=== PATIENT | male | born 1960 | race Caucasian/White ===

== ENCOUNTER → 2016-11-17 | Day surgery (SDC) | payer OTHER ==
[2016-11-07 11:21] VITALS: BMI 26.0
--- NOTE | 2016-11-07 11:55 | PAT Medication Instructions ---
Service Date Nov 07, 2016. Current Home Medication List Atenolol (Tenormin), 25 MG PO QAM Meloxicam (Mobic), 15 MG PO QAM Pantoprazole Sodium (Protonix), 40 MG PO QAM Pyridoxine (Vitamin B6), 100 MG PO DAILY PRN for prn Tocopheryl Acet,Dl-Alpha (Vitamin E), 1 TAB PO QAM Medication Instructions For Your Scheduled Surgery - Check with surgeon for instructions: Meloxicam (Mobic), 15 MG PO QAM - Hold the following medications 2 weeks prior to surgery: Tocopheryl Acet,Dl-Alpha (Vitamin E), 1 TAB PO QAM - Hold the following medications the morning of surgery: Pyridoxine (Vitamin B6), 100 MG PO DAILY PRN for prn - Take the following medications the morning of surgery with a sip of water: Pantoprazole Sodium (Protonix), 40 MG PO QAM Atenolol (Tenormin), 25 MG PO QAM - Take the following medications as scheduled the night before surgery: Pyridoxine (Vitamin B6), 100 MG PO DAILY PRN for prn If you have any questions please call us at [phone] or [phone] or [phone]
--- NOTE | 2016-11-07 12:44 | DIAGNOSTIC IMAGING REPORT ---
CHEST PREADMISSION(PA/LAT) CLINICAL HISTORY: Preoperative chest COMPARISON STUDY: 05/27/2013 FINDINGS: The cardiac and mediastinal contours are normal. There is no evidence of focal pulmonary consolidation. There is no evidence of failure. No pleural effusions are visualized.[ There is a linear band of subsegmental left lower lobe atelectasis. There is ankylosis of the dorsal spine. IMPRESSION: Left lower lobe subsegmental atelectatic change. Otherwise no acute findings. Electronically signed by: Jermaine Wiseman M.D. 11/07/2016 12:43 PM Dictated Date/Time: 11/07/2016 12:43 PM
[2016-11-07 13:00] LABS: URINE APPEARANCE CLEAR (CLEAR); URINE BILIRUBIN NEG (NEG); URINE COLOR YELLOW; URINE NITRITE NEG (NEG); URINE PH 8.5 (4.5-7.5); URINE SPECIFIC GRAVITY 1.018 (1.000-1.030); UROBILINOGEN NEG (NEG); ZZUR CULT IF INDIC CLEAN CATCH NO
[2016-11-07 13:05] LABS: MANUAL MICROSCOPIC REQUIRED? NO; REVIEW REQ? NO
--- NOTE | 2016-11-16 11:51 | HISTORY & PHYSICAL EXAMINATION ---
DATE OF ADMISSION: 11/17/2016 CHIEF COMPLAINT: Left foot pain. HISTORY OF PRESENT ILLNESS: The patient is a 56-year-old gentleman with known hallux valgus deformity about his left great toe. He is having increasing pain with weightbearing and daily activities as well as difficulty with shoe wear. Due to ongoing pain and disability, he now desires to proceed with left hallux valgus bunionectomy. PAST MEDICAL HISTORY: Hypertension, anxiety, ankylosing spondylitis, Crohn's disease. PAST SURGICAL HISTORY: Unknown. MEDICATIONS: Cosentyx 150 mg injection every 4 weeks, Relafen 500 mg 2 times daily, vitamin B12 1000 mcg daily, vitamin D3 500 mg daily, Tenormin 25 mg daily, Protonix 40 mg 30 minutes before first meal of the day, Neurontin 100 mg 2 capsules 3 times daily, melatonin 5 mg at bedtime. ALLERGIES: CIPRO, BEE STINGS, CHANTIX, ENBREL, SHELLFISH. SOCIAL HISTORY AND REVIEW OF SYSTEMS: Noncontributory. PHYSICAL EXAMINATION: GENERAL: Well-nourished, well-developed male who appears his stated age. HEENT: Normocephalic, atraumatic, extraocular movements intact, oropharynx pink and moist. NECK: Supple without adenopathy. LUNGS: Clear to auscultation bilaterally. HEART: Regular rate and rhythm. ABDOMEN: Soft, nontender, nondistended. EXTREMITIES: The upper extremities within normal limits. The left foot has a visual bunion deformity of the first ray. There is valgus alignment of the first MTP joint. X-RAYS: X-rays were reviewed. He has moderate to severe hallux valgus deformity about the first MTP joint. ASSESSMENT: Left foot hallux valgus deformity. PLAN: Risks versus benefits were discussed, consent was obtained. We will proceed with left foot man bunionectomy without proximal osteotomy upon preoperative workup and medical clearance.
[~2016-11-17] VITALS: Ht 167.6 cm; Wt 74.8 kg
[~2016-11-17] MED LIST: ACETAMINOPHEN 500 MG TAB PO SCH; ATEN-173 PO; CLINDAMYCIN 600 MG/54 ML D5W IV SCH; CeleBREX 200 MG CAP PO SCH; DEXAMETHASONE 4 MG TAB PO SCH; FAMOTIDINE 20 MG TAB PO SCH; FENTANYL CITRATE INJ 50 MCG/1 ML 2 ML VIAL ONE; FERR1TAB13 PO; GABAPENTIN 300 MG CAP PO SCH; HYDR-5688 PO; LACTATED RINGER'S 1000ML 1,000 ML IV SCH; LIDOCAINE 2% 20 MG/ML 5ML SYR ONE; MAGN250T8 PO; MELO15TA4 PO; METOCLOPRAMIDE HCL 10 MG TAB PO SCH; MIDAZOLAM HCL 1 MG/ML 2ML VIAL ONE; PANT40TA PO; PROPOFOL IV EMULSION 10 MG/ML 20 ML VIAL IV ONE; PYRI100T4 PO; TPRSR/25 PO; VTME100 PO; magnesium PO
[2016-11-17 06:03] VITALS: BP 131/73; PULSE 98; TEMP 39.3; O2SAT 96; Ht 167.6 cm; Wt 74.8 kg
[2016-11-17 06:16] LABS: BASO % 0.2 %; BASO ABS # 0.02 K/uL (0-0.2); EOS % 0.6 %; HEMATOCRIT 37.1 % (42-52); IG% 0.3 %; LYMPH ABS # 0.56 K/uL (1.2-3.4); MEAN CELL VOLUME 83.9 fL (80-100); MEAN PLATELET VOLUME 10.3 fL (7.4-10.4); MONO % 8.3 %; NEUT % 84.6 %; PLATELET COUNT 148 K/uL (130-400); RED BLOOD COUNT 4.42 M/uL (4.7-6.1); WHITE BLOOD COUNT 9.26 K/uL (4.8-10.8)
[2016-11-17 06:18] LABS: COMPLETE YES; MEAN CORPUSCULAR HGB CONC 34.5 g/dl (32-36)
--- NOTE | 2016-11-17 07:06 | Progress Note ---
Progress Note Date of Service Nov 17, 2016. Progress Note Pt w/ fever of 39.3, cough, lethargy, decreased breath sounds at R base. Suspect respiratory process. Case cancelled to avoid increased risk of respiratory complications w/ anesthesia. Pt asked to see PCP.
[2016-11-17 07:48] LABS: ESTIMATED AVERAGE GLUCOSE 100 mg/dl; HA1C FLAG Normal (Normal)
--- NOTE | 2016-11-24 13:38 | EDITING REQUIRED CODING QUERY ---
SUPPORTING DIAGNOSIS NEEDED A supporting diagnosis is required for the test/procedure performed on this patient in order for us to be reimbursed by the patient's insurance. Please provide a supporting diagnosis for the following test/procedure listed below next to the test name along with your signature. *If there is no additional diagnosis for this patient that would support the following test/procedure please document that below next to the test/procedure. Test(s)/Procedure(s) that require a supporting diagnosis: * HEMOGLOBIN A1C Diabetes DIAGNOSIS: Provider Signature: Date: Thank you Valentina Jack Vittana Information Management Once completed, please kindly fax back to [phone] For questions please call [phone]
== END | disposition home or self-care (01) ==
LOC: C.ACU 11-07 11:03
DX: M20.12 Hallux valgus (acquired), left foot (principal); Z53.9 Procedure and treatment not carried out, unspecified reason; E11.9 Type 2 diabetes mellitus without complications

== ENCOUNTER → 2017-01-09 | Outpatient (CLI) | payer OTHER ==
[~2017-01-09] MED LIST changes: -ACETAMINOPHEN 500 MG TAB PO SCH; -CLINDAMYCIN 600 MG/54 ML D5W IV SCH; -CeleBREX 200 MG CAP PO SCH; -DEXAMETHASONE 4 MG TAB PO SCH; -FAMOTIDINE 20 MG TAB PO SCH; -FENTANYL CITRATE INJ 50 MCG/1 ML 2 ML VIAL ONE; -GABAPENTIN 300 MG CAP PO SCH; -LACTATED RINGER'S 1000ML 1,000 ML IV SCH; -LIDOCAINE 2% 20 MG/ML 5ML SYR ONE; -METOCLOPRAMIDE HCL 10 MG TAB PO SCH; -MIDAZOLAM HCL 1 MG/ML 2ML VIAL ONE; -PROPOFOL IV EMULSION 10 MG/ML 20 ML VIAL IV ONE
== END | disposition home or self-care (01) ==
LOC: C.CPL 11:26
DX: M20.12 Hallux valgus (acquired), left foot (principal)

== ENCOUNTER 2017-01-12 09:44 | Day surgery (SDC) | payer OTHER ==
--- NOTE | 2017-01-11 11:58 | HISTORY & PHYSICAL EXAMINATION ---
DATE OF ADMISSION: 01/12/2017 CHIEF COMPLAINT: Left foot pain. HISTORY OF PRESENT ILLNESS: The patient is a 56-year-old male, seen and evaluated in our office for left foot pain and disability. X-rays and evaluation demonstrated a hallux valgus deformity. Due to ongoing pain and disability and difficulty with shoe wear, the patient now desires to proceed with a left foot hallux valgus correction. PAST MEDICAL HISTORY: Hypertension, depression, anemia, cirrhosis of the liver, and enlarged prostate. PAST SURGICAL HISTORY: Hernia repair. MEDICATIONS: Meloxicam 15 mg daily, atenolol 25 mg daily, pantoprazole 40 mg daily, and ferrous sulfate daily. ALLERGIES: PENICILLIN, BEE STINGS AND SHELLFISH. SOCIAL HISTORY AND REVIEW OF SYSTEMS: Noncontributory. PHYSICAL EXAMINATION: GENERAL: Well-nourished and well-developed male, who appears his stated age. HEENT: Normocephalic and atraumatic. Extraocular movements intact. Oropharynx is pink and moist. NECK: Supple without adenopathy. LUNGS: Clear to auscultation bilaterally. HEART: Regular rate and rhythm. ABDOMEN: Soft, nontender, and nondistended. EXTREMITIES: The upper extremities are within normal limits. The left foot demonstrates an obvious hallux valgus deformity. He has a large medial eminence. X-RAYS: X-rays were reviewed. There is obvious hallux valgus deformity. ASSESSMENT: Left foot hallux valgus deformity. PLAN: Apparent risks versus benefits discussed. Consent was obtained. The patient's primary care physician is Dr. Díaz. We will proceed with left foot Singh bunionectomy upon preoperative workup and medical clearance. CHINO
[2017-01-11 13:19] VITALS: BMI 26.0
[~2017-01-12] VITALS: Ht 167.6 cm; Wt 74.5 kg
[~2017-01-12 09:44] MED LIST changes: +CLINDAMYCIN 600 MG/54 ML D5W IV SCH; -HYDR-5688 PO; +LACTATED RINGER'S 1000ML 1,000 ML IV SCH; -PYRI100T4 PO; -TPRSR/25 PO; -VTME100 PO; -magnesium PO
[2017-01-12 10:22] VITALS: BP 135/79; PULSE 65; TEMP 36.7; O2SAT 99; Ht 167.6 cm; Wt 74.5 kg
[2017-01-12 10:51] LABS: INR 1.3 (0.9-1.1); PARTIAL THROMBOPLASTIN RATIO 1.2; PROTHROMBIN TIME (PATIENT) 13.9 SECONDS (9.0-12.0)
[2017-01-12] MEDS ORDERED: ROPIVACAINE 0.5% 5 MG/ML 30 ML VIAL ONE (10:57)
[2017-01-12] MEDS ORDERED: ATROPINE SULFATE 0.1 MG/ML 5ML SYR IV PRN (11:45)
[2017-01-12] MEDS ORDERED: ONDANSETRON INJ 2 MG/ML 2 ML VIAL IV PRN (11:45)
[2017-01-12] MEDS ORDERED: EpHEDrine SULFATE INJ 50 MG/ML AMP IV PRN (11:45)
[2017-01-12] MEDS ORDERED: PHENYLEPHRINE 100MCG/ML 5ML SYR IV PRN (11:45)
--- NOTE | 2017-01-12 12:05 | History & Physical Bridge Note ---
H&P Re-Evaluation Bridge Note: I have examined the patient, reviewed the History & Physical and in the interval since the performance of the History & Physical I have noted the following changes of clinical significance: No changes noted
[2017-01-12] MEDS ORDERED: MIDAZOLAM HCL 1 MG/ML 2ML VIAL ONE (12:28)
[2017-01-12] MEDS ORDERED: FENTANYL CITRATE INJ 50 MCG/1 ML 2 ML VIAL ONE (12:28)
[2017-01-12] MEDS ORDERED: PROPOFOL IV EMULSION 10 MG/ML 20 ML VIAL IV ONE (13:47)
[2017-01-12] MEDS ORDERED: LIDOCAINE HCL 2% 2 ML VIAL (20MG/ML) ONE (13:47)
[2017-01-12] MEDS ORDERED: ONDANSETRON INJ 2 MG/ML 2 ML VIAL ONE (13:47)
[2017-01-12] MEDS ORDERED: DEXAMETHASONE SOD INJ 4 MG/ML VIAL ONE (13:47)
[2017-01-12] MEDS ORDERED: EpHEDrine SULFATE 50MG/5ML SYR ONE (13:47)
--- NOTE | 2017-01-12 14:01 | [facility] Post Operative Brief Note ---
Immediate Operative Summary Operative Date Jan 12, 2017. Pre-Operative Diagnosis Left Foot Hallux Valgus Deformity Post-Operative Diagnosis Left Foot Hallux Valgus Deformity Procedure(s) Performed Left Foot Singh Bunionectomy Surgeon Dr. Davey Content Architect Surgeon(s) KATI [place] Estimated Blood Loss 1cc Findings severe hallux valgus Specimens A. Medial Emenants Left Great Toe Complication(s) None Disposition Recovery Room / PACU
[2017-01-12] MEDS ORDERED: SODIUM CHLORIDE 0.9% 1000ML 1,000 ML IV SCH (14:17)
[2017-01-12] MEDS ORDERED: HYDR-5688 PO (14:19)
--- NOTE | 2017-01-12 14:20 | OPERATIVE REPORT ---
DATE OF OPERATION: 01/12/2017 PREOPERATIVE DIAGNOSIS: Hallux valgus left great toe. POSTOPERATIVE DIAGNOSIS: Hallux valgus left great toe. PROCEDURE: Bunionectomy, left great toe. SURGEON: Dr. Davey. ROVING SIZER: Ryley Galeana PA-C. ANESTHESIA: General. COMPLICATIONS: None. Mr. Galeana was essential through all portions of the case including prepping, draping, positioning, surgical first assistant, wound closure and dressing application. OPERATION AND FINDINGS: The patient's left foot was prepped and draped in usual sterile manner. Limb was exsanguinated with an Esmarch bandage and ankle tourniquet was applied. A longitudinal incision was made over the medial eminence. Subcutaneous tissue was bluntly dissected. Electrocautery was used for hemostasis. An L-shaped incision was made the base at the joint line extending proximally along the first metatarsal. A 5 mm section of the distal limb was removed. Attention was turned to the first interspace where a longitudinal incision was made and releases were carried out laterally to release any valgus creating soft tissue. The toe was held in a straightened position and was affixed using a single 0.062 K-wire. Wounds were irrigated and the medial capsule was closed using 4-0 Tycron. Subcutaneous tissue was closed using 2-0 Monocryl and the skin was closed with 4-0 nylon. Layered repair was carried out in the incision in the first interspace as well. Sterile dressing of Adaptic, fluffs, 4 x 4's, Kerlix and Coban was applied. The patient was awakened and taken to recovery in stable and good condition. He tolerated the procedure well. I attest to the content of the Intraoperative Record and any orders documented therein. Any exceptions are noted below. MTDD
--- NOTE | 2017-01-12 14:20 | DIAGNOSTIC IMAGING REPORT ---
LEFT TOE(S) MIN 2 VIEWS CLINICAL HISTORY: LT BUNIONECTOMY COMPARISON: None. DISCUSSION: Evidence for bunionectomy and linear pin fixation expected postoperative change within the soft tissues IMPRESSION: Intraoperative image intensifier usage for a left bunionectomy and pin fixation The above report was generated using voice recognition software. It may contain grammatical, syntax or spelling errors. Electronically signed by: Armani Fitzgerald M.D. 01/12/2017 2:19 PM Dictated Date/Time: 01/12/2017 2:18 PM
--- NOTE | 2017-01-12 14:25 | Discharge Instructions ---
Discharge Instructions Date of Service Jan 12, 2017. Visit Reason for Visit: Left Foot Hallux Valgus Discharge Discharge Diagnosis / Problem: Left foot hallux valgus Discharge Goals Goal(s): Decrease discomfort, Improve function Activity Recommendations Activity Limitations: as noted below Weightbearing Status: Left weightbearing (as tolerated) Anesthesia . Post Anesthesia Instructions: If you have had General Anesthesia or IV Sedation: * Do not drive today. * Resume driving when surgeon permits. * Do not make important decisions or sign legal documents today. * Call surgeon for: 1. Temperature elevations greater than 101 degrees F. 2. Uncontrollable pain. 3. Excessive bleeding. 4. Persistent nausea and vomiting. 5. Medication intolerance (nausea, vomiting or rash). * For nausea and vomiting use only clear liquids such as: tea, soda, bouillon until nausea subsides, then gradually increase diet as tolerated. * If you have any concerns or questions, call your surgeon's office. If physician is unavailable and it is an emergency, call 911 or go to the nearest emergency room. . Instructions / Follow-Up Instructions / Follow-Up Weightbearing as tolerated with post-op shoe. Frequent ice and elevation as needed. Maintain dressing until follow-up with MD. Follow-up with MD in 3-5 days for dressing change. Call for appt if necessary. Diet Recommendations Recommended Home Diet: resume previous diet Procedures Procedures Performed: Left Foot Singh Bunionectomy Pending Studies Studies pending at discharge: no Medical Emergencies . Who to Call and When: Medical Emergencies: If at any time you feel your situation is an emergency, please call 911 immediately. . Non-Emergent Contact Non-Emergency issues call your: Surgeon Call Non-Emergent contact if: temperature is above 101.5, your pain is not controlled, wound has increased drainage, wound has increased redness . . "Provider Documentation" section prepared by Ryley Galeana PA-C. . [place] Drug Monitoring Program Search Results: patient reviewed within database, no issues identified
[2017-01-12] MEDS: HYDROmorphone INJ 2 MG/ML SYR/VIAL IV PRN ×2 (14:29→14:41)
[2017-01-12] MEDS ORDERED: OXYCODONE/ACETAMINOPHEN 5-325 TAB PO PRN (14:30)
[2017-01-12] MEDS ORDERED: HYDROCODONE/ACETAMOPHEN 5/325MG TAB PO PRN (14:30)
--- NOTE | 2017-01-12 14:43 | Anesthesiology Progress Note ---
Anesthesia Post Op Note Date & Time Jan 12, 2017 at 14:43 Vital Signs Pain Intensity: 8.0 Vital Signs Past 12 Hours Date Time Temp Pulse Resp B/P (MAP) Pulse Ox O2 Delivery O2 Flow Rate FiO2 01/12/17 14:20 36.4 94 18 126/80 100 Mask 10 01/12/17 10:22 36.7 65 20 135/79 (97) 99 Room Air Notes Mental Status: alert / awake / arousable, participated in evaluation Pt Amnestic to Procedure: Yes Nausea / Vomiting: adequately controlled Pain: adequately controlled Airway Patency, RR, SpO2: stable & adequate BP & HR: stable & adequate Hydration State: stable & adequate Anesthetic Complications: no major complications apparent
[2017-01-12 15:15] VITALS: BP 139/78; PULSE 79; TEMP 36.5; O2SAT 95
[2017-01-12 15:45] VITALS: BP 140/85; PULSE 80; O2SAT 95
[2017-01-12] MEDS ORDERED: OXYCODONE/ACETAMINOPHEN 5-325 TAB ONE (15:57)
[2017-01-12 16:15] VITALS: BP 142/86; PULSE 78; TEMP 36.5; O2SAT 95
== END 2017-01-12 16:25 | disposition home or self-care (01) ==
LOC: C.ACU 09:44
DX: M20.12 Hallux valgus (acquired), left foot (principal); I10 Essential (primary) hypertension; D64.9 Anemia, unspecified; K74.60 Unspecified cirrhosis of liver; Z86.59 Personal history of other mental and behavioral disorders

== ENCOUNTER 2017-02-02 17:23 | Emergency (ER) | payer OTHER ==
[~2017-02-02] VITALS: Ht 167.6 cm; Wt 76.0 kg
[~2017-02-02 17:23] MED LIST changes: -CLINDAMYCIN 600 MG/54 ML D5W IV SCH; +HYDR-5688 PO; -LACTATED RINGER'S 1000ML 1,000 ML IV SCH; -MAGN250T8 PO
[2017-02-02 17:29] VITALS: TEMP 36.8; Ht 167.6 cm; Wt 76.0 kg
[2017-02-02] MEDS ORDERED: HYDROmorphone INJ 0.5 MG/0.5 ML SYR IV STA (17:46)
--- NOTE | 2017-02-02 18:02 | EMERGENCY ROOM VISIT NOTE ---
History Report prepared by Iram: Andres Spangler Under the Supervision of: Dr. Yris Chaidez D.O. First contact with patient: 17:33 Chief Complaint: EDEMA TO EXTREMITY Stated Complaint: POSSIBLE DVT - POST-OP History of Present Illness The patient is a 56 year old male who presents to the Emergency Room with complaints of worsening edema that began a week ago. He rates his pain as a 10/ 10 in severity. The patient states that he had a bunionectomy two weeks ago and a repair of his hammer toe. He states that he went back to get his stitches out a week ago and admits to some mild lower extremity edema in his left foot. The patient states that in the last two days the edema had worsened. He admits that he has been changing his dressings twice a day and elevating his foot at all times. The patient states that the pain in his foot was so severe that he "wanted to cut his foot off". He admits that he was given hydrocodone, but reports that he is allergic to Codeine. He states that he recently changed his blood pressure medication to Metoprolol and believes that this caused his edema since he noticed the swelling when he took the medication. He also states that he also has been noticing spikes in his blood pressure and a hot sensation in his face. He also admits to experiencing constipation. The patient states that he has a paradoxical reaction to Benadryl and cannot take NSAIDS due to his previous episode of "bleeding out and losing 9 pints". He reports that he has been able to take Dilaudid in the past. The patient admits that he has a history of Chron's disease and ulcers. He admits that he is a former smoker and drinker. The patient denies any fevers, chills, SOB, chest pain, chest pressure , heart palpitations, nausea, and a history of a blood clot. Source of History: patient Onset: one week ago Position: foot (left) Symptom Intensity: 10/10 Timing: worsening Modifying Factors (Relieving): elevation Associated Symptoms: No fevers, No chills, No chest pain, No SOB, No nausea Note: Associated symptoms include: spiked blood pressure, hot sensation in his face, left foot pain Review of Systems See HPI for pertinent positives & negatives. A total of 10 systems reviewed and were otherwise negative. 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 (11) Esophagitis Nos (12) Hypertension Nos (13) Liver disease, chronic, due to alcohol (14) Portal Hypertension (15) Psychosis Nos Surgical Problems: (1) No significant past surgical history Family History Cancer Gallbladder disease Heart disease Hypertension Lung disease Social History Smoking Status: Former Smoker Alcohol Use: occasionally Drug Use: none Marital Status: single Housing Status: lives alone Occupation Status: disabled Current/Historical Medications Scheduled Meloxicam (Mobic), 15 MG PO QAM Metoprolol Succinate (Metoprolol Succinate ER), 25 MG PO DAILY Pantoprazole Sodium (Protonix), 40 MG PO QAM Scheduled PRN Hydrocodone/Acetaminophen 5MG/325MG (Benedict 5MG/325MG), 1-2 TABLET PO q4-6 PRN for Pain Allergies Coded Allergies: Adalimumab (Verified Allergy, Severe, RASH, 01/12/17) severe cutaneous local reaxtion Etanercept (Verified Allergy, Severe, rash, 01/12/17) severe cutaneous local reaxtion SHELL FISH (Verified Allergy, Severe, ANAPHYLAXIS, 01/12/17) Tromethamine (Verified Allergy, Severe, rash, 01/12/17) severe cutaneous local reaxtion Penicillins (Verified Allergy, Intermediate, passed out, 01/12/17) BEE STING (Verified Allergy, Unknown, Passed out., 01/12/17) Benzyl Alcohol (Verified Allergy, Unknown, UNKNOWN, 01/12/17) Shellfish (Verified Adverse Reaction, Unknown, Hypertension., 01/12/17) Varenicline (Verified Adverse Reaction, Unknown, Veins in feet blew., 01/12) Uncoded Allergies: BEE STINGS (Allergy, Severe, SHORTNESS OF BREATH/ANAPHYLAXIS, 11/07/16) Physical Exam Vital Signs Date Time Temp Pulse Resp B/P (MAP) Pulse Ox O2 Delivery O2 Flow Rate FiO2 02/02/17 20:44 87 19 131/80 97 02/02/17 20:03 89 19 129/82 96 Room Air 02/02/17 18:17 90 18 124/83 96 Room Air 02/02/17 17:29 36.8 95 20 122/79 93 Room Air Physical Exam GENERAL: alert, well appearing, well nourished, no distress, non-toxic EYE EXAM: normal conjunctiva, PERRL and EOM's grossly intact OROPHARYNX: no exudate, no erythema, lips, buccal mucosa, and tongue normal and mucous membranes are moist NECK: supple, no nuchal rigidity, no adenopathy, non-tender LUNGS: Diminished breath sounds bilaterally. No rales or rhonchi. Normal chest wall mechanics HEART: no murmurs, S1 normal and S2 normal ABDOMEN: Small umbilical hernia that is easily reduced abdomen soft, Slightly tympanitic to percussion, normo-active bowel sounds, no masses, no rebound or guarding. BACK: Back is symmetrical on inspection and there is no deformity, no midline tenderness, no CVA tenderness. SKIN: no rashes and no bruising UPPER EXTREMITIES: upper extremities are grossly normal. LOWER EXTREMITIES: left lower extremity edema 3+.Well appearing and well healing surgical incision along medial aspect of first MTP. Slightly decreased ROM secondary to pain. No surrounding erythema, drainage, or bleeding. Normal sensory. Pulses are intact. Right lower extremity is unremarkable. NEURO EXAM: Normal sensorium, cranial nerves II-XII grossly intact, normal speech, no gross weakness of arms, no gross weakness of legs. Gross sensation intact. Medical Decision & Procedures ER Provider Diagnostic Interpretation: Radiology results have been interpreted by the radiologist and reviewed by me. LEFT LOWER EXTREMITY VENOUS DOPPLER CLINICAL HISTORY: Bilateral lower extremity edema. COMPARISON STUDY: Bilateral lower extremity venous Doppler May 26, 2013. TECHNIQUE: Sonography of the deep venous system of the left lower extremity was performed. Compression and augmentation were evaluated. FINDINGS: The left common femoral, superficial femoral and popliteal veins were compressible. Augmentation was normal. Flow was shown within the deep calf vessels. IMPRESSION: No evidence of deep venous thrombus within the left lower extremity. Electronically signed by: Raul Burkett M.D. 02/02/2017 7:47 PM Dictated Date/Time: 02/02/2017 7:41 PM ABDOMEN 4 VIEWS HISTORY: nausea, abdominal distention COMPARISON: Chest 11/07/2016. Abdomen and pelvis CT 07/14/2014. FINDINGS: The lungs are clear. The cardiomediastinal silhouette is within normal limits. There is no pneumoperitoneum or pneumatosis. Multiple mildly distended gas-filled loops of large and small bowel. The small bowel loops measure up to 3.2 cm in diameter. The transverse colon measures up to 6.4 cm. No evidence for bowel obstruction. No pathologic calcifications. IMPRESSION: Multiple mildly dilated gas-filled loops of large and small bowel. This favors an ileus. Electronically signed by: Jorge Luis Nguyen M.D. 02/02/2017 8:02 PM Dictated Date/Time: 02/02/2017 7:57 PM Laboratory Results 02/02/17 18:11 Red Blood Count 4.51, Mean Corpuscular Volume 82.9, Mean Corpuscular Hemoglobin 29.3, Mean Corpuscular Hemoglobin Concent 35.3, Mean Platelet Volume 9.1, Neutrophils (%) (Auto) 60.9, Lymphocytes (%) (Auto) 23.1, Monocytes (%) (Auto) 11.3, Eosinophils (%) (Auto) 2.8, Basophils (%) (Auto) 1.8, Neutrophils # (Auto ) 4.86, Lymphocytes # (Auto) 1.84, Monocytes # (Auto) 0.90, Eosinophils # (Auto ) 0.22, Basophils # (Auto) 0.14 02/02/17 18:11 Test 02/02/17 18:11 White Blood Count 7.97 K/uL (4.8-10.8) Red Blood Count 4.51 M/uL (4.7-6.1) Hemoglobin 13.2 g/dL (14.0-18.0) Hematocrit 37.4 % (42-52) Mean Corpuscular Volume 82.9 fL (80-100) Mean Corpuscular Hemoglobin 29.3 pg (25-34) Mean Corpuscular Hemoglobin Concent 35.3 g/dl (32-36) Platelet Count 318 K/uL (130-400) Mean Platelet Volume 9.1 fL (7.4-10.4) Neutrophils (%) (Auto) 60.9 % Lymphocytes (%) (Auto) 23.1 % Monocytes (%) (Auto) 11.3 % Eosinophils (%) (Auto) 2.8 % Basophils (%) (Auto) 1.8 % Neutrophils # (Auto) 4.86 K/uL (1.4-6.5) Lymphocytes # (Auto) 1.84 K/uL (1.2-3.4) Monocytes # (Auto) 0.90 K/uL (0.11-0.59) Eosinophils # (Auto) 0.22 K/uL (0-0.5) Basophils # (Auto) 0.14 K/uL (0-0.2) RDW Standard Deviation 49.1 fL (36.4-46.3) RDW Coefficient of Variation 16.2 % (11.5-14.5) Immature Granulocyte % (Auto) 0.1 % Immature Granulocyte # (Auto) 0.01 K/uL (0.00-0.02) Anion Gap 7.0 mmol/L (3-11) Est Creatinine Clear Calc Drug Dose 105.8 ml/min Estimated GFR () 122.6 Estimated GFR (Non- 105.8 BUN/Creatinine Ratio 9.6 (10-20) Calcium Level 8.8 mg/dl (8.5-10.1) Phosphorus Level 3.7 mg/dl (2.5-4.9) Magnesium Level 1.9 mg/dl (1.8-2.4) Total Bilirubin 1.0 mg/dl (0.2-1) Aspartate Amino Transf (AST/SGOT) 40 U/L (15-37) Alanine Aminotransferase (ALT/SGPT) 29 U/L (12-78) Alkaline Phosphatase 148 U/L (45-117) Total Protein 7.7 gm/dl (6.4-8.2) Albumin 3.0 gm/dl (3.4-5.0) Globulin 4.7 gm/dl (2.5-4.0) Albumin/Globulin Ratio 0.6 (0.9-2) Ethyl Alcohol mg/dL 285.0 mg/dl (0-3) Laboratory results per my review. Medications Administered Medications (Trade) Dose Ordered Sig/Ronaldo Route Start Time Stop Time Status Last Admin Dose Admin Hydromorphone HCl (Dilaudid Inj) 0.5 mg NOW STAT IV 02/02/17 17:46 02/02/17 17:48 DC 02/02/17 18:26 0.5 MG ED Course 1735: The patient was evaluated in room A09B. A complete history and physical exam was performed. 1746: Ordered Dilaudid Injection 0.5 mg IV. 1957: Upon reevaluation, the patient is feeling better. Admits to daily wine and 2 cigarettes a day. Discussed risks of this and his overall health, discussed risks of meloxicam given hx of PUD and gi bleed. He states this is being managed by his PCP to help with the pain of his ankylosing spondylitis. I discussed the findings and the treatment plan with the patient. He verbalizes agreement and understanding. The patient was discharged home. Medical Decision The differential diagnosis includes etiologies such as DVT, musculoskeletal, infection, joint effusion, trauma, lymphedema, idiopathic, CHF, as well as others were entertained. No evidence of dvt, no evidence of infection from wound/incision. Labs otherwise reassuring with exception of alcohol intoxication. Discussed alcohol use and tobacco cessation at bedside with pt. Discussed risks associated with this. Discussed meloxicam given hx of GI bleed and PUD. Discussed f/u with surgeon and with PCP, sx to watch/return for, he verbalized understanding and was agreeable with plan. Discussed elevation of leg when seated or at rest. Abd soft, nontender, no vomiting and no fevers, ileus likely from meds and recent constipation. Discussed tx of constipation at home. [place] Drug Monitoring Program Search Results: patient reviewed within database, see additional documentation Drug Monitoring Findings: PDMP shows 60 tablets of Vicodin on January 12 and January 31. Medication Reconcilliation Current Medication List: was personally reviewed by me Blood Pressure Screening Patient's blood pressure: Elevated blood pressure Blood pressure disposition: Elevated BP felt to be situational Impression Primary Impression: Alcohol intoxication Additional Impressions: Lower extremity edema Constipation Ileus Scribe Attestation The scribe's documentation has been prepared under my direction and personally reviewed by me in its entirety. I confirm that the note above accurately reflects all work, treatment, procedures, and medical decision making performed by me. Departure Information Dispostion Home / Self-Care Referrals Tam Davey M.D. (PCP) Forms HOME CARE DOCUMENTATION FORM, IMPORTANT VISIT INFORMATION, WORK / SCHOOL INSTRUCTIONS Patient Instructions My [facility] Additional Instructions Please take your medications as prescribed. Please continue the medications to help with your bowel movements and stay well hydrated. Please ambulate per your surgeons instructions. Please continue to keep your incision clean and with a bandage in place to protect it. Please elevate your leg when seated or resting to help minimize swelling. You may also want to consider compression stockings to minimize swelling. If the swelling persists, you may need a repeat ultrasound of the leg as a precaution. Please do not drink alcohol. Please consider quitting smoking. Please discuss the meloxicam with your family doctor as this increases your risk of bleeding from the GI tract which you are at risk for already. Please take your stomach medicine daily. If you have any new or worsening symptoms, please return to the emergency room. Problem Qualifiers Primary Impression: Alcohol intoxication Complication of substance-induced condition: uncomplicated Qualified Codes: F10.920 - Alcohol use, unspecified with intoxication, uncomplicated Additional Impressions: Constipation Constipation type: unspecified constipation type Qualified Codes: K59.00 - Constipation, unspecified
[2017-02-02 18:25] LABS: BASO % 1.8 %; BASO ABS # 0.14 K/uL (0-0.2); COMPLETE YES; EOS % 2.8 %; HEMATOCRIT 37.4 % (42-52); IG% 0.1 %; LYMPH % 23.1 %; LYMPH ABS # 1.84 K/uL (1.2-3.4); MEAN CELL VOLUME 82.9 fL (80-100); MEAN CORPUSCULAR HEMOGLOBIN 29.3 pg (25-34); MEAN CORPUSCULAR HGB CONC 35.3 g/dl (32-36); MEAN PLATELET VOLUME 9.1 fL (7.4-10.4); MONO % 11.3 %; NEUT % 60.9 %; PLATELET COUNT 318 K/uL (130-400); RED BLOOD COUNT 4.51 M/uL (4.7-6.1); WHITE BLOOD COUNT 7.97 K/uL (4.8-10.8)
[2017-02-02 18:43] LABS: BUN/CREATININE RATIO 9.6 (10-20); CALCIUM 8.8 mg/dl (8.5-10.1); CREATININE 0.72 mg/dl (0.60-1.40); MAGNESIUM 1.9 mg/dl (1.8-2.4); POTASSIUM 3.7 mmol/L (3.5-5.1)
[2017-02-02 18:45] LABS: ALB/GLOB RATIO 0.6 (0.9-2); PHOSPHORUS 3.7 mg/dl (2.5-4.9)
[2017-02-02] MEDS ORDERED: TPRSR/25 PO (19:00)
--- NOTE | 2017-02-02 19:48 | DIAGNOSTIC IMAGING REPORT ---
LEFT LOWER EXTREMITY VENOUS DOPPLER CLINICAL HISTORY: Bilateral lower extremity edema. COMPARISON STUDY: Bilateral lower extremity venous Doppler May 26, 2013. TECHNIQUE: Sonography of the deep venous system of the left lower extremity was performed. Compression and augmentation were evaluated. FINDINGS: The left common femoral, superficial femoral and popliteal veins were compressible. Augmentation was normal. Flow was shown within the deep calf vessels. IMPRESSION: No evidence of deep venous thrombus within the left lower extremity. Electronically signed by: Raul Burkett M.D. 02/02/2017 7:47 PM Dictated Date/Time: 02/02/2017 7:41 PM
--- NOTE | 2017-02-02 20:03 | DIAGNOSTIC IMAGING REPORT ---
ABDOMEN 4 VIEWS HISTORY: nausea, abdominal distention COMPARISON: Chest 11/07/2016. Abdomen and pelvis CT 07/14/2014. FINDINGS: The lungs are clear. The cardiomediastinal silhouette is within normal limits. There is no pneumoperitoneum or pneumatosis. Multiple mildly distended gas-filled loops of large and small bowel. The small bowel loops measure up to 3.2 cm in diameter. The transverse colon measures up to 6.4 cm. No evidence for bowel obstruction. No pathologic calcifications. IMPRESSION: Multiple mildly dilated gas-filled loops of large and small bowel. This favors an ileus. Electronically signed by: Jorge Luis Nguyen M.D. 02/02/2017 8:02 PM Dictated Date/Time: 02/02/2017 7:57 PM
[2017-02-02 20:44] VITALS: BP 131/80; PULSE 87; O2SAT 97
== END 2017-02-02 20:40 | disposition home or self-care (01) ==
LOC: C.EDB 17:24 → C.EDA 20:40
DX: R60.0 Localized edema (principal); F10.920 Alcohol use, unspecified with intoxication, uncomplicated; Y90.8 Blood alcohol level of 240 mg/100 ml or more; K59.00 Constipation, unspecified; K56.7 Ileus, unspecified; Z98.890 Other specified postprocedural states; F17.210 Nicotine dependence, cigarettes, uncomplicated; K50.90 Crohn's disease, unspecified, without complications; I25.2 Old myocardial infarction; F41.9 Anxiety disorder, unspecified; I48.91 Unspecified atrial fibrillation; I10 Essential (primary) hypertension; K74.60 Unspecified cirrhosis of liver; K76.6 Portal hypertension; Z80.9 Family history of malignant neoplasm, unspecified; Z82.49 Family history of ischemic heart disease and other diseases of the circulatory system; Z79.899 Other long term (current) drug therapy

== ENCOUNTER → 2017-06-27 | Day surgery (SDC) | payer OTHER ==
[2017-06-23 09:15] VITALS: BMI 26.0
[~2017-06-27] VITALS: Ht 167.6 cm; Wt 76.4 kg
[~2017-06-27] MED LIST changes: -FERR1TAB13 PO; -HYDR-5688 PO; +LIDOCAINE HCL 2% 2 ML VIAL (20MG/ML) ONE; +PROPOFOL IV EMULSION 10 MG/ML 20 ML VIAL IV ONE
[2017-06-27 09:42] VITALS: Ht 167.6 cm; Wt 76.4 kg
--- NOTE | 2017-06-27 10:01 | Endo History and Physical ---
History & Physical Date of Service: Jun 27, 2017. Chief Complaint: CROHN'S 1 YEAR FOLLOW UP Referring Physician: DR. SAVAGE History of Present Illness Crohns surveillance Past Medical History Reflux, Seizure Disorder, Hypertension, Liver Disease, Other Past Surgical History Hx Cardiac Surgery: No Hx Internal Defibrillator: No Hx Pacemaker: No Hx Abdominal Surgery: Yes (UMBILICAL AND RT INGUINAL HERNIA REPAIR) Hx of Implantable Prosthesis: No Hx Post-Op Nausea and Vomiting: No Hx Cancer Surgery: No Hx Thoracic Surgery: No Hx Orthopedic: Yes (LT FOOT BUNIONECTOMY AND HAMMER TOE) Hx Urinary Tract Surgery: No Family History None Social History Smoking Status: Former Smoker Hx Substance Use: No Hx Alcohol Use: Yes (OCCASIONAL) Allergies Coded Allergies: Adalimumab (Verified Allergy, Severe, RASH, 06/23/17) severe cutaneous local reaxtion Etanercept (Verified Allergy, Severe, RASH, 06/23/17) severe cutaneous local reaction SHELL FISH (Verified Allergy, Severe, ANAPHYLAXIS AND "I GET PURPLE", 06/23) Tromethamine (Verified Allergy, Severe, RASH, 06/23/17) Penicillins (Verified Allergy, Intermediate, PASSED OUT, 06/23/17) BEE STING (Verified Allergy, Unknown, PASSED OUT, 06/23/17) Benzyl Alcohol (Verified Allergy, Unknown, RASH, 06/23/17) Mouse Protein (Verified Allergy, Unknown, FACE AND MOUTH SWELL, 06/23/17) Secukinumab (Verified Allergy, Unknown, FACE AND MOUTH SWELL, 06/23/17) Sorbitan (Verified Allergy, Unknown, FACE AND MOUTH SWELL, 06/23/17) Varenicline (Verified Adverse Reaction, Unknown, VEINS IN FEET BLEW, ) Current Medications Reported Home Medications Medications Dose Route/Sig Max Daily Dose Days Date Category Dose Instructions Tenormin (Atenolol) 25 Mg Tab 25 Mg PO QAM 06/23/17 Reported Mobic (Meloxicam) 15 Mg Tab 15 Mg PO QAM 05/26/13 Reported Protonix (Pantoprazole Sodium) 40 Mg Tab 40 Mg PO QAM 08/27/12 Reported TAKE THIS MEDICATION 30 MINUTES BEFORE FIRST MEAL OF THE DAY. Vital Signs Weight (Kilograms): 76.36 Height (Feet): 5 Height (Inches): 6 Date Time Temp Pulse Resp B/P (MAP) Pulse Ox O2 Delivery O2 Flow Rate FiO2 1/30/18 09:53 36.4 80 18 118/78 (91) 96 Room Air Physical Exam General Appearance: WD/WN, no apparent distress Assessment and Plan colonoscopy today
--- NOTE | 2017-06-27 10:33 | Discharge Instructions ---
Endoscopy Patient Instructions Date / Procedure(s) Performed Jun 27, 2017. Colonoscopy Allergy Information Coded Allergies: Adalimumab (Verified Allergy, Severe, RASH, 06/23/17) severe cutaneous local reaxtion Etanercept (Verified Allergy, Severe, RASH, 06/23/17) severe cutaneous local reaction SHELL FISH (Verified Allergy, Severe, ANAPHYLAXIS AND "I GET PURPLE", 06/23) Tromethamine (Verified Allergy, Severe, RASH, 06/23/17) Penicillins (Verified Allergy, Intermediate, PASSED OUT, 06/23/17) BEE STING (Verified Allergy, Unknown, PASSED OUT, 06/23/17) Benzyl Alcohol (Verified Allergy, Unknown, RASH, 06/23/17) Mouse Protein (Verified Allergy, Unknown, FACE AND MOUTH SWELL, 06/23/17) Secukinumab (Verified Allergy, Unknown, FACE AND MOUTH SWELL, 06/23/17) Sorbitan (Verified Allergy, Unknown, FACE AND MOUTH SWELL, 06/23/17) Varenicline (Verified Adverse Reaction, Unknown, VEINS IN FEET BLEW, ) Discharge Date / Findings Jun 27, 2017. colonic stricture Medication Instructions Stopped Medication(s): AUDREY Restart Stopped Medication(s): OK to resume home medications as above Provider Instructions Activity Restrictions - No exercising or heavy lifting for 24 hours. - Do not drink alcohol the day of the procedure. - Do not drive a car or operate machinery until the day after the procedure. - Do not make any important decisions or sign important papers in 24 hours after the procedure. Following Day: - Return to full activity which may include returning to work/school. Diet Start your diet with liquids and light foods (jello, soup, juice, toast). Then eat your usual diet if not nauseated. Treatment For Common After Affects For mild abdominal pain, bloating, or excessive gas: - Rest - Eat lightly - Lie on right side Follow-Up Information Follow-up with DR. SAVAGE as scheduled Anesthesia Information What You Should Know You have had a procedure that required some medicine to reduce anxiety and discomfort. This treatment is called moderate sedation. After receiving the treatment, you may be sleepy, but you will be able to breathe on your own. The effects of the treatment may last for several hours. Follow these instructions along with Activity/Diet recommendations noted above: * Do NOT do anything where dizziness or clumsiness would be dangerous. * Rest quietly at home today, then you can be up and about tomorrow. * Have a responsible person stay with you the rest of today. * You may have had an I.V. today. If so, you may take the dressing off later today. Recommendations Call your doctor if: * Trouble breathing * Continuous vomiting for more than 24 hours * Temperature above 101 degrees * Severe abdominal pain or bloating * Pain not relieved by pain medicine ordered * There is increased drainage or redness from any incision * A large amount of rectal bleeding greater than 2-3 tablespoons. (If you had a polyp/s removed or have hemorrhoids, a small amount of blood - from the rectum is to be expected.) * You have any unanswered questions or concerns. IN THE EVENT OF A SERIOUS EMERGENCY, GO TO THE NEAREST EMERGENCY ROOM Your discharge instructions were prepared by provider Anuja Hernadez. Patient Instructions Signature Page Lm Armenta Patient (or Guardian) Signature/Date: I have read and understand the instructions given to me by my caregivers. Caregiver/RN/Doctor Signature/Date: The above-named patient and/or guardian has received patient instructions on this date. + Original Patient Signature Page (only) stays with chart. Please make copy for patient.
--- NOTE | 2017-06-27 10:36 | GI REPORT ---
Procedure Date: 06/27/2017 10:16 AM Procedure: Colonoscopy Indications: High risk colon cancer surveillance: Crohn's small and large intestine Medicines: Propofol per Anesthesia Complications: No immediate complications. Estimated blood loss: Minimal. Estimated Blood Loss: Estimated blood loss was minimal. Procedure: Pre-Anesthesia Assessment: - Prior to the procedure, a History and Physical was performed, and patient medications, allergies and sensitivities were reviewed. The patient's tolerance of previous anesthesia was reviewed. - The risks and benefits of the procedure and the sedation options and risks were discussed with the patient. All questions were answered and informed consent was obtained. - Patient identification and proposed procedure were verified prior to the procedure by the physician and the nurse. The procedure was verified in the pre-procedure area in the procedure room. - Mental Status Examination: alert and oriented. Airway Examination: normal oropharyngeal airway and neck mobility. Respiratory Examination: clear to auscultation. CV Examination: normal. Abdominal Examination: bowel sounds present, abdomen soft and non-tender, no masses or organomegaly noted. - ASA Grade Assessment: III - A patient with severe systemic disease. After I obtained informed consent, the scope was passed under direct vision. Throughout the procedure, the patient's blood pressure, pulse, and oxygen saturations were monitored continuously. The scope was introduced through the anus with the intention of advancing to the cecum. The scope was advanced to the hepatic flexure before the procedure was aborted. Medications were given. The colonoscopy was performed without difficulty. The patient tolerated the procedure well. The quality of the bowel preparation was good. Findings: The perianal and digital rectal examinations were normal. Pertinent negatives include normal sphincter tone and no palpable rectal lesions. A benign-appearing, intrinsic severe stenosis was found at 60 cm proximal to the anus and was non-traversed. Biopsies were taken with a cold forceps for histology. Verification of patient identification for the specimen was done by the physician and nurse using the patient's name and date. Estimated blood loss was minimal. Normal mucosa was found in the entire colon. Biopsies were taken with a cold forceps for histology. Verification of patient identification for the specimen was done by the physician and nurse using the patient's name and date. Estimated blood loss was minimal. Internal hemorrhoids were found during retroflexion. The hemorrhoids were medium-sized and Grade I (internal hemorrhoids that do not prolapse). Impression: - Stricture at 60 cm proximal to the anus. Biopsied. - Normal mucosa in the entire examined colon. Biopsied. - Internal hemorrhoids. Recommendation: - Await pathology results. - Repeat colonoscopy in 1 year for surveillance. - Return to referring physician as previously scheduled. - Discharge patient to home. Anuja Hernadez D.O. Anuja Hernadez, 06/27/2017 10:36:28 AM This report has been signed electronically. Note Initiated On: 06/27/2017 10:16 AM I attest to the content of the Intraoperative Record and orders documented therein, exceptions below
--- NOTE | 2017-06-27 10:52 | Anesthesiology Progress Note ---
Anesthesia Post Op Note Date & Time Jun 27, 2017 at 10:51 Vital Signs Pain Intensity: 0 Vital Signs Past 12 Hours Date Time Temp Pulse Resp B/P (MAP) Pulse Ox O2 Delivery O2 Flow Rate FiO2 06/27/17 10:37 81 12 111/64 (80) 98 Room Air 06/27/17 09:53 36.4 80 18 118/78 (91) 96 Room Air Notes Mental Status: alert / awake / arousable, participated in evaluation Pt Amnestic to Procedure: Yes Nausea / Vomiting: adequately controlled Pain: adequately controlled Airway Patency, RR, SpO2: stable & adequate BP & HR: stable & adequate Hydration State: stable & adequate Anesthetic Complications: no major complications apparent
[2017-06-27 11:08] VITALS: BP 126/70; PULSE 72; O2SAT 98
== END | disposition home or self-care (01) ==
LOC: C.GI 09:31
PROVIDERS: ATTEND Internal Medicine
DX: Z12.11 Encounter for screening for malignant neoplasm of colon (principal); K64.8 Other hemorrhoids; K50.90 Crohn's disease, unspecified, without complications; M45.9 Ankylosing spondylitis of unspecified sites in spine; I10 Essential (primary) hypertension; K21.9 Gastro-esophageal reflux disease without esophagitis; G40.909 Epilepsy, unspecified, not intractable, without status epilepticus; Z87.891 Personal history of nicotine dependence

== ENCOUNTER 2017-09-06 11:23 | Inpatient (IN) | payer OTHER ==
[~2017-09-06] VITALS: Ht 167.6 cm; Wt 69.4 kg
[~2017-09-06 11:23] MED LIST changes: -LIDOCAINE HCL 2% 2 ML VIAL (20MG/ML) ONE; +MELO-84 PO; -MELO15TA4 PO; -PROPOFOL IV EMULSION 10 MG/ML 20 ML VIAL IV ONE
[2017-09-06] MEDS ORDERED: MoRPHine SULFATE 4 MG/ML 1 ML CARP\\VIAL IV STA (11:52)
[2017-09-06] MEDS ORDERED: SODIUM CHLORIDE 0.9% 1000ML 1,000 ML IV STA (11:52)
[2017-09-06] MEDS ORDERED: ONDANSETRON INJ 2 MG/ML 2 ML VIAL IV STA (11:52)
[2017-09-06 12:23] LABS: HEMATOCRIT 31.4 % (42-52); HEMOGLOBIN 11.1 g/dL (14.0-18.0); MEAN CELL VOLUME 75.3 fL (80-100); MEAN CORPUSCULAR HEMOGLOBIN 26.6 pg (25-34); MEAN CORPUSCULAR HGB CONC 35.4 g/dl (32-36); MEAN PLATELET VOLUME 10.3 fL (7.4-10.4); PLATELET COUNT 191 K/uL (130-400); RED CELL DISTRIBUTION WIDTH SD 46.7 fL (36.4-46.3); WHITE BLOOD COUNT 19.03 K/uL (4.8-10.8)
[2017-09-06 12:38] LABS: ALBUMIN 2.5 gm/dl (3.4-5.0); ALT/SGPT 17 U/L (12-78); AST/SGOT 23 U/L (15-37); BLOOD UREA NITROGEN 23 mg/dl (7-18); CALCIUM 8.4 mg/dl (8.5-10.1); CARBON DIOXIDE 21 mmol/L (21-32); CREATININE 0.97 mg/dl (0.60-1.40); GLUCOSE 105 mg/dl (70-99); LIPASE 196 U/L (73-393); POTASSIUM 2.9 mmol/L (3.5-5.1); SODIUM 129 mmol/L (136-145)
[2017-09-06 12:43] LABS: ALKALINE PHOSPHATASE 88 U/L (45-117); TOTAL PROTEIN 7.1 gm/dl (6.4-8.2)
[2017-09-06 12:49] LABS: BASO % 0.1 %; BASO ABS # 0.02 K/uL (0-0.2); IG# 0.13 K/uL (0.00-0.02); LYMPH % 3.5 %; LYMPH ABS # 0.67 K/uL (1.2-3.4); MONO % 7.6 %; MONO ABS # 1.44 K/uL (0.11-0.59); NEUT % 88.1 %; NEUT ABS # 16.77 K/uL (1.4-6.5)
[2017-09-06] MEDS ORDERED: POTASSIUM CHLR 20 MEQ / WTR 20 MEQ in PREMIXED WATER 100 ML IV STA (12:52)
--- NOTE | 2017-09-06 12:58 | EMERGENCY ROOM VISIT NOTE ---
ED Visit Note First contact with patient: 12:57 The patient was seen and examined with Jeni. I agree with the history, physical and findings. Please see the note for disposition and details.
[2017-09-06] MEDS ORDERED: METRONIDAZOLE 500MG / 100ML NSS IV STA ×2 (13:13→16:18)
[2017-09-06] MEDS ORDERED: OPTIRAY 320 IV PRN (13:15)
[2017-09-06] MEDS ORDERED: LEVAQUIN 750MG / 150ML D5W IV ONE (13:15)
--- NOTE | 2017-09-06 13:34 | DIAGNOSTIC IMAGING REPORT ---
TWO VIEW CHEST CLINICAL HISTORY: Generalized abdominal pain. FINDINGS: PA and lateral chest radiographs are compared to study dated 02/02/2017 and correlated with chest CT dated 12/20/2010. The PA view is degraded by patient rotation. The heart is top normal in size and there is atherosclerotic calcification of the thoracic aorta. The pulmonary vasculature is noncongested. Patchy airspace opacities are suggested at the right apex. There is left basilar atelectasis. No pleural effusion is identified. There is no pneumothorax. The skeletal structures are osteopenic. 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 Trace intraperitoneal free air is suggested below the right hemidiaphragm. IMPRESSION: 1. Trace intraperitoneal free air is suggested below the right hemidiaphragm. This is concerning for a perforated viscus given the reported history of abdominal pain. 2. Patchy airspace opacities are suggestive the right apex. Correlate clinically for evidence of a mild infectious/inflammatory pneumonitis. Radiographic follow-up to resolution is recommended. Electronically signed by: Herson Alvarez M.D. 09/06/2017 1:33 PM Dictated Date/Time: 09/06/2017 1:31 PM
--- NOTE | 2017-09-06 13:52 | DIAGNOSTIC IMAGING REPORT ---
ADDENDUM On further evaluation, multiple foci of free intraperitoneal gas. No specific source of perforation is identified. Again, no pneumatosis. The presumed perforation of a hollow viscus does provide and explanation for the presence of peritonitis. As additional commentary on previously noted small bowel wall thickening, the multifocal sites of small bowel wall thickening with intervening small bowel distention is nonspecific. This could be seen in the setting of infectious enteritis, small bowel injury of edema, post radiation change, portal enteropathy, [id number] disease, or Crohn's disease. These findings were discussed with physician child development assistant Gumaro Millard by Dr. Baxter on 09/06/2017 2:31 PM. Electronically signed by: Sukh Baxter M.D. 09/06/2017 2:33 PM Dictated Date/Time: 09/06/2017 2:26 PM ORIGINAL REPORT ABD/PELVIS IV CONTRAST ONLY CLINICAL HISTORY: 57 years-old Male presenting with umbilical hernia repair now abd distention, hernia repair, fever, dehydration. TECHNIQUE: Multidetector CT of the abdomen and pelvis was performed after the administration of intravenous contrast. IV contrast: 94 mL of Optiray 320. A dose lowering technique was used consistent with the principles of ALARA (as low as reasonably achievable). COMPARISON: 07/14/2014. CT DOSE (mGy.cm): The estimated cumulative dose is 785.75 mGycm. FINDINGS: Telephone Solicitor topogram: Gaseous distention of small bowel. Lung bases: Patchy groundglass opacities in the anterior segment of the right upper lobe. Normal heart size. No pericardial or pleural effusion. Liver: Nodular contour of the liver compatible with cirrhosis. No focal lesion allowing for the single phase of contrast. Patent hepatic vasculature. Biliary: No intrahepatic or extrahepatic biliary ductal dilatation. Normal gallbladder. Pancreas: Mild parenchymal atrophy. Mild prominence of the pancreatic duct without evidence of an obstructing mass. Spleen: Enlarged, measuring nearly 16 cm in maximal sagittal dimension. Adrenal glands: Normal. Kidneys and ureters: Normal. No hydronephrosis. Bladder: Normal. Pelvic organs: Prostate and seminal vesicles normal. Bowel: Wall thickening of the ascending colon, nonspecific and possibly portal colopathy. Intramural fat deposition in the terminal ileum, nonspecific. Small bowel is diffusely dilated with multifocal intervening regions of wall thickening. Bowel tapers smoothly to normal caliber in the upper abdomen. Peritoneal cavity: Diffuse mesenteric and omental infiltration, likely edema. Small abdominopelvic ascites. There may be peritoneal thickening and enhancement best evidenced in the pelvis. No pneumoperitoneum. Lymph nodes: No enlarged lymph nodes in the abdomen or pelvis. Vasculature: Extensive varices including esophageal/parasellar esophageal, mesenteric, perigastric, and right varicocele. Atherosclerosis of the normal caliber abdominal aorta. IVC patent. Abdominal wall: Fat and fluid containing umbilical hernia. Bilateral gynecomastia. Musculoskeletal: Degenerative changes of the spine. IMPRESSION: 1. Cirrhosis with portal hypertension evidenced by varices and splenomegaly. 2. Multifocal small bowel wall thickening with intervening small bowel distention. This appearance is nonspecific and can be seen in the setting of Crohn's disease, multifocal strictures in the setting of post radiation change, or potentially portal enteropathy. An infectious enteritis is considered less likely. 3. No small bowel obstruction. 4. Small volume abdominopelvic ascites with suggestion of peritonitis. 5. Groundglass opacities in the right upper lobe raises concern for infection/pneumonia. Electronically signed by: Sukh Baxter M.D. 09/06/2017 1:51 PM Dictated Date/Time: 09/06/2017 1:41 PM
[2017-09-06] MEDS ORDERED: HEPARIN SOD 5000 UNIT/0.5 ML CARP SQ SCH (14:00)
[2017-09-06] MEDS: POTASSIUM CHLR 10MEQ / WTR IV SCH ×2 (14:15→15:40)
[2017-09-06] MEDS ORDERED: HYDROCODONE/HOMATROPINE SYRUP 5MG/1.5MG 5ML UDP PO PRN (14:30)
[2017-09-06] MEDS ORDERED: POTASSIUM CHLORIDE 10 MEQ TABCR PO STA (14:30)
[2017-09-06] MEDS ORDERED: ONDANSETRON INJ 2 MG/ML 2 ML VIAL IV PRN ×2 (14:30→18:30)
[2017-09-06 15:01] LABS: INR 1.3 (0.9-1.1); PTT PATIENT 35.5 SECONDS (21.0-31.0)
[2017-09-06] MEDS ORDERED: SUCCINYLCHOLINE CHLORIDE 20 MG/ML 10 ML VIAL IV ONE (15:54)
[2017-09-06] MEDS ORDERED: PROPOFOL IV EMULSION 10 MG/ML 20 ML VIAL IV ONE (15:54)
[2017-09-06] MEDS ORDERED: ROCURONIUM BROMID 50MG/5ML SYR ONE (15:54)
[2017-09-06] MEDS ORDERED: FENTANYL CITRATE INJ 50 MCG/1 ML 2 ML VIAL ONE ×2 (15:54→17:56)
[2017-09-06] MEDS ORDERED: LIDOCAINE HCL 2% 2 ML VIAL (20MG/ML) ONE (15:54)
[2017-09-06] MEDS ORDERED: BUPIVACAINE 0.5 % 5 MG/1 ML MPF 30ML VIAL ONE (15:55)
[2017-09-06] MEDS ORDERED: MIDAZOLAM HCL 1 MG/ML 2ML VIAL ONE (15:55)
[2017-09-06] MEDS ORDERED: LIDOCAINE HCL 1% 20 ML VIAL ONE (15:55)
[2017-09-06] MEDS ORDERED: BACITRACIN OINT 15 GM TUBE ONE (15:56)
--- NOTE | 2017-09-06 16:02 | Surgery Consultation ---
Consultation Date of Consultation: Sep 06, 2017. Attending Physician: Reji Epperson MD Reason for Consultation: Free intraperitoneal air History of Present Illness Lm is a 57 year-old male who presented to emergency department with complaint of abdominal pain, nausea, vomiting, chills, fevers, and cough for the past one week. States he started having a dry cough about 9 days ago and felt he had mucous to expel so he kept coughing to produce some which caused vomiting and felt a popping sensation in his abdomen at site of previous umbilical hernia repair. He had umbilical hernia repair and right inguinal hernia repair by Dr. Brown at least 11 months ago. Denies mesh being used as he states he has a vascular disease that caused his surgery to last 7 hours instead of 1.5 hours. He states he noticed his abdomen to become distended and severe pain up to 9/10 on admission today. Has history of alcoholism but per patient he denies alcohol use but then reverts back when asked again by Dr. Watson and states he has drank for years. Now he will have occasional wine socially on special occasions. History of Crohn's disease, diagnosed 10 years ago[address] with [address] Contreras. States his last colonoscopy was a few months ago nothing concerning was found. History of esophageal varices and splenomegaly. History of intestinal bleed which required blood transfusion. Since the episode of coughing and vomiting he has had liquid bowel movements and usually has regular formed bowel movements. Currently rating his pain a 7/10 after morphine administration in the emergency room. CT scan of abdomen and pelvis showing small foci of intraperitoneal free air. Multifocal small bowel wall thickening and distention. This could be seen in the setting of infectious enteritis, small bowel injury of edema, post radiation change, portal enteropathy, [id number] disease, or Crohn's disease. There is evidence of cirrhosis with portal hypertension with varices and splenomegaly. Labs showed leukocytosis of 19.03, elevated lactic acid at 2.46, sodium low at 129 and potassium low at 2.9. Past Medical/Surgical History Medical Problems: 1. history of alcoholism 2. cirrhosis 3. portal hypertension, ascites, varices, splenomegaly 4. hypertension 5. ankylosing spondylitis 6. umbilical hernia 7. right inguinal hernia Past Surgical history: 1. umbilical hernia repair without mesh 2. Right inguinal hernia repair without mesh 2. Colonoscopy/EGD Family History Cancer Gallbladder disease Heart disease Hypertension Lung disease Social History Smoking Status: Former Smoker Drug Use: none Marital Status: single Housing Status: lives alone Occupation Status: disabled Allergies Coded Allergies: Adalimumab (Verified Allergy, Severe, RASH, 09/06/17) severe cutaneous local reaxtion Etanercept (Verified Allergy, Severe, RASH, 09/06/17) severe cutaneous local reaction SHELL FISH (Verified Allergy, Severe, ANAPHYLAXIS AND "I GET PURPLE", 09/06) Shellfish (Verified Allergy, Severe, Anaphylaxis, 09/06/17) Shellfish Allergy (Verified Allergy, Severe, Anaphyaxis, 09/06/17) Tromethamine (Verified Allergy, Severe, RASH, 09/06/17) Penicillins (Verified Allergy, Intermediate, PASSED OUT, 09/06/17) BEE STING (Verified Allergy, Unknown, PASSED OUT, 09/06/17) Benzyl Alcohol (Verified Allergy, Unknown, RASH, 09/06/17) Mouse Protein (Verified Allergy, Unknown, FACE AND MOUTH SWELL, 09/06/17) Secukinumab (Verified Allergy, Unknown, FACE AND MOUTH SWELL, 09/06/17) Sorbitan (Verified Allergy, Unknown, FACE AND MOUTH SWELL, 09/06/17) Varenicline (Verified Adverse Reaction, Unknown, VEINS IN FEET BLEW, ) Home Medications Scheduled Atenolol (Tenormin), 25 MG PO QAM Meloxicam (Mobic), 15 MG PO QAM Pantoprazole Sodium (Protonix), 40 MG PO QAM Current Inpatient Medications Current Inpatient Medications Medications (Trade) Dose Ordered Sig/Ronaldo Route Start Time Stop Time Status Last Admin Dose Admin Ioversol (Optiray 320) 100 ml UD PRN IV 09/06/17 13:15 09/10/17 13:14 Heparin Sodium (Porcine) (Heparin Sq 5000 Unit/0.5ml) 5,000 unit Q8H SQ 09/06/17 14:00 10/06/17 13:59 Ondansetron HCl (Zofran Inj) 4 mg Q6H PRN IV 09/06/17 14:30 10/06/17 14:29 Atenolol (Tenormin Tab) 25 mg QAM PO 09/07/17 09:00 10/07/17 08:59 Pantoprazole Sodium (Protonix Tab) 40 mg QAM PO 09/07/17 09:00 10/07/17 08:59 Levofloxacin 750 mg/Prmx 150 ml @ 100 mls/hr Q24H IV 09/07/17 11:00 09/13/17 10:59 Metronidazole 500 mg/Prmx 100 ml @ 100 mls/hr Q8H IV 09/06/17 22:00 09/13/17 21:59 Potassium Chloride/Sodium Chloride 1,000 ml @ 75 mls/hr [id number] IV 09/06/17 15:30 09/07/17 18:09 Hydrocodone Bit/ Homatropine Methylb (Hycodan Syrup) 5 ml Q6H PRN PO 09/06/17 14:30 09/20/17 14:29 Review of Systems Constitutional: + fever, + chills, No sweats Respiratory: + cough, No shortness of breath Cardiovascular: No chest pain Abdomen: + pain, + nausea, + vomiting, No GI bleeding Hematologic / Lymphatic: No abnormal bleeding/bruising Integumentary: No rash Physical Exam Date Time Temp Pulse Resp B/P (MAP) Pulse Ox O2 Delivery O2 Flow Rate FiO2 09/06/17 14:57 92 16 103/66 98 Room Air 09/06/17 14:15 95 16 107/67 97 Room Air 09/06/17 12:35 98 09/06/17 12:25 96 16 110/68 96 Room Air 09/06/17 11:26 37.4 114 18 122/68 96 Room Air General Appearance: WD/WN, no apparent distress Head: normocephalic, atraumatic Eyes: sclerae normal ENT: hearing grossly normal Neck: trachea midline Respiratory/Chest: lungs clear, normal breath sounds, no respiratory distress, no accessory muscle use Cardiovascular: regular rate, rhythm, no murmur Abdomen/GI: soft, no organomegaly, no pulsatile mass, + tenderness, + distended , + guarding (at midline on deep palpation), + hernia (umbilical hernia), + pertinent finding (ascites present) Extremities/Musculoskelatal: no pedal edema Neurologic/Psych: alert, normal mood/affect, oriented x 3 Skin: normal color, warm/dry, no rash Laboratory Results Last 24 Hours Test 09/06/17 12:10 09/06/17 12:20 White Blood Count 19.03 K/uL Red Blood Count 4.17 M/uL Hemoglobin 11.1 g/dL Hematocrit 31.4 % Mean Corpuscular Volume 75.3 fL Mean Corpuscular Hemoglobin 26.6 pg Mean Corpuscular Hemoglobin Concent 35.4 g/dl Platelet Count 191 K/uL Mean Platelet Volume 10.3 fL Neutrophils (%) (Auto) 88.1 % Lymphocytes (%) (Auto) 3.5 % Monocytes (%) (Auto) 7.6 % Eosinophils (%) (Auto) 0.0 % Basophils (%) (Auto) 0.1 % Neutrophils # (Auto) 16.77 K/uL Lymphocytes # (Auto) 0.67 K/uL Monocytes # (Auto) 1.44 K/uL Eosinophils # (Auto) 0.00 K/uL Basophils # (Auto) 0.02 K/uL RDW Standard Deviation 46.7 fL RDW Coefficient of Variation 17.0 % Immature Granulocyte % (Auto) 0.7 % Immature Granulocyte # (Auto) 0.13 K/uL Dohle Bodies 1+ Echinocytes 1+ Prothrombin Time 13.8 SECONDS Prothromb Time International Ratio 1.3 Activated Partial Thromboplast Time 35.5 SECONDS Partial Thromboplastin Ratio 1.4 Sodium Level 129 mmol/L Potassium Level 2.9 mmol/L Chloride Level 99 mmol/L Carbon Dioxide Level 21 mmol/L Anion Gap 9.0 mmol/L Blood Urea Nitrogen 23 mg/dl Creatinine 0.97 mg/dl Est Creatinine Clear Calc Drug Dose 79.0 ml/min Estimated GFR () 101.4 Estimated GFR (Non- 87.5 BUN/Creatinine Ratio 24.0 Random Glucose 105 mg/dl Calcium Level 8.4 mg/dl Total Bilirubin 2.6 mg/dl Direct Bilirubin 1.2 mg/dl Aspartate Amino Transf (AST/SGOT) 23 U/L Alanine Aminotransferase (ALT/SGPT) 17 U/L Alkaline Phosphatase 88 U/L Troponin I < 0.015 ng/ml Total Protein 7.1 gm/dl Albumin 2.5 gm/dl Lipase 196 U/L Bedside Lactic Acid Venous 2.46 mmol/L ADDENDUM On further evaluation, multiple foci of free intraperitoneal gas. No specific source of perforation is identified. Again, no pneumatosis. The presumed perforation of a hollow viscus does provide and explanation for the presence of peritonitis. As additional commentary on previously noted small bowel wall thickening, the multifocal sites of small bowel wall thickening with intervening small bowel distention is nonspecific. This could be seen in the setting of infectious enteritis, small bowel injury of edema, post radiation change, portal enteropathy, [id number] disease, or Crohn's disease. These findings were discussed with physician personal care assistant Gumaro Millard by Dr. Baxter on 09/06/2017 2:31 PM. Electronically signed by: Sukh Baxter M.D. 09/06/2017 2:33 PM Dictated Date/Time: 09/06/2017 2:26 PM ORIGINAL REPORT ABD/PELVIS IV CONTRAST ONLY CLINICAL HISTORY: 57 years-old Male presenting with umbilical hernia repair now abd distention, hernia repair, fever, dehydration. TECHNIQUE: Multidetector CT of the abdomen and pelvis was performed after the administration of intravenous contrast. IV contrast: 94 mL of Optiray 320. A dose lowering technique was used consistent with the principles of ALARA (as low as reasonably achievable). COMPARISON: 07/14/2014. CT DOSE (mGy.cm): The estimated cumulative dose is 785.75 mGycm. FINDINGS: Rhinestone Setter topogram: Gaseous distention of small bowel. Lung bases: Patchy groundglass opacities in the anterior segment of the right upper lobe. Normal heart size. No pericardial or pleural effusion. Liver: Nodular contour of the liver compatible with cirrhosis. No focal lesion allowing for the single phase of contrast. Patent hepatic vasculature. Biliary: No intrahepatic or extrahepatic biliary ductal dilatation. Normal gallbladder. Pancreas: Mild parenchymal atrophy. Mild prominence of the pancreatic duct without evidence of an obstructing mass. Spleen: Enlarged, measuring nearly 16 cm in maximal sagittal dimension. Adrenal glands: Normal. Kidneys and ureters: Normal. No hydronephrosis. Bladder: Normal. Pelvic organs: Prostate and seminal vesicles normal. Bowel: Wall thickening of the ascending colon, nonspecific and possibly portal colopathy. Intramural fat deposition in the terminal ileum, nonspecific. Small bowel is diffusely dilated with multifocal intervening regions of wall thickening. Bowel tapers smoothly to normal caliber in the upper abdomen. Peritoneal cavity: Diffuse mesenteric and omental infiltration, likely edema. Small abdominopelvic ascites. There may be peritoneal thickening and enhancement best evidenced in the pelvis. No pneumoperitoneum. Lymph nodes: No enlarged lymph nodes in the abdomen or pelvis. Vasculature: Extensive varices including esophageal/parasellar esophageal, mesenteric, perigastric, and right varicocele. Atherosclerosis of the normal caliber abdominal aorta. IVC patent. Abdominal wall: Fat and fluid containing umbilical hernia. Bilateral gynecomastia. Musculoskeletal: Degenerative changes of the spine. IMPRESSION: 1. Cirrhosis with portal hypertension evidenced by varices and splenomegaly. 2. Multifocal small bowel wall thickening with intervening small bowel distention. This appearance is nonspecific and can be seen in the setting of Crohn's disease, multifocal strictures in the setting of post radiation change, or potentially portal enteropathy. An infectious enteritis is considered less likely. 3. No small bowel obstruction. 4. Small volume abdominopelvic ascites with suggestion of peritonitis. 5. Groundglass opacities in the right upper lobe raises concern for infection/pneumonia. Assessment & Plan 57 year-old male with history of alcoholism, cirrhosis, portal hypertension, varices, ascites who presented to emergency room with complaint of abdominal pain, nausea, vomiting in presence of upper respiratory infection and dry cough. CT scan showing evidence of free intraperitoneal air concerning for perforated viscous. History of umbilical hernia repair without mesh, umbilical hernia present on examination, possible small bowel obstruction due to incarcerated hernia and ischemia with bowel perforation. Plan: Plan to take patient back to operating room for exploratory laparotomy, possible bowel resection, possible ostomy, possible hernia repair. Informed patient of procedure and risks including bleeding, infection, injury to surrounding organs/tissues, blood clots, recurrence of hernia, cardiopulmonary complications, including . Patient understood and informed consent obtained. Dr. Watson present and discussed procedure and risks with patient. Complete IV potassium as ordered NPO Dr. Watson has seen and examined patient, agrees with above.
--- NOTE | 2017-09-06 16:16 | History and Physical ---
History & Physical Date & Time of Service: Sep 06, 2017 at 15:50 Chief Complaint: Pneumonia abdominal pain and fever Primary Care Physician: Mary Díaz M.D. History of Present Illness Source: patient He is a 57-year-old male with significant past medical history of cirrhosis of liver and Crohn's disease apparently has been complaining of URI symptoms 9 days back. The first 2 days of the symptoms he was having fever and occasional chills. Subsequently he started to have cough with pain involving the lower chest wall pain on either side. For the last few days he has been having pain in the abdomen associated with vomiting and he fails that he has torn his mesh in the hernia repair site. He has been running a temperature up to 10 3F at home. He denies to have any chest pain any palpitation or any shortness of breath. He was afebrile in the ER with a chest x-ray finding of right upper lobe infiltration and a CAT scan of the abdomen and pelvis did show possible small intraperitoneal abscess. Surgical service saw him in the emergency room and will take him to OR this afternoon. The patient was admitted on the medical service. Past Medical/Surgical History Medical Problems: (1) Ac Myocard Infarct,Oth Specif Sites,Episode Unspec (2) Alcoh Dep Nec/Nos-Contin (3) Alcohol intoxication (4) Ankylosing spondylitis (5) Anxiety State Nos (6) Ascites (7) Atrial Fibrillation (8) Benign hypertension (9) Benign Hypertension (10) Cirrhosis (11) Cirrhosis of liver (12) Cirrhosis Of Liver Nos (13) Constipation (14) Crohn's disease (15) Esoph Varice Oth Dis Nos (16) Esophagitis Nos (17) Facial abrasion (18) Fall (19) Hypertension Nos (20) Ileus (21) Liver disease, chronic, due to alcohol (22) Low back pain (23) Lower extremity edema (24) Pancreatitis (25) Pneumonia (26) Portal Hypertension (27) Psychosis Nos (28) Right shoulder pain (29) Scalp contusion Surgical Problems: (1) No significant past surgical history Family History Cancer Gallbladder disease Heart disease Hypertension Lung disease Social History Smoking Status: Former Smoker Smokeless Tobacco Use: No Drug Use: none Marital Status: single Housing status: lives with family Occupational Status: disabled Immunizations History of Influenza Vaccine: Yes History of Tetanus Vaccine?: Unknown Tetanus Immunization Date: Jan 23, 2012 History of Pneumococcal: No Pneumococcal Date: Jan 23, 2012 History of Hepatitis B Vaccine: Unknown Allergies Coded Allergies: Adalimumab (Verified Allergy, Severe, RASH, 09/06/17) severe cutaneous local reaxtion Etanercept (Verified Allergy, Severe, RASH, 09/06/17) severe cutaneous local reaction SHELL FISH (Verified Allergy, Severe, ANAPHYLAXIS AND "I GET PURPLE", 09/06) Shellfish (Verified Allergy, Severe, Anaphylaxis, 09/06/17) Shellfish Allergy (Verified Allergy, Severe, Anaphyaxis, 09/06/17) Tromethamine (Verified Allergy, Severe, RASH, 09/06/17) Penicillins (Verified Allergy, Intermediate, PASSED OUT, 09/06/17) BEE STING (Verified Allergy, Unknown, PASSED OUT, 09/06/17) Benzyl Alcohol (Verified Allergy, Unknown, RASH, 09/06/17) Mouse Protein (Verified Allergy, Unknown, FACE AND MOUTH SWELL, 09/06/17) Secukinumab (Verified Allergy, Unknown, FACE AND MOUTH SWELL, 09/06/17) Sorbitan (Verified Allergy, Unknown, FACE AND MOUTH SWELL, 09/06/17) Varenicline (Verified Adverse Reaction, Unknown, VEINS IN FEET BLEW, ) Home Medications Scheduled Atenolol (Tenormin), 25 MG PO QAM Meloxicam (Mobic), 15 MG PO QAM Pantoprazole Sodium (Protonix), 40 MG PO QAM Review of Systems Constitutional: + fever, + chills Respiratory: + cough, + sputum, + wheezing Abdomen: + pain, + nausea, + vomiting Physical Exam Vital Signs Date Time Temp Pulse Resp B/P (MAP) Pulse Ox O2 Delivery O2 Flow Rate FiO2 09/06/17 14:57 92 16 103/66 98 Room Air 09/06/17 14:15 95 16 107/67 97 Room Air 09/06/17 12:35 98 09/06/17 12:25 96 16 110/68 96 Room Air 09/06/17 11:26 37.4 114 18 122/68 96 Room Air General Appearance: + mild distress Head: normocephalic Eyes: normal inspection ENT: normal ENT inspection Neck: supple Respiratory/Chest: + respiratory distress, + wheezing (Right Upper Lung) Cardiovascular: regular rate, rhythm Abdomen/GI: soft, + tenderness, + hernia (Umbilical with a gape underneath) Genitourinary - Male: normal male genitalia Back: normal inspection Extremities/Musculoskelatal: normal inspection Neurologic/Psych: no motor/sensory deficits, alert, normal mood/affect, oriented x 3 Skin: normal color Diagnostics Laboratory Results Results Past 24 Hours Test 09/06/17 12:10 09/06/17 12:20 Range/Units White Blood Count 19.03 4.8-10.8 K/uL Red Blood Count 4.17 4.7-6.1 M/uL Hemoglobin 11.1 14.0-18.0 g/dL Hematocrit 31.4 42-52 % Mean Corpuscular Volume 75.3 80-100 fL Mean Corpuscular Hemoglobin 26.6 25-34 pg Mean Corpuscular Hemoglobin Concent 35.4 32-36 g/dl Platelet Count 191 130-400 K/uL Mean Platelet Volume 10.3 7.4-10.4 fL Neutrophils (%) (Auto) 88.1 % Lymphocytes (%) (Auto) 3.5 % Monocytes (%) (Auto) 7.6 % Eosinophils (%) (Auto) 0.0 % Basophils (%) (Auto) 0.1 % Neutrophils # (Auto) 16.77 1.4-6.5 K/uL Lymphocytes # (Auto) 0.67 1.2-3.4 K/uL Monocytes # (Auto) 1.44 0.11-0.59 K/uL Eosinophils # (Auto) 0.00 0-0.5 K/uL Basophils # (Auto) 0.02 0-0.2 K/uL RDW Standard Deviation 46.7 36.4-46.3 fL RDW Coefficient of Variation 17.0 11.5-14.5 % Immature Granulocyte % (Auto) 0.7 % Immature Granulocyte # (Auto) 0.13 0.00-0.02 K/uL Dohle Bodies 1+ Echinocytes 1+ Prothrombin Time 13.8 9.0-12.0 SECONDS Prothromb Time International Ratio 1.3 0.9-1.1 Activated Partial Thromboplast Time 35.5 21.0-31.0 SECONDS Partial Thromboplastin Ratio 1.4 Sodium Level 129 136-145 mmol/L Potassium Level 2.9 3.5-5.1 mmol/L Chloride Level 99 98-107 mmol/L Carbon Dioxide Level 21 21-32 mmol/L Anion Gap 9.0 3-11 mmol/L Blood Urea Nitrogen 23 7-18 mg/dl Creatinine 0.97 0.60-1.40 mg/dl Est Creatinine Clear Calc Drug Dose 79.0 ml/min Estimated GFR () 101.4 Estimated GFR (Non- 87.5 BUN/Creatinine Ratio 24.0 10-20 Random Glucose 105 70-99 mg/dl Calcium Level 8.4 8.5-10.1 mg/dl Total Bilirubin 2.6 0.2-1 mg/dl Direct Bilirubin 1.2 0-0.2 mg/dl Aspartate Amino Transf (AST/SGOT) 23 15-37 U/L Alanine Aminotransferase (ALT/SGPT) 17 12-78 U/L Alkaline Phosphatase 88 45-117 U/L Troponin I < 0.015 0-0.045 ng/ml Total Protein 7.1 6.4-8.2 gm/dl Albumin 2.5 3.4-5.0 gm/dl Lipase 196 73-393 U/L Bedside Lactic Acid Venous 2.46 0.90-1.70 mmol/L Microbiology Results 09/06/17 Blood Culture, Received Pending 09/06/17 Blood Culture, Received Pending Diagnostic Radiology CT Abdomen- multiple foci of free intraperitoneal gas. No specific source of perforation is identified.Intestinal wall thickening consistent with Crohn disease CXR normal (Right Upper Lobe infiltrative change) EKG EKG:SR ,98/min,LAD with minor nonspecific ST-T changes, Impression Assessment and Plan Right apical infiltration: The patient will be admitted to medical floor. He was started with intravenous Levaquin and Flagyl to cover intra-abdominal pathology as well. Blood culture has been taken There is no cavitary lesion and doubt any tuberculosis. Free air in abdomen with peritonitis: Was evaluated by surgery in the emergency room and the patient will be going to operating room this afternoon Most likely he has torn mesh at his hernia site Clinically has redness and some pain locally at the umbilical hernia area. Appreciate surgery input. Cirrhosis of liver. Not having any acute symptoms. Has esophageal varices without bleeding and Portal Hypertension We will continue atenolol and PPI. Crohn's disease: No acute symptoms The CAT scan findings are suggestive of minor enteritis, The patient will have Levaquin and Flagyl for suspected peritonitis and pneumonia Ankylosing Spondylitis No acute symptoms GERD without esophagitis Continue PPI. DVT prophylaxis with subcu heparin CODE STATUS-he will be a full code In my clinical assessment the beneficiary meets criteria for 2 midnight stay in the hospital. Resuscitation Status VTE Prophylaxis Will order VTE Prophylaxis: Yes
[2017-09-06] MEDS ORDERED: CIPROFLOXACIN 400MG / 200ML D5W IV STA (16:17)
[2017-09-06 16:29] VITALS: BP 100/64; TEMP 36.9; O2SAT 97; Ht 167.6 cm; Wt 69.4 kg
[2017-09-06 16:36] LABS: ISTAT CREATININE 0.7 mg/dl (0.6-1.3); ISTAT IONIZED CALCIUM 1.05 mmol/l (1.12-1.32); ISTAT POTASSIUM 5.6 mEq/L (3.3-5.0)
[2017-09-06] MEDS ORDERED: ALBUMIN HUMAN 5% 12.5 GM/250 ML VIAL IV ONE (16:53)
[2017-09-06] MEDS ORDERED: VANCOMYCIN HCL 1000MG/20ML VIAL ONE (17:43)
[2017-09-06] MEDS ORDERED: GLYCOPYRROLATE INJ 0.2 MG/ML VIAL ONE (17:53)
[2017-09-06] MEDS ORDERED: ONDANSETRON INJ 2 MG/ML 2 ML VIAL ONE (17:53)
[2017-09-06] MEDS ORDERED: NEOSTIGMINE METHYLSULFATE 5 MG/5 ML SYR ONE (17:53)
--- NOTE | 2017-09-06 18:23 | [facility] Post Operative Brief Note ---
Immediate Operative Summary Operative Date Sep 06, 2017. Pre-Operative Diagnosis Free air in abdomen with peritonitis Post-Operative Diagnosis peritonitis, infected umbilical hernia sac, recurrent umbilical hernia Procedure(s) Performed exploratory laparotomy, repair umbilical hernia, resection umbilical hernia sac Surgeon Dr. Marjan Watson Control Electrician Surgeon(s) surgical aide Estimated Blood Loss 15ml Findings See Below (peritonitis, pus, infected recurrent umbilical hernia, inflamatin on near distal ileum, 2 small structure about 30cm from terminal ileum, naer 50 % structure, no bowel obstruction,) peritonitis, pus, infected recurrent umbilical hernia, inflamatin on near d Fluids (cc crystalloids) 1500ml Specimens umbilical hernia sac, peritoneal fluid culture Drains CHANDRA X2 Anesthesia Type General Complication(s) none Disposition Accompanied Pt To Recover: yes Disposition: Surgical ICU
[2017-09-06] MEDS ORDERED: EpHEDrine SULFATE INJ 50 MG/ML AMP IV PRN (18:30)
[2017-09-06] MEDS ORDERED: FLUMAZENIL 0.1 MG/1 ML 10 ML VIAL IV PRN (18:30)
[2017-09-06] MEDS ORDERED: ATROPINE SULFATE 0.1 MG/ML 5ML SYR IV PRN (18:30)
[2017-09-06] MEDS ORDERED: NALOXONE HCL 0.4 MG/1 ML VIAL/CARP IV PRN (18:30)
[2017-09-06] MEDS ORDERED: PROMETHAZINE HCL INJ 12.5 MG in SODIUM CHLORIDE 0.9% 50ML 50 ML IV PRN (18:30)
[2017-09-06 18:52] LABS: HEMATOCRIT 28.4 % (42-52); HEMOGLOBIN 9.8 g/dL (14.0-18.0)
[2017-09-06] MEDS: HYDROmorphone INJ 0.5 MG/0.5 ML SYR IV PRN ×3 (18:52→20:15)
[2017-09-06] MEDS ORDERED: MoRPHine SULFATE 2 MG/ML CARP IM PRN (19:00)
[2017-09-06 19:11] LABS: CALCIUM 7.5 mg/dl (8.5-10.1); CREATININE 0.82 mg/dl (0.60-1.40)
[2017-09-06 19:12] LABS: POTASSIUM 3.5 mmol/L (3.5-5.1)
--- NOTE | 2017-09-06 19:13 | Anesthesiology Progress Note ---
Anesthesia Post Op Note Date & Time Sep 06, 2017 at 19:13 Vital Signs Pain Intensity: 5 Vital Signs Past 12 Hours Date Time Temp Pulse Resp B/P (MAP) Pulse Ox O2 Delivery O2 Flow Rate FiO2 09/06/17 19:05 36.6 94 16 123/73 96 Nasal Cannula 3 09/06/17 18:55 90 16 120/80 98 Nasal Cannula 3 09/06/17 18:45 84 17 124/79 99 Oxymask 3 09/06/17 18:35 96 14 127/92 100 Oxymask 5 09/06/17 18:26 36.2 100 18 134/88 100 Oxymask 5 09/06/17 16:29 36.9 16 100/64 97 Room Air 09/06/17 16:14 36.9 93 16 100/64 (76) 96 Room Air 09/06/17 14:57 92 16 103/66 98 Room Air 09/06/17 14:15 95 16 107/67 97 Room Air 09/06/17 12:35 98 09/06/17 12:25 96 16 110/68 96 Room Air 09/06/17 11:26 37.4 114 18 122/68 96 Room Air Notes Mental Status: alert / awake / arousable, participated in evaluation Pt Amnestic to Procedure: Yes Nausea / Vomiting: adequately controlled Pain: adequately controlled Airway Patency, RR, SpO2: stable & adequate BP & HR: stable & adequate Hydration State: stable & adequate Anesthetic Complications: no major complications apparent
[2017-09-06 19:40] VITALS: BP 104/69; PULSE 99; TEMP 36.9; O2SAT 93; O2SAT 94
[2017-09-06 20:06] VITALS: BP 101/67; PULSE 96; TEMP 37; O2SAT 95
[2017-09-06 20:46] VITALS: BP 113/71; PULSE 100; TEMP 36.6; O2SAT 95
--- NOTE | 2017-09-06 21:08 | EMERGENCY ROOM VISIT NOTE ---
ED Visit Note First contact with patient: 11:40 Chief Complaint: Fever, cough and abdominal pain. History of Present Illness: Mr. Armenta is a 57-year-old white male who ambulates into the ED complaining of fever, cough and vomiting. Patient reports his symptoms started 9 days ago and have been constant. His symptoms started with a continuous cough and fever. He has not identified any aggravating or alleviating factors related to the symptoms. He has not taken any medications for these symptoms because of nausea and vomiting related to his abdominal pain. Associated with his shortness of breath he does report intermittently he hears himself wheezing and he has exertional dyspnea. Additionally he reports he has associated production sputum of what he describes as white and foamy. He reports his fevers have been ranging from 101- 102 Fahrenheit. Additionally patient reports 5 days ago he was having a violent episode of coughing and felt a popping sensation in the area of his umbilical hernia repair from 11 months ago. He reports this immediately caused abdominal pain and nausea and vomiting. And over the last 5 days he has been noted increasing distention of his abdomen and the area around his hernia site. He describes his pain as a pressure and sharp sensation. He rates his discomfort 9/10. The pain is nonradiating. The pain worsens when he has any nausea vomiting. He has not identified any alleviating factors related to the pain. Because of his nausea vomiting he reports she has been unable to take any medications for pain. Associated with his abdominal pain he does report he has had a few episodes of watery stools and a decreased appetite. He denies skin eruptions, skin color changes, lightheadedness, dizziness, other upper respiratory tract symptoms, hemoptysis, palpitations, chest pain, previous clots, claudication, cramping, recent surgery/inactivity/extended travel hematemesis, hematochezia, melena, back/flank pain. Review of Systems: As noted above in history of present illness. All body systems were reviewed and found to be negative as noted above. Past Medical History: Ankylosing spondylitis, myocardial infarction, atrial fibrillation, alcoholism, cirrhosis of the liver, Crohn's disease, esophageal varices, esophagitis, pneumonia, portal hypotension, psychosis, anxiety and status post umbilical hernia repair Current Medications: Medications Dose Route/Sig Max Daily Dose Days Date Category Dose Instructions Tenormin (Atenolol) 25 Mg Tab 25 Mg PO QAM 06/23/17 Reported Mobic (Meloxicam) 15 Mg Tab 15 Mg PO QAM 05/26/13 Reported Protonix (Pantoprazole Sodium) 40 Mg Tab 40 Mg PO QAM 08/27/12 Reported TAKE THIS MEDICATION 30 MINUTES BEFORE FIRST MEAL OF THE DAY. Allergies to Medications: Adalimumab, benzyl alcohol, etanercept, penicillin, sorbitan, tromethamine, varenicline, secukinumab. Social History: Patient is not employed, he is on disability; he feels safe in his home environment; he denies current tobacco use. Physical Examination: Vital Signs: Date Time Temp Pulse Resp B/P (MAP) Pulse Ox O2 Delivery O2 Flow Rate FiO2 09/06/17 14:15 95 16 107/67 97 Room Air 09/06/17 12:35 98 09/06/17 12:25 96 16 110/68 96 Room Air 09/06/17 11:26 37.4 114 18 122/68 96 Room Air GENERAL: 57-year-old male in mild to moderate distress due to symptoms, chronically ill-appearing, febrile, tachycardic but not hypotensive. NEUROLOGICAL: Awake, alert and oriented to person, place and time. Answering questions appropriately and following commands. Good hand eye coordination. Cranial nerves II through XII grossly intact. Good short-term and long-term recall SKIN: Warm, dry and pink. No soft tissue eruptions or trauma noted. HEENT: Atraumatic and normocephalic. No erythema or edema over the frontal or maxillary sinuses. External ear nontender. Auditory canals are pink and patent. Tympanic membranes are not erythematous or edematous. PERRLA. EOMI without nystagmus. Sclera white and conjunctiva pink. No drainage from naris but audible congestion. Oral cavity moist and pink. Airway is patent. Speech is normal and clear. Pharynx is nonerythematous or edematous. Speech normal. No lymphadenopathy. Trachea midline. No jugular venous distention. BACK: No tenderness over the bony spine. No CVA tenderness. THORAX: Lungs sounds are clear to auscultation and equal bilaterally with symmetrical chest wall. No wheezing, rales or rhonchi. No increased respiratory effort or rate. No crepitus, tenderness, subcutaneous air or deformities noted. HEART: Tachycardic rate and rhythm. No gallops, rubs or murmurs are appreciated. PMI was not displaced. No lifts, heaves or thrills. ABDOMEN: Flat distended with further extension at his umbilical hernia site. The hernia site is slightly discovered and moderately tender to palpation. No rigidity. Mild tenderness throughout the abdomen. The area immediately and just laterally to the hernia site shows a muscle defect. Decreased bowel sounds throughout the abdomen. No guarding, rigidity or organomegaly. EXTREMITIES: Moves all extremities well on command and with purpose. All distal neurovascular statuses are intact and equal bilaterally. No calf tenderness or cords. ED Course: Patient is assessed as noted above. Patient's medication list was reviewed. An IV lock was initiated and he was hydrated with normal saline and received 4 mg of Zofran IV for nausea/vomiting, 4 mg of morphine IV for pain, 10 mEq of potassium IV and 500 mg of Flagyl IV and 750 mg of Levaquin IV for antibiotic coverage. Laboratory Testing: Test 09/06/17 12:10 09/06/17 12:20 Range/Units White Blood Count 19.03 4.8-10.8 K/uL Red Blood Count 4.17 4.7-6.1 M/uL Hemoglobin 11.1 14.0-18.0 g/dL Hematocrit 31.4 42-52 % Mean Corpuscular Volume 75.3 80-100 fL Mean Corpuscular Hemoglobin 26.6 25-34 pg Mean Corpuscular Hemoglobin Concent 35.4 32-36 g/dl Platelet Count 191 130-400 K/uL Mean Platelet Volume 10.3 7.4-10.4 fL Neutrophils (%) (Auto) 88.1 % Lymphocytes (%) (Auto) 3.5 % Monocytes (%) (Auto) 7.6 % Eosinophils (%) (Auto) 0.0 % Basophils (%) (Auto) 0.1 % Neutrophils # (Auto) 16.77 1.4-6.5 K/uL Lymphocytes # (Auto) 0.67 1.2-3.4 K/uL Monocytes # (Auto) 1.44 0.11-0.59 K/uL Eosinophils # (Auto) 0.00 0-0.5 K/uL Basophils # (Auto) 0.02 0-0.2 K/uL RDW Standard Deviation 46.7 36.4-46.3 fL RDW Coefficient of Variation 17.0 11.5-14.5 % Immature Granulocyte % (Auto) 0.7 % Immature Granulocyte # (Auto) 0.13 0.00-0.02 K/uL Dohle Bodies 1+ Echinocytes 1+ Prothrombin Time 13.8 9.0-12.0 SECONDS Prothromb Time International Ratio 1.3 0.9-1.1 Activated Partial Thromboplast Time 35.5 21.0-31.0 SECONDS Partial Thromboplastin Ratio 1.4 Sodium Level 129 136-145 mmol/L Potassium Level 2.9 3.5-5.1 mmol/L Chloride Level 99 98-107 mmol/L Carbon Dioxide Level 21 21-32 mmol/L Anion Gap 9.0 3-11 mmol/L Blood Urea Nitrogen 23 7-18 mg/dl Creatinine 0.97 0.60-1.40 mg/dl Est Creatinine Clear Calc Drug Dose 79.0 ml/min Estimated GFR () 101.4 Estimated GFR (Non- 87.5 BUN/Creatinine Ratio 24.0 10-20 Random Glucose 105 70-99 mg/dl Calcium Level 8.4 8.5-10.1 mg/dl Total Bilirubin 2.6 0.2-1 mg/dl Direct Bilirubin 1.2 0-0.2 mg/dl Aspartate Amino Transf (AST/SGOT) 23 15-37 U/L Alanine Aminotransferase (ALT/SGPT) 17 12-78 U/L Alkaline Phosphatase 88 45-117 U/L Troponin I < 0.015 0-0.045 ng/ml Total Protein 7.1 6.4-8.2 gm/dl Albumin 2.5 3.4-5.0 gm/dl Lipase 196 73-393 U/L Bedside Lactic Acid Venous 2.46 0.90-1.70 mmol/L Blood Culture, Pending EKG: Was read by myself and reviewed with Dr. Sandoval; shows normal sinus rhythm with a ventricular rate of 98 bpm left axial deviation with no ischemic changes. Chest X-Rays: Were read by myself and the radiologist showing trace intraperitoneal free air below the right hemidiaphragm concerning with perforated viscus and a patchy airspace opacity in the right apex suggestive of mild infection/inflammatory pneumonitis. IV Contrast Abdominal/Pelvic CT: Was reviewed by myself and read by the radiologist and shows liver cirrhosis with portal hypertension evidence by varices and splenomegaly, multifocal small bowel wall thickening with intervening small bowel distention of nonspecific cause, no small bowel obstruction, small volume abdominal pelvic ascites suggestive of peritonitis and groundglass opacities of the right upper lobe concerning for infection/ pneumonia. Patient was reassessed multiple times during his stay in the emergency department. Patient's case was reviewed with Dr. Sandoval; he independently assessed the patient we agreed on diagnostic approach, treatment, disposition and plan. Patient's case was consulted with case management and [facility]. Additionally patient's case was consulted with [facility]. [facility] cardiology. His EKG was read and compared by a local driver that was not noted on his EKG and reported that it appeared the patient was having a septal infarct. As noted previously I did not see any significant EKG changes and needed to my attending we asked him to review this EKG and he felt this was most likely poor lead placement. Patient's abdominal CT was reviewed with Dr. Baxter, radiologist; he over read his previous report of his abdominal/pelvic CT and now felt there was multiple focal free intraperitoneal gas throughout the abdomen of questionable etiology. Patient's case was [facility] Decker, [facility], to review the patient's updated abdominal/pelvic CT; he recommended that I contact surgery for surgical evaluation. Patient's case was [facility]an Serr[facility]; for surgical evaluation of the patient. Patient was educated about today's findings. Clinical Impression: Right upper lower lobe consolidation. Sepsis. Abdominal free air with small bowel distention. Hypokalemia. Decision-Making: Initially my differential diagnosis I considered pneumonia, pneumothorax, pulmonary embolism, acute myocardial infarction, pneumomediastinum , pneumo peritonitis, bowel obstruction, strangulated hernia and other causes. Disposition and Plan: [facility]; please see their notes and orders for final disposition and plan. I have personally spent greater than 30 minutes of critical care time in the direct management of this patient. This includes bedside care, interpretation of diagnostic studies, and testing, discussion with consultants, patient, and family members, and other required patient management activities. This 30 minutes is in excess of all separately billable procedures.
[2017-09-06] MEDS: NSS + 20MEQ KCL 1000ML 1,000 ML IV SCH (21:18)
[2017-09-06 21:41] VITALS: BP 91/56; PULSE 90; TEMP 36.7; O2SAT 96
[2017-09-06] MEDS: METRONIDAZOLE / NSS 500 MG in PREMIXED NSS 100 ML IV SCH (21:55)
[2017-09-06 22:40] VITALS: BP 105/66; PULSE 90; TEMP 36.6; O2SAT 96
[2017-09-07] MEDS: HYDROmorphone INJ 0.5 MG/0.5 ML SYR IV PRN ×4 (01:58→18:37)
[2017-09-07 03:25] VITALS: BP 111/73; PULSE 83; TEMP 36.5; O2SAT 98
[2017-09-07] MEDS: METRONIDAZOLE / NSS 500 MG in PREMIXED NSS 100 ML IV SCH (05:48)
[2017-09-07 06:19] VITALS: O2SAT 91
[2017-09-07 07:30] VITALS: BP 109/70; PULSE 92; TEMP 36.6; O2SAT 95
[2017-09-07 07:50] LABS: BASO % 0.3 %; BASO ABS # 0.03 K/uL (0-0.2); EOS % 0.5 %; EOS ABS # 0.06 K/uL (0-0.5); HEMOGLOBIN 10.5 g/dL (14.0-18.0); IG# 0.06 K/uL (0.00-0.02); LYMPH % 7.3 %; LYMPH ABS # 0.87 K/uL (1.2-3.4); MEAN CELL VOLUME 78.5 fL (80-100); MEAN CORPUSCULAR HEMOGLOBIN 26.6 pg (25-34); MEAN CORPUSCULAR HGB CONC 33.9 g/dl (32-36); MEAN PLATELET VOLUME 10.1 fL (7.4-10.4); MONO ABS # 0.95 K/uL (0.11-0.59); NEUT % 83.4 %; NEUT ABS # 9.95 K/uL (1.4-6.5); PLATELET COUNT 191 K/uL (130-400); RED CELL DISTRIBUTION WIDTH CV 17.6 % (11.5-14.5); RED CELL DISTRIBUTION WIDTH SD 50.4 fL (36.4-46.3); WHITE BLOOD COUNT 11.92 K/uL (4.8-10.8)
--- NOTE | 2017-09-07 07:59 | OPERATIVE REPORT ---
DATE OF OPERATION: 09/06/2017 PREOPERATIVE DIAGNOSIS: Free air, peritonitis, incarcerated recurrence of umbilical hernia. POSTOPERATIVE DIAGNOSIS: Peritonitis, recurrence of umbilical hernia, infected umbilical hernia sac. PROCEDURE: Exploratory laparotomy, repair of umbilical hernia, resection of umbilical hernia sac. SURGEON: Cuong Watson MD ANESTHESIA: General. ESTIMATED BLOOD LOSS: About 15 mL IV FLUIDS: 1500 mL FINDINGS: Peritonitis, pus, infected recurrence of umbilical hernia sac, severe ascites, cirrhosis, inflammation of small bowel near the ileum , the length of inflammation is about 6 cm, and 2 small bowel strictures about 30 cm from ileum, the structure is nears 50%; but no bowel obstruction; all lumen patent, 2 CHANDRA drainage through peroneal flow, pus sent to wound culture. COMPLICATIONS: None. INDICATIONS FOR THE PROCEDURE: This is a 57-year-old gentleman who presented to the ED with acute abdominal pain and patient had a CT scan diagnosis of free air, peritonitis, inflammation on the small bowel, possible bowel perforation. Once we evaluated the patient in the ER, we decided to take the patient to the OR to do exploratory laparotomy, possible bowel resection, possible stoma. I did talk to the patient about the benefit, risk, and alternate procedure. I indicated the risks may include but not limited such as bleeding, infection, possible repair umbilical, possible hernia recurrence, cardiopulmonary complication, stroke, multiple organs failure, , sepsis. The patient understands. He signed informed consent and I answered all questions. DETAILS OF PROCEDURE: We brought the patient to the OR, put the patient on the supine position. The patient received SCD on bilateral legs to prevent DVT. Also, the patient received Levaquin and Flagyl IV for prophylactic antibiotic. The patient received general anesthesia without difficulty. The patient received Dutton catheter insertion. The abdomen was properly draped in routine sterile fashion. After time-out, I made a midline incision. Once we reduced the umbilical hernia, once we opened the fascial layer, and immediately there was some pus coming out. Once we had full incision and we found that the patient had infected umbilical hernia sac, the pus is being sent to wound culture and there is a lot of ascites fluid with pus and we do explore abdomen, found the patient had severe cirrhosis on the liver, multiple nodule, the liver is very hard and then we followed the small bowel through and we found there is some inflammation near the distal ileum the length is about 6 cm, and 2 small stricture about 30 cm from ileum, about 50% of structure had stool. Lumen is patent and all the fluid cannot reach the cecum. No bowel obstruction at this moment. Based on patient had a significant inflammation on the abdomen, the pus, severe contamination, I decided not to do resection of the stricture and the inflammation on the small bowel. If we do resection of the small bowel, higher chance the patient develop fistula, also based on severe infection peritonitis at this moment, small bowel contain is easy to pass structure and inflammation area to reach ascending colon, no bowel obstruction. Then we checked the colon and did not find any perforation from colon and small bowel. I believe the infection source is coming from the umbilical hernia sac. No active bleeding. Then we used normal saline with 1 g of vancomycin and flushed the abdomen, suctioned fluid out, then I decided to put 2 CHANDRA drainage on the abdomen, left side and right side. Then using 3-0 nylon fixed the CHANDRA drainage on the skin. Then I decided to close the fascial layer by using #1 PDS continuous running, closed subcutaneous layer by using 2-0 Vicryl continuous running, closed skin by using staple, and the patient tolerated the procedure well. All the instrument, needle, and sponge count were correct x2 at the end of the case. The patient transferred to recovery room in stable condition. I attest to the content of the Intraoperative Record and any orders documented therein. Any exceptions are noted below. HEATHERD
[2017-09-07 08:21] LABS: ALBUMIN 2.4 gm/dl (3.4-5.0); CREATININE 0.77 mg/dl (0.60-1.40); POTASSIUM 4.2 mmol/L (3.5-5.1)
[2017-09-07 08:28] LABS: TOTAL PROTEIN 6.3 gm/dl (6.4-8.2)
[2017-09-07] MEDS: PANTOprazole SOD 40 MG TAB PO SCH (08:50)
[2017-09-07] MEDS: ENOXAPARIN 40 MG/0.4 ML SYR SQ SCH (08:52)
--- NOTE | 2017-09-07 09:40 | Medical Consult ---
Consultation Date of Consultation: Sep 07, 2017. Attending Physician: Reji Epperson MD Reason for Consultation: Peritonitis History of Present Illness 57-year-old male with history of cirrhosis in Crohn's disease, longstanding alcohol abuse, who reportedly 9 days prior to admission developed symptoms of upper respiratory tract infection with fever, chills, and cough. Two days prior to admission, patient developed progressively worsening abdominal pain and eventually came to the emergency room for further management. He was found to have evidence of intra-abdominal infection on CT scanning, and underwent emergency laparotomy with finding of incarcerated hernia and peritonitis. Patient has been treated with ciprofloxacin and metronidazole. Still with some expected postoperative pain, but abdominal pain significantly improved from admission. Currently afebrile, peritoneal cultures are pending. Blood cultures have been negative. 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 (11) Esophagitis Nos (12) Hypertension Nos (13) Liver disease, chronic, due to alcohol (14) Pneumonia (15) Portal Hypertension (16) Psychosis Nos Surgical Problems: (1) No significant past surgical history Family History Cancer Gallbladder disease Heart disease Hypertension Lung disease Social History Smoking Status: Former Smoker Smokeless Tobacco Use: No Drug Use: none Marital Status: single Housing Status: lives alone Occupation Status: disabled Allergies Coded Allergies: Adalimumab (Verified Allergy, Severe, RASH, 09/06/17) severe cutaneous local reaxtion Etanercept (Verified Allergy, Severe, RASH, 09/06/17) severe cutaneous local reaction SHELL FISH (Verified Allergy, Severe, ANAPHYLAXIS AND "I GET PURPLE", 09/06) Shellfish (Verified Allergy, Severe, Anaphylaxis, 09/06/17) Shellfish Allergy (Verified Allergy, Severe, Anaphyaxis, 09/06/17) Tromethamine (Verified Allergy, Severe, RASH, 09/06/17) Penicillins (Verified Allergy, Intermediate, PASSED OUT, 09/06/17) BEE STING (Verified Allergy, Unknown, PASSED OUT, 09/06/17) Benzyl Alcohol (Verified Allergy, Unknown, RASH, 09/06/17) Mouse Protein (Verified Allergy, Unknown, FACE AND MOUTH SWELL, 09/06/17) Secukinumab (Verified Allergy, Unknown, FACE AND MOUTH SWELL, 09/06/17) Sorbitan (Verified Allergy, Unknown, FACE AND MOUTH SWELL, 09/06/17) Varenicline (Verified Adverse Reaction, Unknown, VEINS IN FEET BLEW, ) Current Inpatient Medications Current Inpatient Medications Medications (Trade) Dose Ordered Sig/Ronaldo Route Start Time Stop Time Status Last Admin Dose Admin Ioversol (Optiray 320) 100 ml UD PRN IV 09/06/17 13:15 09/10/17 13:14 Ondansetron HCl (Zofran Inj) 4 mg Q6H PRN IV 09/06/17 14:30 10/06/17 14:29 Atenolol (Tenormin Tab) 25 mg QAM PO 09/07/17 09:00 10/07/17 08:59 Pantoprazole Sodium (Protonix Tab) 40 mg QAM PO 09/07/17 09:00 10/07/17 08:59 Levofloxacin 750 mg/Prmx 150 ml @ 100 mls/hr Q24H IV 09/07/17 11:00 09/13/17 10:59 Metronidazole 500 mg/Prmx 100 ml @ 100 mls/hr Q8H IV 09/06/17 22:00 09/13/17 21:59 09/07/17 05:48 100 MLS/HR Potassium Chloride/Sodium Chloride 1,000 ml @ 75 mls/hr [id number] IV 09/06/17 15:30 09/07/17 18:09 09/06/17 21:18 75 MLS/HR Hydrocodone Bit/ Homatropine Methylb (Hycodan Syrup) 5 ml Q6H PRN PO 09/06/17 14:30 09/20/17 14:29 Enoxaparin Sodium (Lovenox Inj) 40 mg QAM SQ 09/07/17 09:00 10/07/17 08:59 Morphine Sulfate (MoRPHine SULFATE INJ) 2 mg Q3RWA PRN IM 09/06/17 19:00 09/20/17 18:59 Hydromorphone HCl (Dilaudid Inj) 0.5 mg Q3HWA PRN IV 09/06/17 19:00 09/20/17 18:59 09/07/17 05:50 0.5 MG Review of Systems Constitutional: + fever, + chills, + weakness Eyes: No problem reported ENT: No problem reported Respiratory: + cough Cardiovascular: No problem reported Abdomen: + pain, + nausea, + vomiting Musculoskeletal: No problem reported Genitourinary - Male: No problem reported Neurologic: No problem reported Psychiatric: No problem reported Endocrine: No problem reported Hematologic / Lymphatic: No problem reported Integumentary: No problem reported Allergic / Immunologic: No problem reported Physical Exam Date Time Temp Pulse Resp B/P (MAP) Pulse Ox O2 Delivery O2 Flow Rate FiO2 09/07/17 07:30 36.6 92 18 109/70 (83) 95 Room Air 09/07/17 06:19 91 Room Air 09/07/17 03:25 36.5 83 16 111/73 (86) 98 Nasal Cannula 2.0 09/07/17 00:00 Nasal Cannula 2.0 09/06/17 22:40 36.6 90 16 105/66 (79) 96 Nasal Cannula 2.0 09/06/17 21:41 36.7 90 16 91/56 (68) 96 Nasal Cannula 2.0 09/06/17 20:46 36.6 100 17 113/71 (85) 95 Nasal Cannula 2.0 09/06/17 20:06 37.0 96 16 101/67 (78) 95 Nasal Cannula 2.0 09/06/17 19:40 94 Nasal Cannula 2.0 09/06/17 19:40 93 Nasal Cannula 2.0 09/06/17 19:40 36.9 99 16 104/69 (81) 93 Nasal Cannula 2.0 09/06/17 19:35 96 16 109/65 96 Nasal Cannula 3 09/06/17 19:20 99 16 115/68 96 Nasal Cannula 3 09/06/17 19:05 36.6 94 16 123/73 96 Nasal Cannula 3 09/06/17 18:55 90 16 120/80 98 Nasal Cannula 3 09/06/17 18:45 84 17 124/79 99 Oxymask 3 09/06/17 18:35 96 14 127/92 100 Oxymask 5 09/06/17 18:26 36.2 100 18 134/88 100 Oxymask 5 09/06/17 16:29 36.9 16 100/64 97 Room Air 09/06/17 16:14 36.9 93 16 100/64 (76) 96 Room Air 09/06/17 14:57 92 16 103/66 98 Room Air 09/06/17 14:15 95 16 107/67 97 Room Air 09/06/17 12:35 98 09/06/17 12:25 96 16 110/68 96 Room Air 09/06/17 11:26 37.4 114 18 122/68 96 Room Air General Appearance: WD/WN, no apparent distress Head: normocephalic, atraumatic Eyes: normal inspection, EOMI, sclerae normal ENT: normal ENT inspection, hearing grossly normal, pharynx normal Neck: supple, no adenopathy, thyroid normal, trachea midline Respiratory/Chest: chest non-tender, lungs clear, normal breath sounds, no respiratory distress Cardiovascular: regular rate, rhythm, no gallop, no murmur Abdomen/GI: soft, no organomegaly, + tenderness, + abnormal bowel sounds Back: normal inspection, no CVA tenderness Extremities/Musculoskelatal: normal inspection, no calf tenderness, non-tender Neurologic/Psych: alert, normal mood/affect, oriented x 3 Skin: normal color, warm/dry, no rash Lymphatic: no adenopathy Laboratory Results Date/Time Source Procedure Growth Status 09/06/17 12:30 Blood Blood Culture Pending Received 09/06/17 12:10 Blood Blood Culture Pending Received 09/06/17 17:04 Drainage-Deep Abdomen Gram Stain - Final Resulted 09/06/17 17:04 Drainage-Deep Abdomen Bacterial Culture Pending Resulted Last 24 Hours Test 09/06/17 12:10 09/06/17 12:20 09/06/17 16:10 09/06/17 18:30 White Blood Count 19.03 K/uL Red Blood Count 4.17 M/uL Hemoglobin 11.1 g/dL 9.8 g/dL Hematocrit 31.4 % 28.4 % Mean Corpuscular Volume 75.3 fL Mean Corpuscular Hemoglobin 26.6 pg Mean Corpuscular Hemoglobin Concent 35.4 g/dl Platelet Count 191 K/uL Mean Platelet Volume 10.3 fL Neutrophils (%) (Auto) 88.1 % Lymphocytes (%) (Auto) 3.5 % Monocytes (%) (Auto) 7.6 % Eosinophils (%) (Auto) 0.0 % Basophils (%) (Auto) 0.1 % Neutrophils # (Auto) 16.77 K/uL Lymphocytes # (Auto) 0.67 K/uL Monocytes # (Auto) 1.44 K/uL Eosinophils # (Auto) 0.00 K/uL Basophils # (Auto) 0.02 K/uL RDW Standard Deviation 46.7 fL RDW Coefficient of Variation 17.0 % Immature Granulocyte % (Auto) 0.7 % Immature Granulocyte # (Auto) 0.13 K/uL Dohle Bodies 1+ Echinocytes 1+ Prothrombin Time 13.8 SECONDS Prothromb Time International Ratio 1.3 Activated Partial Thromboplast Time 35.5 SECONDS Partial Thromboplastin Ratio 1.4 Sodium Level 129 mmol/L 133 mmol/L Potassium Level 2.9 mmol/L 3.5 mmol/L Chloride Level 99 mmol/L 104 mmol/L Carbon Dioxide Level 21 mmol/L 19 mmol/L Anion Gap 9.0 mmol/L 16.0 mmol/L 10.0 mmol/L Blood Urea Nitrogen 23 mg/dl 17 mg/dl Creatinine 0.97 mg/dl 0.82 mg/dl Est Creatinine Clear Calc Drug Dose 79.0 ml/min 91.8 ml/min Estimated GFR () 101.4 115.4 Estimated GFR (Non- 87.5 99.6 BUN/Creatinine Ratio 24.0 20.3 Random Glucose 105 mg/dl 83 mg/dl Calcium Level 8.4 mg/dl 7.5 mg/dl Total Bilirubin 2.6 mg/dl Direct Bilirubin 1.2 mg/dl Aspartate Amino Transf (AST/SGOT) 23 U/L Alanine Aminotransferase (ALT/SGPT) 17 U/L Alkaline Phosphatase 88 U/L Troponin I < 0.015 ng/ml Total Protein 7.1 gm/dl Albumin 2.5 gm/dl Lipase 196 U/L Bedside Lactic Acid Venous 2.46 mmol/L Bedside Hemoglobin 9.9 g/dl Bedside Hematocrit 29 % Bedside Sodium 131 mEq/L Bedside Potassium 5.6 mEq/L Bedside Chloride 98 mEq/L Bedside Total CO2 23 mEq/l Bedside Blood Urea Nitrogen 26 mg/dl Bedside Creatinine 0.7 mg/dl Bedside Glucose (other) 94 mg/dl Bedside Ionized Calcium (Tavares) 1.05 mmol/l Test 09/07/17 03:08 09/07/17 05:58 09/07/17 07:30 Urine Color ORANGE Urine Appearance CLEAR Urine pH 5.5 Urine Specific [place] 1.032 Urine Protein TRACE Urine Glucose (UA) NEG Urine Ketones TRACE Urine Occult Blood NEG Urine Nitrite POS Urine Bilirubin 1+ Urine Urobilinogen NEG Urine Leukocyte Esterase SMALL Urine WBC (Auto) 10-30 /hpf Urine RBC (Auto) 10-30 /hpf Urine Hyaline Casts (Auto) 10-30 /lpf Urine Epithelial Cells (Auto) >30 /lpf Urine Bacteria (Auto) NEG Urine Renal Epithelial Cells 0-5 /lpf Bedside Glucose 80 mg/dl White Blood Count 11.92 K/uL Red Blood Count 3.95 M/uL Hemoglobin 10.5 g/dL Hematocrit 31.0 % Mean Corpuscular Volume 78.5 fL Mean Corpuscular Hemoglobin 26.6 pg Mean Corpuscular Hemoglobin Concent 33.9 g/dl Platelet Count 191 K/uL Mean Platelet Volume 10.1 fL Neutrophils (%) (Auto) 83.4 % Lymphocytes (%) (Auto) 7.3 % Monocytes (%) (Auto) 8.0 % Eosinophils (%) (Auto) 0.5 % Basophils (%) (Auto) 0.3 % Neutrophils # (Auto) 9.95 K/uL Lymphocytes # (Auto) 0.87 K/uL Monocytes # (Auto) 0.95 K/uL Eosinophils # (Auto) 0.06 K/uL Basophils # (Auto) 0.03 K/uL RDW Standard Deviation 50.4 fL RDW Coefficient of Variation 17.6 % Immature Granulocyte % (Auto) 0.5 % Immature Granulocyte # (Auto) 0.06 K/uL Sodium Level 137 mmol/L Potassium Level 4.2 mmol/L Chloride Level 108 mmol/L Carbon Dioxide Level 23 mmol/L Anion Gap 7.0 mmol/L Blood Urea Nitrogen 16 mg/dl Creatinine 0.77 mg/dl Est Creatinine Clear Calc Drug Dose 97.8 ml/min Estimated GFR () 118.4 Estimated GFR (Non- 102.2 BUN/Creatinine Ratio 20.8 Random Glucose 86 mg/dl Calcium Level 8.0 mg/dl Total Bilirubin 1.7 mg/dl Aspartate Amino Transf (AST/SGOT) 20 U/L Alanine Aminotransferase (ALT/SGPT) 13 U/L Alkaline Phosphatase 74 U/L Total Protein 6.3 gm/dl Albumin 2.4 gm/dl Globulin 3.9 gm/dl Albumin/Globulin Ratio 0.6 Patient Name: EPI YAÑEZ Unit Number: [id number] Dictated: 09/06/171425 Transcribed: 09/06/171425 PBS Printed Date/Time: [~ rep prt dt]/[~ rep prt tm] [~ rep ct labl] - [~ rep ct ivnm] [facility] [place]iology [place] [address] Dictated: 09/06/171425 Transcribed: 09/06/171425 PBS Printed Date/Time: [~ rep prt dt]/[~ rep prt tm] [~ rep ct labl] - [~ rep ct ivnm] [~ rep ct add3]] ADDENDUM On further evaluation, multiple foci of free intraperitoneal gas. No specific source of perforation is identified. Again, no pneumatosis. The presumed perforation of a hollow viscus does provide and explanation for the presence of peritonitis. As additional commentary on previously noted small bowel wall thickening, the multifocal sites of small bowel wall thickening with intervening small bowel distention is nonspecific. This could be seen in the setting of infectious enteritis, small bowel injury of edema, post radiation change, portal enteropathy, [id number] disease, or Crohn's disease. These findings were discussed with physician tourist information assistant Gumaro Millard by Dr. Baxter on 09/06/2017 2:31 PM. Electronically signed by: Sukh Baxter M.D. 09/06/2017 2:33 PM Dictated Date/Time: 09/06/2017 2:26 PM ORIGINAL REPORT ABD/PELVIS IV CONTRAST ONLY CLINICAL HISTORY: 57 years-old Male presenting with umbilical hernia repair now abd distention, hernia repair, fever, dehydration. TECHNIQUE: Multidetector CT of the abdomen and pelvis was performed after the administration of intravenous contrast. IV contrast: 94 mL of Optiray 320. A dose lowering technique was used consistent with the principles of ALARA (as low as reasonably achievable). COMPARISON: 07/14/2014. CT DOSE (mGy.cm): The estimated cumulative dose is 785.75 mGycm. FINDINGS: Nail Cutter topogram: Gaseous distention of small bowel. Lung bases: Patchy groundglass opacities in the anterior segment of the right upper lobe. Normal heart size. No pericardial or pleural effusion. Liver: Nodular contour of the liver compatible with cirrhosis. No focal lesion allowing for the single phase of contrast. Patent hepatic vasculature. Biliary: No intrahepatic or extrahepatic biliary ductal dilatation. Normal gallbladder. Pancreas: Mild parenchymal atrophy. Mild prominence of the pancreatic duct without evidence of an obstructing mass. Spleen: Enlarged, measuring nearly 16 cm in maximal sagittal dimension. Adrenal glands: Normal. Kidneys and ureters: Normal. No hydronephrosis. Bladder: Normal. Pelvic organs: Prostate and seminal vesicles normal. Bowel: Wall thickening of the ascending colon, nonspecific and possibly portal colopathy. Intramural fat deposition in the terminal ileum, nonspecific. Small bowel is diffusely dilated with multifocal intervening regions of wall thickening. Bowel tapers smoothly to normal caliber in the upper abdomen. Peritoneal cavity: Diffuse mesenteric and omental infiltration, likely edema. Small abdominopelvic ascites. There may be peritoneal thickening and enhancement best evidenced in the pelvis. No pneumoperitoneum. Lymph nodes: No enlarged lymph nodes in the abdomen or pelvis. Vasculature: Extensive varices including esophageal/parasellar esophageal, mesenteric, perigastric, and right varicocele. Atherosclerosis of the normal caliber abdominal aorta. IVC patent. Abdominal wall: Fat and fluid containing umbilical hernia. Bilateral gynecomastia. Musculoskeletal: Degenerative changes of the spine. IMPRESSION: 1. Cirrhosis with portal hypertension evidenced by varices and splenomegaly. 2. Multifocal small bowel wall thickening with intervening small bowel distention. This appearance is nonspecific and can be seen in the setting of Crohn's disease, multifocal strictures in the setting of post radiation change, or potentially portal enteropathy. An infectious enteritis is considered less likely. 3. No small bowel obstruction. 4. Small volume abdominopelvic ascites with suggestion of peritonitis. 5. Groundglass opacities in the right upper lobe raises concern for infection/pneumonia. Electronically signed by: Sukh Baxter M.D. 09/06/2017 1:51 PM Dictated Date/Time: 09/06/2017 1:41 PM The status of this report is Signed. Draft = Not yet reviewed or approved by Radiologist. Signed = Reviewed and approved by Radiologist. <AttendingPhy></AttendingPhy> <FamilyPhy>Julián Kenny M.D.</FamilyPhy> < PrimaryPhy>Mary Díaz M.D.</PrimaryPhy> <UnitNumber>[id number]</ UnitNumber> <VisitNumber>[id number]</VisitNumber> <PatientName>EPI YAÑEZ</PatientName> <DateOfBirth>1960</DateOfBirth> <Location>[facility]</ Location> <ServiceDate>09/06/17</ServiceDate> <MNE>ESINDI</MNE> <OrderingPhy> Gumaro Millard PA-C</OrderingPhy> <OrderingPhyMNE>f rep ord dr ferguson</ OrderingPhyMNE> <DictatingPhyMNE>f rep dict dr ferguson</DictatingPhyMNE> <CCListMNE> f rep ct mne</CCListMNE> <AdmittingPhyMNE>f pt admit dr ferguson</AdmittingPhyMNE> < AttendingPhyMNE>f pt attend dr ferguson</AttendingPhyMNE> <ConsultingPhyMNE>f pt consult dr ferguson</ConsultingPhyMNE> <FamilyPhyMNE>f pt fam dr ferguson</FamilyPhyMNE> <OtherPhyMNE>f pt other dr ferguson</OtherPhyMNE> < PrimaryPhyMNE>f pt prim care dr ferguson</PrimaryPhyMNE> <ReferringPhyMNE>f pt referring dr ferguson</ReferringPhyMNE> Assessment & Plan 57 yo male with cirrhosis, Crohn's disease now s/p emergency laparotomy for incarcerated hernia, perforation and peritonitis. Pending culture results, will start on ertapenem 1 gram q 24 hr as thinks he has tolerated cephalexin in past. Will follow.
[2017-09-07] MEDS: ERTAPENEM IV 1 GM in SODIUM CHLOR 0.9% AD-VAN 50ML 50 ML IV SCH (10:44)
--- NOTE | 2017-09-07 10:55 | Gastrointestinal Consultation ---
Gastrointestinal Consultation Date of Consultation: Sep 07, 2017 Attending Physician: Zeenat Consulting Physician: Eduardo Reason for Consultation: crohn's History of Present Illness Patient is a 57 year old male w/ history of crohn's disease not on therapy, ETOH cirrhosis w/ concern of his ETOH cessation who was admitted through the ED for abdominal pain, CT w/ free air and incarcerated umbilical hernia who is s/p ex-lap w/ evidence of infected umbilical hernia sac, peritonitis. GI was asked to evaluate the pt for history of crohn's. Diagnosed with crohn's in 2009 w/ weight loss, bleeding diarrhea colonoscopy w/ colonic disease. He was started on different therapies including steroids, humira which were d/c due to side effects. He has a known stricture in transverse colon and there has been plan for MRE for small bowel examination as we were unable to reach via endoscopy. Today, he denies any issues. Denies chronic abdominal pain. Typically has a formed stool 1-2 times daily. No black or bloody stools. The abdominal pain he presented w/ is improved. No fever, chills, CP, SOB. Diagnosis: ETOH cirrhosis Decompensations: Varices: yes, previously banded Ascites: yes HE: none Screenings: HCC: up to date with CT on admission Immunizations: unknown EGD: due CT ABD/Pelvis: Cirrhosis with portal hypertension evidenced by varices and splenomegaly. Multifocal small bowel wall thickening with intervening small bowel distention. This appearance is nonspecific and can be seen in the setting of Crohn's disease, multifocal strictures in the setting of post radiation change, or potentially portal enteropathy. An infectious enteritis is considered less likely. No small bowel obstruction. Small volume abdominopelvic ascites with suggestion of peritonitis. Groundglass opacities in the right upper lobe raises concern for infection/pneumonia. CTE 08/23/17: Wall thickening and mucosal enhancement involving a short segment of distal ileum is likely related to given history of Crohn's disease. Persistent focal narrowing of this segment without proximal obstruction. No definite colonic stricture. A short segment of narrowing involving distal descending colon may be related to incomplete distention. Please correlate with colonoscopy. Cirrhosis with portal hypertension. No suspicious focal liver mass. Colonoscopy 06/27/17: Stricture at 60 cm proximal to the anus. Biopsied. Normal mucosa in the entire examined colon. Biopsied. Internal hemorrhoids. EGD 01/29/15: Grade II esophageal varices. Completely eradicated. Banded. Scar in the lower third of the esophagus from prior banding.Portal hypertensive gastropathy. Normal examined duodenum. No specimens collected. Past Medical/Surgical History Medical Problems: (1) Constipation Status: Acute (2) Ileus Status: Acute (3) Liver disease, chronic, due to alcohol Status: Chronic Surgical Problems: (1) No significant past surgical history Status: Chronic Past Medical History: ETOH abuse, ETOH cirrhosis, portal HTN, eso varices, ankylosing spondylitis, ascites, HTN, crohns, history [place] Past Surgical History: EGD Colonoscopy Ex-Lap Hernia repair Tonsillectomy Family History Cancer Gallbladder disease Heart disease Hypertension Lung disease Social History Smoking Status: Former Smoker Alcohol Use: occasionally Drug Use: none Marital Status: single Housing Status: lives alone Occupation Status: disabled Allergies Coded Allergies: Adalimumab (Verified Allergy, Severe, RASH, 09/06/17) severe cutaneous local reaxtion Etanercept (Verified Allergy, Severe, RASH, 09/06/17) severe cutaneous local reaction SHELL FISH (Verified Allergy, Severe, ANAPHYLAXIS AND "I GET PURPLE", 09/06) Shellfish (Verified Allergy, Severe, Anaphylaxis, 09/06/17) Shellfish Allergy (Verified Allergy, Severe, Anaphyaxis, 09/06/17) Tromethamine (Verified Allergy, Severe, RASH, 09/06/17) Penicillins (Verified Allergy, Intermediate, PASSED OUT, 09/06/17) BEE STING (Verified Allergy, Unknown, PASSED OUT, 09/06/17) Benzyl Alcohol (Verified Allergy, Unknown, RASH, 09/06/17) Mouse Protein (Verified Allergy, Unknown, FACE AND MOUTH SWELL, 09/06/17) Secukinumab (Verified Allergy, Unknown, FACE AND MOUTH SWELL, 09/06/17) Sorbitan (Verified Allergy, Unknown, FACE AND MOUTH SWELL, 09/06/17) Varenicline (Verified Adverse Reaction, Unknown, VEINS IN FEET BLEW, ) Current Medications Home Meds and Scripts Medications Dose Route/Sig Max Daily Dose Days Date Category Dose Instructions Tenormin (Atenolol) 25 Mg Tab 25 Mg PO QAM 06/23/17 Reported Mobic (Meloxicam) 15 Mg Tab 15 Mg PO QAM 05/26/13 Reported Protonix (Pantoprazole Sodium) 40 Mg Tab 40 Mg PO QAM 08/27/12 Reported TAKE THIS MEDICATION 30 MINUTES BEFORE FIRST MEAL OF THE DAY. Review of Systems Constitutional: No fever, No chills, No weight loss, No weakness Respiratory: No cough, No shortness of breath Cardiac: No chest pain, No edema Abdomen: No pain, No nausea, No vomiting, No diarrhea, No constipation, No GI bleeding Physical Exam Date Time Temp Pulse Resp B/P (MAP) Pulse Ox O2 Delivery O2 Flow Rate FiO2 09/07/17 07:30 36.6 92 18 109/70 (83) 95 Room Air 09/07/17 06:19 91 Room Air 09/07/17 03:25 36.5 83 16 111/73 (86) 98 Nasal Cannula 2.0 09/07/17 00:00 Nasal Cannula 2.0 09/06/17 22:40 36.6 90 16 105/66 (79) 96 Nasal Cannula 2.0 09/06/17 21:41 36.7 90 16 91/56 (68) 96 Nasal Cannula 2.0 09/06/17 20:46 36.6 100 17 113/71 (85) 95 Nasal Cannula 2.0 09/06/17 20:06 37.0 96 16 101/67 (78) 95 Nasal Cannula 2.0 09/06/17 19:40 94 Nasal Cannula 2.0 09/06/17 19:40 93 Nasal Cannula 2.0 09/06/17 19:40 36.9 99 16 104/69 (81) 93 Nasal Cannula 2.0 09/06/17 19:35 96 16 109/65 96 Nasal Cannula 3 09/06/17 19:20 99 16 115/68 96 Nasal Cannula 3 09/06/17 19:05 36.6 94 16 123/73 96 Nasal Cannula 3 09/06/17 18:55 90 16 120/80 98 Nasal Cannula 3 09/06/17 18:45 84 17 124/79 99 Oxymask 3 09/06/17 18:35 96 14 127/92 100 Oxymask 5 09/06/17 18:26 36.2 100 18 134/88 100 Oxymask 5 09/06/17 16:29 36.9 16 100/64 97 Room Air 09/06/17 16:14 36.9 93 16 100/64 (76) 96 Room Air 09/06/17 14:57 92 16 103/66 98 Room Air 09/06/17 14:15 95 16 107/67 97 Room Air 09/06/17 12:35 98 09/06/17 12:25 96 16 110/68 96 Room Air 09/06/17 11:26 37.4 114 18 122/68 96 Room Air General Appearance: no apparent distress Eyes: PERRL ENT: hearing grossly normal Neck: supple, trachea midline Respiratory/Chest: lungs clear, normal breath sounds, no respiratory distress, no accessory muscle use Cardiovascular: regular rate, rhythm, no edema, no gallop, no JVD Abdomen: non tender, soft, no organomegaly, no pulsatile mass, + pertinent finding (dressing intact w/ drain in place) Neurologic/Psych: alert, normal mood/affect, oriented x 3 Skin: normal color Laboratory Results Last 24 Hours Test 09/06/17 12:10 09/06/17 12:20 09/06/17 16:10 09/06/17 18:30 White Blood Count 19.03 K/uL Red Blood Count 4.17 M/uL Hemoglobin 11.1 g/dL 9.8 g/dL Hematocrit 31.4 % 28.4 % Mean Corpuscular Volume 75.3 fL Mean Corpuscular Hemoglobin 26.6 pg Mean Corpuscular Hemoglobin Concent 35.4 g/dl Platelet Count 191 K/uL Mean Platelet Volume 10.3 fL Neutrophils (%) (Auto) 88.1 % Lymphocytes (%) (Auto) 3.5 % Monocytes (%) (Auto) 7.6 % Eosinophils (%) (Auto) 0.0 % Basophils (%) (Auto) 0.1 % Neutrophils # (Auto) 16.77 K/uL Lymphocytes # (Auto) 0.67 K/uL Monocytes # (Auto) 1.44 K/uL Eosinophils # (Auto) 0.00 K/uL Basophils # (Auto) 0.02 K/uL RDW Standard Deviation 46.7 fL RDW Coefficient of Variation 17.0 % Immature Granulocyte % (Auto) 0.7 % Immature Granulocyte # (Auto) 0.13 K/uL Dohle Bodies 1+ Echinocytes 1+ Prothrombin Time 13.8 SECONDS Prothromb Time International Ratio 1.3 Activated Partial Thromboplast Time 35.5 SECONDS Partial Thromboplastin Ratio 1.4 Sodium Level 129 mmol/L 133 mmol/L Potassium Level 2.9 mmol/L 3.5 mmol/L Chloride Level 99 mmol/L 104 mmol/L Carbon Dioxide Level 21 mmol/L 19 mmol/L Anion Gap 9.0 mmol/L 16.0 mmol/L 10.0 mmol/L Blood Urea Nitrogen 23 mg/dl 17 mg/dl Creatinine 0.97 mg/dl 0.82 mg/dl Est Creatinine Clear Calc Drug Dose 79.0 ml/min 91.8 ml/min Estimated GFR () 101.4 115.4 Estimated GFR (Non- 87.5 99.6 BUN/Creatinine Ratio 24.0 20.3 Random Glucose 105 mg/dl 83 mg/dl Calcium Level 8.4 mg/dl 7.5 mg/dl Total Bilirubin 2.6 mg/dl Direct Bilirubin 1.2 mg/dl Aspartate Amino Transf (AST/SGOT) 23 U/L Alanine Aminotransferase (ALT/SGPT) 17 U/L Alkaline Phosphatase 88 U/L Troponin I < 0.015 ng/ml Total Protein 7.1 gm/dl Albumin 2.5 gm/dl Lipase 196 U/L Bedside Lactic Acid Venous 2.46 mmol/L Bedside Hemoglobin 9.9 g/dl Bedside Hematocrit 29 % Bedside Sodium 131 mEq/L Bedside Potassium 5.6 mEq/L Bedside Chloride 98 mEq/L Bedside Total CO2 23 mEq/l Bedside Blood Urea Nitrogen 26 mg/dl Bedside Creatinine 0.7 mg/dl Bedside Glucose (other) 94 mg/dl Bedside Ionized Calcium (Tavares) 1.05 mmol/l Test 09/07/17 03:08 09/07/17 05:58 09/07/17 07:30 Urine Color ORANGE Urine Appearance CLEAR Urine pH 5.5 Urine Specific [place] 1.032 Urine Protein TRACE Urine Glucose (UA) NEG Urine Ketones TRACE Urine Occult Blood NEG Urine Nitrite POS Urine Bilirubin 1+ Urine Urobilinogen NEG Urine Leukocyte Esterase SMALL Urine WBC (Auto) 10-30 /hpf Urine RBC (Auto) 10-30 /hpf Urine Hyaline Casts (Auto) 10-30 /lpf Urine Epithelial Cells (Auto) >30 /lpf Urine Bacteria (Auto) NEG Urine Renal Epithelial Cells 0-5 /lpf Bedside Glucose 80 mg/dl White Blood Count 11.92 K/uL Red Blood Count 3.95 M/uL Hemoglobin 10.5 g/dL Hematocrit 31.0 % Mean Corpuscular Volume 78.5 fL Mean Corpuscular Hemoglobin 26.6 pg Mean Corpuscular Hemoglobin Concent 33.9 g/dl Platelet Count 191 K/uL Mean Platelet Volume 10.1 fL Neutrophils (%) (Auto) 83.4 % Lymphocytes (%) (Auto) 7.3 % Monocytes (%) (Auto) 8.0 % Eosinophils (%) (Auto) 0.5 % Basophils (%) (Auto) 0.3 % Neutrophils # (Auto) 9.95 K/uL Lymphocytes # (Auto) 0.87 K/uL Monocytes # (Auto) 0.95 K/uL Eosinophils # (Auto) 0.06 K/uL Basophils # (Auto) 0.03 K/uL RDW Standard Deviation 50.4 fL RDW Coefficient of Variation 17.6 % Immature Granulocyte % (Auto) 0.5 % Immature Granulocyte # (Auto) 0.06 K/uL Sodium Level 137 mmol/L Potassium Level 4.2 mmol/L Chloride Level 108 mmol/L Carbon Dioxide Level 23 mmol/L Anion Gap 7.0 mmol/L Blood Urea Nitrogen 16 mg/dl Creatinine 0.77 mg/dl Est Creatinine Clear Calc Drug Dose 97.8 ml/min Estimated GFR () 118.4 Estimated GFR (Non- 102.2 BUN/Creatinine Ratio 20.8 Random Glucose 86 mg/dl Calcium Level 8.0 mg/dl Total Bilirubin 1.7 mg/dl Aspartate Amino Transf (AST/SGOT) 20 U/L Alanine Aminotransferase (ALT/SGPT) 13 U/L Alkaline Phosphatase 74 U/L Total Protein 6.3 gm/dl Albumin 2.4 gm/dl Globulin 3.9 gm/dl Albumin/Globulin Ratio 0.6 Impression Patient is a 57 year old male admitted with free air and incarcerated umbilical hernia s/p ex-lap w/ evidence of infected umbilical hernia sac, peritonitis to start on ABX per infectious disease consultation. GI was asked to evaluate him for his IBD. He has not been on therapy for this and is clinically asymptomatic , however w/ active disease on recent colonoscopy and a colonic stricture. He had small bowel evaluation with CTE as an outpatient w/ wall thickening and mucosal enhancement of the distal ileum w/ focal narrowing of this segment without proximal obstruction. There is concern about his candidacy for surgical revision given his history of decompensated cirrhosis. Currently, he seems optimized from a cirrhosis standpoint. He should be on a biologic therapy for his crohn's disease. Plan Cirrhosis Management - No ETOH - Less than 2G of sodium daily - Less than 2G of tylenol daily Crohn's Disease - TB test - Hep B IGM, IGM - OP GI follow up to discuss restarting biologic with his previous GI provider - OP colorectal appointment to discuss surgical options for strictures GI to sign off, please call with any questions or concerns. I performed a history and physical examination of the patient. I have discussed the patient's case, impression and plan with EV Carvajal. Her note reflects my findings and plan. Doing well post op. He will need out patient follow up with regular providers. Beni Clark MD
[2017-09-07] MEDS ORDERED: LEVOFLOXACIN / D5W 750 MG in PREMIXED IN D5W 150 ML IV SCH (11:00)
[2017-09-07 11:23] VITALS: BP 112/73; PULSE 98; TEMP 37; O2SAT 92
--- NOTE | 2017-09-07 11:50 | Surgery Progress Note ---
Surgery Progress Note Date of Service Sep 07, 2017. Subjective Post OP Day: 1 + feeling well pt is doing better, no abdominal pain, no nausea, no vomiting, NG -0 Objective Vital Signs: Date Time Temp Pulse Resp B/P (MAP) Pulse Ox O2 Delivery O2 Flow Rate FiO2 09/07/17 11:23 37.0 98 18 112/73 (86) 92 Room Air 09/07/17 08:15 Room Air 09/07/17 07:30 36.6 92 18 109/70 (83) 95 Room Air 09/07/17 06:19 91 Room Air 09/07/17 03:25 36.5 83 16 111/73 (86) 98 Nasal Cannula 2.0 09/07/17 00:00 Nasal Cannula 2.0 09/06/17 22:40 36.6 90 16 105/66 (79) 96 Nasal Cannula 2.0 09/06/17 21:41 36.7 90 16 91/56 (68) 96 Nasal Cannula 2.0 09/06/17 20:46 36.6 100 17 113/71 (85) 95 Nasal Cannula 2.0 09/06/17 20:06 37.0 96 16 101/67 (78) 95 Nasal Cannula 2.0 09/06/17 19:40 94 Nasal Cannula 2.0 09/06/17 19:40 93 Nasal Cannula 2.0 09/06/17 19:40 36.9 99 16 104/69 (81) 93 Nasal Cannula 2.0 09/06/17 19:35 96 16 109/65 96 Nasal Cannula 3 09/06/17 19:20 99 16 115/68 96 Nasal Cannula 3 09/06/17 19:05 36.6 94 16 123/73 96 Nasal Cannula 3 09/06/17 18:55 90 16 120/80 98 Nasal Cannula 3 09/06/17 18:45 84 17 124/79 99 Oxymask 3 09/06/17 18:35 96 14 127/92 100 Oxymask 5 09/06/17 18:26 36.2 100 18 134/88 100 Oxymask 5 09/06/17 16:29 36.9 16 100/64 97 Room Air 09/06/17 16:14 36.9 93 16 100/64 (76) 96 Room Air 09/06/17 14:57 92 16 103/66 98 Room Air 09/06/17 14:15 95 16 107/67 97 Room Air 09/06/17 12:35 98 09/06/17 12:25 96 16 110/68 96 Room Air General Appearance: WD/WN, no apparent distress Head: normocephalic Neck: supple, no JVD Respiratory/Chest: chest non-tender, lungs clear Cardiovascular: regular rate, rhythm, no edema, no gallop, no JVD Abdomen: normal bowel sounds, non tender, non distended, soft, + distended Incision(s): clean, dry, intact Extremities: normal range of motion, non-tender, normal inspection Laboratory Results: Results Past 24 Hours Test 09/06/17 12:10 09/06/17 12:20 09/06/17 16:10 09/06/17 18:30 Range/Units White Blood Count 19.03 4.8-10.8 K/uL Red Blood Count 4.17 4.7-6.1 M/uL Hemoglobin 11.1 9.8 14.0-18.0 g/dL Hematocrit 31.4 28.4 42-52 % Mean Corpuscular Volume 75.3 80-100 fL Mean Corpuscular Hemoglobin 26.6 25-34 pg Mean Corpuscular Hemoglobin Concent 35.4 32-36 g/dl Platelet Count 191 130-400 K/uL Mean Platelet Volume 10.3 7.4-10.4 fL Neutrophils (%) (Auto) 88.1 % Lymphocytes (%) (Auto) 3.5 % Monocytes (%) (Auto) 7.6 % Eosinophils (%) (Auto) 0.0 % Basophils (%) (Auto) 0.1 % Neutrophils # (Auto) 16.77 1.4-6.5 K/uL Lymphocytes # (Auto) 0.67 1.2-3.4 K/uL Monocytes # (Auto) 1.44 0.11-0.59 K/uL Eosinophils # (Auto) 0.00 0-0.5 K/uL Basophils # (Auto) 0.02 0-0.2 K/uL RDW Standard Deviation 46.7 36.4-46.3 fL RDW Coefficient of Variation 17.0 11.5-14.5 % Immature Granulocyte % (Auto) 0.7 % Immature Granulocyte # (Auto) 0.13 0.00-0.02 K/uL Dohle Bodies 1+ Echinocytes 1+ Prothrombin Time 13.8 9.0-12.0 SECONDS Prothromb Time International Ratio 1.3 0.9-1.1 Activated Partial Thromboplast Time 35.5 21.0-31.0 SECONDS Partial Thromboplastin Ratio 1.4 Sodium Level 129 133 136-145 mmol/L Potassium Level 2.9 3.5 3.5-5.1 mmol/L Chloride Level 99 104 98-107 mmol/L Carbon Dioxide Level 21 19 21-32 mmol/L Anion Gap 9.0 16.0 10.0 3-11 mmol/L Blood Urea Nitrogen 23 17 7-18 mg/dl Creatinine 0.97 0.82 0.60-1.40 mg/dl Est Creatinine Clear Calc Drug Dose 79.0 91.8 ml/min Estimated GFR () 101.4 115.4 Estimated GFR (Non- 87.5 99.6 BUN/Creatinine Ratio 24.0 20.3 10-20 Random Glucose 105 83 70-99 mg/dl Calcium Level 8.4 7.5 8.5-10.1 mg/dl Total Bilirubin 2.6 0.2-1 mg/dl Direct Bilirubin 1.2 0-0.2 mg/dl Aspartate Amino Transf (AST/SGOT) 23 15-37 U/L Alanine Aminotransferase (ALT/SGPT) 17 12-78 U/L Alkaline Phosphatase 88 45-117 U/L Troponin I < 0.015 0-0.045 ng/ml Total Protein 7.1 6.4-8.2 gm/dl Albumin 2.5 3.4-5.0 gm/dl Lipase 196 73-393 U/L Bedside Lactic Acid Venous 2.46 0.90-1.70 mmol/L Bedside Hemoglobin 9.9 14.0-18.0 g/dl Bedside Hematocrit 29 42-52 % Bedside Sodium 131 135-144 mEq/L Bedside Potassium 5.6 3.3-5.0 mEq/L Bedside Chloride 98 101-112 mEq/L Bedside Total CO2 23 24-31 mEq/l Bedside Blood Urea Nitrogen 26 7-18 mg/dl Bedside Creatinine 0.7 0.6-1.3 mg/dl Bedside Glucose (other) 94 70-99 mg/dl Bedside Ionized Calcium (Tavares) 1.05 1.12-1.32 mmol/l Test 09/07/17 03:08 09/07/17 05:58 09/07/17 07:30 Range/Units Urine Color ORANGE Urine Appearance CLEAR CLEAR Urine pH 5.5 4.5-7.5 Urine Specific [place] 1.032 1.000-1.030 Urine Protein TRACE NEG Urine Glucose (UA) NEG NEG Urine Ketones TRACE NEG Urine Occult Blood NEG NEG Urine Nitrite POS NEG Urine Bilirubin 1+ NEG Urine Urobilinogen NEG NEG Urine Leukocyte Esterase SMALL NEG Urine WBC (Auto) 10-30 0-5 /hpf Urine RBC (Auto) 10-30 0-4 /hpf Urine Hyaline Casts (Auto) 10-30 0-5 /lpf Urine Epithelial Cells (Auto) >30 0-5 /lpf Urine Bacteria (Auto) NEG NEG Urine Renal Epithelial Cells 0-5 0-5 /lpf Bedside Glucose 80 70-99 mg/dl White Blood Count 11.92 4.8-10.8 K/uL Red Blood Count 3.95 4.7-6.1 M/uL Hemoglobin 10.5 14.0-18.0 g/dL Hematocrit 31.0 42-52 % Mean Corpuscular Volume 78.5 80-100 fL Mean Corpuscular Hemoglobin 26.6 25-34 pg Mean Corpuscular Hemoglobin Concent 33.9 32-36 g/dl Platelet Count 191 130-400 K/uL Mean Platelet Volume 10.1 7.4-10.4 fL Neutrophils (%) (Auto) 83.4 % Lymphocytes (%) (Auto) 7.3 % Monocytes (%) (Auto) 8.0 % Eosinophils (%) (Auto) 0.5 % Basophils (%) (Auto) 0.3 % Neutrophils # (Auto) 9.95 1.4-6.5 K/uL Lymphocytes # (Auto) 0.87 1.2-3.4 K/uL Monocytes # (Auto) 0.95 0.11-0.59 K/uL Eosinophils # (Auto) 0.06 0-0.5 K/uL Basophils # (Auto) 0.03 0-0.2 K/uL RDW Standard Deviation 50.4 36.4-46.3 fL RDW Coefficient of Variation 17.6 11.5-14.5 % Immature Granulocyte % (Auto) 0.5 % Immature Granulocyte # (Auto) 0.06 0.00-0.02 K/uL Sodium Level 137 136-145 mmol/L Potassium Level 4.2 3.5-5.1 mmol/L Chloride Level 108 98-107 mmol/L Carbon Dioxide Level 23 21-32 mmol/L Anion Gap 7.0 3-11 mmol/L Blood Urea Nitrogen 16 7-18 mg/dl Creatinine 0.77 0.60-1.40 mg/dl Est Creatinine Clear Calc Drug Dose 97.8 ml/min Estimated GFR () 118.4 Estimated GFR (Non- 102.2 BUN/Creatinine Ratio 20.8 10-20 Random Glucose 86 70-99 mg/dl Calcium Level 8.0 8.5-10.1 mg/dl Total Bilirubin 1.7 0.2-1 mg/dl Aspartate Amino Transf (AST/SGOT) 20 15-37 U/L Alanine Aminotransferase (ALT/SGPT) 13 12-78 U/L Alkaline Phosphatase 74 45-117 U/L Total Protein 6.3 6.4-8.2 gm/dl Albumin 2.4 3.4-5.0 gm/dl Globulin 3.9 2.5-4.0 gm/dl Albumin/Globulin Ratio 0.6 0.9-2 Microbiology Results 09/06/17 Blood Culture, Received Pending 09/06/17 Blood Culture, Received Pending 09/06/17 Gram Stain - Final, Resulted 09/06/17 Bacterial Culture, Resulted Pending Assessment & Plan doing fine GI consult for treating crohn's disease ID consult repeat labs in am, will F/U OOB D/C NG tube,
[2017-09-07] MEDS ORDERED: BISACODYL 5 MG TABEC PO ONE (12:00)
[2017-09-07] MEDS: NSS + 20MEQ KCL 1000ML 1,000 ML IV SCH (13:06)
[2017-09-07] MEDS: METOCLOPRAMIDE HCL INJ 5 MG/ML 2 ML VIAL IV. SCH ×2 (13:06→18:37)
--- NOTE | 2017-09-07 14:27 | Anesthesiology Progress Note ---
Anesthesia Post Op Note Date & Time Sep 07, 2017 at 14:26 Vital Signs Vital Signs Past 12 Hours Date Time Temp Pulse Resp B/P (MAP) Pulse Ox O2 Delivery O2 Flow Rate FiO2 09/07/17 11:23 37.0 98 18 112/73 (86) 92 Room Air 09/07/17 08:15 Room Air 09/07/17 07:30 36.6 92 18 109/70 (83) 95 Room Air 09/07/17 06:19 91 Room Air 09/07/17 03:25 36.5 83 16 111/73 (86) 98 Nasal Cannula 2.0 Notes Mental Status: alert / awake / arousable, participated in evaluation Pt Amnestic to Procedure: Yes Nausea / Vomiting: adequately controlled Pain: adequately controlled Airway Patency, RR, SpO2: stable & adequate BP & HR: stable & adequate Hydration State: stable & adequate Anesthetic Complications: no major complications apparent
[2017-09-07 15:13] VITALS: BP 114/74; PULSE 100; TEMP 36.7; O2SAT 93
--- NOTE | 2017-09-07 17:50 | Progress Note ---
Internal Med Progress Note Date of Service: Sep 07, 2017. Provider Documentation: SUBJECTIVE: was having fever and abdominal pain for 9 days at home vomited once s/p surgery for incarcerated recurrence of umbilical hernia. currently feeling better denies chest pain or sob no nausea no cough afebrile OBJECTIVE: Vital Signs-as noted below Exam: General-alert and oriented. Not in distress ENT-normal hearing. Neck-No neck masses Lungs-CTA b/l no wheezing or crackles Heart-S1 and S2 heard regular rate and rhythm no murmurs Abdomen-soft Bowels sounds present s/p ext laparotomy-dressing clean Extremities-no edema no erythema Neuro-alert and oriented moves extremities Lab data as noted below. ASSESSMENT & PLAN: Right apical infiltration: currently on invanz will monitor Free air in abdomen with peritonitis: Was evaluated by surgery in the emergency room and the patient will be going to operating room this afternoon s/p Exploratory laparotomy, repair of umbilical hernia, resection of umbilical hernia sac. on invanz as above ID on board. Cirrhosis of liver. Not having any acute symptoms. Has esophageal varices without bleeding and Portal Hypertension as per h and p on atenolol and PPI. f/u with GI Crohn's disease: No acute symptoms The CAT scan findings are suggestive of minor enteritis, seen by GI and likes to start on biologics as out patient Ankylosing Spondylitis No acute symptoms GERD without esophagitis Continue PPI. DVT prophylaxis with subcu heparin CODE STATUS-he will be a full code DVT PROPHYLAXIS Lovenox- refused DISPOSITION to be determined Vital Signs: Date Time Temp Pulse Resp B/P (MAP) Pulse Ox O2 Delivery O2 Flow Rate FiO2 09/07/17 16:00 Room Air 09/07/17 15:13 36.7 100 16 114/74 (87) 93 Room Air 09/07/17 11:23 37.0 98 18 112/73 (86) 92 Room Air 09/07/17 08:15 Room Air 09/07/17 07:30 36.6 92 18 109/70 (83) 95 Room Air 09/07/17 06:19 91 Room Air 09/07/17 03:25 36.5 83 16 111/73 (86) 98 Nasal Cannula 2.0 09/07/17 00:00 Nasal Cannula 2.0 09/06/17 22:40 36.6 90 16 105/66 (79) 96 Nasal Cannula 2.0 09/06/17 21:41 36.7 90 16 91/56 (68) 96 Nasal Cannula 2.0 09/06/17 20:46 36.6 100 17 113/71 (85) 95 Nasal Cannula 2.0 09/06/17 20:06 37.0 96 16 101/67 (78) 95 Nasal Cannula 2.0 09/06/17 19:40 94 Nasal Cannula 2.0 09/06/17 19:40 93 Nasal Cannula 2.0 09/06/17 19:40 36.9 99 16 104/69 (81) 93 Nasal Cannula 2.0 09/06/17 19:35 96 16 109/65 96 Nasal Cannula 3 09/06/17 19:20 99 16 115/68 96 Nasal Cannula 3 09/06/17 19:05 36.6 94 16 123/73 96 Nasal Cannula 3 09/06/17 18:55 90 16 120/80 98 Nasal Cannula 3 09/06/17 18:45 84 17 124/79 99 Oxymask 3 09/06/17 18:35 96 14 127/92 100 Oxymask 5 09/06/17 18:26 36.2 100 18 134/88 100 Oxymask 5 Lab Results: Results Past 24 Hours Test 09/06/17 18:30 09/07/17 03:08 09/07/17 05:58 09/07/17 07:30 Range/Units Hemoglobin 9.8 10.5 14.0-18.0 g/dL Hematocrit 28.4 31.0 42-52 % Sodium Level 133 137 136-145 mmol/L Potassium Level 3.5 4.2 3.5-5.1 mmol/L Chloride Level 104 108 98-107 mmol/L Carbon Dioxide Level 19 23 21-32 mmol/L Anion Gap 10.0 7.0 3-11 mmol/L Blood Urea Nitrogen 17 16 7-18 mg/dl Creatinine 0.82 0.77 0.60-1.40 mg/dl Est Creatinine Clear Calc Drug Dose 91.8 97.8 ml/min Estimated GFR () 115.4 118.4 Estimated GFR (Non- 99.6 102.2 BUN/Creatinine Ratio 20.3 20.8 10-20 Random Glucose 83 86 70-99 mg/dl Calcium Level 7.5 8.0 8.5-10.1 mg/dl Urine Color ORANGE Urine Appearance CLEAR CLEAR Urine pH 5.5 4.5-7.5 Urine Specific Greer 1.032 1.000-1.030 Urine Protein TRACE NEG Urine Glucose (UA) NEG NEG Urine Ketones TRACE NEG Urine Occult Blood NEG NEG Urine Nitrite POS NEG Urine Bilirubin 1+ NEG Urine Urobilinogen NEG NEG Urine Leukocyte Esterase SMALL NEG Urine WBC (Auto) 10-30 0-5 /hpf Urine RBC (Auto) 10-30 0-4 /hpf Urine Hyaline Casts (Auto) 10-30 0-5 /lpf Urine Epithelial Cells (Auto) >30 0-5 /lpf Urine Bacteria (Auto) NEG NEG Urine Renal Epithelial Cells 0-5 0-5 /lpf Bedside Glucose 80 70-99 mg/dl White Blood Count 11.92 4.8-10.8 K/uL Red Blood Count 3.95 4.7-6.1 M/uL Mean Corpuscular Volume 78.5 80-100 fL Mean Corpuscular Hemoglobin 26.6 25-34 pg Mean Corpuscular Hemoglobin Concent 33.9 32-36 g/dl Platelet Count 191 130-400 K/uL Mean Platelet Volume 10.1 7.4-10.4 fL Neutrophils (%) (Auto) 83.4 % Lymphocytes (%) (Auto) 7.3 % Monocytes (%) (Auto) 8.0 % Eosinophils (%) (Auto) 0.5 % Basophils (%) (Auto) 0.3 % Neutrophils # (Auto) 9.95 1.4-6.5 K/uL Lymphocytes # (Auto) 0.87 1.2-3.4 K/uL Monocytes # (Auto) 0.95 0.11-0.59 K/uL Eosinophils # (Auto) 0.06 0-0.5 K/uL Basophils # (Auto) 0.03 0-0.2 K/uL RDW Standard Deviation 50.4 36.4-46.3 fL RDW Coefficient of Variation 17.6 11.5-14.5 % Immature Granulocyte % (Auto) 0.5 % Immature Granulocyte # (Auto) 0.06 0.00-0.02 K/uL Total Bilirubin 1.7 0.2-1 mg/dl Aspartate Amino Transf (AST/SGOT) 20 15-37 U/L Alanine Aminotransferase (ALT/SGPT) 13 12-78 U/L Alkaline Phosphatase 74 45-117 U/L Total Protein 6.3 6.4-8.2 gm/dl Albumin 2.4 3.4-5.0 gm/dl Globulin 3.9 2.5-4.0 gm/dl Albumin/Globulin Ratio 0.6 0.9-2
[2017-09-07 23:20] VITALS: BP 118/74; PULSE 105; TEMP 36.9; O2SAT 91
[2017-09-08] MEDS: METOCLOPRAMIDE HCL INJ 5 MG/ML 2 ML VIAL IV. SCH ×4 (00:44→18:00)
[2017-09-08] MEDS: HYDROmorphone INJ 0.5 MG/0.5 ML SYR IV PRN ×3 (00:44→22:08)
[2017-09-08 06:45] LABS: HEMATOCRIT 31.3 % (42-52); HEMOGLOBIN 10.2 g/dL (14.0-18.0); MEAN CELL VOLUME 78.3 fL (80-100); MEAN CORPUSCULAR HEMOGLOBIN 25.5 pg (25-34); MEAN CORPUSCULAR HGB CONC 32.6 g/dl (32-36); MEAN PLATELET VOLUME 9.9 fL (7.4-10.4); PLATELET COUNT 267 K/uL (130-400); RED CELL DISTRIBUTION WIDTH CV 17.5 % (11.5-14.5); RED CELL DISTRIBUTION WIDTH SD 50.5 fL (36.4-46.3); WHITE BLOOD COUNT 14.14 K/uL (4.8-10.8)
[2017-09-08 07:17] VITALS: BP 124/78; PULSE 105; TEMP 36.8; O2SAT 97
[2017-09-08 07:20] LABS: ALBUMIN 2.4 gm/dl (3.4-5.0); CALCIUM 8.3 mg/dl (8.5-10.1); CREATININE 0.7 mg/dl (0.60-1.40); POTASSIUM 3.5 mmol/L (3.5-5.1)
[2017-09-08 07:23] LABS: TOTAL PROTEIN 6.3 gm/dl (6.4-8.2)
[2017-09-08] MEDS: PANTOprazole SOD 40 MG TAB PO SCH (08:59)
[2017-09-08] MEDS: ENOXAPARIN 40 MG/0.4 ML SYR SQ SCH (09:00)
[2017-09-08] MEDS: ERTAPENEM IV 1 GM in SODIUM CHLOR 0.9% AD-VAN 50ML 50 ML IV SCH (10:37)
[2017-09-08] MEDS ORDERED: NURSING VERBAL MED ORDER ONE (10:45)
[2017-09-08] MEDS ORDERED: MoRPHine SULFATE 2 MG/ML CARP IV PRN (11:00)
--- NOTE | 2017-09-08 11:46 | Surgery Progress Note ---
Surgery Progress Note Date of Service Sep 08, 2017. Subjective Post OP Day: 2 (s/p ex lap , repair of incarcerated infected umbilical hernia, abdominal wash out) would like to go home, bed is killing my back passing flatus no bowel movement has walked in the room not hallway pain controlled no nausea or vomiting Objective Vital Signs: Date Time Temp Pulse Resp B/P (MAP) Pulse Ox O2 Delivery O2 Flow Rate FiO2 09/08/17 07:17 36.8 105 18 124/78 (93) 97 Room Air 09/08/17 00:39 Room Air 09/07/17 23:20 36.9 105 18 118/74 (89) 91 Room Air 09/07/17 16:00 Room Air 09/07/17 15:13 36.7 100 16 114/74 (87) 93 Room Air 09/07/17 11:23 37.0 98 18 112/73 (86) 92 Room Air Physical Exam: APOLLO drainage (straw colored ascities fluid) General Appearance: WD/WN, no apparent distress Head: normocephalic, atraumatic Neck: trachea midline Respiratory/Chest: no respiratory distress, no accessory muscle use Abdomen: soft, no organomegaly, no pulsatile mass, + distended, + pertinent finding (ascites present) Incision(s): clean, dry (dressing clean and dry incision not inspected) Laboratory Results: Results Past 24 Hours Test 09/08/17 06:15 Range/Units White Blood Count 14.14 4.8-10.8 K/uL Red Blood Count 4.00 4.7-6.1 M/uL Hemoglobin 10.2 14.0-18.0 g/dL Hematocrit 31.3 42-52 % Mean Corpuscular Volume 78.3 80-100 fL Mean Corpuscular Hemoglobin 25.5 25-34 pg Mean Corpuscular Hemoglobin Concent 32.6 32-36 g/dl RDW Standard Deviation 50.5 36.4-46.3 fL RDW Coefficient of Variation 17.5 11.5-14.5 % Platelet Count 267 130-400 K/uL Mean Platelet Volume 9.9 7.4-10.4 fL Sodium Level 135 136-145 mmol/L Potassium Level 3.5 3.5-5.1 mmol/L Chloride Level 106 98-107 mmol/L Carbon Dioxide Level 20 21-32 mmol/L Anion Gap 9.0 3-11 mmol/L Blood Urea Nitrogen 12 7-18 mg/dl Creatinine 0.70 0.60-1.40 mg/dl Est Creatinine Clear Calc Drug Dose 107.5 ml/min Estimated GFR () 123.1 Estimated GFR (Non- 106.2 BUN/Creatinine Ratio 16.4 10-20 Random Glucose 86 70-99 mg/dl Calcium Level 8.3 8.5-10.1 mg/dl Total Bilirubin 1.7 0.2-1 mg/dl Aspartate Amino Transf (AST/SGOT) 17 15-37 U/L Alanine Aminotransferase (ALT/SGPT) 14 12-78 U/L Alkaline Phosphatase 76 45-117 U/L Total Protein 6.3 6.4-8.2 gm/dl Albumin 2.4 3.4-5.0 gm/dl Globulin 3.9 2.5-4.0 gm/dl Albumin/Globulin Ratio 0.6 0.9-2 Assessment & Plan POD # 2 s/p ex lap, repair of incarcerated hernia, abdominal washout, placement of surgical drains x 2 -vitals stable, afebrile post op - Leukocytosis today of 14k - abdominal pain controlled, moderate distention due to ascites with apollo drains putting out moderate amounts of ascites fluid - no nausea or vomiting - passing flatus - abdominal culture showing alpha strep not enterococcus Plan: Continue current pain management, once taking po well may start PO Percocet Advance diet to clear liquids, low sodium, heart healthy continue apollo drain to bulb suction continue IV Abx, await ID recs Continue IV Zofran as needed for nausea encourage OOB to chair and ambulate hallway Incentive spirometry EHOB mattress repeat am labs Outpatient follow up with GI in regards to Crohn's management/stricture/ starting biologic Patient has extensive ascites,may need Pleurx catheter for drainage or paracentesis in the future, should follow up with GI outpatient Continue current medical management [facility] surgery covering this weekend Dr. Watson has seen and examined patient, agrees with above
[2017-09-08] MEDS ORDERED: OXYCODONE/ACETAMINOPHEN 5-325 TAB PO PRN ×2 (12:00)
[2017-09-08] MEDS ORDERED: OXYCODONE HCL IR 5 MG TAB (IMMEDIATE RELEASE) PO PRN (12:15)
--- NOTE | 2017-09-08 12:15 | Consultant Recommendations ---
[employer] Recommendations Date of Service Sep 08, 2017. [employer] Recommendations No heavy lifting over 10 pounds for 6 weeks No strenuous activity until cleared by surgeon No submerging incision underwater for 2 weeks (no bathing, swimming, or hot tubs ) No driving while taking narcotic pain medication or until you are pain free You may shower when you get home. Replace dressing daily or as needed to keep clean and dry Walking and light activity is encouraged to prevent blood clots from forming You will be given narcotic pain medication as needed for moderate to severe pain. This medication may make you drowsy and can cause constipation. To combat constipation, drink plenty of water daily, you may take OTC stool softener such as Colace, gentle laxative or prune juice. Follow-up in surgical office in 2 weeks, please call office at [phone] to make an appointment Per GI recommendations : Cirrhosis Management - No ETOH - Less than 2G of sodium daily - Less than 2G of tylenol daily Crohn's Disease - Outpatient GI follow up to discuss restarting biologic with his previous GI provider - Outpatient colorectal appointment to discuss surgical options for strictures
[2017-09-08] MEDS ORDERED: OXYC1TAB3 PO (12:18)
[2017-09-08 15:02] VITALS: BP 103/66; PULSE 89; TEMP 36.5; O2SAT 93
--- NOTE | 2017-09-08 15:47 | Infectious Disease Progress Nt ---
Progress Note Date of Service Sep 08, 2017. Subjective Pt evaluation today including: conversation w/ patient, physical exam, chart review, lab review, review of studies, conversation w/ business system consultant, review of inpatient medication list Patient feeling better, still with some abdominal pain. Remains afebrile. No other new complaints. Tolerating antibiotics without apparent difficulty. Peritoneal cultures growing streptococcal species. All Other Systems: Reviewed and Negative Medications Current Inpatient Medications Medications (Trade) Dose Ordered Sig/Ronaldo Route Start Time Stop Time Status Last Admin Dose Admin Ioversol (Optiray 320) 100 ml UD PRN IV 09/06/17 13:15 09/10/17 13:14 Ondansetron HCl (Zofran Inj) 4 mg Q6H PRN IV 09/06/17 14:30 10/06/17 14:29 Atenolol (Tenormin Tab) 25 mg QAM PO 09/07/17 09:00 10/07/17 08:59 09/08/17 08:59 25 MG Pantoprazole Sodium (Protonix Tab) 40 mg QAM PO 09/07/17 09:00 10/07/17 08:59 09/08/17 08:59 40 MG Hydrocodone Bit/ Homatropine Methylb (Hycodan Syrup) 5 ml Q6H PRN PO 09/06/17 14:30 09/20/17 14:29 Enoxaparin Sodium (Lovenox Inj) 40 mg QAM SQ 09/07/17 09:00 10/07/17 08:59 09/08/17 09:00 40 MG Hydromorphone HCl (Dilaudid Inj) 0.5 mg Q3HWA PRN IV 09/06/17 19:00 09/20/17 18:59 09/08/17 14:19 0.5 MG Ertapenem 1 gm/ Sodium Chloride 50 ml @ 120 mls/hr Q24H IV 09/07/17 10:00 09/17/17 09:59 09/08/17 10:37 120 MLS/HR Metoclopramide HCl (Reglan Inj) 10 mg Q6H IV. 09/07/17 12:00 10/07/17 11:59 09/08/17 12:41 10 MG Morphine Sulfate (MoRPHine SULFATE INJ) 2 mg Q3HWA PRN IV 09/08/17 11:00 09/22/17 10:59 09/08/17 10:58 2 MG Oxycodone HCl (Roxicodone Immediate Rel Tab) 5 mg Q4H PRN PO 09/08/17 12:15 09/22/17 12:14 Objective Vital Signs Date Time Temp Pulse Resp B/P (MAP) Pulse Ox O2 Delivery O2 Flow Rate FiO2 09/08/17 15:02 36.5 89 16 103/66 (78) 93 Room Air 09/08/17 07:30 Room Air 09/08/17 07:17 36.8 105 18 124/78 (93) 97 Room Air 09/08/17 00:39 Room Air 09/07/17 23:20 36.9 105 18 118/74 (89) 91 Room Air 09/07/17 16:00 Room Air Physical Exam General Appearance: WD/WN, no apparent distress Eyes: normal inspection, EOMI, sclerae normal ENT: normal ENT inspection, hearing grossly normal, pharynx normal Neck: supple, no adenopathy, thyroid normal, trachea midline Respiratory/Chest: chest non-tender, lungs clear, normal breath sounds, no respiratory distress Cardiovascular: regular rate, rhythm, no gallop, no murmur Abdomen: normal bowel sounds, soft, no organomegaly, + tenderness Extremities: non-tender, no pedal edema, normal capillary refill Neurologic/Psychiatric: alert, oriented x 3 Skin: normal color, warm/dry, no rash Lymphatic: no adenopathy Laboratory Results RUN DATE: 09/08/17 [facility] LAB PAGE 1 RUN TIME: 8730 Specimen Inquiry PATIENT: EPI YAÑEZ LOC: ADONIS U # : [id number] AGE/SX: 57/M ROOM: [facility] REG : 09/06/[address]: Reji Epperson MD : 1960 BED: 2 DIS : STATUS: ADM IN TLOC: SPEC #: [id number] CATERINA: 09/06/17 STATUS: RES REQ #: [id number] RECD: 09/06/[address]: Reji Epperson MD SOURCE: DRAIN-DEEP ENTR: 09/06/[address]: Mary Díaz M.D. SPDESC: Jovany Gordon M.D. Suvock, Emily T., DO Schreckengost, Janea ., LEDA ORDERED: AER/FANTA CULTSMR Procedure Result Verified Site GRAM STAIN Final 09/07/17-0981 RESULT MANY POLYS NO ORGANISMS SEEN OR AER/FANTA CULT Preliminary 09/08/17-142 Organism 1 ALPHA STREP. NOT ENTEROCOCCUS QUANITY FEW SENS NO SENSITIVITY TO FOLLOW +MIXWOUND PLUS LOW COUNTS OF PROBABLE SKIN ANGELES Last 24 Hours Test 09/08/17 06:15 White Blood Count 14.14 K/uL Red Blood Count 4.00 M/uL Hemoglobin 10.2 g/dL Hematocrit 31.3 % Mean Corpuscular Volume 78.3 fL Mean Corpuscular Hemoglobin 25.5 pg Mean Corpuscular Hemoglobin Concent 32.6 g/dl RDW Standard Deviation 50.5 fL RDW Coefficient of Variation 17.5 % Platelet Count 267 K/uL Mean Platelet Volume 9.9 fL Sodium Level 135 mmol/L Potassium Level 3.5 mmol/L Chloride Level 106 mmol/L Carbon Dioxide Level 20 mmol/L Anion Gap 9.0 mmol/L Blood Urea Nitrogen 12 mg/dl Creatinine 0.70 mg/dl Est Creatinine Clear Calc Drug Dose 107.5 ml/min Estimated GFR () 123.1 Estimated GFR (Non- 106.2 BUN/Creatinine Ratio 16.4 Random Glucose 86 mg/dl Calcium Level 8.3 mg/dl Total Bilirubin 1.7 mg/dl Aspartate Amino Transf (AST/SGOT) 17 U/L Alanine Aminotransferase (ALT/SGPT) 14 U/L Alkaline Phosphatase 76 U/L Total Protein 6.3 gm/dl Albumin 2.4 gm/dl Globulin 3.9 gm/dl Albumin/Globulin Ratio 0.6 Assessment and Plan 57 yo male with cirrhosis, Crohn's disease now s/p emergency laparotomy for incarcerated hernia, perforation and peritonitis. Patient improving, culture with Streptococcus. Could consider change to oral rx with levofloxacin and metronidazole for 7-10 days.
--- NOTE | 2017-09-08 16:48 | Progress Note ---
Internal Med Progress Note Date of Service: Sep 08, 2017. Provider Documentation: SUBJECTIVE: has aoin at surgery site no nausea no sob or chest pain afebrile tolerating liquid diet likes to go home in am OBJECTIVE: Vital Signs-as noted below Exam: General-alert and oriented. Not in distress ENT-normal hearing. Neck-No neck masses Lungs-CTA b/l no wheezing or crackles Heart-S1 and S2 heard regular rate and rhythm no murmurs Abdomen-soft Bowels sounds present s/p ext laparotomy-dressing clean Extremities-no edema no erythema Neuro-alert and oriented moves extremities Lab data as noted below. ASSESSMENT & PLAN: Right apical infiltration: currently on invanz to start Levaquin in am will monitor Free air in abdomen with peritonitis: Was evaluated by surgery in the emergency room and the patient will be going to operating room this afternoon s/p Exploratory laparotomy, repair of umbilical hernia, resection of umbilical hernia sac. cx growing alpha streptococcus Id recommends po Levaquin and Flagyl for 7-10 days Cirrhosis of liver. Not having any acute symptoms. Has esophageal varices without bleeding and Portal Hypertension as per h and p on atenolol and PPI. f/u with GI Crohn's disease: No acute symptoms The CAT scan findings are suggestive of minor enteritis, seen by GI and likes to start on biologics as out patient Ankylosing Spondylitis No acute symptoms GERD without esophagitis Continue PPI. CODE STATUS-he will be a full code DVT PROPHYLAXIS Lovenox- refused DISPOSITION possible d/.c in 1-2 days ambulate in hallways Vital Signs: Date Time Temp Pulse Resp B/P (MAP) Pulse Ox O2 Delivery O2 Flow Rate FiO2 09/08/17 16:00 Room Air 09/08/17 15:02 36.5 89 16 103/66 (78) 93 Room Air 09/08/17 07:30 Room Air 09/08/17 07:17 36.8 105 18 124/78 (93) 97 Room Air 09/08/17 00:39 Room Air 09/07/17 23:20 36.9 105 18 118/74 (89) 91 Room Air Lab Results: Results Past 24 Hours Test 09/08/17 06:15 Range/Units White Blood Count 14.14 4.8-10.8 K/uL Red Blood Count 4.00 4.7-6.1 M/uL Hemoglobin 10.2 14.0-18.0 g/dL Hematocrit 31.3 42-52 % Mean Corpuscular Volume 78.3 80-100 fL Mean Corpuscular Hemoglobin 25.5 25-34 pg Mean Corpuscular Hemoglobin Concent 32.6 32-36 g/dl RDW Standard Deviation 50.5 36.4-46.3 fL RDW Coefficient of Variation 17.5 11.5-14.5 % Platelet Count 267 130-400 K/uL Mean Platelet Volume 9.9 7.4-10.4 fL Sodium Level 135 136-145 mmol/L Potassium Level 3.5 3.5-5.1 mmol/L Chloride Level 106 98-107 mmol/L Carbon Dioxide Level 20 21-32 mmol/L Anion Gap 9.0 3-11 mmol/L Blood Urea Nitrogen 12 7-18 mg/dl Creatinine 0.70 0.60-1.40 mg/dl Est Creatinine Clear Calc Drug Dose 107.5 ml/min Estimated GFR () 123.1 Estimated GFR (Non- 106.2 BUN/Creatinine Ratio 16.4 10-20 Random Glucose 86 70-99 mg/dl Calcium Level 8.3 8.5-10.1 mg/dl Total Bilirubin 1.7 0.2-1 mg/dl Aspartate Amino Transf (AST/SGOT) 17 15-37 U/L Alanine Aminotransferase (ALT/SGPT) 14 12-78 U/L Alkaline Phosphatase 76 45-117 U/L Total Protein 6.3 6.4-8.2 gm/dl Albumin 2.4 3.4-5.0 gm/dl Globulin 3.9 2.5-4.0 gm/dl Albumin/Globulin Ratio 0.6 0.9-2
[2017-09-08] MEDS: METRONIDAZOLE 500 MG TAB PO SCH (20:43)
[2017-09-08 23:16] VITALS: BP 108/65; PULSE 85; TEMP 36.9; O2SAT 94
[2017-09-09] MEDS: METOCLOPRAMIDE HCL INJ 5 MG/ML 2 ML VIAL IV. SCH ×2 (00:09→05:45)
[2017-09-09 06:35] LABS: HEMOGLOBIN 10.2 g/dL (14.0-18.0); MEAN CELL VOLUME 76.1 fL (80-100); MEAN CORPUSCULAR HEMOGLOBIN 25.9 pg (25-34); MEAN PLATELET VOLUME 9.3 fL (7.4-10.4); PLATELET COUNT 252 K/uL (130-400); RED CELL DISTRIBUTION WIDTH CV 17.4 % (11.5-14.5); WHITE BLOOD COUNT 11.57 K/uL (4.8-10.8)
[2017-09-09] MEDS ORDERED: NURSING VERBAL MED ORDER ONE (06:45)
[2017-09-09 07:07] LABS: CALCIUM 7.9 mg/dl (8.5-10.1); CREATININE 0.64 mg/dl (0.60-1.40); POTASSIUM 3.2 mmol/L (3.5-5.1)
[2017-09-09 07:12] VITALS: BP 112/69; PULSE 80; TEMP 36.6; O2SAT 97
[2017-09-09] MEDS ORDERED: POTASSIUM CHLORIDE 20 MEQ TABCR PO ONE (07:30)
[2017-09-09] MEDS: METRONIDAZOLE 500 MG TAB PO SCH ×3 (09:20→20:40)
[2017-09-09] MEDS: PANTOprazole SOD 40 MG TAB PO SCH (09:21)
[2017-09-09] MEDS: ENOXAPARIN 40 MG/0.4 ML SYR SQ SCH (09:22)
[2017-09-09] MEDS: HYDROmorphone INJ 0.5 MG/0.5 ML SYR IV PRN ×3 (09:26→20:13)
[2017-09-09] MEDS: LEVOFLOXACIN 500 MG TAB PO SCH (11:43)
--- NOTE | 2017-09-09 13:28 | SURGERY PROGRESS NOTE ---
DATE: 09/09/[address] Watson. Lm is resting comfortably. He would like to have more to eat. He is 3rd postoperative day status post exploratory lap, repair of umbilical hernia, resection of umbilical hernial sac by Dr. Watson. His last vitals showed a temperature 36.6, pulse 80, respirations 16, blood pressure 112/69, O2 sats 97 on room air. I&O, he had 250 urine overnight. He has about 600 mL of drainage from his Gary drainage which is serous, almost ascitic fluid. His abdomen is softly distended. He has not moved his bowels yet. He is on some liquids. He denies passing any flatus. At this point, I will probably keep him on the same until some GI function is appreciated. CHINO
[2017-09-09 15:18] VITALS: BP 98/63; PULSE 82; TEMP 36.4; O2SAT 96
[2017-09-09 15:45] VITALS: O2SAT 96
--- NOTE | 2017-09-09 17:19 | Progress Note ---
Internal Med Progress Note Date of Service: Sep 09, 2017. Provider Documentation: SUBJECTIVE: has some pain at surgery site on liquid diet no sob afebrile likes to go home no nausea OBJECTIVE: Vital Signs-as noted below Exam: General-alert and oriented. Not in distress ENT-normal hearing. Neck-No neck masses Lungs-CTA b/l no wheezing or crackles Heart-S1 and S2 heard regular rate and rhythm no murmurs Abdomen-soft Bowels sounds present s/p ext laparotomy-dressing clean Extremities-no edema no erythema Neuro-alert and oriented moves extremities Lab data as noted below. ASSESSMENT & PLAN: Right apical infiltration: on Levaquin stable Free air in abdomen with peritonitis: Was evaluated by surgery in the emergency room and the patient will be going to operating room this afternoon s/p Exploratory laparotomy, repair of umbilical hernia, resection of umbilical hernia sac. cx growing alpha streptococcus Id recommends po Levaquin and Flagyl for 7-10 days diet as per surgery stable Cirrhosis of liver. Not having any acute symptoms. Has esophageal varices without bleeding and Portal Hypertension as per h and p on atenolol and PPI. Needs close f/u with GI Crohn's disease: No acute symptoms The CAT scan findings are suggestive of minor enteritis, seen by GI and likes to start on biologics as out patient Ankylosing Spondylitis No acute symptoms GERD without esophagitis Continue PPI. CODE STATUS-he will be a full code DVT PROPHYLAXIS Lovenox- refused scds DISPOSITION possible d/.c in 1-2 days ambulate in hallways Vital Signs: Date Time Temp Pulse Resp B/P (MAP) Pulse Ox O2 Delivery O2 Flow Rate FiO2 09/09/17 15:18 36.4 82 16 98/63 (75) 96 Room Air 09/09/17 07:35 Room Air 09/09/17 07:12 36.6 80 16 112/69 (83) 97 Room Air 09/09/17 00:07 Room Air 09/08/17 23:16 36.9 85 14 108/65 (79) 94 Room Air Lab Results: Results Past 24 Hours Test 09/09/17 06:25 Range/Units White Blood Count 11.57 4.8-10.8 K/uL Red Blood Count 3.94 4.7-6.1 M/uL Hemoglobin 10.2 14.0-18.0 g/dL Hematocrit 30.0 42-52 % Mean Corpuscular Volume 76.1 80-100 fL Mean Corpuscular Hemoglobin 25.9 25-34 pg Mean Corpuscular Hemoglobin Concent 34.0 32-36 g/dl RDW Standard Deviation 49.0 36.4-46.3 fL RDW Coefficient of Variation 17.4 11.5-14.5 % Platelet Count 252 130-400 K/uL Mean Platelet Volume 9.3 7.4-10.4 fL Sodium Level 133 136-145 mmol/L Potassium Level 3.2 3.5-5.1 mmol/L Chloride Level 104 98-107 mmol/L Carbon Dioxide Level 26 21-32 mmol/L Anion Gap 3.0 3-11 mmol/L Blood Urea Nitrogen 9 7-18 mg/dl Creatinine 0.64 0.60-1.40 mg/dl Est Creatinine Clear Calc Drug Dose 117.6 ml/min Estimated GFR () 127.8 Estimated GFR (Non- 110.2 BUN/Creatinine Ratio 14.2 10-20 Random Glucose 118 70-99 mg/dl Calcium Level 7.9 8.5-10.1 mg/dl
[2017-09-09 23:27] VITALS: BP 98/62; PULSE 87; TEMP 36.8; O2SAT 92
[2017-09-10 07:09] VITALS: BP 110/73; PULSE 84; TEMP 36.6; O2SAT 96
[2017-09-10] MEDS: HYDROmorphone INJ 0.5 MG/0.5 ML SYR IV PRN (08:05)
[2017-09-10 08:24] LABS: CREATININE 0.66 mg/dl (0.60-1.40); POTASSIUM 3.9 mmol/L (3.5-5.1)
[2017-09-10] MEDS: METRONIDAZOLE 500 MG TAB PO SCH ×2 (08:47→13:50)
[2017-09-10] MEDS: PANTOprazole SOD 40 MG TAB PO SCH (08:48)
[2017-09-10] MEDS: ENOXAPARIN 40 MG/0.4 ML SYR SQ SCH (08:49)
[2017-09-10] MEDS: LEVOFLOXACIN 500 MG TAB PO SCH (11:23)
--- NOTE | 2017-09-10 11:25 | Surgery Progress Note ---
Surgery Progress Note Date of Service Sep 10, 2017. Subjective Post OP Day: 4 + feeling well, + ambulating, + bowel movement, + flatus, + pain controlled, No nausea, No vomiting Objective Vital Signs: Date Time Temp Pulse Resp B/P (MAP) Pulse Ox O2 Delivery O2 Flow Rate FiO2 09/10/17 07:09 36.6 84 15 110/73 (85) 96 Room Air 09/10/17 00:22 Room Air 09/09/17 23:27 36.8 87 14 98/62 (74) 92 Room Air 09/09/17 15:45 96 Room Air 09/09/17 15:18 36.4 82 16 98/63 (75) 96 Room Air Physical Exam: CHANDRA drainage (CHANDRA #1- 460cc, CHANDRA #2 205cc (serous, possibly ascitic fluid) ) General Appearance: WD/WN, no apparent distress Head: normocephalic, atraumatic Abdomen: + tenderness (very mild tenderness at incision site. Dressing changed -incision intact, vania in place, no evidence of infection. ) Incision(s): clean, dry, intact Laboratory Results: Results Past 24 Hours Test 09/10/17 07:35 Range/Units Sodium Level 134 136-145 mmol/L Potassium Level 3.9 3.5-5.1 mmol/L Chloride Level 103 98-107 mmol/L Carbon Dioxide Level 26 21-32 mmol/L Anion Gap 6.0 3-11 mmol/L Blood Urea Nitrogen 6 7-18 mg/dl Creatinine 0.66 0.60-1.40 mg/dl Est Creatinine Clear Calc Drug Dose 114.1 ml/min Estimated GFR () 126.1 Estimated GFR (Non- 108.8 BUN/Creatinine Ratio 9.5 10-20 Random Glucose 109 70-99 mg/dl Calcium Level 8.0 8.5-10.1 mg/dl Magnesium Level 1.6 1.8-2.4 mg/dl Assessment & Plan POD #4- s/p Ex Lap with repair of umbilical hernia Patient seen and examined with Dr. Velasco. Afebrile, vital signs stable. Patient doing well- very eager to be discharged today. Pain controlled. +BM yesterday, passing flatus. Tolerating clear liquids, will advance to full liquids for breakfast and then advance as tolerated. Patient ok for discharge. Drains to stay in. Patient to follow-up with Dr. Watson in clinic. Discharge per hospitalist team. Spoke with Dr. Epperson, he is aware.
[2017-09-10] MEDS ORDERED: MAGNESIUM SULFATE 1GM / D5W 1 GM in PREMIXED IN D5W 100 ML IV ONE (11:45)
[2017-09-10 11:51] VITALS: BP 110/73; PULSE 84; TEMP 36.6; O2SAT 96
[2017-09-10] MEDS ORDERED: LVQ500 PO (12:45)
[2017-09-10] MEDS ORDERED: LCTX PO (12:45)
[2017-09-10] MEDS ORDERED: MTR500 PO (12:45)
--- NOTE | 2017-09-10 12:49 | Discharge Instructions ---
Discharge Instructions Date of Service Sep 10, 2017. Admission Reason for Admission: Pneumonia Discharge Discharge Diagnosis / Problem: PNEUMONIA.repair of umbilical hernia, PERITONITIS Discharge Goals Goal(s): Decrease discomfort, Improve function Activity Recommendations Activity Limitations: resume your previous activity . Instructions / Follow-Up Instructions / Follow-Up FOLLOWUP WITH FAMILY DOCTOR ON August AT 10:25AM( PATIENT MAY BE CALLED WITH EARLIER APPOINTMENT). FOLLOWUP WITH GENERAL SURGERY IN 2 WEEKS(PH NO:[phone]) FOLLOWUP WITH GI IN 1-2 WEEKS. ( FOR CROHN'S AND CIRRHOSIS) AVOID FPC USE OF NSAID'S LIKE MELOXICAM, IBUPROFEN, MOTRIN, ALEVE, NAPROSYN THEY CAN CAUSE GASTRIC ULCERS AND KIDNEY FAILURE AND HEART ATTACKS Welder Assembler Recommendations No heavy lifting over 10 pounds for 6 weeks No strenuous activity until cleared by surgeon No submerging incision underwater for 2 weeks (no bathing, swimming, or hot tubs ) No driving while taking narcotic pain medication or until you are pain free You may shower when you get home. Replace dressing daily or as needed to keep clean and dry Walking and light activity is encouraged to prevent blood clots from forming You will be given narcotic pain medication as needed for moderate to severe pain. This medication may make you drowsy and can cause constipation. To combat constipation, drink plenty of water daily, you may take OTC stool softener such as Colace, gentle laxative or prune juice. Follow-up in surgical office in 2 weeks, please call office at [phone] to make an appointment Per GI recommendations : Cirrhosis Management - No ETOH - Less than 2G of sodium daily - Less than 2G of tylenol daily Crohn's Disease - Outpatient GI follow up to discuss restarting biologic with his previous GI provider - Outpatient colorectal appointment to discuss surgical options for strictures Current Hospital Diet Patient's current hospital diet: Low Sodium Diet (2gm Na), AHA Diet (Heart Healthy) Discharge Diet Recommended Diet: AHA Diet (Heart Healthy), Low Sodium Diet (2gm Na) Procedures Procedures Performed: exploratory laparotomy, repair umbilical hernia, resection umbilical hernia sac Pending Studies Studies pending at discharge: no Medical Emergencies . Who to Call and When: Medical Emergencies: If at any time you feel your situation is an emergency, please call 911 immediately. . Non-Emergent Contact Non-Emergency issues call your: Primary Care Provider . . "Provider Documentation" section prepared by Reji Epperson. . Welder Assembler Recommendations Welder Assembler Recommendations: No heavy lifting over 10 pounds for 6 weeks No strenuous activity until cleared by surgeon No submerging incision underwater for 2 weeks (no bathing, swimming, or hot tubs ) No driving while taking narcotic pain medication or until you are pain free You may shower when you get home. Replace dressing daily or as needed to keep clean and dry Walking and light activity is encouraged to prevent blood clots from forming You will be given narcotic pain medication as needed for moderate to severe pain. This medication may make you drowsy and can cause constipation. To combat constipation, drink plenty of water daily, you may take OTC stool softener such as Colace, gentle laxative or prune juice. Follow-up in surgical office in 2 weeks, please call office at [phone] to make an appointment Per GI recommendations : Cirrhosis Management - No ETOH - Less than 2G of sodium daily - Less than 2G of tylenol daily Crohn's Disease - Outpatient GI follow up to discuss restarting biologic with his previous GI provider - Outpatient colorectal appointment to discuss surgical options for strictures
--- NOTE | 2017-09-10 18:24 | Progress Note ---
Internal Med Progress Note Date of Service: Sep 10, 2017. Provider Documentation: SUBJECTIVE: no abdominal pain or nausea tolerating regular diet moved bowels no sob afebrile ambulating fine wants to go home OBJECTIVE: Vital Signs-as noted below Exam: General-alert and oriented. Not in distress ENT-normal hearing. Neck-No neck masses Lungs-CTA b/l no wheezing or crackles Heart-S1 and S2 heard regular rate and rhythm no murmurs Abdomen-soft Bowels sounds present s/p ext laparotomy-dressing clean. drains present Extremities-no edema no erythema Neuro-alert and oriented moves extremities Lab data as noted below. ASSESSMENT & PLAN: Right apical infiltration: on Levaquin d/c on po levaquin Free air in abdomen with peritonitis: Was evaluated by surgery in the emergency room and the patient will be going to operating room this afternoon s/p Exploratory laparotomy, repair of umbilical hernia, resection of umbilical hernia sac. cx growing alpha streptococcus Id recommends po Levaquin and Flagyl for 7-10 days diet as per surgery-tolerating regular diet Surgery wants drains in place and wants to see him in 2 weeks and ok for discharge Cirrhosis of liver. Not having any acute symptoms. Has esophageal varices without bleeding and Portal Hypertension as per h and p on atenolol and PPI. low sodium diet Needs close f/u with GI Crohn's disease: No acute symptoms The CAT scan findings are suggestive of minor enteritis, seen by GI and likes to start on biologics as out patient may also need to followup with colorectal surgery for strictures Ankylosing Spondylitis No acute symptoms GERD without esophagitis Continue PPI. Discharged home Vital Signs: Date Time Temp Pulse Resp B/P (MAP) Pulse Ox O2 Delivery O2 Flow Rate FiO2 09/10/17 11:51 36.6 84 15 96 Room Air 09/10/17 07:45 Room Air 09/10/17 07:09 36.6 84 15 110/73 (85) 96 Room Air 09/10/17 00:22 Room Air 09/09/17 23:27 36.8 87 14 98/62 (74) 92 Room Air Lab Results: Results Past 24 Hours Test 09/10/17 07:35 Range/Units Sodium Level 134 136-145 mmol/L Potassium Level 3.9 3.5-5.1 mmol/L Chloride Level 103 98-107 mmol/L Carbon Dioxide Level 26 21-32 mmol/L Anion Gap 6.0 3-11 mmol/L Blood Urea Nitrogen 6 7-18 mg/dl Creatinine 0.66 0.60-1.40 mg/dl Est Creatinine Clear Calc Drug Dose 114.1 ml/min Estimated GFR () 126.1 Estimated GFR (Non- 108.8 BUN/Creatinine Ratio 9.5 10-20 Random Glucose 109 70-99 mg/dl Calcium Level 8.0 8.5-10.1 mg/dl Magnesium Level 1.6 1.8-2.4 mg/dl
--- NOTE | 2017-09-10 18:31 | Discharge Summary ---
Discharge Summary Date of Service Sep 10, 2017. Discharge Summary Admission Date: Sep 06, 2017 at 14:28 Discharge Date: Sep 10, 2017 Discharge Disposition: Home Principal Diagnosis: PNEUMONIA PERITONITIS repair of umbilical hernia, resection of umbilical hernia sac. 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 Trace intraperitoneal free air is suggested below the right hemidiaphragm. This is concerning for a perforated viscus given the reported history of abdominal pain. 2. Patchy airspace opacities are suggestive the right apex. Correlate clinically for evidence of a mild infectious/inflammatory pneumonitis. Radiographic follow-up to resolution is recommended. CT ABD/PELVIS: 1. Cirrhosis with portal hypertension evidenced by varices and splenomegaly. 2. Multifocal small bowel wall thickening with intervening small bowel distention. This appearance is nonspecific and can be seen in the setting of Crohn's disease, multifocal strictures in the setting of post radiation change, or potentially portal enteropathy. An infectious enteritis is considered less likely. 3. No small bowel obstruction. 4. Small volume abdominopelvic ascites with suggestion of peritonitis. 5. Groundglass opacities in the right upper lobe raises concern for infection/pneumonia. s/p Exploratory laparotomy, repair of umbilical hernia, resection of umbilical hernia sac. Consultations: GENERAL SURGERY GI Medication Reconciliation New Medications: Lactobacillus Acidophilus (Lactinex) Tab 2 TAB PO BID for 10 Days, TAB Oxycodone Immediate Rel Tab (Roxicodone Ir) 5 Mg Tab 5 MG PO Q4H PRN for Severe Pain, #18 TAB Levofloxacin (Levofloxacin) 500 Mg Tab 500 MG PO DAILY@11 for 7 Days, TAB Metronidazole (Metronidazole) 500 Mg Tab 500 MG PO TID for 7 Days, #21 TAB Continued Medications: Atenolol (Tenormin) 25 Mg Tab 25 MG PO QAM Pantoprazole Sodium (Protonix) 40 Mg Tab 40 MG PO QAM, TAB TAKE THIS MEDICATION 30 MINUTES BEFORE FIRST MEAL OF THE DAY. Discontinued Medications: Meloxicam (Mobic) 15 Mg Tab 15 MG PO QAM, TAB Admission Information HPI (per Admitting provider): He is a 57-year-old male with significant past medical history of cirrhosis of liver and Crohn's disease apparently has been complaining of URI symptoms 9 days back. The first 2 days of the symptoms he was having fever and occasional chills. Subsequently he started to have cough with pain involving the lower chest wall pain on either side. For the last few days he has been having pain in the abdomen associated with vomiting and he fails that he has torn his mesh in the hernia repair site. He has been running a temperature up to 10 3F at home. He denies to have any chest pain any palpitation or any shortness of breath. He was afebrile in the ER with a chest x-ray finding of right upper lobe infiltration and a CAT scan of the abdomen and pelvis did show possible small intraperitoneal abscess. Surgical service saw him in the emergency room and will take him to OR this afternoon. The patient was admitted on the medical service. Physical Exam (per Admitting): General Appearance: + mild distress Head: normocephalic Eyes: normal inspection ENT: normal ENT inspection Neck: supple Respiratory/Chest: + respiratory distress, + wheezing (Right Upper Lung) Cardiovascular: regular rate, rhythm Abdomen/GI: soft, + tenderness, + hernia (Umbilical with a gape underneath) Genitourinary - Male: normal male genitalia Back: normal inspection Extremities/Musculoskelatal: normal inspection Neurologic/Psych: no motor/sensory deficits, alert, normal mood/affect, oriented x 3 Skin: normal color Hospital Course Right apical infiltration: on Levaquin d/c on po levaquin Free air in abdomen with peritonitis: Was evaluated by surgery in the emergency room and the patient will be going to operating room this afternoon s/p Exploratory laparotomy, repair of umbilical hernia, resection of umbilical hernia sac. cx growing alpha streptococcus Id recommends po Levaquin and Flagyl for 7-10 days diet as per surgery-tolerating regular diet Surgery wants drains in place and wants to see him in 2 weeks and ok for discharge Cirrhosis of liver. Not having any acute symptoms. Has esophageal varices without bleeding and Portal Hypertension as per h and p on atenolol and PPI. low sodium diet Needs close f/u with GI Crohn's disease: No acute symptoms The CAT scan findings are suggestive of minor enteritis, seen by GI and likes to start on biologics as out patient may also need to followup with colorectal surgery for strictures Ankylosing Spondylitis No acute symptoms GERD without esophagitis Continue PPI. Discharged home Total time spent on discharge = 35MINUTES This includes examination of the patient, discharge planning, medication reconciliation, and communication with other providers. Discharge Instructions Discharge Instructions Date of Service Sep 10, 2017. Admission Reason for Admission: Pneumonia Discharge Discharge Diagnosis / Problem: PNEUMONIA.repair of umbilical hernia, PERITONITIS Discharge Goals Goal(s): Decrease discomfort, Improve function Activity Recommendations Activity Limitations: resume your previous activity . Instructions / Follow-Up Instructions / Follow-Up FOLLOWUP WITH FAMILY DOCTOR ON August AT 10:25AM( PATIENT MAY BE CALLED WITH EARLIER APPOINTMENT). FOLLOWUP WITH GENERAL SURGERY IN 2 WEEKS(PH NO:[phone]) FOLLOWUP WITH GI IN 1-2 WEEKS. ( FOR CROHN'S AND CIRRHOSIS) AVOID GROUP HOME USE OF NSAID'S LIKE MELOXICAM, IBUPROFEN, MOTRIN, ALEVE, NAPROSYN THEY CAN CAUSE GASTRIC ULCERS AND KIDNEY FAILURE AND HEART ATTACKS Seating Captain Recommendations No heavy lifting over 10 pounds for 6 weeks No strenuous activity until cleared by surgeon No submerging incision underwater for 2 weeks (no bathing, swimming, or hot tubs ) No driving while taking narcotic pain medication or until you are pain free You may shower when you get home. Replace dressing daily or as needed to keep clean and dry Walking and light activity is encouraged to prevent blood clots from forming You will be given narcotic pain medication as needed for moderate to severe pain. This medication may make you drowsy and can cause constipation. To combat constipation, drink plenty of water daily, you may take OTC stool softener such as Colace, gentle laxative or prune juice. Follow-up in surgical office in 2 weeks, please call office at [phone] to make an appointment Per GI recommendations : Cirrhosis Management - No ETOH - Less than 2G of sodium daily - Less than 2G of tylenol daily Crohn's Disease - Outpatient GI follow up to discuss restarting biologic with his previous GI provider - Outpatient colorectal appointment to discuss surgical options for strictures Current Hospital Diet Patient's current hospital diet: Low Sodium Diet (2gm Na), AHA Diet (Heart Healthy) Discharge Diet Recommended Diet: AHA Diet (Heart Healthy), Low Sodium Diet (2gm Na) Procedures Procedures Performed: exploratory laparotomy, repair umbilical hernia, resection umbilical hernia sac Pending Studies Studies pending at discharge: no Medical Emergencies . Who to Call and When: Medical Emergencies: If at any time you feel your situation is an emergency, please call 911 immediately. . Non-Emergent Contact Non-Emergency issues call your: Primary Care Provider . . "Provider Documentation" section prepared by Reji Epperson. . Seating Captain Recommendations Seating Captain Recommendations: No heavy lifting over 10 pounds for 6 weeks No strenuous activity until cleared by surgeon No submerging incision underwater for 2 weeks (no bathing, swimming, or hot tubs ) No driving while taking narcotic pain medication or until you are pain free You may shower when you get home. Replace dressing daily or as needed to keep clean and dry Walking and light activity is encouraged to prevent blood clots from forming You will be given narcotic pain medication as needed for moderate to severe pain. This medication may make you drowsy and can cause constipation. To combat constipation, drink plenty of water daily, you may take OTC stool softener such as Colace, gentle laxative or prune juice. Follow-up in surgical office in 2 weeks, please call office at [phone] to make an appointment Per GI recommendations : Cirrhosis Management - No ETOH - Less than 2G of sodium daily - Less than 2G of tylenol daily Crohn's Disease - Outpatient GI follow up to discuss restarting biologic with his previous GI provider - Outpatient colorectal appointment to discuss surgical options for strictures
== END 2017-09-10 14:30 | disposition home or self-care (01) | DRG 353 ==
LOC: C.EDB 11:26 → C.MS2W 14:28 → ENRESERV 14:32 → C.MSW 19:46
PROVIDERS: ADMIT Internal Medicine; ATTEND Internal Medicine
PROC: 0WQF0ZZ Repair Abdominal Wall, Open Approach (ICD-10-PCS; principal; 2017-09-06 11:00)
PROC: 0WJG0ZZ Inspection of Peritoneal Cavity, Open Approach (ICD-10-PCS; principal; 2017-09-06 11:00)
PROC: 0JB80ZZ Excision of Abdomen Subcutaneous Tissue and Fascia, Open Approach (ICD-10-PCS; principal; 2017-09-06 11:00)
DX: K42.9 Umbilical hernia without obstruction or gangrene (principal); K65.9 Peritonitis, unspecified; K50.00 Crohn's disease of small intestine without complications; K76.6 Portal hypertension; I85.10 Secondary esophageal varices without bleeding; J18.9 Pneumonia, unspecified organism; I25.2 Old myocardial infarction; I48.91 Unspecified atrial fibrillation; F10.20 Alcohol dependence, uncomplicated; K70.30 Alcoholic cirrhosis of liver without ascites; E87.6 Hypokalemia; I10 Essential (primary) hypertension; Z88.0 Allergy status to penicillin; Z88.8 Allergy status to other drugs, medicaments and biological substances; B95.0 Streptococcus, group A, as the cause of diseases classified elsewhere; M45.9 Ankylosing spondylitis of unspecified sites in spine; K21.9 Gastro-esophageal reflux disease without esophagitis

== ENCOUNTER 2018-11-02 10:06 | Inpatient (IN) ==
--- OUTSIDE RECORDS SUMMARY | 2018-11-02 10:08 | External Medical Summary | Continuity of Care Document ---
:1960 Author Name Elie Kimball, Provider Address Unavailable Unavailable , Care Team Providers Name Role Phone [facility] Jigar, Provider Unavailable [email or web address], UNKNOWN Unavailable Unavailable Problems Active medical history not documented Allergies and Adverse Reactions Allergy history not documented Medications Medications not documented Procedures Procedures not documented Immunizations Immunizations not documented Plan of Treatment Planned Observations Planned Goals not documented Results No Known Results Results not documented
--- NOTE | 2018-11-02 11:23 | XRay Report ---
XR chest 1V portable HISTORY: weakness COMPARISON: Chest 11/06/2017. FINDINGS: There are low lung volumes. Bibasilar linear densities consistent with subsegmental atelect asis. This is similar to the prior study. The heart remains top normal in size. No pleural effusions. No pneumothorax. No focal lung consolidations to suggest pneumonia. No evidence for pulmonary edema. IMPRESSION: Stable bibasilar linear densities suggesting atelectasis. Otherwise, no acute process within the ches t. Electronically signed by: Jorge Luis Nguyen M.D. 11/02/2018 11:22 AM
[2018-11-02 12:05] LABS: INR 1.5 (0.9-1.1); Prothrombin Time 15.4 Seconds (9.0-12.0)
[2018-11-02 12:10] LABS: Alanine Aminotransferase 13 U/L (12-78); Albumin Level 2.2 gm/dl (3.4-5.0); Aspartate Aminotransferase 19 U/L (15-37); BUN Creatinine Ratio 23.9 (10-20); Blood Urea Nitrogen 24 mg/dl (7-18); Carbon Dioxide 24 mmol/L (21-32); Chloride 102 mmol/L (98-107); Est GFR (African American) 97.1; Est GFR (Non-African American) 83.8; Glucose 114 mg/dl (70-99); Magnesium 1.9 mg/dl (1.8-2.4); Potassium 3.7 mmol/L (3.5-5.1); Sodium 133 mmol/L (136-145)
[2018-11-02 12:21] LABS: Albumin Globulin Ratio 0.5 (0.9-2); Alkaline Phosphatase 88 U/L (45-117); Bilirubin,Total 2.2 mg/dl (0.2-1); Globulin 4.1 gm/dl (2.5-4.0); Total Protein 6.3 gm/dl (6.4-8.2); Troponin I < 0.015 ng/ml (0-0.045)
[2018-11-02 12:28] LABS: Basophils # (auto) 0.01 K/uL (0-0.2); Basophils % (auto) 0.1 %; Eosinophils # (auto) 0.01 K/uL (0-0.5); Eosinophils % (auto) 0.1 %; Hematocrit (blood only) 29.8 % (42-52); Hemoglobin 10.2 g/dL (14.0-18.0); Immature Granulocytes # (auto) 0.08 K/uL (0.00-0.02); Immature Granulocytes % (auto) 0.5 %; Lymphocytes # (auto) 0.71 K/uL (1.2-3.4); Lymphocytes % (auto) 4.1 %; Mean Corpuscular Hgb Conc 34.2 g/dL (32-36); Mean Corpuscular Volume 73.6 fL (80-100); Mean Platelet Volume 9.4 fL (7.4-10.4); Monocytes # (auto) 1.33 K/uL (0.11-0.59); Monocytes % (auto) 7.6 %; Neutrophils # (auto) 15.38 K/uL (1.4-6.5); Neutrophils % (auto) 87.6 %; Platelet Count 243 K/uL (130-400); RDW Coefficient of Variation 19.4 % (11.5-14.5); RDW Standard Deviation 52.2 fL (36.4-46.3); Red Blood Count 4.05 M/uL (4.7-6.1); White Blood Count 17.52 K/uL (4.8-10.8)
--- NOTE | 2018-11-02 14:07 | History & Physical Report ---
Date of Service November 02, 2018 Assessment & Plan (1) Anasarca: Anasarca In setting of Alcoholic Cirrhosis R/O SBP Denies alcohol use since 2 years MELD:17 Abdominal ultrasound, hepatic duplex pending Low-salt diet, fluid restriction IV Lasix 40 mg daily, Aldactone 50 mg daily IV albumin 25% TID Appreciate GI input Diagnostic and therapeutic paracentesis ordered Monitor renal function, electrolytes Empirically started on Rocephin for possible SBP Monitor I/Os Leukocytosis No obvious source of infection UA is pending cxr: Suggestive of atelectasis H/O Alcoholic Cirrhosis H/O esophageal Varices H/O portal hypertensive gastropathy Hepatic duplex pending Denies any bleeding issues ON Atenolol Crohn's disease Currently not any medications Ankylosing spondylitis On chronic pain meds Follows with biology specimen technician as outpatient GERD Continue PPI Former smoker H/O Alcohol abuse Denies any recent Alcohol use DVT Px: SCDs for now Code Status Full Code Disposition: Expect to discharge home when stable PT/OT prior to discharge History of Present Illness Chief Complaint: Leg swelling, Abdominal distention Primary Care Provider: Mary Díaz MD Patient is a 58-year-old male with history of alcoholic cirrhosis, Crohn's disease, ankylosing spondylitis, GERD, iron deficiency anemia, portal hyperte nsion, esophageal varices, former smoker and other problems presents with history of worsening lower extremity edema, abdominal distention and fullness associated with generalized abdominal pain since 5 days duration. Bilateral lower extremity leg swelling has been progressively getting worse since past 6 weeks as per patient. Abdominal pain is generalized, dull aching, nonradiating,6/10 intensity, no aggravating or relieving factors, associated with poor appetite. Currently patient is not on any diuretics. He was previously on Lasix 20 mg daily. He reports having low grade fever 3 days ago which resolved. Complaints of frontal headache with intermittent dizziness, associated with" wobbly" gait, uses a cane for ambulation. Denies any history of fall, head trauma. Follows with gastroenterology, Dr. Hernadez as outpatient. States that he quit drinking alcohol 2 years ago. Denies any history of chest pain, SOB, cough, hemoptysis, nausea, vomiting, blood in stools, diarrhea, dysuria. Allergies Allergy/AdvReac Type Severity Reaction Status Date / Time adalimumab Allergy Severe RASH Verified 11/02/18 12:23 etanercept Allergy Severe RASH Verified 11/02/18 12:23 shellfish derived Allergy Severe Anaphylaxis Verified 11/02/18 12:23 tromethamine Allergy Severe RASH Verified 11/02/18 12:23 Penicillins Allergy Intermediate PASSED OUT Verified 11/02/18 12:23 bee venom protein (honey bee) Allergy Unknown PASSED OUT Verified 11/02/18 12:23 benzyl alcohol Allergy Unknown RASH Verified 11/02/18 12:23 mouse protein Allergy Unknown FACE AND Verified 11/02/18 12:23 MOUTH SWELL secukinumab Allergy Unknown FACE AND Verified 11/02/18 12:23 MOUTH SWELL sorbitan esters Allergy Unknown FACE AND Verified 11/02/18 12:23 MOUTH SWELL varenicline AdvReac Unknown VEINS IN Verified 11/02/18 12:23 FEET BLEW Home Medications Home Medications Medication Instructions Recorded Confirmed Type atenolol 25 mg PO QAM 03/16/18 11/02/18 History oxycodone 2.5 mg PO QID PRN 03/16/18 11/02/18 History pantoprazole 40 mg PO QAM 03/16/18 11/02/18 History bisacodyl [Dulcolax (bisacodyl)] 5 mg PO DAILY PRN 08/30/18 11/02/18 History polyethylene glycol 3350 [Miralax] 17 g PO 3XWK PRN 08/30/18 11/02/18 History Past Med/Surg History Medical History Ankylosing spondylitis Cirrhosis of liver Crohns disease Esophageal varices with banding GERD (gastroesophageal reflux disease) Hypertension Mitral valve prolapse ?pt states some providers say he does, some say he doesnt--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 nurse Rheumatoid arthritis Surgical History History of colonoscopy History of esophagogastroduodenoscopy (EGD) History of right inguinal hernia repair had 1 umbilical hernia repair at same time History of tonsillectomy and adenoidectomy History of tooth extraction wisdom teeth History of umbilical hernia repair ruptured and repaired 07/2017 Family History Mother Family history of reaction to anesthesia "slow to wake up a couple different times" Father Lung cancer Social History Preferred Language: [place] Communication Ability: Effective Beliefs That Will Affect Care: None Current Living Situation: Alone Feels Safe at Home: Yes Smoking Status: Former smoker Tobacco Type: cigarettes Cigarettes Per Day: 5 a day Second Hand Exposure: Yes ("everybody smoked growing up") Hx Alcohol Use: No Hx Substance Use: No Review of Systems Review of Systems: All systems reviewed & are unremarkable except as noted in HPI & below Physical Exam Physical Exam: Physical Exam: Vitals signs as noted above General Appearance:Chronic ill appearing, thin, frail, no apparent distress Head: normocephalic, Atraumatic Eyes: normal inspection, EOMI Neck: supple, Trachea midline Respiratory/Chest: Normal breath sounds, CTA Cardiovascular: S1, S2, + murmur Abdomen/GI:Soft, Distended, generalized tender, No guarding/rigidity, Bowel sounds present Extremities/Musculoskelatal:normal inspection, 2-3 + B/L LE edema Spine: Limited ROM of Spine due to Ankylosing Spondylitis Neurologic/Psych:AAOX3, grossly no focal neurological deficits Skin: normal color, warm Results & Data Vital Signs (Past 12 Hours) Vital Signs Pulse Pulse Resp BP BP Pulse Ox 11/02/18 14:00 79 15 114/67 96 11/02/18 13:00 78 18 111/69 95 11/02/18 11:47 86 18 113/70 95 11/02/18 11:35 95 11/02/18 10:14 100 H 20 112/75 98 Laboratory Results Short CBC 11/02/18 Range/Units 11:28 WBC 17.52 H (4.8-10.8) K/uL Hgb 10.2 L (14.0-18.0) g/dL Hct 29.8 L (42-52) % Plt Count 243 (130-400) K/uL BMP 11/02/18 11:28 Sodium 133 L Potassium 3.7 Chloride 102 Carbon Dioxide 24 BUN 24 H Creatinine 1.00 Glucose 114 H Calcium 8.0 L Cardiac Enzymes 11/02/18 Range/Units 11:28 Troponin I < 0.015 (0-0.045) ng/ml Liver Function 11/02/18 Range/Units 11:28 Total Bilirubin 2.2 H (0.2-1) mg/dl AST 19 (15-37) U/L ALT 13 (12-78) U/L Alkaline Phosphatase 88 (45-117) U/L Albumin 2.2 L (3.4-5.0) gm/dl Urine 11/02/18 Range/Units 14:50 Urine Color Mower Urine Appearance Clear (Clear) Urine pH 6.0 (4.5-7.5) Ur Specific [place] 1.025 (1.000-1.030) Urine Protein Trace H (Negative) Urine Glucose (UA) Negative (Negative) Diagnostic Findings CXR: Stable bibasilar linear densities suggesting atelectasis. Otherwise, no acute process within the chest. ECG Additional Comments: EKG: NSR, LAD, QTC:442
--- NOTE | 2018-11-02 14:54 | Emergency Department Note ---
Entered by Anahi Liriano acting as a scribe for History of Present Illness General Chief complaint: Swelling/Edema to Extremity Stated complaint: LEG SWELLING Source: patient Mode of arrival: ambulatory Limitations: no limitations History of Present Illness Provider complaint: leg swelling Onset (ago): month(s) 6 Location: lower extremity Pain Consistency: + other (worsening) Quality: + other (leg swelling) Associated symptoms: + denies other symptoms (runny nose), + loss of appetite and + other (congestion, abd bloating); no cough The patient is a 58 year old male who present to the ER with complaints of a worsening leg swelling that began 4 months. The patient reports that he was recently placed on oxycodone around this time and that he has had some worsening leg swelling for the same time. He states that he has also had abdominal bloating for the past 5 days. He denies any coughs or runny nose but notes he has been congested and had a loss of appetite. He also denies any nausea or vomiting. He reports that his last bowel movement was 4 days ago. He denies a history of heart failure. He also states that he was diagnosed with cirrhosis 6 months ago but denies any history of alcohol abuse. He has no abdominal pain, just fullness and discomfort but this feels like previous times. EMR reviewed and shows that the patient was diagnosed with alcohol cirrhosis, Crohns with ascites, spondylitis, and esophageal varices. The patient was a heavy drinker and quit 3 months prior to October of last year. Home Medications Home Medications Medication Instructions Recorded Confirmed Type atenolol 25 mg PO QAM 03/16/18 11/02/18 History oxycodone 2.5 mg PO QID PRN 03/16/18 11/02/18 History pantoprazole 40 mg PO QAM 03/16/18 11/02/18 History bisacodyl [Dulcolax (bisacodyl)] 5 mg PO DAILY PRN 08/30/18 11/02/18 History polyethylene glycol 3350 [Miralax] 17 g PO 3XWK PRN 08/30/18 11/02/18 History Allergies Allergy/AdvReac Type Severity Reaction Status Date / Time adalimumab Allergy Severe RASH Verified 11/02/18 12:23 etanercept Allergy Severe RASH Verified 11/02/18 12:23 shellfish derived Allergy Severe Anaphylaxis Verified 11/02/18 12:23 tromethamine Allergy Severe RASH Verified 11/02/18 12:23 Penicillins Allergy Intermediate PASSED OUT Verified 11/02/18 12:23 bee venom protein (honey bee) Allergy Unknown PASSED OUT Verified 11/02/18 12:23 benzyl alcohol Allergy Unknown RASH Verified 11/02/18 12:23 mouse protein Allergy Unknown FACE AND Verified 11/02/18 12:23 MOUTH SWELL secukinumab Allergy Unknown FACE AND Verified 11/02/18 12:23 MOUTH SWELL sorbitan esters Allergy Unknown FACE AND Verified 11/02/18 12:23 MOUTH SWELL varenicline AdvReac Unknown VEINS IN Verified 11/02/18 12:23 FEET BLEW Past Med/Surg History Medical History Ankylosing spondylitis Cirrhosis of liver Crohns disease Esophageal varices with banding GERD (gastroesophageal reflux disease) Hypertension Mitral valve prolapse ?pt states some providers say he does, 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 say 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 Rheumatoid arthritis Surgical History History of colonoscopy History of esophagogastroduodenoscopy (EGD) History of right inguinal hernia repair had 1 umbilical hernia repair at same time History of tonsillectomy and adenoidectomy History of tooth extraction wisdom teeth History of umbilical hernia repair ruptured and repaired 07/2017 Family History Mother Family history of reaction to anesthesia "slow to wake up a couple different times" Social History Preferred Language: Citizen Of [place] Communication Ability: Effective Beliefs That Will Affect Care: None Current Living Situation: Alone Feels Safe at Home: Yes Smoking Status: Former smoker Tobacco Type: cigarettes Cigarettes Per Day: 5 a day Second Hand Exposure: Yes ("everybody smoked growing up") Hx Alcohol Use: No Hx Substance Use: No Review of Systems See HPI for pertinent positives & negatives. and A total of 10 systems reviewed and were otherwise negative Physical Exam Vital Signs Vital Signs - 24 hr 11/02/18 10:14 11/02/18 11:35 11/02/18 11:47 Sepsis Recent Fever Within 48 Hours No Sepsis New/Unexplained Change in Mental Status No Sepsis Action Taken by Nursing No Action Required Pulse Rate 100 H Pulse Rate [Left Finger] 86 Pulse Rhythm [Left Finger] Regular Respiratory Rate 20 18 Respiratory Effort / Characteristics Non-Labored Respiratory Depth Normal Respiratory Pattern Regular Blood Pressure 112/75 Blood Pressure [Left Arm] 113/70 Blood Pressure Mean 87 Blood Pressure Mean [Left Arm] 84 Pulse Oximetry 98 95 95 Oxygen Delivery Method Room Air Room Air Room Air 11/02/18 13:00 11/02/18 14:00 Sepsis Recent Fever Within 48 Hours Sepsis New/Unexplained Change in Mental Status Sepsis Action Taken by Nursing Pulse Rate Pulse Rate [Left Finger] 78 79 Pulse Rhythm [Left Finger] Regular Regular Respiratory Rate 18 15 Respiratory Effort / Characteristics Non-Labored Non-Labored Respiratory Depth Normal Normal Respiratory Pattern Regular Regular Blood Pressure Blood Pressure [Left Arm] 111/69 114/67 Blood Pressure Mean Blood Pressure Mean [Left Arm] 83 82 Pulse Oximetry 95 96 Oxygen Delivery Method Room Air Room Air GENERAL: Chronically ill-appearing, disheveled, NAD, non-toxic. EYE EXAM: normal conjunctiva OROPHARYNX: no exudate, no erythema, lips, buccal mucosa, and tongue normal and mucous membranes are moist NECK: supple, no nuchal rigidity, no adenopathy, non-tender. Positive JVD. LUNGS: Diminished lung sounds bilaterally. HEART: no murmurs, S1 normal and S2 normal ABDOMEN: abdomen soft, non-tender, normo-active bowel sounds, Distended with positive fluid wave. BACK: Back is symmetrical on inspection and there is no deformity, no midline t enderness, no CVA tenderness. SKIN: no rashes and no bruising UPPER EXTREMITIES: upper extremities are grossly normal. LOWER EXTREMITIES: 4/4 pitting edema bilaterally. Calves are equal b/l. NEURO EXAM: Normal sensorium, cranial nerves II-XII grossly intact, normal speech, no gross weakness of arms, no gross weakness of legs. Course ED COURSE: Vital signs were reviewed and showed tachycardia. The patients medical record was reviewed The above diagnostic studies were performed and reviewed. ED treatments and interventions as stated above. 1057: The patient was evaluated in room C6. A complete history and physical examination was performed. 1314: I reviewed the patient's case with ANALILIA Toledo. She will evaluate the patient for further management. 1318: Upon reevaluation, the patient is feeling better. I discussed my findings with the patient and he understands and agrees with the treatment plan. Based on the patients age, coexisting illnesses, exam and lab findings the decision to treat as an inpatient was made. The patient remained stable while under my care. The patient will be evaluated for further management. Medical Decision Making Differential Diagnosis Differential Diagnosis includes but is not limited to dehydration, stroke, anemia, hypoglycemia, hyponatremia, hypernatremia, urinary tract infection, pneumonia, bronchitis, sepsis, gastroenteritis, additional abdominal pathology, metabolic abnormalities and infections. Home Medications Current Medication List: was personally reviewed by me Laboratory Data Attestation: I reviewed the patient's lab results. Result diagrams: 11/02/18 11:28 11/02/18 11:28 Lab Results 11/02/18 11/02/18 11/02/18 Range/Units 11:28 11:28 11:28 WBC 17.52 H (4.8-10.8) K/uL RBC 4.05 L (4.7-6.1) M/uL Hgb 10.2 L (14.0-18.0) g/dL Hct 29.8 L (42-52) % MCV 73.6 L (80-100) fL MCH 25.2 (25-34) pg MCHC 34.2 (32-36) g/dL RDW Std Deviation 52.2 H (36.4-46.3) fL RDW Coeff of Ronnie 19.4 H (11.5-14.5) % Plt Count 243 (130-400) K/uL MPV 9.4 (7.4-10.4) fL Immature Gran % (Auto) 0.5 % Neut % (Auto) 87.6 % Lymph % (Auto) 4.1 % Mccracken % (Auto) 7.6 % Eos % (Auto) 0.1 % Baso % (Auto) 0.1 % Immature Gran # (Auto) 0.08 H (0.00-0.02) K/uL Neut # (Auto) 15.38 H (1.4-6.5) K/uL Lymph # (Auto) 0.71 L (1.2-3.4) K/uL Mccracken # (Auto) 1.33 H (0.11-0.59) K/uL Eos # (Auto) 0.01 (0-0.5) K/uL Baso # (Auto) 0.01 (0-0.2) K/uL PT 15.4 H (9.0-12.0) Seconds INR 1.5 H (0.9-1.1) Sodium 133 L (136-145) mmol/L Potassium 3.7 (3.5-5.1) mmol/L Chloride 102 (98-107) mmol/L Carbon Dioxide 24 (21-32) mmol/L Anion Gap 7.0 (3-11) BUN 24 H (7-18) mg/dl Creatinine 1.00 (0.6-1.4) mg/dl Est Cr Clr Drug Dosing Not Reportable Est GFR ( Amer) 97.1 Est GFR (Non-Af Amer) 83.8 BUN/Creatinine Ratio 23.9 H (10-20) Glucose 114 H (70-99) mg/dl Calcium 8.0 L (8.5-10.1) mg/dl Magnesium 1.9 (1.8-2.4) mg/dl Total Bilirubin 2.2 H (0.2-1) mg/dl AST 19 (15-37) U/L ALT 13 (12-78) U/L Alkaline Phosphatase 88 (45-117) U/L Troponin I < 0.015 (0-0.045) ng/ml Total Protein 6.3 L (6.4-8.2) gm/dl Albumin 2.2 L (3.4-5.0) gm/dl Globulin 4.1 H (2.5-4.0) gm/dl Albumin/Globulin Ratio 0.5 L (0.9-2) TSH 2.510 (0.300-4.500) uIu/ml Imaging Data Radiologist's Impression: Radiology results as stated below per my review and the radiologist's interpretation: XR chest 1V portable HISTORY: weakness COMPARISON: Chest 11/06/2017. FINDINGS: There are low lung volumes. Bibasilar linear densities consistent with subsegmental atelectasis. This is similar to the prior study. The heart remains top normal in size. No pleural effusions. No pneumothorax. No focal lung consolidations to suggest pneumonia. No evidence for pulmonary edema. IMPRESSION: Stable bibasilar linear densities suggesting atelectasis. Otherwise, no acute process within the chest. Electronically signed by: Jorge Luis Nguyen M.D. 11/02/2018 11:22 AM ECG Data Attestation: I personally reviewed and interpreted this ECG as follows: Indication: weakness Rate (beats per minute): 87 Rhythm: sinus rhythm Findings: + other (left axis); no PVC Blood Pressure Blood Pressure Findings: Normal blood pressure Blood Pressure Disposition: did not require urgent referral MDM Narrative Patient is a 58-year-old male who presents the ER for abdominal swelling and edema of the bilateral extremities. Patient has a history of alcoholic cirrhosis which he was unaware of. He admits to some shortness of breath as well. On exam he has anasarca. Vitals are unremarkable. Labs show leukocytosis 17,000. Hemoglobin is 10. INR is slightly elevated at 1.5. BMP was unremarkable. Bilirubin was slightly elevated 2.2. No significant transaminitis. Troponin was negative. TSH was unremarkable. Chest x-ray unremarkable. Patient has no abdominal pain but rather notes that it feels full like his previous times when he needed paracentesis. Chest x-ray does support some CHF. Based on his diffuse anasarca I do favor he likely leads paracentesis along with diuresis. Due to the extent of this I did discuss with the hospi talist for further evaluation. Patient was updated bedside. He was agreeable. Nothing to suggest SBP as his belly is completely benign without fevers and consequently did not perform a diagnostic tap. Impression & Plan Anasarca, Cirrhosis, Shortness of breath Discharge Plan Visit Data Chief Complaint: Swelling/Edema to Extremity Stated Complaint: LEG SWELLING ED Provider: Kofi Cuevas Discharge Problem: Anasarca, Cirrhosis, Shortness of breath Patient Disposition: Being Evaluated by Hospitalist Forms Stand Alone Forms: My [facility] Prescriptions Prescriptions: No Action bisacodyl [Dulcolax (bisacodyl)] 5 mg Tablet,Delayed Release (Dr/Ec) 5 mg PO DAILY PRN (Reason: Constipation) RF: 0 polyethylene glycol 3350 [Miralax] 17 gram/dose Powder 17 g PO 3XWK PRN (Reason: Constipation) RF: 0 atenolol 25 mg Tablet 25 mg PO QAM RF: 0 pantoprazole 40 mg Tablet,Delayed Release (Dr/Ec) 40 mg PO QAM RF: 0 oxycodone 5 mg Tablet 2.5 mg PO QID PRN (Reason: Pain) RF: 0 Referrals Referrals: Mary Díaz MD [Primary Care Provider] - Discharge Problem: Cirrhosis Qualifiers: Hepatic cirrhosis type: unspecified hepatic cirrhosis Ascites presence: with ascites Qualified Code(s): K74.60 - Unspecified cirrhosis of liver The scribe's documentation has been prepared under my direction and personally reviewed by me in its entirety. I confirm that the note above accurately reflects all work, treatment, procedures, and medical decision making performed by me.
--- NOTE | 2018-11-02 15:00 | Gastrointestinal Consultation ---
Date of Consultation November 02, 2018 Assessment & Plan (1) Anasarca: 58 year old male with history of IBD not on therapy, ETOH cirrhosis reported abstinent from ETOH presenting with fluid overload, ascites. Notes he was started on OP narcotic analgesia for back/knee pain and notes fluid since s tarting new medication. He had ran out of diuretics as an OP months ago, did not request refill as he was doing well. He is awake, alert and oriented, answering questions appropriately. - MELD 17 - Daily MELD labs - Recommend ABD US - Recommend Hepatic duplex - Low NA diet - Less than 2G tylenol daily if using - No NSAIDs - Would limit narcotic analgesia - Agree w/ starting IV diuresis w/ Lasix - Can start PO aldactone 50 mg daily - Albumin 25% TID today - Plan for diagnostic and therapeutic paracentesis today - Please send cell count, culture, cytology, protein, albumin - Monitor kidney function Thank you for allowing us to participate in the care of this patient. Please call with any acute changes, questions or concerns. Please see addendum below with additional recommendation from my supervising physician. Present on Admission?: Yes (2) Cirrhosis: Present on Admission?: Yes Supervising Physician Co-Signing Physician Notes I have seen and examined the patient with EV Ruelas on 11/02. Her note reflects our findings and plan. History of Present Illness Reason for Consultation: fluid overload Requesting Physician: Ronnie Attending Physician: Ronnie History of Present Illness 58 year old male with history of ETOH cirrhosis (he reported sobriety to me), Crohn's disease, umbilical hernia incarceration and also peritonitis s/p reduction who presented through the ED with fluid overload, abd ascites. Pt was seen and evaluated, chart reviewed. No family/friends at bedside. Notes that he was in his typical state of health. Was evaluated by PCP for pain and was given narcotic analgesia to use PRN. He notes about one week after starting this he developed lower extremity edema up to knee and ascites. No abd pain but bloating. No nausea, vomitnig. No black/bloody stools. No fever, chills, CP, SOB. EGD 2018: grade 2 eso varices, portal htn gastropathy Colonoscopy 2018: stricture at 60 cm proximal to the anus. Biopsied.Normal mucosa in the entire examined colon. Biopsied.-Internal hemorrhoids Allergies Allergy/AdvReac Type Severity Reaction Status Date / Time adalimumab Allergy Severe RASH Verified 12/07/18 10:25 etanercept Allergy Severe RASH Verified 12/07/18 10:25 shellfish derived Allergy Severe Anaphylaxis Verified 12/07/18 10:25 tromethamine Allergy Severe RASH Verified 12/07/18 10:25 Penicillins Allergy Intermediate PASSED OUT Verified 12/07/18 10:25 bee venom protein (honey bee) Allergy Unknown PASSED OUT Verified 12/07/18 10:25 benzyl alcohol Allergy Unknown RASH Verified 12/07/18 10:25 mouse protein Allergy Unknown FACE AND Verified 12/07/18 10:25 MOUTH SWELL secukinumab Allergy Unknown FACE AND Verified 12/07/18 10:25 MOUTH SWELL sorbitan esters Allergy Unknown FACE AND Verified 12/07/18 10:25 MOUTH SWELL varenicline AdvReac Unknown VEINS IN Verified 12/07/18 10:25 FEET BLEW Home Medications Home Medications Medication Instructions Recorded Confirmed Type atenolol 25 mg PO QAM 03/16/18 12/07/18 History oxycodone 2.5 - 5 mg PO QID PRN 03/16/18 12/07/18 History pantoprazole 40 mg PO QAM 03/16/18 12/07/18 History bisacodyl [Dulcolax (bisacodyl)] 5 mg PO DAILY PRN 08/30/18 12/07/18 History polyethylene glycol 3350 [Miralax] 17 g PO DAILY PRN 08/30/18 12/07/18 History ciprofloxacin HCl 250 mg PO UD #74 tab 11/14/18 12/07/18 Rx furosemide [Lasix] 40 mg PO QAM 11/14/18 12/07/18 History potassium chloride [Klor-Con M20] 20 meq PO DAILY #10 tab 11/14/18 12/07/18 Rx Saccharomyces boulardii [Florastor] 250 mg PO DAILY 12/07/18 12/07/18 History Patient History Medical History Ankylosing spondylitis Cirrhosis of liver Crohns disease Esophageal varices with banding GERD (gastroesophageal reflux disease) Hypertension Mitral valve prolapse ?pt states some providers say 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, 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 Rheumatoid arthritis Surgical History History of colonoscopy History of esophagogastroduodenoscopy (EGD) History of right inguinal hernia repair had 1 umbilical hernia repair at same time History of tonsillectomy and adenoidectomy History of tooth extraction wisdom teeth History of umbilical hernia repair ruptured and repaired 07/2017 Family History Mother Family history of reaction to anesthesia "slow to wake up a couple different times" Father Lung cancer Social History Preferred Language: [place] Communication Ability: Effective Beliefs That Will Affect Care: None Current Living Situation: Alone Feels Safe at Home: Yes Smoking Status: Current every day smoker Tobacco Type: cigarettes Cigarettes Per Day: 5 a day Second Hand Exposure: No Hx Alcohol Use: Yes Hx Substance Use: No Review of Systems Constitutional: no fever and no body aches Respiratory: no cough and no dyspnea Cardiovascular: no chest pain and no radiating jaw, neck or arm pain Gastrointestinal: + bloating; no abdominal pain, no early satiety, no nausea, no vomiting, no coffee ground emesis, no hematemesis, no pain with swallowing, no dysphagia, no cramping, no change in stools, no constipation, no diarrhea/loose stools, no fecal incontinence, no blood in stools and no melena Physical Exam Constitutional: + ill appearing and + thin; no acute distress Neck: trachea midline Respiratory: normal respiratory effort; no respiratory distress Auscultation: + diminished lung sounds (at bases) Cardiovascular: Rate/Rhythm: regular rate and regular rhythm Gastrointestinal (Abdomen): Inspection/Auscultation: + abdomen distended and normal bowel sounds Percussion/Palpation: abdomen soft and + ascites; abdomen nontender, no guarding and abdomen not rigid Skin: no rashes, warm and dry Results & Data Vital Signs (Past 12 Hours) Vital Signs Pulse Pulse Resp BP BP Pulse Ox 11/02/18 14:00 79 15 114/67 96 11/02/18 13:00 78 18 111/69 95 11/02/18 11:47 86 18 113/70 95 11/02/18 11:35 95 11/02/18 10:14 100 H 20 112/75 98 (1) Cirrhosis Ascites presence: with ascites Hepatic cirrhosis type: unspecified hepatic cirrhosis Qualified Code(s): K74.60 - Unspecified cirrhosis of liver; R18.8 - Other ascites
[2018-11-02 15:17] LABS: Appearance Urine Clear (Clear); Bacteria Urine Automated Negative (Negative); Blood Urine Negative (Negative); Color Urine Orange; Glucose Urine UA Negative (Negative); Ketones Urine Trace (Negative); Leukocyte Esterase Urine Trace (Negative); Nitrite Urine Positive (Negative); Protein Urine Trace (Negative); Specific Gravity Urine 1.025 (1.000-1.030); Urobilinogen Urine Negative (Negative)
[2018-11-02 15:19] LABS: Bilirubin Urine 1+ (Negative); Ictotest Urine Positive (Negative)
--- NOTE | 2018-11-02 16:33 | Ultrasound Report ---
US liver CLINICAL HISTORY: 58 years-old Male presenting with ascites, HCC screen. TECHNIQUE: Real-time grayscale and limited color Doppler ultrasound imaging of the abdomen limited to the right upper quadrant was performed. COMPARISON: CT from 11/06/2017. FINDINGS: Pancreas: Largely obscured due to overlying bowel gas. Liver: Nodular contour with hyperechogenic parenchyma and heterogeneous echotexture, consistent with cirrhosis. The liver measures 15.6 cm in maximal sagittal dimension. No sonographic evidence of hepat ic mass. The left hepatic lobe was not well visualized. Main portal vein patent with normal direction al flow. Biliary: No intrahepatic biliary ductal dilatation. Common bile duct measures up to 5 mm in diameter. Gallbladder: Gallbladder wall thickening is likely secondary given cirrhosis and ascites. Mild disten tion of the gallbladder may be on a physiologic basis. No cholelithiasis. Sonographic Abel's sign p ositive. Right kidney: Normal in appearance without evidence of hydronephrosis. Ascites: Moderate ascites in the right upper quadrant. Other: None. IMPRESSION: 1. No cholelithiasis. Gallbladder wall thickening is most likely on a secondary basis related to cir rhosis and ascites. The degree of gallbladder distention may also be on a physiologic basis. However, it was reported that there was a positive sonographic Abel's sign. Acute cholecystitis is not favo red. Given the mixture of these findings, HIDA scan could be obtained if there is clinical concern fo r cystitis. 2. Cirrhosis with ascites. No sonographic evidence of hepatic mass, allowing for limited visualizati on of the left hepatic lobe. Electronically signed by: Sukh Baxter M.D. 11/02/2018 4:31 PM
--- NOTE | 2018-11-02 16:40 | Ultrasound Report ---
US duplex portal hepatic veins HISTORY: 58 years-old Male acute ascites, rule out PVT follow up study in a patient with history of cirrhosis and ascites. COMPARISON: Ultrasound of the liver of same day at 3:56 PM, CT abdomen and pelvis 11/06/2017 TECHNIQUE: Multiple real-time sonographic images of the hepatic vasculature was obtained assessing gr ayscale appearance, color and spectral flow FINDINGS: Limited exam secondary to patient condition. Cirrhotic liver disease with upper abdominal ascites. Patent pulsatile hepatic veins. Patent main and right portal veins with hepatopedal flow. Nonvisualization of the left portal vein. Hepatic artery i s patent, peak systolic velocity of 71 cm/s. IMPRESSION: 1. Cirrhotic liver disease with ascites. 2. Unremarkable hepatic vasculature, specifically no evidence of portal venous thrombosis. The above report was generated using voice recognition software. It may contain grammatical, syntax o r spelling errors. Electronically signed by: Merritt Barnes M.D. 11/02/2018 4:39 PM
[2018-11-02] MEDS ORDERED: ACETAMINOPHEN 325 MG TAB PO PRN (17:20)
[2018-11-02] MEDS ORDERED: ONDANSETRON INJ 2 MG/ML 2 ML VIAL IV PRN (17:20)
[2018-11-02] MEDS ORDERED: BISACODYL 5 MG TABEC PO PRN (17:20)
[2018-11-02] MEDS ORDERED: PATIENT'S HEIGHT AND/OR WEIGHT NEEDED SCH (17:45)
[2018-11-02] MEDS: ALBUMIN 25% 50 ML IV SCH ×2 (18:19→21:31)
[2018-11-02] MEDS: FUROSEMIDE 40 MG in SYRINGE 0 ML IV SCH (18:24)
[2018-11-02] MEDS: OXYCODONE HCL IR 5 MG TAB (IMMEDIATE RELEASE) PO PRN (18:41)
--- NOTE | 2018-11-02 20:25 | Ultrasound Report ---
US paracentesis abd w/image CLINICAL HISTORY: 58 years-old Male presenting with ascites . COMPARISON: Ultrasound from earlier today. PROCEDURE: The procedure and its risks, benefits, and alternatives were discussed with the patient, and written informed consent was obtained. A timeout was performed to confirm patient identity. Limited ultrasound of the abdomen was performed to determine a safe needle entry site, and the site w as marker for paracentesis. The left lower quadrant was prepped and draped in the usual aseptic fashion. 1% Lidocaine was used fo r local anesthesia. A paracentesis needle-sheath was inserted into the peritoneal space using ultrasound guidance. The ne edle was removed and the sheath was connected to tubing and a vacuum suction device. A total of 3 L o f clear yellow ascites was aspirated. The sheath was removed, and a dressing applied. The patient tolerated the procedure well. No immediate complications. IMPRESSION: Ultrasound-guided diagnostic and therapeutic paracentesis with aspiration of 3 L of ascites. Electronically signed by: Sukh Baxter M.D. 11/02/2018 8:14 PM
[2018-11-02] MEDS: cefTRIAXone SODIUM 1,000 MG in DEXTROSE 5% 50 ML IV SCH (20:31)
[2018-11-02 20:50] LABS: Albumin Peritoneal Fluid 0.6 g/dl
[2018-11-02 21:03] LABS: Total Protein Peritoneal Fluid 1.4 g/dl
[2018-11-02 22:28] LABS: Appearance Peritoneal Fluid CLOUDY; Color Peritoneal Fluid YELLOW; Mononuclear WBC Peritoneal 22.9 %; Polynuclear WBC Peritoneal 77.1 %; RBC Peritoneal Fluid (A) < 3000 /uL; WBC Peritoneal Fluid (A) 10977 /ul (0-300)
[2018-11-03] MEDS: OXYCODONE HCL IR 5 MG TAB (IMMEDIATE RELEASE) PO PRN ×3 (02:24→20:43)
[2018-11-03 06:04] LABS: Hematocrit (blood only) 30.1 % (42-52); Hemoglobin 10.4 g/dL (14.0-18.0); Mean Corpuscular Hgb Conc 34.6 g/dL (32-36); Mean Corpuscular Volume 73.1 fL (80-100); Mean Platelet Volume 9.2 fL (7.4-10.4); Platelet Count 260 K/uL (130-400); RDW Coefficient of Variation 19.4 % (11.5-14.5); RDW Standard Deviation 51.6 fL (36.4-46.3); Red Blood Count 4.12 M/uL (4.7-6.1); White Blood Count 24.59 K/uL (4.8-10.8)
[2018-11-03 06:26] LABS: INR 1.6 (0.9-1.1); Prothrombin Time 15.7 Seconds (9.0-12.0)
[2018-11-03 06:32] LABS: Albumin Level 2.1 gm/dl (3.4-5.0); BUN Creatinine Ratio 27.3 (10-20); Calcium 7.8 mg/dl (8.5-10.1); Creatinine Clr Calc Pharmacy 74.3 ml/min; Est GFR (Non-African American) 91.4; Magnesium 1.9 mg/dl (1.8-2.4); Potassium 3.8 mmol/L (3.5-5.1)
[2018-11-03 06:34] LABS: Basophils # (auto) 0.02 K/uL (0-0.2); Basophils % (auto) 0.1 %; Dohle Bodies 2+; Echinocytes 1+; Immature Granulocytes # (auto) 0.16 K/uL (0.00-0.02); Immature Granulocytes % (auto) 0.7 %; Lymphocytes # (auto) 0.71 K/uL (1.2-3.4); Lymphocytes % (auto) 2.9 %; Monocytes # (auto) 1.95 K/uL (0.11-0.59); Monocytes % (auto) 7.9 %; Neutrophils # (auto) 21.75 K/uL (1.4-6.5); Neutrophils % (auto) 88.4 %; Ovalocytes 1+; Poikilocytosis Present; Toxic Granulation 1+
[2018-11-03 06:46] LABS: Albumin Globulin Ratio 0.6 (0.9-2); Bilirubin,Total 2.6 mg/dl (0.2-1); Globulin 3.7 gm/dl (2.5-4.0); Total Protein 5.8 gm/dl (6.4-8.2)
--- NOTE | 2018-11-03 07:42 | Hospitalist Progress Note ---
Date of Service November 03, 2018 Assessment & Plan (1) Anasarca: ASCITES/ANASARCA DECOMPENSATED ALCOHOLIC CIRRHOSIS Denies alcohol use since 2 years . MELD:17 -S/P Diagnostic and therapeutic paracentesis on 11/02/18- 3 L fluid, Positive for SBP -Low salt diet, Fluid restriction -IV Lasix 40 mg daily, Aldactone 50 mg daily (was not on diuretics at home) -IV Albumin 25% TID -On IV Rocephin -GI on board- Appreciate inputs. -Work up- Hepatic duplex- neg for PVT, US =- Cirrhosis + SUBACUTE BACTERIAL PERITONITIS Status post paracentesis on 11/02/20183 L WBC count is around 10,000 with polymorphonuclear count 77% -On IV Rocephin---> Day 2 -Peritoneal fluid culture- GNB--> Follow up LEUCOCYTOSIS- Worsening Ascitic fluid positive for SBP with WBC 73003, polymorphonuclear WBC 77.1 Work up- cxr: Suggestive of atelectasis; UA- pending, HX OF ALCOHOLIC CIRRHOSIS H/O esophageal Varices H/O portal hypertensive gastropathy -Hepatic duplex - NEG for PVT, US - Cirrhosis -Follows up with GI outpatient. Has had EGD in past CROHN'S DISEASE -Currently not any medications -No issues ANKYLOSING SPONDYLITIS -On chronic pain meds- narcotics- oxycodone 2.5 mg QID PRN. Cautious and minimize use -Follows with system analyst as outpatient GERD -Continue PPI Former smoker DVT Px: SCDs for now Code Status Full Code Disposition: Expect to discharge home when stable PT/OT prior to discharge Subjective Patient is feeling better today. Continues to have abdominal distention, mild abdominal pain. No nausea, vomiting. Does have bilateral lower extremity swelling. Denies any shortness of breath, cough Not on oxygen. Physical Exam Physical Exam: GENERAL- AAOX3, No acute distress LUNGS- Air entry bilaterally equal. No rales, rhonchi, crackles, wheezes heard. HEART- Regular rate and rhythm. No murmurs ABDOMEN- Soft, ASCITES- ABD DISTENSION, MILD TENDERNESS, Bowel sounds heard. EXTREMITIES- B/L EXT EDEMA + PITTING NEUROMUSCULAR- AAOX3, Grossly no focal deficits Results & Data Vital Signs (Past 12 Hours) Vital Signs Temp Pulse Resp BP BP Pulse Ox 11/03/18 03:10 36.4 C L 87 18 117/72 97 11/02/18 22:59 36.8 C 86 16 104/61 95 11/02/18 21:20 36.5 C 87 16 107/64 95
[2018-11-03] MEDS: THIAMINE HCL 100 MG TAB PO SCH (08:32)
[2018-11-03] MEDS: PANTOprazole 40 MG TAB PO SCH (08:32)
[2018-11-03] MEDS: FOLIC ACID 1 MG TAB PO SCH (08:32)
[2018-11-03] MEDS: ATENOLOL 25 MG TABLET PO SCH (08:32)
[2018-11-03] MEDS: FUROSEMIDE 40 MG in SYRINGE 0 ML IV SCH (08:32)
[2018-11-03] MEDS: cefTRIAXone SODIUM 1,000 MG in DEXTROSE 5% 50 ML IV SCH (08:32)
[2018-11-03] MEDS ORDERED: SPIRONOLACTONE 25 MG TAB PO SCH (09:00)
[2018-11-03] MEDS: ALBUMIN 25% 50 ML IV SCH ×2 (09:31→20:43)
--- NOTE | 2018-11-03 14:09 | Gastroenterology Progress Note ---
Date of Service November 03, 2018 Subjective Overnight events noted - Pt s/p 3 liter tap, fluid studies showed marked PMN > 7000 also with LDH > serum limit and total protein > 1, ascitic fluid cx GNR. He was started on Rocephin. Pt is without complaint - he is hungry, denies abd pain, BM's unremarkable. On exam, VS are stable and he is without fever. he is markedly cachectic. He is lucid and conversant. His abd is distended and firm with caput, but not tender. He has mild pedal edema, but no asterixis. Labs reviewed - Hgb stable but WBC increased to 25 overnight. Bili 2's, Na 134, creat 0.93 from 1 yesterday. A/P: Cirrhosis, ascites H/o Crohn's disease with known ileal stricture Bacterial peritonitis primary vs secondary, on Rocephin with rising WBC - Need to rule out secondary bacterial peritonitis, stefany given high ascitic fluid WBC, h/o Crohn's, and ascitic fluid LDH. Will empirically broaden abx coverage to include anaerobes; check C diff due to worsening leukocytosis, resume albumin scheduled for hepatorenal prophy. I have requested a CT scan of abdomen and pelvis, although he tells me that his severe kyphosis has prevented them from getting CT's in the past --> of note, he had a CT at [facility] in July. - Regarding ascites - please hold diuretics given peritonitis; plan to repeat tap on Monday for relief of ascites as well as confirmation of improved PMN count. - Malnutrition, cachexia - Nutritional supplement ordered, consider screen for micronutrient deficency and empiric MVI. Results & Data Vital Signs (Past 12 Hours) Vital Signs Temp Pulse Pulse Resp BP BP Pulse Ox 11/03/18 12:00 36.6 C 84 20 104/67 96 11/03/18 08:00 87 11/03/18 07:48 36.3 C L 93 H 18 107/65 94 11/03/18 03:10 36.4 C L 87 18 117/72 97
[2018-11-03] MEDS ORDERED: ALBUMIN 5% 250 ML IV SCH (14:30)
[2018-11-03] MEDS: metroNIDAZOLE 500 MG/100 ML BAG IV SCH ×2 (15:10→22:28)
[2018-11-03] MEDS ORDERED: IOVERSOL 100ml IV PRN (17:55)
--- NOTE | 2018-11-03 18:15 | CT Scan Report ---
CT abd pelvis oral and IV con CLINICAL HISTORY: 58 years-old Male presenting with generalized abdominal pain, H/o Crohn's disease a nd cirrhosis. TECHNIQUE: Multidetector CT of the abdomen and pelvis was performed after the administration of oral and intravenous contrast. IV contrast: 94 mL of Optiray 320. One or more dose lowering techniques wer e used consistent with the principles of ALARA (as low as reasonably achievable), including automatic exposure control, mA or kV adjustment to individual patient size, and/or use of iterative reconstruc tion. COMPARISON: 11/06/2017. CT DOSE (mGy.cm): The estimated cumulative dose is 674.75 mGy.cm. FINDINGS: [employer] topogram: Unremarkable. Lung bases: Normal heart size. Coronary artery calcification. No pericardial or pleural effusion. Min imal dependent changes likely atelectasis. Liver: Nodular contour of the liver with relative hypertrophy of the right hepatic lobe consistent wi th cirrhosis. Allowing for the single phase of contrast and the limitations of the examination due to patient positioning and arms at the sides, no focal lesion is appreciated. Partial filling defect wi thin the right portal vein suggested. This may extend along the anterior branch of the right portal v ein. Superior mesenteric vein and hepatic veins patent. Biliary: No intrahepatic or extrahepatic biliary ductal dilatation. Gallbladder with wall thickening that is likely secondary. Pancreas: Normal. Spleen: Enlarged measuring over 15 cm in maximal sagittal dimension.. Adrenal glands: Normal. Kidneys and ureters: Normal. No hydronephrosis. Bladder: Incompletely evaluated secondary to underdistention. Pelvic organs: Prostate and seminal vesicles normal. Bowel: Mild diffuse wall thickening of the retroperitoneal colon. More significant small bowel wall t hickening is evident. Oral contrast progresses to the mid ileum. No convincing evidence of a transiti on point to suggest obstruction. Significant gastric wall thickening is also evident. Peritoneal cavity: Peritoneal enhancement. Large volume ascites. Ocular lesions of fluid likely exten d through peritoneal defect into the perirectal region. Lymph nodes: No enlarged lymph nodes in the abdomen or pelvis. Vasculature: Atherosclerosis of the normal caliber abdominal aorta. IVC patent. Significant varices e vident in the esophageal and para esophageal regions as well as gastric and perisplenic regions. Mese nteric varices also suggested. Abdominal wall: Right varicocele. Mild body wall edema. Ascites extends into the left inguinal hernia . Musculoskeletal: Degenerative changes of the spine. Osseous fusion of the bilateral sacroiliac joints . Evidence of enthesophytes resulting in extensive fusion of the thoracic spine and upper lumbar spin e. IMPRESSION: 1. Cirrhosis with portal hypertension evidenced by varices and splenomegaly. 2. Ascites. Peritoneal enhancement could relate to the recent paracentesis performed less than 24 ho urs ago. Correlate with the fluid that was sent at the time of paracentesis to assess for infectious peritonitis. 3. Evidence of portal colopathy, portal enteropathy, and portal gastropathy. 4. Findings suggest thrombosis in the portal vein. Recommend duplex Doppler examination of the right upper quadrant. Electronically signed by: Sukh Baxter M.D. 11/03/2018 6:14 PM
[2018-11-04] MEDS: metroNIDAZOLE 500 MG/100 ML BAG IV SCH ×3 (06:20→22:10)
[2018-11-04] MEDS: OXYCODONE HCL IR 5 MG TAB (IMMEDIATE RELEASE) PO PRN ×2 (06:20→20:34)
[2018-11-04 06:30] LABS: Hematocrit (blood only) 30.9 % (42-52); Mean Corpuscular Hgb Conc 35.6 g/dL (32-36); Mean Corpuscular Volume 72.2 fL (80-100); Mean Platelet Volume 9.1 fL (7.4-10.4); Platelet Count 300 K/uL (130-400); RDW Coefficient of Variation 19.5 % (11.5-14.5); RDW Standard Deviation 51.5 fL (36.4-46.3); Red Blood Count 4.28 M/uL (4.7-6.1); White Blood Count 27.07 K/uL (4.8-10.8)
[2018-11-04 06:50] LABS: Basophils # (auto) 0.03 K/uL (0-0.2); Basophils % (auto) 0.1 %; Echinocytes 2+; Eosinophils # (auto) 0.01 K/uL (0-0.5); Immature Granulocytes # (auto) 0.17 K/uL (0.00-0.02); Immature Granulocytes % (auto) 0.6 %; Lymphocytes # (auto) 0.97 K/uL (1.2-3.4); Lymphocytes % (auto) 3.6 %; Monocytes # (auto) 2.66 K/uL (0.11-0.59); Monocytes % (auto) 9.8 %; Neutrophils # (auto) 23.23 K/uL (1.4-6.5); Neutrophils % (auto) 85.9 %; Poikilocytosis Present; Polychromasia 1+
[2018-11-04 07:03] LABS: Albumin Level 2.2 gm/dl (3.4-5.0); BUN Creatinine Ratio 30.3 (10-20); Calcium 7.9 mg/dl (8.5-10.1); Creatinine Clr Calc Pharmacy 66.4 ml/min; Est GFR (African American) 92.6; Est GFR (Non-African American) 79.9; Potassium 3.9 mmol/L (3.5-5.1)
[2018-11-04 07:06] LABS: Albumin Globulin Ratio 0.6 (0.9-2); Bilirubin,Total 2.3 mg/dl (0.2-1); Globulin 3.4 gm/dl (2.5-4.0); Total Protein 5.6 gm/dl (6.4-8.2)
[2018-11-04] MEDS: FOLIC ACID 1 MG TAB PO SCH (08:16)
[2018-11-04] MEDS: ATENOLOL 25 MG TABLET PO SCH (08:16)
[2018-11-04] MEDS: PANTOprazole 40 MG TAB PO SCH (08:16)
[2018-11-04] MEDS: cefTRIAXone SODIUM 1,000 MG in DEXTROSE 5% 50 ML IV SCH (08:16)
[2018-11-04] MEDS: THIAMINE HCL 100 MG TAB PO SCH (08:17)
[2018-11-04] MEDS: ALBUMIN 25% 50 ML IV SCH ×4 (09:27→20:34)
--- NOTE | 2018-11-04 12:16 | Gastroenterology Progress Note ---
Date of Service November 04, 2018 Subjective Pt reports abd distention that has worsened, asking to be drained. O/w no complaints. Denies abd pain. On exam, he is comfortable and pleasant. He is markedly cachectic. Abd is distended and dull to percussion, but non tender. Labs show rising WBC, Creat 1.03 and BUN 32. A/P: Cirrhosis with ascites. Crohn's with TI stricture Now with SBP, cultures show stearns-sens E coli. - His WBC is rising, although he appears to be on appropriate abx coverage. Will re-check tomorrow, as well as re-tap ascites for cell count; if WBC or PMN count in fluid are rising, cont switch to Zosyn. - Therapeutic tap (not more than 4 liters) tomorrow. - BUN and creat are both rising as well; this is likely aggravated by contrast load from yesterday. Cont to hold diuretics; given worsening pre-renal azotemia, will give additional albumin today. Results & Data Vital Signs (Past 12 Hours) Vital Signs Temp Pulse Pulse Resp BP Pulse Ox 11/04/18 11:57 36.4 C L 84 20 122/75 95 11/04/18 11:54 36.7 C 89 18 95 11/04/18 11:00 94 H 11/04/18 08:00 36.6 C 91 H 18 112/75 95 11/04/18 04:41 36.3 C L 92 H 18 110/69 94 11/04/18 01:44 86
[2018-11-04] MEDS: ALBUMIN 25% 100 ML IV ONE ×2 (12:30→12:37)
--- NOTE | 2018-11-04 14:03 | Hospitalist Progress Note ---
Date of Service November 04, 2018 Assessment & Plan (1) Anasarca: ASCITES/ANASARCA DECOMPENSATED ALCOHOLIC CIRRHOSIS Denies alcohol use since 2 years . MELD:17 -S/P Diagnostic and therapeutic paracentesis on 11/02/18 - 3 L fluid, Positive for SBP -Low salt diet, Fluid restriction -IV Lasix 40 mg daily, Aldactone 50 mg daily (was not on diuretics at home). Held diuetics secondary to elevated creatinine -IV Albumin 25% TID- continue per GI -On IV Rocephin - Day 3 -GI on board- Appreciate inputs. -Work up- Hepatic duplex- neg for PVT, US =- Cirrhosis + SUBACUTE BACTERIAL PERITONITIS Status post paracentesis on 11/02/2018 3 L WBC count is around 10,000 with polymorphonuclear count 77% -On IV Rocephin---> Day 3 -Peritoneal fluid culture-Che sentitive E coli -Plan is to tap again tomorrow to f/up ascitic fluid WBC and PMH, if worsening will consider broadening spectrum of antibiotics LEUCOCYTOSIS- Worsening to 27k today in spite of antibiotics Ascitic fluid positive for SBP with WBC 21001, polymorphonuclear WBC 77.1 -On IV Rocephin as above -Plan is to tap again tomorrow to f/up ascitic fluid WBC and PMH, if worsening will consider broadening spectrum of antibiotics Work up- cxr: Suggestive of atelectasis; UA- Neg HX OF ALCOHOLIC CIRRHOSIS H/O esophageal Varices H/O portal hypertensive gastropathy -Hepatic duplex - NEG for PVT, US - Cirrhosis -Follows up with GI outpatient. Has had EGD in past CROHN'S DISEASE -Currently not any medications -No issues ANKYLOSING SPONDYLITIS -On chronic pain meds- narcotics- oxycodone 2.5 mg QID PRN. Cautious and minimize use -Follows with shirt operator as outpatient GERD -Continue PPI Former smoker DVT Px: SCDs for now Code Status Full Code Disposition: Expect to discharge home when stable PT/OT prior to discharge Subjective Patient continues to have abdominal distention, mild abdominal pain. No nausea, vomiting. Does have bilateral lower extremity swelling. Denies any shortness of breath, cough. Not on oxygen. Physical Exam Physical Exam: GENERAL- AAOX3, No acute distress LUNGS- Air entry bilaterally equal. No rales, rhonchi, crackles, wheezes heard. HEART- Regular rate and rhythm. No murmurs ABDOMEN- Soft, ASCITES- ABD DISTENSION, MILD TENDERNESS, Bowel sounds heard. EXTREMITIES- B/L EXT EDEMA + PITTING NEUROMUSCULAR- AAOX3, Grossly no focal deficits Results & Data Vital Signs (Past 12 Hours) Vital Signs Temp Pulse Pulse Resp BP Pulse Ox 11/04/18 11:57 36.4 C L 84 20 122/75 95 11/04/18 11:54 36.7 C 89 18 95 11/04/18 11:00 94 H 11/04/18 08:00 36.6 C 91 H 18 112/75 95 11/04/18 04:41 36.3 C L 92 H 18 110/69 94
[2018-11-05 06:20] LABS: Hematocrit (blood only) 27.6 % (42-52); Hemoglobin 9.5 g/dL (14.0-18.0); Mean Corpuscular Hgb Conc 34.4 g/dL (32-36); Mean Corpuscular Volume 72.4 fL (80-100); Mean Platelet Volume 9.3 fL (7.4-10.4); Platelet Count 191 K/uL (130-400); RDW Coefficient of Variation 19.6 % (11.5-14.5); RDW Standard Deviation 52.2 fL (36.4-46.3); Red Blood Count 3.81 M/uL (4.7-6.1); White Blood Count 16.04 K/uL (4.8-10.8)
[2018-11-05 06:46] LABS: Albumin Level 2.7 gm/dl (3.4-5.0); BUN Creatinine Ratio 30.3 (10-20); Bilirubin,Total 2.5 mg/dl (0.2-1); Calcium 7.8 mg/dl (8.5-10.1); Creatinine Clr Calc Pharmacy 85.3 ml/min; Est GFR (African American) 115.1; Est GFR (Non-African American) 99.4; Globulin 2.8 gm/dl (2.5-4.0); Potassium 3.1 mmol/L (3.5-5.1); Total Protein 5.5 gm/dl (6.4-8.2)
[2018-11-05 06:57] LABS: INR 1.9 (0.9-1.1); Partial Thromboplastin Ratio 1.6; Partial Thromboplastin Time 42.3 Seconds (21.0-31.0); Prothrombin Time 18.3 Seconds (9.0-12.0)
[2018-11-05] MEDS: metroNIDAZOLE 500 MG/100 ML BAG IV SCH ×3 (07:00→22:43)
[2018-11-05] MEDS: FOLIC ACID 1 MG TAB PO SCH (07:54)
[2018-11-05] MEDS: cefTRIAXone SODIUM 1,000 MG in DEXTROSE 5% 50 ML IV SCH (07:55)
[2018-11-05] MEDS: PANTOprazole 40 MG TAB PO SCH (07:55)
[2018-11-05] MEDS: ATENOLOL 25 MG TABLET PO SCH (07:55)
[2018-11-05] MEDS: THIAMINE HCL 100 MG TAB PO SCH (07:55)
[2018-11-05] MEDS: POTASSIUM CHLORIDE 20 MEQ TABCR PO SCH ×2 (08:10→10:37)
[2018-11-05] MEDS: ALBUMIN 25% 50 ML IV SCH ×3 (08:34→20:49)
--- NOTE | 2018-11-05 09:25 | Gastroenterology Progress Note ---
Date of Service November 05, 2018 Assessment & Plan (1) Anasarca: 58 year old male with history of IBD not on therapy, ETOH cirrhosis reported abstinent from ETOH presenting with fluid overload, ascites. Notes he was started on OP narcotic analgesia for back/knee pain and notes fluid since starting new medication. He had ran out of diuretics as an OP months ago, did not request refill as he was doing well. He is awake, alert and oriented, answering questions appropriately. Paracentesis w/ evidence of SBP, started on IV ABX, albumin to go for repeat paracentesis today - NPO for paracentesis today, will review once able - Will review imaging w/ attending, radiology - Continue IV ABX to treat SBP - MELD 17 - Low NA diet - Less than 2G tylenol daily if using - No NSAIDs - Would limit narcotic analgesia - Monitor kidney function Thank you for allowing us to participate in the care of this patient. Please call with any acute changes, questions or concerns. Please see addendum below with additional recommendation from my supervising physician. Attg add: I interviewed and examined pt, reviewed chart and labs. Pt with improved WBC, improved creat, s/p tap today with removal of 2/5 liters and ultrasound showing septated fluid in the abdomen. Fluid studes show falling WBC. Cont rocephin 7 day course, cont albumin until tomorrow. Hold diuretics for now, but plan to resume next 1-2 days. (2) Cirrhosis: Subjective Pt was seen and evaluated, chart reviewed. To go for repeat paracentesis today. Admitted w/ SBP on IV ABX. CT ABD/Pelvis w/ ? of PVT, hepatic duplex done prior was negative. Will review with attending, radiology. He offers no complaints this AM. No abd pain. No nausea, vomiting. No fever, chills, CP, SOB. Review of Systems Constitutional: no fever and no chills Respiratory: no cough and no dyspnea Cardiovascular: no chest pain, no dyspnea on exertion and no palpitations Gastrointestinal: no abdominal pain, no early satiety, no vomiting, no blood in stools and no melena Physical Exam Constitutional: + ill appearing and + cachectic Neck: trachea midline Respiratory: normal respiratory effort, lungs clear to auscultation Cardiovascular: Rate/Rhythm: regular rate and regular rhythm Gastrointestinal (Abdomen): Inspection/Auscultation: + abdomen distended and normal bowel sounds Percussion/Palpation: + abdomen tender and abdomen soft; no guarding and abdomen not rigid Skin: no rashes, warm and dry Results & Data Vital Signs (Past 12 Hours) Vital Signs Temp Pulse Pulse Resp BP Pulse Ox 11/05/18 07:02 36.6 C 89 18 129/75 94 11/05/18 03:24 36.4 C L 75 20 104/62 95 11/05/18 00:17 36.4 C L 87 20 116/66 92 11/05/18 00:00 80 (1) Cirrhosis Ascites presence: with ascites Hepatic cirrhosis type: unspecified hepatic cirrhosis Qualified Code(s): K74.60 - Unspecified cirrhosis of liver; R18.8 - Other ascites
--- NOTE | 2018-11-05 10:48 | Hospitalist Progress Note ---
Date of Service November 05, 2018 Assessment & Plan (1) Anasarca: ASCITES/ANASARCA DECOMPENSATED ALCOHOLIC CIRRHOSIS Denies alcohol use since 2 years . MELD:17 -S/P Diagnostic and therapeutic paracentesis on 11/02/18 - 3 L fluid, Positive for SBP -Low salt diet, Fluid restriction -S/P IV Lasix 40 mg daily, Aldactone 50 mg daily (was not on diuretics at home). Held diuetics secondary to elevated creatinine on 11/04/18 -IV Albumin 25% TID- continue per GI -On IV Rocephin, Flagyl q 8 hours - Day 4 -GI on board- Appreciate inputs. -Work up- Hepatic duplex- neg for PVT, US =- Cirrhosis + SUBACUTE BACTERIAL PERITONITIS Status post paracentesis on 11/02/2018 3 L WBC count is around 10kwith polymorphonuclear count 77% Leucocytosis trending down, no fever, denies abd pain -On IV Rocephin---> Day 4 -Peritoneal fluid culture-Che sentitive E coli -Plan is to tap again today to f/up ascitic fluid WBC and PMH, if worsening will consider broadening spectrum of antibiotics LEUCOCYTOSIS- Worsened to 27 k and now trending down to 16k Ascitic fluid positive for SBP with WBC 27904, polymorphonuclear WBC 77.1 -On IV Rocephin, Flagyl as above -Plan is to tap again today to f/up ascitic fluid WBC and PMH Work up- CXR: Suggestive of atelectasis; UA- Neg HX OF ALCOHOLIC CIRRHOSIS H/O Esophageal Varices H/O portal hypertensive gastropathy -Hepatic duplex - NEG for PVT, US - Cirrhosis -Follows up with GI outpatient. Has had EGD in past CROHN'S DISEASE -Currently not any medications -No issues ANKYLOSING SPONDYLITIS -On chronic pain meds- narcotics- oxycodone 2.5 mg QID PRN. Cautious and minimize use -Follows with funding coordinator as outpatient GERD -Continue PPI Former smoker DVT Px: SCDs for now Code Status Full Code Disposition: Expect to discharge home when stable PT/OT prior to discharge Subjective Pt denies any new complaints. For repeat paracentesis today. Continues to have abdominal distention, some shortness of breath secondary to it, leg swelling No fever, chills per Mental status- AAOX3 Physical Exam Physical Exam: GENERAL- AAOX3, No acute distress LUNGS- Air entry bilaterally equal. No rales, rhonchi, crackles, wheezes heard. HEART- Regular rate and rhythm. No murmurs ABDOMEN- Soft, ASCITES- ABD DISTENSION, MILD TENDERNESS, Bowel sounds heard. EXTREMITIES- B/L EXT EDEMA + PITTING NEUROMUSCULAR- AAOX3, Grossly no focal deficits Results & Data Vital Signs (Past 12 Hours) Vital Signs Temp Pulse Pulse Resp BP Pulse Ox 11/05/18 09:33 83 11/05/18 07:02 36.6 C 89 18 129/75 94 11/05/18 03:24 36.4 C L 75 20 104/62 95 11/05/18 00:17 36.4 C L 87 20 116/66 92 11/05/18 00:00 80
--- NOTE | 2018-11-05 10:48 | Ultrasound Report ---
US paracentesis abd w/image CLINICAL HISTORY: 58 years-old Male presenting with Ascites, SBP. COMPARISON: 11/02/[address] from 11/03/2018. PROCEDURE: The procedure and its risks, benefits, and alternatives were discussed with the patient, and written informed consent was obtained. A timeout was performed to confirm patient identity. Limited ultrasound of the abdomen was performed to determine a safe needle entry site, and the site w as marker for paracentesis. Multiple septations within the ascites evidence of complexity. The left lower quadrant was prepped and draped in the usual aseptic fashion. 1% Lidocaine was used fo r local anesthesia. A paracentesis needle-sheath was inserted into the peritoneal space using ultrasound guidance. The ne edle was removed and the sheath was connected to tubing and a vacuum suction device. A total of 2.4 L of clear yellow ascites was aspirated. The sheath was removed, and a dressing applied. The patient tolerated the procedure well. No immediate complications. IMPRESSION: 1. Ultrasound-guided diagnostic and therapeutic paracentesis with aspiration of 2.4 L of ascites. 2. Complex ascites may suggest peritonitis. Electronically signed by: Sukh Baxter M.D. 11/05/2018 10:47 AM
[2018-11-05 12:06] LABS: Total Protein Peritoneal Fluid 1.8 g/dl
[2018-11-05 12:21] LABS: Appearance Peritoneal Fluid HAZY; Color Peritoneal Fluid PALE YELLOW; Mononuclear WBC Peritoneal 17.3 %; Polynuclear WBC Peritoneal 82.7 %; RBC Peritoneal Fluid (A) < 3000 /uL; WBC Peritoneal Fluid (A) 2918 /ul (0-300)
[2018-11-05] MEDS: OXYCODONE HCL IR 5 MG TAB (IMMEDIATE RELEASE) PO PRN ×2 (16:18→23:42)
[2018-11-06 05:54] LABS: Basophils # (auto) 0.03 K/uL (0-0.2); Basophils % (auto) 0.2 %; Eosinophils # (auto) 0.03 K/uL (0-0.5); Eosinophils % (auto) 0.2 %; Hematocrit (blood only) 28.9 % (42-52); Hemoglobin 9.9 g/dL (14.0-18.0); Immature Granulocytes # (auto) 0.12 K/uL (0.00-0.02); Immature Granulocytes % (auto) 0.9 %; Lymphocytes # (auto) 0.84 K/uL (1.2-3.4); Lymphocytes % (auto) 6.3 %; Mean Corpuscular Hgb Conc 34.3 g/dL (32-36); Mean Corpuscular Volume 72.4 fL (80-100); Mean Platelet Volume 8.5 fL (7.4-10.4); Monocytes # (auto) 2.01 K/uL (0.11-0.59); Monocytes % (auto) 15.1 %; Neutrophils # (auto) 10.27 K/uL (1.4-6.5); Neutrophils % (auto) 77.3 %; Platelet Count 182 K/uL (130-400); RDW Coefficient of Variation 19.8 % (11.5-14.5); RDW Standard Deviation 52.2 fL (36.4-46.3); Red Blood Count 3.99 M/uL (4.7-6.1)
[2018-11-06] MEDS: metroNIDAZOLE 500 MG/100 ML BAG IV SCH (06:29)
[2018-11-06 06:38] LABS: Albumin Globulin Ratio 0.9 (0.9-2); Albumin Level 2.6 gm/dl (3.4-5.0); BUN Creatinine Ratio 22.8 (10-20); Bilirubin,Total 2.3 mg/dl (0.2-1); Calcium 8.2 mg/dl (8.5-10.1); Creatinine Clr Calc Pharmacy 113.2 ml/min; Est GFR (African American) 129.4; Est GFR (Non-African American) 111.6; Globulin 2.8 gm/dl (2.5-4.0); Potassium 3.9 mmol/L (3.5-5.1); Total Protein 5.4 gm/dl (6.4-8.2)
[2018-11-06] MEDS: ATENOLOL 25 MG TABLET PO SCH (08:12)
[2018-11-06] MEDS: PANTOprazole 40 MG TAB PO SCH (08:12)
[2018-11-06] MEDS: FOLIC ACID 1 MG TAB PO SCH (08:13)
[2018-11-06] MEDS: cefTRIAXone SODIUM 1,000 MG in DEXTROSE 5% 50 ML IV SCH (08:13)
[2018-11-06] MEDS: THIAMINE HCL 100 MG TAB PO SCH (08:13)
[2018-11-06] MEDS: OXYCODONE HCL IR 5 MG TAB (IMMEDIATE RELEASE) PO PRN ×2 (08:19→19:23)
--- NOTE | 2018-11-06 08:20 | Gastroenterology Progress Note ---
Date of Service November 06, 2018 Assessment & Plan (1) Anasarca: 58 year old male with history of IBD not on therapy, ETOH cirrhosis reported abstinent from ETOH presenting with fluid overload, ascites. Notes he was started on OP narcotic analgesia for back/knee pain and notes fluid since starting new medication. He had ran out of diuretics as an OP months ago, did not request refill as he was doing well. He is awake, alert and oriented, answering questions appropriately. Paracentesis w/ evidence of SBP, started on IV ABX, albumin to go for repeat paracentesis today. Awake, alert and oriented, tolerating diet w/o any complaints. Leukocytosis and PMN improving on IV ABX, regaining some strength, wants to go home. - Continue ABX to treat SBP for 7 days - Low NA diet - Less than 2G tylenol daily if using - No NSAIDs - Would limit narcotic analgesia - Would reintroduce low dose diuretics - Lasix 20 mg daily - Aldactone 50 mg daily - Monitor kidney function - Outpatient GI follow up in 1-2 weeks - Will discuss SBP prophylaxis w/ attending Thank you for allowing us to participate in the care of this patient. Please call with any acute changes, questions or concerns. Please see addendum below with additional recommendation from my supervising physician. Attg add: I interviewed and examined pt, reviewed chart and labs. "I feel great!" No complaints. Pt with stable abd distention, improved creat, improved WBC. - SBP - Complete 7 days empiric abx, then begin prophylaxis - Ascites - Resume diuretics; of note, ascites is septated, and may be difficult to drain. He is currently on low dose, plan to continue this today with albumin and d/c home on lasix 40/aldactone 100. (2) Cirrhosis: Subjective Pt was seen and evaluated, chart reviewed. Offers no complaints. Is adamant about returning home today. No abd pain. No nausea, vomiting. Tolerating breakfast. No fever, chills, CP, SOB. Review of Systems Constitutional: no fever, no body aches, no fatigue and no insomnia Respiratory: no cough, no dyspnea and no wheezing Cardiovascular: no chest pain, no radiating jaw, neck or arm pain, no dyspnea on exertion and no orthopnea Gastrointestinal: no abdominal pain, no early satiety, no vomiting, no coffee ground emesis, no hematemesis, no blood in stools and no melena Physical Exam Constitutional: + ill appearing, + thin and + cachectic; no acute distress Neck: trachea midline Respiratory: normal respiratory effort, lungs clear to auscultation Cardiovascular: Rate/Rhythm: regular rate and regular rhythm Heart Sounds: no click, no gallop and no cardiac rub Gastrointestinal (Abdomen): Inspection/Auscultation: + abdomen distended and normal bowel sounds Percussion/Palpation: abdomen soft and + ascites (scant); abdomen nontender, no guarding, abdomen not rigid and no abdominal mass Skin: + jaundice Results & Data Vital Signs (Past 12 Hours) Vital Signs Temp Pulse Pulse Resp BP BP Pulse Ox 11/06/18 08:03 36.4 C L 88 16 113/69 95 11/06/18 04:18 36.5 C 85 16 112/73 95 11/06/18 00:04 36.7 C 88 18 120/78 96 11/06/18 00:00 83 (1) Cirrhosis Ascites presence: with ascites Hepatic cirrhosis type: unspecified hepatic cirrhosis Qualified Code(s): K74.60 - Unspecified cirrhosis of liver; R18.8 - Other ascites
[2018-11-06] MEDS: ALBUMIN 25% 50 ML IV SCH (08:49)
--- NOTE | 2018-11-06 09:19 | XRay Report ---
KUB HISTORY: Acute generalized abdominal pain with distention abd distention COMPARISON: CT abdomen and pelvis 11/03/2018 FINDINGS: Blunting of the costophrenic angles. Heart appears enlarged. Air-fluid levels are noted throughout lo ops of small and large bowel with associated mild gaseous distention. No urolith. Demineralized appea irene of the bones. No pneumatosis or pneumoperitoneum. IMPRESSION: 1. Air-fluid levels with mild gaseous distention of both small and large bowel is suggestive of ileus . Obstruction considered less likely. Follow-up recommended. 2. No pneumatosis or pneumoperitoneum. Electronically signed by: Merritt Barnes M.D. 11/06/2018 9:18 AM
--- NOTE | 2018-11-06 13:11 | Hospitalist Progress Note ---
Date of Service November 06, 2018 Assessment & Plan (1) Anasarca: ASCITES/ANASARCA DECOMPENSATED ALCOHOLIC CIRRHOSIS Denies alcohol use since 2 years . MELD:17 -S/P Diagnostic and therapeutic paracentesis on 11/02/18 - 3 L fluid, Positive for SBP -S/P Repeat paracentesis on 11/05/18- WBC and PMN decreasing while on IV Antibiotics -S/P IV Lasix 40 mg daily, Aldactone 50 mg daily (was not on diuretics at home). Held diuetics secondary to elevated creatinine on 11/04/18. Restarted today at Lasix 20 mg, Aldactone 50 mg per GI - discharge meds. -IV Albumin 25% TID - Ok to discontinue today -GI on board- Appreciate inputs. -Work up- Hepatic duplex- neg for PVT, US =- Cirrhosis + SUBACUTE BACTERIAL PERITONITIS Peritoneal fluid culture-Che sensitive E coli, Strep intermedius, Bacteroids thetaiotaomicron -Status post paracentesis on 11/02/2018 3 L-WBC count is around 10k with polymorphonuclear count 77% -Repeated paracentesis on 11/05/2018WBC, PMN count decreased -Leucocytosis trending down, no fever, denies abdominal pain -On IV Rocephin (Day 5), Flagyl q 8 hours (Day 4) ----> Discussed with GI who ideally recommends IV antibiotics for 7 days and than prophylaxis with Cipro 500 mg daily. However patient adamant about leaving tomorrow- so on discharge change to Cipro BID x 2 more days to complete course of 7 days and than change to daily for prophylaxis LEUCOCYTOSIS- Worsened to 27 k and now trending down to 13k Secondary to above -On IV antibiotics as above -Work up- CXR: Suggestive of atelectasis; UA- Neg HX OF ALCOHOLIC CIRRHOSIS H/O Esophageal Varices H/O portal hypertensive gastropathy -To be discharged on Lasix 20 mg, Aldactone 50 mg daily -Hepatic duplex - NEG for PVT, US - Cirrhosis -Follows up with GI outpatient. Has had EGD in past -Follow up appointment with GI scheduled in 2 weeks as per discussion with them CROHN'S DISEASE -Currently not any medications -No acute issues ANKYLOSING SPONDYLITIS -On chronic pain meds- narcotics- oxycodone 2.5 mg QID PRN. 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 Agreeable to stay 1 more night. Adamant about leaving for home tomorrow. Discussed with GI -ideally would need antibiotics for 7 days for SBP, however patient wants to leave. We will plan to transition to oral medications tomorrow at time of discharge Subjective Patient is doing better. Wants to be discharged as concerned about his cat at home. Tearful when I mentioned about keeping him here today. Wants to be discharged tomorrow no matter what, agreeable to staying 1 night. Denies any abdominal pain, nausea, vomiting. Does pass gas, no bowel movement. Tolerating p.o. diet-not much intake though Physical Exam Physical Exam: GENERAL- AAOX3, No acute distress LUNGS- Air entry bilaterally equal. No rales, rhonchi, crackles, wheezes heard. HEART- Regular rate and rhythm. No murmurs ABDOMEN- Soft, ASCITES- ABD DISTENSION, MILD TENDERNESS, Bowel sounds heard. EXTREMITIES- B/L EXT EDEMA + PITTING NEUROMUSCULAR- AAOX3, Grossly no focal deficits Results & Data Vital Signs (Past 12 Hours) Vital Signs Temp Pulse Pulse Resp BP Pulse Ox 11/06/18 11:23 36.6 C 89 18 102/67 94 11/06/18 08:03 36.4 C L 88 16 113/69 95 11/06/18 08:00 79 11/06/18 04:18 36.5 C 85 16 112/73 95
[2018-11-06] MEDS: FUROSEMIDE 20 MG TAB PO SCH (14:15)
[2018-11-06] MEDS ORDERED: ALBUMIN 25% 50 ML IV ONE ×2 (14:30→19:30)
[2018-11-06] MEDS ORDERED: SPIRONOLACTONE 25 MG TAB PO SCH (15:00)
[2018-11-07] MEDS: OXYCODONE HCL IR 5 MG TAB (IMMEDIATE RELEASE) PO PRN ×2 (00:59→08:40)
[2018-11-07 06:48] LABS: Basophils # (auto) 0.01 K/uL (0-0.2); Basophils % (auto) 0.1 %; Eosinophils # (auto) 0.09 K/uL (0-0.5); Eosinophils % (auto) 1.2 %; Hematocrit (blood only) 26.8 % (42-52); Immature Granulocytes # (auto) 0.04 K/uL (0.00-0.02); Immature Granulocytes % (auto) 0.5 %; Lymphocytes # (auto) 0.67 K/uL (1.2-3.4); Lymphocytes % (auto) 8.7 %; Mean Corpuscular Hgb Conc 33.6 g/dL (32-36); Mean Platelet Volume 9.5 fL (7.4-10.4); Monocytes # (auto) 1.14 K/uL (0.11-0.59); Monocytes % (auto) 14.7 %; Neutrophils # (auto) 5.78 K/uL (1.4-6.5); Neutrophils % (auto) 74.8 %; Platelet Count 152 K/uL (130-400); RDW Coefficient of Variation 20.2 % (11.5-14.5); RDW Standard Deviation 54.3 fL (36.4-46.3); Red Blood Count 3.62 M/uL (4.7-6.1); White Blood Count 7.73 K/uL (4.8-10.8)
[2018-11-07 07:21] LABS: Acanthocytes 1+; Anisocytosis Present; Schistocytes 1+
[2018-11-07 07:22] LABS: Albumin Level 2.6 gm/dl (3.4-5.0); Calcium 7.9 mg/dl (8.5-10.1); Creatinine Clr Calc Pharmacy 123.3 ml/min; Est GFR (Non-African American) 115.6; Potassium 3.3 mmol/L (3.5-5.1)
[2018-11-07 07:25] LABS: Albumin Globulin Ratio 0.9 (0.9-2); Bilirubin,Total 1.9 mg/dl (0.2-1); Globulin 2.8 gm/dl (2.5-4.0); Total Protein 5.4 gm/dl (6.4-8.2)
--- NOTE | 2018-11-07 08:26 | Gastroenterology Progress Note ---
Date of Service November 07, 2018 Assessment & Plan (1) Anasarca: 58 year old male with history of IBD not on therapy, ETOH cirrhosis reported abstinent from ETOH presenting with fluid overload, ascites. Notes he was started on OP narcotic analgesia for back/knee pain and notes fluid since starting new medication. He had ran out of diuretics as an OP months ago, did not request refill as he was doing well. He is awake, alert and oriented, answering questions appropriately. Paracentesis w/ evidence of SBP, started on IV ABX, albumin to go for repeat paracentesis today. Awake, alert and oriented, tolerating diet w/o any complaints. Leukocytosis and PMN improving on IV ABX, regaining some strength, wants to go home. - Continue ABX to treat SBP for 7 days - please transition to BID cipro on discharge for full course - Will need daily SBP prophylaxis w/ cipro 500 daily - Low NA diet - Less than 2G tylenol daily if using - No NSAIDs - Would limit narcotic analgesia - Continue low dose diuretics - Lasix 40 mg daily Attg add: I interviewed and examined pt, reviewed chart and labs. Pt without complaint, ok for discharge on regimen as above. - Aldactone 100 mg daily - Monitor kidney function - Outpatient GI follow up in 1-2 weeks Will sign off. No GI contraindication to discharge home today. Thank you for allowing us to participate in the care of this patient. Please call with any acute changes, questions or concerns. Please see addendum below with additional recommendation from my supervising physician. (2) Cirrhosis: Subjective Pt was seen and evaluated, chart reviewed. Wants to go home. Feeling well. No abd pain. No nausea, vomiting. Tolerated 100% breakfast. Passing gas. 2/3 non- bloody semi-formed stools daily. No fever, chills, CP, SOB. Review of Systems Constitutional: no fever, no body aches, no weakness and no weight loss Respiratory: no cough, no dyspnea, no hemoptysis and no wheezing Cardiovascular: no chest pain, no radiating jaw, neck or arm pain, no dyspnea on exertion and no palpitations Gastrointestinal: no abdominal pain, no early satiety, no vomiting, no blood in stools and no melena Physical Exam Constitutional: + ill appearing (chronically ill), + thin and + cachectic; no acute distress Neck: trachea midline Respiratory: normal respiratory effort; no respiratory distress, no labored breathing and no retractions Auscultation: no wheezes Cardiovascular: Rate/Rhythm: regular rate and regular rhythm Heart Sounds: no click, no gallop, no murmur and no cardiac rub Gastrointestinal (Abdomen): Inspection/Auscultation: + abdomen distended (mild ascites) and normal bowel sounds Percussion/Palpation: abdomen soft; abdomen nontender, no guarding and abdomen not rigid Skin: + jaundice; no rashes, no lesions, no ulcers and no wound Results & Data Vital Signs (Past 12 Hours) Vital Signs Temp Pulse Pulse Resp BP BP Pulse Ox 11/07/18 07:01 36.8 C 86 19 101/61 92 11/07/18 04:13 36.7 C 83 20 101/62 93 11/07/18 00:00 80 11/06/18 23:02 36.7 C 86 18 103/62 93 (1) Cirrhosis Ascites presence: with ascites Hepatic cirrhosis type: unspecified hepatic cirrhosis Qualified Code(s): K74.60 - Unspecified cirrhosis of liver; R18.8 - Other ascites
[2018-11-07] MEDS: FUROSEMIDE 20 MG TAB PO SCH (08:35)
[2018-11-07] MEDS: cefTRIAXone SODIUM 1,000 MG in DEXTROSE 5% 50 ML IV SCH (08:35)
[2018-11-07] MEDS: ATENOLOL 25 MG TABLET PO SCH (08:36)
[2018-11-07] MEDS: PANTOprazole 40 MG TAB PO SCH (08:36)
[2018-11-07] MEDS: FOLIC ACID 1 MG TAB PO SCH (08:36)
[2018-11-07] MEDS: THIAMINE HCL 100 MG TAB PO SCH (08:36)
[2018-11-07] MEDS ORDERED: SPIRONOLACTONE 100 MG TAB PO SCH (09:00)
[2018-11-07] MEDS ORDERED: POTASSIUM CHLORIDE 20 MEQ TABCR PO STA (11:29)
--- NOTE | 2018-11-07 11:29 | Hospitalist Progress Note ---
Date of Service November 07, 2018 Assessment & Plan (1) Anasarca: ASCITES/ANASARCA DECOMPENSATED ALCOHOLIC CIRRHOSIS Denies alcohol use since 2 years . MELD:17 S/P Diagnostic and therapeutic paracentesis on 11/02/18 - 3 L fluid, Positive for SBP S/P Repeat paracentesis on 11/05/18- WBC and PMN decreasing while on IV Antibiotics Received intravenous Lasix and oral Aldactone (was not on diuretics at home). Diuretics have been started Received IV Albumin 25% TID GI on board- Appreciate inputs. Work up- Hepatic duplex- neg for PVT, US =- Cirrhosis + Clinically not better today Likely to have another paracentesis today as per GI Discharge home following paracentesis if stable SUBACUTE BACTERIAL PERITONITIS Peritoneal fluid culture-Che sensitive E coli, Strep intermedius, Bacteroids thetaiotaomicron Leucocytosis trending down, no fever, denies abdominal pain On IV Rocephin (Day 5), Flagyl q 8 hours (Day 5 We will continue oral Cipro for 2 days on discharge and 1 tablet daily to continue LEUCOCYTOSIS- Worsened to 27 k and now trending down to 13k Secondary to above On IV antibiotics as above CXR negative for pneumonia White cell count has been normalized HX OF ALCOHOLIC CIRRHOSIS H/O Esophageal Varices H/O portal hypertensive gastropathy To be discharged on Lasix 20 mg, Aldactone 50 mg daily Hepatic duplex - NEG for PVT, US - Cirrhosis Follows up with GI outpatient. Has had EGD in past Has follow-up appointments with GI and PCP CROHN'S DISEASE -Currently not any medications -No acute issues ANKYLOSING SPONDYLITIS -On chronic pain meds- narcotics- oxycodone 2.5 mg QID PRN. 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 GERD -Continue PPI Former smoker DVT Px: SCDs for now Code Status Full Code Disposition: PT/OT - ok to go home Patient wants to go home and he is physically and mentally prepared to go home We will send him home this afternoon He has that appointment with PCP and GI Subjective 11/07 Patient was seen and examined in medical telemetry unit He is a 58-year-old male with history of alcoholic cirrhosis, Crohn's disease, ankylosing spondylitis, GERD, iron deficiency anemia, portal hypertension, esophageal varices, former smoker and other problems presents with history of worsening lower extremity edema, abdominal distention and fullness associated with generalized abdominal pain since 5 days duration Denies any symptoms today Does not have any nausea no vomiting, no fever no chills, no chest pain and/or palpitation White count is normalized Patient wants to go home today Review of Systems Review of Systems: All systems reviewed and are unremarkable except as noted below Gastrointestinal: + bloating Distended but soft Physical Exam Physical Exam: No apparent distress at rest Constitutional: + ill appearing (chronically ill), + thin and + cachectic; no acute distress ENMT: external ear and nose normal, oropharynx normal Neck: trachea midline Respiratory: normal respiratory effort; no respiratory distress, no labored breathing and no retractions Auscultation: + diminished lung sounds (at bases); no wheezes Cardiovascular: Rate/Rhythm: regular rate and regular rhythm Heart Sounds: no click, no gallop, no murmur and no cardiac rub Gastrointestinal (Abdomen): Inspection/Auscultation: + abdomen distended (Moderate to severe distention, soft, tympanic and clinically minimal ascites) and normal bowel sounds Percussion/Palpation: abdomen soft and + ascites (Clinically minimal ); abdomen nontender, no guarding, abdomen not rigid and no abdominal mass Skin: no rashes, warm and dry + jaundice; no rashes, no lesions, no ulcers and no wound Neurologic: moves all extremities Generally weak and lethargic Lymphatic: no cervical or axillary lymphadenopathy Results & Data Vital Signs (Past 12 Hours) Vital Signs Temp Pulse Pulse Resp BP BP Pulse Ox 11/07/18 11:24 36.7 C 81 18 100/58 L 94 11/07/18 08:00 83 11/07/18 07:01 36.8 C 86 19 101/61 92 11/07/18 04:13 36.7 C 83 20 101/62 93 11/07/18 00:00 80 Laboratory Results Short CBC 11/07/18 Range/Units 06:37 WBC 7.73 (4.8-10.8) K/uL Hgb 9.0 L (14.0-18.0) g/dL Hct 26.8 L (42-52) % Plt Count 152 (130-400) K/uL BMP 11/07/18 06:37 Sodium 140 Potassium 3.3 L D Chloride 108 H Carbon Dioxide 25 BUN 11 Creatinine 0.56 L Glucose 97 Calcium 7.9 L Liver Function 11/07/18 Range/Units 06:37 Total Bilirubin 1.9 H (0.2-1) mg/dl AST 14 L (15-37) U/L ALT 10 L (12-78) U/L Alkaline Phosphatase 56 (45-117) U/L Albumin 2.6 L (3.4-5.0) gm/dl
--- NOTE | 2018-11-08 07:28 | Discharge Summary ---
Date of Service November 08, 2018 Admission HPI Per Admitting Provider Patient is a 58-year-old male with history of alcoholic cirrhosis, Crohn's disease, ankylosing spondylitis, GERD, iron deficiency anemia, portal hypertension, esophageal varices, former smoker and other problems presents with history of worsening lower extremity edema, abdominal distention and fullness associated with generalized abdominal pain since 5 days duration. Bilateral lower extremity leg swelling has been progressively getting worse since past 6 weeks as per patient. Abdominal pain is generalized, dull aching, nonradiating,6/10 intensity, no aggravating or relieving factors, associated with poor appetite. Currently patient is not on any diuretics. He was previously on Lasix 20 mg daily. He reports having low grade fever 3 days ago which resolved. Complaints of frontal headache with intermittent dizziness, associated with" wobbly" gait, uses a cane for ambulation. Denies any history of fall, head trauma. Follows with gastroenterology, Dr. Hernadez as outpatient. States that he quit drinking alcohol 2 years ago. Denies any history of chest pain, SOB, cough, hemoptysis, nausea, vomiting, blood in stools, diarrhea, dysuria. Admission Exam Per Admitting Provider Physical Exam: Physical Exam: Vitals signs as noted above General Appearance:Chronic ill appearing, thin, frail, no apparent distress Head: normocephalic, Atraumatic Eyes: normal inspection, EOMI Neck: supple, Trachea midline Respiratory/Chest: Normal breath sounds, CTA Cardiovascular: S1, S2, + murmur Abdomen/GI:Soft, Distended, generalized tender, No guarding/rigidity, Bowel sounds present Extremities/Musculoskelatal:normal inspection, 2-3 + B/L LE edema Spine: Limited ROM of Spine due to Ankylosing Spondylitis Neurologic/Psych:AAOX3, grossly no focal neurological deficits Skin: normal color, warm Principal Diagnosis S BP, alcoholic cirrhosis with recurrent ascites, Crohn's disease-stable, ankylosing spondylitis Discharge Exam Constitutional + ill appearing (chronically ill), + thin and + cachectic; no acute distress ENMT external ear and nose normal, oropharynx normal Neck trachea midline Respiratory normal respiratory effort, lungs clear to auscultation normal respiratory effort; no respiratory distress, no labored breathing and no retractions Auscultation: + diminished lung sounds (at bases); no wheezes Cardiovascular Rate/Rhythm: regular rate and regular rhythm Heart Sounds: no click, no gallop, no murmur and no cardiac rub Gastrointestinal (Abdomen) Inspection/Auscultation: + abdomen distended (Moderate to severe distention, soft, tympanic and clinically minimal ascites) and normal bowel sounds Percussion/Palpation: abdomen soft and + ascites (Clinically minimal ); abdomen nontender, no guarding, abdomen not rigid and no abdominal mass Skin no rashes, warm and dry + jaundice; no rashes, no lesions, no ulcers and no wound Neurologic moves all extremities Lymphatic no cervical or axillary lymphadenopathy Discharge Data Allergies Allergy/AdvReac Type Severity Reaction Status Date / Time adalimumab Allergy Severe RASH Verified 11/02/18 12:23 etanercept Allergy Severe RASH Verified 11/02/18 12:23 shellfish derived Allergy Severe Anaphylaxis Verified 11/02/18 12:23 tromethamine Allergy Severe RASH Verified 11/02/18 12:23 Penicillins Allergy Intermediate PASSED OUT Verified 11/02/18 12:23 bee venom protein (honey bee) Allergy Unknown PASSED OUT Verified 11/02/18 12:23 benzyl alcohol Allergy Unknown RASH Verified 11/02/18 12:23 mouse protein Allergy Unknown FACE AND Verified 11/02/18 12:23 MOUTH SWELL secukinumab Allergy Unknown FACE AND Verified 11/02/18 12:23 MOUTH SWELL sorbitan esters Allergy Unknown FACE AND Verified 11/02/18 12:23 MOUTH SWELL varenicline AdvReac Unknown VEINS IN Verified 11/02/18 12:23 FEET BLEW Consultations 11/02/18 13:19 ED Decision to Admit Stat 11/02/18 17:20 Consult Case Management - Discharge Planning Routine Consult Gastroenterology Routine Ordered Studies 11/02/18 15:15 US duplex portal hepatic veins Stat 11/02/18 15:16 US liver Stat 11/02/18 17:49 US paracentesis abd w/image Urgent 11/03/18 14:26 CT abd pelvis oral and IV con Urgent 11/05/18 08:24 US paracentesis abd w/image Routine Hospital Course (1) Anasarca: ASCITES/ANASARCA DECOMPENSATED ALCOHOLIC CIRRHOSIS Denies alcohol use since 2 years . MELD:17 S/P Diagnostic and therapeutic paracentesis on 11/02/18 - 3 L fluid, Positive for SBP S/P Repeat paracentesis on 11/05/18- WBC and PMN decreasing while on IV An tibiotics Received intravenous Lasix and oral Aldactone (was not on diuretics at home). Diuretics have been started Received IV Albumin 25% TID GI on board- Appreciate inputs. Work up- Hepatic duplex- neg for PVT, US =- Cirrhosis + Clinically not better today Likely to have another paracentesis today as per GI Discharge home following paracentesis if stable SUBACUTE BACTERIAL PERITONITIS Peritoneal fluid culture-Che sensitive E coli, Strep intermedius, Bacteroids thetaiotaomicron Leucocytosis trending down, no fever, denies abdominal pain On IV Rocephin (Day 5), Flagyl q 8 hours (Day 5 We will continue oral Cipro for 2 days on discharge and 1 tablet daily to continue LEUCOCYTOSIS- Worsened to 27 k and now trending down to 13k Secondary to above On IV antibiotics as above CXR negative for pneumonia White cell count has been normalized HX OF ALCOHOLIC CIRRHOSIS H/O Esophageal Varices H/O portal hypertensive gastropathy To be discharged on Lasix 20 mg, Aldactone 50 mg daily Hepatic duplex - NEG for PVT, US - Cirrhosis Follows up with GI outpatient. Has had EGD in past Has follow-up appointments with GI and PCP CROHN'S DISEASE -Currently not any medications -No acute issues ANKYLOSING SPONDYLITIS -On chronic pain meds- narcotics- oxycodone 2.5 mg QID PRN. 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 GERD -Continue PPI Former smoker DVT Px: SCDs for now Code Status Full Code Disposition: PT/OT - ok to go home Patient wants to go home and he is physically and mentally prepared to go home We will send him home this afternoon He has that appointment with PCP and GI Total Time Total Time Spent Total Time Spent (In Minutes): 35 minutes Total Time Includes: Examination of the Patient, Discharge Planning, Medication Reconciliation and Communication With Other Providers Discharge Plan Discharge Items Patient Disposition: Home - Self-Care Reason For Visit: ANASARCA Discharge Diagnosis: S BP, alcoholic cirrhosis with recurrent ascites, Crohn's disease-stable, ankylosing spondylitis Condition: Fair Discharge Goals: Decrease discomfort, Improve function and Increase independence Activity: Resume your previous activity Non-emergency contact: Primary Care Provider Call non-emergency contact if: you have any medication questions and your symptoms worsen Follow-up/Referrals: Mary Díaz MD [Primary Care Provider] - (Has appointment with PCP and GI) Diet: Low Sodium (2gm) Addtl Provider Instructions: Please take precaution to avoid fall Prescriptions: New spironolactone 100 mg Tablet 100 mg PO QAM 30 Days Qty: 30 RF: 0 thiamine HCl (vitamin B1) [Vitamin B-1] 100 mg Tablet 100 mg PO QAM 30 Days Qty: 30 RF: 0 folic acid 1 mg Tablet 1 mg PO QAM 30 Days Qty: 30 RF: 0 ciprofloxacin HCl [Cipro] 500 mg tablet 500 mg PO BID Qty: 4 RF: 0 ciprofloxacin HCl [Cipro] 500 mg tablet 500 mg PO DAILY Qty: 30 RF: 0 furosemide [Lasix] 40 mg tablet 40 mg PO DAILY Qty: 30 RF: 0 Continued bisacodyl [Dulcolax (bisacodyl)] 5 mg Tablet,Delayed Release (Dr/Ec) 5 mg PO DAILY PRN (Reason: Constipation) RF: 0 polyethylene glycol 3350 [Miralax] 17 gram/dose Powder 17 g PO 3XWK PRN (Reason: Constipation) RF: 0 atenolol 25 mg Tablet 25 mg PO QAM RF: 0 pantoprazole 40 mg Tablet,Delayed Release (Dr/Ec) 40 mg PO QAM RF: 0 oxycodone 5 mg Tablet 2.5 mg PO QID PRN (Reason: Pain) RF: 0 Stand-Alone Forms: [facility] Discharge Orders: Discharge Order (Routine); Ordered 11/07/18 Ordered By: Jovany Bermudez Admission Data Admit Date/Time: 11/02/18 14:19 Attending Provider: Jovany Bermudez Admit Provider: Roney Trujillo Primary Care Provider: Mary Díaz Other Providers: Roney Trujillo ; Anuja Hernadez ; Jessy Eden Service: Telemetry Medical Other Interventions: Discharge Summary Assessment (RN) Last Done: 11/07/18 14:27 DC Date/Time DO NOT enter until pt leaves facility: 11/07/18 14:52
== END 2018-11-07 14:52 | disposition home or self-care (01) | DRG 432 ==
LOC: ED 10:06 → SUATTDRO 14:19 → 2N 14:19
DX: D72.829 Elevated white blood cell count, unspecified; Z88.0 Allergy status to penicillin; Z87.891 Personal history of nicotine dependence; K70.31 Alcoholic cirrhosis of liver with ascites; K65.2 Spontaneous bacterial peritonitis; R18.8 Other ascites; F10.21 Alcohol dependence, in remission; K50.90 Crohn's disease, unspecified, without complications; R60.1 Generalized edema; M45.9 Ankylosing spondylitis of unspecified sites in spine; K21.9 Gastro-esophageal reflux disease without esophagitis

== ENCOUNTER 2019-09-05 20:40 | Inpatient (IN) ==
[2019-09-05] MEDS ORDERED: PANTOprazole 40 MG in SYRINGE 0 ML IV ONE (20:48)
[2019-09-05] MEDS ORDERED: FAMOTIDINE 20MG IV PUSH 20 MG/5 ML SYR IV STA (20:48)
[2019-09-05] MEDS ORDERED: SODIUM CHLORIDE 0.9% 500 ML IV SCH (21:00)
[2019-09-05 21:06] LABS: Basophils # (auto) 0.03 K/uL (0-0.2); Basophils % (auto) 0.3 %; Eosinophils # (auto) 0.11 K/uL (0-0.5); Eosinophils % (auto) 1.3 %; Hematocrit (blood only) 32.6 % (42-52); Hemoglobin 10.6 g/dL (14.0-18.0); Immature Granulocytes # (auto) 0.01 K/uL (0.00-0.02); Immature Granulocytes % (auto) 0.1 %; Lymphocytes # (auto) 0.89 K/uL (1.2-3.4); Lymphocytes % (auto) 10.1 %; Mean Corpuscular Hgb Conc 32.5 g/dL (32-36); Mean Corpuscular Volume 76.9 fL (80-100); Mean Platelet Volume 9.8 fL (7.4-10.4); Monocytes # (auto) 0.79 K/uL (0.11-0.59); Neutrophils # (auto) 6.95 K/uL (1.4-6.5); Neutrophils % (auto) 79.2 %; Platelet Count 171 K/uL (130-400); RDW Coefficient of Variation 19.4 % (11.5-14.5); RDW Standard Deviation 54.8 fL (36.4-46.3); Red Blood Count 4.24 M/uL (4.7-6.1); White Blood Count 8.78 K/uL (4.8-10.8)
[2019-09-05] MEDS ORDERED: LORazepam 0.5 MG/1 ML VIAL IV STA (21:11)
[2019-09-05] MEDS ORDERED: fentaNYL citrate 100 MCG/2 ML VIAL IV PRN (21:11)
--- NOTE | 2019-09-05 21:11 | XRay Report ---
XR chest 1V portable CLINICAL HISTORY: vomiting COMPARISON STUDY: Chest radiograph November 14, 2018. FINDINGS: Lung volumes are normal. Lungs are clear. There is no pneumothorax or pleural effusion. Car diac size is normal. Mediastinal contours are normal. There is no evidence for pulmonary edema. IMPRESSION: No acute cardiopulmonary findings. ACT 112: Negative or not required by law. Electronically signed by: Raul Burkett M.D. 09/05/2019 9:09 PM
[2019-09-05 21:14] LABS: iSTAT Creatinine 0.5 mg/dl (0.6-1.3); iSTAT Hemoglobin 11.2 g/dl (14.0-18.0); iSTAT Ionized Calcium 1.12 mmol/l (1.12-1.32); iSTAT Potassium 3.4 mmol/L (3.3-5.0)
[2019-09-05] MEDS ORDERED: IOVERSOL 100ml IV PRN (21:15)
[2019-09-05 21:22] LABS: Alanine Aminotransferase 21 U/L (12-78); Albumin Level 2.8 gm/dl (3.4-5.0); Aspartate Aminotransferase 21 U/L (15-37); BUN Creatinine Ratio 13.9 (10-20); Blood Urea Nitrogen 11 mg/dl (7-18); Calcium 8.5 mg/dl (8.5-10.1); Carbon Dioxide 27 mmol/L (21-32); Chloride 103 mmol/L (98-107); Creatinine Clr Calc Pharmacy 86.3 ml/min; Est GFR (African American) 117.4; Est GFR (Non-African American) 101.3; Glucose 115 mg/dl (70-99); Lipase 134 U/L (73-393); Potassium 3.3 mmol/L (3.5-5.1); Sodium 137 mmol/L (136-145)
[2019-09-05 21:26] LABS: Albumin Globulin Ratio 0.7 (0.9-2); Alkaline Phosphatase 102 U/L (45-117); Bilirubin,Total 1.4 mg/dl (0.2-1); Globulin 4.1 gm/dl (2.5-4.0); Total Protein 6.9 gm/dl (6.4-8.2); Troponin I < 0.015 ng/ml (0-0.045)
--- NOTE | 2019-09-05 21:31 | Emergency Department Note ---
History of Present Illness General Chief complaint: Vomiting Time Seen by Provider: 09/05/19 20:42 History of Present Illness Maximum Pain Intensity: 8 The patient is a 59-year-old male who presented to the emergency department for an evaluation of epigastric pain. The patient started having epigastric pain earlier in the day. He states that this pain was worsened with food. He start ed noticing radiation of the pain to his back. He started having epigastric pain as well as nausea vomiting. The patient had approximately 8 episodes of emesis and then also noted some blood in his emesis. The patient has a history of cirrhosis. The patient states he has no specific chest pain. He denies having any difficulty breathing or headache. He has had no fever. He is had no cough or traveling. He does notice lower extremity swelling which is not worsened from baseline. Patient has not been seen by his primary care physician for the symptoms. The patient arrived via EMS. He was treated with antinausea medication prior to arrival. The patient states that his nausea is signi ficantly improved at this time. Home Medications Home Medications Medication Instructions Recorded Confirmed Type atenolol 25 mg PO QAM 03/16/18 09/05/19 History oxycodone 7.5 mg PO QID PRN 03/16/18 09/05/19 History pantoprazole 40 mg PO QAM 03/16/18 09/05/19 History bisacodyl [Dulcolax (bisacodyl)] 5 mg PO DAILY PRN 08/30/18 09/05/19 History polyethylene glycol 3350 [Miralax] 17 g PO DAILY PRN 08/30/18 09/05/19 History Florastor 250 mg PO DAILY 12/07/18 09/05/19 History folic acid 1 mg PO QAM 04/12/19 09/05/19 History ciprofloxacin HCl 500 mg PO QAM 09/05/19 09/05/19 History furosemide 20 mg PO QAM 09/05/19 09/05/19 History thiamine HCl (vitamin B1) [Vitamin 100 mg PO QAM 09/05/19 09/05/19 History B-1] Allergies Allergy/AdvReac Type Severity Reaction Status Date / Time adalimumab Allergy Severe RASH Verified 09/05/19 21:49 etanercept Allergy Severe RASH Verified 09/05/19 21:49 shellfish derived Allergy Severe Anaphylaxis Verified 09/05/19 21:49 tromethamine Allergy Severe RASH Verified 09/05/19 21:49 Penicillins Allergy Intermediate PASSED OUT Verified 09/05/19 21:49 bee venom protein (honey bee) Allergy Unknown PASSED OUT Verified 09/05/19 21:49 benzyl alcohol Allergy Unknown RASH Verified 09/05/19 21:49 mouse protein Allergy Unknown FACE AND Verified 09/05/19 21:49 MOUTH SWELL secukinumab Allergy Unknown FACE AND Verified 09/05/19 21:49 MOUTH SWELL sorbitan esters Allergy Unknown FACE AND Verified 09/05/19 21:49 MOUTH SWELL varenicline AdvReac Unknown VEINS IN Verified 09/05/19 21:49 FEET BLEW Past Med/Surg History Medical History Ankylosing spondylitis Cirrhosis of liver Crohns disease Encounter for pre-operative examination Esophageal varices with banding GERD (gastroesophageal reflux disease) Hypertension Mitral valve prolapse ?pt states some providers say he does, 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 say he doesnt--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 Peritonitis with abscess of intestine pt reports abscess drained in October [facility], treated and remains on abx Rheumatoid arthritis Surgical History History of abdominal paracentesis History of colonoscopy most recent 08/2018 [facility] History of esophagogastroduodenoscopy (EGD) History of right inguinal hernia repair had 1 umbilical hernia repair at same time History of tonsillectomy and adenoidectomy History of tooth extraction wisdom teeth History of umbilical hernia repair ruptured and repaired 07/2017 Family History Mother Family history of reaction to anesthesia "slow to wake up a couple different times" Father Lung cancer Social History Preferred Language: Japanese Communication Ability: Effective Microbiology Analyst Required: No Beliefs That Will Affect Care: None Current Living Situation: Alone Feels Safe at Home: Yes Smoking Status: Current every day smoker Tobacco Type: cigarettes ; Cigarettes Per Day: 10 per day ; Second Hand Exposure: No ; Hx Alcohol Use: No Hx Substance Use: No Review of Systems See HPI for pertinent positives & negatives. and A total of 10 systems reviewed and were otherwise negative Physical Exam Vital Signs Vital Signs - 24 hr 09/05/19 20:49 09/05/19 20:54 09/05/19 21:42 Temperature 36.9 C Temperature Source Oral Pulse Rate 93 H Pulse Rate [Right] 74 Pulse Rhythm [Right] Regular Pulse Strength [Right] Normal Respiratory Rate 18 16 Respiratory Effort / Characteristics Non-Labored Spontaneous Non-Labored Spontaneous Respiratory Depth Normal Normal Blood Pressure 137/74 Blood Pressure [Right Arm] 129/71 Blood Pressure Mean 95 Blood Pressure Mean [Right Arm] 90 Blood Pressure Position [Right Arm] Sitting Pulse Oximetry 97 99 97 Oxygen Delivery Method Room Air Room Air Room Air Oxygen Flow Rate Sepsis Recent Fever Within 48 Hours No Sepsis New/Unexplained Change in Mental Status No Sepsis Action Taken by Nursing No Action Required 09/05/19 22:51 09/05/19 22:56 09/05/19 23:31 Temperature Temperature Source Pulse Rate Pulse Rate [Right] 70 83 Pulse Rhythm [Right] Pulse Strength [Right] Respiratory Rate 18 18 Respiratory Effort / Characteristics Respiratory Depth Blood Pressure Blood Pressure [Right Arm] 113/59 L 121/68 Blood Pressure Mean Blood Pressure Mean [Right Arm] 77 85 Blood Pressure Position [Right Arm] Pulse Oximetry 88 L 97 97 Oxygen Delivery Method Room Air Nasal Cannula Nasal Cannula Oxygen Flow Rate 2 2 Sepsis Recent Fever Within 48 Hours Sepsis New/Unexplained Change in Mental Status Sepsis Action Taken by Nursing GENERAL: The patient is awake and alert. He is somewhat anxious appearing and cachectic appearing. EYES: The conjunctivae are clear. The pupils are round and reactive. EARS, NOSE, MOUTH AND THROAT: The nose is without any evidence of any deformity. Mucous membranes are dry. NECK: The neck is nontender and supple. RESPIRATORY: Diminished breath sounds are noted at both bases. There is no tachypnea or conversational dyspnea. CARDIOVASCULAR: Regular rate and rhythm noted there no murmurs rubs or gallops normal S1 normal S2. GASTROINTESTINAL: The abdomen is moderately distended and diffusely tender. There is no guarding but tenderness is specifically in the epigastric region. MUSCULOSKELETAL/EXTREMITIES: There is no evidence of gross deformity full range of motion is noted in the hips and shoulders. SKIN: Venous stasis changes are noted. There is bilateral lower extremity edema. Skin is warm and dry. NEUROLOGIC: Patient is awake alert and oriented x3. Course Course 2209: The patient was reevaluated and was feeling much better. 2240: I discussed this case with Dr. Rogers. He is agreed to evaluate the patient in the emergency department for further management and disposition. Administered Medications Fentanyl Citrate (Fentanyl Citrate) 50 mcg IV Q15M PRN PRN Reason: Pain Stop: 09/19/19 21:10 Last Admin: 09/05/19 21:15 Dose: 50 mcg Documented by: [id number] Ioversol (Optiray 320 100ml) 94 ml IV ONCE PRN PRN Reason: Interaction Checking Stop: 09/09/19 21:14 Last Admin: 09/05/19 21:15 Dose: 94 ml Documented by: [id number] Discontinued Medications Pantoprazole Sodium 40 mg/ (Syringe) 10 mls @ 5 mls/min IV NOW ONE Stop: 09/05/19 20:49 Last Admin: 09/05/19 21:09 Dose: 5 mls/min Documented by: [id number] Famotidine (Pepcid 20mg Iv Push) 20 mg in 5 mls @ 2.5 mls/min IV NOW STA Stop: 09/05/19 20:49 Last Admin: 09/05/19 21:01 Dose: 2.5 mls/min Documented by: [id number] Sodium Chloride (Nss) 500 mls @ 999 mls/hr IV .Q31M KAILA Stop: 09/05/19 21:30 Last Infusion: 09/05/19 21:34 Dose: 0 mls/hr Documented by: [id number] Admin: 09/05/19 21:01 Dose: 999 mls/hr Documented by: [id number] Lorazepam (Ativan) 0.5 mg in 1 mls @ 1 mls/min IV NOW STA Stop: 09/05/19 21:12 Last Admin: 09/05/19 21:15 Dose: 1 mls/min Documented by: [id number] Cefoxitin Sodium (Mefoxin) 1,000 mg in 50 mls @ 100 mls/hr IV NOW STA Stop: 09/05/19 23:36 Last Admin: 09/05/19 23:24 Dose: 100 mls/hr Documented by: [id number] Critical Care Time Critical Care Time: Yes Total Critical Care Time: 35 I have personally spent greater than 35 minutes of critical care time in the direct management of this patient. This includes bedside care, interpretation of diagnostic studies, and testing, discussion with consultants, patient, and family members, and other required patient management activities. This 35 minutes is in excess of all separately billable procedures. Medical Decision Making Differential Diagnosis Etiologies such as appendicitis, diverticulitis, obstruction, inflammatory bowel disease, renal colic, PUD, biliary pathology, pancreatitis, mesenteric ischemia, aortic pathology, infections, genitourinary, UTI, perforated viscus, as well as others were entertained. Laboratory Data Result diagrams: 09/05/19 20:55 09/05/19 20:55 Lab Results 09/05/19 09/05/19 09/05/19 Range/Units 20:55 20:55 20:55 WBC 8.78 (4.8-10.8) K/uL RBC 4.24 L (4.7-6.1) M/uL Hgb 10.6 L (14.0-18.0) g/dL POC Hgb (14.0-18.0) g/dl Hct 32.6 L (42-52) % POC Hct (42-52) % MCV 76.9 L (80-100) fL MCH 25.0 (25-34) pg MCHC 32.5 (32-36) g/dL RDW Std Deviation 54.8 H (36.4-46.3) fL RDW Coeff of Ronnie 19.4 H (11.5-14.5) % Plt Count 171 (130-400) K/uL MPV 9.8 (7.4-10.4) fL Immature Gran % (Auto) 0.1 % Neut % (Auto) 79.2 % Lymph % (Auto) 10.1 % Freeborn % (Auto) 9.0 % Eos % (Auto) 1.3 % Baso % (Auto) 0.3 % Immature Gran # (Auto) 0.01 (0.00-0.02) K/uL Neut # (Auto) 6.95 H (1.4-6.5) K/uL Lymph # (Auto) 0.89 L (1.2-3.4) K/uL Free[place] # (Auto) 0.79 H (0.11-0.59) K/uL Eos # (Auto) 0.11 (0-0.5) K/uL Baso # (Auto) 0.03 (0-0.2) K/uL POC Sodium (135-144) mmol/L Sodium 137 (136-145) mmol/L POC Potassium (3.3-5.0) mmol/L Potassium 3.3 L (3.5-5.1) mmol/L POC Chloride (101-112) mmol/L Chloride 103 (98-107) mmol/L Carbon Dioxide 27 (21-32) mmol/L POC Total CO2 (24-31) mEq/l Anion Gap 7.0 (3-11) POC Anion Gap (16-25) mmol/L POC BUN (7-18) mg/dl BUN 11 (7-18) mg/dl Creatinine 0.76 (0.6-1.4) mg/dl POC Creatinine (0.6-1.3) mg/dl Est Cr Clr Drug Dosing 86.3 ml/min Est GFR ( Amer) 117.4 Est GFR (Non-Af Amer) 101.3 BUN/Creatinine Ratio 13.9 (10-20) Glucose 115 H (70-99) mg/dl POC Glucose (other) (70-99) mg/dl Calcium 8.5 (8.5-10.1) mg/dl POC Ioniz Calcium Tavares (1.12-1.32) mmol/l Magnesium 1.5 L (1.8-2.4) mg/dl Total Bilirubin 1.4 H (0.2-1) mg/dl AST 21 (15-37) U/L ALT 21 (12-78) U/L Alkaline Phosphatase 102 (45-117) U/L Troponin I < 0.015 (0-0.045) ng/ml Total Protein 6.9 (6.4-8.2) gm/dl Albumin 2.8 L (3.4-5.0) gm/dl Globulin 4.1 H (2.5-4.0) gm/dl Albumin/Globulin Ratio 0.7 L (0.9-2) Lipase 134 (73-393) U/L Blood Type Antibody Screen 09/05/19 09/05/19 Range/Units 20:57 21:01 WBC (4.8-10.8) K/uL RBC (4.7-6.1) M/uL Hgb (14.0-18.0) g/dL POC Hgb 11.2 L (14.0-18.0) g/dl Hct (42-52) % POC Hct 33 L (42-52) % MCV (80-100) fL MCH (25-34) pg MCHC (32-36) g/dL RDW Std Deviation (36.4-46.3) fL RDW Coeff of Ronnie (11.5-14.5) % Plt Count (130-400) K/uL MPV (7.4-10.4) fL Immature Gran % (Auto) % Neut % (Auto) % Lymph % (Auto) % Freeborn % (Auto) % Eos % (Auto) % Baso % (Auto) % Immature Gran # (Auto) (0.00-0.02) K/uL Neut # (Auto) (1.4-6.5) K/uL Lymph # (Auto) (1.2-3.4) K/uL Free[place] # (Auto) (0.11-0.59) K/uL Eos # (Auto) (0-0.5) K/uL Baso # (Auto) (0-0.2) K/uL POC Sodium 137 (135-144) mmol/L Sodium (136-145) mmol/L POC Potassium 3.4 (3.3-5.0) mmol/L Potassium (3.5-5.1) mmol/L POC Chloride 99 L (101-112) mmol/L Chloride (98-107) mmol/L Carbon Dioxide (21-32) mmol/L POC Total CO2 24 (24-31) mEq/l Anion Gap (3-11) POC Anion Gap 18.0 (16-25) mmol/L POC BUN 10 (7-18) mg/dl BUN (7-18) mg/dl Creatinine (0.6-1.4) mg/dl POC Creatinine 0.5 L (0.6-1.3) mg/dl Est Cr Clr Drug Dosing ml/min Est GFR ( Amer) Est GFR (Non-Af Amer) BUN/Creatinine Ratio (10-20) Glucose (70-99) mg/dl POC Glucose (other) 114 H (70-99) mg/dl Calcium (8.5-10.1) mg/dl POC Ioniz Calcium Tavares 1.12 (1.12-1.32) mmol/l Magnesium (1.8-2.4) mg/dl Total Bilirubin (0.2-1) mg/dl AST (15-37) U/L ALT (12-78) U/L Alkaline Phosphatase (45-117) U/L Troponin I (0-0.045) ng/ml Total Protein (6.4-8.2) gm/dl Albumin (3.4-5.0) gm/dl Globulin (2.5-4.0) gm/dl Albumin/Globulin Ratio (0.9-2) Lipase (73-393) U/L Blood Type O Positive Antibody Screen NEGATIVE Imaging Data Radiologist's Impression: CT OF THE ABDOMEN AND PELVIS WITH CONTRAST CLINICAL HISTORY: Epigastric pain. Hematemesis. COMPARISON STUDY: CT of the abdomen and pelvis December 07, 2018. TECHNIQUE: Following IV administration of 94 mL of Optiray-320, axial images of the abdomen and pelvis were obtained from the lung bases to the proximal femurs. Images were reviewed in the axial, sagittal, and coronal planes. IV contrast was administered without complication. Automated exposure control was utilized for the study. A dose lowering technique was utilized adhering to the principles of ALARA. CT DOSE: 408.66 mGy.cm FINDINGS: Imaged portions of the lower chest demonstrate mild emphysema. No pneumatosis, free air or portal venous gas is present. The liver is cirrhotic. Sensitivity for detection of hypervascular lesions is diminished on this portal venous phase exam but no hepatic lesions are identified. There is mild splenomegaly. A small amount of ascites within the abdomen and pelvis is noted. Extensive collateral formation is again shown, including esophageal varices. The adrenal glands, kidneys and pancreas are unremarkable double. There is no biliary or pancreatic ductal dilatation. This exam is mildly compromised by artifact. The main, left and right portal veins are patent. The superior mesenteric vein is patent. Moderate plaque of the abdominal aorta is noted. There is no hydronephrosis. The mid small bowel is moderately dilated and fluid- filled. There is a transition point within the central abdomen on image 257 of 416. The distal small bowel is decompressed. Wall thickening of ileal loops is noted. This has been shown on prior exams. No abscess is present. No lymphadenopathy is noted. Interval development of compression fractures of L2, L3 and L4 and possibly L5 since CT of November 07, 2018 is noted. The L2 fracture extends through the posterior elements. This is probably subacute to chronic. Ankylosis of the sacroiliac joints is noted with anterior osteophytosis within the spine. IMPRESSION: 1. Moderately dilated fluid-filled mid small bowel with discrete transition point within the central abdomen with decompressed distal small bowel. This represents a moderate grade small bowel obstruction. 2. Cirrhosis with manifestations of portal hypertension including extensive va rices formation, mild splenomegaly and a small amount of ascites. 3. Interval development of L2, L3 and L4 compression fractures since CT of December 07, 2018. L2 fracture extends through the posterior elements and therefore may be unstable. This fracture appears subacute to chronic. 4. Wall thickening of several ileal loops which has been shown on prior exams and may be related to inflammatory bowel disease such as Crohn's disease. 5. Osseous findings suggestive of ankylosing spondylitis. ACT 112: Negative or not required by law. Electronically signed by: Raul Burkett M.D. 09/05/2019 10:09 PM Dictated: 09/05/192136 Transcribed: 09/05/192136 XR chest 1V portable CLINICAL HISTORY: vomiting COMPARISON STUDY: Chest radiograph November 14, 2018. FINDINGS: Lung volumes are normal. Lungs are clear. There is no pneumothorax or pleural effusion. Cardiac size is normal. Mediastinal contours are normal. There is no evidence for pulmonary edema. IMPRESSION: No acute cardiopulmonary findings. ACT 112: Negative or not required by law. Electronically signed by: Raul Burkett M.D. 09/05/2019 9:09 PM Dictated: 09/05/192105 Transcribed: 09/05/192105 ECG Data Attestation: I personally reviewed and interpreted this ECG as follows: Indication: + abdominal pain Rate (beats per minute): 79 Additional Comments: EKG was obtained in the emergency department. My interpretation is normal sinus rhythm at 79 bpm. There is no ectopy. There were no acute ST segments noted. Anterior Q waves were noted. No significant change was noted compared to a tracing from November 14, 2018. Blood Pressure Blood Pressure Findings: Normal blood pressure MDM Narrative The patient is a 59-year-old male who presented to the emergency department for an evaluation of nausea vomiting. The patient is a history of cirrhosis. He has a history of esophageal varices. He had approximately 7-8 episodes of emesis and then noticed blood in his emesis. The patient was treated with antiemetics in the emergency department. He was also treated with IV fluids proton pump inhibitors and H2 blockers. He was feeling much better on subsequent reevaluation. He was treated with pain medicine as well. I discussed the patient's laboratory and radiographic studies with him. He was found to have a stable hemoglobin. He was not tachycardic. He was found to have signs of bowel obstruction on CT the abdomen and pelvis. I discussed the patient's condition with the on-call [facility] hospitalist group. They have agreed to evaluate the patient in the emergency department for further management and disposition. I discussed this plan with the patient and he was agreeable. Impression & Plan SBO (small bowel obstruction), Abdominal pain, Acute upper GI bleed, Vomiting Discharge Plan Visit Data Chief Complaint: Vomiting ED Provider: Nakul Fonseca Discharge Problem: SBO (small bowel obstruction), Abdominal pain, Acute upper GI bleed, Vomiting Patient Disposition: Being Evaluated by Hospitalist Condition: Good Discharge Instructions Interventions: ED Discharge Assessment Last Done: 09/05/19 23:37 Forms Stand Alone Forms: [facility] Prescriptions Prescriptions: No Action bisacodyl [Dulcolax (bisacodyl)] 5 mg Tablet,Delayed Release (Dr/Ec) 5 mg PO DAILY PRN (Reason: Constipation) RF: 0 polyethylene glycol 3350 [Miralax] 17 gram/dose Powder 17 g PO DAILY PRN (Reason: Constipation) RF: 0 folic acid 1 mg Tablet 1 mg PO QAM RF: 0 atenolol 25 mg Tablet 25 mg PO QAM RF: 0 pantoprazole 40 mg Tablet,Delayed Release (Dr/Ec) 40 mg PO QAM RF: 0 oxycodone 5 mg Tablet 7.5 mg PO QID PRN (Reason: Pain) RF: 0 Florastor 250 mg capsule 250 mg PO DAILY RF: 0 thiamine HCl (vitamin B1) [Vitamin B-1] 100 mg tablet 100 mg PO QAM RF: 0 ciprofloxacin HCl 500 mg tablet 500 mg PO QAM RF: 0 furosemide 20 mg tablet 20 mg PO QAM RF: 0 Referrals Referrals: Howard Black DO [Primary Care Provider] - Discharge Problem: Abdominal pain Qualifiers: Abdominal location: epigastric Qualified Code(s): R10.13 - Epigastric pain Vomiting Qualifiers: Vomiting type: unspecified Vomiting Intractability: non-intractable Nausea presence: with nausea Qualified Code(s): R11.2 - Nausea with vomiting, unspecified
--- NOTE | 2019-09-05 22:11 | CT Scan Report ---
CT OF THE ABDOMEN AND PELVIS WITH CONTRAST CLINICAL HISTORY: Epigastric pain. Hematemesis. COMPARISON STUDY: CT of the abdomen and pelvis December 07, 2018. TECHNIQUE: Following IV administration of 94 mL of Optiray-320, axial images of the abdomen and pelvi s were obtained from the lung bases to the proximal femurs. Images were reviewed in the axial, sagitt al, and coronal planes. IV contrast was administered without complication. Automated exposure contro l was utilized for the study. A dose lowering technique was utilized adhering to the principles of A KACY. CT DOSE: 408.66 mGy.cm FINDINGS: Imaged portions of the lower chest demonstrate mild emphysema. No pneumatosis, free air or portal venous gas is present. The liver is cirrhotic. Sensitivity for detection of hypervascular lesi ons is diminished on this portal venous phase exam but no hepatic lesions are identified. There is mi ld splenomegaly. A small amount of ascites within the abdomen and pelvis is noted. Extensive collater al formation is again shown, including esophageal varices. The adrenal glands, kidneys and pancreas a re unremarkable double. There is no biliary or pancreatic ductal dilatation. This exam is mildly comp romised by artifact. The main, left and right portal veins are patent. The superior mesenteric vein i s patent. Moderate plaque of the abdominal aorta is noted. There is no hydronephrosis. The mid small bowel is moderately dilated and fluid-filled. There is a transition point within the central abdomen on image 257 of 416. The distal small bowel is decompressed. Wall thickening of ileal loops is noted. This has been shown on prior exams. No abscess is present. No lymphadenopathy is noted. Interval dev elopment of compression fractures of L2, L3 and L4 and possibly L5 since CT of November 07, 2018 is noted . The L2 fracture extends through the posterior elements. This is probably subacute to chronic. Ankyl osis of the sacroiliac joints is noted with anterior osteophytosis within the spine. IMPRESSION: 1. Moderately dilated fluid-filled mid small bowel with discrete transition point within the central abdomen with decompressed distal small bowel. This represents a moderate grade small bowel obstructio n. 2. Cirrhosis with manifestations of portal hypertension including extensive varices formation, mild s plenomegaly and a small amount of ascites. 3. Interval development of L2, L3 and L4 compression fractures since CT of December 07, 2018. L2 fracture extends through the posterior elements and therefore may be unstable. This fracture appears subacute to chronic. 4. Wall thickening of several ileal loops which has been shown on prior exams and may be related to i nflammatory bowel disease such as Crohn's disease. 5. Osseous findings suggestive of ankylosing spondylitis. ACT 112: Negative or not required by law. Electronically signed by: Raul Burkett M.D. 09/05/2019 10:09 PM
[2019-09-05] MEDS ORDERED: cefOXitin 1,000 MG/50 ML BAG IV STA (23:07)
--- NOTE | 2019-09-05 23:13 | History & Physical Report ---
Date of Service September 05, 2019 Assessment & Plan (1) SBO (small bowel obstruction): hx hernia repair surgery (2016) as per records UGIB secondary to emesis episodes ddx : Caridad-Saravia tear, esophagitis Esophageal varices/hypertensive gastropathy on recent EGD 2018 hypertension, stable alcoholic cirrhosis, patient with some leg swelling, no overt decompensation history of Crohn's disease chronic anemia, hemoglobin better than baseline history ankylosing spondylitis Subacute lumbar vertebral fracture (possibly unstable) on CT, ? No unusual back pain complaints, ? history of fall from a few months ago as per patient past alcohol abuse ongoing tobacco abuse Hypokalemia secondary to emesis Hyperglycemia rule out DM Medical telemetry Bowel rest, IVF Bowel regimen NGT placement currently precluded by U GIB, hx history of esophageal varices Surgery consult RE bowel obstruction IV PPI GI consult RE U GIB (Ceftriaxone in place of home quinolone for SBP prophylaxis for cirrhotic patient given active U GIB) Orthopedics consult RE lumbar fracture on CT check hemoglobin A1c Replace potassium DVT prophylaxis with SCDs Re: UGIB Full code Text document was generated using [employer] voice recognition software. It may contain grammatical or spelling errors. Kindly contact undersigned for clarification of any documentation item in question. History of Present Illness Chief Complaint: Abdominal pain, hematemesis Primary Care Provider: Howard Black, History obtained from patient and records. Medical history significant for hypertension, alcoholic cirrhosis, history of Crohn's disease, chronic anemia (baseline hemoglobin 8-9), history ankylosing spondylitis, past alcohol abuse, ongoing tobacco abuse. Recent confinement [facility] November 2018 for abdominal fluid collection status post IR guided drainage. This morning patient woke up with epigastric discomfort with subsequent nausea and emesis. Constipation symptoms, small brown bowel movement today. Bilious emesis later followed by hematemesis. No chest pain, S OB, fever, chills. Patient seen at the ER for evaluation. Patient given Cefoxitin at the ER. Medical History as above 2019 EGD showed esophageal varices, portal hypertensive gastropathy 2019 colonoscopy showed sigmoid polyp, tortuous colon Surgical History : Umbilical hernia repair, tonsillectomy/adenoidectomy Family History : Ankylosing spondylitis, lung cancer, diabetes, heart disease Personal/Social history : Half pack daily, no recent EtOH intake, disabled Allergies Allergy/AdvReac Type Severity Reaction Status Date / Time adalimumab Allergy Severe RASH Verified 09/05/19 21:49 etanercept Allergy Severe RASH Verified 09/05/19 21:49 shellfish derived Allergy Severe Anaphylaxis Verified 09/05/19 21:49 tromethamine Allergy Severe RASH Verified 09/05/19 21:49 Penicillins Allergy Intermediate PASSED OUT Verified 09/05/19 21:49 bee venom protein (honey bee) Allergy Unknown PASSED OUT Verified 09/05/19 21:49 benzyl alcohol Allergy Unknown RASH Verified 09/05/19 21:49 mouse protein Allergy Unknown FACE AND Verified 09/05/19 21:49 MOUTH SWELL secukinumab Allergy Unknown FACE AND Verified 09/05/19 21:49 MOUTH SWELL sorbitan esters Allergy Unknown FACE AND Verified 09/05/19 21:49 MOUTH SWELL varenicline AdvReac Unknown VEINS IN Verified 09/05/19 21:49 FEET BLEW Home Medications Home Medications Medication Instructions Recorded Confirmed Type atenolol 25 mg PO QAM 03/16/18 09/05/19 History oxycodone 7.5 mg PO QID PRN 03/16/18 09/05/19 History pantoprazole 40 mg PO QAM 03/16/18 09/05/19 History bisacodyl [Dulcolax (bisacodyl)] 5 mg PO DAILY PRN 08/30/18 09/05/19 History polyethylene glycol 3350 [Miralax] 17 g PO DAILY PRN 08/30/18 09/05/19 History Florastor 250 mg PO DAILY 12/07/18 09/05/19 History folic acid 1 mg PO QAM 04/12/19 09/05/19 History ciprofloxacin HCl 500 mg PO QAM 09/05/19 09/05/19 History furosemide 20 mg PO QAM 09/05/19 09/05/19 History thiamine HCl (vitamin B1) [Vitamin 100 mg PO QAM 09/05/19 09/05/19 History B-1] Past Med/Surg History Medical History Ankylosing spondylitis Cirrhosis of liver Crohns disease Encounter for pre-operative examination Esophageal varices with banding GERD (gastroesophageal reflux disease) Hypertension Mitral valve prolapse ?pt states some providers say he does, some say he doesnt--no video specialist Peritonitis with abscess of intestine pt reports abscess drained in October [facility], treated and remains on abx Rheumatoid arthritis Surgical History History of abdominal paracentesis History of colonoscopy most recent 08/2018 [facility] History of esophagogastroduodenoscopy (EGD) History of right inguinal hernia repair had 1 umbilical hernia repair at same time History of tonsillectomy and adenoidectomy History of tooth extraction wisdom teeth History of umbilical hernia repair ruptured and repaired 07/2017 Family History Mother Family history of reaction to anesthesia "slow to wake up a couple different times" Father Lung cancer Social History Preferred Language: Filipino Communication Ability: Effective Counter Tender Required: No Beliefs That Will Affect Care: None Current Living Situation: Alone Current Living Situation Comment: lives in a trailer Other Information That Helps Us Care for You: No Feels Safe at Home: Yes Safety Concerns: Feels Safe At This Time Smoking Status: Heavy tobacco smoker Tobacco Type: cigarettes ; Cigarettes Per Day: 10 per day ; Do You Dip or Chew Tobacco: No ; Second Hand Exposure: No ; Tobacco Cessation Education Requested by Patient: No Hx Alcohol Use: No Hx Substance Use: No Review of Systems Review of Systems: As per HPI, all 10 systems reviewed, usual smoker's cough symptoms, low back pain from possible fall a few months ago without unusual lower extremity numbness/weakness/incontinence symptoms, all other ROS negative Physical Exam Physical Exam: GENERAL: Comfortable, slightly anxious, no respiratory distress SKIN: Pallor, warm HEENT: Pale palpebral conjunctivae, no ptosis, dry buccal mucosa NECK : Supple, no tenderness CHEST : Decreased breath sounds , no tenderness HEART : RRR, no obvious murmurs ABDOMEN: Some distention, minimal epigastric tenderness EXTREMITIES : Bilateral LE swelling, no LE tenderness, no other conspicuous deformities noted NEUROLOGIC : Coherent, no facial asymmetry, no other gross focality Results & Data Results & Data ([facility]) Vital Signs (Past 12 Hours) Vital Signs Temp Pulse Pulse Resp BP BP Pulse Ox 09/05/19 22:56 97 09/05/19 22:51 70 18 113/59 L 88 L 09/05/19 21:42 74 16 129/71 97 09/05/19 20:54 99 09/05/19 20:49 36.9 C 93 H 18 137/74 97 Laboratory Results Laboratory Results WBC 8.78 K/uL (4.8-10.8) 09/05/19 20:55 RBC 4.24 M/uL (4.7-6.1) L 09/05/19 20:55 Hgb 10.6 g/dL (14.0-18.0) L 09/05/19 20:55 POC Hgb 11.2 g/dl (14.0-18.0) L 09/05/19 21:01 Hct 32.6 % (42-52) L 09/05/19 20:55 POC Hct 33 % (42-52) L 09/05/19 21:01 MCV 76.9 fL (80-100) L 09/05/19 20:55 MCH 25.0 pg (25-34) 09/05/19 20:55 MCHC 32.5 g/dL (32-36) 09/05/19 20:55 RDW Std Deviation 54.8 fL (36.4-46.3) H 09/05/19 20:55 RDW Coeff of Ronnie 19.4 % (11.5-14.5) H 09/05/19 20:55 Plt Count 171 K/uL (130-400) 09/05/19 20:55 MPV 9.8 fL (7.4-10.4) 09/05/19 20:55 Immature Gran % (Auto) 0.1 % 09/05/19 20:55 Neut % (Auto) 79.2 % 09/05/19 20:55 Lymph % (Auto) 10.1 % 09/05/19 20:55 Jay % (Auto) 9.0 % 09/05/19 20:55 Eos % (Auto) 1.3 % 09/05/19 20:55 Baso % (Auto) 0.3 % 09/05/19 20:55 Immature Gran # (Auto) 0.01 K/uL (0.00-0.02) 09/05/19 20:55 Neut # (Auto) 6.95 K/uL (1.4-6.5) H 09/05/19 20:55 Lymph # (Auto) 0.89 K/uL (1.2-3.4) L 09/05/19 20:55 Jay # (Auto) 0.79 K/uL (0.11-0.59) H 09/05/19 20:55 Eos # (Auto) 0.11 K/uL (0-0.5) 09/05/19 20:55 Baso # (Auto) 0.03 K/uL (0-0.2) 09/05/19 20:55 POC Sodium 137 mmol/L (135-144) 09/05/19 21:01 Sodium 137 mmol/L (136-145) 09/05/19 20:55 POC Potassium 3.4 mmol/L (3.3-5.0) 09/05/19 21:01 Potassium 3.3 mmol/L (3.5-5.1) L 09/05/19 20:55 POC Chloride 99 mmol/L (101-112) L 09/05/19 21:01 Chloride 103 mmol/L (98-107) 09/05/19 20:55 Carbon Dioxide 27 mmol/L (21-32) 09/05/19 20:55 POC Total CO2 24 mEq/l (24-31) 09/05/19 21:01 Anion Gap 7.0 (3-11) 09/05/19 20:55 POC Anion Gap 18.0 mmol/L (16-25) 09/05/19 21:01 POC BUN 10 mg/dl (7-18) 09/05/19 21:01 BUN 11 mg/dl (7-18) 09/05/19 20:55 Creatinine 0.76 mg/dl (0.6-1.4) 09/05/19 20:55 POC Creatinine 0.5 mg/dl (0.6-1.3) L 09/05/19 21:01 Est Cr Clr Drug Dosing 86.3 ml/min 09/05/19 20:55 Est GFR ( Amer) 117.4 09/05/19 20:55 Est GFR (Non-Af Amer) 101.3 09/05/19 20:55 BUN/Creatinine Ratio 13.9 (10-20) 09/05/19 20:55 Glucose 115 mg/dl (70-99) H 09/05/19 20:55 POC Glucose (other) 114 mg/dl (70-99) H 09/05/19 21:01 Calcium 8.5 mg/dl (8.5-10.1) 09/05/19 20:55 POC Ioniz Calcium Tavares 1.12 mmol/l (1.12-1.32) 09/05/19 21:01 Magnesium 1.5 mg/dl (1.8-2.4) L 09/05/19 20:55 Total Bilirubin 1.4 mg/dl (0.2-1) H 09/05/19 20:55 AST 21 U/L (15-37) 09/05/19 20:55 ALT 21 U/L (12-78) 09/05/19 20:55 Alkaline Phosphatase 102 U/L (45-117) 09/05/19 20:55 Troponin I < 0.015 ng/ml (0-0.045) 09/05/19 20:55 Total Protein 6.9 gm/dl (6.4-8.2) 09/05/19 20:55 Albumin 2.8 gm/dl (3.4-5.0) L 09/05/19 20:55 Globulin 4.1 gm/dl (2.5-4.0) H 09/05/19 20:55 Albumin/Globulin Ratio 0.7 (0.9-2) L 09/05/19 20:55 Lipase 134 U/L (73-393) 09/05/19 20:55 Blood Type O Positive 09/05/19 20:57 Antibody Screen NEGATIVE 09/05/19 20:57 Diagnostic Findings Chest x-ray: No acute cardiopulmonary findings. CT abdomen pelvis: 1. Moderately dilated fluid-filled mid small bowel with discrete transition point within the central abdomen with decompressed distal small bowel. This represents a moderate grade small bowel obstruction. 2. Cirrhosis with manifestations of portal hypertension including extensive varices formation, mild splenomegaly and a small amount of ascites. 3. Interval development of L2, L3 and L4 compression fractures since CT of December 07, 2018. L2 fracture extends through the posterior elements and therefore may be unstable. This fracture appears subacute to chronic. 4. Wall thickening of several ileal loops which has been shown on prior exams and may be related to inflammatory bowel disease such as Crohn's disease. 5. Osseous findings suggestive of ankylosing spondylitis.
[2019-09-06] MEDS ORDERED: bisacodyL 10 MG SUPP PR STA (00:39)
[2019-09-06] MEDS ORDERED: LORazepam 0.25 MG/0.5 ML VIAL IV PRN (00:39)
[2019-09-06] MEDS ORDERED: XOPENEX/ATROVENT 1.25mg/0.5MG NEB COMBO NEB PRN (00:39)
[2019-09-06] MEDS ORDERED: POLYETHYLENE (MIRALAX) 17 GM PACK PO PRN (00:39)
[2019-09-06] MEDS ORDERED: IPRATROPIUM BROMIDE NEB SOLN 0.02% 2.5 ML VIAL INH PRN (00:39)
[2019-09-06] MEDS ORDERED: ALBUT/IPRATROP 3MG/0.5MG NEB 3 ML VIAL NEB STA (00:39)
[2019-09-06] MEDS ORDERED: LEVALBUTEROL 1.25MG/0.5ML NEB INH PRN (00:39)
[2019-09-06] MEDS ORDERED: PROMETHAZINE HCL 12.5 MG in SODIUM CHLORIDE 0.9% 50 ML IV PRN (00:39)
[2019-09-06] MEDS ORDERED: ACETAMINOPHEN 325 MG TAB PO PRN (00:39)
[2019-09-06] MEDS ORDERED: LACTULOSE SYRUP 30 GM/45 ML UDP PO STA (01:02)
[2019-09-06 01:03] LABS: Hematocrit (blood only) 31.3 % (42-52); Hemoglobin 10.2 g/dL (14.0-18.0)
[2019-09-06] MEDS: MAGNESIUM SULFATE / D5W 1 GM/100 ML BAG IV SCH ×2 (02:10→03:55)
[2019-09-06] MEDS: POTASSIUM CHLORIDE / WTR 10 MEQ/100 ML PLCT IV SCH ×2 (02:29→04:49)
[2019-09-06] MEDS: ALBUMIN 25% 50 ML IV SCH ×3 (03:04→12:28)
[2019-09-06 05:33] LABS: Estimated Average Glucose 108 mg/dl; Hemoglobin A1C 5.4 % (4.5-5.6)
[2019-09-06 07:22] LABS: Mean Corpuscular Hgb Conc 32.1 g/dL (32-36)
[2019-09-06] MEDS: THIAMINE HCL 100 MG TAB PO SCH ×2 (07:29→07:59)
[2019-09-06] MEDS: FOLIC ACID 1 MG TAB PO SCH ×2 (07:29→07:58)
[2019-09-06] MEDS: SACCHAROMYCES BOULARDII 250 MG CAP PO SCH ×2 (07:29→07:58)
[2019-09-06] MEDS: ATENOLOL 25 MG TABLET PO SCH ×2 (07:29→07:58)
[2019-09-06] MEDS: DOCUSATE SODIUM/SENNA 50/8.6MG TAB PO SCH ×3 (07:30→21:11)
[2019-09-06] MEDS: NICOTINE 14 MG/24 HR PATCH TD SCH (07:30)
[2019-09-06 07:35] LABS: Hematocrit (blood only) 30.2 % (42-52); Hemoglobin 9.7 g/dL (14.0-18.0); Mean Corpuscular Hemoglobin 24.9 pg (25-34); Mean Corpuscular Volume 77.6 fL (80-100); RDW Coefficient of Variation 19.5 % (11.5-14.5); RDW Standard Deviation 55.8 fL (36.4-46.3); Red Blood Count 3.89 M/uL (4.7-6.1); White Blood Count 6.16 K/uL (4.8-10.8)
[2019-09-06 07:47] LABS: Anisocytosis Present; Basophils # (auto) 0.03 K/uL (0-0.2); Basophils % (auto) 0.5 %; Eosinophils # (auto) 0.23 K/uL (0-0.5); Eosinophils % (auto) 3.7 %; Immature Granulocytes # (auto) 0.01 K/uL (0.00-0.02); Immature Granulocytes % (auto) 0.2 %; Lymphocytes # (auto) 0.67 K/uL (1.2-3.4); Lymphocytes % (auto) 10.9 %; Microcytosis Present; Monocytes % (auto) 11.4 %; Neutrophils # (auto) 4.52 K/uL (1.4-6.5); Neutrophils % (auto) 73.3 %; Poikilocytosis Present
[2019-09-06 07:52] LABS: BUN Creatinine Ratio 14.7 (10-20); Calcium 8.1 mg/dl (8.5-10.1); Creatinine Clr Calc Pharmacy 117.1 ml/min; Est GFR (African American) 133.1; Est GFR (Non-African American) 114.8; Magnesium 2.2 mg/dl (1.8-2.4); Potassium 3.9 mmol/L (3.5-5.1)
--- NOTE | 2019-09-06 08:06 | Gastrointestinal Consultation ---
Date of Consultation September 06, 2019 Assessment & Plan (1) SBO (small bowel obstruction): 59 year old male with history of IBD not on therapy, ETOH cirrhosis reported abstinent from ETOH presenting w/ epigastric pain, constipation, emesis and an isolated episode of hematemsis, CTAP concerning for SBO. He is awake, alert and oriented, afebrile. Slight drop in HGB to 9.7. No BUN elevation this AM. NPO, Consult general surgery Iv PPI BID Iv ABX already ordered SBP prophylaxis Will discuss EGD w/ attending, DDX MWT vs portal HTN gastropathy vs less likely variceal bleeding Thank you for allowing us to participate in the care of this patient. Please call with any acute changes, questions or concerns. Please see addendum below with additional recommendation from my supervising physician. (2) Vomiting: (3) Hematemesis: Supervising Physician Co-Signing Physician Notes I saw and evaluated the patient. The patient has a history of inflammatory bowel disease in addition to cirrhosis of the liver. He presented with nausea and vomiting and a single episode of coffee-ground emesis. His imaging does show evidence of a small bowel obstruction. This morning the patient notes that he feels much improved as compared to admission. Physical exam No peritoneal signs, no fluid wave appreciated Impression: Patient with multiple complicated issues presenting with evidence of small bowel obstruction on CT scan. This appears to have resulted in recurrent emesis and perhaps a Caridad-Saravia tear. Endoscopic evaluation has been requested by the internal medicine service for further evaluation. If the EGD is negative we would then recommend conservative measures with IV hydration and perhaps NG tube placement needed. We would also recommend surgical consultation expert opinion with regard to long-term care of his small bowel obstruction. It is possible that his small bowel obstruction is related to his underlying inflammatory bowel disease and if no improvement labs he would need to be referred to a tertiary center with subspecialty expertise in laboratory bowel disease management History of Present Illness Reason for Consultation: hematemesis Requesting Physician: Ashlee Attending Physician: Mateo Rosado MD History of Present Illness 58 year old male with history of ETOH cirrhosis (he reported sobriety to me for 2 years), Crohn's disease, umbilical hernia incarceration and also peritonitis s/p reduction who presented through the ED with constipation, abd pain, nausea and hematemesis x 1 episode. Pt was seen and evaluated, chart reviewed. No family/friends at bedside. Notes that he was in his typical state of health until yesterday. Developed epigastric pain which he explains more or less as a reflux type pain. Did radiate to his back. Associated w/ vomiting. Suggests he threw up numerous times. The first few episodes were bilious/food. The last episode of emesis was bloody. BRB. No clots. Some coffee ground appearance as well. Since onset of symptoms, no BM. Specifically denies dark stools, BRBPR. Today, he notes his symptoms are improved. No abd pain. No nausea, vomiting. No BM yet this AM. No lightheadedness, dizziness, CP, SOB. Remote history of L abd abscess s/p IR drainage and perc tube placement in [place] in the Fall. CTAP: Moderately dilated fluid-filled mid small bowel with discrete transition point within the central abdomen with decompressed distal small bowel. This represents a moderate grade small bowel obstruction. Cirrhosis with manifestations of portal hypertension including extensive varices formation, mild splenomegaly and a small amount of ascites. Interval development of L2, L3 and L4 compression fractures since CT of December 07, 2018. L2 fracture extends through the posterior elements and therefore may be unstable. This fracture appears subacute to chronic. Wall thickening of several ileal loops which has been shown on prior exams and may be related to inflammatory bowel disease such as Crohn's disease. EGD 2019: Grade I esophageal varices.Portal hypertensive gastropathy. Normal examined duodenum. No specimens collected. EGD 2018: grade 2 eso varices, portal htn gastropathy Colonoscopy 2018: stricture at 60 cm proximal to the anus. Biopsied.Normal mucosa in the entire examined colon. Biopsied.-Internal hemorrhoids Allergies Allergy/AdvReac Type Severity Reaction Status Date / Time adalimumab Allergy Severe RASH Verified 09/06/19 10:24 etanercept Allergy Severe RASH Verified 09/06/19 10:24 shellfish derived Allergy Severe Anaphylaxis Verified 09/06/19 10:24 tromethamine Allergy Severe RASH Verified 09/06/19 10:24 Penicillins Allergy Intermediate PASSED OUT Verified 09/06/19 10:24 bee venom protein (honey bee) Allergy Unknown PASSED OUT Verified 09/06/19 10:24 benzyl alcohol Allergy Unknown RASH Verified 09/06/19 10:24 mouse protein Allergy Unknown FACE AND Verified 09/06/19 10:24 MOUTH SWELL secukinumab Allergy Unknown FACE AND Verified 09/06/19 10:24 MOUTH SWELL sorbitan esters Allergy Unknown FACE AND Verified 09/06/19 10:24 MOUTH SWELL varenicline AdvReac Unknown VEINS IN Verified 09/06/19 10:24 FEET BLEW Home Medications Home Medications Medication Instructions Recorded Confirmed Type atenolol 25 mg PO QAM 03/16/18 09/05/19 History oxycodone 7.5 mg PO QID PRN 03/16/18 09/05/19 History pantoprazole 40 mg PO QAM 03/16/18 09/05/19 History bisacodyl [Dulcolax (bisacodyl)] 5 mg PO DAILY PRN 08/30/18 09/05/19 History polyethylene glycol 3350 [Miralax] 17 g PO DAILY PRN 08/30/18 09/05/19 History Florastor 250 mg PO DAILY 12/07/18 09/05/19 History folic acid 1 mg PO QAM 04/12/19 09/05/19 History ciprofloxacin HCl 500 mg PO QAM 09/05/19 09/05/19 History furosemide 20 mg PO QAM 09/05/19 09/05/19 History thiamine HCl (vitamin B1) [Vitamin 100 mg PO QAM 09/05/19 09/05/19 History B-1] Patient History Medical History Ankylosing spondylitis Cirrhosis of liver Crohns disease Encounter for pre-operative examination Esophageal varices with banding GERD (gastroesophageal reflux disease) Hypertension Mitral valve prolapse ?pt states some providers say he does, some say he doesnt--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 Peritonitis with abscess of intestine pt reports abscess drained in October [facility], treated and remains on abx Rheumatoid arthritis Surgical History History of abdominal paracentesis History of colonoscopy most recent 08/2018 [facility] History of esophagogastroduodenoscopy (EGD) History of right inguinal hernia repair had 1 umbilical hernia repair at same time History of tonsillectomy and adenoidectomy History of tooth extraction wisdom teeth History of umbilical hernia repair ruptured and repaired 07/2017 Family History Mother Family history of reaction to anesthesia "slow to wake up a couple different times" Father Lung cancer Social History Preferred Language: Tamazight Communication Ability: Effective Tear Down Man Required: No Beliefs That Will Affect Care: None Current Living Situation: Alone Current Living Situation Comment: lives in a trailer Other Information That Helps Us Care for You: No Feels Safe at Home: Yes Safety Concerns: Feels Safe At This Time Smoking Status: Heavy tobacco smoker Tobacco Type: cigarettes ; Cigarettes Per Day: 10 per day ; Do You Dip or Chew Tobacco: No ; Second Hand Exposure: No ; Tobacco Cessation Education Requested by Patient: No Hx Alcohol Use: No Hx Substance Use: No Review of Systems Constitutional: no fever, no chills and no fatigue Respiratory: no cough and no dyspnea Cardiovascular: no chest pain Gastrointestinal: + nausea, + coffee ground emesis (yesterday) and + hematemesis (yesterday, 1 epsiode coffee ground and BRB in appearaince); no blood in stools and no melena Physical Exam Constitutional: + ill appearing (chronically ill) and + thin Neck: trachea midline Respiratory: normal respiratory effort Gastrointestinal (Abdomen): Inspection/Auscultation: + abdomen distended (mild/moderate) Percussion/Palpation: abdomen soft Skin: no rashes, warm and dry Results & Data ([facility]) Vital Signs (Past 12 Hours) Vital Signs Temp Pulse Pulse Resp BP BP BP 09/06/19 07:12 36.4 C L 64 18 120/74 09/06/19 04:09 37 C 66 18 129/69 09/06/19 01:30 77 18 09/06/19 00:39 09/06/19 00:30 78 09/06/19 00:00 37.1 C 87 23 130/69 09/05/19 23:31 83 18 121/68 09/05/19 22:56 09/05/19 22:51 70 18 113/59 L 09/05/19 21:42 74 16 129/71 09/05/19 20:54 09/05/19 20:49 36.9 C 93 H 18 137/74 Pulse Ox Pulse Ox 09/06/19 07:12 97 09/06/19 04:09 92 09/06/19 01:30 99 09/06/19 00:39 98 09/06/19 00:30 09/06/19 00:00 98 09/05/19 23:31 97 09/05/19 22:56 97 09/05/19 22:51 88 L 09/05/19 21:42 97 09/05/19 20:54 99 09/05/19 20:49 97 (1) Vomiting Nausea presence: with nausea Vomiting Intractability: non-intractable Vomiting type: unspecified Qualified Code(s): R11.2 - Nausea with vomiting, unspecified
--- NOTE | 2019-09-06 08:43 | XRay Report ---
XR lumbar spine 2-3V CLINICAL HISTORY: back pain COMPARISON STUDY: 05/31/2015, CT scan dated 09/05/2019 FINDINGS: There is ankylosis of the dorsal spine. There is stable widening of the L5-S1 disc space. T he bones are osteopenic. There are progressive superior endplate L2 and L3 compression fractures. The re is a stable superior endplate L1 compression fracture. There is a new mild superior endplate L4 co mpression fracture. There are dilated small bowel loops with air-fluid levels. The findings are consi stent with a small bowel obstruction. IMPRESSION: 1. Small bowel obstructive pattern 2. Ankylosis of the thoracic spine 3. Osteopenia and multiple superior endplate lumbar vertebral body compression deformities, as were d escribed on the recent CT scan. ACT 112: Negative or not required by law. Electronically signed by: Jermaine Wiseman M.D. 09/06/2019 8:41 AM
[2019-09-06] MEDS: PANTOprazole 40 MG in SYRINGE 0 ML IV SCH ×2 (08:53→21:11)
[2019-09-06] MEDS ORDERED: PANTOprazole 40 MG TAB PO SCH (09:00)
[2019-09-06 09:12] LABS: Platelet Count 114 K/uL (130-400)
--- NOTE | 2019-09-06 10:15 | Anesthesiology Consultation ---
Date of Service September 06, 2019 Assessment & Plan (1) Encounter for pre-operative examination: Chart Review Chart Review: Acceptable Risk for Surgery and Patient NOT seen in Pre Admission Testing Consults Requested none History Surgery Operation Date: 09/06/19 08:30 Proposed Procedures p Esophagogastroduodenoscopy Dr Mervin Jeffries Height/Weight Height: 5 ft 3 in Weight: 62 kg Allergies Allergy/AdvReac Type Severity Reaction Status Date / Time adalimumab Allergy Severe RASH Verified 09/06/19 10:24 etanercept Allergy Severe RASH Verified 09/06/19 10:24 shellfish derived Allergy Severe Anaphylaxis Verified 09/06/19 10:24 tromethamine Allergy Severe RASH Verified 09/06/19 10:24 Penicillins Allergy Intermediate PASSED OUT Verified 09/06/19 10:24 bee venom protein (honey bee) Allergy Unknown PASSED OUT Verified 09/06/19 10:24 benzyl alcohol Allergy Unknown RASH Verified 09/06/19 10:24 mouse protein Allergy Unknown FACE AND Verified 09/06/19 10:24 MOUTH SWELL secukinumab Allergy Unknown FACE AND Verified 09/06/19 10:24 MOUTH SWELL sorbitan esters Allergy Unknown FACE AND Verified 09/06/19 10:24 MOUTH SWELL varenicline AdvReac Unknown VEINS IN Verified 09/06/19 10:24 FEET BLEW Medications Home Medications Medication Instructions Recorded Confirmed Last Taken atenolol 25 mg PO QAM 03/16/18 09/05/19 09/05/19 oxycodone 7.5 mg PO QID PRN 03/16/18 09/05/19 09/05/19 pantoprazole 40 mg PO QAM 03/16/18 09/05/19 09/05/19 bisacodyl [Dulcolax (bisacodyl)] 5 mg PO DAILY PRN 08/30/18 09/05/19 09/05/19 polyethylene glycol 3350 [Miralax] 17 g PO DAILY PRN 08/30/18 09/05/19 09/05/18 Florastor 250 mg PO DAILY 12/07/18 09/05/19 Unknown folic acid 1 mg PO QAM 04/12/19 09/05/19 09/05/19 ciprofloxacin HCl 500 mg PO QAM 09/05/19 09/05/19 09/05/19 furosemide 20 mg PO QAM 04/02/1509/05/19 09/05/19 thiamine HCl (vitamin B1) [Vitamin 100 mg PO QAM 09/05/19 09/05/19 09/05/19 B-1] Active Medications Generic Name Dose Route Start Last Admin Trade Name Swathi PRN Reason Stop Dose Admin Atenolol 25 mg 09/06/19 09:00 09/06/19 07:58 Tenormin PO 10/06/19 08:59 Not Given QAM KAILA Folic Acid 1 mg 09/06/19 09:00 09/06/19 07:58 Folvite PO 10/06/19 08:59 Not Given QAM KAILA Albumin Human 50 mls @ 50 mls/hr 09/06/19 01:00 09/06/19 07:59 Albumin 25% IV 09/09/19 00:59 Infused Q6H KAILA Infusion Pantoprazole Sodium 40 mg/ 10 mls @ 5 mls/min 09/06/19 09:00 09/06/19 08:53 Syringe IV 10/06/19 08:59 5 mls/min BID KAILA Administration Miscellaneous 1 ea 09/06/19 08:59 09/06/19 07:30 Remove Nicoderm Patch N/A 10/06/19 08:58 Not Given [id number] KAILA Nicotine 14 mg 09/06/19 09:00 09/06/19 07:30 Nicoderm Cq TD 10/06/19 08:59 14 mg QAM KAILA Administration Saccharomyces Boulardii 250 mg 09/06/19 09:00 09/06/19 07:58 Florastor PO 10/06/19 08:59 Not Given DAILY KAILA Senna/Docusate Sodium 1 tab 09/06/19 09:00 09/06/19 07:58 Senokot S PO 10/06/19 08:59 Not Given BID [facility] Thiamine HCl 100 mg 09/06/19 09:00 09/06/19 07:59 Vitamin B-1 PO 10/06/19 08:59 Not Given QAM KAILA Past Medical History Medical History Ankylosing spondylitis Cirrhosis of liver Crohns disease Encounter for pre-operative examination Esophageal varices with banding GERD (gastroesophageal reflux disease) Hypertension Mitral valve prolapse ?pt states some providers say he does, some say he doesnt--no winterizer Peritonitis with abscess of intestine pt reports abscess drained in October [facility], treated and remains on abx Rheumatoid arthritis small bowel obstruction. Exercise / Class Metabolic Activity III < 4 Walking/Shop/Light housework Past Family History Family History Mother Family history of reaction to anesthesia "slow to wake up a couple different times" Father Lung cancer Past Surgical History Surgical History History of abdominal paracentesis History of colonoscopy most recent 08/2018 [facility] History of esophagogastroduodenoscopy (EGD) History of right inguinal hernia repair had 1 umbilical hernia repair at same time History of tonsillectomy and adenoidectomy History of tooth extraction wisdom teeth History of umbilical hernia repair ruptured and repaired 07/2017 Past Anesthesia History No Hx of Anesthesia Complications and No Family Hx of Anesthesia Complications History of PONV No Hx of PONV and No Hx of Motion Sickness Social History Smoking Status: Heavy tobacco smoker tobacco type: cigarettes Smoking cigarettes per day: 10 per day Do You Dip or Chew Tobacco: No Hx Alcohol Use: No alcohol intake frequency: holidays/special occasions only Hx Substance Use: No substance use type: painkillers and prescription drug Last Used Substance: Hours (ago) Physical Exam Vital Signs Last Vital Signs Temp 36.4 C L 09/06/19 07:12 Pulse 64 09/06/19 07:12 Resp 18 09/06/19 07:12 BP 120/74 09/06/19 07:12 Pulse Ox 97 09/06/19 07:12 Testing Laboratory Results 09/06/19 06:57 09/06/19 06:57 Hemoglobin A1c 5.4 % (4.5-5.6) 09/05/19 20:55 Blood Type O Positive 09/05/19 20:57 Antibody Screen NEGATIVE 09/05/19 20:57 Electrocardiogram Date: 09/05/19 Findings: + NSR @ (79) Normal sinus rhythm Left anterior fascicular block Septal infarct (cited on or before 05-SEP-2019) Abnormal ECG When compared with ECG of 14-NOV-2018 17:24, T wave inversion now evident in Anterior leads Nonspecific T wave abnormality, improved in Lateral leads
--- NOTE | 2019-09-06 10:34 | Surgery Consultation ---
Date of Consultation September 06, 2019 Assessment & Plan (1) SBO (small bowel obstruction): Patient has evidence of small bowel obstruction that may be moderate by CT scan. He has a history of Crohn's disease. I appreciate the GI consult. He had a perforation with abscess last summer although that does not appear to be the case at this time. At present he is feeling better although he has not passed a bowel movement or flatus. This patient would be a significant risk for surgical intervention especially considering the severity of his cirrhosis as well as the intra-abdominal varices. He has a history of mild coagulopathy with an INR of 1.6 back in November. May wish to repeat that. Would agree to continue with conservative measures for now. History of Present Illness Reason for Consultation: Abdominal pain with nausea and vomiting Requesting Physician: Mateo Rosado MD Attending Physician: Mateo Rosado MD History of Present Illness This is a 59-year-old male who has a significant past medical history for Crohn's disease for which he had formation of an abscess with percutaneous drainage last summer. He also has a history of cirrhosis secondary to alcohol abuse although he states he has not had alcohol in 2 years. He was feeling well until yesterday. After he awoke he developed what he described as a "opacity" feeling in the epigastrium. That progressed as the day went on. He then developed nausea with 3 episodes of vomiting. The first 2 episodes were bilious with food but the third episode was mostly blood. He had some abdominal discomfort in the right side of his abdomen. He had an umbilical hernia repair about 2 years ago but it recurred and is now larger than it was at that time. The hernia itself is not tender. He typically moves his bowels with formed stool on a regular basis but did not have a bowel movement yesterday. He has not passed gas. He denies fever. His cirrhosis is associated with intra- abdominal as well as esophageal varices. He also has a history of ascites. Today he feels much better. He has no abdominal pain unless his abdomen is palpated. He has no further nausea and has not vomited since admission to the hospital. Allergies Allergy/AdvReac Type Severity Reaction Status Date / Time adalimumab Allergy Severe RASH Verified 09/06/19 10:24 etanercept Allergy Severe RASH Verified 09/06/19 10:24 shellfish derived Allergy Severe Anaphylaxis Verified 09/06/19 10:24 tromethamine Allergy Severe RASH Verified 09/06/19 10:24 Penicillins Allergy Intermediate PASSED OUT Verified 09/06/19 10:24 bee venom protein (honey bee) Allergy Unknown PASSED OUT Verified 09/06/19 10:24 benzyl alcohol Allergy Unknown RASH Verified 09/06/19 10:24 mouse protein Allergy Unknown FACE AND Verified 09/06/19 10:24 MOUTH SWELL secukinumab Allergy Unknown FACE AND Verified 09/06/19 10:24 MOUTH SWELL sorbitan esters Allergy Unknown FACE AND Verified 09/06/19 10:24 MOUTH SWELL varenicline AdvReac Unknown VEINS IN Verified 09/06/19 10:24 FEET BLEW Home Medications Home Medications Medication Instructions Recorded Confirmed Type atenolol 25 mg PO QAM 03/16/18 09/05/19 History oxycodone 7.5 mg PO QID PRN 03/16/18 09/05/19 History pantoprazole 40 mg PO QAM 03/16/18 09/05/19 History bisacodyl [Dulcolax (bisacodyl)] 5 mg PO DAILY PRN 08/30/18 09/05/19 History polyethylene glycol 3350 [Miralax] 17 g PO DAILY PRN 08/30/18 09/05/19 History Florastor 250 mg PO DAILY 12/07/18 09/05/19 History folic acid 1 mg PO QAM 04/12/19 09/05/19 History ciprofloxacin HCl 500 mg PO QAM 09/05/19 09/05/19 History furosemide 20 mg PO QAM 09/05/19 09/05/19 History thiamine HCl (vitamin B1) [Vitamin 100 mg PO QAM 09/05/19 09/05/19 History B-1] Patient History Medical History Ankylosing spondylitis Cirrhosis of liver Crohns disease Encounter for pre-operative examination Esophageal varices with banding GERD (gastroesophageal reflux disease) Hypertension Mitral valve prolapse ?pt states some providers say he does, 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 Peritonitis with abscess of intestine pt reports abscess drained in October [facility], treated and remains on abx Rheumatoid arthritis Surgical History History of abdominal paracentesis History of colonoscopy most recent 08/2018 [facility] History of esophagogastroduodenoscopy (EGD) History of right inguinal hernia repair had 1 umbilical hernia repair at same time History of tonsillectomy and adenoidectomy History of tooth extraction wisdom teeth History of umbilical hernia repair ruptured and repaired 07/2017 Family History Mother Family history of reaction to anesthesia "slow to wake up a couple different times" Father Lung cancer Social History Preferred Language: Arabic Communication Ability: Effective Administrative Director Required: No Beliefs That Will Affect Care: None Current Living Situation: Alone Current Living Situation Comment: lives in a trailer Other Information That Helps Us Care for You: No Feels Safe at Home: Yes Safety Concerns: Feels Safe At This Time Smoking Status: Heavy tobacco smoker Tobacco Type: cigarettes ; Cigarettes Per Day: 10 per day ; Do You Dip or Chew Tobacco: No ; Second Hand Exposure: No ; Tobacco Cessation Education Requested by Patient: No Hx Alcohol Use: No Hx Substance Use: No Physical Exam Constitutional: + thin; no acute distress Appears much older than stated age Neck: trachea midline Respiratory: normal respiratory effort, lungs clear to auscultation Cardiovascular: Rate/Rhythm: regular rate and regular rhythm Gastrointestinal (Abdomen): Inspection/Auscultation: + abdomen distended (Mildly) and normal bowel sounds Percussion/Palpation: + abdomen tender (Mid abdomen and to the right of midline) and abdomen soft Lymphatic: no cervical lymphadenopathy Results & Data Vital Signs (Past 12 Hours) Vital Signs Temp Pulse Pulse Resp BP BP Pulse Ox 09/06/19 07:12 36.4 C L 64 18 120/74 97 09/06/19 04:09 37 C 66 18 129/69 92 09/06/19 01:30 77 18 99 09/06/19 00:39 09/06/19 00:30 78 09/06/19 00:00 37.1 C 87 23 130/69 98 09/05/19 23:31 83 18 121/68 97 09/05/19 22:56 97 09/05/19 22:51 70 18 113/59 L 88 L Pulse Ox 09/06/19 07:12 09/06/19 04:09 09/06/19 01:30 09/06/19 00:39 98 09/06/19 00:30 09/06/19 00:00 09/05/19 23:31 09/05/19 22:56 09/05/19 22:51 Laboratory Results 09/06/19 09/06/19 09/06/19 Range/Units 06:57 06:57 00:53 WBC 6.16 (4.8-10.8) K/uL RBC 3.89 L (4.7-6.1) M/uL Hgb 9.7 L 10.2 L (14.0-18.0) g/dL POC Hgb (14.0-18.0) g/dl Hct 30.2 L 31.3 L (42-52) % POC Hct (42-52) % MCV 77.6 L (80-100) fL MCH 24.9 L (25-34) pg MCHC 32.1 (32-36) g/dL RDW Std Deviation 55.8 H (36.4-46.3) fL RDW Coeff of Ronnie 19.5 H (11.5-14.5) % Plt Count 114 L (130-400) K/uL MPV (7.4-10.4) fL Immature Gran % (Auto) 0.2 % Neut % (Auto) 73.3 % Lymph % (Auto) 10.9 % [place] % (Auto) 11.4 % Eos % (Auto) 3.7 % Baso % (Auto) 0.5 % Immature Gran # (Auto) 0.01 (0.00-0.02) K/uL Neut # (Auto) 4.52 (1.4-6.5) K/uL Lymph # (Auto) 0.67 L (1.2-3.4) K/uL [place] # (Auto) 0.70 H (0.11-0.59) K/uL Eos # (Auto) 0.23 (0-0.5) K/uL Baso # (Auto) 0.03 (0-0.2) K/uL Poikilocytosis Present Anisocytosis Present Microcytosis Present POC Sodium (135-144) mmol/L Sodium 138 (136-145) mmol/L POC Potassium (3.3-5.0) mmol/L Potassium 3.9 D (3.5-5.1) mmol/L POC Chloride (101-112) mmol/L Chloride 106 (98-107) mmol/L Carbon Dioxide 28 (21-32) mmol/L POC Total CO2 (24-31) mEq/l Anion Gap 4.0 (3-11) POC Anion Gap (16-25) mmol/L POC BUN (7-18) mg/dl BUN 8 (7-18) mg/dl Creatinine 0.56 L (0.6-1.4) mg/dl POC Creatinine (0.6-1.3) mg/dl Est Cr Clr Drug Dosing 117.1 ml/min Est GFR ( Amer) 133.1 Est GFR (Non-Af Amer) 114.8 BUN/Creatinine Ratio 14.7 (10-20) Glucose 99 (70-99) mg/dl POC Glucose (other) (70-99) mg/dl Estimat Average Glucose mg/dl Hemoglobin A1c (4.5-5.6) % Calcium 8.1 L (8.5-10.1) mg/dl POC Ioniz Calcium Tavares (1.12-1.32) mmol/l Magnesium 2.2 (1.8-2.4) mg/dl Total Bilirubin (0.2-1) mg/dl AST (15-37) U/L ALT (12-78) U/L Alkaline Phosphatase (45-117) U/L Troponin I (0-0.045) ng/ml Total Protein (6.4-8.2) gm/dl Albumin (3.4-5.0) gm/dl Globulin (2.5-4.0) gm/dl Albumin/Globulin Ratio (0.9-2) Lipase (73-393) U/L Blood Type Antibody Screen 09/05/19 09/05/19 09/05/19 Range/Units 21:01 20:57 20:55 WBC (4.8-10.8) K/uL RBC (4.7-6.1) M/uL Hgb (14.0-18.0) g/dL POC Hgb 11.2 L (14.0-18.0) g/dl Hct (42-52) % POC Hct 33 L (42-52) % MCV (80-100) fL MCH (25-34) pg MCHC (32-36) g/dL RDW Std Deviation (36.4-46.3) fL RDW Coeff of Ronnie (11.5-14.5) % Plt Count (130-400) K/uL MPV (7.4-10.4) fL Immature Gran % (Auto) % Neut % (Auto) % Lymph % (Auto) % [place] % (Auto) % Eos % (Auto) % Baso % (Auto) % Immature Gran # (Auto) (0.00-0.02) K/uL Neut # (Auto) (1.4-6.5) K/uL Lymph # (Auto) (1.2-3.4) K/uL [place] # (Auto) (0.11-0.59) K/uL Eos # (Auto) (0-0.5) K/uL Baso # (Auto) (0-0.2) K/uL Poikilocytosis Anisocytosis Microcytosis POC Sodium 137 (135-144) mmol/L Sodium (136-145) mmol/L POC Potassium 3.4 (3.3-5.0) mmol/L Potassium (3.5-5.1) mmol/L POC Chloride 99 L (101-112) mmol/L Chloride (98-107) mmol/L Carbon Dioxide (21-32) mmol/L POC Total CO2 24 (24-31) mEq/l Anion Gap (3-11) POC Anion Gap 18.0 (16-25) mmol/L POC BUN 10 (7-18) mg/dl BUN (7-18) mg/dl Creatinine (0.6-1.4) mg/dl POC Creatinine 0.5 L (0.6-1.3) mg/dl Est Cr Clr Drug Dosing ml/min Est GFR ( Amer) Est GFR (Non-Af Amer) BUN/Creatinine Ratio (10-20) Glucose (70-99) mg/dl POC Glucose (other) 114 H (70-99) mg/dl Estimat Average Glucose mg/dl Hemoglobin A1c (4.5-5.6) % Calcium (8.5-10.1) mg/dl POC Ioniz Calcium Tavares 1.12 (1.12-1.32) mmol/l Magnesium 1.5 L (1.8-2.4) mg/dl Total Bilirubin (0.2-1) mg/dl AST (15-37) U/L ALT (12-78) U/L Alkaline Phosphatase (45-117) U/L Troponin I (0-0.045) ng/ml Total Protein (6.4-8.2) gm/dl Albumin (3.4-5.0) gm/dl Globulin (2.5-4.0) gm/dl Albumin/Globulin Ratio (0.9-2) Lipase (73-393) U/L Blood Type O Positive Antibody Screen NEGATIVE 09/05/19 09/05/19 09/05/19 Range/Units 20:55 20:55 20:55 WBC 8.78 (4.8-10.8) K/uL RBC 4.24 L (4.7-6.1) M/uL Hgb 10.6 L (14.0-18.0) g/dL POC Hgb (14.0-18.0) g/dl Hct 32.6 L (42-52) % POC Hct (42-52) % MCV 76.9 L (80-100) fL MCH 25.0 (25-34) pg MCHC 32.5 (32-36) g/dL RDW Std Deviation 54.8 H (36.4-46.3) fL RDW Coeff of Ronnie 19.4 H (11.5-14.5) % Plt Count 171 (130-400) K/uL MPV 9.8 (7.4-10.4) fL Immature Gran % (Auto) 0.1 % Neut % (Auto) 79.2 % Lymph % (Auto) 10.1 % [place] % (Auto) 9.0 % Eos % (Auto) 1.3 % Baso % (Auto) 0.3 % Immature Gran # (Auto) 0.01 (0.00-0.02) K/uL Neut # (Auto) 6.95 H (1.4-6.5) K/uL Lymph # (Auto) 0.89 L (1.2-3.4) K/uL [place] # (Auto) 0.79 H (0.11-0.59) K/uL Eos # (Auto) 0.11 (0-0.5) K/uL Baso # (Auto) 0.03 (0-0.2) K/uL Poikilocytosis Anisocytosis Microcytosis POC Sodium (135-144) mmol/L Sodium 137 (136-145) mmol/L POC Potassium (3.3-5.0) mmol/L Potassium 3.3 L (3.5-5.1) mmol/L POC Chloride (101-112) mmol/L Chloride 103 (98-107) mmol/L Carbon Dioxide 27 (21-32) mmol/L POC Total CO2 (24-31) mEq/l Anion Gap 7.0 (3-11) POC Anion Gap (16-25) mmol/L POC BUN (7-18) mg/dl BUN 11 (7-18) mg/dl Creatinine 0.76 (0.6-1.4) mg/dl POC Creatinine (0.6-1.3) mg/dl Est Cr Clr Drug Dosing 86.3 ml/min Est GFR ( Amer) 117.4 Est GFR (Non-Af Amer) 101.3 BUN/Creatinine Ratio 13.9 (10-20) Glucose 115 H (70-99) mg/dl POC Glucose (other) (70-99) mg/dl Estimat Average Glucose 108 mg/dl Hemoglobin A1c 5.4 (4.5-5.6) % Calcium 8.5 (8.5-10.1) mg/dl POC Ioniz Calcium Tavares (1.12-1.32) mmol/l Magnesium (1.8-2.4) mg/dl Total Bilirubin 1.4 H (0.2-1) mg/dl AST 21 (15-37) U/L ALT 21 (12-78) U/L Alkaline Phosphatase 102 (45-117) U/L Troponin I < 0.015 (0-0.045) ng/ml Total Protein 6.9 (6.4-8.2) gm/dl Albumin 2.8 L (3.4-5.0) gm/dl Globulin 4.1 H (2.5-4.0) gm/dl Albumin/Globulin Ratio 0.7 L (0.9-2) Lipase 134 (73-393) U/L Blood Type Antibody Screen Diagnostic Findings CT OF THE ABDOMEN AND PELVIS WITH CONTRAST CLINICAL HISTORY: Epigastric pain. Hematemesis. COMPARISON STUDY: CT of the abdomen and pelvis December 07, 2018. TECHNIQUE: Following IV administration of 94 mL of Optiray-320, axial images of the abdomen and pelvis were obtained from the lung bases to the proximal femurs. Images were reviewed in the axial, sagittal, and coronal planes. IV contrast was administered without complication. Automated exposure control was utilized for the study. A dose lowering technique was utilized adhering to the principles of ALARA. CT DOSE: 408.66 mGy.cm FINDINGS: Imaged portions of the lower chest demonstrate mild emphysema. No pn eumatosis, free air or portal venous gas is present. The liver is cirrhotic. Sensitivity for detection of hypervascular lesions is diminished on this portal venous phase exam but no hepatic lesions are identified. There is mild splenomegaly. A small amount of ascites within the abdomen and pelvis is noted. Extensive collateral formation is again shown, including esophageal varices. The adrenal glands, kidneys and pancreas are unremarkable double. There is no biliary or pancreatic ductal dilatation. This exam is mildly compromised by artifact. The main, left and right portal veins are patent. The superior mesenteric vein is patent. Moderate plaque of the abdominal aorta is noted. There is no hydronephrosis. The mid small bowel is moderately dilated and fluid- filled. There is a transition point within the central abdomen on image 257 of [id number]. The distal small bowel is decompressed. Wall thickening of ileal loops is noted. This has been shown on prior exams. No abscess is present. No lymph adenopathy is noted. Interval development of compression fractures of L2, L3 and L4 and possibly L5 since CT of November 07, 2018 is noted. The L2 fracture extends through the posterior elements. This is probably subacute to chronic. Ankylosis of the sacroiliac joints is noted with anterior osteophytosis within the spine. IMPRESSION: 1. Moderately dilated fluid-filled mid small bowel with discrete transition point within the central abdomen with decompressed distal small bowel. This represents a moderate grade small bowel obstruction. 2. Cirrhosis with manifestations of portal hypertension including extensive varices formation, mild splenomegaly and a small amount of ascites. 3. Interval development of L2, L3 and L4 compression fractures since CT of December 07, 2018. L2 fracture extends through the posterior elements and therefore may be unstable. This fracture appears subacute to chronic. 4. Wall thickening of several ileal loops which has been shown on prior exams and may be related to inflammatory bowel disease such as Crohn's disease. 5. Osseous findings suggestive of ankylosing spondylitis.
[2019-09-06] MEDS ORDERED: LIDOCAINE HCL 2% 2 ML VIAL/AMP(20MG/ML) INFIL ONE (10:50)
[2019-09-06] MEDS ORDERED: PROPOFOL IV EMULSION 10 MG/ML 20 ML VIAL IV ONE (10:50)
--- NOTE | 2019-09-06 10:51 | Anesthesiology Progress Note ---
Date of Service September 06, 2019 Anesthesia Post Procedure Vital Signs Vital Signs: Temp Pulse Pulse Resp BP BP BP 09/06/19 10:31 36.6 C 62 18 113/64 09/06/19 07:12 36.4 C L 64 18 120/74 09/06/19 04:09 37 C 66 18 129/69 09/06/19 01:30 77 18 09/06/19 00:39 09/06/19 00:30 78 09/06/19 00:00 37.1 C 87 23 130/69 09/05/19 23:31 83 18 121/68 09/05/19 22:56 09/05/19 22:51 70 18 113/59 L 09/05/19 21:42 74 16 129/71 09/05/19 20:54 09/05/19 20:49 36.9 C 93 H 18 137/74 Pulse Ox Pulse Ox 09/06/19 10:31 97 09/06/19 07:12 97 09/06/19 04:09 92 09/06/19 01:30 99 09/06/19 00:39 98 09/06/19 00:30 09/06/19 00:00 98 09/05/19 23:31 97 09/05/19 22:56 97 09/05/19 22:51 88 L 09/05/19 21:42 97 09/05/19 20:54 99 09/05/19 20:49 97 Pain Intensity Abdomen: Pain Intensity: 8 Transfer of Care Handoff Completed per policy Notes Mental Status: alert / awake / arousable and participated in evaluation Patient Amnestic to Procedure: Yes Nausea / Vomiting: adequately controlled Pain: adequately controlled Airway Patency, RR, SpO2: stable & adequate BP & HR: stable & adequate Hydration State: stable & adequate Anesthetic Complications: no major complications apparent and Pt Satisfied with anesthetic care
--- NOTE | 2019-09-06 11:07 | GI REPORT ---
Patient Name: Lm Armenta Procedure Date: 09/06/2019 10:36 AM Date of : 1960 Admit Type: Inpatient Age: 59 Gender: Male Attending MD: Acacia Jeffries DO Procedure: Upper GI endoscopy Providers: Acacia Jeffries DO Referring MD: Acacia Jeffries DO Indications: Coffee-ground emesis Medicines: Monitored Anesthesia Care Complications: No immediate complications. Estimated blood loss: Minimal. Estimated Blood Loss: Estimated blood loss was minimal. Procedure: Pre-Anesthesia Assessment: - Prior to the procedure, a History and Physical was performed, and patient medications, allergies and sensitivities were reviewed. The patient's tolerance of previous anesthesia was reviewed. - The risks and benefits of the procedure and the sedation options and risks were discussed with the patient. All questions were answered and informed consent was obtained. - Patient identification and proposed procedure were verified prior to the procedure by the physician, the nurse and the critical care physician assistant. The procedure was verified in the procedure room. - Pre-procedure physical examination revealed no contraindications to sedation. - ASA Grade Assessment: IV - A patient with severe systemic disease that is a constant threat to life. - After reviewing the risks and benefits, the patient was deemed in satisfactory condition to undergo the procedure. - The anesthesia plan was to use monitored anesthesia care (MAC). - Immediately prior to administration of medications, the patient was re-assessed for adequacy to receive sedatives. - The heart rate, respiratory rate, oxygen saturations, blood pressure, adequacy of pulmonary ventilation, and response to care were monitored throughout the procedure. - The physical status of the patient was re-assessed after the procedure. After obtaining informed consent, the endoscope was passed under direct vision. Throughout the procedure, the patient's blood pressure, pulse, and oxygen saturations were monitored continuously. The Endoscope was introduced through the mouth, and advanced to the third part of duodenum. The upper GI endoscopy was accomplished without difficulty. The patient tolerated the procedure well. Findings: The upper third of the esophagus and middle third of the esophagus were normal. Three columns of non-bleeding grade I varices were found in the lower third of the esophagus, 30 to 35 cm from the incisors. They were 4 mm in largest diameter. No stigmata of recent bleeding were evident and no red mariaelena signs were present. A medium-sized hiatal hernia was found. The proximal extent of the gastric folds (end of tubular esophagus) was 30 cm from the incisors. The hiatal narrowing was 35 cm from the incisors. The Z-line was 30 cm from the incisors. Moderate portal hypertensive gastropathy was found in the entire examined stomach. The examined duodenum was normal. Impression: - Normal upper third of esophagus and middle third of esophagus. - Non-bleeding grade I esophageal varices. - Medium-sized hiatal hernia. - Portal hypertensive gastropathy. - Normal examined duodenum. - No specimens collected. Recommendation: - Observe patient's clinical course following today's procedure with therapeutic intervention. - Use Protonix (pantoprazole) 40 mg PO daily. - Repeat upper endoscopy in 1 year for surveillance. -No evidence of active bleeding today. Given the patient's description I suspect his coffee-ground emesis is related to the recent small bowel obstruction and perhaps a Caridad-Saravia tear. Acacia Jeffries D.O. Acacia Jeffries, 09/06/2019 11:07:20 AM This report has been signed electronically. Note Initiated On: 09/06/2019 10:36 AM Number of Addenda: 0 I attest to the content of the Intraoperative Record and orders documented therein, exceptions below {[id number]}
--- NOTE | 2019-09-06 11:09 | Communication Note ---
Date of Service: September 06, 2019 The patient underwent upper endoscopy this morning. Findings Grade 1 esophageal varices without any high risk stigmata 5 cm hiatal hernia For the hypertensive gastropathy Impression: Coffee-ground emesis likely related to a Caridad-Saravia tear. No evidence of active bleeding nor evidence of variceal hemorrhage Recommendations Continue with IV hydration Continue Protonix 1 time daily Upon discharge would recommend that the patient begin mesalamine as he is presently on no therapy for his inflammatory bowel disease Appreciate general surgery input
[2019-09-06] MEDS: MoRPHine SULFATE 2 MG/ML CARP IV PRN ×2 (12:00→19:06)
[2019-09-06 12:39] LABS: Hematocrit (blood only) 31.2 % (42-52); Hemoglobin 10.1 g/dL (14.0-18.0)
--- NOTE | 2019-09-06 13:07 | Hospitalist Progress Note ---
Date of Service September 06, 2019 Assessment & Plan (1) SBO (small bowel obstruction): 59 yo with PMH of Caridad-saravia tear, esophagitis, crohn's disease, alcoholic cirrhosis, esophageal varices present on admission with abdominal pain associated with vomiting CT abd/pelvis showed moderately dilated fluid-filled mid small bowel with discrete transition point within the central abdomen with decompressed distal small bowel. This represents a moderate grade small bowel obstruction. Surgery on board Case discussed with Dr. 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 Menezes Keep NPO for now Continue pain management Monitor electrolytes Hematemesis Possible related to the Caridad-Saravia tear Gastro on board S/P EGD done today showed Grade 1 esophageal varices without any high risk stigmata, 5 cm hiatal hernia. No active bleeding or evidence of variceal hemorrhage Hgb stable at 10.1 today Will change IV protonix to oral Monitor CBC History of Crohn's disease GI recommended that the patient begin mesalamine since he is not on any inflammatory bowel disease Stable Chronic anemia hemoglobin stable Subacute lumbar vertebral fracture CT showed interval development of L2, L3 and L4 compression fractures since CT of December 07, 2018. L2 fracture extends through the posterior elements and therefore may be unstable. Pt said that he believes that he injured his back about 2 weeks ago when he tried to lift something heavy Ortho on board Case discussed with ortho that plan to see him Continue pain control Alcoholic cirrhosis Esophageal varices CT showed cirrhosis with manifestations of portal hypertension including extensive varices formation, mild splenomegaly and a small amount of ascites. Lasix on hold since pt was NPO due to SBO Continue Rocephin for now for SBP prophylasix Stable Tobacco abuse Counseling on smoking cessation Hyperglycemia Hba1c 5.4 Continue monitor glucose DVT prophylaxis with SCDs Re: UGIB CODE status Full code Admission and Anticipated Discharge Date Admission Date: September 05, 2019 Subjective Pt was seen and examined Lying in bed with no distress Pt said that his abdominal pain is stable He said that he did not have any vomiting today He said that he is having a lot of back pain Pt said that about 2 weeks ago, he tried to lift something heavy Denies any chest pain, palpitation, dizziness and SOB Physical Exam Physical Exam: General- No acute distress Head- atraumatic Eyes- PERRL, EOMI, ENT- oropharynx clear Neck- supple, no JVD Lungs- clear to auscultation Heart- regular rhythm; no murmur Abdomen- +mild distended, +tenderness with palpation Extremities- no calf tenderness, + edema Neuro- alert, oriented x 3; PERRL, EOMI; no facial palsy; no dysarthria Skin- warm & dry Results & Data Results & Data ([facility]) Vital Signs (Past 12 Hours) Vital Signs Temp Pulse Resp BP BP Pulse Ox 09/06/19 12:00 36.3 C L 63 16 123/66 97 09/06/19 11:50 36.4 C L 62 18 126/66 99 09/06/19 11:19 60 16 119/58 L 97 09/06/19 11:04 63 16 102/62 97 09/06/19 10:49 36.6 C 68 16 104/65 98 09/06/19 10:31 36.6 C 62 18 113/64 97 09/06/19 07:12 36.4 C L 64 18 120/74 97 09/06/19 04:09 37 C 66 18 129/69 92 09/06/19 01:30 77 18 99
[2019-09-06] MEDS: OXYCODONE HCL IR 5 MG TAB (IMMEDIATE RELEASE) PO PRN ×2 (14:15→23:30)
--- NOTE | 2019-09-06 15:39 | Electrocardiogram Report ---
Test Reason : Blood Pressure : / mmHG Vent. Rate : 079 BPM Atrial Rate : 079 BPM P-R Int : 164 ms QRS Dur : 084 ms QT Int : 382 ms P-R-T Axes : 042 -53 071 degrees QTc Int : 438 ms Normal sinus rhythm Left anterior fascicular block Septal infarct (cited on or before 05-SEP-2019) Abnormal ECG When compared with ECG of 14-NOV-2018 17:24, T wave inversion now evident in Anterior leads Nonspecific T wave abnormality, improved in Lateral leads Confirmed by Andrea Marques ([id number]) on 09/06/2019 3:39:06 PM Referred By: REFERRED SELF Confirmed By:Andrea Marques
[2019-09-06] MEDS: LIDOCAINE 5% 1 PATCH TD SCH (19:06)
[2019-09-06] MEDS: cefTRIAXone SODIUM 1,000 MG/50 ML BAG IV SCH (21:10)
[2019-09-07] MEDS: OXYCODONE HCL IR 5 MG TAB (IMMEDIATE RELEASE) PO PRN ×2 (08:08→17:44)
[2019-09-07] MEDS: SACCHAROMYCES BOULARDII 250 MG CAP PO SCH (08:09)
[2019-09-07] MEDS: PANTOprazole 40 MG in SYRINGE 0 ML IV SCH (08:09)
[2019-09-07] MEDS: ATENOLOL 25 MG TABLET PO SCH (08:09)
[2019-09-07] MEDS: DOCUSATE SODIUM/SENNA 50/8.6MG TAB PO SCH ×2 (08:09→21:25)
[2019-09-07] MEDS: THIAMINE HCL 100 MG TAB PO SCH (08:09)
[2019-09-07] MEDS: NICOTINE 14 MG/24 HR PATCH TD SCH (08:10)
[2019-09-07] MEDS: FOLIC ACID 1 MG TAB PO SCH (08:10)
[2019-09-07 08:59] LABS: Mean Corpuscular Hgb Conc 32.6 g/dL (32-36)
[2019-09-07 09:06] LABS: Hemoglobin 10.1 g/dL (14.0-18.0); Mean Corpuscular Hemoglobin 25.1 pg (25-34); Mean Corpuscular Volume 76.9 fL (80-100); RDW Coefficient of Variation 19.1 % (11.5-14.5); RDW Standard Deviation 54.1 fL (36.4-46.3); Red Blood Count 4.03 M/uL (4.7-6.1); White Blood Count 9.49 K/uL (4.8-10.8)
[2019-09-07 09:18] LABS: Mean Platelet Volume 9.4 fL (7.4-10.4); Platelet Count 138 K/uL (130-400); Platelet Estimate Decreased (Normal)
--- NOTE | 2019-09-07 10:41 | Orthopedic Consultation ---
Date of Consultation September 07, 2019 Assessment & Plan (1) Compression fracture of lumbosacral spine with routine healing: This time the patient seems to be improving on his own. I discussed possible MRI of the lumbar spine. He states he does require sedation for an MRI. As he is improving we both agree continued observation is warranted. If he has a decline or change in neurologic status we would have to obtain an MRI otherwise I would allow him to continue with activity as tolerated. Present on Admission?: Yes History of Present Illness Reason for Consultation: Back pain Attending Physician: Mateo Rosado MD History of Present Illness This is a 59-year-old male admitted to the hospital for small bowel obstruction. He states that he had an onset of severe back pain approximately 2 weeks ago while lifting a container of kerosene. He states since that time it has steadily improved. He denies any numbness tingling or weakness to the lower extremities. He does have a history of back strain sprains in the past. He states at this time he is very comfortable in bed. He states he is able to ambulate without pain. He states that household activities tend to exacerbate his back discomfort. Allergies Allergy/AdvReac Type Severity Reaction Status Date / Time adalimumab Allergy Severe RASH Verified 09/06/19 10:24 etanercept Allergy Severe RASH Verified 09/06/19 10:24 shellfish derived Allergy Severe Anaphylaxis Verified 09/06/19 10:24 tromethamine Allergy Severe RASH Verified 09/06/19 10:24 Penicillins Allergy Intermediate PASSED OUT Verified 09/06/19 10:24 bee venom protein (honey bee) Allergy Unknown PASSED OUT Verified 09/06/19 10:24 benzyl alcohol Allergy Unknown RASH Verified 09/06/19 10:24 mouse protein Allergy Unknown FACE AND Verified 09/06/19 10:24 MOUTH SWELL secukinumab Allergy Unknown FACE AND Verified 09/06/19 10:24 MOUTH SWELL sorbitan esters Allergy Unknown FACE AND Verified 09/06/19 10:24 MOUTH SWELL varenicline AdvReac Unknown VEINS IN Verified 09/06/19 10:24 FEET BLEW Home Medications Home Medications Medication Instructions Recorded Confirmed Type atenolol 25 mg PO QAM 03/16/18 09/05/19 History oxycodone 7.5 mg PO QID PRN 03/16/18 09/05/19 History pantoprazole 40 mg PO QAM 03/16/18 09/05/19 History bisacodyl [Dulcolax (bisacodyl)] 5 mg PO DAILY PRN 08/30/18 09/05/19 History polyethylene glycol 3350 [Miralax] 17 g PO DAILY PRN 08/30/18 09/05/19 History Florastor 250 mg PO DAILY 12/07/18 09/05/19 History folic acid 1 mg PO QAM 04/12/19 09/05/19 History ciprofloxacin HCl 500 mg PO QAM 09/05/19 09/05/19 History furosemide 20 mg PO QAM 09/05/19 09/05/19 History thiamine HCl (vitamin B1) [Vitamin 100 mg PO QAM 09/05/19 09/05/19 History B-1] Patient History Medical History Ankylosing spondylitis Cirrhosis of liver Crohns disease Encounter for pre-operative examination Esophageal varices with banding GERD (gastroesophageal reflux disease) Hypertension Mitral valve prolapse ?pt states some providers say he does, some say he doesnt--no felt puller Peritonitis with abscess of intestine pt reports abscess drained in October [facility], treated and remains on abx Rheumatoid arthritis Surgical History History of abdominal paracentesis History of colonoscopy most recent 08/2018 [facility] History of esophagogastroduodenoscopy (EGD) History of right inguinal hernia repair had 1 umbilical hernia repair at same time History of tonsillectomy and adenoidectomy History of tooth extraction wisdom teeth History of umbilical hernia repair ruptured and repaired 07/2017 Family History Mother Family history of reaction to anesthesia "slow to wake up a couple different times" Father Lung cancer Social History Preferred Language: Finnish Communication Ability: Effective Patient Day Coordinator Required: No Beliefs That Will Affect Care: None Current Living Situation: Alone Current Living Situation Comment: lives in a trailer Other Information That Helps Us Care for You: No Feels Safe at Home: Yes Safety Concerns: Feels Safe At This Time Smoking Status: Heavy tobacco smoker Tobacco Type: cigarettes ; Cigarettes Per Day: 10 per day ; Do You Dip or Chew Tobacco: No ; Second Hand Exposure: No ; Tobacco Cessation Education Requested by Patient: No Hx Alcohol Use: No Hx Substance Use: No Physical Exam Physical Exam: Patient is good strength testing appears very comfortable at this time. Results & Data ([facility]) Vital Signs (Past 12 Hours) Vital Signs Temp Pulse Pulse Resp BP Pulse Ox 09/07/19 07:39 79 09/07/19 07:14 36.6 C 86 20 123/86 93 09/07/19 03:50 36.5 C 85 18 122/68 95 09/06/19 23:30 36.7 C 63 75 18 130/73 96
--- NOTE | 2019-09-07 12:57 | XRay Report ---
KUB HISTORY: Follow up study in a patient with reported small bowel obstruction f/u SBO COMPARISON: CT abdomen and pelvis 09/05/2019 FINDINGS: Persistent small bowel distention of the central abdomen measuring up to approximately 5.2 cm demonstrating air-fluid levels. Paucity of gas within the large bowel. Moderate fecal retention. No renal calculi. No ureteral calculi. No pneumoperitoneum or pneumatosis. No fracture. IMPRESSION: Persistent small bowel obstruction without pneumoperitoneum identified. Continued follow-up recommend ed. ACT 112: Negative or not required by law. The above report was generated using voice recognition software. It may contain grammatical, syntax o r spelling errors. Electronically signed by: Merritt Barnes M.D. 09/07/2019 12:56 PM
--- NOTE | 2019-09-07 14:19 | Surgery Progress Note ---
Date of Service September 07, 2019 Assessment & Plan (1) SBO (small bowel obstruction): KUB as noted but clinically he is improved. I agree that can begin ice chips and sips with may be some clear liquids as well. He has no evidence of peritonitis and there is no indication for surgical intervention at this time. We will continue to follow Subjective Has much less pain today Past large amounts of flatus Has had 3 bowel movements Denies nausea and vomiting Physical Exam Gastrointestinal (Abdomen): Inspection/Auscultation: + abdomen distended (Mild but less) Percussion/Palpation: + abdomen tender (Mild but less); + abdomen not soft Results & Data Vital Signs (Past 12 Hours) Vital Signs Temp Pulse Pulse Resp BP Pulse Ox 09/07/19 07:39 79 09/07/19 07:14 36.6 C 86 20 123/86 93 09/07/19 03:50 36.5 C 85 18 122/68 95 Laboratory Results 09/07/19 Range/Units 08:52 WBC 9.49 (4.8-10.8) K/uL RBC 4.03 L (4.7-6.1) M/uL Hgb 10.1 L (14.0-18.0) g/dL Hct 31.0 L (42-52) % MCV 76.9 L (80-100) fL MCH 25.1 (25-34) pg MCHC 32.6 (32-36) g/dL RDW Std Deviation 54.1 H (36.4-46.3) fL RDW Coeff of Ronnie 19.1 H (11.5-14.5) % Plt Count 138 (130-400) K/uL MPV 9.4 (7.4-10.4) fL Platelet Estimate Decreased L (Normal) Diagnostic Findings KUB HISTORY: Follow up study in a patient with reported small bowel obstruction f/u SBO COMPARISON: CT abdomen and pelvis 09/05/2019 FINDINGS: Persistent small bowel distention of the central abdomen measuring up to approximately 5.2 cm demonstrating air-fluid levels. Paucity of gas within the large bowel. Moderate fecal retention. No renal calculi. No ureteral calculi. No pneumoperitoneum or pneumatosis. No fracture. IMPRESSION: Persistent small bowel obstruction without pneumoperitoneum identified. Continued follow-up recommended.
--- NOTE | 2019-09-07 17:15 | Hospitalist Progress Note ---
Date of Service September 07, 2019 Assessment & Plan (1) SBO (small bowel obstruction): 59 yo with PMH of Caridad-saravia tear, esophagitis, crohn's disease, alcoholic cirrhosis, esophageal varices present on admission with abdominal pain associated with vomiting CT abd/pelvis showed moderately dilated fluid-filled mid small bowel with discrete transition point within the central abdomen with decompressed distal small bowel. This represents a moderate grade small bowel obstruction. Surgery on board Case discussed with Dr. 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 Brown KUB done today showed persistent small bowel obstruction without pneumoperitoneum identified. Starting on clear liquid diet if pain worsening or develop any vomiting, will change to NPO Continue pain management Monitor electrolytes Hematemesis Possible related to the Caridad-Saravia tear Gastro on board S/P EGD done today showed Grade 1 esophageal varices without any high risk stigmata, 5 cm hiatal hernia. No active bleeding or evidence of variceal hemorrhage Hgb stable at 10.1 today Will change IV protonix to oral Monitor CBC History of Crohn's disease GI recommended that the patient begin mesalamine since he is not on any inflammatory bowel disease Stable Chronic anemia hemoglobin stable Subacute lumbar vertebral fracture CT showed interval development of L2, L3 and L4 compression fractures since CT of December 07, 2018. L2 fracture extends through the posterior elements and therefore may be unstable. Pt said that he believes that he injured his back about 2 weeks ago when he tried to lift something heavy Ortho on board Case discussed with ortho that recommended conservative management If develops any neurology symptoms or pain worsening, will consider to get an MRI Continue pain control Alcoholic cirrhosis Esophageal varices CT showed cirrhosis with manifestations of portal hypertension including extensive varices formation, mild splenomegaly and a small amount of ascites. Lasix on hold since pt was NPO due to SBO Continue Rocephin for now for SBP prophylasix Stable Tobacco abuse Counseling on smoking cessation Hyperglycemia Hba1c 5.4 Continue monitor glucose DVT prophylaxis with SCDs Re: UGIB CODE status Full code Admission and Anticipated Discharge Date Admission Date: September 05, 2019 Subjective Pt was seen and examined. Lying in bed with no distress Pt said that he continues to have abdominal pain, but improves alittle He said that last episode of vomiting was yesterday He said that he had BM today Denies any chest pain, palpitation, dizziness and SOB Physical Exam Physical Exam: General- No acute distress Head- atraumatic Eyes- PERRL, EOMI, ENT- oropharynx clear Neck- supple, no JVD Lungs- clear to auscultation Heart- regular rhythm; no murmur Abdomen- +mild distended, +mild tenderness with palpation Extremities- no calf tenderness, + edema Neuro- alert, oriented x 3; PERRL, EOMI; no facial palsy; no dysarthria Skin- warm & dry Results & Data Results & Data ([facility]) Vital Signs (Past 12 Hours) Vital Signs Temp Pulse Pulse Resp BP BP Pulse Ox 09/07/19 17:06 69 09/07/19 14:57 36.8 C 81 18 128/65 95 09/07/19 07:39 79 09/07/19 07:14 36.6 C 86 20 123/86 93
[2019-09-07] MEDS: LIDOCAINE 5% 1 PATCH TD SCH (17:41)
[2019-09-07] MEDS: cefTRIAXone SODIUM 1,000 MG/50 ML BAG IV SCH (21:25)
[2019-09-08] MEDS: OXYCODONE HCL IR 5 MG TAB (IMMEDIATE RELEASE) PO PRN ×3 (01:08→14:28)
[2019-09-08] MEDS: ATENOLOL 25 MG TABLET PO SCH (08:23)
[2019-09-08] MEDS: FOLIC ACID 1 MG TAB PO SCH (08:23)
[2019-09-08] MEDS: DOCUSATE SODIUM/SENNA 50/8.6MG TAB PO SCH (08:23)
[2019-09-08] MEDS: THIAMINE HCL 100 MG TAB PO SCH (08:23)
[2019-09-08] MEDS: SACCHAROMYCES BOULARDII 250 MG CAP PO SCH (08:23)
[2019-09-08] MEDS: NICOTINE 14 MG/24 HR PATCH TD SCH (08:23)
[2019-09-08 08:59] LABS: BUN Creatinine Ratio 14.3 (10-20); Calcium 8.4 mg/dl (8.5-10.1); Creatinine Clr Calc Pharmacy 119.3 ml/min; Est GFR (African American) 134.1; Est GFR (Non-African American) 115.7; Magnesium 1.6 mg/dl (1.8-2.4); Potassium 3.4 mmol/L (3.5-5.1)
[2019-09-08] MEDS ORDERED: PANTOprazole 40 MG TAB PO SCH (09:00)
[2019-09-08] MEDS ORDERED: FUROSEMIDE 20 MG TAB PO SCH (11:00)
[2019-09-08] MEDS ORDERED: MAGNESIUM SULFATE / D5W 1 GM/100 ML BAG IV ONE (11:00)
[2019-09-08] MEDS ORDERED: POTASSIUM CHLORIDE 20 MEQ TABCR PO ONE (11:00)
--- NOTE | 2019-09-08 12:35 | Surgery Progress Note ---
Date of Service September 08, 2019 Assessment & Plan (1) SBO (small bowel obstruction): Doing very well Small bowel obstruction is resolved Would really like to go home Think that if he tolerates his full liquid diet for lunch can go home this afternoon with full liquid diet for a few days and then advance to soft diet Subjective Feels really good today Denies abdominal pain Denies nausea and vomiting Passing bowels and flatus Tolerated clear liquids Physical Exam Gastrointestinal (Abdomen): Inspection/Auscultation: normal bowel sounds; abdomen not distended Percussion/Palpation: abdomen soft; abdomen nontender Results & Data Vital Signs (Past 12 Hours) Vital Signs Temp Pulse Pulse Resp BP BP Pulse Ox 09/08/19 11:46 36.6 C 71 20 120/67 93 09/08/19 07:23 71 09/08/19 07:18 36.7 C 75 18 124/71 94 09/08/19 03:30 36.8 C 77 20 126/65 93
--- NOTE | 2019-09-08 14:24 | Hospitalist Progress Note ---
Date of Service September 08, 2019 Assessment & Plan (1) SBO (small bowel obstruction): 59 yo with PMH of Caridad-saravia tear, esophagitis, crohn's disease, alcoholic cirrhosis, esophageal varices present on admission with abdominal pain associated with vomiting CT abd/pelvis showed moderately dilated fluid-filled mid small bowel with discrete transition point within the central abdomen with decompressed distal small bowel. This represents a moderate grade small bowel obstruction. Surgery on board Case discussed with Dr. 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 Brown KUB done today showed persistent small bowel obstruction without pneumoperitoneum identified. Tolerated clear liquid diet, then diet advanced to full liquid Case discussed with surgery today since pt would like to go home Currently denies any pain, nausea and vomiting Dr. Brown ok to discharge home today if pt tolerates full liquid diet Advise patient to stay on full liquid diet for a few days after discharge then advance to soft diet slwoly Clinically improves Follow up with your primary care provider within 1 week Hematemesis Possible related to the Caridad-Saravia tear Gastro on board S/P EGD done today showed Grade 1 esophageal varices without any high risk stigmata, 5 cm hiatal hernia. No active bleeding or evidence of variceal hemorrhage Hgb stable at 10.1 Continue PPI Stable History of Crohn's disease GI recommended that the patient begin mesalamine since he is not on any inflammatory bowel disease Stable Chronic anemia hemoglobin stable Hypokalemia K replaced Monitor BMP Subacute lumbar vertebral fracture CT showed interval development of L2, L3 and L4 compression fractures since CT of December 07, 2018. L2 fracture extends through the posterior elements and therefore may be unstable. Pt said that he believes that he injured his back about 2 weeks ago when he tried to lift something heavy Ortho on board Case discussed with ortho that recommended conservative management If develops any neurology symptoms or pain worsening, will consider to get an MRI Continue pain control Clinically improves Alcoholic cirrhosis Esophageal varices CT showed cirrhosis with manifestations of portal hypertension including extensive varices formation, mild splenomegaly and a small amount of ascites. Lasix resumed today Continue Rocephin for now for SBP prophylasix Stable Tobacco abuse Counseling on smoking cessation Hyperglycemia Hba1c 5.4 Continue monitor glucose DVT prophylaxis with SCDs Re: UGIB CODE status Full code Disposition Discharge home today Follow up with your primary care physician Follow up with your Gastroenterology Admission and Anticipated Discharge Date Admission Date: September 05, 2019 Subjective Pt was seen and examined Lying in bed with no distress Pt said that he feels much better he said that he tolerated clear liquid diet He said that he has bowel movement this morning He wants to go home today He said that today it is the only day he always spends with his family He said that he tolerated full liquid diet Denies any vomiting, nausea, chest pain, palpitation and SOB Physical Exam Physical Exam: General- No acute distress Head- atraumatic Eyes- PERRL, EOMI, ENT- oropharynx clear Neck- supple, no JVD Lungs- clear to auscultation Heart- regular rhythm; no murmur Abdomen- +mild distended, + nontender Extremities- no calf tenderness, + edema Neuro- alert, oriented x 3; PERRL, EOMI; no facial palsy; no dysarthria Skin- warm & dry Results & Data Results & Data ([facility]) Vital Signs (Past 12 Hours) Vital Signs Temp Pulse Pulse Resp BP BP Pulse Ox 09/08/19 11:46 36.6 C 71 20 120/67 93 09/08/19 07:23 71 09/08/19 07:18 36.7 C 75 18 124/71 94 09/08/19 03:30 36.8 C 77 20 126/65 93
--- NOTE | 2019-09-08 18:37 | Discharge Summary ---
Date of Service September 08, 2019 Admission HPI Per Admitting Provider History obtained from patient and records. Medical history significant for hypertension, alcoholic cirrhosis, history of Crohn's disease, chronic anemia (baseline hemoglobin 8-9), history ankylosing spondylitis, past alcohol abuse, ongoing tobacco abuse. Recent confinement [facility] November 2018 for abdominal fluid collection status post IR guided drainage. This morning patient woke up with epigastric discomfort with subsequent nausea and emesis. Constipation symptoms, small brown bowel movement today. Bilious emesis later followed by hematemesis. No chest pain, S OB, fever, chills. Patient seen at the ER for evaluation. Patient given Cefoxitin at the ER. Medical History as above 2018 EGD showed esophageal varices, portal hypertensive gastropathy 2018 colonoscopy showed sigmoid polyp, tortuous colon Surgical History : Umbilical hernia repair, tonsillectomy/adenoidectomy Family History : Ankylosing spondylitis, lung cancer, diabetes, heart disease Personal/Social history : Half pack daily, no recent EtOH intake, disabled Admission Exam Per Admitting Provider GENERAL: Comfortable, slightly anxious, no respiratory distress SKIN: Pallor, warm HEENT: Pale palpebral conjunctivae, no ptosis, dry buccal mucosa NECK : Supple, no tenderness CHEST : Decreased breath sounds , no tenderness HEART : RRR, no obvious murmurs ABDOMEN: Some distention, minimal epigastric tenderness EXTREMITIES : Bilateral LE swelling, no LE tenderness, no other conspicuous deformities noted NEUROLOGIC : Coherent, no facial asymmetry, no other gross focality Principal Diagnosis SBO (small bowel obstruction) Hematemesis History of Crohn's disease Chronic anemia Hypokalemia Subacute lumbar vertebral fracture Alcoholic cirrhosis Esophageal varices Tobacco abuse Discharge Exam General- No acute distress Head- atraumatic Eyes- PERRL, EOMI, ENT- oropharynx clear Neck- supple, no JVD Lungs- clear to auscultation Heart- regular rhythm; no murmur Abdomen- +mild distended, + nontender Extremities- no calf tenderness, + edema Neuro- alert, oriented x 3; PERRL, EOMI; no facial palsy; no dysarthria Skin- warm & dry Discharge Data Allergies Allergy/AdvReac Type Severity Reaction Status Date / Time adalimumab Allergy Severe RASH Verified 09/06/19 10:24 etanercept Allergy Severe RASH Verified 09/06/19 10:24 shellfish derived Allergy Severe Anaphylaxis Verified 09/06/19 10:24 tromethamine Allergy Severe RASH Verified 09/06/19 10:24 Penicillins Allergy Intermediate PASSED OUT Verified 09/06/19 10:24 bee venom protein (honey bee) Allergy Unknown PASSED OUT Verified 09/06/19 10:24 benzyl alcohol Allergy Unknown RASH Verified 09/06/19 10:24 mouse protein Allergy Unknown FACE AND Verified 09/06/19 10:24 MOUTH SWELL secukinumab Allergy Unknown FACE AND Verified 09/06/19 10:24 MOUTH SWELL sorbitan esters Allergy Unknown FACE AND Verified 09/06/19 10:24 MOUTH SWELL varenicline AdvReac Unknown VEINS IN Verified 09/06/19 10:24 FEET BLEW Consultations 09/05/19 22:20 ED Decision to Admit Stat 09/05/19 23:38 Consult Orthopedic Surgery Routine 09/06/19 00:39 Consult Gastroenterology Routine Consult General Surgery Routine Procedures Performed Operation Date: 09/06/19 08:30 Actual Procedures p Esophagogastroduodenoscopy(Not Applicable) - Acacia Jeffries Ordered Studies 09/05/19 20:48 CT abd pelvis IV con only Stat CT OF THE ABDOMEN AND PELVIS WITH CONTRAST CLINICAL HISTORY: Epigastric pain. Hematemesis. COMPARISON STUDY: CT of the abdomen and pelvis December 07, 2018. TECHNIQUE: Following IV administration of 94 mL of Optiray-320, axial images of the abdomen and pelvis were obtained from the lung bases to the proximal femurs. Images were reviewed in the axial, sagittal, and coronal planes. IV contrast was administered without complication. Automated exposure control was utilized for the study. A dose lowering technique was utilized adhering to the principles of ALARA. CT DOSE: 408.66 mGy.cm FINDINGS: Imaged portions of the lower chest demonstrate mild emphysema. No pneumatosis, free air or portal venous gas is present. The liver is cirrhotic. Sensitivity for detection of hypervascular lesions is diminished on this portal venous phase exam but no hepatic lesions are identified. There is mild splenomegaly. A small amount of ascites within the abdomen and pelvis is noted. Extensive collateral formation is again shown, including esophageal varices. The adrenal glands, kidneys and pancreas are unremarkable double. There is no biliary or pancreatic ductal dilatation. This exam is mildly compromised by artifact. The main, left and right portal veins are patent. The superior mesenteric vein is patent. Moderate plaque of the abdominal aorta is noted. There is no hydronephrosis. The mid small bowel is moderately dilated and fluid- filled. There is a transition point within the central abdomen on image 257 of [id number]. The distal small bowel is decompressed. Wall thickening of ileal loops is noted. This has been shown on prior exams. No abscess is present. No lymphadenopathy is noted. Interval development of compression fractures of L2, L3 and L4 and possibly L5 since CT of November 07, 2018 is noted. The L2 fracture extends through the posterior elements. This is probably subacute to chronic. Ankylosis of the sacroiliac joints is noted with anterior osteophytosis within the spine. IMPRESSION: 1. Moderately dilated fluid-filled mid small bowel with discrete transition point within the central abdomen with decompressed distal small bowel. This represents a moderate grade small bowel obstruction. 2. Cirrhosis with manifestations of portal hypertension including extensive varices formation, mild splenomegaly and a small amount of ascites. 3. Interval development of L2, L3 and L4 compression fractures since CT of December 07, 2018. L2 fracture extends through the posterior elements and therefore may be unstable. This fracture appears subacute to chronic. 4. Wall thickening of several ileal loops which has been shown on prior exams and may be related to inflammatory bowel disease such as Crohn's disease. 5. Osseous findings suggestive of ankylosing spondylitis. ACT 112: Negative or not required by law. Electronically signed by: Raul Burkett M.D. 09/05/2019 10:09 PM Dictated: 09/05/192136 Transcribed: 09/05/192136 XR chest 1V portable CLINICAL HISTORY: vomiting COMPARISON STUDY: Chest radiograph November 14, 2018. FINDINGS: Lung volumes are normal. Lungs are clear. There is no pneumothorax or pleural effusion. Cardiac size is normal. Mediastinal contours are normal. There is no evidence for pulmonary edema. IMPRESSION: No acute cardiopulmonary findings. ACT 112: Negative or not required by law. Electronically signed by: Raul Burkett M.D. 09/05/2019 9:09 PM Dictated: 09/05/192105 Transcribed: 09/05/192105 XR lumbar spine 2-3V CLINICAL HISTORY: back pain COMPARISON STUDY: 05/31/2015, CT scan dated 09/05/2019 FINDINGS: There is ankylosis of the dorsal spine. There is stable widening of the L5-S1 disc space. The bones are osteopenic. There are progressive superior endplate L2 and L3 compression fractures. There is a stable superior endplate L1 compression fracture. There is a new mild superior endplate L4 compression fracture. There are dilated small bowel loops with air-fluid levels. The findings are consistent with a small bowel obstruction. IMPRESSION: 1. Small bowel obstructive pattern 2. Ankylosis of the thoracic spine 3. Osteopenia and multiple superior endplate lumbar vertebral body compression deformities, as were described on the recent CT scan. ACT 112: Negative or not required by law. Electronically signed by: Jermaine Wiseman M.D. 09/06/2019 8:41 AM Dictated: 09/06/19 0838 Transcribed: 09/06/19837 KUB HISTORY: Follow up study in a patient with reported small bowel obstruction f/u SBO COMPARISON: CT abdomen and pelvis 09/05/2019 FINDINGS: Persistent small bowel distention of the central abdomen measuring up to approximately 5.2 cm demonstrating air-fluid levels. Paucity of gas within the large bowel. Moderate fecal retention. No renal calculi. No ureteral calculi. No pneumoperitoneum or pneumatosis. No fracture. IMPRESSION: Persistent small bowel obstruction without pneumoperitoneum identified. Con tinued follow-up recommended. ACT 112: Negative or not required by law. The above report was generated using voice recognition software. It may contain grammatical, syntax or spelling errors. Electronically signed by: Merritt Barnes M.D. 09/07/2019 12:56 PM Dictated: 09/07/19 1254 Transcribed: 09/07/19 1254 Hospital Course (1) SBO (small bowel obstruction): 59 yo with PMH of Caridad-clemente tear, esophagitis, crohn's disease, alcoholic cirrhosis, esophageal varices present on admission with abdominal pain associated with vomiting CT abd/pelvis showed moderately dilated fluid-filled mid small bowel with discrete transition point within the central abdomen with decompressed distal small bowel. This represents a moderate grade small bowel obstruction. Surgery on board Case discussed with Dr. 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 Brown KUB done today showed persistent small bowel obstruction without pneumoperitoneum identified. Tolerated clear liquid diet, then diet advanced to full liquid Case discussed with surgery today since pt would like to go home Currently denies any pain, nausea and vomiting Dr. Brown ok to discharge home today if pt tolerates full liquid diet Advise patient to stay on full liquid diet for a few days after discharge then advance to soft diet slwoly Clinically improves Follow up with your primary care provider within 1 week Hematemesis Possible related to the Caridad-Clemente tear Gastro on board S/P EGD done today showed Grade 1 esophageal varices without any high risk stigmata, 5 cm hiatal hernia. No active bleeding or evidence of variceal hemorrhage Hgb stable at 10.1 Continue PPI Stable History of Crohn's disease GI recommended that the patient begin mesalamine since he is not on any inflammatory bowel disease Stable Chronic anemia hemoglobin stable Hypokalemia K replaced Monitor BMP Subacute lumbar vertebral fracture CT showed interval development of L2, L3 and L4 compression fractures since CT of December 07, 2018. L2 fracture extends through the posterior elements and therefore may be unstable. Pt said that he believes that he injured his back about 2 weeks ago when he tried to lift something heavy Ortho on board Case discussed with ortho that recommended conservative management If develops any neurology symptoms or pain worsening, will consider to get an MRI Continue pain control Clinically improves Alcoholic cirrhosis Esophageal varices CT showed cirrhosis with manifestations of portal hypertension including extensive varices formation, mild splenomegaly and a small amount of ascites. Lasix resumed today Continue Rocephin for now for SBP prophylasix Stable Tobacco abuse Counseling on smoking cessation Hyperglycemia Hba1c 5.4 Continue monitor glucose DVT prophylaxis with SCDs Re: UGIB CODE status Full code Disposition Discharge home today Follow up with your primary care physician Follow up with your Gastroenterology Total Time Total Time Spent Total Time Spent (In Minutes): 35 minutes Total Time Includes: Examination of the Patient, Discharge Planning, Medication Reconciliation, Communication With Other Providers and Other Discharge Plan Discharge Items Patient Disposition: Home - Self-Care Reason For Visit: UGIB Discharge Diagnosis: SBO (small bowel obstruction) Hematemesis History of Crohn's disease Chronic anemia Hypokalemia Subacute lumbar vertebral fracture Alcoholic cirrhosis Esophageal varices Tobacco abuse Condition on Discharge: Good Activity: Resume your previous activity Non-emergency contact: Primary Care Provider Call non-emergency contact if: you have any medication questions and your temperature is above 101 Follow-up/Referrals: Howard Black DO [Primary Care Provider] - Diet: Full liquid Addtl Attending Provider Instructions: Follow up with your primary care provider in 1 weeks (please call to schedule for the appointment) Follow up with your Gastroenterology in 1 to 2 weeks (please call to schedule for the appointment) Follow up with orthopedic Dr. Lowery if back pain worsening or developing any neurological symptoms (Such as numbness in your lower extremity,..) Seek urgent medical attention if you cannot control your bladder and or your bowel movement Counseling on smoking cessation Recommended to follow a full liquid diet for the next 2 to 3 days, then advance slowly as tolerated to soft diet Check your BMP in 1 to 2 weeks to monitor your electrolytes (Your physician will order it) Check CBC in 1-2 week to monitor your hemoglobin (Your physician will order it) Please seek medical attention if abdomen and vomiting reoccur Fall precaution Pending Studies at Discharge: No Stand-Alone Forms: My [facility] [employer], Smoking Cessation Medications and DC Order Prescriptions: Continued bisacodyl [Dulcolax (bisacodyl)] 5 mg Tablet,Delayed Release (Dr/Ec) 5 mg PO DAILY PRN (Reason: Constipation) RF: 0 polyethylene glycol 3350 [Miralax] 17 gram/dose Powder 17 g PO DAILY PRN (Reason: Constipation) RF: 0 folic acid 1 mg Tablet 1 mg PO QAM RF: 0 atenolol 25 mg Tablet 25 mg PO QAM RF: 0 pantoprazole 40 mg Tablet,Delayed Release (Dr/Ec) 40 mg PO QAM RF: 0 oxycodone 5 mg Tablet 7.5 mg PO QID PRN (Reason: Pain) RF: 0 Florastor 250 mg capsule 250 mg PO DAILY RF: 0 thiamine HCl (vitamin B1) [Vitamin B-1] 100 mg tablet 100 mg PO QAM RF: 0 ciprofloxacin HCl 500 mg tablet 500 mg PO QAM RF: 0 furosemide 20 mg tablet 20 mg PO QAM RF: 0 Discharge Orders: Discharge Order (Routine); Ordered 09/08/19 Ordered By: Mateo Sheppard/Other Patient Handouts: Obstruction Sm Bowel Admission Data Admit Date/Time: 09/05/19 23:17 Attending Provider: Mateo Rosado Admit Provider: Rich Valero Primary Care Provider: Howard Black Other Providers: Rich Valero ; Alfonzo Lowery ; Josee Abreu ; Valentina Fatima ; Chaitanya Santoro ; Sophia Hughes ; Cholo Bliss ; Acacia Jeffries ; Levy Montoya ; Janeen Clay ; Nakul Larios ; Beni Clark ; Lavonne Villa ; Anuja Hernadez ; Love Singh ; Joelle Waller ; Wallace Escobar ; Armani Brown Other Interventions: Discharge Summary Assessment (RN) Last Done: 09/08/19 16:33 DC Date/Time DO NOT enter until pt leaves facility: 09/08/19 17:15
== END 2019-09-08 17:15 | disposition home or self-care (01) | DRG 389 ==
LOC: ED 20:40 → 2W 23:17

== ENCOUNTER 2021-02-26 13:50 | Observation (INO) ==
[2021-02-26] MEDS ORDERED: SODIUM CHLORIDE 0.9% 1000ML 500 ML IV ONE (14:41)
[2021-02-26] MEDS ORDERED: SODIUM CHLORIDE 0.9% 250 ML IV PRN (14:47)
[2021-02-26 15:12] LABS: INR 1.5 (0.9-1.1); Prothrombin Time 14.4 Seconds (9.0-12.0)
[2021-02-26 15:16] LABS: iSTAT Hemoglobin 6.5 g/dl (14.0-18.0); iSTAT Ionized Calcium 1.13 mmol/l (1.12-1.32); iSTAT Potassium 4.2 mmol/L (3.3-5.0)
[2021-02-26 15:25] LABS: Alanine Aminotransferase 24 U/L (12-78); Albumin Level 2.2 gm/dl (3.4-5.0); Aspartate Aminotransferase 17 U/L (15-37); BUN Creatinine Ratio 17.8 (10-20); Blood Urea Nitrogen 19 mg/dl (7-18); Calcium 7.4 mg/dl (8.5-10.1); Carbon Dioxide 22 mmol/L (21-32); Chloride 109 mmol/L (98-107); Est GFR (African American) 91.3 ml/min; Est GFR (Non-African American) 78.8 ml/min; Glucose 90 mg/dl (70-99); Magnesium 1.6 mg/dl (1.8-2.4); Potassium 4.1 mmol/L (3.5-5.1); Sodium 136 mmol/L (136-145)
[2021-02-26 15:29] LABS: Albumin Globulin Ratio 0.6 (0.9-2); Alkaline Phosphatase 51 U/L (45-117); Bilirubin,Total 0.9 mg/dl (0.2-1); Globulin 3.4 gm/dl (2.5-4.0); Total Protein 5.6 gm/dl (6.4-8.2); Troponin I < 0.015 ng/ml (0-0.045)
--- NOTE | 2021-02-26 15:32 | XRay Report ---
SINGLE VIEW CHEST CLINICAL HISTORY: Anemia. FINDINGS: 2 AP, portable, upright chest radiographs are compared to study dated 09/05/2019. The patient 's head obscures the apices. The heart is top normal for projection. The pulmonary vasculature is non congested. Chronic interstitial thickening is similar to previous. Mild scarring/atelectasis is noted at the lung bases. No airspace consolidation or large pleural effusion is identified. No pneumothora x is seen. The skeletal structures are osteopenic. The bony thorax is grossly intact. IMPRESSION: No acute cardiopulmonary abnormality. ACT 112: Negative or not required by law. Electronically signed by: Herson Alvarez M.D. 02/26/2021 3:31 PM
[2021-02-26 16:06] LABS: Hematocrit (blood only) 18.3 % (42-52); Mean Corpuscular Hgb Conc 27.3 g/dL (32-36); Platelet Count 95 K/uL (130-400); RDW Coefficient of Variation 21.8 % (11.5-14.5); RDW Standard Deviation 43.2 fL (36.4-46.3); Red Blood Count 3.33 M/uL (4.7-6.1); White Blood Count 5.99 K/uL (4.8-10.8)
--- NOTE | 2021-02-26 16:10 | Emergency Department Note ---
History of Present Illness General Chief complaint: Abnormal Labs/Diagnostic Testing Stated complaint: HEMOGLOBIN IS AT 5 History of Present Illness Maximum Pain Intensity: 0 This patient is a 60-year-old male who presents emergency department via private vehicle for evaluation of abnormal labs. The patient saw his PCP this morning. Labs are drawn. It was noted that he had a very low hemoglobin of approximately 5. The patient currently denies any chest pain, shortness of breath or dizziness. He denies any black or bloody stools. The patient does have a history of Crohn's disease. He denies any abdominal pain. He does not take any anticoagulation. Home Medications Medication Instructions Recorded Confirmed Type atenolol 25 mg tablet 25 mg PO QAM 03/16/18 02/26/21 History oxycodone 5 mg tablet 7.5 mg PO QID PRN 03/16/18 02/26/21 History pantoprazole 40 mg tablet,delayed 40 mg PO QAM 03/16/18 02/26/21 History release Saccharomyces boulardii 250 mg 250 mg PO DAILY 12/07/18 02/26/21 History capsule (Florastor) ciprofloxacin HCl 500 mg tablet 500 mg PO QAM 09/05/19 02/26/21 History furosemide 20 mg tablet 20 mg PO QAM 09/05/19 02/26/21 History thiamine HCl (vitamin B1) 100 mg 100 mg PO QAM 09/05/19 02/26/21 History tablet (Vitamin B-1) folic acid 1 mg tablet 1 mg PO DAILY 02/26/21 02/26/21 History spironolactone 50 mg tablet 100 mg PO DAILY 02/26/21 02/26/21 History Allergies Allergy/AdvReac Type Severity Reaction Status Date / Time adalimumab Allergy Severe RASH Verified 02/26/21 16:23 etanercept Allergy Severe RASH Verified 02/26/21 16:23 shellfish derived Allergy Severe Anaphylaxis Verified 02/26/21 16:23 tromethamine Allergy Severe RASH Verified 02/26/21 16:23 Penicillins Allergy Intermediate PASSED OUT Verified 02/26/21 16:23 bee venom protein (honey bee) Allergy Unknown PASSED OUT Verified 02/26/21 16:23 benzyl alcohol Allergy Unknown RASH Verified 02/26/21 16:23 mouse protein Allergy Unknown FACE AND Verified 02/26/21 16:23 MOUTH SWELL secukinumab Allergy Unknown FACE AND Verified 02/26/21 16:23 MOUTH SWELL sorbitan esters Allergy Unknown FACE AND Verified 02/26/21 16:23 MOUTH SWELL varenicline AdvReac Unknown VEINS IN Verified 02/26/21 16:23 FEET BLEW Past Med/Surg History Medical History (Updated 02/26/21 @ 20:11 by Linda Mooney PA-C) Ankylosing spondylitis Chronic anemia Cirrhosis of liver Crohns disease Esophageal varices with banding GERD (gastroesophageal reflux disease) Hypertension Mitral valve prolapse ?pt states some providers say 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, 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 Peritonitis with abscess of intestine pt reports abscess drained in October [facility], treated and remains on abx Rheumatoid arthritis Surgical History History of abdominal paracentesis History of colonoscopy most recent 08/2018 [facility] History of esophagogastroduodenoscopy (EGD) History of right inguinal hernia repair had 1 umbilical hernia repair at same time History of tonsillectomy and adenoidectomy History of tooth extraction wisdom teeth History of umbilical hernia repair ruptured and repaired 07/2017 Family History Mother Family history of reaction to anesthesia "slow to wake up a couple different times" Father Lung cancer Social History Smoking Status: Current every day smoker Tobacco Type: Cigarettes Cigarettes Per Day: 10 per day; Second Hand Exposure: No; Hx Alcohol Use: No Hx Substance Use: No Preferred Language: Lithuanian Communication Ability: Effective 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 Beliefs That Will Affect Care: None Current Living Situation: Alone Current Living Situation Comment: lives in a trailer Feels Safe at Home: Yes Assistive Devices: Cane Review of Systems A total of 10 systems reviewed and were otherwise negative Physical Exam Vital Signs Vital Signs - 24 hr 02/26/21 13:52 02/26/21 14:43 02/26/21 14:57 Temperature 36.3 C L Temperature Source Temporal Artery Scan Pulse Rate 69 61 Pulse Rate [Apical] 68 Pulse Rhythm Pulse Rhythm [Apical] Pulse Strength Pulse Strength [Apical] Respiratory Rate 18 19 18 Respiratory Effort / Characteristics Respiratory Depth Respiratory Pattern Blood Pressure 95/40 L 100/61 Blood Pressure [Right Arm] 62/43 L Blood Pressure Mean 58 74 Blood Pressure Mean [Right Arm] 49 Blood Pressure Position Blood Pressure Position [Right Arm] Sitting Pulse Oximetry 100 Oxygen Delivery Method Room Air Sepsis Recent Fever Within 48 Hours No Sepsis New/Unexplained Change in Mental Status No Sepsis Action Taken by Nursing No Action Required 02/26/21 15:00 02/26/21 15:16 02/26/21 16:43 Temperature 36.7 C Temperature Source Oral Pulse Rate 73 60 66 Pulse Rate [Apical] Pulse Rhythm Pulse Rhythm [Apical] Pulse Strength Pulse Strength [Apical] Respiratory Rate 17 23 16 Respiratory Effort / Characteristics Respiratory Depth Respiratory Pattern Blood Pressure 102/52 L 100/39 L 113/38 L Blood Pressure [Right Arm] Blood Pressure Mean 68 59 63 Blood Pressure Mean [Right Arm] Blood Pressure Position Sitting Blood Pressure Position [Right Arm] Pulse Oximetry 100 Oxygen Delivery Method Sepsis Recent Fever Within 48 Hours Sepsis New/Unexplained Change in Mental Status Sepsis Action Taken by Nursing 02/26/21 16:53 02/26/21 17:00 02/26/21 17:20 Temperature 36.7 C Temperature Source Oral Pulse Rate 60 60 Pulse Rate [Apical] 63 Pulse Rhythm Regular Regular Pulse Rhythm [Apical] Regular Pulse Strength Normal Normal Pulse Strength [Apical] Normal Respiratory Rate 16 17 16 Respiratory Effort / Characteristics Non-Labored Spontaneous Respiratory Depth Normal Respiratory Pattern Regular Blood Pressure 93/46 L 113/57 L Blood Pressure [Right Arm] 100/36 L Blood Pressure Mean 61 75 Blood Pressure Mean [Right Arm] 57 Blood Pressure Position Semi-fowlers Semi-fowlers Blood Pressure Position [Right Arm] Semi-fowlers Pulse Oximetry 100 100 100 Oxygen Delivery Method Room Air Sepsis Recent Fever Within 48 Hours Sepsis New/Unexplained Change in Mental Status Sepsis Action Taken by Nursing See below Constitutional 60-year-old male, chronically ill in appearance. Cachectic. Eyes EOM intact bilaterally ENMT external ear and nose normal, oropharynx normal Neck trachea midline Respiratory normal respiratory effort, lungs clear to auscultation Cardiovascular Systolic murmur noted. Regular rate. Gastrointestinal (Abdomen) Ascites noted. Mild tenderness to palpation in the right upper quadrant without any guarding or rebound tenderness. Bowel sounds present in all 4 quadrants. External hemorrhoids noted. Good sphincter tone. Guaiac positive. Musculoskeletal +1 pitting edema noted in the lower extremities bilaterally. No erythema or warmth appreciated. Skin no rashes, warm and dry Neurologic Alert and oriented x3. No focal motor deficits. Psychiatric Acting appropriately Course Course Patient was seen and examined Vital signs including blood pressure were reviewed medications list was verified with patient Labs were obtained, and a saline lock was established An order was placed for continuous cardiac monitoring. The monitor shows a rate of 65 with normal sinus rhythm. Blood consent was performed The patient was ordered fluids and 2 units of packed RBCs. The case was discussed with my supervising physician who is in agreement with my plan The patient was reassessed and resting comfortably. We discussed his lab and CT results. He voiced understanding, and was in agreement for likely inpatient care. [facility] to [facility] the patient for likely admission Administered Medications Pantoprazole Sodium 40 mg/ (Dextrose) 100 mls @ 20 mls/hr IV Q5H KAILA Stop: 03/28/21 17:29 Last Admin: 02/26/21 18:52 Dose: 8 mg/hr, 20 mls/hr Documented by: [id number] Nicotine (Nicotine 14 Mg/24 Hr Patch) 14 mg TD QAM KAILA Stop: 03/28/21 17:14 Last Admin: 02/26/21 18:27 Dose: 14 mg Documented by: [id number] Discontinued Medications Sodium Chloride (Nss 1000ml) 500 mls @ 999 mls/hr IV .Q31M ONE Stop: 02/26/21 15:11 Last Infusion: 02/26/21 16:52 Dose: 0 mls/hr Documented by: [id number] Admin: 02/26/21 15:25 Dose: 999 mls/hr Documented by: [id number] Magnesium Sulfate/Dextrose (Magnesium Sulfate / D5w) 1 gm in 100 mls @ 100 mls/hr IV NOW STA Stop: 02/26/21 18:05 Last Infusion: 02/26/21 19:51 Dose: 0 mls/hr Documented by: [id number] Admin: 02/26/21 18:19 Dose: 100 mls/hr Documented by: [id number] Pantoprazole Sodium 80 mg/ (Dextrose) 120 mls @ 400 mls/hr IV NOW ONE Stop: 02/26/21 17:22 Last Infusion: 02/26/21 19:51 Dose: 0 mls/hr Documented by: [id number] Admin: 02/26/21 18:30 Dose: 400 mls/hr Documented by: [id number] Ioversol (Optiray 320 100ml) 94 ml IV ONCE ONE Stop: 02/26/21 16:14 Last Admin: 02/26/21 16:13 Dose: 94 ml Documented by: [id number] Medical Decision Making Medical Records Attestation: I reviewed the patient's medical records. Home Medications Current Medication List: was personally reviewed by mt Laboratory Data Attestation: I reviewed the patient's lab results. Result diagrams: 02/26/21 14:54 02/26/21 14:54 Lab Results 02/26/21 02/26/21 02/26/21 Range/Units 14:54 14:54 14:54 WBC 5.99 (4.8-10.8) K/uL RBC 3.33 L (4.7-6.1) M/uL Hgb 5.0 L* (14.0-18.0) g/dL POC Hgb (14.0-18.0) g/dl Hct 18.3 L* (42-52) % POC Hct (42-52) % MCV 55.0 L (80-100) fL MCH 15.0 L (25-34) pg MCHC 27.3 L (32-36) g/dL RDW Std Deviation 43.2 (36.4-46.3) fL RDW Coeff of Ronnie 21.8 H (11.5-14.5) % Plt Count 95 L (130-400) K/uL Immature Gran % (Auto) 0.2 % Neut % (Auto) 73.5 % Lymph % (Auto) 19.0 % [place] % (Auto) 5.0 % Eos % (Auto) 2.0 % Baso % (Auto) 0.3 % Neut # (Auto) 4.40 (1.4-6.5) K/uL Lymph # (Auto) 1.14 L (1.2-3.4) K/uL [place] # (Auto) 0.30 (0.11-0.59) K/uL Eos # (Auto) 0.12 (0-0.5) K/uL Baso # (Auto) 0.02 (0-0.2) K/uL Immature Gran # (Auto) 0.01 (0.00-0.02) K/uL Platelet Estimate Decreased L (Normal) Hypochromasia Present Poikilocytosis Present Microcytosis Present Tear Drop Cells Occasional Ovalocytes 1+ PT 14.4 H (9.0-12.0) Seconds INR 1.5 H (0.9-1.1) POC Sodium (135-144) mmol/L Sodium (136-145) mmol/L POC Potassium (3.3-5.0) mmol/L Potassium (3.5-5.1) mmol/L POC Chloride (101-112) mmol/L Chloride (98-107) mmol/L Carbon Dioxide (21-32) mmol/L POC Total CO2 (24-31) mmol/L Anion Gap (3-11) POC Anion Gap (16-25) mmol/L POC BUN (7-18) mg/dl BUN (7-18) mg/dl Creatinine (0.6-1.4) mg/dl POC Creatinine (0.6-1.3) mg/dl Est Cr Clr Drug Dosing Est GFR ( Amer) ml/min Est GFR (Non-Af Amer) ml/min BUN/Creatinine Ratio (10-20) Glucose (70-99) mg/dl POC Glucose (other) (70-99) mg/dl Calcium (8.5-10.1) mg/dl POC Ioniz Calcium Tavares (1.12-1.32) mmol/l Magnesium (1.8-2.4) mg/dl Total Bilirubin (0.2-1) mg/dl AST (15-37) U/L ALT (12-78) U/L Alkaline Phosphatase (45-117) U/L Troponin I (0-0.045) ng/ml Total Protein (6.4-8.2) gm/dl Albumin (3.4-5.0) gm/dl Globulin (2.5-4.0) gm/dl Albumin/Globulin Ratio (0.9-2) Urine Color Urine Appearance (Clear) Urine pH (4.5-7.5) Ur Specific [place] (1.000-1.030) Urine Protein (Negative) Urine Glucose (UA) (Negative) Urine Ketones (Negative) Urine Blood (Negative) Urine Nitrite (Negative) Urine Bilirubin (Negative) Urine Urobilinogen (Negative) Ur Leukocyte Esterase (Negative) COVID-19 Eval Order SARS-CoV-2 (PCR) (Negative) Blood Type O Positive Antibody Screen NEGATIVE Crossmatch See Detail 02/26/21 02/26/21 02/26/21 Range/Units 14:54 15:02 15:38 WBC (4.8-10.8) K/uL RBC (4.7-6.1) M/uL Hgb (14.0-18.0) g/dL POC Hgb 6.5 L* (14.0-18.0) g/dl Hct (42-52) % POC Hct 19 L* (42-52) % MCV (80-100) fL MCH (25-34) pg MCHC (32-36) g/dL RDW Std Deviation (36.4-46.3) fL RDW Coeff of Ronnie (11.5-14.5) % Plt Count (130-400) K/uL Immature Gran % (Auto) % Neut % (Auto) % Lymph % (Auto) % [place] % (Auto) % Eos % (Auto) % Baso % (Auto) % Neut # (Auto) (1.4-6.5) K/uL Lymph # (Auto) (1.2-3.4) K/uL [place] # (Auto) (0.11-0.59) K/uL Eos # (Auto) (0-0.5) K/uL Baso # (Auto) (0-0.2) K/uL Immature Gran # (Auto) (0.00-0.02) K/uL Platelet Estimate (Normal) Hypochromasia Poikilocytosis Microcytosis Tear Drop Cells Ovalocytes PT (9.0-12.0) Seconds INR (0.9-1.1) POC Sodium 135 (135-144) mmol/L Sodium 136 (136-145) mmol/L POC Potassium 4.2 (3.3-5.0) mmol/L Potassium 4.1 (3.5-5.1) mmol/L POC Chloride 103 (101-112) mmol/L Chloride 109 H (98-107) mmol/L Carbon Dioxide 22 (21-32) mmol/L POC Total CO2 20 L (24-31) mmol/L Anion Gap 6.0 (3-11) POC Anion Gap 17.0 (16-25) mmol/L POC BUN 19 H (7-18) mg/dl BUN 19 H (7-18) mg/dl Creatinine 1.04 (0.6-1.4) mg/dl POC Creatinine 1.0 (0.6-1.3) mg/dl Est Cr Clr Drug Dosing Not Reportable Est GFR ( Amer) 91.3 ml/min Est GFR (Non-Af Amer) 78.8 ml/min BUN/Creatinine Ratio 17.8 (10-20) Glucose 90 (70-99) mg/dl POC Glucose (other) 90 (70-99) mg/dl Calcium 7.4 L (8.5-10.1) mg/dl POC Ioniz Calcium Tavares 1.13 (1.12-1.32) mmol/l Magnesium 1.6 L (1.8-2.4) mg/dl Total Bilirubin 0.9 (0.2-1) mg/dl AST 17 (15-37) U/L ALT 24 (12-78) U/L Alkaline Phosphatase 51 (45-117) U/L Troponin I < 0.015 (0-0.045) ng/ml Total Protein 5.6 L (6.4-8.2) gm/dl Albumin 2.2 L (3.4-5.0) gm/dl Globulin 3.4 (2.5-4.0) gm/dl Albumin/Globulin Ratio 0.6 L (0.9-2) Urine Color Urine Appearance (Clear) Urine pH (4.5-7.5) Ur Specific [place] (1.000-1.030) Urine Protein (Negative) Urine Glucose (UA) (Negative) Urine Ketones (Negative) Urine Blood (Negative) Urine Nitrite (Negative) Urine Bilirubin (Negative) Urine Urobilinogen (Negative) Ur Leukocyte Esterase (Negative) COVID-19 Eval Order Covid19 at [facility] SARS-CoV-2 (PCR) (Negative) Blood Type Antibody Screen Crossmatch 02/26/21 02/26/21 Range/Units 15:38 15:57 WBC (4.8-10.8) K/uL RBC (4.7-6.1) M/uL Hgb (14.0-18.0) g/dL POC Hgb (14.0-18.0) g/dl Hct (42-52) % POC Hct (42-52) % MCV (80-100) fL MCH (25-34) pg MCHC (32-36) g/dL RDW Std Deviation (36.4-46.3) fL RDW Coeff of Ronnie (11.5-14.5) % Plt Count (130-400) K/uL Immature Gran % (Auto) % Neut % (Auto) % Lymph % (Auto) % [place] % (Auto) % Eos % (Auto) % Baso % (Auto) % Neut # (Auto) (1.4-6.5) K/uL Lymph # (Auto) (1.2-3.4) K/uL [place] # (Auto) (0.11-0.59) K/uL Eos # (Auto) (0-0.5) K/uL Baso # (Auto) (0-0.2) K/uL Immature Gran # (Auto) (0.00-0.02) K/uL Platelet Estimate (Normal) Hypochromasia Poikilocytosis Microcytosis Tear Drop Cells Ovalocytes PT (9.0-12.0) Seconds INR (0.9-1.1) POC Sodium (135-144) mmol/L Sodium (136-145) mmol/L POC Potassium (3.3-5.0) mmol/L Potassium (3.5-5.1) mmol/L POC Chloride (101-112) mmol/L Chloride (98-107) mmol/L Carbon Dioxide (21-32) mmol/L POC Total CO2 (24-31) mmol/L Anion Gap (3-11) POC Anion Gap (16-25) mmol/L POC BUN (7-18) mg/dl BUN (7-18) mg/dl Creatinine (0.6-1.4) mg/dl POC Creatinine (0.6-1.3) mg/dl Est Cr Clr Drug Dosing Est GFR ( Amer) ml/min Est GFR (Non-Af Amer) ml/min BUN/Creatinine Ratio (10-20) Glucose (70-99) mg/dl POC Glucose (other) (70-99) mg/dl Calcium (8.5-10.1) mg/dl POC Ioniz Calcium Tavares (1.12-1.32) mmol/l Magnesium (1.8-2.4) mg/dl Total Bilirubin (0.2-1) mg/dl AST (15-37) U/L ALT (12-78) U/L Alkaline Phosphatase (45-117) U/L Troponin I (0-0.045) ng/ml Total Protein (6.4-8.2) gm/dl Albumin (3.4-5.0) gm/dl Globulin (2.5-4.0) gm/dl Albumin/Globulin Ratio (0.9-2) Urine Color Yellow Urine Appearance Clear (Clear) Urine pH 6.5 (4.5-7.5) Ur Specific [place] 1.008 (1.000-1.030) Urine Protein Negative (Negative) Urine Glucose (UA) Negative (Negative) Urine Ketones Negative (Negative) Urine Blood Negative (Negative) Urine Nitrite Negative (Negative) Urine Bilirubin Negative (Negative) Urine Urobilinogen Negative (Negative) Ur Leukocyte Esterase Negative (Negative) COVID-19 Eval Order SARS-CoV-2 (PCR) NEGATIVE (Negative) Blood Type Antibody Screen Crossmatch Imaging Data Attestation: I personally reviewed and interpreted this imaging study as follows: Radiologist's Impression: Abdomen/Pelvis CT 02/26/21 14:41 CT abd pelvis IV con only CLINICAL INDICATION: [place] ^CTR B3 ^low h and h. TECHNIQUE: Helical axial images of the abdomen and pelvis were obtained and displayed at 5 and 1 mm intervals. Automated dose lowering techniques and/or adjustment according to patient size were utilized for this exam. This exam was performed with intravenous contrast. COMPARISON: Comparison is made to CT abdomen pelvis 09/05/2019 FINDINGS: Lower chest: No acute abnormality Liver: Liver is cirrhotic. Gallbladder and biliary tree: No calcified gallstones. Normal caliber wall. No intra- or extrahepatic biliary ductal dilation. Pancreas: Unremarkable, no focal lesions. Spleen: Splenule is incidentally noted. Adrenals: Unremarkable. Kidneys and ureters: Unremarkable. Bladder: Unremarkable. Reproductive organs: Unremarkable. Bowel: Distention of the small bowel is seen measuring up to 36 mm with multiple air-fluid levels seen. There is wall thickening of the small bowel most prom inent in the ventral hernia. No proximal transition point is seen, a distal transition point is suggested within the ventral hernia. Lymph nodes Retroperitoneal: Unremarkable. Mesenteric: Unremarkable. Pelvic: Unremarkable. Peritoneum: Moderate ascites is seen. Vessels: Atherosclerotic calcifications are seen. Variceal formation is again noted. Abdominal wall: A large ventral hernia is seen containing multiple loops of bowel. Bones: Degenerative changes in the visualized spine. IMPRESSION: 1. Small bowel obstruction is seen with multiple dilated loops of small bowel. Wall thickening is noted within the ventral hernia but there is no evidence of pneumatosis or free air. 2. No evidence of significant intraperitoneal hemorrhage. 3. Cirrhosis with ascites and formation of varices, similar in appearance to prior exam. 4. Osseous findings suggestive of ankylosing spondylitis. ACT 112: Negative or not required by law. Electronically signed by: Tomas Nesbitt M.D. 02/26/2021 4:33 PM Chest X-Ray 02/26/21 14:44 SINGLE VIEW CHEST CLINICAL HISTORY: Anemia. FINDINGS: 2 AP, portable, upright chest radiographs are compared to study dated 09/05/2019. The patient's head obscures the apices. The heart is top normal for projection. The pulmonary vasculature is noncongested. Chronic interstitial thickening is similar to previous. Mild scarring/atelectasis is noted at the lung bases. No airspace consolidation or large pleural effusion is identified. No pneumothorax is seen. The skeletal structures are osteopenic. The bony thorax is grossly intact. IMPRESSION: No acute cardiopulmonary abnormality. ACT 112: Negative or not required by law. Electronically signed by: Herson Alvarez M.D. 02/26/2021 3:31 PM ECG Data Attestation: I personally reviewed and interpreted this ECG as follows: Additional Comments: EKG shows normal sinus rhythm with a rate of 65 bpm. QTc 409 MS. Q waves noted in the anterior leads.No change when compared to prior EKG from 2019. Blood Pressure Blood Pressure Findings: Low blood pressure MDM Narrative Differential diagnosis: Anemia, acute GI bleeding, malnutrition, acute NV, cardiac ischemia, among others were considered This patient is a 60-year-old male who presents the emergency department with abnormal lab results from his PCP earlier this morning. The patient reportedly had blood drawn and was found to have a hemoglobin of 5. He was immediately contacted and sent here for evaluation. The patient was slightly hypotensive. Heart rate was appropriate. The patient has a history of Crohn's. He denies any recent black or bloody stools. He denied any vomiting. He is not on any anticoagulation. On exam, he had mild tenderness in the right upper quadrant of his abdomen. He appeared slightly dehydrated. Significant ascites was noted. He was guaiac positive. The patient's blood work in the emergency department confirm a hemoglobin of 5. INR is also slightly elevated at 1.5. Imaging was performed and consistent with a possible small bowel obstruction. The patient did not have any nausea or vomiting. He reports having some diarrhea. The patient was transfused 2 units in the emergency department. He remained stable awaiting hospitalist evaluation. He will likely be admitted for further work-up and treatment. I have personally spent greater than 30 minutes of critical care time in the direct management of this patient. This includes bedside care, interpretation of diagnostic studies, and testing, discussion with consultants, patient, and family members, and other required patient management activities. This 30 minutes is in excess of all separately billable procedures. Impression & Plan Anemia, SBO (small bowel obstruction), Acute GI bleeding Discharge Plan Visit Data Chief Complaint: Abnormal Labs/Diagnostic Testing Stated Complaint: HEMOGLOBIN IS AT 5 ED Provider: Nakul Fonseca ED Midlevel Provider: Linda Mooney Discharge Problem: Anemia, SBO (small bowel obstruction), Acute GI bleeding Patient Disposition: Admitted As Inpatient Condition: Serious
[2021-02-26] MEDS ORDERED: OPTIRAY 320 100ml IV ONE (16:13)
[2021-02-26 16:15] LABS: Appearance Urine Clear (Clear); Bilirubin Urine Negative (Negative); Blood Urine Negative (Negative); Color Urine Yellow; Glucose Urine UA Negative (Negative); Ketones Urine Negative (Negative); Leukocyte Esterase Urine Negative (Negative); Nitrite Urine Negative (Negative); Protein Urine Negative (Negative); Specific Gravity Urine 1.008 (1.000-1.030); Urobilinogen Urine Negative (Negative); pH Urine 6.5 (4.5-7.5)
[2021-02-26 16:33] LABS: Basophils # (auto) 0.02 K/uL (0-0.2); Basophils % (auto) 0.3 %; Eosinophils # (auto) 0.12 K/uL (0-0.5); Hypochromasia Present; Immature Granulocytes # (auto) 0.01 K/uL (0.00-0.02); Immature Granulocytes % (auto) 0.2 %; Lymphocytes # (auto) 1.14 K/uL (1.2-3.4); Microcytosis Present; Neutrophils % (auto) 73.5 %; Ovalocytes 1+; Platelet Estimate Decreased (Normal); Poikilocytosis Present; Tear Drop Cells Occasional
--- NOTE | 2021-02-26 16:34 | CT Scan Report ---
CT abd pelvis IV con only CLINICAL INDICATION: [place] ^CTR B3 ^low h and h. TECHNIQUE: Helical axial images of the abdomen and pelvis were obtained and displayed at 5 and 1 mm i ntervals. Automated dose lowering techniques and/or adjustment according to patient size were utilize d for this exam. This exam was performed with intravenous contrast. COMPARISON: Comparison is made to CT abdomen pelvis 09/05/2019 FINDINGS: Lower chest: No acute abnormality Liver: Liver is cirrhotic. Gallbladder and biliary tree: No calcified gallstones. Normal caliber wall. No intra- or extrahepatic biliary ductal dilation. Pancreas: Unremarkable, no focal lesions. Spleen: Splenule is incidentally noted. Adrenals: Unremarkable. Kidneys and ureters: Unremarkable. Bladder: Unremarkable. Reproductive organs: Unremarkable. Bowel: Distention of the small bowel is seen measuring up to 36 mm with multiple air-fluid levels see n. There is wall thickening of the small bowel most prominent in the ventral hernia. No proximal che sition point is seen, a distal transition point is suggested within the ventral hernia. Lymph nodes Retroperitoneal: Unremarkable. Mesenteric: Unremarkable. Pelvic: Unremarkable. Peritoneum: Moderate ascites is seen. Vessels: Atherosclerotic calcifications are seen. Variceal formation is again noted. Abdominal wall: A large ventral hernia is seen containing multiple loops of bowel. Bones: Degenerative changes in the visualized spine. IMPRESSION: 1. Small bowel obstruction is seen with multiple dilated loops of small bowel. Wall thickening is no anna marie within the ventral hernia but there is no evidence of pneumatosis or free air. 2. No evidence of significant intraperitoneal hemorrhage. 3. Cirrhosis with ascites and formation of varices, similar in appearance to prior exam. 4. Osseous findings suggestive of ankylosing spondylitis. ACT 112: Negative or not required by law. Electronically signed by: Tomas Nesbitt M.D. 02/26/2021 4:33 PM
[2021-02-26] MEDS ORDERED: PANTOPRAZOLE BOLUS/DRIP 1 EA IV STA (17:05)
[2021-02-26] MEDS ORDERED: PANTOprazole 80 MG in DEXTROSE 5% 100 ML IV ONE (17:05)
[2021-02-26] MEDS ORDERED: MAGNESIUM SULFATE / D5W 1 GM/100 ML BAG IV STA (17:06)
[2021-02-26] MEDS ORDERED: MAGNESIUM SULFATE / D5W 1 GM/100 ML BAG IV ONE (17:30)
[2021-02-26] MEDS ORDERED: SODIUM CHLORIDE 0.9% 1000ML 1,000 ML IV SCH (17:45)
--- NOTE | 2021-02-26 18:00 | History & Physical Report ---
Date of Service February 26, 2021 Assessment & Plan (1) Upper GI bleeding: (2) Esophageal varices: (3) Anemia: Plan: -Admit to [facility] with telemetry -Patient presenting by referral PCPs office for evaluation of anemia -Hgb 5.0, Hemoccult positive in ED -History of cirrhosis with grade 1 esophageal varices (per EGD 08/2019) -Hemodynamically stable -Type and cross 2 unit PRBC in the ED, currently infusing -Start PPI and octreotide drip given history of varices -N.p.o. -GI consult (4) SBO (small bowel obstruction): Plan: -CT ABD/pelvis shows signs of SBO -Patient mostly asymptomatic -reporting diarrhea x 2 days -Underlying Crohn's and chronic narcotic use likely contributing -General surgery consult (5) Cirrhosis of liver: Plan: -History of cirrhosis with esophageal varices and ascites -Continue home diuretics (6) Crohns disease: Plan: -Currently not on medication (7) Ankylosing spondylitis: Plan: -Continue home chronic pain medications (8) DVT prophylaxis: Plan: -SCDs due to anemia /GI bleeding History of Present Illness Chief Complaint: Sent by PCP for low blood count Primary Care Provider: Howard Black DO 60-year-old male with PMH cirrhosis with esophageal varices and ascites, chronic iron deficiency anemia, GERD, Crohn's disease, and other problems listed below who presents to the ED by referral of PCP for anemia. Patient reports he was at routine PCP visit today. Had labs drawn that showed a hemoglobin 5.0. Patient reports having some diarrhea the past couple of days. Denies bright red bleeding per rectum and dark tarry stools. No other symptoms reported, patient reports he has been feeling well. Denies abdominal pain, nausea, vomiting. Does have some mildly increased abdominal distention. Denies chest pain or shortness of breath. No lightheadedness, dizziness, diaphoresis, syncopal events. Denies fevers and chills. No urinary symptoms. In the ED, labs show Hgb 5.0. MG +1.6. CT ABD/pelvis shows SBO. Patient was given magnesium replacement and Protonix bolus and drip. He was also typed and crossed for 2 units of blood which is currently infusing. Allergies Allergy/AdvReac Type Severity Reaction Status Date / Time adalimumab Allergy Severe RASH Verified 02/26/21 16:23 etanercept Allergy Severe RASH Verified 02/26/21 16:23 shellfish derived Allergy Severe Anaphylaxis Verified 02/26/21 16:23 tromethamine Allergy Severe RASH Verified 02/26/21 16:23 Penicillins Allergy Intermediate PASSED OUT Verified 02/26/21 16:23 bee venom protein (honey bee) Allergy Unknown PASSED OUT Verified 02/26/21 16:23 benzyl alcohol Allergy Unknown RASH Verified 02/26/21 16:23 mouse protein Allergy Unknown FACE AND Verified 02/26/21 16:23 MOUTH SWELL secukinumab Allergy Unknown FACE AND Verified 02/26/21 16:23 MOUTH SWELL sorbitan esters Allergy Unknown FACE AND Verified 02/26/21 16:23 MOUTH SWELL varenicline AdvReac Unknown VEINS IN Verified 02/26/21 16:23 FEET BLEW Home Medications Medication Instructions Recorded Confirmed Type atenolol 25 mg tablet 25 mg PO QAM 03/16/18 02/26/21 History oxycodone 5 mg tablet 7.5 mg PO QID PRN 03/16/18 02/26/21 History pantoprazole 40 mg tablet,delayed 40 mg PO QAM 03/16/18 02/26/21 History release Saccharomyces boulardii 250 mg 250 mg PO DAILY 12/07/18 02/26/21 History capsule (Florastor) ciprofloxacin HCl 500 mg tablet 500 mg PO QAM 09/05/19 02/26/21 History furosemide 20 mg tablet 20 mg PO QAM 09/05/19 02/26/21 History thiamine HCl (vitamin B1) 100 mg 100 mg PO QAM 09/05/19 02/26/21 History tablet (Vitamin B-1) folic acid 1 mg tablet 1 mg PO DAILY 02/26/21 02/26/21 History spironolactone 50 mg tablet 100 mg PO DAILY 02/26/21 02/26/21 History Past Med/Surg History Medical History (Updated 02/26/21 @ 18:06 by EV Albert) Ankylosing spondylitis Chronic anemia Cirrhosis of liver Crohns disease Esophageal varices with banding GERD (gastroesophageal reflux disease) Hypertension Mitral valve prolapse ?pt states some providers say he does, 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 Peritonitis with abscess of intestine pt reports abscess drained in October [facility], treated and remains on abx Rheumatoid arthritis Surgical History History of abdominal paracentesis History of colonoscopy most recent 08/2018 [facility] History of esophagogastroduodenoscopy (EGD) History of right inguinal hernia repair had 1 umbilical hernia repair at same time History of tonsillectomy and adenoidectomy History of tooth extraction wisdom teeth History of umbilical hernia repair ruptured and repaired 07/2017 Family History Mother Family history of reaction to anesthesia "slow to wake up a couple different times" Father Lung cancer Social History Smoking Status: Current every day smoker Tobacco Type: Cigarettes Cigarettes Per Day: 10 per day; Second Hand Exposure: No; Hx Alcohol Use: No Hx Substance Use: No Preferred Language: Italian Communication Ability: Effective Immigration Judge Required: No Beliefs That Will Affect Care: None Current Living Situation: Alone Current Living Situation Comment: lives in a trailer Feels Safe at Home: Yes Assistive Devices: Cane Review of Systems Review of Systems: ROS per HPI, all other systems reviewed and negative Physical Exam Physical Exam: please refer to Dr. Swartz's addendum for physical exam. Results & Data Results & Data ([facility]) Vital Signs (Past 12 Hours) Vital Signs Temp Pulse Pulse Resp BP BP Pulse Ox 02/26/21 17:45 75 18 87/50 L 100 02/26/21 17:20 60 16 113/57 L 100 02/26/21 17:00 60 17 93/46 L 100 02/26/21 16:53 36.7 C 63 16 100/36 L 100 02/26/21 16:43 36.7 C 66 16 113/38 L 100 02/26/21 15:16 60 23 100/39 L 02/26/21 15:00 73 17 102/52 L 02/26/21 14:57 61 18 100/61 02/26/21 14:43 68 19 62/43 L 02/26/21 13:52 36.3 C L 69 18 95/40 L 100 Laboratory Results Short CBC 02/26/21 Range/Units 14:54 WBC 5.99 (4.8-10.8) K/uL Hgb 5.0 L* (14.0-18.0) g/dL Hct 18.3 L* (42-52) % Plt Count 95 L (130-400) K/uL BMP 02/26/21 14:54 Sodium 136 Potassium 4.1 Chloride 109 H Carbon Dioxide 22 BUN 19 H Creatinine 1.04 Glucose 90 Calcium 7.4 L Cardiac Enzymes 02/26/21 Range/Units 14:54 Troponin I < 0.015 (0-0.045) ng/ml Liver Function 02/26/21 Range/Units 14:54 Total Bilirubin 0.9 (0.2-1) mg/dl AST 17 (15-37) U/L ALT 24 (12-78) U/L Alkaline Phosphatase 51 (45-117) U/L Albumin 2.2 L (3.4-5.0) gm/dl Urine 02/26/21 Range/Units 15:57 Urine Color Yellow Urine Appearance Clear (Clear) Urine pH 6.5 (4.5-7.5) Ur Specific [place] 1.008 (1.000-1.030) Urine Protein Negative (Negative) Urine Glucose (UA) Negative (Negative) Diagnostic Findings Abdomen/Pelvis CT 02/26/21 14:41 CT abd pelvis IV con only CLINICAL INDICATION: MN ^CTR B3 ^low h and h. TECHNIQUE: Helical axial images of the abdomen and pelvis were obtained and displayed at 5 and 1 mm intervals. Automated dose lowering techniques and/or adjustment according to patient size were utilized for this exam. This exam was performed with intravenous contrast. COMPARISON: Comparison is made to CT abdomen pelvis 09/05/2019 FINDINGS: Lower chest: No acute abnormality Liver: Liver is cirrhotic. Gallbladder and biliary tree: No calcified gallstones. Normal caliber wall. No intra- or extrahepatic biliary ductal dilation. Pancreas: Unremarkable, no focal lesions. Spleen: Splenule is incidentally noted. Adrenals: Unremarkable. Kidneys and ureters: Unremarkable. Bladder: Unremarkable. Reproductive organs: Unremarkable. Bowel: Distention of the small bowel is seen measuring up to 36 mm with multiple air-fluid levels seen. There is wall thickening of the small bowel most prominent in the ventral hernia. No proximal transition point is seen, a distal transition point is suggested within the ventral hernia. Lymph nodes Retroperitoneal: Unremarkable. Mesenteric: Unremarkable. Pelvic: Unremarkable. Peritoneum: Moderate ascites is seen. Vessels: Atherosclerotic calcifications are seen. Variceal formation is again noted. Abdominal wall: A large ventral hernia is seen containing multiple loops of bowel. Bones: Degenerative changes in the visualized spine. IMPRESSION: 1. Small bowel obstruction is seen with multiple dilated loops of small bowel. Wall thickening is noted within the ventral hernia but there is no evidence of pneumatosis or free air. 2. No evidence of significant intraperitoneal hemorrhage. 3. Cirrhosis with ascites and formation of varices, similar in appearance to prior exam. 4. Osseous findings suggestive of ankylosing spondylitis. ACT 112: Negative or not required by law. Electronically signed by: Tomas Nesbitt M.D. 02/26/2021 4:33 PM Chest X-Ray 02/26/21 14:44 SINGLE VIEW CHEST CLINICAL HISTORY: Anemia. FINDINGS: 2 AP, portable, upright chest radiographs are compared to study dated 09/05/2019. The patient's head obscures the apices. The heart is top normal for projection. The pulmonary vasculature is noncongested. Chronic interstitial thickening is similar to previous. Mild scarring/atelectasis is noted at the lung bases. No airspace consolidation or large pleural effusion is identified. No pneumothorax is seen. The skeletal structures are osteopenic. The bony thorax is grossly intact. IMPRESSION: No acute cardiopulmonary abnormality. ACT 112: Negative or not required by law. Electronically signed by: Herson Alvarez M.D. 02/26/2021 3:31 PM Code Status & VTE Plan Code Status Patient is a DNR as per Dr. Swartz's discussion with him. VTE Prophylaxis Plan VTE Prophylaxis will be ordered: Yes Supervising Physician Co-Signing Physician Notes 60-year-old man with history of hypertension, alcoholic cirrhosis, Crohn's disease, chronic anemia with baseline hemoglobin of 8-9, ankylosing spondylitis, past alcohol use, ongoing tobacco use who presents from PCPs office where he went for regular follow-up and for management of his pain. Lab work was drawn which showed hemoglobin of 5.5 and patient was referred to the ER. Patient currently only complains of some mild abdominal distention, slightly more than usual and generalized body tenderness which she reported is due to his spondylitis. He also reported diarrhea for the past 2 days. Physical exam notable for chronically ill looking severely malnourished man with muscle wasting and bony prominences, pale conjunctiva, abdominal distention, soft, nontender, bilateral leg edema with stasis changes. General: Severely malnourished (muscle wasting, bony prominences), chronically ill looking Eyes: PERRL, pale conjunctiva, EOM intact bilaterally ENMT: External ear and nose normal, oropharynx normal Respiratory: Normal respiratory effort, no respiratory distress, lungs clear to auscultation, no crackles and no wheezes Cardiovascular: Pulse is RRR. S1 S2 Gastrointestinal (Abdomen): Abdomen is distended, soft, non-tender to palpation, no guarding +l bowel sounds Musculoskeletal: + bilateral leg edema with chronic stasis skin changes Neurologic: Alert and oriented x 3, No focal weakness, sensation grossly intact Psychiatric: Alert and oriented x 3, euthymic affect, no depressed affect Labs notable for hemoglobin of 5, MCV of 55, platelet of 95, INR of 1.[address] reports SBO multiple dilated bowels, cirrhosis with ascites. -Microcytic anemia, acute on chronic -SBO -Severe malnutrition Based on patient's history of cirrhosis, varices, anemia is likely from GI loss +/-poor intake. Stool Hemoccult done in ER was reported to be positive Currently on PPI. Start octreotide drip N.p.o. for now GI consult for evaluation Getting a unit of blood. We will get a second unit of blood. Though i do not expect patient needs surgical procedure, will get surgery on board in view of SBO Get c diff test for reported diarrhea Agree with other plans as detailed by Alexandra CARRENO
[2021-02-26] MEDS: NICOTINE 14 MG/24 HR PATCH TD SCH (18:27)
[2021-02-26] MEDS: PANTOprazole 40 MG in DEXTROSE 5% 100 ML IV SCH ×2 (18:52→23:20)
[2021-02-26] MEDS ORDERED: ACETAMINOPHEN 325 MG TAB PO PRN (20:03)
[2021-02-26] MEDS: OCTREOTIDE ACETATE 500 MCG in 0.9 % SODIUM CHLORIDE 100 ML IV SCH (20:52)
[2021-02-26] MEDS: oxyCODONE HCL IR 5 MG TAB (IMMEDIATE RELEASE) PO PRN (20:53)
--- NOTE | 2021-02-26 21:37 | Surgery Consultation ---
Date of Consultation February 26, 2021 Assessment & Plan (1) SBO (small bowel obstruction): Patient has been admitted by the hospital service: Patient's most pressing issue appears to be GI bleed. Medical service favors a GI bleed as a cause of this problem and they have initiated treatment with transfusion of packed red blood cells along with an octreotide and Protonix drip. Gastroenterology consultation has been requested and is pending. Concerning the patient's noted small bowel obstruction the patient is relatively asymptomatic. He does have some minor abdominal pain at the present time but he has not had any nausea vomiting. Due to the patient's underlying medical comorbidities we would be hesitant to operate on this person. I would also be hesitant to place an NG tube in this patient as he likely has esophageal varices due to an underlying history of liver cirrhosis. We will continue to follow along with the patient clinically at this time as he appears to be stable. There is no over the mention that at the time of my interview he was not hypotensive or tachycardic. He is also afebrile and has a normal white blood cell count. We will continue following with the patient is hospitalized. History of Present Illness Reason for Consultation: Small bowel obstruction Attending Physician: Vidya Swartz MD History of Present Illness This is a 60-year-old male who was admitted to the hospital service. The patient presented to the emergency department at the referral of his primary care physician secondary to anemia. Patient notes that he was having routine blood work checked by his PCP today where he was noted to have marked anemia and he was therefore sent to the emergency department for further evaluation. Patient does report a history of Crohn's disease which he reports was diagnosed approximately 8 years ago. Patient says that he does not currently take any medications for this condition. He says he has had multiple upper and lower endoscopies. With his current presentation he denies any lightheadedness or dizziness. He denies any chest pain or shortness of breath. He denies any fevers, shakes, chills. Patient says that he has not had any nausea or vomiting. He denies any melena, bright blood per rectum, hematochezia, or hematemesis. Patient says he has had prior abdominal surgeries include an inguinal herniorrhaphy and a umbilical herniorrhaphy. With his current presentation the patient initially denied any abdominal pain but he does note at the time of my interview some mild abdominal discomfort in the midline without radiation that is most pronounced with palpation. Patient did require admission to [facility] in August 2019. At that time he was noted to have a small bowel obstruction but this was treated successfully in a conservative manner. Patient notes that for his gastroenterology needs he is followed locally by Dr. Anuja Jaimes of [facility] gastro[facility]ology. In the emergency department the patient did have labs and imaging which I independently reviewed. He did have a CT scan of the abdomen that showed concern for a small bowel obstruction. Patient was noted to have distention of the small bowel measuring up to 36 mm with some air-fluid levels. No discrete proximal transition point was noted but a distal transition point was suggested within a noted ventral hernia. There is no evidence of free air or pneumatosis. No evidence of intraperitoneal hemorrhage. Patient did have findings consiste nt with cirrhosis and ascites along with the formation of varices.Labs include a CBC where his white blood cell count was noted to be normal. His hemoglobin and hematocrit were both low at 5.0 and 18.3 respectively. His platelet count was low at 95,000. Coagulation studies showed an INR of 1.5. A chemistry profile showed sodium and potassium were normal. Patient's BUN and creatinine were note d to be 19 and 1.0. There is no significant elevation of patient's LFTs. Urinalysis was not indicative of infection. A Covid test was performed and was noted to be negative. Patient also had a chest x-ray that was negative for pneumonia. At the time of my interview the patient is resting comfortably in bed he was in no distress. Allergies Allergy/AdvReac Type Severity Reaction Status Date / Time adalimumab Allergy Severe RASH Verified 02/26/21 16:23 etanercept Allergy Severe RASH Verified 02/26/21 16:23 shellfish derived Allergy Severe Anaphylaxis Verified 02/26/21 16:23 tromethamine Allergy Severe RASH Verified 02/26/21 16:23 Penicillins Allergy Intermediate PASSED OUT Verified 02/26/21 16:23 bee venom protein (honey bee) Allergy Unknown PASSED OUT Verified 02/26/21 16:23 benzyl alcohol Allergy Unknown RASH Verified 02/26/21 16:23 mouse protein Allergy Unknown FACE AND Verified 02/26/21 16:23 MOUTH SWELL secukinumab Allergy Unknown FACE AND Verified 02/26/21 16:23 MOUTH SWELL sorbitan esters Allergy Unknown FACE AND Verified 02/26/21 16:23 MOUTH SWELL varenicline AdvReac Unknown VEINS IN Verified 02/26/21 16:23 FEET BLEW Home Medications Medication Instructions Recorded Confirmed Type atenolol 25 mg tablet 25 mg PO QAM 03/16/18 02/26/21 History oxycodone 5 mg tablet 7.5 mg PO QID PRN 03/16/18 02/26/21 History pantoprazole 40 mg tablet,delayed 40 mg PO QAM 03/16/18 02/26/21 History release Saccharomyces boulardii 250 mg 250 mg PO DAILY 12/07/18 02/26/21 History capsule (Florastor) ciprofloxacin HCl 500 mg tablet 500 mg PO QAM 09/05/19 02/26/21 History furosemide 20 mg tablet 20 mg PO QAM 09/05/19 02/26/21 History thiamine HCl (vitamin B1) 100 mg 100 mg PO QAM 09/05/19 02/26/21 History tablet (Vitamin B-1) folic acid 1 mg tablet 1 mg PO DAILY 02/26/21 02/26/21 History spironolactone 50 mg tablet 100 mg PO DAILY 02/26/21 02/26/21 History Patient History Medical History (Updated 02/26/21 @ 20:11 by Linda Mooney PA-C) Ankylosing spondylitis Chronic anemia Cirrhosis of liver Crohns disease Esophageal varices with banding GERD (gastroesophageal reflux disease) Hypertension Mitral valve prolapse ?pt states some providers say he 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, 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 Peritonitis with abscess of intestine pt reports abscess drained in October [facility], treated and remains on abx Rheumatoid arthritis Surgical History History of abdominal paracentesis History of colonoscopy most recent 08/2018 [facility] History of esophagogastroduodenoscopy (EGD) History of right inguinal hernia repair had 1 umbilical hernia repair at same time History of tonsillectomy and adenoidectomy History of tooth extraction wisdom teeth History of umbilical hernia repair ruptured and repaired 07/2017 Family History Mother Family history of reaction to anesthesia "slow to wake up a couple different times" Father Lung cancer Social History Smoking Status: Current every day smoker Tobacco Type: Cigarettes Cigarettes Per Day: 10 per day; Second Hand Exposure: No; Hx Alcohol Use: No Hx Substance Use: No Preferred Language: Bermudian Communication Ability: Effective Special Education Para Professional Required: No Beliefs That Will Affect Care: None Current Living Situation: Alone Current Living Situation Comment: lives in a trailer Feels Safe at Home: Yes Assistive Devices: Cane Review of Systems Constitutional: no fever and no chills Eyes: no diplopia Ear, Nose, Mouth, Throat: no ear pain Respiratory: no cough and no dyspnea Cardiovascular: no chest pain Gastrointestinal: + abdominal pain; no nausea, no vomiting, no diarrhea/loose stools and no blood in stools Genitourinary: no dysuria Musculoskeletal: + back pain (Chronic pain from ankylosing spondylitis) Integumentary: no rash Neurologic: + unsteadiness (Walks with a cane) Physical Exam Constitutional: no acute distress Eyes: no conjunctival abnormality ENMT: Ears: no hearing impairment Mouth: no oropharynx abnormality Neck: trachea midline Respiratory: normal respiratory effort; no respiratory distress and no labored breathing Cardiovascular: Rate/Rhythm: regular rate and regular rhythm Gastrointestinal (Abdomen): Patient's abdomen is soft. Bowel sounds are present. Patient has a well-healed midline incision. Patient is noted to have a large ventral hernia. This area is painful to palpation. There is no discoloration of the skin around this area. Musculoskeletal: No calf tenderness Skin: no rashes Neurologic: moves all extremities Psychiatric: A+Ox3, euthymic affect Results & Data ([facility]) Vital Signs (Past 12 Hours) Vital Signs Temp Pulse Pulse Resp BP BP Pulse Ox 02/26/21 20:17 75 22 102/42 L 97 02/26/21 20:14 36.7 C 66 16 92/47 L 100 02/26/21 20:02 92/47 L 02/26/21 19:59 36.9 C 62 20 104/42 L 99 02/26/21 18:45 70 16 119/59 L 99 02/26/21 18:30 63 18 110/58 L 100 02/26/21 18:03 67 16 100/50 L 100 02/26/21 17:45 75 18 87/50 L 100 02/26/21 17:20 60 16 113/57 L 100 02/26/21 17:00 60 17 93/46 L 100 02/26/21 16:53 36.7 C 63 16 100/36 L 100 02/26/21 16:43 36.7 C 66 16 113/38 L 100 02/26/21 15:16 60 23 100/39 L 02/26/21 15:00 73 17 102/52 L 02/26/21 14:57 61 18 100/61 02/26/21 14:43 68 19 62/43 L 02/26/21 13:52 36.3 C L 69 18 95/40 L 100 PG Care Time/CCT Total # of Minutes Spent Total Time Spent with Patient: Total time spent is greater than 50% in coordination of care (as documented) at patient's floor/unit and/or counseling patient: Coding Level of Care Code 88277 Inpt Consult Level 5 Diagnoses SBO (small bowel obstruction) K56.609
[2021-02-26] MEDS: SODIUM CHLORIDE 0.9% 1000ML 1,000 ML IV SCH (22:26)
[2021-02-26 23:54] LABS: Hematocrit (blood only) 24.4 % (42-52); Hemoglobin 7.3 g/dL (14.0-18.0)
[2021-02-27] MEDS: oxyCODONE HCL IR 5 MG TAB (IMMEDIATE RELEASE) PO PRN ×2 (03:12→08:53)
[2021-02-27] MEDS: OCTREOTIDE ACETATE 500 MCG in 0.9 % SODIUM CHLORIDE 100 ML IV SCH ×2 (04:26→12:51)
[2021-02-27] MEDS: PANTOprazole 40 MG in DEXTROSE 5% 100 ML IV SCH ×3 (04:28→12:51)
--- NOTE | 2021-02-27 06:24 | Surgery Progress Note ---
Date of Service February 27, 2021 Assessment & Plan (1) SBO (small bowel obstruction): Plan: Patient remains asymptomatic in regards to the small bowel obstruction noted on CT scan recommend continued treatment of his GI bleed as outlined by the medical service due to his numerous underlying medical comorbidities would be best to avoid surgical intervention which is not appear to be acutely needed at this time We will continue following with the patient is hospitalized. Admission and Anticipated Discharge Date Admission Date: February 26, 2021 Supervising Physician Co-Signing Physician Notes Feels much better when he first came in no abdominal findings stated he had the hernia repaired multiple times in the past Subjective Patient is currently resting comfortably in bed. Since his current presentation he has not had any nausea or vomiting. He notes that his bowels are moving. He denies any melena or bright red blood per rectum. He did have some minor abdominal pain last evening at the time I examined this is completely resolved. Physical Exam Gastrointestinal (Abdomen): Abdomen is soft and nontender. Palpation did not cause pain at time of my exam this morning Results & Data ([facility]) Vital Signs (Past 12 Hours) Vital Signs Temp Pulse Pulse Resp BP BP Pulse Ox 02/27/21 04:05 36.7 C 62 18 99/61 L 97 02/26/21 22:16 36.7 C 56 L 18 98/55 L 99 02/26/21 20:32 36.7 C 62 18 107/58 L 98 02/26/21 20:17 75 22 102/42 L 97 02/26/21 20:14 36.7 C 66 16 92/47 L 100 02/26/21 20:02 92/47 L 02/26/21 19:59 36.9 C 62 20 104/42 L 99 02/26/21 19:45 36.8 C 66 20 90/52 L 100 02/26/21 18:45 70 16 119/59 L 99 02/26/21 18:30 63 18 110/58 L 100 PG Care Time/CCT Total # of Minutes Spent Total Time Spent with Patient: Total time spent is greater than 50% in coordination of care (as documented) at patient's floor/unit and/or counseling patient: Coding Level of Care Code 15534 Subseq Hosp Care Lvl 1 Diagnoses SBO (small bowel obstruction) K56.609
--- NOTE | 2021-02-27 06:54 | Electrocardiogram Report ---
Test Reason : Blood Pressure : / mmHG Vent. Rate : 065 BPM Atrial Rate : 065 BPM P-R Int : 176 ms QRS Dur : 080 ms QT Int : 394 ms P-R-T Axes : 006 -40 039 degrees QTc Int : 409 ms Normal sinus rhythm Left axis deviation Possible Septal infarct (cited on or before 05-SEP-2019) Abnormal ECG When compared with ECG of 05-SEP-2019 20:48, No significant change was found Confirmed by Kwadwo Thacker ([id number]) on 02/27/2021 6:53:48 AM Referred By: NO PCP Confirmed By:Kwadwo Thacker
[2021-02-27 07:56] LABS: Mean Corpuscular Hgb Conc 29.8 g/dL (32-36)
[2021-02-27 08:03] LABS: INR 1.5 (0.9-1.1); Prothrombin Time 14.6 Seconds (9.0-12.0)
[2021-02-27 08:06] LABS: Hematocrit (blood only) 23.8 % (42-52); Hemoglobin 7.1 g/dL (14.0-18.0); Mean Corpuscular Hemoglobin 18.2 pg (25-34); RDW Coefficient of Variation 26.5 % (11.5-14.5); RDW Standard Deviation 57.2 fL (36.4-46.3)
[2021-02-27 08:15] LABS: Platelet Count 69 K/uL (130-400); Platelet Estimate Decreased (Normal)
[2021-02-27 08:16] LABS: Calcium 7.4 mg/dl (8.5-10.1); Creatinine Clr Calc Pharmacy 74.2 ml/min; Est GFR (African American) 110.8 ml/min; Est GFR (Non-African American) 95.6 ml/min; Magnesium 2.1 mg/dl (1.8-2.4); Potassium 4.3 mmol/L (3.5-5.1)
[2021-02-27] MEDS: SODIUM CHLORIDE 0.9% 1000ML 1,000 ML IV SCH (08:47)
[2021-02-27] MEDS: NICOTINE 14 MG/24 HR PATCH TD SCH (08:48)
[2021-02-27] MEDS ORDERED: ATENOLOL 25 MG TABLET PO SCH (09:00)
[2021-02-27] MEDS ORDERED: THIAMINE HCL 100 MG TAB PO SCH (09:00)
[2021-02-27] MEDS ORDERED: FOLIC ACID 1 MG TAB PO SCH (09:00)
[2021-02-27] MEDS ORDERED: CIPROFLOXACIN 500 MG TAB PO SCH (09:00)
[2021-02-27] MEDS ORDERED: SPIRONOLACTONE 100 MG TAB PO SCH (09:00)
[2021-02-27] MEDS ORDERED: FUROSEMIDE 20 MG TAB PO SCH (09:00)
--- NOTE | 2021-02-27 11:35 | Hospitalist Progress Note ---
Date of Service February 27, 2021 Assessment & Plan Admission and Anticipated Discharge Date Admission Date: February 26, 2021 Results & Data Results & Data ([facility]) Vital Signs (Past 12 Hours) Vital Signs Temp Pulse Pulse Resp BP Pulse Ox 02/27/21 07:45 36.8 C 61 16 91/50 L 97 02/27/21 07:22 67 02/27/21 04:05 36.7 C 62 18 99/61 L 97
--- NOTE | 2021-02-27 11:57 | Gastrointestinal Consultation ---
Date of Consultation February 27, 2021 Assessment & Plan (1) Anemia: 60 yo male wiht severe ank spondy. Crohn's disease, ANG/ELIAN cirrhosis with ascites, chronic pain on narcs, anemia admitted when found to have hgb of 5. Denies over tmelena or hematochezia. Overdue for EGD +/- colonoscopy. Hgb stable after transfusion. Patient does not want to stay in the hospital. After a long conversation, will arrange an outpatient EGD early this coming week at [facility]. Will decide on colonoscopy timing pending that result. Will need close PCP follow up (2) Crohns disease: (3) Ankylosing spondylitis: (4) Cirrhosis of liver: History of Present Illness Reason for Consultation: microcytic anemia cirrhosis IBD Attending Physician: Vidya Swartz MD History of Present Illness Mr. Armenta is a 60 yo male with multiple comorbidities including IBD, ank spondy, cirrhosis, chronic anemia, chronic pain on narcs admitted after PCP visit when hgb was noted to be 5. He adamantly denies any melena or hematochezia. Has been having diarrhea which is chronic. Overdue for EGD and colonoscopy. He was transfused and his hgb today is stable at 7.1 He is tearful and states he can not stay in the hspital. Allergies Allergy/AdvReac Type Severity Reaction Status Date / Time adalimumab Allergy Severe RASH Verified 02/26/21 16:23 etanercept Allergy Severe RASH Verified 02/26/21 16:23 shellfish derived Allergy Severe Anaphylaxis Verified 02/26/21 16:23 tromethamine Allergy Severe RASH Verified 02/26/21 16:23 Penicillins Allergy Intermediate PASSED OUT Verified 02/26/21 16:23 bee venom protein (honey bee) Allergy Unknown PASSED OUT Verified 02/26/21 16:23 benzyl alcohol Allergy Unknown RASH Verified 02/26/21 16:23 mouse protein Allergy Unknown FACE AND Verified 02/26/21 16:23 MOUTH SWELL secukinumab Allergy Unknown FACE AND Verified 02/26/21 16:23 MOUTH SWELL sorbitan esters Allergy Unknown FACE AND Verified 02/26/21 16:23 MOUTH SWELL varenicline AdvReac Unknown VEINS IN Verified 02/26/21 16:23 FEET BLEW Home Medications Medication Instructions Recorded Confirmed Type atenolol 25 mg tablet 25 mg PO QAM 03/16/18 02/26/21 History oxycodone 5 mg tablet 7.5 mg PO QID PRN 03/16/18 02/26/21 History pantoprazole 40 mg tablet,delayed 40 mg PO QAM 03/16/18 02/26/21 History release Saccharomyces boulardii 250 mg 250 mg PO DAILY 12/07/18 02/26/21 History capsule (Florastor) ciprofloxacin HCl 500 mg tablet 500 mg PO QAM 09/05/19 02/26/21 History furosemide 20 mg tablet 20 mg PO QAM 09/05/19 02/26/21 History thiamine HCl (vitamin B1) 100 mg 100 mg PO QAM 09/05/19 02/26/21 History tablet (Vitamin B-1) folic acid 1 mg tablet 1 mg PO DAILY 02/26/21 02/26/21 History spironolactone 50 mg tablet 100 mg PO DAILY 02/26/21 02/26/21 History Patient History Medical History (Updated 02/26/21 @ 20:11 by Linda Mooney PA-C) Ankylosing spondylitis Chronic anemia Cirrhosis of liver Crohns disease Esophageal varices with banding GERD (gastroesophageal reflux disease) Hypertension Mitral valve prolapse ?pt states some providers say he does, some say he doesnt--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 History of esophagogastroduodenoscopy (EGD) History of right inguinal hernia repair had 1 umbilical hernia repair at same time History of tonsillectomy and adenoidectomy History of tooth extraction wisdom teeth History of umbilical hernia repair ruptured and repaired 07/2017 Family History Mother Family history of reaction to anesthesia "slow to wake up a couple different times" Father Lung cancer Social History Smoking Status: Current every day smoker Tobacco Type: Cigarettes Cigarettes Per Day: 5; Second Hand Exposure: No; Hx Alcohol Use: No Hx Substance Use: Yes Last Used Substance: Hours (ago) Last Used Substance Other:: nightly use Preferred Language: Maori Communication Ability: Effective 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 Process 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 Required: No Beliefs That Will Affect Care: None Current Living Situation: Alone Current Living Situation Comment: lives in a trailer Feels Safe at Home: Yes Assistive Devices: Cane Review of Systems Review of Systems: 12 systems reviewed and negative except as noted in HPI Physical Exam Constitutional: WD/WN, vitals as above Respiratory: normal respiratory effort, lungs clear to auscultation Cardiovascular: RRR, no murmur, no edema Gastrointestinal (Abdomen): normal bowel sounds, soft, nontender, no hepatosplenomegaly Results & Data ([facility]) Vital Signs (Past 12 Hours) Vital Signs Temp Pulse Pulse Resp BP BP Pulse Ox 02/27/21 11:41 62 18 83/46 L 96 02/27/21 07:45 36.8 C 61 16 91/50 L 97 02/27/21 07:22 67 02/27/21 04:05 36.7 C 62 18 99/61 L 97
--- NOTE | 2021-02-27 18:21 | Discharge Summary ---
Date of Service February 27, 2021 Admission HPI Per Admitting Provider 60-year-old male with PMH cirrhosis with esophageal varices and ascites, chronic iron deficiency anemia, GERD, Crohn's disease, and other problems listed below who presents to the ED by referral of PCP for anemia. Patient reports he was at routine PCP visit today. Had labs drawn that showed a hemoglobin 5.0. Patient reports having some diarrhea the past couple of days. Denies bright red bleeding per rectum and dark tarry stools. No other symptoms reported, patient reports he has been feeling well. Denies abdominal pain, nausea, vomiting. Does have some mildly increased abdominal distention. Denies chest pain or shortness of breath. No lightheadedness, dizziness, diaphoresis, syncopal events. Denies fevers and chills. No urinary symptoms. In the ED, labs show Hgb 5.0. MG +1.6. CT ABD/pelvis shows SBO. Patient was given magnesium replacement and Protonix bolus and drip. He was also typed and crossed for 2 units of blood which is currently infusing. Admission Exam Per Admitting Provider General: Severely malnourished (muscle wasting, bony prominences), chronically ill looking Eyes: PERRL, pale conjunctiva, EOM intact bilaterally ENMT: External ear and nose normal, oropharynx normal Respiratory: Normal respiratory effort, no respiratory distress, lungs clear to auscultation, no crackles and no wheezes Cardiovascular: Pulse is RRR. S1 S2 Gastrointestinal (Abdomen): Abdomen is distended, soft, non-tender to palpation, no guarding +l bowel sounds Musculoskeletal: + bilateral leg edema with chronic stasis skin changes Neurologic: Alert and oriented x 3, No focal weakness, sensation grossly intact Psychiatric: Alert and oriented x 3, euthymic affect, no depressed affect Principal Diagnosis -Microcytic anemia, acute on chronic -SBO -Severe malnutrition Discharge Exam General: Severely malnourished (muscle wasting, bony prominences), chronically ill looking Eyes: PERRL, pale conjunctiva, EOM intact bilaterally ENMT: External ear and nose normal, oropharynx normal Respiratory: Normal respiratory effort, no respiratory distress, lungs clear to auscultation, no crackles and no wheezes Cardiovascular: Pulse is RRR. S1 S2 Gastrointestinal (Abdomen): Soft, nontender, normoactive BS Musculoskeletal: + bilateral leg edema with chronic stasis skin changes Neurologic: Alert and oriented x 3, No focal weakness, sensation grossly intact Psychiatric: Alert and oriented x 3, euthymic affect, no depressed affect Discharge Data Allergies Allergy/AdvReac Type Severity Reaction Status Date / Time adalimumab Allergy Severe RASH Verified 02/26/21 16:23 etanercept Allergy Severe RASH Verified 02/26/21 16:23 shellfish derived Allergy Severe Anaphylaxis Verified 02/26/21 16:23 tromethamine Allergy Severe RASH Verified 02/26/21 16:23 Penicillins Allergy Intermediate PASSED OUT Verified 02/26/21 16:23 bee venom protein (honey bee) Allergy Unknown PASSED OUT Verified 02/26/21 16:23 benzyl alcohol Allergy Unknown RASH Verified 02/26/21 16:23 mouse protein Allergy Unknown FACE AND Verified 02/26/21 16:23 MOUTH SWELL secukinumab Allergy Unknown FACE AND Verified 02/26/21 16:23 MOUTH SWELL sorbitan esters Allergy Unknown FACE AND Verified 02/26/21 16:23 MOUTH SWELL varenicline AdvReac Unknown VEINS IN Verified 02/26/21 16:23 FEET BLEW Consultations 02/26/21 17:10 ED Decision to Admit Stat 02/26/21 20:03 Consult Gastroenterology Routine Consult General Surgery Routine Ordered Studies 02/26/21 14:41 CT abd pelvis IV con only Stat Lower chest: No acute abnormality Liver: Liver is cirrhotic. Gallbladder and biliary tree: No calcified gallstones. Normal caliber wall. No intra- or extrahepatic biliary ductal dilation. Pancreas: Unremarkable, no focal lesions. Spleen: Splenule is incidentally noted. Adrenals: Unremarkable. Kidneys and ureters: Unremarkable. Bladder: Unremarkable. Reproductive organs: Unremarkable. Bowel: Distention of the small bowel is seen measuring up to 36 mm with multiple air-fluid levels seen. There is wall thickening of the small bowel most prominent in the ventral hernia. No proximal transition point is seen, a distal transition point is suggested within the ventral hernia. Lymph nodes Retroperitoneal: Unremarkable. Mesenteric: Unremarkable. Pelvic: Unremarkable. Peritoneum: Moderate ascites is seen. Vessels: Atherosclerotic calcifications are seen. Variceal formation is again noted. Abdominal wall: A large ventral hernia is seen containing multiple loops of bowel. Bones: Degenerative changes in the visualized spine. IMPRESSION: 1. Small bowel obstruction is seen with multiple dilated loops of small bowel. Wall thickening is noted within the ventral hernia but there is no evidence of pneumatosis or free air. 2. No evidence of significant intraperitoneal hemorrhage. 3. Cirrhosis with ascites and formation of varices, similar in appearance to prior exam. 4. Osseous findings suggestive of ankylosing spondylitis. Hospital Course (1) Upper GI bleeding: (2) Esophageal varices: (3) Anemia: -Patient presenting by referral PCPs office for evaluation of anemia -Hgb 5.0, Hemoccult positive in ED -History of cirrhosis with grade 1 esophageal varices (per EGD 08/2019) -Hemodynamically stable -Received 2 units of PRBC in the ER. Was started on PPI and octreotide drip Discussed with cement worker today who plan to do endoscopies. However, patient declined staying in the hospital. Despite multiple conversation with patient about need for stabilization and further evaluation, he declined and signed out AGAINST MEDICAL ADVICE with full understanding of the risk. Discussed with cement worker who plans to schedule endoscopy as outpatient as soon as possible (4) SBO (small bowel obstruction): -CT ABD/pelvis shows signs of SBO -Patient mostly asymptomatic -reporting diarrhea x 2 days -Underlying Crohn's and chronic narcotic use likely contributing Was evaluated by general surgery but no operative procedure recommended due to not being symptomatic (5) Cirrhosis of liver: -History of cirrhosis with esophageal varices and ascites -Continue home diuretics (6) Crohns disease: -Currently not on medication (7) Ankylosing spondylitis: -Continue home chronic pain medications Total Time Total Time Spent Total Time Spent (In Minutes): 40 Total Time Includes: Examination of the Patient, Discharge Planning, Medication Reconciliation and Communication With Other Providers Discharge Plan Discharge Items Patient Disposition: Home - Self-Care Reason For Visit: HEMOGLOBIN IS AT 5 Discharge Diagnosis: Acute on chronic anemia Likely GI bleed Condition on Discharge: Serious Activity: Resume your previous activity Non-emergency contact: Primary Care Provider and Direct Marketing Analyst Call non-emergency contact if: you have any medication questions and your symptoms worsen Follow-up/Referrals: Howard Black DO [Primary Care Provider] - Diet: Heart Healthy Addtl Attending Provider Instructions: Left AMA Pending Studies at Discharge: No Stand-Alone Forms: [employer], Smoking Cessation Medications and DC Order Prescriptions: Continued atenolol 25 mg Tablet 25 mg PO QAM RF: 0 pantoprazole 40 mg Tablet,Delayed Release (Dr/Ec) 40 mg PO QAM RF: 0 oxycodone 5 mg Tablet 7.5 mg PO QID PRN (Reason: Pain) RF: 0 Saccharomyces boulardii [Florastor] 250 mg capsule 250 mg PO DAILY RF: 0 thiamine HCl (vitamin B1) [Vitamin B-1] 100 mg tablet 100 mg PO QAM RF: 0 ciprofloxacin HCl 500 mg tablet 500 mg PO QAM RF: 0 furosemide 20 mg tablet 20 mg PO QAM RF: 0 spironolactone 50 mg tablet 100 mg PO DAILY RF: 0 folic acid 1 mg Tablet 1 mg PO DAILY RF: 0 Discharge Orders: Discharge Order (Routine); Ordered 02/27/21 Ordered By: Vidya Swartz Admission Data Admit Date/Time: 02/26/21 17:29 Attending Provider: Vidya Swartz I. Admit Provider: Vidya Swartz I. Primary Care Provider: Howard Black Other Providers: Anuja Hernadez ; Itz Velasco ; Vidya Swartz I. Other Interventions: Discharge Summary Assessment (RN) Last Done: 02/27/21 18:22
== END 2021-02-27 15:45 | disposition home or self-care (01) ==
LOC: ED 13:50 → EDINP 17:29 → INTOOBSV 17:29 → 2N 02-27 02:29
DX: Z88.0 Allergy status to penicillin; I85.00 Esophageal varices without bleeding; K92.2 Gastrointestinal hemorrhage, unspecified; Z91.030 Bee allergy status; I10 Essential (primary) hypertension; K74.60 Unspecified cirrhosis of liver; K21.9 Gastro-esophageal reflux disease without esophagitis; K56.609 Unspecified intestinal obstruction, unspecified as to partial versus complete obstruction; Z79.899 Other long term (current) drug therapy; M06.9 Rheumatoid arthritis, unspecified; F17.210 Nicotine dependence, cigarettes, uncomplicated; Z91.013 Allergy to seafood; K50.90 Crohn's disease, unspecified, without complications; D64.9 Anemia, unspecified; Z79.891 Long term (current) use of opiate analgesic

== ENCOUNTER 2021-10-20 15:35 | Inpatient (IN) ==
--- NOTE | 2021-10-20 16:06 | Emergency Department Note ---
Impression & Plan Acute hepatic encephalopathy, Cirrhosis of liver, Anemia, Hypocalcemia, Hypomagnesemia, Acidosis, lactic, Acute dehydration ED Provider Note NAME: EPI YAÑEZ AGE: 61 SEX: M : 1960 ARRIVES VIA: Ambulance INFORMANT: Patient, ED PROVIDER(S): Polo Bell MD Chief Complaint: Confusion HPI: Patient presents due to confusion. The patient is able to occasionally answer questions with a history is fairly limited to yes and no. The patient states that he does have pain everywhere and states that I am "mean." Patient states that he is not getting fluid removed from his abdomen. Per review of the patient's chart patient does have a known history of cirrhosis. The patient denies any drinking history. ROS: Limited secondary to patient's clinical condition. Past medical history: See below Surgical history: See below Social history: See below Physical Exam: GENERAL: Cachectic and unwell in appearance, mask in place. Temporal wasting. EYE EXAM: Normal conjunctiva. PERRL, no anisocoria and EOM's grossly intact w/o pain. OROPHARYNX: Dry mucus membranes. Grossly normal dentition. NECK: Supple, no nuchal rigidity, no adenopathy, non-tender. No signs of meningismus. LUNGS: Clear to auscultation. Normal chest wall mechanics. HEART: NSR, no MRG. ABDOMEN: Two-parent but soft abdomen, well-healed incisional scar, skin redness to the intertriginous area without fluctuance or drainage. BACK: No CVA TTP. SKIN: No rashes and no bruising. UPPER EXTREMITIES: Upper extremities are grossly normal. LOWER EXTREMITIES: Lymphedema changes of the bilateral lower extremities without drainage. NEURO EXAM: Moves all 4 extremities will occasionally respond to yes and no questioning. No obvious dysarthria. Differential diagnoses: Infection, dehydration, metabolic abnormality, hypo/hyperglycemia, electrolyte disturbance, anemia, hypoxia, cardiac sources, intracerebral event, toxicologic, neurologic, as well as other pathologies. Course: Patient was seen and evaluated the bedside. Full history physical exam was performed. EKG interpreted by me Significant motion artifact. Patient has a ventricular rate of 104, QRS which is normal, left axis deviation. Imaging Studies: See Below Cardiac monitoring: An order was placed for continuous cardiac monitoring. The monitor shows a rate of 88 with sinus rhythm. MDM: Patient was seen due to concern for altered mental status. The patient will intermittently answer questions. History is somewhat difficult to obtain. Blood work was obtained which showed the patient has a white count of 11 with hemoglobin 8.7. Hemoglobin is better compared to prior. Platelet count is normal. Kidney function with prerenal azotemia hypocalcemia and hypomagnesemia. The patient did receive IV fluids. Lactate was greater than 3. The patient do es have elevated ammonia. Alcohol is not elevated. Given the concern for the hepatic encephalopathy and electrolyte abnormalities and dehydration I did speak with the on-call hospitalist Heaven Valdez PA-C and the patient was admitted to the medicine service by Dr. Trujillo. CT of the head is negative. 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 Peritonitis with abscess of intestine hx - reports abscess drained [facility] 2019 Rheumatoid arthritis Surgical History History of abdominal paracentesis History of bunionectomy History of colonoscopy most recent 08/2018 [facility] History of esophagogastroduodenoscopy (EGD) History of hammertoe correction History of repair of hiatal hernia History of right inguinal hernia repair had 1 umbilical hernia repair at same time History of tonsillectomy and adenoidectomy History of tooth extraction wisdom teeth History of umbilical hernia repair ruptured and repaired 07/2017 Family History Mother Family history of reaction to anesthesia "slow to wake up a couple different times" Father Lung cancer Social History Smoking Status: Current some day smoker Tobacco Type: Cigarettes Cigarettes Per Day: 5; Second Hand Exposure: No; Hx Alcohol Use: No Hx Substance Use: Yes Last Used Substance: Days (ago) Last Used Substance Other:: nightly use Preferred Language: Yoruba Communication Ability: Effective Client Relations Representative Required: No Beliefs That Will Affect Care: None Current Living Situation: Alone Current Living Situation Comment: lives in a trailer Feels Safe at Home: Declines to Answer Assistive Devices: Cane and Glasses Allergies Allergies Allergy/AdvReac Type Severity Reaction Status Date / Time adalimumab Allergy Severe LEGS & Verified 10/20/21 17:52 FEET SWELLED, ABCESS ON ANKLE etanercept Allergy Severe SEVERE Verified 10/20/21 17:52 CUTANEOUS LOCAL REACTION tromethamine Allergy Severe RASH Verified 10/20/21 17:52 bee venom protein (honey bee) Allergy Intermediate PASSED OUT Verified 10/20/21 17:52 benzyl alcohol Allergy Intermediate RASH Verified 10/20/21 17:52 mouse protein Allergy Intermediate FACE AND Verified 10/20/21 17:52 MOUTH SWELL Penicillins Allergy Intermediate PASSED OUT Verified 10/20/21 17:52 secukinumab Allergy Intermediate FACE AND Verified 10/20/21 17:52 MOUTH SWELL shellfish derived Allergy Intermediate HYPERTENSION-CLAMS Verified 10/20/21 17:52 & CRABSS sorbitan esters Allergy Intermediate FACE AND Verified 10/20/21 17:52 MOUTH SWELL varenicline AdvReac Intermediate VEINS IN Verified 10/20/21 17:52 FEET BLEW Home Meds Home Medications Medication Instructions Recorded Confirmed oxycodone 5 mg tablet 7.5 mg PO QID PRN 03/16/18 10/20/21 pantoprazole 40 mg tablet,delayed 40 mg PO QAM 03/16/18 10/20/21 release thiamine HCl (vitamin B1) 100 mg 100 mg PO QAM 09/05/19 10/20/21 tablet (Vitamin B-1) folic acid 1 mg tablet 1 mg PO DAILY 02/26/21 10/20/21 spironolactone 50 mg tablet 100 mg PO QAM 02/26/21 10/20/21 ciprofloxacin HCl 500 mg tablet 500 mg PO QAM 03/01/21 10/20/21 atenolol 25 mg tablet 25 mg PO DAILY 10/20/21 10/20/21 bisacodyl 5 mg tablet 5 mg PO DAILY PRN 10/20/21 10/20/21 ferrous gluconate 236 mg (27 mg 236 mg PO Q OTHER DAY 10/20/21 10/20/21 iron) tablet furosemide 20 mg tablet 20 mg PO DAILY 10/20/21 10/20/21 nicotine (polacrilex) 4 mg gum 4 mg BUCCAL TID PRN 10/20/21 10/20/21 polyethylene glycol 3350 17 17 g PO DAILY 10/20/21 10/20/21 gram/dose oral powder (Miralax) Results & Data (ED) Vital Signs Vital Signs - 24 hr 10/20/21 15:27 10/20/21 17:08 Temperature 36.8 C Temperature Source Oral Pulse Rate 108 H 98 H Respiratory Rate 20 Respiratory Effort / Characteristics Spontaneous Respiratory Depth Shallow Blood Pressure 122/74 Blood Pressure Mean 90 Pulse Oximetry 95 94 Oxygen Delivery Method Room Air Room Air Sepsis New/Unexplained Change in Mental Status N/A Sepsis Action Taken by Nursing No Action Required Home Medications Current Medication List: was personally reviewed by me Laboratory Data Attestation: I reviewed the patient's lab results. Result diagrams: 10/20/21 15:54 10/20/21 15:54 Lab Results 10/20/21 10/20/21 10/20/21 Range/Units 15:43 15:54 15:54 WBC (4.8-10.8) K/uL RBC (4.7-6.1) M/uL Hgb (14.0-18.0) g/dL Hct (42-52) % MCV (80-100) fL MCH (25-34) pg MCHC (32-36) g/dL RDW Std Deviation (36.4-46.3) fL RDW Coeff of Ronnie (11.5-14.5) % Plt Count (130-400) K/uL Immature Gran % (Auto) % Neut % (Auto) % Lymph % (Auto) % Cochran % (Auto) % Eos % (Auto) % Baso % (Auto) % Neut # (Auto) (1.4-6.5) K/uL Lymph # (Auto) (1.2-3.4) K/uL Cochran # (Auto) (0.11-0.59) K/uL Eos # (Auto) (0-0.5) K/uL Baso # (Auto) (0-0.2) K/uL Immature Gran # (Auto) (0.00-0.02) K/uL Platelet Estimate (Normal) Polychromasia Hypochromasia Poikilocytosis Anisocytosis Microcytosis PT 15.1 H (9.0-12.0) Seconds INR 1.4 H (0.9-1.1) Sodium (136-145) mmol/L Potassium (3.5-5.1) mmol/L Chloride (98-107) mmol/L Carbon Dioxide (21-32) mmol/L Anion Gap (3-11) BUN (6-23) mg/dl Creatinine (0.6-1.4) mg/dl Est Cr Clr Drug Dosing Est GFR ( Amer) ml/min Est GFR (Non-Af Amer) ml/min BUN/Creatinine Ratio (10-20) Glucose (70-99(Fasting)) mg/dl POC Glucose 86 (70-99) mg/dl Lactate 3.6 H* (0.4-2.0) mmol/L Calcium (8.5-10.1) mg/dl Magnesium (1.7-2.4) mg/dl Total Bilirubin (0.2-1.0) mg/dl Direct Bilirubin (0-0.2) mg/dl AST (13-39) U/L ALT (7-52) U/L Alkaline Phosphatase (34-104) U/L Ammonia (18-72) umol/L Total Creatine Kinase (30-223) U/L Troponin I High Sens (0-20) pg/ml Total Protein (6.0-8.3) gm/dl Albumin (3.4-5.0) gm/dl Globulin (2.5-4.0) gm/dl Albumin/Globulin Ratio (0.9-2) TSH (0.300-4.500) uIu/ml Ethyl Alcohol mg/dL (<10.0) mg/dl Blood Type Antibody Screen 10/20/21 10/20/21 10/20/21 Range/Units 15:54 15:54 15:54 WBC 11.87 H (4.8-10.8) K/uL RBC 4.41 L (4.7-6.1) M/uL Hgb 8.7 L (14.0-18.0) g/dL Hct 28.2 L (42-52) % MCV 63.9 L (80-100) fL MCH 19.7 L (25-34) pg MCHC 30.9 L (32-36) g/dL RDW Std Deviation 58.7 H (36.4-46.3) fL RDW Coeff of Ronnie 26.3 H (11.5-14.5) % Plt Count 146 (130-400) K/uL Immature Gran % (Auto) 0.3 % Neut % (Auto) 80.1 % Lymph % (Auto) 7.5 % Cochran % (Auto) 11.9 % Eos % (Auto) 0.0 % Baso % (Auto) 0.2 % Neut # (Auto) 9.52 H (1.4-6.5) K/uL Lymph # (Auto) 0.89 L (1.2-3.4) K/uL Cochran # (Auto) 1.41 H (0.11-0.59) K/uL Eos # (Auto) 0.00 (0-0.5) K/uL Baso # (Auto) 0.02 (0-0.2) K/uL Immature Gran # (Auto) 0.03 H (0.00-0.02) K/uL Platelet Estimate Decreased L (Normal) Polychromasia 1+ Hypochromasia Present Poikilocytosis Present Anisocytosis Present Microcytosis Present PT (9.0-12.0) Seconds INR (0.9-1.1) Sodium 141 (136-145) mmol/L Potassium 3.6 (3.5-5.1) mmol/L Chloride 106 (98-107) mmol/L Carbon Dioxide 21 (21-32) mmol/L Anion Gap 14 H (3-11) BUN 24 H (6-23) mg/dl Creatinine 0.96 (0.6-1.4) mg/dl Est Cr Clr Drug Dosing Not Reportable Est GFR ( Amer) 99.9 ml/min Est GFR (Non-Af Amer) 86.2 ml/min BUN/Creatinine Ratio 25.0 H (10-20) Glucose 78 (70-99(Fasting)) mg/dl POC Glucose (70-99) mg/dl Lactate (0.4-2.0) mmol/L Calcium 7.8 L (8.5-10.1) mg/dl Magnesium 1.0 L (1.7-2.4) mg/dl Total Bilirubin 1.7 H (0.2-1.0) mg/dl Direct Bilirubin (0-0.2) mg/dl AST 30 (13-39) U/L ALT 25 (7-52) U/L Alkaline Phosphatase 64 (34-104) U/L Ammonia 96.0 H (18-72) umol/L Total Creatine Kinase 177 (30-223) U/L Troponin I High Sens 23.3 H (0-20) pg/ml Total Protein 5.4 L (6.0-8.3) gm/dl Albumin 2.5 L (3.4-5.0) gm/dl Globulin 2.9 (2.5-4.0) gm/dl Albumin/Globulin Ratio 0.9 (0.9-2) TSH (0.300-4.500) uIu/ml Ethyl Alcohol mg/dL (<10.0) mg/dl Blood Type Antibody Screen 10/20/21 10/20/21 10/20/21 Range/Units 15:54 15:54 16:35 WBC (4.8-10.8) K/uL RBC (4.7-6.1) M/uL Hgb (14.0-18.0) g/dL Hct (42-52) % MCV (80-100) fL MCH (25-34) pg MCHC (32-36) g/dL RDW Std Deviation (36.4-46.3) fL RDW Coeff of Ronnie (11.5-14.5) % Plt Count (130-400) K/uL Immature Gran % (Auto) % Neut % (Auto) % Lymph % (Auto) % Cochran % (Auto) % Eos % (Auto) % Baso % (Auto) % Neut # (Auto) (1.4-6.5) K/uL Lymph # (Auto) (1.2-3.4) K/uL Cochran # (Auto) (0.11-0.59) K/uL Eos # (Auto) (0-0.5) K/uL Baso # (Auto) (0-0.2) K/uL Immature Gran # (Auto) (0.00-0.02) K/uL Platelet Estimate (Normal) Polychromasia Hypochromasia Poikilocytosis Anisocytosis Microcytosis PT (9.0-12.0) Seconds INR (0.9-1.1) Sodium (136-145) mmol/L Potassium (3.5-5.1) mmol/L Chloride (98-107) mmol/L Carbon Dioxide (21-32) mmol/L Anion Gap (3-11) BUN (6-23) mg/dl Creatinine (0.6-1.4) mg/dl Est Cr Clr Drug Dosing Est GFR ( Amer) ml/min Est GFR (Non-Af Amer) ml/min BUN/Creatinine Ratio (10-20) Glucose (70-99(Fasting)) mg/dl POC Glucose (70-99) mg/dl Lactate (0.4-2.0) mmol/L Calcium (8.5-10.1) mg/dl Magnesium (1.7-2.4) mg/dl Total Bilirubin (0.2-1.0) mg/dl Direct Bilirubin 0.5 H (0-0.2) mg/dl AST (13-39) U/L ALT (7-52) U/L Alkaline Phosphatase (34-104) U/L Ammonia (18-72) umol/L Total Creatine Kinase (30-223) U/L Troponin I High Sens (0-20) pg/ml Total Protein (6.0-8.3) gm/dl Albumin (3.4-5.0) gm/dl Globulin (2.5-4.0) gm/dl Albumin/Globulin Ratio (0.9-2) TSH 2.247 (0.300-4.500) uIu/ml Ethyl Alcohol mg/dL (<10.0) mg/dl Blood Type O Positive Antibody Screen NEGATIVE 10/20/21 Range/Units 16:35 WBC (4.8-10.8) K/uL RBC (4.7-6.1) M/uL Hgb (14.0-18.0) g/dL Hct (42-52) % MCV (80-100) fL MCH (25-34) pg MCHC (32-36) g/dL RDW Std Deviation (36.4-46.3) fL RDW Coeff of Ronnie (11.5-14.5) % Plt Count (130-400) K/uL Immature Gran % (Auto) % Neut % (Auto) % Lymph % (Auto) % Cochran % (Auto) % Eos % (Auto) % Baso % (Auto) % Neut # (Auto) (1.4-6.5) K/uL Lymph # (Auto) (1.2-3.4) K/uL Cochran # (Auto) (0.11-0.59) K/uL Eos # (Auto) (0-0.5) K/uL Baso # (Auto) (0-0.2) K/uL Immature Gran # (Auto) (0.00-0.02) K/uL Platelet Estimate (Normal) Polychromasia Hypochromasia Poikilocytosis Anisocytosis Microcytosis PT (9.0-12.0) Seconds INR (0.9-1.1) Sodium (136-145) mmol/L Potassium (3.5-5.1) mmol/L Chloride (98-107) mmol/L Carbon Dioxide (21-32) mmol/L Anion Gap (3-11) BUN (6-23) mg/dl Creatinine (0.6-1.4) mg/dl Est Cr Clr Drug Dosing Est GFR ( Amer) ml/min Est GFR (Non-Af Amer) ml/min BUN/Creatinine Ratio (10-20) Glucose (70-99(Fasting)) mg/dl POC Glucose (70-99) mg/dl Lactate (0.4-2.0) mmol/L Calcium (8.5-10.1) mg/dl Magnesium (1.7-2.4) mg/dl Total Bilirubin (0.2-1.0) mg/dl Direct Bilirubin (0-0.2) mg/dl AST (13-39) U/L ALT (7-52) U/L Alkaline Phosphatase (34-104) U/L Ammonia (18-72) umol/L Total Creatine Kinase (30-223) U/L Troponin I High Sens (0-20) pg/ml Total Protein (6.0-8.3) gm/dl Albumin (3.4-5.0) gm/dl Globulin (2.5-4.0) gm/dl Albumin/Globulin Ratio (0.9-2) TSH (0.300-4.500) uIu/ml Ethyl Alcohol mg/dL < 10.0 (<10.0) mg/dl Blood Type Antibody Screen Administered Medications Sodium Chloride (Nss 1000ml) 1,000 mls @ 75 mls/hr IV .[id number] Stop: 10/21/21 09:45 Last Admin: 10/20/21 21:13 Dose: 75 mls/hr Documented by: [id number] Discontinued Medications Sodium Chloride (Nss 1000ml) 1,000 mls @ 999 mls/hr IV .[id number] Stop: 10/20/21 17:15 Last Infusion: 10/20/21 18:46 Dose: 0 mls/hr Documented by: [id number] Admin: 10/20/21 16:39 Dose: 999 mls/hr Documented by: [id number] Thiamine HCl 100 mg/ Syringe 10 mls @ 2 mls/min IV NOW STA Stop: 10/20/21 16:41 Last Admin: 10/20/21 17:39 Dose: 2 mls/min Documented by: [id number] Magnesium Sulfate/Dextrose (Magnesium Sulfate / D5w) 1 gm in 100 mls @ 100 mls/hr IV NOW STA Stop: 10/20/21 18:10 Last Infusion: 10/20/21 18:46 Dose: 0 mls/hr Documented by: [id number] Admin: 10/20/21 17:39 Dose: 100 mls/hr Documented by: [id number] Calcium Gluconate () 1,000 mg in 60 mls @ 240 mls/hr IV NOW STA Stop: 10/20/21 17:24 Last Infusion: 10/20/21 18:04 Dose: 0 mls/hr Documented by: [id number] Admin: 10/20/21 17:39 Dose: 240 mls/hr Documented by: [id number] Magnesium Sulfate/Dextrose (Magnesium Sulfate / D5w) 1 gm in 100 mls @ 100 mls/hr IV Q1H KAILA Stop: 10/20/21 20:29 Last Admin: 10/20/21 19:42 Dose: 100 mls/hr Documented by: [id number] Lactulose (Lactulose 200gm/700ml Wtr Enema) 200 gm RI NOW STA Stop: 10/20/21 18:32 Last Admin: 10/20/21 19:34 Dose: 200 gm Documented by: [id number] Imaging Data Radiologist's Impression: Head CT 10/20/21 16:11 CT head/brain wo con CLINICAL HISTORY: confusion Technique: Contiguous axial CT images of the head were acquired from the base of the skull to the vertex without intravenous contrast administration. Images were viewed in brain, subdural and bone windows. Automated dose lowering techniques and/or adjustment according to patient size were utilized for this exam. Comparison: Comparison is made to CT head 06/17/2015 Findings: Areas of decreased attenuation are present in the periventricular and subcortical white matter bilaterally consistent with small vessel ischemic disease. Generalized cerebral atrophy with commensurate enlargement of the ventricles, sulci, and cisterns is also present. There is no acute intracranial hemorrhage or evidence of acute territorial infarction. No shift of the midline structures, mass effect, or extra-axial abnormalities are shown. Atherosclerotic calcifications are present in the intracranial segments of the internal carotid arteries. Imaged portions of the paranasal sinuses and mastoid air cells are clear. The orbits appear normal. There are no acute fractures of the calvaria or scalp swelling. Impression: No acute intracranial hemorrhage, no evidence of acute territorial infarction or other acute intracranial disease process. ACT 112: Negative or not required by law. Electronically signed by: Tomas Nesbitt M.D. 10/20/2021 5:26 PM Chest X-Ray 10/20/21 16:12 XR chest 1V portable CLINICAL HISTORY: weakness TECHNIQUE: Single frontal radiograph of the chest was obtained. Comparison: Comparison is made to chest radiograph 02/26/2021 FINDINGS: No lines and tubes are seen. The cardiomediastinal silhouette is normal. Lungs are underinflated but clear. No evidence of pleural effusion or pneumothorax. IMPRESSION: No acute chest disease. ACT 112: Negative or not required by law. Electronically signed by: Tomas Nesbitt M.D. 10/20/2021 6:46 PM Discharge Plan Visit Data Chief Complaint: Altered Mental Status ED Provider: Polo Bell Discharge Problem: Acute hepatic encephalopathy, Cirrhosis of liver, Anemia, Hypocalcemia, Hypomagnesemia, Acidosis, lactic, Acute dehydration Patient Disposition: Admitted As Inpatient Discharge Instructions Interventions: ED Discharge Assessment Last Done: 10/20/21 19:40
[2021-10-20] MEDS ORDERED: SODIUM CHLORIDE 0.9% 1000ML 1,000 ML IV SCH ×2 (16:15→20:26)
[2021-10-20 16:24] LABS: Mean Corpuscular Hgb Conc 30.9 g/dL (32-36)
[2021-10-20] MEDS ORDERED: THIAMINE HCL 100 MG in SYRINGE 9 ML IV STA (16:37)
[2021-10-20 16:43] LABS: INR 1.4 (0.9-1.1); Prothrombin Time 15.1 Seconds (9.0-12.0)
[2021-10-20 16:47] LABS: Troponin I High Sensitivity 23.3 pg/ml (0-20)
[2021-10-20 16:52] LABS: Alanine Aminotransferase 25 U/L (7-52); Albumin Globulin Ratio 0.9 (0.9-2); Albumin Level 2.5 gm/dl (3.4-5.0); Alkaline Phosphatase 64 U/L (34-104); Anion Gap 14 (3-11); Aspartate Aminotransferase 30 U/L (13-39); Bilirubin,Total 1.7 mg/dl (0.2-1.0); Blood Urea Nitrogen 24 mg/dl (6-23); Calcium 7.8 mg/dl (8.5-10.1); Carbon Dioxide 21 mmol/L (21-32); Chloride 106 mmol/L (98-107); Creatine Kinase 177 U/L (30-223); Est GFR (African American) 99.9 ml/min; Est GFR (Non-African American) 86.2 ml/min; Globulin 2.9 gm/dl (2.5-4.0); Glucose 78 mg/dl (70-99(Fasting)); Potassium 3.6 mmol/L (3.5-5.1); Sodium 141 mmol/L (136-145); Total Protein 5.4 gm/dl (6.0-8.3)
[2021-10-20 17:02] LABS: Hematocrit (blood only) 28.2 % (42-52); Hemoglobin 8.7 g/dL (14.0-18.0); Mean Corpuscular Hemoglobin 19.7 pg (25-34); Mean Corpuscular Volume 63.9 fL (80-100); RDW Coefficient of Variation 26.3 % (11.5-14.5); RDW Standard Deviation 58.7 fL (36.4-46.3); Red Blood Count 4.41 M/uL (4.7-6.1); White Blood Count 11.87 K/uL (4.8-10.8)
[2021-10-20 17:03] LABS: Anisocytosis Present; Basophils # (auto) 0.02 K/uL (0-0.2); Basophils % (auto) 0.2 %; Hypochromasia Present; Immature Granulocytes # (auto) 0.03 K/uL (0.00-0.02); Immature Granulocytes % (auto) 0.3 %; Lymphocytes # (auto) 0.89 K/uL (1.2-3.4); Lymphocytes % (auto) 7.5 %; Microcytosis Present; Monocytes # (auto) 1.41 K/uL (0.11-0.59); Monocytes % (auto) 11.9 %; Neutrophils # (auto) 9.52 K/uL (1.4-6.5); Neutrophils % (auto) 80.1 %; Platelet Count 146 K/uL (130-400); Platelet Estimate Decreased (Normal); Poikilocytosis Present; Polychromasia 1+
[2021-10-20] MEDS ORDERED: CALCIUM GLUCONATE 1,000 MG/60 ML BAG IV STA (17:10)
[2021-10-20] MEDS ORDERED: MAGNESIUM SULFATE / D5W 1 GM/100 ML BAG IV STA (17:11)
--- NOTE | 2021-10-20 17:29 | CT Scan Report ---
CT head/brain wo con CLINICAL HISTORY: confusion Technique: Contiguous axial CT images of the head were acquired from the base of the skull to the trisha harrison without intravenous contrast administration. Images were viewed in brain, subdural and bone [facility] . Automated dose lowering techniques and/or adjustment according to patient size were utilized for this exam. Comparison: Comparison is made to CT head 06/17/2015 Findings: Areas of decreased attenuation are present in the periventricular and subcortical white matter bilate rally consistent with small vessel ischemic disease. Generalized cerebral atrophy with commensurate e nlargement of the ventricles, sulci, and cisterns is also present. There is no acute intracranial hem orrhage or evidence of acute territorial infarction. No shift of the midline structures, mass effect, or extra-axial abnormalities are shown. Atherosclerotic calcifications are present in the intracran ial segments of the internal carotid arteries. Imaged portions of the paranasal sinuses and mastoid air cells are clear. The orbits appear normal. There are no acute fractures of the calvaria or scalp swelling. Impression: No acute intracranial hemorrhage, no evidence of acute territorial infarction or other acute intracra nial disease process. ACT 112: Negative or not required by law. Electronically signed by: Tomas Nesbitt M.D. 10/20/2021 5:26 PM
--- NOTE | 2021-10-20 17:59 | History & Physical Report ---
Date of Service October 20, 2021 Assessment & Plan (1) Hepatic encephalopathy: (2) Cirrhosis of liver: (3) Abdominal ascites: (4) Lactic acid acidosis: (5) Elevated troponin: (6) Chronic anemia: Plan: This is a 61-year-old male who who has significant past medical history of alcoholic cirrhosis, portal hypertension, esophageal varices, chronic anemia, severe malnutrition, ankylosing spondylitis, history of Crohn's, hx of SBO, GERD, NOLBERTO, hepatitis B, tobacco abuse, history of alcohol abuse presents to ED secondary to confusion. Hepatic encephalopathy Cirrhosis of liver Lactic acidosis Abdominal ascites Admit to PCU N.p.o. given encephalopathy Lactulose enema 2 g every 8 hours Recommend adding rifaximin when able to tolerate p.o. Consult gastroenterology Repeat LFTs, INR and ammonia in a.m. Obtain limited ultrasound of abdomen for ascites CT abdomen pelvis given history of SBO Repeat lactic acid pending will give gentle ivf x 1L urine drug tox, pt takes chronic opiates but no signs of respiratory depression blood cultures pending, urine ordered will treat with IV Rocephin for SBP prophylaxis IV Thiamine, Folic Acid and PPI while NPO Elevated troponin Likely in setting of liver disease Patient without chest pain will cycle for completeness Will hold on echo for now Hypomagnesemia Mag 1.0, ordered 1 g mag sulfate x3 in ED Repeat at 2029, supplement as needed Repeat in a.m. Severe malnutrition Hypoalbuminemia Consult dietitian Chronic anemia Secondary to liver disease H&H 8.7 and 28.2 Known portal hypertension and esophageal varices dvt ppx: SCD/TEDS for now in setting of liver disease Dispo: PCU PCP: Wayne FULL CODE Pt was seen and examined in collaboration with Dr. Trujillo, please see addendum The chart was completed utilizing [employer] Speech voice recognition software. Grammatical errors, random word insertions, pronoun errors, and incomplete sentences are an occasional consequence of this system due to software limitations, ambient noise, and hardware issues. Any formal questions or concerns about the content, text, or information contained within the body of this dictation should be directly addressed to the provider for clarification. History of Present Illness Chief Complaint: Brought by EMS due to being found unresponsive at home by family member. Primary Care Provider: Howard Black, DO This is a 61-year-old male who who has significant past medical history of alcoholic cirrhosis, portal hypertension, esophageal varices, chronic anemia, severe malnutrition, ankylosing spondylitis, history of Crohn's, hx of SBO, GERD, NOLBERTO, hepatitis B, tobacco abuse, history of alcohol abuse presents to ED secondary to confusion. ROS and history unobtainable by patient as he has encephalopathic. Per patient's nurse he was brought in by EMS secondary to being found by family member and unresponsive. It is felt that he was last seen in his normal state approximately 24 hours ago. In ED patient was hemodynamically stable although severely encephalopathic. Lab work significant for elevated ammonia level at 96, hypomagnesemia at 1.0, lactic acidosis with a lactic acid of 3.6, elevated troponin 23.3, INR 1.4 WBC 11.87, H&H 8.7 and 28.2, platelet count 146. Head CT was negative for acute abnormality. Patient refused chest x-ray. An EKG was performed with very poor quality secondary to movement, no apparent ischemic change. In ED he received IV thiamine, 1 L of IV fluid, 1 g magnesium sulfate and 1 g calcium gluconate. Allergies Allergy/AdvReac Type Severity Reaction Status Date / Time adalimumab Allergy Severe LEGS & Verified 10/20/21 17:52 FEET SWELLED, ABCESS ON ANKLE etanercept Allergy Severe SEVERE Verified 10/20/21 17:52 CUTANEOUS LOCAL REACTION tromethamine Allergy Severe RASH Verified 10/20/21 17:52 bee venom protein (honey bee) Allergy Intermediate PASSED OUT Verified 10/20/21 17:52 benzyl alcohol Allergy Intermediate RASH Verified 10/20/21 17:52 mouse protein Allergy Intermediate FACE AND Verified 10/20/21 17:52 MOUTH SWELL Penicillins Allergy Intermediate PASSED OUT Verified 10/20/21 17:52 secukinumab Allergy Intermediate FACE AND Verified 10/20/21 17:52 MOUTH SWELL shellfish derived Allergy Intermediate HYPERTENSION-CLAMS Verified 10/20/21 17:52 & CRABSS sorbitan esters Allergy Intermediate FACE AND Verified 10/20/21 17:52 MOUTH SWELL varenicline AdvReac Intermediate VEINS IN Verified 10/20/21 17:52 FEET BLEW Home Medications Medication Instructions Recorded Confirmed Type oxycodone 5 mg tablet 7.5 mg PO QID PRN 03/16/18 10/20/21 History pantoprazole 40 mg tablet,delayed 40 mg PO QAM 03/16/18 10/20/21 History release thiamine HCl (vitamin B1) 100 mg 100 mg PO QAM 09/05/19 10/20/21 History tablet (Vitamin B-1) folic acid 1 mg tablet 1 mg PO DAILY 02/26/21 10/20/21 History spironolactone 50 mg tablet 100 mg PO QAM 02/26/21 10/20/21 History ciprofloxacin HCl 500 mg tablet 500 mg PO QAM 03/01/21 10/20/21 History atenolol 25 mg tablet 25 mg PO DAILY 10/20/21 10/20/21 History bisacodyl 5 mg tablet 5 mg PO DAILY PRN 10/20/21 10/20/21 History ferrous gluconate 236 mg (27 mg 236 mg PO Q OTHER DAY 10/20/21 10/20/21 History iron) tablet furosemide 20 mg tablet 20 mg PO DAILY 10/20/21 10/20/21 History nicotine (polacrilex) 4 mg gum 4 mg BUCCAL TID PRN 10/20/21 10/20/21 History polyethylene glycol 3350 17 17 g PO DAILY 10/20/21 10/20/21 History gram/dose oral powder (Miralax) Past Med/Surg History Medical History Anemia Ankylosing spondylitis Chronic anemia Cirrhosis of liver Crohns disease Encounter for pre-operative examination Esophageal varices with banding GERD (gastroesophageal reflux disease) Hypertension BP med stopped while hospitalized with anemia recently at [facility] -- pt unsure if needs to restart or not (was taking atenolol) Mitral valve prolapse ?pt states some providers say he does, some say he doesnt--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 Peritonitis with abscess of intestine hx - reports abscess drained S 2018 Rheumatoid arthritis Surgical History History of abdominal paracentesis History of bunionectomy History of colonoscopy most recent 08/2018 [facility] History of esophagogastroduodenoscopy (EGD) History of hammertoe correction History of repair of hiatal hernia History of right inguinal hernia repair had 1 umbilical hernia repair at same time History of tonsillectomy and adenoidectomy History of tooth extraction wisdom teeth History of umbilical hernia repair ruptured and repaired 07/2017 Family History Mother Family history of reaction to anesthesia "slow to wake up a couple different times" Father Lung cancer Social History Smoking Status: Current some day smoker Tobacco Type: Cigarettes Cigarettes Per Day: 5; Second Hand Exposure: No; Hx Alcohol Use: No Hx Substance Use: Yes Last Used Substance: Days (ago) Last Used Substance Other:: nightly use Preferred Language: Macedonian Communication Ability: Effective Front End Alignment Specialist Required: No Beliefs That Will Affect Care: None Current Living Situation: Alone Current Living Situation Comment: lives in a trailer Feels Safe at Home: Declines to Answer Assistive Devices: Cane and Glasses Review of Systems Review of Systems: Unobtainable due to cognitive status Physical Exam Physical Exam: Constitutional: Fraile, malnourished, M, arousable to painful stimuli but unable to have meaningful conversation, vitals as above, yells, "ouch." Head: Normocephalic, Atraumatic, b/l temporal wasting Eyes: PERRL, conjunctivae normal, anicteric sclerae ENMT: external ear and nose normal, oropharynx dry membranes Neck: trachea midline, no thyromegaly normal visual inspection Respiratory: normal respiratory effort, lungs clear to auscultation, no wheeze, rales, rhonchi. Normal insp/exp effort, no accessory muscle use Cardiovascular: RRR, 1/6 colin cardiac apex, b/l nonpitting edema, b/l severe venous stasis changes Vessels: no JVD or carotid bruit Chest: normal inspection of chest Abdomen: +ascites noted, +BS, soft, nontender, Musculoskeletal: no cyanosis or clubbing, unable to assess strength Skin: no rashes, warm and moderate normal turgor Neurologic: PERRL, EOMI, accommodation nl, no face palsy, no dysarthria CN's II-XI intact bilaterally and moves all extremities Psychiatric:arousable to painful stimuli but not alert or oriented, : deferred Results & Data Results & Data ([facility]) Vital Signs (Past 12 Hours) Vital Signs Temp Pulse Resp BP Pulse Ox 10/20/21 17:08 98 H 94 10/20/21 15:27 36.8 C 108 H 20 122/[address] 10/20/21 16:11 CT head/brain wo con CLINICAL HISTORY: confusion Technique: Contiguous axial CT images of the head were acquired from the base of the skull to the vertex without intravenous contrast administration. Images were viewed in brain, subdural and bone windows. Automated dose lowering techniques and/or adjustment according to patient size were utilized for this exam. Comparison: Comparison is made to CT head 06/17/2015 Findings: Areas of decreased attenuation are present in the periventricular and subcortical white matter bilaterally consistent with small vessel ischemic disease. Generalized cerebral atrophy with commensurate enlargement of the ventricles, sulci, and cisterns is also present. There is no acute intracranial hemorrhage or evidence of acute territorial infarction. No shift of the midline structures, mass effect, or extra-axial abnormalities are shown. Atherosclerotic calcifications are present in the intracranial segments of the internal carotid arteries. Imaged portions of the paranasal sinuses and mastoid air cells are clear. The orbits appear normal. There are no acute fractures of the calvaria or scalp swelling. Impression: No acute intracranial hemorrhage, no evidence of acute territorial infarction or other acute intracranial disease process. ACT 112: Negative or not required by law. Electronically signed by: Tomas Nesbitt M.D. 10/20/2021 5:26 PM Medications Administered Medication List Magnesium Sulfate/Dextrose (Magnesium Sulfate / D5w) 1 gm in 100 mls @ 100 mls/hr IV NOW STA Stop: 10/20/21 18:10 Last Admin: 10/20/21 17:39 Dose: 100 mls/hr Documented by: [id number] Discontinued Medications Sodium Chloride (Nss 1000ml) 1,000 mls @ 999 mls/hr IV .Q1H1M KAILA Stop: 10/20/21 17:15 Last Admin: 10/20/21 16:39 Dose: 999 mls/hr Documented by: [id number] Thiamine HCl 100 mg/ Syringe 10 mls @ 2 mls/min IV NOW STA Stop: 10/20/21 16:41 Last Admin: 10/20/21 17:39 Dose: 2 mls/min Documented by: [id number] Calcium Gluconate () 1,000 mg in 60 mls @ 240 mls/hr IV NOW STA Stop: 10/20/21 17:24 Last Admin: 10/20/21 17:39 Dose: 240 mls/hr Documented by: [id number] COVID-19 Results Results COVID-19 Adm Lab Results: RBC 4.41 M/uL (4.7-6.1) L 10/20/21 WBC 11.87 K/uL (4.8-10.8) H 10/20/21 Hgb 8.7 g/dL (14.0-18.0) L 10/20/21 Hct 28.2 % (42-52) L 10/20/21 Plt Count 146 K/uL (130-400) 10/20/21 Neutrophils (%) (Auto) 80.1 % 10/20/21 Lymphocytes (%) (Auto) 7.5 % 10/20/21 Monocytes # (Auto) 1.41 K/uL (0.11-0.59) H 10/20/21 Eosinophils # (Auto) 0.00 K/uL (0-0.5) 10/20/21 Immature Granulocyte % (Auto) 0.3 % 10/20/21 Neutrophils # (Auto) 9.52 K/uL (1.4-6.5) H 10/20/21 Lymphocytes # (Auto) 0.89 K/uL (1.2-3.4) L 10/20/21 Monocytes # (Auto) 1.41 K/uL (0.11-0.59) H 10/20/21 Eosinophils # (Auto) 0.00 K/uL (0-0.5) 10/20/21 Basophils # (Auto) 0.02 K/uL (0-0.2) 10/20/21 Immature Granulocyte # (Auto) 0.03 K/uL (0.00-0.02) H 10/20/21 Polychromasia 1+ 10/20/21 Hypochromasia Present 10/20/21 Poikilocytosis Present 10/20/21 Anisocytosis Present 10/20/21 Microcytosis Present 10/20/21 Na 141 mmol/L (136-145) 10/20/21 K 3.6 mmol/L (3.5-5.1) 10/20/21 Cl 106 mmol/L (98-107) 10/20/21 CO2 21 mmol/L (21-32) 10/20/21 Anion Gap 14 (3-11) H 10/20/21 BUN 24 mg/dl (6-23) H 10/20/21 Creatinine 0.96 mg/dl (0.6-1.4) 10/20/21 BUN/Creatinine Ratio 25.0 (10-20) H 10/20/21 Glucose Level 78 mg/dl (70-99(Fasting)) 10/20/21 Ca 7.8 mg/dl (8.5-10.1) L 10/20/21 Total Bilirubin 1.7 mg/dl (0.2-1.0) H 10/20/21 Direct Bilirubin 0.5 mg/dl (0-0.2) H 10/20/21 AST/SGOT 30 U/L (13-39) 10/20/21 ALT/SGPT 25 U/L (7-52) 10/20/21 Alkaline Phosphatase 64 U/L (34-104) 10/20/21 Total Protein 5.4 gm/dl (6.0-8.3) L 10/20/21 Albumin 2.5 gm/dl (3.4-5.0) L 10/20/21 Globulin 2.9 gm/dl (2.5-4.0) 10/20/21 Albumin/Globulin Ratio 0.9 (0.9-2) 10/20/21 Total CK 177 U/L (30-223) 10/20/21 INR 1.4 (0.9-1.1) H 10/20/21 SARS-CoV-2, RNA, NAAT NEGATIVE (NEGATIVE) 10/20/21 Chest X-Ray 10/20/21 Code Status & VTE Plan Code Status FULL CODE VTE Prophylaxis Plan VTE Prophylaxis will be ordered: Yes Supervising Physician Co-Signing Physician Notes Patient is a 61-year-old male with history of alcoholic cirrhosis, portal hypertension, Crohn's disease, small bowel obstruction and other medical problems was brought to ED for evaluation of altered mental status. Patient currently unable to provide any history secondary to mental status. Most of the history is obtained from ER staff, old records. Patient currently lethargic and does not follow any simple commands while in ED. As per the staff, he was found to be at his baseline 24 hours ago. He was found by his family member to be unresponsive and so was brought to ED for further evaluation. Blood work suggestive of leukocytosis 11.87, hemoglobin 8.7, hematocrit 28.2, platelet count 146K, INR 1.4, lactate 3.6, calcium 7.8, magnesium 1.0, total bilirubin 1.7, ammonia 96, troponin 23.3, albumin 2.5. TSH normal. Urinalysis, tox screen pending. CT head showed no acute intracranial hemorrhage, no evidence of acute infarct or intracranial process. Chest x-ray showed no acute process. On exam patient is thin, frail, ill-appearing, lethargic, normocephalic atraumatic, normal breath sounds, clear to auscultation, S1-S2, faint murmur, bilateral lower extremity edema present, abdomen soft, distended, nontender, bowel sounds present, unable to perform complete neurological exam. Patient is admitted for management of acute hepatic encephalopathy, suspected sepsis secondary to SBP, hypomagnesemia, severe protein calorie malnutrition. Agree with starting on lactulose, CT abdomen to rule out other etiologies, blood and urine cultures obtained. Empirically started on Rocephin. Continue thiamine, folic acid. Trend cardiac enzymes and check resting echo. Replace electrolytes as needed. Dietitian consulted. Ostomy Rn consulted as well. I personally reviewed the record. Patient is interviewed and examined at bedside. Patient's care is coordinated with Heaven Valdez PA-C. Please refer to the documentation above for details of patient's presentation and for discussion of other issues.
[2021-10-20] MEDS ORDERED: LACTULOSE 200GM/700ML WTR ENEMA PR STA (18:31)
--- NOTE | 2021-10-20 18:48 | XRay Report ---
XR chest 1V portable CLINICAL HISTORY: weakness TECHNIQUE: Single frontal radiograph of the chest was obtained. Comparison: Comparison is made to chest radiograph 02/26/2021 FINDINGS: No lines and tubes are seen. The cardiomediastinal silhouette is normal. Lungs are underinflated but clear. No evidence of pleural effusion or pneumothorax. IMPRESSION: No acute chest disease. ACT 112: Negative or not required by law. Electronically signed by: Tomas Nesbitt M.D. 10/20/2021 6:46 PM
[2021-10-20] MEDS: MAGNESIUM SULFATE / D5W 1 GM/100 ML BAG IV SCH ×2 (19:42→23:22)
[2021-10-20 20:17] LABS: Amphetamines+Metham, Urine Neg (Neg); Barbiturates, Urine Neg (Neg); Benzodiazepine, Urine Neg (Neg); Cocaine, Urine Neg (Neg); MDMA (Ecstacy), Urine Neg (Neg); Methadone, Urine Neg (Neg); Opiate, Urine Pos (Neg); Phencyclidine, Urine Neg (Neg)
[2021-10-20] MEDS ORDERED: ALUMINUM/MAGNESIUM SUSP 30 ML UDC PO PRN (20:26)
[2021-10-20] MEDS ORDERED: POLYETHYLENE (MIRALAX) 17 GM PACK PO PRN (20:26)
[2021-10-20] MEDS ORDERED: ONDANSETRON INJ 2 MG/ML 2 ML VIAL IV PRN (20:26)
[2021-10-20] MEDS ORDERED: MAGNESIUM HYDROXIDE SUSP 30 ML UDC PO PRN (20:26)
[2021-10-20] MEDS ORDERED: ACETAMINOPHEN 325 MG TAB PO PRN (20:26)
[2021-10-20 21:07] LABS: Appearance Urine Clear (Clear); Bacteria Urine Automated Negative (Negative); Bilirubin Urine 1+ (Negative); Blood Urine Negative (Negative); Color Urine Dark Yellow; Epithelial Cell Urine Auto 20-30 /lpf (0-5); Glucose Urine UA Negative (Negative); Ketones Urine Trace (Negative); Leukocyte Esterase Urine 1+ (Negative); Nitrite Urine Negative (Negative); Protein Urine Trace (Negative); RBC Urine Automated 0-4 /hpf (0-4); Specific Gravity Urine 1.021 (1.000-1.030); Urobilinogen Urine Negative (Negative)
[2021-10-20 21:16] LABS: Cast Urine Automated >30 /lpf (0-5)
[2021-10-20] MEDS: cefTRIAXone SODIUM 2,000 MG in DEXTROSE 5% 50 ML IV SCH (22:41)
[2021-10-20] MEDS ORDERED: MAGNESIUM SULFATE / D5W 1 GM/100 ML BAG IV SCH (23:30)
[2021-10-20] MEDS ORDERED: MoRPHine SULFATE 2 MG/ML CARP IV STA (23:42)
[2021-10-21] MEDS: MAGNESIUM SULFATE / D5W 1 GM/100 ML BAG IV SCH ×2 (04:34→06:31)
[2021-10-21] MEDS: LACTULOSE 200GM/700ML WTR ENEMA PR SCH ×2 (04:34→15:36)
[2021-10-21 04:44] LABS: INR 1.5 (0.9-1.1); Prothrombin Time 15.6 Seconds (9.0-12.0)
[2021-10-21 05:05] LABS: Troponin I High Sensitivity 28.1 pg/ml (0-20)
[2021-10-21 05:10] LABS: Alanine Aminotransferase 26 U/L (7-52); Albumin Globulin Ratio 0.8 (0.9-2); Albumin Level 2.4 gm/dl (3.4-5.0); Alkaline Phosphatase 68 U/L (34-104); Anion Gap 13 (3-11); Aspartate Aminotransferase 31 U/L (13-39); Bilirubin,Total 1.5 mg/dl (0.2-1.0); Blood Urea Nitrogen 28 mg/dl (6-23); Calcium 8.1 mg/dl (8.5-10.1); Carbon Dioxide 20 mmol/L (21-32); Chloride 107 mmol/L (98-107); Est GFR (African American) 95.1 ml/min; Glucose 87 mg/dl (70-99(Fasting)); Magnesium 1.6 mg/dl (1.7-2.4); Potassium 3.1 mmol/L (3.5-5.1); Sodium 140 mmol/L (136-145); Total Protein 5.4 gm/dl (6.0-8.3)
[2021-10-21 05:44] LABS: Eosinophils # (auto) 0.08 K/uL (0-0.5); Eosinophils % (auto) 0.4 %; Hematocrit (blood only) 27.5 % (42-52); Hemoglobin 8.7 g/dL (14.0-18.0); Immature Granulocytes # (auto) 0.04 K/uL (0.00-0.02); Immature Granulocytes % (auto) 0.2 %; Mean Corpuscular Hgb Conc 31.6 g/dL (32-36); Mean Corpuscular Volume 63.2 fL (80-100); Monocytes # (auto) 1.69 K/uL (0.11-0.59); Monocytes % (auto) 9.2 %; Neutrophils % (auto) 84.2 %; Platelet Count 173 K/uL (130-400); RDW Coefficient of Variation 26.5 % (11.5-14.5); RDW Standard Deviation 58.1 fL (36.4-46.3); Red Blood Count 4.35 M/uL (4.7-6.1); White Blood Count 18.41 K/uL (4.8-10.8)
[2021-10-21 06:05] LABS: Anisocytosis Present; Echinocytes 1+; Hypochromasia Present; Microcytosis Present
--- NOTE | 2021-10-21 07:40 | Hospitalist Progress Note ---
Date of Service October 21, 2021 Assessment & Plan (1) Hepatic encephalopathy: (2) Cirrhosis of liver: (3) Abdominal ascites: (4) Lactic acid acidosis: (5) Elevated troponin: (6) Chronic anemia: Plan: 61 yo M who who has significant past medical history of alcoholic cirrhosis, portal hypertension, esophageal varices, chronic anemia, severe malnutrition, ankylosing spondylitis, history of Crohn's, hx of SBO, GERD, NOLBERTO, hepatitis B, tobacco abuse, history of alcohol abuse presents to ED secondary to confusion. Hepatic encephalopathy Cirrhosis of liver Lactic acidosis Abdominal ascites Admitted to PCU Lactulose enema 2 g every 8 hours Recommend adding rifaximin when able to tolerate p.o. Repeat LFTs, INR and ammonia in a.m. - Now ammonia down to 62 urine drug tox, pt takes chronic opiates but no signs of respiratory depression blood cultures pending, urine ordered will treat with IV Rocephin for SBP prophylaxis IV Thiamine, Folic Acid and PPI while NPO Obtained Ultrasound of abdomen for ascites IMPRESSION: Moderate abdominal and pelvic ascites. CT abdomen pelvis IMPRESSION: 1. Near nondiagnostic evaluation of the abdomen and pelvis due to lack of contrast and lack of fat planes. 2. Cirrhosis. Moderate ascites. Anasarca. 3. No bowel obstruction. 4. Small bowel wall thickening. This is nonspecific although could be related to portal hypertension. 5. Small bilateral pleural effusions. Gastroenterology consulted, per their note: (pls refer to original note for further detail) Concern for possible SBP, ultrasound-guided paracentesis ordered, follow cultx, IV albumin Continue broad-spectrum antibiotics, IV PPI Troponin elevated, continue to trend, if continues to be elevated recommend cardiology consult Condition is worrisome, and family was informed WBC elevated today at 17,000, considering Zosyn instead of ceftriaxone, however patient has penicillin allergy. Will add Flagyl. We will try to avoid IV, due to fluid overload/anasarca/ascites. Patient is able to answer some questions appropriately, may tolerate p.o. Elevated troponin Likely in setting of liver disease Patient without chest pain will cycle for completeness Echo ordered and pending Hypomagnesemia - replete and monitor Hypokalemia - replete and monitor Severe malnutrition Hypoalbuminemia Consult dietitian Chronic anemia Secondary to liver disease H&H 8.7 and 28.2 Known portal hypertension and esophageal varices dvt ppx: SCD/TEDS for now in setting of liver disease Dispo: PCU PCP: Wayne Code status: FULL CODE I had a conversation today with the patient about his CODE STATUS as he was able to answer simple questions appropriately. However he did not answer me his preferences. He said that he "does understand" what I am asking. Seems like he never thought about his wishes/goals of care. We will try to reach his family, and will talk to him later again about this. Discussed this with his RN, Pauly as well, to let me know if patient comes to any decision/wants to discuss further. Admission and Anticipated Discharge Date Admission Date: October 20, 2021 Subjective Patient seen in follow-up of hepatic encephalopathy Patient is currently lying in bed, in no acute distress, however complaining of abdominal pain Patient does not open his eyes, he is however able to answer some questions appropriately Currently does not tell me any other complaints Patient is cachectic, chronically ill-appearing Abdomen is quite distended, tender to palpation, ultrasound guided paracentesis ordered by GI, concern for SBP He was evaluated by GI, given worrisome prognosis, per their note will discuss further with family goals of care I asked patient about his CODE STATUS/goals of care, and patient did not answer me. Per RN, family came to visit patient later in the day. Plan to contact family and discuss goals of care further. Review of Systems Review of Systems: Unobtainable due to cognitive status Physical Exam Physical Exam: Constitutional:Cachectic, chronically ill-appearing M in NAD (but complaining of abd. pain), able to answer simple questions Head: Normocephalic, Atraumatic, b/l temporal wasting Eyes: pt won't open his eyes ENMT: external ear and nose normal, oropharynx dry membranes Neck: trachea midline, normal visual inspection Respiratory: normal respiratory effort, lungs clear to auscultation, no wheeze, rales, rhonchi. Normal insp/exp effort, no accessory muscle use Cardiovascular: RRR, 1/6 colin cardiac apex, b/l nonpitting edema, b/l severe venous stasis changes Chest: normal inspection of chest Abdomen: +significant ascites noted, +BS, soft, tender to palp. diffusely Musculoskeletal:unable to assess strength Skin: warm, b/l significant LE venous stasis changes Neurologic:Drowsy, does not open his eyes, however able to answer simple questions. moves extremities Results & Data Results & Data ([facility]) Vital Signs (Past 12 Hours) Vital Signs Temp Pulse Pulse Resp BP BP Pulse Ox 10/21/21 03:18 36.2 C L 83 18 124/66 97 10/21/21 00:09 36.3 C L 91 H 111/68 95 10/20/21 22:46 36.6 C 16 114/56 L 98 10/20/21 20:26 36.6 C 16 114/56 L 98 10/20/21 19:40 85 14 122/74 98 Laboratory Results 10/21/21 10/21/21 10/21/21 Range/Units 04:13 04:13 04:13 WBC (4.8-10.8) K/uL RBC (4.7-6.1) M/uL Hgb (14.0-18.0) g/dL Hct (42-52) % MCV (80-100) fL MCH (25-34) pg MCHC (32-36) g/dL RDW Std Deviation (36.4-46.3) fL RDW Coeff of Ronnie (11.5-14.5) % Plt Count (130-400) K/uL Immature Gran % (Auto) % Neut % (Auto) % Lymph % (Auto) % Bradley % (Auto) % Eos % (Auto) % Baso % (Auto) % Neut # (Auto) (1.4-6.5) K/uL Lymph # (Auto) (1.2-3.4) K/uL Bradley # (Auto) (0.11-0.59) K/uL Eos # (Auto) (0-0.5) K/uL Baso # (Auto) (0-0.2) K/uL Immature Gran # (Auto) (0.00-0.02) K/uL Platelet Estimate (Normal) Polychromasia Hypochromasia Poikilocytosis Anisocytosis Microcytosis Echinocytes PT 15.6 H (9.0-12.0) Seconds INR 1.5 H (0.9-1.1) Sodium 140 (136-145) mmol/L Potassium 3.1 L (3.5-5.1) mmol/L Chloride 107 (98-107) mmol/L Carbon Dioxide 20 L (21-32) mmol/L Anion Gap 13 H (3-11) BUN 28 H (6-23) mg/dl Creatinine 1.00 (0.6-1.4) mg/dl Est Cr Clr Drug Dosing Not Reportable Est GFR ( Amer) 95.1 ml/min Est GFR (Non-Af Amer) 82.0 ml/min BUN/Creatinine Ratio 28.0 H (10-20) Glucose 87 (70-99(Fasting)) mg/dl POC Glucose (70-99) mg/dl Lactate (0.4-2.0) mmol/L Calcium 8.1 L (8.5-10.1) mg/dl Magnesium 1.6 L (1.7-2.4) mg/dl Total Bilirubin 1.5 H (0.2-1.0) mg/dl Direct Bilirubin (0-0.2) mg/dl AST 31 (13-39) U/L ALT 26 (7-52) U/L Alkaline Phosphatase 68 (34-104) U/L Ammonia 62.0 (18-72) umol/L Total Creatine Kinase (30-223) U/L Troponin I High Sens 28.1 H (0-20) pg/ml Total Protein 5.4 L (6.0-8.3) gm/dl Albumin 2.4 L (3.4-5.0) gm/dl Globulin 3.0 (2.5-4.0) gm/dl Albumin/Globulin Ratio 0.8 L (0.9-2) TSH (0.300-4.500) uIu/ml Urine Color Urine Appearance (Clear) Urine pH (4.5-7.5) Ur Specific [place] (1.000-1.030) Urine Protein (Negative) Urine Glucose (UA) (Negative) Urine Ketones (Negative) Urine Blood (Negative) Urine Nitrite (Negative) Urine Bilirubin (Negative) Urine Urobilinogen (Negative) Ur Leukocyte Esterase (Negative) Urine WBC (Auto) (0-5) /hpf Urine RBC (Auto) (0-4) /hpf U Hyaline Cast (Auto) (0-5) /lpf U Epithel Cells (Auto) (0-5) /lpf Urine Bacteria (Auto) (Negative) Urine Yeast Urine Opiates Screen (Neg) U Codeine Confrm GC/MS Ur Morphine (GC/MS) Ur Hydrocodone (GC/MS) Ur Norhydrocodone Ur Noroxycodone Urine Oxycodone (GC/MS) U Oxymorphone GC/MS Ur Methadone, Qual (Neg) Ur Hydromorphone (GC/MS) Urine Barbiturates (Neg) Ur Phencyclidine (PCP) (Neg) U Amphetamin/Meth Scrn (Neg) MDMA (Ecstasy) Screen (Neg) U Benzodiazepines Scrn (Neg) Ur Cocaine Metabolite (Neg) U Marijuana (THC) Screen (Neg) U Marijuana THC Carboxy Drug Screen Comment Ethyl Alcohol mg/dL (<10.0) mg/dl SARS-CoV-2, RNA, NAAT (NEGATIVE) Blood Type Antibody Screen 10/21/21 10/20/21 10/20/21 Range/Units 04:13 20:55 20:55 WBC 18.41 H (4.8-10.8) K/uL RBC 4.35 L (4.7-6.1) M/uL Hgb 8.7 L (14.0-18.0) g/dL Hct 27.5 L (42-52) % MCV 63.2 L (80-100) fL MCH 20.0 L (25-34) pg MCHC 31.6 L (32-36) g/dL RDW Std Deviation 58.1 H (36.4-46.3) fL RDW Coeff of Ronnie 26.5 H (11.5-14.5) % Plt Count 173 (130-400) K/uL Immature Gran % (Auto) 0.2 % Neut % (Auto) 84.2 % Lymph % (Auto) 6.0 % Bradley % (Auto) 9.2 % Eos % (Auto) 0.4 % Baso % (Auto) 0.0 % Neut # (Auto) 15.50 H (1.4-6.5) K/uL Lymph # (Auto) 1.10 L (1.2-3.4) K/uL Bradley # (Auto) 1.69 H (0.11-0.59) K/uL Eos # (Auto) 0.08 (0-0.5) K/uL Baso # (Auto) 0.00 (0-0.2) K/uL Immature Gran # (Auto) 0.04 H (0.00-0.02) K/uL Platelet Estimate (Normal) Polychromasia Hypochromasia Present Poikilocytosis Anisocytosis Present Microcytosis Present Echinocytes 1+ PT (9.0-12.0) Seconds INR (0.9-1.1) Sodium (136-145) mmol/L Potassium (3.5-5.1) mmol/L Chloride (98-107) mmol/L Carbon Dioxide (21-32) mmol/L Anion Gap (3-11) BUN (6-23) mg/dl Creatinine (0.6-1.4) mg/dl Est Cr Clr Drug Dosing Est GFR ( Amer) ml/min Est GFR (Non-Af Amer) ml/min BUN/Creatinine Ratio (10-20) Glucose (70-99(Fasting)) mg/dl POC Glucose (70-99) mg/dl Lactate (0.4-2.0) mmol/L Calcium (8.5-10.1) mg/dl Magnesium 1.2 L (1.7-2.4) mg/dl Total Bilirubin (0.2-1.0) mg/dl Direct Bilirubin (0-0.2) mg/dl AST (13-39) U/L ALT (7-52) U/L Alkaline Phosphatase (34-104) U/L Ammonia (18-72) umol/L Total Creatine Kinase (30-223) U/L Troponin I High Sens 24.4 H (0-20) pg/ml Total Protein (6.0-8.3) gm/dl Albumin (3.4-5.0) gm/dl Globulin (2.5-4.0) gm/dl Albumin/Globulin Ratio (0.9-2) TSH (0.300-4.500) uIu/ml Urine Color Urine Appearance (Clear) Urine pH (4.5-7.5) Ur Specific [place] (1.000-1.030) Urine Protein (Negative) Urine Glucose (UA) (Negative) Urine Ketones (Negative) Urine Blood (Negative) Urine Nitrite (Negative) Urine Bilirubin (Negative) Urine Urobilinogen (Negative) Ur Leukocyte Esterase (Negative) Urine WBC (Auto) (0-5) /hpf Urine RBC (Auto) (0-4) /hpf U Hyaline Cast (Auto) (0-5) /lpf U Epithel Cells (Auto) (0-5) /lpf Urine Bacteria (Auto) (Negative) Urine Yeast Urine Opiates Screen (Neg) U Codeine Confrm GC/MS Ur Morphine (GC/MS) Ur Hydrocodone (GC/MS) Ur Norhydrocodone Ur Noroxycodone Urine Oxycodone (GC/MS) U Oxymorphone GC/MS Ur Methadone, Qual (Neg) Ur Hydromorphone (GC/MS) Urine Barbiturates (Neg) Ur Phencyclidine (PCP) (Neg) U Amphetamin/Meth Scrn (Neg) MDMA (Ecstasy) Screen (Neg) U Benzodiazepines Scrn (Neg) Ur Cocaine Metabolite (Neg) U Marijuana (THC) Screen (Neg) U Marijuana THC Carboxy Drug Screen Comment Ethyl Alcohol mg/dL (<10.0) mg/dl SARS-CoV-2, RNA, NAAT (NEGATIVE) Blood Type Antibody Screen 10/20/21 10/20/21 10/20/21 Range/Units 19:32 19:32 19:32 WBC (4.8-10.8) K/uL RBC (4.7-6.1) M/uL Hgb (14.0-18.0) g/dL Hct (42-52) % MCV (80-100) fL MCH (25-34) pg MCHC (32-36) g/dL RDW Std Deviation (36.4-46.3) fL RDW Coeff of Ronnie (11.5-14.5) % Plt Count (130-400) K/uL Immature Gran % (Auto) % Neut % (Auto) % Lymph % (Auto) % Bradley % (Auto) % Eos % (Auto) % Baso % (Auto) % Neut # (Auto) (1.4-6.5) K/uL Lymph # (Auto) (1.2-3.4) K/uL Bradley # (Auto) (0.11-0.59) K/uL Eos # (Auto) (0-0.5) K/uL Baso # (Auto) (0-0.2) K/uL Immature Gran # (Auto) (0.00-0.02) K/uL Platelet Estimate (Normal) Polychromasia Hypochromasia Poikilocytosis Anisocytosis Microcytosis Echinocytes PT (9.0-12.0) Seconds INR (0.9-1.1) Sodium (136-145) mmol/L Potassium (3.5-5.1) mmol/L Chloride (98-107) mmol/L Carbon Dioxide (21-32) mmol/L Anion Gap (3-11) BUN (6-23) mg/dl Creatinine (0.6-1.4) mg/dl Est Cr Clr Drug Dosing Est GFR ( Amer) ml/min Est GFR (Non-Af Amer) ml/min BUN/Creatinine Ratio (10-20) Glucose (70-99(Fasting)) mg/dl POC Glucose (70-99) mg/dl Lactate (0.4-2.0) mmol/L Calcium (8.5-10.1) mg/dl Magnesium (1.7-2.4) mg/dl Total Bilirubin (0.2-1.0) mg/dl Direct Bilirubin (0-0.2) mg/dl AST (13-39) U/L ALT (7-52) U/L Alkaline Phosphatase (34-104) U/L Ammonia (18-72) umol/L Total Creatine Kinase (30-223) U/L Troponin I High Sens (0-20) pg/ml Total Protein (6.0-8.3) gm/dl Albumin (3.4-5.0) gm/dl Globulin (2.5-4.0) gm/dl Albumin/Globulin Ratio (0.9-2) TSH (0.300-4.500) uIu/ml Urine Color Dark Yellow Urine Appearance Clear (Clear) Urine pH 6.0 (4.5-7.5) Ur Specific [place] 1.021 (1.000-1.030) Urine Protein Trace H (Negative) Urine Glucose (UA) Negative (Negative) Urine Ketones Trace H (Negative) Urine Blood Negative (Negative) Urine Nitrite Negative (Negative) Urine Bilirubin 1+ H (Negative) Urine Urobilinogen Negative (Negative) Ur Leukocyte Esterase 1+ H (Negative) Urine WBC (Auto) 1-5 (0-5) /hpf Urine RBC (Auto) 0-4 (0-4) /hpf U Hyaline Cast (Auto) >30 H (0-5) /lpf U Epithel Cells (Auto) 20-30 H (0-5) /lpf Urine Bacteria (Auto) Negative (Negative) Urine Yeast Not Reportable Urine Opiates Screen Pos H (Neg) U Codeine Confrm GC/MS Pending Ur Morphine (GC/MS) Pending Ur Hydrocodone (GC/MS) Pending Ur Norhydrocodone Pending Ur Noroxycodone Pending Urine Oxycodone (GC/MS) Pending U Oxymorphone GC/MS Pending Ur Methadone, Qual Neg (Neg) Ur Hydromorphone (GC/MS) Pending Urine Barbiturates Neg (Neg) Ur Phencyclidine (PCP) Neg (Neg) U Amphetamin/Meth Scrn Neg (Neg) MDMA (Ecstasy) Screen Neg (Neg) U Benzodiazepines Scrn Neg (Neg) Ur Cocaine Metabolite Neg (Neg) U Marijuana (THC) Screen Pos H (Neg) U Marijuana THC Carboxy Pending Drug Screen Comment Pending Ethyl Alcohol mg/dL (<10.0) mg/dl SARS-CoV-2, RNA, NAAT (NEGATIVE) Blood Type Antibody Screen 10/20/21 10/20/21 10/20/21 Range/Units 18:19 18:00 16:35 WBC (4.8-10.8) K/uL RBC (4.7-6.1) M/uL Hgb (14.0-18.0) g/dL Hct (42-52) % MCV (80-100) fL MCH (25-34) pg MCHC (32-36) g/dL RDW Std Deviation (36.4-46.3) fL RDW Coeff of Ronnie (11.5-14.5) % Plt Count (130-400) K/uL Immature Gran % (Auto) % Neut % (Auto) % Lymph % (Auto) % Bradley % (Auto) % Eos % (Auto) % Baso % (Auto) % Neut # (Auto) (1.4-6.5) K/uL Lymph # (Auto) (1.2-3.4) K/uL Bradley # (Auto) (0.11-0.59) K/uL Eos # (Auto) (0-0.5) K/uL Baso # (Auto) (0-0.2) K/uL Immature Gran # (Auto) (0.00-0.02) K/uL Platelet Estimate (Normal) Polychromasia Hypochromasia Poikilocytosis Anisocytosis Microcytosis Echinocytes PT (9.0-12.0) Seconds INR (0.9-1.1) Sodium (136-145) mmol/L Potassium (3.5-5.1) mmol/L Chloride (98-107) mmol/L Carbon Dioxide (21-32) mmol/L Anion Gap (3-11) BUN (6-23) mg/dl Creatinine (0.6-1.4) mg/dl Est Cr Clr Drug Dosing Est GFR ( Amer) ml/min Est GFR (Non-Af Amer) ml/min BUN/Creatinine Ratio (10-20) Glucose (70-99(Fasting)) mg/dl POC Glucose (70-99) mg/dl Lactate 3.2 H* (0.4-2.0) mmol/L Calcium (8.5-10.1) mg/dl Magnesium (1.7-2.4) mg/dl Total Bilirubin (0.2-1.0) mg/dl Direct Bilirubin (0-0.2) mg/dl AST (13-39) U/L ALT (7-52) U/L Alkaline Phosphatase (34-104) U/L Ammonia (18-72) umol/L Total Creatine Kinase (30-223) U/L Troponin I High Sens (0-20) pg/ml Total Protein (6.0-8.3) gm/dl Albumin (3.4-5.0) gm/dl Globulin (2.5-4.0) gm/dl Albumin/Globulin Ratio (0.9-2) TSH (0.300-4.500) uIu/ml Urine Color Urine Appearance (Clear) Urine pH (4.5-7.5) Ur Specific [place] (1.000-1.030) Urine Protein (Negative) Urine Glucose (UA) (Negative) Urine Ketones (Negative) Urine Blood (Negative) Urine Nitrite (Negative) Urine Bilirubin (Negative) Urine Urobilinogen (Negative) Ur Leukocyte Esterase (Negative) Urine WBC (Auto) (0-5) /hpf Urine RBC (Auto) (0-4) /hpf U Hyaline Cast (Auto) (0-5) /lpf U Epithel Cells (Auto) (0-5) /lpf Urine Bacteria (Auto) (Negative) Urine Yeast Urine Opiates Screen (Neg) U Codeine Confrm GC/MS Ur Morphine (GC/MS) Ur Hydrocodone (GC/MS) Ur Norhydrocodone Ur Noroxycodone Urine Oxycodone (GC/MS) U Oxymorphone GC/MS Ur Methadone, Qual (Neg) Ur Hydromorphone (GC/MS) Urine Barbiturates (Neg) Ur Phencyclidine (PCP) (Neg) U Amphetamin/Meth Scrn (Neg) MDMA (Ecstasy) Screen (Neg) U Benzodiazepines Scrn (Neg) Ur Cocaine Metabolite (Neg) U Marijuana (THC) Screen (Neg) U Marijuana THC Carboxy Drug Screen Comment Ethyl Alcohol mg/dL < 10.0 (<10.0) mg/dl SARS-CoV-2, RNA, NAAT NEGATIVE (NEGATIVE) Blood Type Antibody Screen 10/20/21 10/20/21 10/20/21 Range/Units 16:35 15:54 15:54 WBC (4.8-10.8) K/uL RBC (4.7-6.1) M/uL Hgb (14.0-18.0) g/dL Hct (42-52) % MCV (80-100) fL MCH (25-34) pg MCHC (32-36) g/dL RDW Std Deviation (36.4-46.3) fL RDW Coeff of Ronnie (11.5-14.5) % Plt Count (130-400) K/uL Immature Gran % (Auto) % Neut % (Auto) % Lymph % (Auto) % Bradley % (Auto) % Eos % (Auto) % Baso % (Auto) % Neut # (Auto) (1.4-6.5) K/uL Lymph # (Auto) (1.2-3.4) K/uL Bradley # (Auto) (0.11-0.59) K/uL Eos # (Auto) (0-0.5) K/uL Baso # (Auto) (0-0.2) K/uL Immature Gran # (Auto) (0.00-0.02) K/uL Platelet Estimate (Normal) Polychromasia Hypochromasia Poikilocytosis Anisocytosis Microcytosis Echinocytes PT (9.0-12.0) Seconds INR (0.9-1.1) Sodium (136-145) mmol/L Potassium (3.5-5.1) mmol/L Chloride (98-107) mmol/L Carbon Dioxide (21-32) mmol/L Anion Gap (3-11) BUN (6-23) mg/dl Creatinine (0.6-1.4) mg/dl Est Cr Clr Drug Dosing Est GFR ( Amer) ml/min Est GFR (Non-Af Amer) ml/min BUN/Creatinine Ratio (10-20) Glucose (70-99(Fasting)) mg/dl POC Glucose (70-99) mg/dl Lactate (0.4-2.0) mmol/L Calcium (8.5-10.1) mg/dl Magnesium (1.7-2.4) mg/dl Total Bilirubin (0.2-1.0) mg/dl Direct Bilirubin 0.5 H (0-0.2) mg/dl AST (13-39) U/L ALT (7-52) U/L Alkaline Phosphatase (34-104) U/L Ammonia (18-72) umol/L Total Creatine Kinase (30-223) U/L Troponin I High Sens (0-20) pg/ml Total Protein (6.0-8.3) gm/dl Albumin (3.4-5.0) gm/dl Globulin (2.5-4.0) gm/dl Albumin/Globulin Ratio (0.9-2) TSH 2.247 (0.300-4.500) uIu/ml Urine Color Urine Appearance (Clear) Urine pH (4.5-7.5) Ur Specific [place] (1.000-1.030) Urine Protein (Negative) Urine Glucose (UA) (Negative) Urine Ketones (Negative) Urine Blood (Negative) Urine Nitrite (Negative) Urine Bilirubin (Negative) Urine Urobilinogen (Negative) Ur Leukocyte Esterase (Negative) Urine WBC (Auto) (0-5) /hpf Urine RBC (Auto) (0-4) /hpf U Hyaline Cast (Auto) (0-5) /lpf U Epithel Cells (Auto) (0-5) /lpf Urine Bacteria (Auto) (Negative) Urine Yeast Urine Opiates Screen (Neg) U Codeine Confrm GC/MS Ur Morphine (GC/MS) Ur Hydrocodone (GC/MS) Ur Norhydrocodone Ur Noroxycodone Urine Oxycodone (GC/MS) U Oxymorphone GC/MS Ur Methadone, Qual (Neg) Ur Hydromorphone (GC/MS) Urine Barbiturates (Neg) Ur Phencyclidine (PCP) (Neg) U Amphetamin/Meth Scrn (Neg) MDMA (Ecstasy) Screen (Neg) U Benzodiazepines Scrn (Neg) Ur Cocaine Metabolite (Neg) U Marijuana (THC) Screen (Neg) U Marijuana THC Carboxy Drug Screen Comment Ethyl Alcohol mg/dL (<10.0) mg/dl SARS-CoV-2, RNA, NAAT (NEGATIVE) Blood Type O Positive Antibody Screen NEGATIVE 10/20/21 10/20/21 10/20/21 Range/Units 15:54 15:54 15:54 WBC 11.87 H (4.8-10.8) K/uL RBC 4.41 L (4.7-6.1) M/uL Hgb 8.7 L (14.0-18.0) g/dL Hct 28.2 L (42-52) % MCV 63.9 L (80-100) fL MCH 19.7 L (25-34) pg MCHC 30.9 L (32-36) g/dL RDW Std Deviation 58.7 H (36.4-46.3) fL RDW Coeff of Ronnie 26.3 H (11.5-14.5) % Plt Count 146 (130-400) K/uL Immature Gran % (Auto) 0.3 % Neut % (Auto) 80.1 % Lymph % (Auto) 7.5 % Bradley % (Auto) 11.9 % Eos % (Auto) 0.0 % Baso % (Auto) 0.2 % Neut # (Auto) 9.52 H (1.4-6.5) K/uL Lymph # (Auto) 0.89 L (1.2-3.4) K/uL Bradley # (Auto) 1.41 H (0.11-0.59) K/uL Eos # (Auto) 0.00 (0-0.5) K/uL Baso # (Auto) 0.02 (0-0.2) K/uL Immature Gran # (Auto) 0.03 H (0.00-0.02) K/uL Platelet Estimate Decreased L (Normal) Polychromasia 1+ Hypochromasia Present Poikilocytosis Present Anisocytosis Present Microcytosis Present Echinocytes PT (9.0-12.0) Seconds INR (0.9-1.1) Sodium 141 (136-145) mmol/L Potassium 3.6 (3.5-5.1) mmol/L Chloride 106 (98-107) mmol/L Carbon Dioxide 21 (21-32) mmol/L Anion Gap 14 H (3-11) BUN 24 H (6-23) mg/dl Creatinine 0.96 (0.6-1.4) mg/dl Est Cr Clr Drug Dosing Not Reportable Est GFR ( Amer) 99.9 ml/min Est GFR (Non-Af Amer) 86.2 ml/min BUN/Creatinine Ratio 25.0 H (10-20) Glucose 78 (70-99(Fasting)) mg/dl POC Glucose (70-99) mg/dl Lactate (0.4-2.0) mmol/L Calcium 7.8 L (8.5-10.1) mg/dl Magnesium 1.0 L (1.7-2.4) mg/dl Total Bilirubin 1.7 H (0.2-1.0) mg/dl Direct Bilirubin (0-0.2) mg/dl AST 30 (13-39) U/L ALT 25 (7-52) U/L Alkaline Phosphatase 64 (34-104) U/L Ammonia 96.0 H (18-72) umol/L Total Creatine Kinase 177 (30-223) U/L Troponin I High Sens 23.3 H (0-20) pg/ml Total Protein 5.4 L (6.0-8.3) gm/dl Albumin 2.5 L (3.4-5.0) gm/dl Globulin 2.9 (2.5-4.0) gm/dl Albumin/Globulin Ratio 0.9 (0.9-2) TSH (0.300-4.500) uIu/ml Urine Color Urine Appearance (Clear) Urine pH (4.5-7.5) Ur Specific [place] (1.000-1.030) Urine Protein (Negative) Urine Glucose (UA) (Negative) Urine Ketones (Negative) Urine Blood (Negative) Urine Nitrite (Negative) Urine Bilirubin (Negative) Urine Urobilinogen (Negative) Ur Leukocyte Esterase (Negative) Urine WBC (Auto) (0-5) /hpf Urine RBC (Auto) (0-4) /hpf U Hyaline Cast (Auto) (0-5) /lpf U Epithel Cells (Auto) (0-5) /lpf Urine Bacteria (Auto) (Negative) Urine Yeast Urine Opiates Screen (Neg) U Codeine Confrm GC/MS Ur Morphine (GC/MS) Ur Hydrocodone (GC/MS) Ur Norhydrocodone Ur Noroxycodone Urine Oxycodone (GC/MS) U Oxymorphone GC/MS Ur Methadone, Qual (Neg) Ur Hydromorphone (GC/MS) Urine Barbiturates (Neg) Ur Phencyclidine (PCP) (Neg) U Amphetamin/Meth Scrn (Neg) MDMA (Ecstasy) Screen (Neg) U Benzodiazepines Scrn (Neg) Ur Cocaine Metabolite (Neg) U Marijuana (THC) Screen (Neg) U Marijuana THC Carboxy Drug Screen Comment Ethyl Alcohol mg/dL (<10.0) mg/dl SARS-CoV-2, RNA, NAAT (NEGATIVE) Blood Type Antibody Screen 10/20/21 10/20/21 10/20/21 Range/Units 15:54 15:54 15:43 WBC (4.8-10.8) K/uL RBC (4.7-6.1) M/uL Hgb (14.0-18.0) g/dL Hct (42-52) % MCV (80-100) fL MCH (25-34) pg MCHC (32-36) g/dL RDW Std Deviation (36.4-46.3) fL RDW Coeff of Ronnie (11.5-14.5) % Plt Count (130-400) K/uL Immature Gran % (Auto) % Neut % (Auto) % Lymph % (Auto) % Bradley % (Auto) % Eos % (Auto) % Baso % (Auto) % Neut # (Auto) (1.4-6.5) K/uL Lymph # (Auto) (1.2-3.4) K/uL Bradley # (Auto) (0.11-0.59) K/uL Eos # (Auto) (0-0.5) K/uL Baso # (Auto) (0-0.2) K/uL Immature Gran # (Auto) (0.00-0.02) K/uL Platelet Estimate (Normal) Polychromasia Hypochromasia Poikilocytosis Anisocytosis Microcytosis Echinocytes PT 15.1 H (9.0-12.0) Seconds INR 1.4 H (0.9-1.1) Sodium (136-145) mmol/L Potassium (3.5-5.1) mmol/L Chloride (98-107) mmol/L Carbon Dioxide (21-32) mmol/L Anion Gap (3-11) BUN (6-23) mg/dl Creatinine (0.6-1.4) mg/dl Est Cr Clr Drug Dosing Est GFR ( Amer) ml/min Est GFR (Non-Af Amer) ml/min BUN/Creatinine Ratio (10-20) Glucose (70-99(Fasting)) mg/dl POC Glucose 86 (70-99) mg/dl Lactate 3.6 H* (0.4-2.0) mmol/L Calcium (8.5-10.1) mg/dl Magnesium (1.7-2.4) mg/dl Total Bilirubin (0.2-1.0) mg/dl Direct Bilirubin (0-0.2) mg/dl AST (13-39) U/L ALT (7-52) U/L Alkaline Phosphatase (34-104) U/L Ammonia (18-72) umol/L Total Creatine Kinase (30-223) U/L Troponin I High Sens (0-20) pg/ml Total Protein (6.0-8.3) gm/dl Albumin (3.4-5.0) gm/dl Globulin (2.5-4.0) gm/dl Albumin/Globulin Ratio (0.9-2) TSH (0.300-4.500) uIu/ml Urine Color Urine Appearance (Clear) Urine pH (4.5-7.5) Ur Specific [place] (1.000-1.030) Urine Protein (Negative) Urine Glucose (UA) (Negative) Urine Ketones (Negative) Urine Blood (Negative) Urine Nitrite (Negative) Urine Bilirubin (Negative) Urine Urobilinogen (Negative) Ur Leukocyte Esterase (Negative) Urine WBC (Auto) (0-5) /hpf Urine RBC (Auto) (0-4) /hpf U Hyaline Cast (Auto) (0-5) /lpf U Epithel Cells (Auto) (0-5) /lpf Urine Bacteria (Auto) (Negative) Urine Yeast Urine Opiates Screen (Neg) U Codeine Confrm GC/MS Ur Morphine (GC/MS) Ur Hydrocodone (GC/MS) Ur Norhydrocodone Ur Noroxycodone Urine Oxycodone (GC/MS) U Oxymorphone GC/MS Ur Methadone, Qual (Neg) Ur Hydromorphone (GC/MS) Urine Barbiturates (Neg) Ur Phencyclidine (PCP) (Neg) U Amphetamin/Meth Scrn (Neg) MDMA (Ecstasy) Screen (Neg) U Benzodiazepines Scrn (Neg) Ur Cocaine Metabolite (Neg) U Marijuana (THC) Screen (Neg) U Marijuana THC Carboxy Drug Screen Comment Ethyl Alcohol mg/dL (<10.0) mg/dl SARS-CoV-2, RNA, NAAT (NEGATIVE) Blood Type Antibody Screen Medications Administered Current Inpatient Medications Acetaminophen (Acetaminophen 325 Mg Tab) 650 mg PO Q4H PRN PRN Reason: Pain or Fever Stop: 11/19/21 20:25 Al Hydrox/Mg Hydrox/Simethicone (Aluminum/Magnesium Susp 30 Ml Udc) 15 ml PO Q4H PRN PRN Reason: Dyspepsia Stop: 11/19/21 20:25 Thiamine HCl 100 mg/ Syringe 10 mls @ 2 mls/min IV QAM KAILA Stop: 11/20/21 08:59 Folic Acid 1 mg/ Syringe 10 mls @ 5 mls/min IV QAM KAILA Stop: 11/20/21 08:59 Pantoprazole Sodium 40 mg/ (Syringe) 10 mls @ 5 mls/min IV DAILY@1100 KAILA Stop: 11/20/21 10:59 Ceftriaxone Sodium 2,000 mg/ (Dextrose) 70 mls @ 100 mls/hr IV Q24H [facility]; Protocol Stop: 10/30/21 20:59 Last Infusion: 10/20/21 23:26 Dose: Infused Documented by: Sodium Chloride (Nss 1000ml) 1,000 mls @ 75 mls/hr IV .[id number] KAILA Stop: 10/21/21 09:45 Last Admin: 10/20/21 21:13 Dose: 75 mls/hr Documented by: Lactulose (Lactulose 200gm/700ml Wtr Enema) 200 gm NH Q8H KAILA Stop: 11/20/21 02:59 Last Admin: 10/21/21 04:34 Dose: 200 gm Documented by: Magnesium Hydroxide (Magnesium Hydroxide Susp 30 Ml Udc) 30 ml PO Q12H PRN PRN Reason: Constipation Stop: 11/19/21 20:25 Ondansetron HCl (Ondansetron Inj 2 Mg/Ml 2 Ml Vial) 4 mg IV Q6H PRN PRN Reason: Nausea Stop: 11/19/21 20:25 Polyethylene Glycol (Polyethylene (Miralax) 17 Gm Pack) 17 gm PO DAILY PRN PRN Reason: Constipation Stop: 11/19/21 20:25
[2021-10-21] MEDS ORDERED: POTASSIUM CHLORIDE CRTAB 20 MEQ TABCR PO STA (07:42)
[2021-10-21] MEDS: THIAMINE HCL 100 MG in SYRINGE 9 ML IV SCH (07:51)
[2021-10-21] MEDS: FOLIC ACID 1 MG in SYRINGE 9.8 ML IV SCH (07:51)
--- NOTE | 2021-10-21 08:09 | CT Scan Report ---
CT OF THE ABDOMEN AND PELVIS WITHOUT CONTRAST CLINICAL HISTORY: Abdominal pain and distention. COMPARISON STUDY: CT of the abdomen and pelvis February 26, 2021. TECHNIQUE: Axial images of the abdomen and pelvis were obtained without IV contrast. Images were revi ewed in the axial, sagittal, and coronal planes. Automated exposure control was utilized for the bassam dy. A dose lowering technique was utilized adhering to the principles of ALARA. FINDINGS: Small bilateral pleural effusions are partially imaged. This exam is significantly compromi sed by lack of contrast and lack of fat planes. No pneumatosis, free air or portal venous gas is pres ent. Moderate ascites is present. The liver is cirrhotic. Sensitivity for detection of hepatic lesion s is significantly diminished on this study but none are identified. Size of the spleen is normal. Th ere is no hydronephrosis. Pancreas is grossly unremarkable as are the adrenal glands. No evidence for a bowel obstruction. Small bowel wall thickening is noted. Moderate amount stool within the colon is present. There is anasarca. Dutton balloon within the bladder is present. Compression deformity is wi thin the lumbar spine are noted. These are similar to prior CT. Ankylosis of the sacroiliac joints is incidentally noted. IMPRESSION: 1. Near nondiagnostic evaluation of the abdomen and pelvis due to lack of contrast and lack of fat pl anes. 2. Cirrhosis. Moderate ascites. Anasarca. 3. No bowel obstruction. 4. Small bowel wall thickening. This is nonspecific although could be related to portal hypertension. 5. Small bilateral pleural effusions. ACT 112: Negative or not required by law. Electronically signed by: Raul Burkett M.D. 10/21/2021 8:07 AM
[2021-10-21] MEDS: POTASSIUM CHLORIDE / WTR 10 MEQ/100 ML PLCT IV SCH ×2 (08:10→09:09)
--- NOTE | 2021-10-21 08:32 | Ultrasound Report ---
US abdomen ltd ascites CLINICAL HISTORY: Evaluate for ascites as seen on CT TECHNIQUE: Real-time grayscale sonographic images of the 4 quadrants of the abdomen were obtained. Comparison: CT of the abdomen and pelvis from 10/20/2021 FINDINGS: There is fluid seen in all 4 quadrants characteristic of moderate ascites is seen on CT. IMPRESSION: Moderate abdominal and pelvic ascites. ACT 112: Negative or not required by law. Electronically signed by: Sebastián Aburto M.D. 10/21/2021 8:31 AM
--- NOTE | 2021-10-21 10:40 | Gastrointestinal Consultation ---
Date of Consultation October 21, 2021 Assessment & Plan (1) Cirrhosis of liver: (2) Crohns disease: (3) AMS (altered mental status): Pt is a 61 yo male, w hx of Crohn's disease, ELIAN/ANG cirrhosis (MELD 13) complicated by esophageal, gastric varices, anemia, ascites, portal HTN who was admitted with AMS. Workup + leukocytosis w elevated lactate, elevated ammonia and troponin levels. Renal and liver function tests, as well as blood ct at baseline. CXR, Head CT wo acute finding. Blood and urine cx pending. Utox + for opiates and marijuana, ETOH negative. Abd imaging + moderate ascites w abd tender to palpation. DDx: Hepatic encephalopathy w possible SBP? - Correct electrolyte imbalance - Continue Ceftriaxone IV coverage for now - US paracentesis w fluid analysis, cx and Albumin IV repletion - Lactulose enema 300mL q8hrs - IVF and FA/B12 support - Continue PPI IV - Trend Troponin and if continues to be elevated, recommend Cardiology consult - Vp Purchasing consulted already - Will discuss with family about plans and goals of care Supervising Physician Co-Signing Physician Notes I have personally seen and examined the patient with EV Hunter. Her note reflects my exam and findings. I agree with her impression and plan. Cont to find source of infection, getting paracentesis today. Cont broad spectrum antibiotics. Condition is worrisome, family informed. Beni Clark M.D. History of Present Illness Reason for Consultation: Hepatic encephalopathy Requesting Physician: Dr. Davon Vásquez Attending Physician: Dr. Beni Clark History of Present Illness Pt is a 61 yo male w PMHx of ELIAN/ANG complicated by portal HTN, esophageal and gastric varices, anemia, malnutrition, ankylosing spondylitis, Crohn's, GERD, hx of SBO, Hep B who was brought by EMS after found to be unresponsive by family member. Chart reviewed, pt is confused and unable to provide history. He was seen in normal state about 24hrs prior to admission. Workup at time of admission showed leukocytosis w elevated lactate and ammonia, troponin levels. H/H at baseline. CT head and CXR wo acute findings. US and non contrasted CT abd/pelvis w sign of moderate ascites and anasarca. Last EGD and colonoscopy in 02/2021 reviewed. Allergies Allergy/AdvReac Type Severity Reaction Status Date / Time adalimumab Allergy Severe LEGS & Verified 10/20/21 17:52 FEET SWELLED, ABCESS ON ANKLE etanercept Allergy Severe SEVERE Verified 10/20/21 17:52 CUTANEOUS LOCAL REACTION tromethamine Allergy Severe RASH Verified 10/20/21 17:52 bee venom protein (honey bee) Allergy Intermediate PASSED OUT Verified 10/20/21 17:52 benzyl alcohol Allergy Intermediate RASH Verified 10/20/21 17:52 mouse protein Allergy Intermediate FACE AND Verified 10/20/21 17:52 MOUTH SWELL Penicillins Allergy Intermediate PASSED OUT Verified 10/20/21 17:52 secukinumab Allergy Intermediate FACE AND Verified 10/20/21 17:52 MOUTH SWELL shellfish derived Allergy Intermediate HYPERTENSION-CLAMS Verified 10/20/21 17:52 & CRABSS sorbitan esters Allergy Intermediate FACE AND Verified 10/20/21 17:52 MOUTH SWELL varenicline AdvReac Intermediate VEINS IN Verified 10/20/21 17:52 FEET BLEW Home Medications Medication Instructions Recorded Confirmed Type oxycodone 5 mg tablet 7.5 mg PO QID PRN 03/16/18 10/20/21 History pantoprazole 40 mg tablet,delayed 40 mg PO QAM 03/16/18 10/20/21 History release thiamine HCl (vitamin B1) 100 mg 100 mg PO QAM 09/05/19 10/20/21 History tablet (Vitamin B-1) folic acid 1 mg tablet 1 mg PO DAILY 02/26/21 10/20/21 History spironolactone 50 mg tablet 100 mg PO QAM 02/26/21 10/20/21 History ciprofloxacin HCl 500 mg tablet 500 mg PO QAM 03/01/21 10/20/21 History atenolol 25 mg tablet 25 mg PO DAILY 10/20/21 10/20/21 History bisacodyl 5 mg tablet 5 mg PO DAILY PRN 10/20/21 10/20/21 History ferrous gluconate 236 mg (27 mg 236 mg PO Q OTHER DAY 10/20/21 10/20/21 History iron) tablet furosemide 20 mg tablet 20 mg PO DAILY 10/20/21 10/20/21 History nicotine (polacrilex) 4 mg gum 4 mg BUCCAL TID PRN 10/20/21 10/20/21 History polyethylene glycol 3350 17 17 g PO DAILY 10/20/21 10/20/21 History gram/dose oral powder (Miralax) Patient History Medical History Anemia Ankylosing spondylitis Chronic anemia Cirrhosis of liver Crohns disease Encounter for pre-operative examination Esophageal varices with banding GERD (gastroesophageal reflux disease) Hypertension BP med stopped while hospitalized with anemia recently at [facility] -- pt unsure if needs to restart or not (was taking atenolol) Mitral valve prolapse ?pt states some providers say he does, some say he doesnt--no bulb planter Peritonitis with abscess of intestine hx - reports abscess drained [facility] 2018 Rheumatoid arthritis Surgical History History of abdominal paracentesis History of bunionectomy History of colonoscopy most recent 08/2018 [facility] History of esophagogastroduodenoscopy (EGD) History of hammertoe correction History of repair of hiatal hernia History of right inguinal hernia repair had 1 umbilical hernia repair at same time History of tonsillectomy and adenoidectomy History of tooth extraction wisdom teeth History of umbilical hernia repair ruptured and repaired 07/2017 Family History Mother Family history of reaction to anesthesia "slow to wake up a couple different times" Father Lung cancer Social History Smoking Status: Current every day smoker Tobacco Type: Cigarettes Cigarettes Per Day: 5; Second Hand Exposure: No; Do You Dip or Chew Tobacco: No; Hx Alcohol Use: No Hx Substance Use: Yes Last Used Substance: Days (ago) Last Used Substance Other:: nightly use Substance Use Type Other:: medical marijuana Preferred Language: [place]an Communication Ability: Impaired Fish Bin Tender Required: No Beliefs That Will Affect Care: None Current Living Situation: Alone Current Living Situation Comment: lives in a trailer Feels Safe at Home: Declines to Answer Assistive Devices: Cane Review of Systems Review of Systems: Unobtainable due to reduced consciousness Physical Exam Constitutional: + ill appearing and + cachectic ENMT: external ear and nose normal, oropharynx normal Respiratory: Diminished bilateral bases, no respiratory distress Cardiovascular: RRR, no murmur or gallops; + generalized edema bilateral LE Gastrointestinal (Abdomen): Distended, pt is grimacing and states his abd is painful on palpation Skin: no rashes, warm and dry + jaundice Results & Data ([facility]) Vital Signs (Past 12 Hours) Vital Signs Temp Pulse Resp BP Pulse Ox 10/21/21 03:18 36.2 C L 83 18 124/66 97 10/21/21 00:09 36.3 C L 91 H 111/68 95 10/20/21 22:46 36.6 C 16 114/56 L 98
[2021-10-21] MEDS ORDERED: LACTULOSE 200GM/700ML WTR ENEMA PR SCH (10:45)
[2021-10-21] MEDS: PANTOprazole 40 MG in SYRINGE 0 ML IV SCH (11:02)
[2021-10-21] MEDS: ALBUMIN HUMAN 25% 12.5 GM/50 ML VIAL IV SCH ×2 (11:03→15:10)
--- NOTE | 2021-10-21 15:17 | Ultrasound Report ---
PROCEDURE: Ultrasound-Guided Diagnostic/Therapeutic Paracentesis CLINICAL HISTORY: ascites MEDICATIONS: Subcutaneous Lidocaine 2%. PROCEDURE: The procedure itself was explained to the patient carefully. The patient was brought into the IR suite and a time-out was performed. The patient was positioned supine on the table. Preliminar y ultrasound of the abdomen was performed to determine a safe needle entry site. The most appropriat e approach for safe needle entry site was planned and the site for puncture was marked. The right low er quadrant was prepped and draped in the usual sterile fashion. Subcutaneous 2% lidocaine was used f or local anesthesia along the expected needle tract. Under ultrasound-guidance, an 5 [place] [employer] needle-sheath was inserted carefully into the peritoneal space towards the abdominal ascites fluid collection. The needle was removed and the sheath was conn ected to tubing and a vacuum suction device. A total of 100 cc of serous ascites was aspirated. The s josefa was removed and a sterile dressing applied. The patient tolerated the procedure well without im mediate complications. Sample of ascites was sent for analysis. IMPRESSION: Ultrasound-guided diagnostic paracentesis. Electronically signed by: Tomas Nesbitt M.D. 10/21/2021 3:15 PM
[2021-10-21 16:12] LABS: Albumin Peritoneal Fluid < 1.5 gm/dl; Total Protein Peritoneal Fluid < 3.0 gm/dl
[2021-10-21 17:03] LABS: Appearance Peritoneal Fluid HAZY; Basophils, Fluid 0 %; Color Peritoneal Fluid AMBER; Eosinophils, Fluid 0 %; Lymphocytes, Fluid 8 %; Mono,Macrophage,Mesothelial 18 %; Neutrophils, Fluid 74 %; RBC Peritoneal Fluid (A) 5000 /uL; WBC Peritoneal Fluid (A) 52 /ul (0-300)
[2021-10-21] MEDS ORDERED: oxyCODONE HCL IR 5 MG TAB (IMMEDIATE RELEASE) PO STA (20:28)
[2021-10-21] MEDS ORDERED: metroNIDAZOLE Susp 50mg/ml PO SCH (21:00)
[2021-10-21] MEDS ORDERED: MoRPHine SULFATE 2 MG/ML CARP IV STA (21:24)
[2021-10-21] MEDS: cefTRIAXone SODIUM 2,000 MG in DEXTROSE 5% 50 ML IV SCH (22:42)
[2021-10-21] MEDS ORDERED: LEVALBUTEROL HCL 1.25 MG/3 ML NEB NEB STA (22:59)
[2021-10-21] MEDS ORDERED: FUROSEMIDE INJ 20 MG/2 ML VIAL IV ONE (23:00)
[2021-10-21] MEDS ORDERED: NOREPINEPHRINE/D5W 4 MG/250 ML IV ONE (23:14)
--- NOTE | 2021-10-21 23:23 | Emergency Department Note ---
ED Visit Note I was called to the intensive care unit to intubate the patient. The patient reportedly had become hypoxemic. Consent was implied given the patient's respiratory distress and hypoxemic respiratory failure. Postintubation chest x-ray was reviewed shows no obvious pneumothorax. Additional care deferred to the inpatient team. Procedures: Endotracheal Intubation performed by Dr. Bell Indication: Hypoxemic respiratory failure. The patient was on 100% oxygen via NRB prior to the procedure. Suction, airway equipment, RSI drugs, respiratory equipment, and appropriate personnel were prepared prior to the initiation of the procedure. A time out was taken. Induction was performed with 18 mg of etomidate followed by 75 mg of rocuronium. After observing the clinical benefit of the medications, the airway was easily visualized utilizing a Low Pro S4. A 7.0 size ETT tube was placed atraumatically to 24 cm using standard technique. The cuff inflated without signs of malfunction. There were bilateral breath sounds, positive colormetric change, no gastric sounds, a good capnography waveform, and post procedure pulse oximetry was 100%. Post intubation sedation deferred to the intensive care team. There were no complications.
[2021-10-21] MEDS ORDERED: RAPID SEQUENCE INDUCTION BAG ONE (23:29)
[2021-10-21] MEDS: NOREPINEPHRINE/D5W 4 MG/250 ML PLCT IV SCH (23:36)
[2021-10-21 23:56] LABS: iSTAT Allen Test Pass; iSTAT Art Bld Gas pCO2 Correct 66 mmHg (35-46); iSTAT Arterial Blood Gas HCO3 23 meg/L (19-24); iSTAT Arterial Blood Gas pCO2 68 mmHg (35-46); iSTAT Arterial Blood Gas pH 7.13 (7.35-7.45); iSTAT Arterial Blood Gas pO2 327 mmHg (80-95); iSTAT Arterial Blood Gas pO2 C 324; iSTAT Carbon Dioxide 25 mmol/L (24-31); iSTAT FiO2 100 %; iSTAT Hematocrit 29 % (42-52); iSTAT Hemoglobin 9.9 g/dl (14.0-18.0); iSTAT Potassium 2.9 mmol/L (3.3-5.0); iSTAT Site R Radial; iSTAT Sodium 144 mmol/L (135-144)
[2021-10-21 23:57] LABS: Nucleated RBC # (auto) 0.12 K/uL (0-0); Nucleated RBC % (auto) 0.7 %
[2021-10-22 00:04] LABS: Hematocrit (blood only) 29.3 % (42-52); Hemoglobin 8.8 g/dL (14.0-18.0); Mean Corpuscular Hemoglobin 19.6 pg (25-34); Mean Corpuscular Volume 65.3 fL (80-100); RDW Coefficient of Variation 27.3 % (11.5-14.5); RDW Standard Deviation 61.4 fL (36.4-46.3); Red Blood Count 4.49 M/uL (4.7-6.1); White Blood Count 16.18 K/uL (4.8-10.8)
[2021-10-22 00:08] LABS: Albumin Level 2.4 gm/dl (3.4-5.0); BUN Creatinine Ratio 25.6 (10-20); Bilirubin,Total 1.4 mg/dl (0.2-1.0); Calcium 7.7 mg/dl (8.5-10.1); Creatinine Clr Calc Pharmacy 51.6 ml/min; Est GFR (African American) 69.9 ml/min; Est GFR (Non-African American) 60.3 ml/min; Globulin 2.3 gm/dl (2.5-4.0); Magnesium 1.8 mg/dl (1.7-2.4); Potassium 3.2 mmol/L (3.5-5.1); Total Protein 4.7 gm/dl (6.0-8.3)
--- NOTE | 2021-10-22 00:14 | Critical Care Consultation ---
Date of Consultation October 22, 2021 Assessment & Plan (1) Admitted to intensive care unit: Reason Critically Ill: 61-year-old male with a significant past medical history of alcoholic cirrhosis admitted with altered mental status and hyperammonemia and hepatic encephalopathy progressing to rapid decline in mental status and need for intubation for respiratory failure and airway protection. Shortly after the patient had been intubated by emergency room provider, it was reported by nursing staff that there was concern that the patient had received an inappropriate medication and intravenous form. Apparently, the patient had been receiving oral Flagyl in liquid form. Apparently, this liquid Flagyl was somehow administered via IV approximately 10 minutes prior to patient's rapid decline. At this point, I did discuss this with unit nursing ingot supervisor as well as clinical coordinator. They were tasked with confirming the suspicion and addressing concerns from nursing perspective. I did immediately reach out to pharmacy as well to obtain MSDS or list of ingredients to present to poison control. I did reach out to my attending, and eventually did speak with an attending while continuing diagnostic workup. Orders placed for CTA head, CTA chest, CT abd/pelvis. Concerningly, the patient was noted to develop increasing bleeding from previous IV sticks as well as from his paracentesis site from earlier in the day. After bedside assessment, orders placed for coagulation panel to workup for possible DIC. I did discuss this with my attending who recommended aggressive dose of IV Kcentra as the patient was now losing IV sites and would require CVL placement. Orders placed for Kcentra to be administered prior to CVL attempt. CT studies obtained, and while the patient was returning from CT, I did receive a return call from Poison Control. The case was reviewed with a Dr Elise, who recommends "reactionary care" at this time. There is no reported contraindication to any medical therapies at this point. 0135: After relative stabilization, I did feel it appropriate to attempt to contact patient's point of contact to provide update. Patient's sister, Cele Zazueta ([phone]) did answer this time (previous attempts at reaching her had been unsuccessful). I did provide update that her brother had hi transferred to the ICU. I explained the abrupt change in status and need for emergency intubation. Additionally, I did discuss with her that there was a concern for a possible medication error that may have contributed to the patient's decline as well. I offered encouragement that we will continue to be evaluating patient for causes of changes in status and treating as aggressively as possible. Spoke with Dr. Nugent at length about case, he will present to the ICU for CVL placement in anatomically challenging patient with bleeding concerns. NEURO - * CAM ICU: Unable to asses. * AMS: * Multifactorial in the cirrhotic patient with hepatic encephalopathy and acute hypoxemia. * intubation for airway management. * CT/CTA to evaluate for CVA/embolic phenomenon in the setting of erroneous IV medication administration. CARDIAC/VASCULAR - * Hypotension: * Multifactorial in the cirrhotic patient w/ new AMS, s/p sedation, etc. * Levophed added now. * Will avoid significant IVF in the patient w/ profound anasarca. * As patient is a liver failure patient, he may benefit from exogenous vasopressin. * Monitor on telemetry. RESPIRATORY - * Acute Hypoxic Respiratory Failure: * Concerning in the patient who received an IV dose of a PO medication. * Concern for essentially embolization of the pulmonary system s/p drug administration resulting in initial profound hypoxemia and subsequent worsening AMS. * Patient saturating better now on 100% FiO2. * Obtain CTA to assess vasculature as well as possibility of pulmonary infarcts. * Patient noted to desat into the 80s earlier in the night. Certainly patient may have degree of aspiration which could contribute as well. * Obtain serial ABGs. * Titrate down ventilator settings as tolerated. GI/NUTRITION - * Alcoholic Cirrhosis, Esophageal Varices, Hepatic Encephalopathy: * Continue w/ current course of lactulose/xifaxan * Will hold on OGT in the setting of varices. * Appreciate GI guidance. RENAL/LYTES - * No initial concerning electrolyte derangements. * Monitor closely, replace appropriately. - * Dutton in place - Strict I&Os. ENDO - * No h/o DM or Thyroid Dz * BSGs per unit protocol. ISS --> gtt per unit policy. HEME - * Acute bleeding: * Concerning oozing/bleeding from IV sites/paracentesis site. * Will order coag panel to assess possible DIC. * This is certainly a possibility given above mentioned IV scenario in the cirrhotic patient. * Received IV Kcentra with concerns for bleeding and need for CVL placement. ID - * SBP coverage: * Currently on Flagyl/Rocephin. * Will broaden antibiotic coverage for greater pulmonary coverage with concerns for possible aspiration event. * Check PCT LINES/IV ACCESS - * PIVs x2 * ETT * Dutton DVT PROPHYLAXIS - * Hold on chemoprophylaxis in the setting of bleeding and chronic anemia. * SCDs I have personally spent 90 minutes of critical care time in the direct management of this patient. This is a life/limb threatening event. This includes time spent evaluating patient, direct bedside care, chart review, placing orders, interpretation of diagnostic studies, discussion with consultants, patient, and family members, as well as other required patient management activities. This time is exclusive of all separately billable procedures, and teaching time and separate from and in addition to any other critical care service time. Thank you for allowing us to participate in the care of this patient. Please refer to my attending physician's documentation for any further recommendations. (2) AMS (altered mental status): (3) Respiratory failure: (4) Hepatic encephalopathy: (5) Cirrhosis of liver: (6) Esophageal varices: Supervising Physician Co-Signing Physician Notes Patient was seen and examined with the physician family and divorce legal assistant. Agree with the assessment and plan aside for any additions/exceptions: Patient appears to be in DIC possibly from sepsis and medication related error. This is currently being corrected with cryoprecipitate and FFP. Patient also being transfused 1 unit of packed RBCs. He has oozing from several IV sites and there was concern for blood coming from his mouth. We will continue to trend DIC labs, LFTs and ABG. Continue empiric steroids and broad-spectrum antibiotics. Patient also with bilateral pleural effusions and and ascites. SBP not seen on previous tap. We will send repeat blood cultures given the medication error. Patient sister who is the POA was extensively updated. She is uncertain whether the patient will want to be a full code and notes that she thinks he would want to be a DNR. She is going to get back to us. Poison control has been alerted of the issues. We will continue supportive management at this time. I also discussed the case extensively with nursing and hospitalist. Continue to maintain mean arterial pressure above 65 with Levophed and vasopressin. We will give doses of albumin to support volume status. History of Present Illness Attending Physician: Davon Vásquez MD History of Present Illness Patient is a 61-year-old male with a significant past medical history of alcoholic cirrhosis, portal hypertension, esophageal varices, diarrhea, malnutrition, Crohn's, hepatitis B, and tobacco abuse who was admitted to this institution on 10/20 secondary to hepatic encephalopathy. Patient's ammonia level was found to be significantly elevated. The patient received lactulose enemas as well as rifaximin. Patient covered empirically for SBP in the setting of leukocytosis. Patient also receiving p.o. Flagyl. Unfortunately, patient was noted to have an abrupt change in respiratory status resulting in profound hypoxemia with saturations in the 40s. Patient was made a rapid response on the floor. He had been placed on a BiPAP and was subsequently transferred to the ICU where he was promptly intubated by an emergency room colleague. It was later noted by nursing ingot supervisor staff that the patient had received a dose of intravenous Flagyl which was actually an orally prepared dose. This dose was received approximately 10 minutes prior to the profound hypoxemia and worsening mental status. Unable to obtain history of present illness secondary to altered mental status. Allergies Allergy/AdvReac Type Severity Reaction Status Date / Time adalimumab Allergy Severe LEGS & Verified 10/20/21 17:52 FEET SWELLED, ABCESS ON ANKLE etanercept Allergy Severe SEVERE Verified 10/20/21 17:52 CUTANEOUS LOCAL REACTION tromethamine Allergy Severe RASH Verified 10/20/21 17:52 bee venom protein (honey bee) Allergy Intermediate PASSED OUT Verified 10/20/21 17:52 benzyl alcohol Allergy Intermediate RASH Verified 10/20/21 17:52 mouse protein Allergy Intermediate FACE AND Verified 10/20/21 17:52 MOUTH SWELL Penicillins Allergy Intermediate PASSED OUT Verified 10/20/21 17:52 secukinumab Allergy Intermediate FACE AND Verified 10/20/21 17:52 MOUTH SWELL shellfish derived Allergy Intermediate HYPERTENSION-CLAMS Verified 10/20/21 17:52 & CRABSS sorbitan esters Allergy Intermediate FACE AND Verified 10/20/21 17:52 MOUTH SWELL varenicline AdvReac Intermediate VEINS IN Verified 10/20/21 17:52 FEET BLEW Home Medications Medication Instructions Recorded Confirmed Type oxycodone 5 mg tablet 7.5 mg PO QID PRN 03/16/18 10/20/21 History pantoprazole 40 mg tablet,delayed 40 mg PO QAM 03/16/18 10/20/21 History release thiamine HCl (vitamin B1) 100 mg 100 mg PO QAM 09/05/19 10/20/21 History tablet (Vitamin B-1) folic acid 1 mg tablet 1 mg PO DAILY 02/26/21 10/20/21 History spironolactone 50 mg tablet 100 mg PO QAM 02/26/21 10/20/21 History ciprofloxacin HCl 500 mg tablet 500 mg PO QAM 03/01/21 10/20/21 History atenolol 25 mg tablet 25 mg PO DAILY 10/20/21 10/20/21 History bisacodyl 5 mg tablet 5 mg PO DAILY PRN 10/20/21 10/20/21 History ferrous gluconate 236 mg (27 mg 236 mg PO Q OTHER DAY 10/20/21 10/20/21 History iron) tablet furosemide 20 mg tablet 20 mg PO DAILY 10/20/21 10/20/21 History nicotine (polacrilex) 4 mg gum 4 mg BUCCAL TID PRN 10/20/21 10/20/21 History polyethylene glycol 3350 17 17 g PO DAILY 10/20/21 10/20/21 History gram/dose oral powder (Miralax) Patient History Medical History Anemia Ankylosing spondylitis Chronic anemia Cirrhosis of liver Crohns disease Encounter for pre-operative examination Esophageal varices with banding GERD (gastroesophageal reflux disease) Hypertension BP med stopped while hospitalized with anemia recently at [facility] -- pt unsure if needs to restart or not (was taking atenolol) Mitral valve prolapse ?pt states some providers say he does, 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 Peritonitis with abscess of intestine hx - reports abscess drained [facility] 2018 Rheumatoid arthritis Surgical History History of abdominal paracentesis History of bunionectomy History of colonoscopy most recent 08/2018 [facility] History of esophagogastroduodenoscopy (EGD) History of hammertoe correction History of repair of hiatal hernia History of right inguinal hernia repair had 1 umbilical hernia repair at same time History of tonsillectomy and adenoidectomy History of tooth extraction wisdom teeth History of umbilical hernia repair ruptured and repaired 07/2017 Family History Mother Family history of reaction to anesthesia "slow to wake up a couple different times" Father Lung cancer Social History Smoking Status: Current every day smoker Tobacco Type: Cigarettes Cigarettes Per Day: 5; Second Hand Exposure: No; Do You Dip or Chew Tobacco: No; Hx Alcohol Use: No Hx Substance Use: Yes Last Used Substance: Days (ago) Last Used Substance Other:: nightly use Substance Use Type Other:: medical marijuana Preferred Language: [place]ese Communication Ability: Impaired Vegetable Trimmer Required: No Beliefs That Will Affect Care: None Current Living Situation: Alone Current Living Situation Comment: lives in a trailer Feels Safe at Home: Declines to Answer Assistive Devices: Cane Review of Systems Review of Systems: Unobtainable due to cognitive status and Unobtainable due to reduced consciousness Physical Exam Physical Exam: VITAL SIGNS - Vital signs and nursing notes were reviewed. GENERAL - 61-year-old male appearing much older than his stated age who is in active extremis. SKIN - Sequela of chronic hepatic insufficiency appreciated. HEAD - NC/AT. EYES - Pupils equal and reactive bilaterally. Sclera anicteric. EARS - No deformities of external structures noted on gross examination bilaterally. NOSE - Midline and without cyanosis. No epistaxis or purulent drainage noted. MOUTH/OROPHARYNX - Without perioral cyanosis. NECK - Kyphosis with limited ROM. LUNGS - Kyphotic chest wall. Decreased breath sounds bilaterally. CARDIAC - RRR with S1/S2. No murmur, rubs, or gallops appreciated. ABDOMEN - Abdominal contour protuberant without pulsations or visible masses. Ascites noted. EXTREMITIES -hemosiderin like staining noted to the bilateral lower extremities. NEUROLOGIC - Obtunded. No response to painful stimuli. Snoring respirations. Results & Data Results & Data ([facility]) Vital Signs (Past 12 Hours) Vital Signs Temp Pulse Pulse Resp BP Pulse Ox 10/21/21 23:20 111 H 27 H 96 10/21/21 23:01 36.4 C L 92 H 25 H 92/57 L 63 L 10/21/21 20:21 36.3 C L 102 H 24 105/61 92 10/21/21 16:05 98 H 10/21/21 15:16 36.4 C L 95 H 20 108/69 91 Coding Level of Care Code Critical Care 1st 30-74 mins Diagnoses Admitted to intensive care unit Z78.9 AMS (altered mental status) R41.82 Respiratory failure J96.90 Hepatic encephalopathy K72.90 Cirrhosis of liver K74.60 Esophageal varices I85.00 Time Spent (min) 90
[2021-10-22 00:22] LABS: Troponin I High Sensitivity 124.4 pg/ml (0-20)
[2021-10-22] MEDS ORDERED: PROTHROMBIN COMP CONC- KCENTRA 3,000 UNITS in SYRINGE 0 ML IV SCH (00:30)
[2021-10-22 00:42] LABS: Platelet Count 90 K/uL (130-400)
[2021-10-22 00:48] LABS: Nucleated RBC # (auto) 0.08 K/uL (0-0); Nucleated RBC % (auto) 0.6 %
[2021-10-22 00:48] LABS: ALC (manual) 1.15 K/uL (1.2-3.4); ANC (manual) 14.45 K/uL (1.4-6.5); Acanthocytes 1+; Echinocytes 1+; Eosinophils # (manual) 0.15 K/uL (0-0.5); Eosinophils % (manual) 0.9 %; Giant Platelets 1+; Hypochromasia Present; Lymphocytes # (manual) 1.15 K/uL (1.2-3.4); Lymphocytes % (manual) 7.1 %; Microcytosis Present; Monocytes # (manual) 0.29 K/uL (0.11-0.59); Monocytes % (manual) 1.8 %; Myelocytes # (manual) 0.15 K/uL (0-0); Myelocytes % (manual) 0.9 %; Neutrophils # (manual) 14.45 K/uL (1.4-6.5); Neutrophils % (manual) 89.3 %; Polychromasia 1+
[2021-10-22 01:02] LABS: Hematocrit (blood only) 29.5 % (42-52); Hemoglobin 8.8 g/dL (14.0-18.0); Mean Corpuscular Hemoglobin 19.4 pg (25-34); Mean Corpuscular Volume 65.1 fL (80-100); RDW Coefficient of Variation 27.3 % (11.5-14.5); RDW Standard Deviation 61.4 fL (36.4-46.3); Red Blood Count 4.53 M/uL (4.7-6.1); White Blood Count 13.29 K/uL (4.8-10.8)
[2021-10-22 01:07] LABS: Mean Corpuscular Hgb Conc 29.8 g/dL (32-36); Platelet Count 99 K/uL (130-400)
[2021-10-22 01:09] LABS: Acanthocytes 1+; Echinocytes 1+; Eosinophils # (auto) 0.13 K/uL (0-0.5); Hypochromasia Present; Immature Granulocytes # (auto) 0.11 K/uL (0.00-0.02); Immature Granulocytes % (auto) 0.8 %; Lymphocytes % (auto) 3.8 %; Microcytosis Present; Monocytes % (auto) 1.5 %; Neutrophils # (auto) 12.35 K/uL (1.4-6.5); Neutrophils % (auto) 92.9 %; Ovalocytes 1+; Platelet Estimate Decreased (Normal); Polychromasia 1+
[2021-10-22 01:50] LABS: D Dimer > 35200 ug/L FEU (0-500)
[2021-10-22] MEDS ORDERED: OPTIRAY 320 125ml IV ONE (02:06)
[2021-10-22 02:07] LABS: Fibrinogen < 50 mg/dl (184-400)
[2021-10-22] MEDS: methylPREDNISolone 125 MG in SYRINGE 0 ML IV SCH ×4 (02:34→19:44)
[2021-10-22] MEDS: LACTULOSE 200GM/700ML WTR ENEMA PR SCH ×3 (03:02→19:22)
[2021-10-22] MEDS ORDERED: STAT IV Infusion **Titration per Protocol STA ×3 (03:12→21:12)
--- NOTE | 2021-10-22 03:31 | Procedure Note ---
Procedure Note Date of Service October 22, 2021 Note FEMORAL CENTRAL LINE PROCEDURE NOTE: Procedure: Femoral Central Line Placement Indication: Central Drug Administration, Poor Venous Access, Multiple Lab Draws Necessary, etc. Anesthesia: 8 mL lidocaine 1% Procedure was done emergently due to need for vasoactive medications and need for IV access. Timeout performed prior to the procedure. A time-out was completed verifying correct patient, procedure, site, positioning, and implants(s) or special equipment if applicable. Patients right groin was cleansed and draped in the typical sterile fashion using Chloraprep. The Femoral Vein and Femoral Artery were identified using ultrasound. The superficial tissue was anesthetized using 8 mL of 1% lidocaine without epinephrine under direct visualization with the ultrasound. After adequate anesthetization was achieved, the Femoral Vein was cannulated under direct ultrasound guidance using an introducer needle on a syringe. Good venous blood return was maintained prior to removal of syringe from introducer needle. Using Seldinger Technique, a guide wire was advanced through the introducer needle without resistance. The introducer needle was removed and ultrasound images were obtained of the guide wire within the Femoral Vein and saved to the patients medical record. A small incision was made in penetrating fashion at the guide wire insertion site utilizing an 11 blade scalpel. The dilator was advanced to the vessel without resistance. The dilator was exchanged for the triple lumen catheter which was advanced into the vessel without resistance. The guide wire was removed intact from the catheter without issue. Claves were placed on each catheter tip with confirmation of good blood flow from each lumen. Each port was easily flushed with sterile saline. The catheter was placed at the hub and sutured in place. BioPatch was applied to the catheter and a sterile Tegaderm dressing was applied over the catheter with careful attention to sterility. Patient tolerated procedure well. No immediate complications were met. Images obtained are saved for permanent record. Procedural Ultrasound Guidance utilized Coding CPT Codes Tubes, Drains, and Vasc Access - Tubes, Drains, and Vasc Access: [id number] Place catheter in vein superior or inferior vena cava ([id number]) Tubes, Drains, and Vasc Access - Tubes, Drains, and Vasc Access: [id number] Ultrasonic Guide For Needle Placement ([id number]) [facility] [place]Charges) Tubes, Drains, and Vasc Access Procedure 1: Tubes, Drains, and Vasc Access: [id number] Place catheter in vein superior or inferior vena cava Procedure 2: Tubes, Drains, and Vasc Access: [id number] Ultrasonic Guide For Needle Placement
[2021-10-22] MEDS ORDERED: fentaNYL citrate 100 MCG/2 ML VIAL ONE (03:32)
--- NOTE | 2021-10-22 03:33 | Procedure Note ---
Procedure Note Date of Service October 22, 2021 Note FEMORAL CENTRAL LINE PROCEDURE NOTE: Procedure: Right femoral arterial line Indication: Central Drug Administration, Poor Venous Access, Multiple Lab Draws Necessary, etc. Anesthesia: 8 mL lidocaine lidocaine 1% Procedure was done emergently due to profound shock and need for continuous hemodynamic monitoring. A time-out was completed verifying correct patient, procedure, site, positioning, and implants(s) or special equipment if applicable. Patients right groin was cleansed and draped in the typical sterile fashion using Chloraprep. The Femoral Vein and Femoral Artery were identified using ultrasound. The superficial tissue was anesthetized using 8 mL of 1% lidocaine without epinephrine under direct visualization with the ultrasound. After adequate anesthetization was achieved, the Femoral artery was cannulated under direct ultrasound guidance using an introducer needle on a syringe. Good venous blood return was maintained prior to removal of syringe from introducer needle. Using Seldinger Technique, a guide wire was advanced through the introducer needle without resistance. The introducer needle was removed and ultrasound images were obtained of the guide wire within the Femoral Vein and saved to the patients mi dical record. A small incision was made in penetrating fashion at the guide wire insertion site utilizing an 11 blade scalpel. The guide wire was removed intact from the catheter without issue. The catheter was attached to the arterial line set up. Good waveform was noted. Catheter was sutured at the site. BioPatch was applied to the catheter and a sterile Tegaderm dressing was applied over the catheter with careful attention to sterility. Patient tolerated procedure well. No immediate complications were met. Procedural Ultrasound Guidance utilized Coding CPT Codes Tubes, Drains, and Vasc Access - Tubes, Drains, and Vasc Access: [id number] Place Catheter In Artery ([id number]) Tubes, Drains, and Vasc Access - Tubes, Drains, and Vasc Access: [id number] Ultrasound Guidance For Vascular ([id number]) [facility] [place] Procedure Codes (Charges) Tubes, Drains, and Vasc Access Procedure 1: Tubes, Drains, and Vasc Access: [id number] Place Catheter In Artery Procedure 2: Tubes, Drains, and Vasc Access: [id number] Ultrasound Guidance For Vascular
[2021-10-22] MEDS: fentaNYL citrate 100 MCG/2 ML VIAL IV PRN ×2 (03:36→07:09)
[2021-10-22] MEDS: VASOPRESSIN 20 UNITS in 0.9 % SODIUM CHLORIDE 100 ML IV SCH ×3 (03:36→18:17)
[2021-10-22] MEDS: MIDAZOLAM HCL 1 MG/ML 2ML VIAL IV PRN ×2 (03:59→07:01)
[2021-10-22] MEDS ORDERED: VANCOMYCIN CONSULT ACTIVE PRN (03:59)
[2021-10-22] MEDS ORDERED: VANCOMYCIN HCL 1,250 MG in SODIUM CHLORIDE 0.9% 500 ML IV ONE (03:59)
[2021-10-22] MEDS ORDERED: CEFEPIME 2,000 MG in SYRINGE 0 ML IV SCH (04:00)
[2021-10-22] MEDS ORDERED: VANCOMYCIN HCL 1,250 MG in SODIUM CHLORIDE 0.9% 250 ML IV ONE (04:45)
[2021-10-22] MEDS: NOREPINEPHRINE/D5W 4 MG/250 ML PLCT IV SCH ×4 (05:35→19:05)
[2021-10-22 05:37] LABS: INR 2.2 (0.9-1.1); Prothrombin Time 22.3 Seconds (9.0-12.0)
[2021-10-22 05:46] LABS: Mean Corpuscular Hgb Conc 30.9 g/dL (32-36); Nucleated RBC # (auto) 0.09 K/uL (0-0); Nucleated RBC % (auto) 0.5 %
--- NOTE | 2021-10-22 05:53 | Electrocardiogram Report ---
Test Reason : Blood Pressure : / mmHG Vent. Rate : 104 BPM Atrial Rate : 064 BPM P-R Int : 000 ms QRS Dur : 078 ms QT Int : 360 ms P-R-T Axes : 000 -42 111 degrees QTc Int : 473 ms Poor data quality, interpretation may be adversely affected Indeterminate rhythm due to artifact. Possible sinus tachycardia. Premature ventricular complexes Left axis deviation Anteroseptal infarct (cited on or before 05-SEP-2019) Abnormal ECG When compared with ECG of 26-FEB-2021 14:19, Vent. rate has increased BY 39 BPM QRS voltage has decreased Confirmed by Kwadwo Thacker ([id number]) on 10/22/2021 5:52:59 AM Referred By: REFERRED SELF Confirmed By:Kwadwo Thacker
--- NOTE | 2021-10-22 06:04 | Electrocardiogram Report ---
Test Reason : Blood Pressure : / mmHG Vent. Rate : 093 BPM Atrial Rate : 093 BPM P-R Int : 162 ms QRS Dur : 060 ms QT Int : 332 ms P-R-T Axes : 119 -54 006 degrees QTc Int : 412 ms Poor data quality, interpretation may be adversely affected Sinus rhythm with occasional Premature ventricular complexes Left axis deviation Inferior infarct , age undetermined Anterior infarct (cited on or before 05-SEP-2019) Abnormal ECG When compared with ECG of 20-OCT-2021 15:41, Similar findings Confirmed by Kwadwo Thacker ([id number]) on 10/22/2021 6:03:44 AM Referred By: REFERRED SELF Confirmed By:Kwadwo Thacker
[2021-10-22 06:09] LABS: Hematocrit (blood only) 23.6 % (42-52); Hemoglobin 7.3 g/dL (14.0-18.0); Mean Corpuscular Hemoglobin 20.3 pg (25-34); Mean Corpuscular Volume 65.6 fL (80-100); RDW Coefficient of Variation 27.3 % (11.5-14.5); RDW Standard Deviation 61.8 fL (36.4-46.3); White Blood Count 17.65 K/uL (4.8-10.8)
--- NOTE | 2021-10-22 06:16 | Electrocardiogram Report ---
Test Reason : Blood Pressure : / mmHG Vent. Rate : 093 BPM Atrial Rate : 092 BPM P-R Int : 000 ms QRS Dur : 066 ms QT Int : 326 ms P-R-T Axes : 000 -48 042 degrees QTc Int : 405 ms Poor data quality, interpretation may be adversely affected Sinus rhythm Left axis deviation Septal infarct (cited on or before 05-SEP-2019) Inferior infarct (cited on or before 20-OCT-2021) Abnormal ECG When compared with ECG of 20-OCT-2021 21:03, Premature ventricular complexes are no longer Present Confirmed by Kwadwo Thacker ([id number]) on 10/22/2021 6:16:31 AM Referred By: REFERRED SELF Confirmed By:Kwadwo Thacker
[2021-10-22 06:21] LABS: Platelet Count 69 K/uL (130-400)
[2021-10-22 06:22] LABS: ANC (manual) 17.65 K/uL (1.4-6.5); Acanthocytes 1+; Anisocytosis Present; Echinocytes 1+; Hypochromasia Present; Microcytosis Present; Neutrophils # (manual) 17.65 K/uL (1.4-6.5); Ovalocytes 1+; Platelet Estimate Decreased (Normal); Polychromasia 1+
[2021-10-22 06:24] LABS: Albumin Globulin Ratio 1.1 (0.9-2); Albumin Level 2.3 gm/dl (3.4-5.0); BUN Creatinine Ratio 25.2 (10-20); Bilirubin,Total 2.4 mg/dl (0.2-1.0); Calcium 7.8 mg/dl (8.5-10.1); Creatinine Clr Calc Pharmacy 47.9 ml/min; Est GFR (African American) 63.8 ml/min; Est GFR (Non-African American) 55.1 ml/min; Globulin 2.1 gm/dl (2.5-4.0); Magnesium 1.8 mg/dl (1.7-2.4); Phosphorus 4.7 mg/dl (2.5-4.9); Potassium 3.3 mmol/L (3.5-5.1); Total Protein 4.4 gm/dl (6.0-8.3)
--- NOTE | 2021-10-22 07:10 | XRay Report ---
XR chest 1V portable CLINICAL HISTORY: hypoxia. Status post intubation COMPARISON STUDY: 10/20/2021 TECHNIQUE: 1 view of the chest FINDINGS: Single frontal view of the chest demonstrates the heart to be enlarged. Endotracheal tube has been pl tim with its tip approximately 2.8 cm above the addison. Compared to the previous study, there has bee n interval development of diffuse interstitial and alveolar edema most characteristic of congestive h eart failure due to the rapid and significant interval change. Additionally, there are bilateral pleu ral effusions and bibasilar atelectasis. There is no acute osseous pathology. IMPRESSION: 1. Radiographic findings most characteristic of interval development of congestive heart failure with interstitial and alveolar edema, bilateral pleural effusions and bibasilar atelectasis. ACT 112: Negative or not required by law. Electronically signed by: Sebastián Aburto M.D. 10/22/2021 7:09 AM
--- NOTE | 2021-10-22 07:16 | CT Scan Report ---
CT angio head w con, CT head/brain wo con CLINICAL HISTORY: AMS TECHNIQUE: Contiguous axial CT images of the head were acquired from the base of the skull to the trisha harrison without intravenous contrast administration. CT angiography of the head was performed following intravenous administration of iodinated contrast. Coronal and sagittal MIPS were obtained from the ax ial data set and were submitted for review. Automated dose lowering techniques and/or adjustment acc ording to patient size were utilized for this examination. All measurements were calculated based on NASCET criteria. Comparison: None available at the time of this dictation. FINDINGS: CT head: There is no acute intracranial hemorrhage or evidence of acute territorial infarction. No sh ift of the midline structures, mass effect, or extra-axial abnormalities are shown. Lungs and soft tissues are unremarkable. CTA Head: The anterior and posterior cerebral circulations are patent. No stenosis or aneurysm is se en. There is prominence and tortuosity of the venous system in the left temporal lobe compatible with arteriovenous malformation. Atherosclerotic disease is noted. IMPRESSION: 1. No acute intracranial hemorrhage, evidence of acute territorial infarction, or other acute intrac ranial disease process. 2. 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 Assessment of stenosis of the internal carotid arteries is based on NASCET criteria. ACT 112: Negative or not required by law. Electronically signed by: Tomas Nesbitt M.D. 10/22/2021 7:15 AM
--- NOTE | 2021-10-22 07:28 | CT Scan Report ---
CT abd pelvis IV con only CLINICAL HISTORY: Follow-up abdominal pain and distention. Ascites. COMPARISON STUDY: 10/20/2021 CT DOSE: TECHNIQUE: Standard CT of the Abdomen and Pelvis was performed with IV contrast. A dose lowering radha hnique was utilized adhering to the principles of ALARA. Contrast Volume: Optiray 320, 119 ml. The patient did not receive oral contrast. FINDINGS: Lung base: There are moderate-sized bilateral pleural effusions with compressive atelectasis/collapse involving both lower lobes. Minimal lingular atelectasis is also present along with right middle lob e atelectasis. Abdominal cavity: Compared to previous examination, there is again marked abdominal and pelvic ascite s. There is a large ventral anterior abdominal wall hernia with loops of bowel projecting anteriorly. However, there is no evidence for bowel loop dilatation or obstruction. Esophageal varices are present. Liver: There is again evidence for cirrhosis of the liver with no focal hepatic mass identified. Ther e is no evidence for enhancing mass lesion. Spleen: There is homogeneous attenuation of the splenic parenchyma. There is no enhancing mass lesion . There is mild splenomegaly. Pancreas: There is homogeneous attenuation of the pancreatic parenchyma. There is no evidence for mas s lesion or peripancreatic fluid collection. Gall Bladder: The gallbladder is well distended with no evidence for intraluminal calculi, wall thick ening or pericholecystic edema. Adrenal glands: The adrenal glands are normal in size and attenuation. There is no evidence for enhan cing mass lesion. Kidneys: There is homogeneous attenuation of the renal parenchyma bilaterally. There is no evidence f or renal calculus or hydronephrosis. There is no evidence for enhancing mass. Bowel: There are fluid-filled loops of both large and small bowel without evidence for disproportiona te dilatation or obstruction. The findings are most characteristic of an ileus versus gastroenteritis . There is no evidence for mass lesion. There are no inflammatory changes present. There is no eviden ce for free air. Bladder: Dutton catheter is present within the bladder. : There is no evidence for pelvic mass or adenopathy. Vasculature: There is no evidence for aneurysmal dilatation of the abdominal aorta. Atherosclerotic c alcification is present. Osseous structures: There is no acute osseous pathology. Degenerative changes are seen within the spi ne. IMPRESSION: 1. Marked abdominal and pelvic ascites. 2. There is a large ventral abdominal wall hernia with CT findings characteristic of an ileus versus gastroenteritis. 3. Cirrhosis of the liver with mild splenomegaly and esophageal varices. 4. Moderate sized bilateral pleural effusions with compressive atelectasis/collapse of both lung base s. 5. Additional nonacute findings are delineated above. ACT 112: Negative or not required by law. Electronically signed by: Sebastián Aburto M.D. 10/22/2021 7:26 AM
--- NOTE | 2021-10-22 07:47 | CT Scan Report ---
CT angio chest PE protocol CLINICAL HISTORY: Patient on ventilator. Hypoxia. COMPARISON STUDY: Old CTA chest from 12/20/2010 and portable chest from 10/21/2021 CT DOSE: 2566.26 mGy.cm TECHNIQUE: CT Angio of the chest was performed.followed by image post processing with coronal, and s agittal MIP reformats. Contrast Volume: Optiray 320, 119 ml FINDINGS: Vasculature: There is homogeneous perfusion of the pulmonary vasculature bilaterally. No intraluminal filling defects or evidence for pulmonary embolus is seen. Airway: The airway is clear. No endobronchial lesion is identified. Endotracheal tube is in place. Lungs and pleural: There are moderately large bilateral pleural effusions with compressive atelectasi s/collapse involving both lower lobes. There is also atelectasis/collapse present involving both uppe r lobes. Patchy alveolar opacities are scattered throughout both upper lobes as well. The suspected pulmonary edema seen radiographically relates to the pleural effusions. There is no luis ss vascular congestion is identified. Mediastinum: There is no evidence for pathologic adenopathy. Heart is enlarged. The thoracic aorta is within normal limits. There is no evidence for pericardial effusion. Osseous structures: There is no acute osseous pathology. Impression: 1. No CTA evidence for pulmonary embolus. 2. Moderately large bilateral pleural effusions with compressive atelectasis/collapse involving both lower lobes. This accounts for the suspected vascular congestion on portable chest radiograph. There is no evidence for pulmonary edema. 3. Bilateral upper lobe alveolar opacities are also present bilaterally in the findings are suspiciou s for multi lobar pneumonia. ACT 112: Negative or not required by law. Electronically signed by: Sebastián Aburto M.D. 10/22/2021 7:45 AM
[2021-10-22] MEDS ORDERED: fentaNYL citrate 2,500 MCG/250 ML BAG IV ONE (08:11)
[2021-10-22] MEDS ORDERED: SODIUM CHLORIDE 0.9% 250 ML IV PRN ×4 (08:19→19:42)
[2021-10-22] MEDS: fentaNYL citrate 2,500 MCG/250 ML BAG IV SCH (08:30)
[2021-10-22] MEDS ORDERED: PHYTONADIONE 10 MG in DEXTROSE 5% 50 ML IV ONE (08:30)
--- NOTE | 2021-10-22 08:38 | XRay Report ---
XR chest 1V portable CLINICAL HISTORY: Follow-up bilateral alveolar opacities. COMPARISON STUDY: 10/21/[address] chest from 10/21/2021 TECHNIQUE: 1 view of the chest FINDINGS: Single frontal view of the chest demonstrates the heart to again be enlarged. There is no change in t he patient's endotracheal tube. There are again moderately large bilateral pleural effusions with com pressive atelectasis/collapse involving both lower lobes. Confluent alveolar opacity is seen within the right upper lobe which is more prominent on the current study and is most characteristic of pneumonia. No definite left upper lobe alveolar opacity is seen. There is mild central vascular congestion. There is no acute osseous pathology. IMPRESSION: 1. Worsening alveolar opacity within the right upper lobe most characteristic of pneumonia. 2. Moderately large bilateral pleural effusions with compressive atelectasis/collapse of both lower l obes is again seen. 3. Mild central vascular congestion. ACT 112: Negative or not required by law. Electronically signed by: Sebastián Aburto M.D. 10/22/2021 8:37 AM
--- NOTE | 2021-10-22 09:00 | Hospitalist Progress Note ---
Date of Service October 22, 2021 Assessment & Plan (1) Hepatic encephalopathy: (2) Cirrhosis of liver: (3) Abdominal ascites: (4) Lactic acid acidosis: (5) Elevated troponin: (6) Chronic anemia: Plan: 61 yo M who who has significant past medical history of alcoholic cirrhosis, portal hypertension, esophageal varices, chronic anemia, severe malnutrition, ankylosing spondylitis, history of Crohn's, hx of SBO, GERD, NOLBERTO, hepatitis B, tobacco abuse, history of alcohol abuse presents to ED secondary to confusion. Hepatic encephalopathy Cirrhosis of liver Lactic acidosis Abdominal ascites Admitted to PCU Lactulose enema 2 g every 8 hours Recommend adding rifaximin when able to tolerate p.o. Repeat LFTs, INR and ammonia in a.m. - > ammonia down to 62 urine drug tox -positive for opiates and marijuana, pt takes chronic opiates but no signs of respiratory depression on admission blood cultures pending, urine ordered Started with IV Rocephin for SBP prophylaxis, on GI eval, concern for SBP (patient allergic to penicillin, therefore could not broaden to Zosyn, Flagyl added) IV Thiamine, Folic Acid and PPI Obtained Ultrasound of abdomen for ascites IMPRESSION: Moderate abdominal and pelvic ascites. CT abdomen pelvis IMPRESSION: 1. Near nondiagnostic evaluation of the abdomen and pelvis due to lack of contrast and lack of fat planes. 2. Cirrhosis. Moderate ascites. Anasarca. 3. No bowel obstruction. 4. Small bowel wall thickening. This is nonspecific although could be related to portal hypertension. 5. Small bilateral pleural effusions. Gastroenterology consulted, per their note: (pls refer to original note for further detail) Concern for possible SBP, ultrasound-guided paracentesis ordered, follow cultx, IV albumin Continue broad-spectrum antibiotics, IV PPI Troponin elevated, continue to trend, if continues to be elevated recommend cardiology consult Condition is worrisome, and family was informed 10/21 -WBC elevated today at 17,000, considering Zosyn instead of ceftriaxone, however patient has penicillin allergy. Will add Flagyl. We will try to avoid IV, due to fluid overload/anasarca/ascites. Patient is able to answer some questions appropriately, may tolerate p.o. 10/22 Overnight patient became code purple, hypoxic, required intubation and transfer to ICU. Possibly related to medication error, p.o. Flagyl given as IV. Patient was transferred to ICU, currently intubated, sedated, on pressors. Overnight also noted bleeding from IV sites, patient in DIC. [employer] consulted with hematology. Patient is currently receiving FFP, cryo, 1 unit of PRBC. Patient underwent ultrasound-guided paracentesis yesterday, no signs of SBP. CT abdomen pelvis repeated, CT chest and CT head also obtained. CT abdomen shows significant abdominal and pelvic ascites, and large ventral abdominal wall hernia, with findings consistent with ileus versus gastroenteritis. Cirrhosis, esophageal varices, pleural effusions. See full detail in radiology report. CTA abd. pelvis IMPRESSION: 1. Marked abdominal and pelvic ascites. 2. There is a large ventral abdominal wall hernia with CT findings richard racteristic of an ileus versus gastroenteritis. 3. Cirrhosis of the liver with mild splenomegaly and esophageal varices. 4. Moderate sized bilateral pleural effusions with compressive atelectasis/jacky apse of both lung bases. 5. Additional nonacute findings are delineated above. CTA chest Impression: 1. No CTA evidence for pulmonary embolus. 2. Moderately large bilateral pleural effusions with compressive atelectasis/collapse involving both lower lobes. This accounts for the suspected vascular congestion on portable chest radiograph. There is no evidence for pulmonary edema. 3. Bilateral upper lobe alveolar opacities are also present bilaterally in the findings are suspicious for multi lobar pneumonia. Head CTA IMPRESSION: 1. No acute intracranial hemorrhage, evidence of acute territorial infarction, or other acute intracranial disease process. 2. 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 Antibiotic now changed to meropenem per payment collector. Further care per ICU team. Sister and POA, Mrs. Cele Zazueta updated over the phone by me and Dr. Nugent today. Elevated troponin Likely in setting of liver disease Patient without chest pain will cycle for completeness Echo ordered and pending Hypomagnesemia - replete and monitor Hypokalemia - replete and monitor Severe malnutrition Hypoalbuminemia Consult dietitian Chronic anemia Secondary to liver disease H&H 8.7 and 28.2 Known portal hypertension and esophageal varices Now patient in DIC, further care as above, per payment collector/hematology. dvt ppx: SCD/TEDS for now in setting of liver disease Dispo: ICU PCP: Dr. Black Code status: FULL CODE (CODE STATUS discussed with the patient yesterday, however patient did not say his preferences (questionable if patient could really understand the conversation); patient's sister and POA contacted, reports that patient likely would want to be DNR/DNI, she will get back to us after discussing further with family/ will also try to find record of his wishes). Prognosis remains guarded. Admission and Anticipated Discharge Date Admission Date: October 20, 2021 Subjective Patient seen in follow-up of hepatic encephalopathy Yesterday patient underwent diagnostic paracentesis, for concern for SBP Overnight, patient was code purple, hypoxic, intubated and transferred to ICU, per chart review, possible medication administration error occurred (? related) Currently patient is in ICU, sedated, intubated, on pressors He is receiving FFP, cryo, 1 unit of PRBCs Discussed in detail with payment collector, Dr. Nugent, also discussed with patient's sister and POA, Mrs. Cele Nevarezer Review of Systems Review of Systems: Unobtainable due to cognitive status and Unobtainable due to endotracheal tube Physical Exam Physical Exam: Constitutional:Cachectic, chronically ill-appearing , intubated, sedated Head: Normocephalic, Atraumatic, b/l temporal wasting Respiratory:intubated, + coarse breath sounds Cardiovascular: RRR, 1/6 colin cardiac apex, b/l nonpitting edema, b/l severe venous stasis changes Chest: normal inspection of chest Abdomen: +significant ascites noted, +BS, soft, (previously tender to palp. diffusely) Musculoskeletal:unable to assess strength Skin: b/l significant LE venous stasis changes Heme: bleeding from multiple IV sites Neurologic:sedated, intubated Results & Data Results & Data ([facility]) Vital Signs (Past 12 Hours) Vital Signs Temp Pulse Pulse Resp BP BP Pulse Ox 10/22/21 08:20 35.2 C L 81 26 H 97 10/22/21 08:16 35.2 C L 92 H 29 H 109/62 95 10/22/21 08:10 35.2 C L 99 H 26 H 104/63 97 10/22/21 08:05 35.1 C L 92 H 26 H 108/62 100 10/22/21 08:00 35.0 C L 83 26 H 97/57 L 100 10/22/21 07:55 35.0 C L 84 26 H 76/57 L 99 10/22/21 07:50 34.9 C L 84 26 H 99/60 L 99 10/22/21 07:45 34.9 C L 85 26 H 90/55 L 100 10/22/21 07:40 34.8 C L 80 28 H 92/55 L 100 10/22/21 07:35 34.7 C L 81 26 H 97/58 L 100 10/22/21 07:30 34.7 C L 82 26 H 96/58 L 100 10/22/21 07:25 34.6 C L 81 28 H 92/59 L 98 10/22/21 07:22 80 26 H 99 10/22/21 07:20 34.6 C L 79 26 H 85/54 L 97 10/22/21 07:15 34.5 C L 80 26 H 84/49 L 97 10/22/21 07:10 34.5 C L 86 28 H 92/55 L 95 10/22/21 07:05 34.5 C L 99 H 25 H 105/61 95 10/22/21 07:02 34.4 C L 96 H 24 129/60 100 10/22/21 07:00 34.4 C L 95 H 28 H 91 10/22/21 06:57 34.4 C L 95 H 27 H 85/61 L 96 10/22/21 06:51 34.3 C L 91 H 26 H 119/62 96 10/22/21 06:50 34.3 C L 90 26 H 95 10/22/21 06:45 34.3 C L 82 27 H 112/59 L 97 10/22/21 06:40 34.2 C L 77 29 H 97/58 L 98 10/22/21 06:35 34.2 C L 83 30 H 114/73 97 10/22/21 06:30 34.1 C L 75 27 H 95/57 L 99 10/22/21 06:25 34.1 C L 79 28 H 104/59 L 99 10/22/21 06:20 34.1 C L 74 27 H 95/56 L 97 10/22/21 06:15 34.0 C L 75 26 H 93/56 L 100 10/22/21 06:10 34.0 C L 72 26 H 94/59 L 96 10/22/21 06:06 34.0 C L 84 21 93/65 L 94 10/22/21 06:00 33.9 C L 70 26 H 89/54 L 96 10/22/21 05:55 33.9 C L 71 26 H 90/53 L 97 10/22/21 05:50 33.9 C L 70 26 H 89/54 L 96 10/22/21 05:45 33.9 C L 74 26 H 94/58 L 95 10/22/21 05:40 33.9 C L 75 28 H 92/55 L 97 10/22/21 05:35 33.9 C L 85 27 H 103/61 96 10/22/21 05:30 33.8 C L 86 26 H 98/58 L 96 10/22/21 05:25 33.8 C L 90 29 H 115/72 85 L 10/22/21 05:21 33.8 C L 98 H 24 122/57 L 92 10/22/21 05:20 33.8 C L 96 H 26 H 97 10/22/21 05:10 33.8 C L 87 30 H 97/56 L 93 10/22/21 05:05 33.7 C L 95 H 25 H 117/75 93 10/22/21 05:00 33.7 C L 83 25 H 95/76 L 99 10/22/21 04:56 33.7 C L 84 23 104/50 L 97 10/22/21 04:50 33.7 C L 96 H 20 130/64 98 10/22/21 04:45 33.7 C L 81 27 H 109/60 100 10/22/21 04:44 33.7 C L 81 29 H 129/55 L 98 10/22/21 04:40 33.7 C L 82 28 H 118/52 L 99 10/22/21 04:35 33.6 C L 83 23 113/63 99 10/22/21 04:30 33.6 C L 77 28 H 107/76 99 10/22/21 04:25 33.6 C L 79 23 102/64 99 10/22/21 04:22 33.7 C L 88 29 H 133/55 L 98 10/22/21 04:20 33.6 C L 83 18 100/68 100 10/22/21 04:15 33.7 C L 83 21 102/67 93 10/22/21 04:07 33.6 C L 88 19 117/54 L 92 10/22/21 04:00 74 112/52 L 10/22/21 03:55 98 H 10/22/21 03:50 33.7 C L 92 H 27 H 133/73 90 10/22/21 03:45 33.7 C L 89 26 H 114/64 90 10/22/21 03:40 33.8 C L 91 H 26 H 99/56 L 88 L 10/22/21 03:35 33.8 C L 90 26 H 96/57 L 91 10/22/21 03:30 33.8 C L 83 27 H 89/57 L 89 L 10/22/21 03:25 33.9 C L 88 26 H 76/62 L 10/22/21 03:24 33.9 C L 90 20 89/56 L 92 10/22/21 03:20 33.9 C L 91 H 26 H 89/56 L 10/22/21 03:15 33.9 C L 93 H 26 H 99/60 L 94 10/22/21 03:10 33.9 C L 93 H 26 H 75/48 L 81 L 10/22/21 03:05 33.9 C L 93 H 26 H 90/57 L 86 L 10/22/21 03:00 34.0 C L 94 H 26 H 86/58 L 90 10/22/21 02:55 34.0 C L 96 H 26 H 88/55 L 90 10/22/21 02:51 34.0 C L 98 H 26 H 83/61 L 89 L 10/22/21 02:50 34.0 C L 100 H 26 H 93 10/22/21 02:45 34.0 C L 96 H 26 H 93/64 L 84 L 10/22/21 02:40 34.0 C L 97 H 26 H 92/64 L 96 10/22/21 02:39 34.0 C L 101 H 26 H 92 10/22/21 02:30 34.0 C L 103 H 26 H 78/63 L 88 L 10/22/21 02:25 98 H 26 H 103/67 95 10/22/21 02:20 100 H 23 93/62 L 77 L 10/22/21 02:15 101 H 26 H 85/60 L 97 10/22/21 02:12 94 H 26 H 84/48 L 97 10/22/21 02:10 91 H 26 H 78/50 L 97 10/22/21 02:08 91 H 26 H 81/53 L 96 10/22/21 02:00 93 H 26 H 86/56 L 97 10/22/21 01:57 89/53 L 10/22/21 01:50 96 H 90/53 L 98 10/22/21 01:48 97 H 90/49 L 98 10/22/21 01:40 98 H 99 10/22/21 01:36 97 10/22/21 00:50 93 H 23 99/62 L 99 10/22/21 00:47 94 H 23 95/63 L 99 10/22/21 00:40 101 H 26 H 96 10/22/21 00:30 104 H 26 H 100 10/22/21 00:20 107 H 23 124/77 100 10/22/21 00:10 109 H 26 H 110/69 100 10/22/21 00:04 110 H 26 H 110/71 97 10/22/21 00:00 110 H 26 H 104/44 L 87 L 10/21/21 23:54 111 H 26 H 97/59 L 10/21/21 23:50 118 H 26 H 93 10/21/21 23:45 122 H 26 H 115/73 87 L 10/21/21 23:40 116 H 22 98 10/21/21 23:31 118 H 20 129/74 99 10/21/21 23:30 121 H 20 127/76 100 10/21/21 23:29 127 H 15 117/78 100 10/21/21 23:28 125 H 20 117/74 100 10/21/21 23:27 125 H 29 H 115/77 98 10/21/21 23:26 132 H 27 H 114/79 99 10/21/21 23:25 135 H 16 106/72 10/21/21 23:24 125 H 20 104/67 99 10/21/21 23:23 135 H 18 104/64 98 10/21/21 23:22 133 H 19 87/53 L 96 10/21/21 23:20 133 H 20 72/49 L 97 10/21/21 23:18 129 H 29 H 88/45 L 10/21/21 23:01 36.4 C L 92 H 25 H 92/57 L 63 L 10/21/21 22:17 98 H Laboratory Results 10/22/21 10/22/21 10/22/21 Range/Units 08:33 08:33 08:33 WBC (4.8-10.8) K/uL RBC (4.7-6.1) M/uL Hgb (14.0-18.0) g/dL POC Hgb (14.0-18.0) g/dl Hct (42-52) % POC Hct (42-52) % MCV (80-100) fL MCH (25-34) pg MCHC (32-36) g/dL RDW Std Deviation (36.4-46.3) fL RDW Coeff of Ronnie (11.5-14.5) % Plt Count (130-400) K/uL Immature Gran % (Auto) % Neut % (Auto) % Lymph % (Auto) % [place] % (Auto) % Eos % (Auto) % Baso % (Auto) % Neut # (Auto) (1.4-6.5) K/uL Lymph # (Auto) (1.2-3.4) K/uL [place] # (Auto) (0.11-0.59) K/uL Eos # (Auto) (0-0.5) K/uL Baso # (Auto) (0-0.2) K/uL Immature Gran # (Auto) (0.00-0.02) K/uL Absolute Nucleated RBC (0-0) K/uL Nucleated RBC % (auto) % Neutrophils % (Manual) % Lymphocytes % (Manual) % Monocytes % (Manual) % Eosinophils % (Manual) % Myelocytes % (Man) % Neutrophils # (Manual) (1.4-6.5) K/uL Total Absolute Neuts (1.4-6.5) K/uL Lymphocytes # (Manual) (1.2-3.4) K/uL Total Abs Lymphocytes (1.2-3.4) K/uL Monocytes # (Manual) (0.11-0.59) K/uL Eosinophils # (Manual) (0-0.5) K/uL Myelocytes # (Manual) (0-0) K/uL Platelet Estimate (Normal) Giant Platelets Polychromasia Hypochromasia Anisocytosis Microcytosis Ovalocytes Echinocytes Acanthocytes (Spur) Haptoglobin Pending PT (9.0-12.0) Seconds INR (0.9-1.1) Fibrinogen (184-400) mg/dl Fibrin Degrad Products D-Dimer (0-500) ug/L FEU Factor VIII Activity Sample Site POC pH (7.35-7.45) POC pCO2 (35-46) mmHg POC pO2 (80-95) mmHg POC HCO3 (19-24) lei/L POC Total CO2 (24-31) mmol/L POC Base Excess (-9-1.8) lei/L ABG pH (Temp Correct) (7.35-7.45) ABG pCO2 (Temp Corrct (35-46) mmHg POC ABG pO2 at Pt Temp POC ABG O2 Sat (90-95) % Sravan Test O2 Delivery Device POC O2 Rate POC FiO2 % Tidal Volume PEEP POC Sodium (135-144) mmol/L Sodium (136-145) mmol/L POC Potassium (3.3-5.0) mmol/L Potassium (3.5-5.1) mmol/L Chloride (98-107) mmol/L Carbon Dioxide (21-32) mmol/L Anion Gap (3-11) BUN (6-23) mg/dl Creatinine (0.6-1.4) mg/dl Est Cr Clr Drug Dosing ml/min Est GFR ( Amer) ml/min Est GFR (Non-Af Amer) ml/min BUN/Creatinine Ratio (10-20) Glucose (70-99(Fasting)) mg/dl Lactate Pending Calcium (8.5-10.1) mg/dl Phosphorus (2.5-4.9) mg/dl Magnesium (1.7-2.4) mg/dl Total Bilirubin Pending (0.2-1.0) mg/dl Direct Bilirubin Pending AST Pending (13-39) U/L ALT Pending (7-52) U/L Alkaline Phosphatase Pending (34-104) U/L Ammonia (18-72) umol/L Lactate Dehydrogenase (86-244) U/L Troponin I High Sens (0-20) pg/ml Total Protein Pending (6.0-8.3) gm/dl Albumin Pending (3.4-5.0) gm/dl Globulin (2.5-4.0) gm/dl Albumin/Globulin Ratio (0.9-2) Procalcitonin (0-0.5) ng/ml Fluid Neutrophils % % Fluid Lymphocytes % % Fluid Eosinophils % % Fluid Basophils % % Fluid Meso/Macro/[place] % % Fluid Comment Peritoneal Color Peritoneal Appearance Peritoneal WBC (0-300) /ul Peritoneal RBC /uL Peritoneal Tot Protein gm/dl Peritoneal Albumin gm/dl Nasal Screen MRSA (PCR) (Negative) Blood Type Antibody Screen Crossmatch 10/22/21 10/22/21 10/22/21 Range/Units 08:33 08:33 08:33 WBC (4.8-10.8) K/uL RBC (4.7-6.1) M/uL Hgb (14.0-18.0) g/dL POC Hgb (14.0-18.0) g/dl Hct (42-52) % POC Hct (42-52) % MCV (80-100) fL MCH (25-34) pg MCHC (32-36) g/dL RDW Std Deviation (36.4-46.3) fL RDW Coeff of Ronnie (11.5-14.5) % Plt Count (130-400) K/uL Immature Gran % (Auto) % Neut % (Auto) % Lymph % (Auto) % [place] % (Auto) % Eos % (Auto) % Baso % (Auto) % Neut # (Auto) (1.4-6.5) K/uL Lymph # (Auto) (1.2-3.4) K/uL [place] # (Auto) (0.11-0.59) K/uL Eos # (Auto) (0-0.5) K/uL Baso # (Auto) (0-0.2) K/uL Immature Gran # (Auto) (0.00-0.02) K/uL Absolute Nucleated RBC (0-0) K/uL Nucleated RBC % (auto) % Neutrophils % (Manual) % Lymphocytes % (Manual) % Monocytes % (Manual) % Eosinophils % (Manual) % Myelocytes % (Man) % Neutrophils # (Manual) (1.4-6.5) K/uL Total Absolute Neuts (1.4-6.5) K/uL Lymphocytes # (Manual) (1.2-3.4) K/uL Total Abs Lymphocytes (1.2-3.4) K/uL Monocytes # (Manual) (0.11-0.59) K/uL Eosinophils # (Manual) (0-0.5) K/uL Myelocytes # (Manual) (0-0) K/uL Platelet Estimate (Normal) Giant Platelets Polychromasia Hypochromasia Anisocytosis Microcytosis Ovalocytes Echinocytes Acanthocytes (Spur) Haptoglobin PT Pending (9.0-12.0) Seconds INR Pending (0.9-1.1) Fibrinogen Pending (184-400) mg/dl Fibrin Degrad Products Pending D-Dimer Pending (0-500) ug/L FEU Factor VIII Activity Sample Site POC pH (7.35-7.45) POC pCO2 (35-46) mmHg POC pO2 (80-95) mmHg POC HCO3 (19-24) lei/L POC Total CO2 (24-31) mmol/L POC Base Excess (-9-1.8) lei/L ABG pH (Temp Correct) (7.35-7.45) ABG pCO2 (Temp Corrct (35-46) mmHg POC ABG pO2 at Pt Temp POC ABG O2 Sat (90-95) % Sravan Test O2 Delivery Device POC O2 Rate POC FiO2 % Tidal Volume PEEP POC Sodium (135-144) mmol/L Sodium (136-145) mmol/L POC Potassium (3.3-5.0) mmol/L Potassium (3.5-5.1) mmol/L Chloride (98-107) mmol/L Carbon Dioxide (21-32) mmol/L Anion Gap (3-11) BUN (6-23) mg/dl Creatinine (0.6-1.4) mg/dl Est Cr Clr Drug Dosing ml/min Est GFR ( Amer) ml/min Est GFR (Non-Af Amer) ml/min BUN/Creatinine Ratio (10-20) Glucose (70-99(Fasting)) mg/dl Lactate Calcium (8.5-10.1) mg/dl Phosphorus (2.5-4.9) mg/dl Magnesium (1.7-2.4) mg/dl Total Bilirubin (0.2-1.0) mg/dl Direct Bilirubin AST (13-39) U/L ALT (7-52) U/L Alkaline Phosphatase (34-104) U/L Ammonia (18-72) umol/L Lactate Dehydrogenase Pending (86-244) U/L Troponin I High Sens (0-20) pg/ml Total Protein (6.0-8.3) gm/dl Albumin (3.4-5.0) gm/dl Globulin (2.5-4.0) gm/dl Albumin/Globulin Ratio (0.9-2) Procalcitonin (0-0.5) ng/ml Fluid Neutrophils % % Fluid Lymphocytes % % Fluid Eosinophils % % Fluid Basophils % % Fluid Meso/Macro/[place] % % Fluid Comment Peritoneal Color Peritoneal Appearance Peritoneal WBC (0-300) /ul Peritoneal RBC /uL Peritoneal Tot Protein gm/dl Peritoneal Albumin gm/dl Nasal Screen MRSA (PCR) (Negative) Blood Type Antibody Screen Crossmatch 10/22/21 10/22/21 10/22/21 Range/Units 05:06 04:56 04:56 WBC 17.65 H (4.8-10.8) K/uL RBC 3.60 L (4.7-6.1) M/uL Hgb 7.3 L (14.0-18.0) g/dL POC Hgb (14.0-18.0) g/dl Hct 23.6 L (42-52) % POC Hct (42-52) % MCV 65.6 L (80-100) fL MCH 20.3 L (25-34) pg MCHC 30.9 L (32-36) g/dL RDW Std Deviation 61.8 H (36.4-46.3) fL RDW Coeff of Ronnie 27.3 H (11.5-14.5) % Plt Count 69 L (130-400) K/uL Immature Gran % (Auto) % Neut % (Auto) % Lymph % (Auto) % [place] % (Auto) % Eos % (Auto) % Baso % (Auto) % Neut # (Auto) (1.4-6.5) K/uL Lymph # (Auto) (1.2-3.4) K/uL [place] # (Auto) (0.11-0.59) K/uL Eos # (Auto) (0-0.5) K/uL Baso # (Auto) (0-0.2) K/uL Immature Gran # (Auto) (0.00-0.02) K/uL Absolute Nucleated RBC 0.09 H (0-0) K/uL Nucleated RBC % (auto) 0.5 % Neutrophils % (Manual) 100.0 % Lymphocytes % (Manual) 0.0 % Monocytes % (Manual) % Eosinophils % (Manual) % Myelocytes % (Man) % Neutrophils # (Manual) 17.65 H (1.4-6.5) K/uL Total Absolute Neuts 17.65 H (1.4-6.5) K/uL Lymphocytes # (Manual) (1.2-3.4) K/uL Total Abs Lymphocytes 0.00 L (1.2-3.4) K/uL Monocytes # (Manual) (0.11-0.59) K/uL Eosinophils # (Manual) (0-0.5) K/uL Myelocytes # (Manual) (0-0) K/uL Platelet Estimate Decreased L (Normal) Giant Platelets Polychromasia 1+ Hypochromasia Present Anisocytosis Present Microcytosis Present Ovalocytes 1+ Echinocytes 1+ Acanthocytes (Spur) 1+ Haptoglobin PT (9.0-12.0) Seconds INR (0.9-1.1) Fibrinogen (184-400) mg/dl Fibrin Degrad Products D-Dimer (0-500) ug/L FEU Factor VIII Activity Sample Site POC pH (7.35-7.45) POC pCO2 (35-46) mmHg POC pO2 (80-95) mmHg POC HCO3 (19-24) lei/L POC Total CO2 (24-31) mmol/L POC Base Excess (-9-1.8) lei/L ABG pH (Temp Correct) (7.35-7.45) ABG pCO2 (Temp Corrct (35-46) mmHg POC ABG pO2 at Pt Temp POC ABG O2 Sat (90-95) % Sravan Test O2 Delivery Device POC O2 Rate POC FiO2 % Tidal Volume PEEP POC Sodium (135-144) mmol/L Sodium (136-145) mmol/L POC Potassium (3.3-5.0) mmol/L Potassium (3.5-5.1) mmol/L Chloride (98-107) mmol/L Carbon Dioxide (21-32) mmol/L Anion Gap (3-11) BUN (6-23) mg/dl Creatinine (0.6-1.4) mg/dl Est Cr Clr Drug Dosing ml/min Est GFR ( Amer) ml/min Est GFR (Non-Af Amer) ml/min BUN/Creatinine Ratio (10-20) Glucose (70-99(Fasting)) mg/dl Lactate Calcium (8.5-10.1) mg/dl Phosphorus (2.5-4.9) mg/dl Magnesium (1.7-2.4) mg/dl Total Bilirubin (0.2-1.0) mg/dl Direct Bilirubin AST (13-39) U/L ALT (7-52) U/L Alkaline Phosphatase (34-104) U/L Ammonia 63.0 (18-72) umol/L Lactate Dehydrogenase (86-244) U/L Troponin I High Sens (0-20) pg/ml Total Protein (6.0-8.3) gm/dl Albumin (3.4-5.0) gm/dl Globulin (2.5-4.0) gm/dl Albumin/Globulin Ratio (0.9-2) Procalcitonin 2.18 H (0-0.5) ng/ml Fluid Neutrophils % % Fluid Lymphocytes % % Fluid Eosinophils % % Fluid Basophils % % Fluid Meso/Macro/[place] % % Fluid Comment Peritoneal Color Peritoneal Appearance Peritoneal WBC (0-300) /ul Peritoneal RBC /uL Peritoneal Tot Protein gm/dl Peritoneal Albumin gm/dl Nasal Screen MRSA (PCR) (Negative) Blood Type Antibody Screen Crossmatch 10/22/21 10/22/21 10/22/21 Range/Units 04:56 04:56 01:42 WBC (4.8-10.8) K/uL RBC (4.7-6.1) M/uL Hgb (14.0-18.0) g/dL POC Hgb (14.0-18.0) g/dl Hct (42-52) % POC Hct (42-52) % MCV (80-100) fL MCH (25-34) pg MCHC (32-36) g/dL RDW Std Deviation (36.4-46.3) fL RDW Coeff of Ronnie (11.5-14.5) % Plt Count (130-400) K/uL Immature Gran % (Auto) % Neut % (Auto) % Lymph % (Auto) % [place] % (Auto) % Eos % (Auto) % Baso % (Auto) % Neut # (Auto) (1.4-6.5) K/uL Lymph # (Auto) (1.2-3.4) K/uL [place] # (Auto) (0.11-0.59) K/uL Eos # (Auto) (0-0.5) K/uL Baso # (Auto) (0-0.2) K/uL Immature Gran # (Auto) (0.00-0.02) K/uL Absolute Nucleated RBC (0-0) K/uL Nucleated RBC % (auto) % Neutrophils % (Manual) % Lymphocytes % (Manual) % Monocytes % (Manual) % Eosinophils % (Manual) % Myelocytes % (Man) % Neutrophils # (Manual) (1.4-6.5) K/uL Total Absolute Neuts (1.4-6.5) K/uL Lymphocytes # (Manual) (1.2-3.4) K/uL Total Abs Lymphocytes (1.2-3.4) K/uL Monocytes # (Manual) (0.11-0.59) K/uL Eosinophils # (Manual) (0-0.5) K/uL Myelocytes # (Manual) (0-0) K/uL Platelet Estimate (Normal) Giant Platelets Polychromasia Hypochromasia Anisocytosis Microcytosis Ovalocytes Echinocytes Acanthocytes (Spur) Haptoglobin PT 22.3 H (9.0-12.0) Seconds INR 2.2 H (0.9-1.1) Fibrinogen (184-400) mg/dl Fibrin Degrad Products >40 H D-Dimer (0-500) ug/L FEU Factor VIII Activity Sample Site POC pH (7.35-7.45) POC pCO2 (35-46) mmHg POC pO2 (80-95) mmHg POC HCO3 (19-24) lei/L POC Total CO2 (24-31) mmol/L POC Base Excess (-9-1.8) lei/L ABG pH (Temp Correct) (7.35-7.45) ABG pCO2 (Temp Corrct (35-46) mmHg POC ABG pO2 at Pt Temp POC ABG O2 Sat (90-95) % Sravan Test O2 Delivery Device POC O2 Rate POC FiO2 % Tidal Volume PEEP POC Sodium (135-144) mmol/L Sodium 140 (136-145) mmol/L POC Potassium (3.3-5.0) mmol/L Potassium 3.3 L (3.5-5.1) mmol/L Chloride 109 H (98-107) mmol/L Carbon Dioxide 19 L (21-32) mmol/L Anion Gap 12 H (3-11) BUN 35 H (6-23) mg/dl Creatinine 1.39 (0.6-1.4) mg/dl Est Cr Clr Drug Dosing 47.9 ml/min Est GFR ( Amer) 63.8 ml/min Est GFR (Non-Af Amer) 55.1 ml/min BUN/Creatinine Ratio 25.2 H (10-20) Glucose 97 (70-99(Fasting)) mg/dl Lactate Calcium 7.8 L (8.5-10.1) mg/dl Phosphorus 4.7 (2.5-4.9) mg/dl Magnesium 1.8 (1.7-2.4) mg/dl Total Bilirubin 2.4 H D (0.2-1.0) mg/dl Direct Bilirubin AST 34 (13-39) U/L ALT 22 (7-52) U/L Alkaline Phosphatase 65 (34-104) U/L Ammonia (18-72) umol/L Lactate Dehydrogenase (86-244) U/L Troponin I High Sens 99.0 H* D (0-20) pg/ml Total Protein 4.4 L (6.0-8.3) gm/dl Albumin 2.3 L (3.4-5.0) gm/dl Globulin 2.1 L (2.5-4.0) gm/dl Albumin/Globulin Ratio 1.1 (0.9-2) Procalcitonin (0-0.5) ng/ml Fluid Neutrophils % % Fluid Lymphocytes % % Fluid Eosinophils % % Fluid Basophils % % Fluid Meso/Macro/[place] % % Fluid Comment Peritoneal Color Peritoneal Appearance Peritoneal WBC (0-300) /ul Peritoneal RBC /uL Peritoneal Tot Protein gm/dl Peritoneal Albumin gm/dl Nasal Screen MRSA (PCR) (Negative) Blood Type Antibody Screen Crossmatch 10/22/21 10/22/21 10/22/21 Range/Units 00:50 00:34 00:34 WBC (4.8-10.8) K/uL RBC (4.7-6.1) M/uL Hgb (14.0-18.0) g/dL POC Hgb (14.0-18.0) g/dl Hct (42-52) % POC Hct (42-52) % MCV (80-100) fL MCH (25-34) pg MCHC (32-36) g/dL RDW Std Deviation (36.4-46.3) fL RDW Coeff of Ronnie (11.5-14.5) % Plt Count (130-400) K/uL Immature Gran % (Auto) % Neut % (Auto) % Lymph % (Auto) % [place] % (Auto) % Eos % (Auto) % Baso % (Auto) % Neut # (Auto) (1.4-6.5) K/uL Lymph # (Auto) (1.2-3.4) K/uL [place] # (Auto) (0.11-0.59) K/uL Eos # (Auto) (0-0.5) K/uL Baso # (Auto) (0-0.2) K/uL Immature Gran # (Auto) (0.00-0.02) K/uL Absolute Nucleated RBC (0-0) K/uL Nucleated RBC % (auto) % Neutrophils % (Manual) % Lymphocytes % (Manual) % Monocytes % (Manual) % Eosinophils % (Manual) % Myelocytes % (Man) % Neutrophils # (Manual) (1.4-6.5) K/uL Total Absolute Neuts (1.4-6.5) K/uL Lymphocytes # (Manual) (1.2-3.4) K/uL Total Abs Lymphocytes (1.2-3.4) K/uL Monocytes # (Manual) (0.11-0.59) K/uL Eosinophils # (Manual) (0-0.5) K/uL Myelocytes # (Manual) (0-0) K/uL Platelet Estimate (Normal) Giant Platelets Polychromasia Hypochromasia Anisocytosis Microcytosis Ovalocytes Echinocytes Acanthocytes (Spur) Haptoglobin Pending PT (9.0-12.0) Seconds INR (0.9-1.1) Fibrinogen (184-400) mg/dl Fibrin Degrad Products D-Dimer (0-500) ug/L FEU Factor VIII Activity Pending Sample Site POC pH (7.35-7.45) POC pCO2 (35-46) mmHg POC pO2 (80-95) mmHg POC HCO3 (19-24) lei/L POC Total CO2 (24-31) mmol/L POC Base Excess (-9-1.8) lei/L ABG pH (Temp Correct) (7.35-7.45) ABG pCO2 (Temp Corrct (35-46) mmHg POC ABG pO2 at Pt Temp POC ABG O2 Sat (90-95) % Sravan Test O2 Delivery Device POC O2 Rate POC FiO2 % Tidal Volume PEEP POC Sodium (135-144) mmol/L Sodium (136-145) mmol/L POC Potassium (3.3-5.0) mmol/L Potassium (3.5-5.1) mmol/L Chloride (98-107) mmol/L Carbon Dioxide (21-32) mmol/L Anion Gap (3-11) BUN (6-23) mg/dl Creatinine (0.6-1.4) mg/dl Est Cr Clr Drug Dosing ml/min Est GFR ( Amer) ml/min Est GFR (Non-Af Amer) ml/min BUN/Creatinine Ratio (10-20) Glucose (70-99(Fasting)) mg/dl Lactate Calcium (8.5-10.1) mg/dl Phosphorus (2.5-4.9) mg/dl Magnesium (1.7-2.4) mg/dl Total Bilirubin (0.2-1.0) mg/dl Direct Bilirubin AST (13-39) U/L ALT (7-52) U/L Alkaline Phosphatase (34-104) U/L Ammonia (18-72) umol/L Lactate Dehydrogenase (86-244) U/L Troponin I High Sens (0-20) pg/ml Total Protein (6.0-8.3) gm/dl Albumin (3.4-5.0) gm/dl Globulin (2.5-4.0) gm/dl Albumin/Globulin Ratio (0.9-2) Procalcitonin (0-0.5) ng/ml Fluid Neutrophils % % Fluid Lymphocytes % % Fluid Eosinophils % % Fluid Basophils % % Fluid Meso/Macro/[place] % % Fluid Comment Peritoneal Color Peritoneal Appearance Peritoneal WBC (0-300) /ul Peritoneal RBC /uL Peritoneal Tot Protein gm/dl Peritoneal Albumin gm/dl Nasal Screen MRSA (PCR) Positive A (Negative) Blood Type Antibody Screen Crossmatch 10/22/21 10/22/21 10/22/21 Range/Units 00:34 00:34 00:34 WBC 13.29 H (4.8-10.8) K/uL RBC 4.53 L (4.7-6.1) M/uL Hgb 8.8 L (14.0-18.0) g/dL POC Hgb (14.0-18.0) g/dl Hct 29.5 L (42-52) % POC Hct (42-52) % MCV 65.1 L (80-100) fL MCH 19.4 L (25-34) pg MCHC 29.8 L (32-36) g/dL RDW Std Deviation 61.4 H (36.4-46.3) fL RDW Coeff of Ronnie 27.3 H (11.5-14.5) % Plt Count 99 L (130-400) K/uL Immature Gran % (Auto) 0.8 % Neut % (Auto) 92.9 % Lymph % (Auto) 3.8 % [place] % (Auto) 1.5 % Eos % (Auto) 1.0 % Baso % (Auto) 0.0 % Neut # (Auto) 12.35 H (1.4-6.5) K/uL Lymph # (Auto) 0.50 L (1.2-3.4) K/uL [place] # (Auto) 0.20 (0.11-0.59) K/uL Eos # (Auto) 0.13 (0-0.5) K/uL Baso # (Auto) 0.00 (0-0.2) K/uL Immature Gran # (Auto) 0.11 H (0.00-0.02) K/uL Absolute Nucleated RBC 0.08 H (0-0) K/uL Nucleated RBC % (auto) 0.6 % Neutrophils % (Manual) % Lymphocytes % (Manual) % Monocytes % (Manual) % Eosinophils % (Manual) % Myelocytes % (Man) % Neutrophils # (Manual) (1.4-6.5) K/uL Total Absolute Neuts (1.4-6.5) K/uL Lymphocytes # (Manual) (1.2-3.4) K/uL Total Abs Lymphocytes (1.2-3.4) K/uL Monocytes # (Manual) (0.11-0.59) K/uL Eosinophils # (Manual) (0-0.5) K/uL Myelocytes # (Manual) (0-0) K/uL Platelet Estimate Decreased L (Normal) Giant Platelets Polychromasia 1+ Hypochromasia Present Anisocytosis Microcytosis Present Ovalocytes 1+ Echinocytes 1+ Acanthocytes (Spur) 1+ Haptoglobin PT (9.0-12.0) Seconds INR (0.9-1.1) Fibrinogen < 50 L* (184-400) mg/dl Fibrin Degrad Products Cancelled D-Dimer > 30909 H* (0-500) ug/L FEU Factor VIII Activity Sample Site POC pH (7.35-7.45) POC pCO2 (35-46) mmHg POC pO2 (80-95) mmHg POC HCO3 (19-24) lei/L POC Total CO2 (24-31) mmol/L POC Base Excess (-9-1.8) lei/L ABG pH (Temp Correct) (7.35-7.45) ABG pCO2 (Temp Corrct (35-46) mmHg POC ABG pO2 at Pt Temp POC ABG O2 Sat (90-95) % Sravan Test O2 Delivery Device POC O2 Rate POC FiO2 % Tidal Volume PEEP POC Sodium (135-144) mmol/L Sodium (136-145) mmol/L POC Potassium (3.3-5.0) mmol/L Potassium (3.5-5.1) mmol/L Chloride (98-107) mmol/L Carbon Dioxide (21-32) mmol/L Anion Gap (3-11) BUN (6-23) mg/dl Creatinine (0.6-1.4) mg/dl Est Cr Clr Drug Dosing ml/min Est GFR ( Amer) ml/min Est GFR (Non-Af Amer) ml/min BUN/Creatinine Ratio (10-20) Glucose (70-99(Fasting)) mg/dl Lactate Calcium (8.5-10.1) mg/dl Phosphorus (2.5-4.9) mg/dl Magnesium (1.7-2.4) mg/dl Total Bilirubin (0.2-1.0) mg/dl Direct Bilirubin AST (13-39) U/L ALT (7-52) U/L Alkaline Phosphatase (34-104) U/L Ammonia (18-72) umol/L Lactate Dehydrogenase (86-244) U/L Troponin I High Sens (0-20) pg/ml Total Protein (6.0-8.3) gm/dl Albumin (3.4-5.0) gm/dl Globulin (2.5-4.0) gm/dl Albumin/Globulin Ratio (0.9-2) Procalcitonin (0-0.5) ng/ml Fluid Neutrophils % % Fluid Lymphocytes % % Fluid Eosinophils % % Fluid Basophils % % Fluid Meso/Macro/[place] % % Fluid Comment Peritoneal Color Peritoneal Appearance Peritoneal WBC (0-300) /ul Peritoneal RBC /uL Peritoneal Tot Protein gm/dl Peritoneal Albumin gm/dl Nasal Screen MRSA (PCR) (Negative) Blood Type Antibody Screen Crossmatch 10/21/21 10/21/21 10/21/21 Range/Units Unknown Unknown 23:38 WBC (4.8-10.8) K/uL RBC (4.7-6.1) M/uL Hgb (14.0-18.0) g/dL POC Hgb 9.9 L (14.0-18.0) g/dl Hct (42-52) % POC Hct 29 L (42-52) % MCV (80-100) fL MCH (25-34) pg MCHC (32-36) g/dL RDW Std Deviation (36.4-46.3) fL RDW Coeff of Ronnie (11.5-14.5) % Plt Count (130-400) K/uL Immature Gran % (Auto) % Neut % (Auto) % Lymph % (Auto) % [place] % (Auto) % Eos % (Auto) % Baso % (Auto) % Neut # (Auto) (1.4-6.5) K/uL Lymph # (Auto) (1.2-3.4) K/uL [place] # (Auto) (0.11-0.59) K/uL Eos # (Auto) (0-0.5) K/uL Baso # (Auto) (0-0.2) K/uL Immature Gran # (Auto) (0.00-0.02) K/uL Absolute Nucleated RBC (0-0) K/uL Nucleated RBC % (auto) % Neutrophils % (Manual) % Lymphocytes % (Manual) % Monocytes % (Manual) % Eosinophils % (Manual) % Myelocytes % (Man) % Neutrophils # (Manual) (1.4-6.5) K/uL Total Absolute Neuts (1.4-6.5) K/uL Lymphocytes # (Manual) (1.2-3.4) K/uL Total Abs Lymphocytes (1.2-3.4) K/uL Monocytes # (Manual) (0.11-0.59) K/uL Eosinophils # (Manual) (0-0.5) K/uL Myelocytes # (Manual) (0-0) K/uL Platelet Estimate (Normal) Giant Platelets Polychromasia Hypochromasia Anisocytosis Microcytosis Ovalocytes Echinocytes Acanthocytes (Spur) Haptoglobin PT (9.0-12.0) Seconds INR (0.9-1.1) Fibrinogen (184-400) mg/dl Fibrin Degrad Products D-Dimer (0-500) ug/L FEU Factor VIII Activity Sample Site R Radial POC pH 7.13 L* (7.35-7.45) POC pCO2 68 H (35-46) mmHg POC pO2 327 H (80-95) mmHg POC HCO3 23 (19-24) lei/L POC Total CO2 25 (24-31) mmol/L POC Base Excess -6.0 (-9-1.8) lei/L ABG pH (Temp Correct) 7.140 L* (7.35-7.45) ABG pCO2 (Temp Corrct 66 H (35-46) mmHg POC ABG pO2 at Pt Temp 324 POC ABG O2 Sat 100.0 H (90-95) % Sravan Test Pass O2 Delivery Device Ventilator POC O2 Rate 20 POC FiO2 100 % Tidal Volume 320 PEEP 5 POC Sodium 144 (135-144) mmol/L Sodium (136-145) mmol/L POC Potassium 2.9 L (3.3-5.0) mmol/L Potassium (3.5-5.1) mmol/L Chloride (98-107) mmol/L Carbon Dioxide (21-32) mmol/L Anion Gap (3-11) BUN (6-23) mg/dl Creatinine (0.6-1.4) mg/dl Est Cr Clr Drug Dosing ml/min Est GFR ( Amer) ml/min Est GFR (Non-Af Amer) ml/min BUN/Creatinine Ratio (10-20) Glucose (70-99(Fasting)) mg/dl Lactate Calcium (8.5-10.1) mg/dl Phosphorus (2.5-4.9) mg/dl Magnesium (1.7-2.4) mg/dl Total Bilirubin (0.2-1.0) mg/dl Direct Bilirubin AST (13-39) U/L ALT (7-52) U/L Alkaline Phosphatase (34-104) U/L Ammonia (18-72) umol/L Lactate Dehydrogenase (86-244) U/L Troponin I High Sens (0-20) pg/ml Total Protein (6.0-8.3) gm/dl Albumin (3.4-5.0) gm/dl Globulin (2.5-4.0) gm/dl Albumin/Globulin Ratio (0.9-2) Procalcitonin (0-0.5) ng/ml Fluid Neutrophils % 74 % Fluid Lymphocytes % 8 % Fluid Eosinophils % 0 % Fluid Basophils % 0 % Fluid Meso/Macro/[place] % 18 % Fluid Comment Peritoneal Color CAROLINE Peritoneal Appearance HAZY Peritoneal WBC 52 (0-300) /ul Peritoneal RBC 5000 /uL Peritoneal Tot Protein < 3.0 gm/dl Peritoneal Albumin < 1.5 gm/dl Nasal Screen MRSA (PCR) (Negative) Blood Type Antibody Screen Crossmatch 10/21/21 10/21/21 10/21/21 Range/Units 23:27 23:27 23:27 WBC 16.18 H (4.8-10.8) K/uL RBC 4.49 L (4.7-6.1) M/uL Hgb 8.8 L (14.0-18.0) g/dL POC Hgb (14.0-18.0) g/dl Hct 29.3 L (42-52) % POC Hct (42-52) % MCV 65.3 L (80-100) fL MCH 19.6 L (25-34) pg MCHC 30.0 L (32-36) g/dL RDW Std Deviation 61.4 H (36.4-46.3) fL RDW Coeff of Ronnie 27.3 H (11.5-14.5) % Plt Count 90 L (130-400) K/uL Immature Gran % (Auto) % Neut % (Auto) % Lymph % (Auto) % [place] % (Auto) % Eos % (Auto) % Baso % (Auto) % Neut # (Auto) (1.4-6.5) K/uL Lymph # (Auto) (1.2-3.4) K/uL [place] # (Auto) (0.11-0.59) K/uL Eos # (Auto) (0-0.5) K/uL Baso # (Auto) (0-0.2) K/uL Immature Gran # (Auto) (0.00-0.02) K/uL Absolute Nucleated RBC 0.12 H (0-0) K/uL Nucleated RBC % (auto) 0.7 % Neutrophils % (Manual) 89.3 % Lymphocytes % (Manual) 7.1 % Monocytes % (Manual) 1.8 % Eosinophils % (Manual) 0.9 % Myelocytes % (Man) 0.9 % Neutrophils # (Manual) 14.45 H (1.4-6.5) K/uL Total Absolute Neuts 14.45 H (1.4-6.5) K/uL Lymphocytes # (Manual) 1.15 L (1.2-3.4) K/uL Total Abs Lymphocytes 1.15 L (1.2-3.4) K/uL Monocytes # (Manual) 0.29 (0.11-0.59) K/uL Eosinophils # (Manual) 0.15 (0-0.5) K/uL Myelocytes # (Manual) 0.15 H (0-0) K/uL Platelet Estimate (Normal) Giant Platelets 1+ Polychromasia 1+ Hypochromasia Present Anisocytosis Microcytosis Present Ovalocytes Echinocytes 1+ Acanthocytes (Spur) 1+ Haptoglobin PT (9.0-12.0) Seconds INR (0.9-1.1) Fibrinogen (184-400) mg/dl Fibrin Degrad Products D-Dimer (0-500) ug/L FEU Factor VIII Activity Sample Site POC pH (7.35-7.45) POC pCO2 (35-46) mmHg POC pO2 (80-95) mmHg POC HCO3 (19-24) lei/L POC Total CO2 (24-31) mmol/L POC Base Excess (-9-1.8) lei/L ABG pH (Temp Correct) (7.35-7.45) ABG pCO2 (Temp Corrct (35-46) mmHg POC ABG pO2 at Pt Temp POC ABG O2 Sat (90-95) % Sravan Test O2 Delivery Device POC O2 Rate POC FiO2 % Tidal Volume PEEP POC Sodium (135-144) mmol/L Sodium 142 (136-145) mmol/L POC Potassium (3.3-5.0) mmol/L Potassium 3.2 L (3.5-5.1) mmol/L Chloride 111 H (98-107) mmol/L Carbon Dioxide 20 L (21-32) mmol/L Anion Gap 11 (3-11) BUN 33 H (6-23) mg/dl Creatinine 1.29 (0.6-1.4) mg/dl Est Cr Clr Drug Dosing 51.6 ml/min Est GFR ( Amer) 69.9 ml/min Est GFR (Non-Af Amer) 60.3 ml/min BUN/Creatinine Ratio 25.6 H (10-20) Glucose 90 (70-99(Fasting)) mg/dl Lactate Calcium 7.7 L (8.5-10.1) mg/dl Phosphorus (2.5-4.9) mg/dl Magnesium 1.8 (1.7-2.4) mg/dl Total Bilirubin 1.4 H (0.2-1.0) mg/dl Direct Bilirubin AST 38 (13-39) U/L ALT 22 (7-52) U/L Alkaline Phosphatase 118 H (34-104) U/L Ammonia (18-72) umol/L Lactate Dehydrogenase 310 H (86-244) U/L Troponin I High Sens 124.4 H* D (0-20) pg/ml Total Protein 4.7 L (6.0-8.3) gm/dl Albumin 2.4 L (3.4-5.0) gm/dl Globulin 2.3 L (2.5-4.0) gm/dl Albumin/Globulin Ratio 1.0 (0.9-2) Procalcitonin (0-0.5) ng/ml Fluid Neutrophils % % Fluid Lymphocytes % % Fluid Eosinophils % % Fluid Basophils % % Fluid Meso/Macro/[place] % % Fluid Comment Peritoneal Color Peritoneal Appearance Peritoneal WBC (0-300) /ul Peritoneal RBC /uL Peritoneal Tot Protein gm/dl Peritoneal Albumin gm/dl Nasal Screen MRSA (PCR) (Negative) Blood Type Antibody Screen Crossmatch 10/20/21 Range/Units 16:35 WBC (4.8-10.8) K/uL RBC (4.7-6.1) M/uL Hgb (14.0-18.0) g/dL POC Hgb (14.0-18.0) g/dl Hct (42-52) % POC Hct (42-52) % MCV (80-100) fL MCH (25-34) pg MCHC (32-36) g/dL RDW Std Deviation (36.4-46.3) fL RDW Coeff of Ronnie (11.5-14.5) % Plt Count (130-400) K/uL Immature Gran % (Auto) % Neut % (Auto) % Lymph % (Auto) % [place] % (Auto) % Eos % (Auto) % Baso % (Auto) % Neut # (Auto) (1.4-6.5) K/uL Lymph # (Auto) (1.2-3.4) K/uL [place] # (Auto) (0.11-0.59) K/uL Eos # (Auto) (0-0.5) K/uL Baso # (Auto) (0-0.2) K/uL Immature Gran # (Auto) (0.00-0.02) K/uL Absolute Nucleated RBC (0-0) K/uL Nucleated RBC % (auto) % Neutrophils % (Manual) % Lymphocytes % (Manual) % Monocytes % (Manual) % Eosinophils % (Manual) % Myelocytes % (Man) % Neutrophils # (Manual) (1.4-6.5) K/uL Total Absolute Neuts (1.4-6.5) K/uL Lymphocytes # (Manual) (1.2-3.4) K/uL Total Abs Lymphocytes (1.2-3.4) K/uL Monocytes # (Manual) (0.11-0.59) K/uL Eosinophils # (Manual) (0-0.5) K/uL Myelocytes # (Manual) (0-0) K/uL Platelet Estimate (Normal) Giant Platelets Polychromasia Hypochromasia Anisocytosis Microcytosis Ovalocytes Echinocytes Acanthocytes (Spur) Haptoglobin PT (9.0-12.0) Seconds INR (0.9-1.1) Fibrinogen (184-400) mg/dl Fibrin Degrad Products D-Dimer (0-500) ug/L FEU Factor VIII Activity Sample Site POC pH (7.35-7.45) POC pCO2 (35-46) mmHg POC pO2 (80-95) mmHg POC HCO3 (19-24) lei/L POC Total CO2 (24-31) mmol/L POC Base Excess (-9-1.8) lei/L ABG pH (Temp Correct) (7.35-7.45) ABG pCO2 (Temp Corrct (35-46) mmHg POC ABG pO2 at Pt Temp POC ABG O2 Sat (90-95) % Sravan Test O2 Delivery Device POC O2 Rate POC FiO2 % Tidal Volume PEEP POC Sodium (135-144) mmol/L Sodium (136-145) mmol/L POC Potassium (3.3-5.0) mmol/L Potassium (3.5-5.1) mmol/L Chloride (98-107) mmol/L Carbon Dioxide (21-32) mmol/L Anion Gap (3-11) BUN (6-23) mg/dl Creatinine (0.6-1.4) mg/dl Est Cr Clr Drug Dosing ml/min Est GFR ( Amer) ml/min Est GFR (Non-Af Amer) ml/min BUN/Creatinine Ratio (10-20) Glucose (70-99(Fasting)) mg/dl Lactate Calcium (8.5-10.1) mg/dl Phosphorus (2.5-4.9) mg/dl Magnesium (1.7-2.4) mg/dl Total Bilirubin (0.2-1.0) mg/dl Direct Bilirubin AST (13-39) U/L ALT (7-52) U/L Alkaline Phosphatase (34-104) U/L Ammonia (18-72) umol/L Lactate Dehydrogenase (86-244) U/L Troponin I High Sens (0-20) pg/ml Total Protein (6.0-8.3) gm/dl Albumin (3.4-5.0) gm/dl Globulin (2.5-4.0) gm/dl Albumin/Globulin Ratio (0.9-2) Procalcitonin (0-0.5) ng/ml Fluid Neutrophils % % Fluid Lymphocytes % % Fluid Eosinophils % % Fluid Basophils % % Fluid Meso/Macro/[place] % % Fluid Comment Peritoneal Color Peritoneal Appearance Peritoneal WBC (0-300) /ul Peritoneal RBC /uL Peritoneal Tot Protein gm/dl Peritoneal Albumin gm/dl Nasal Screen MRSA (PCR) (Negative) Blood Type O Positive Antibody Screen NEGATIVE Crossmatch See Detail Medications Administered Current Inpatient Medications Fentanyl Citrate (Fentanyl Citrate 100 Mcg/2 Ml Vial) 25 mcg IV Q2H PRN PRN Reason: Moderate Pain (4,5,6) on NRS Stop: 11/05/21 03:24 Last Admin: 10/22/21 07:09 Dose: 25 mcg Documented by: Thiamine HCl 100 mg/ Syringe 10 mls @ 2 [facility]ls[facility] Stop: 11/20/21 08:59 Last Admin: 10/21/21 07:51 Dose: 2 mls/min Documented by: Folic Acid 1 mg/ Syringe 10 mls @ 5 mls/[facility] [place] Stop: 11/20/21 08:59 Last Admin: 10/21/21 07:51 Dose: 5 mls/min Documented by: Pantoprazole Sodium 40 mg/ (Syringe) 10 mls @ 5 mls/min IV DAILY@1100 [facility] Stop: 11/20/21 10:59 Last Admin: 10/21/21 11:02 Dose: 5 mls/min Documented by: Methylprednisolone 125 mg/ (Syringe) 2 mls @ 1.5 mls/min IV Q6H [facility] Stop: 11/21/21 01:59 Last Admin: 10/22/21 02:34 Dose: 1.5 mls/min Documented by: Norepinephrine Bitartrate (Levophed/D5w) 4 mg in 250 mls @ 11.175 mls/hr IV .[id number] [facility]; Protocol Stop: 11/21/21 03:14 Last Admin: 10/22/21 05:35 Dose: 0.25 mcg/kg/min, 55.9 mls/hr Documented by: Vasopressin 20 units/ Sodium (Chloride) 101 mls @ 12.12 mls/hr IV .[id number] [facility] Stop: 11/21/21 03:29 Last Admin: 10/22/21 03:36 Dose: 0.04 unit/min, 12.1 mls/hr Documented by: Cefepime HCl 2,000 mg/ Syringe 20 mls @ 5 mls/min IV Q12H [facility]; Protocol Stop: 10/29/21 03:59 Last Admin: 10/22/21 04:46 Dose: 5 mls/min Documented by: Phytonadione 10 mg/ Dextrose 51 mls @ 102 mls/hr IV ONE ONE Stop: 10/22/21 08:59 Last Admin: 10/22/21 08:40 Dose: 102 mls/hr Documented by: Sodium Chloride (Nss) 250 mls @ 15 mls/hr IV .[id number] PRN PRN Reason: For Transfusion Stop: 10/22/21 18:19 Sodium Chloride (Nss) 250 mls @ 15 mls/hr IV .[id number] PRN PRN Reason: For Transfusion Stop: 10/22/21 18:24 Lactulose (Lactulose 200gm/700ml Wtr Enema) 200 gm ME Q8H [facility] Stop: 11/20/21 02:59 Last Admin: 10/22/21 05:30 Dose: Not Given Documented by: Magnesium Hydroxide (Magnesium Hydroxide Susp 30 Ml Udc) 30 ml PO Q12H PRN PRN Reason: Constipation Stop: 11/19/21 20:25 Midazolam HCl (Midazolam Hcl 1 Mg/Ml 2ml Vial) 1 mg IV Q2H PRN PRN Reason: RASS goal -1 Stop: 11/21/21 03:24 Last Admin: 10/22/21 07:01 Dose: 1 mg Documented by: Miscellaneous Information (Vancomycin Consult Active) 1 ea N/A UD PRN PRN Reason: Consult Stop: 11/21/21 03:58 Ondansetron HCl (Ondansetron Inj 2 Mg/Ml 2 Ml Vial) 4 mg IV Q6H PRN PRN Reason: Nausea Stop: 11/19/21 20:25 Polyethylene Glycol (Polyethylene (Miralax) 17 Gm Pack) 17 gm PO DAILY PRN PRN Reason: Constipation Stop: 11/19/21 20:25
[2021-10-22 09:09] LABS: INR 2.6 (0.9-1.1)
[2021-10-22 09:31] LABS: Albumin Level 2.2 gm/dl (3.4-5.0); Bilirubin,Total 2.7 mg/dl (0.2-1.0); Total Protein 4.1 gm/dl (6.0-8.3)
[2021-10-22] MEDS ORDERED: ALBUMIN 5% 250 ML IV ONE ×2 (09:40→09:42)
--- NOTE | 2021-10-22 09:41 | Gastroenterology Progress Note ---
Date of Service October 22, 2021 Assessment & Plan (1) Cirrhosis of liver: (2) Crohns disease: (3) AMS (altered mental status): Plan: Pt is a 61 yo male, w hx of Crohn's disease, ELIAN/ANG cirrhosis (MELD 13) complicated by esophageal, gastric varices, anemia, ascites, portal HTN who was admitted with AMS. Workup + leukocytosis w elevated lactate, elevated ammonia and troponin levels. Renal and liver function tests, as well as blood ct at baseline. CXR, Head CT wo acute finding. Blood and urine cx negative. Utox + for opiates and marijuana, ETOH negative. Abd imaging + moderate ascites w abd tender to palpation. Overnight transferred to ICU for rapid decline in mental status and respiratory failure needing intubation, currently on mechanical vent & pressors support. He's also coagulopathic treated w Vit K IV, PRBC & FFP transfusions. Troponin peaked at 124. Repeat chest & abd imaging studies showed bilateral large pleural effusion w pneumonia, large abd ventral hernia w ? ileus vs gastroenteritis. Pt had been getting Lactulose enema and putting out watery stools. Last night, med error occurred, resulting in him receiving Metronidazole suspension via IV line. - Correct coagulopathy & electrolyte imbalance - Continue broad spectrum IV antibiotic coverage for now - US paracentesis w fluid analysis, cx and Albumin IV repletion -> done on 10/21, no sign of SBP - Lactulose enema 300mL q8hrs - IVF and FA/B12 support - Continue PPI IV - Poor prognosis; pt on Full code. Sister (Cele) is primary lathe operator contact lens. Need to have continued discussion with family regarding pt's goals of care - Supportive measures Admission and Anticipated Discharge Date Admission Date: October 20, 2021 Supervising Physician Co-Signing Physician Notes I saw and evaluated the patient in the ICU this morning. The patient was intubated yesterday evening after developing respiratory distress. Of note the patient does have a history of substance abuse with current use of cannabis, narcotics and prior use of alcohol. Recommend against thoracentesis unless a diagnostic thoracentesis is needed to screen for empyema. For the present time we have no additional recommendations other than supportive care. Perhaps the patient may need to be referred to a tertiary center for intensive ICU support and care. Subjective Pt transferred to ICU last night for rapid decline in mental status and respiratory failure needing intubation, currently on mechanical vent & pressors support. He's also coagulopathic, several IV sites bleeding currently getting 1U PRBC and anticipating 3U FFP, Vit K IV. INR 2.2. Plt 69. Review of Systems Review of Systems: Unobtainable due to endotracheal tube Physical Exam Constitutional: + ill appearing and + mechanically ventilated Respiratory: On mechanical vent, diminished bilateral lungs Cardiovascular: HRR Gastrointestinal (Abdomen): Mild distension of abd noted, BS hypoactive Musculoskeletal: Bilateral LE edema Skin: + jaundice Neurologic: Intubated, sedated Results & Data ([facility]) Vital Signs (Past 12 Hours) Vital Signs Temp Pulse Pulse Resp BP BP Pulse Ox 10/22/21 09:18 35.7 C L 95 H 18 135/56 L 94 10/22/21 09:11 35.6 C L 95 H 18 136/72 95 10/22/21 09:00 35.6 C L 83 26 H 96/61 L 100 10/22/21 08:55 35.5 C L 89 19 122/55 L 99 10/22/21 08:35 35.4 C L 83 26 H 107/60 100 10/22/21 08:30 35.3 C L 83 26 H 89/55 L 100 10/22/21 08:25 35.3 C L 85 26 H 91/53 L 98 10/22/21 08:20 35.2 C L 81 26 H 97 10/22/21 08:16 35.2 C L 92 H 29 H 109/62 95 10/22/21 08:10 35.2 C L 99 H 26 H 104/63 97 10/22/21 08:05 35.1 C L 92 H 26 H 108/62 100 10/22/21 08:00 35.0 C L 83 26 H 97/57 L 100 10/22/21 07:55 35.0 C L 84 26 H 76/57 L 99 10/22/21 07:50 34.9 C L 84 26 H 99/60 L 99 10/22/21 07:45 34.9 C L 85 26 H 90/55 L 100 10/22/21 07:40 34.8 C L 80 28 H 92/55 L 100 10/22/21 07:35 34.7 C L 81 26 H 97/58 L 100 10/22/21 07:30 34.7 C L 82 26 H 96/58 L 100 10/22/21 07:25 34.6 C L 81 28 H 92/59 L 98 10/22/21 07:22 80 26 H 99 10/22/21 07:20 34.6 C L 79 26 H 85/54 L 97 10/22/21 07:15 34.5 C L 80 26 H 84/49 L 97 10/22/21 07:10 34.5 C L 86 28 H 92/55 L 95 10/22/21 07:05 34.5 C L 99 H 25 H 105/61 95 10/22/21 07:02 34.4 C L 96 H 24 129/60 100 10/22/21 07:00 34.4 C L 95 H 28 H 91 10/22/21 06:57 34.4 C L 95 H 27 H 85/61 L 96 10/22/21 06:51 34.3 C L 91 H 26 H 119/62 96 10/22/21 06:50 34.3 C L 90 26 H 95 10/22/21 06:45 34.3 C L 82 27 H 112/59 L 97 10/22/21 06:40 34.2 C L 77 29 H 97/58 L 98 10/22/21 06:35 34.2 C L 83 30 H 114/73 97 10/22/21 06:30 34.1 C L 75 27 H 95/57 L 99 10/22/21 06:25 34.1 C L 79 28 H 104/59 L 99 10/22/21 06:20 34.1 C L 74 27 H 95/56 L 97 10/22/21 06:15 34.0 C L 75 26 H 93/56 L 100 10/22/21 06:10 34.0 C L 72 26 H 94/59 L 96 10/22/21 06:06 34.0 C L 84 21 93/65 L 94 10/22/21 06:00 33.9 C L 70 26 H 89/54 L 96 10/22/21 05:55 33.9 C L 71 26 H 90/53 L 97 10/22/21 05:50 33.9 C L 70 26 H 89/54 L 96 10/22/21 05:45 33.9 C L 74 26 H 94/58 L 95 10/22/21 05:40 33.9 C L 75 28 H 92/55 L 97 10/22/21 05:35 33.9 C L 85 27 H 103/61 96 10/22/21 05:30 33.8 C L 86 26 H 98/58 L 96 10/22/21 05:25 33.8 C L 90 29 H 115/72 85 L 10/22/21 05:21 33.8 C L 98 H 24 122/57 L 92 10/22/21 05:20 33.8 C L 96 H 26 H 97 10/22/21 05:10 33.8 C L 87 30 H 97/56 L 93 10/22/21 05:05 33.7 C L 95 H 25 H 117/75 93 10/22/21 05:00 33.7 C L 83 25 H 95/76 L 99 10/22/21 04:56 33.7 C L 84 23 104/50 L 97 10/22/21 04:50 33.7 C L 96 H 20 130/64 98 10/22/21 04:45 33.7 C L 81 27 H 109/60 100 10/22/21 04:44 33.7 C L 81 29 H 129/55 L 98 10/22/21 04:40 33.7 C L 82 28 H 118/52 L 99 10/22/21 04:35 33.6 C L 83 23 113/63 99 10/22/21 04:30 33.6 C L 77 28 H 107/76 99 10/22/21 04:25 33.6 C L 79 23 102/64 99 10/22/21 04:22 33.7 C L 88 29 H 133/55 L 98 10/22/21 04:20 33.6 C L 83 18 100/68 100 10/22/21 04:15 33.7 C L 83 21 102/67 93 10/22/21 04:07 33.6 C L 88 19 117/54 L 92 10/22/21 04:00 74 112/52 L 10/22/21 03:55 98 H 10/22/21 03:50 33.7 C L 92 H 27 H 133/73 90 10/22/21 03:45 33.7 C L 89 26 H 114/64 90 10/22/21 03:40 33.8 C L 91 H 26 H 99/56 L 88 L 05/27/22 03:35 33.8 C L 90 26 H 96/57 L 91 10/22/21 03:30 33.8 C L 83 27 H 89/57 L 89 L 10/22/21 03:25 33.9 C L 88 26 H 76/62 L 10/22/21 03:24 33.9 C L 90 20 89/56 L 92 10/22/21 03:20 33.9 C L 91 H 26 H 89/56 L 10/22/21 03:15 33.9 C L 93 H 26 H 99/60 L 94 10/22/21 03:10 33.9 C L 93 H 26 H 75/48 L 81 L 10/22/21 03:05 33.9 C L 93 H 26 H 90/57 L 86 L 10/22/21 03:00 34.0 C L 94 H 26 H 86/58 L 90 10/22/21 02:55 34.0 C L 96 H 26 H 88/55 L 90 10/22/21 02:51 34.0 C L 98 H 26 H 83/61 L 89 L 10/22/21 02:50 34.0 C L 100 H 26 H 93 10/22/21 02:45 34.0 C L 96 H 26 H 93/64 L 84 L 10/22/21 02:40 34.0 C L 97 H 26 H 92/64 L 96 10/22/21 02:39 34.0 C L 101 H 26 H 92 10/22/21 02:30 34.0 C L 103 H 26 H 78/63 L 88 L 10/22/21 02:25 98 H 26 H 103/67 95 10/22/21 02:20 100 H 23 93/62 L 77 L 10/22/21 02:15 101 H 26 H 85/60 L 97 10/22/21 02:12 94 H 26 H 84/48 L 97 10/22/21 02:10 91 H 26 H 78/50 L 97 10/22/21 02:08 91 H 26 H 81/53 L 96 10/22/21 02:00 93 H 26 H 86/56 L 97 10/22/21 01:57 89/53 L 10/22/21 01:50 96 H 90/53 L 98 10/22/21 01:48 97 H 90/49 L 98 10/22/21 01:40 98 H 99 10/22/21 01:36 97 10/22/21 00:50 93 H 23 99/62 L 99 10/22/21 00:47 94 H 23 95/63 L 99 10/22/21 00:40 101 H 26 H 96 10/22/21 00:30 104 H 26 H 100 10/22/21 00:20 107 H 23 124/77 100 10/22/21 00:10 109 H 26 H 110/69 100 10/22/21 00:04 110 H 26 H 110/71 97 10/22/21 00:00 110 H 26 H 104/44 L 87 L 10/21/21 23:54 111 H 26 H 97/59 L 10/21/21 23:50 118 H 26 H 93 10/21/21 23:45 122 H 26 H 115/73 87 L 10/21/21 23:40 116 H 22 98 10/21/21 23:31 118 H 20 129/74 99 10/21/21 23:30 121 H 20 127/76 100 10/21/21 23:29 127 H 15 117/78 100 10/21/21 23:28 125 H 20 117/74 100 10/21/21 23:27 125 H 29 H 115/77 98 10/21/21 23:26 132 H 27 H 114/79 99 10/21/21 23:25 135 H 16 106/72 10/21/21 23:24 125 H 20 104/67 99 10/21/21 23:23 135 H 18 104/64 98 10/21/21 23:22 133 H 19 87/53 L 96 10/21/21 23:20 133 H 20 72/49 L 97 10/21/21 23:18 129 H 29 H 88/45 L 10/21/21 23:01 36.4 C L 92 H 25 H 92/57 L 63 L 10/21/21 22:17 98 H
[2021-10-22] MEDS ORDERED: ALBUMIN 5% 250 ML IV SCH (09:42)
[2021-10-22 09:44] LABS: iSTAT Potassium 2.8 mmol/L (3.3-5.0); iSTAT Sodium 143 mmol/L (135-144)
[2021-10-22 09:45] LABS: iSTAT Art Bld Gas pCO2 Correct 38 mmHg (35-46); iSTAT Art Bld Gas pH Corrected 7.355 (7.35-7.45); iSTAT Arterial Blood Gas pCO2 43 mmHg (35-46); iSTAT Arterial Blood Gas pH 7.31 (7.35-7.45); iSTAT Arterial Blood Gas pO2 91 mmHg (80-95); iSTAT Arterial Blood Gas pO2 C 75; iSTAT Carbon Dioxide 23 mmol/L (24-31); iSTAT Hematocrit 26 % (42-52); iSTAT Hemoglobin 8.8 g/dl (14.0-18.0)
[2021-10-22 09:46] LABS: iSTAT Allen Test Acceptable; iSTAT Arterial Blood Gas HCO3 22 meg/L (19-24); iSTAT Sample Type Arterial; iSTAT Site R Brachial
[2021-10-22 09:54] LABS: D Dimer > 35200 ug/L FEU (0-500); Fibrinogen < 50 mg/dl (184-400)
[2021-10-22 09:59] LABS: iSTAT Potassium 2.9 mmol/L (3.3-5.0); iSTAT Sodium 142 mmol/L (135-144)
[2021-10-22 10:00] LABS: iSTAT Art Bld Gas pCO2 Correct 33 mmHg (35-46); iSTAT Art Bld Gas pH Corrected 7.383 (7.35-7.45); iSTAT Arterial Blood Gas HCO3 21 meg/L (19-24); iSTAT Arterial Blood Gas pCO2 39 mmHg (35-46); iSTAT Arterial Blood Gas pH 7.34 (7.35-7.45); iSTAT Arterial Blood Gas pO2 59 mmHg (80-95); iSTAT Arterial Blood Gas pO2 C 46; iSTAT Carbon Dioxide 22 mmol/L (24-31); iSTAT Hematocrit 25 % (42-52); iSTAT Hemoglobin 8.5 g/dl (14.0-18.0)
[2021-10-22 10:01] LABS: Patient Temperature 33.6; iSTAT Allen Test Not Performed; iSTAT Sample Type Arterial; iSTAT Site Art Line
[2021-10-22 10:02] LABS: iSTAT SpO2 98
[2021-10-22 10:32] LABS: iSTAT Art Bld Gas pCO2 Correct 33 mmHg (35-46); iSTAT Art Bld Gas pH Corrected 7.374 (7.35-7.45); iSTAT Arterial Blood Gas HCO3 20 meg/L (19-24); iSTAT Arterial Blood Gas pCO2 35 mmHg (35-46); iSTAT Arterial Blood Gas pH 7.36 (7.35-7.45); iSTAT Arterial Blood Gas pO2 62 mmHg (80-95); iSTAT Arterial Blood Gas pO2 C 58; iSTAT Carbon Dioxide 21 mmol/L (24-31); iSTAT FiO2 40 %; iSTAT Hematocrit 23 % (42-52); iSTAT Hemoglobin 7.8 g/dl (14.0-18.0); iSTAT Site Art Line; iSTAT Sodium 142 mmol/L (135-144)
[2021-10-22] MEDS ORDERED: MEROPENEM CONSULT ACTIVE PRN ×2 (10:48→11:15)
[2021-10-22] MEDS: FOLIC ACID 1 MG in SYRINGE 9.8 ML IV SCH (10:54)
[2021-10-22] MEDS: THIAMINE HCL 100 MG in SYRINGE 9 ML IV SCH (10:54)
--- NOTE | 2021-10-22 11:40 | Pharmacy Report ---
Pharmacy PK ABX Note - Date of Service October 22, 2021 - Assessment and Plan Assessment * 61 year old M receiving meropenem and vancomycin for PNA, SBP prophylaxis and exposure of bloodstream from oral metronidazole suspension given intravenously overnight last night * Pertinient culture data includes positive MRSA nasal swab * Patient currently in ICU being treated aggressively for ?DIC and requiring pressor support * SCr with notable increase from yesterday and UOP trending down per ICU rounds discussion. Will dose vancomycin via level for now Plan * Random vancomycin level later today. Draw time was delayed due to blood administration (per RN), therefore will leave with 2nd shift pharmacist (August) to follow up Pharmacy will continue to follow and will adjust dose/frequency as necessary. Thank you. Pharmacy has transitioned to AUC monitoring for vancomycin. AUC/JOSHUA is the preferred PK/PD target and is associated with decreased risk of nephrotoxicity compared to traditional trough targets.
[2021-10-22] MEDS: MEROPENEM 500 MG in SYRINGE 0 ML IV SCH ×2 (12:43→19:37)
[2021-10-22] MEDS: PANTOprazole 40 MG in SYRINGE 0 ML IV SCH ×2 (12:47→22:03)
[2021-10-22 15:39] LABS: Albumin Globulin Ratio 1.3 (0.9-2); Albumin Level 2.8 gm/dl (3.4-5.0); BUN Creatinine Ratio 26.3 (10-20); Bilirubin,Total 3.5 mg/dl (0.2-1.0); Calcium 8.2 mg/dl (8.5-10.1); Creatinine Clr Calc Pharmacy 50.1 ml/min; Est GFR (African American) 67.3 ml/min; Est GFR (Non-African American) 58.1 ml/min; Globulin 2.2 gm/dl (2.5-4.0); Potassium 3.2 mmol/L (3.5-5.1)
[2021-10-22 15:49] LABS: INR 1.4 (0.9-1.1); Prothrombin Time 15.1 Seconds (9.0-12.0)
[2021-10-22 15:56] LABS: Fibrinogen 186 mg/dl (184-400)
[2021-10-22 15:58] LABS: D Dimer > 35200 ug/L FEU (0-500)
[2021-10-22] MEDS ORDERED: MAGNESIUM SULFATE / D5W 1 GM/100 ML BAG IV ONE (16:02)
[2021-10-22] MEDS: POTASSIUM CHLORIDE / WTR 20 MEQ/100 ML PLCT IV SCH ×2 (16:45→18:25)
[2021-10-22] MEDS ORDERED: VANCOMYCIN HCL 1,000 MG in SODIUM CHLORIDE 0.9% 250 ML IV SCH (17:00)
[2021-10-22] MEDS: ICU ELECTROLYTE REPLACEMENT PROTOCOL SCH (18:17)
[2021-10-22 19:30] LABS: Hematocrit (blood only) 22.1 % (42-52); Hemoglobin 6.8 g/dL (14.0-18.0); Mean Corpuscular Hemoglobin 20.5 pg (25-34); Mean Corpuscular Hgb Conc 30.8 g/dL (32-36); Mean Corpuscular Volume 66.6 fL (80-100); Platelet Count 59 K/uL (130-400); RDW Coefficient of Variation 26.3 % (11.5-14.5); RDW Standard Deviation 61.8 fL (36.4-46.3); Red Blood Count 3.32 M/uL (4.7-6.1); White Blood Count 15.87 K/uL (4.8-10.8)
[2021-10-22 19:41] LABS: Acanthocytes 1+; Anisocytosis Present; Basophils # (auto) 0.01 K/uL (0-0.2); Basophils % (auto) 0.1 %; Hypochromasia Present; Immature Granulocytes # (auto) 0.14 K/uL (0.00-0.02); Immature Granulocytes % (auto) 0.9 %; Lymphocytes # (auto) 0.53 K/uL (1.2-3.4); Lymphocytes % (auto) 3.3 %; Microcytosis Present; Monocytes % (auto) 6.3 %; Neutrophils # (auto) 14.19 K/uL (1.4-6.5); Neutrophils % (auto) 89.4 %; Ovalocytes 1+; Platelet Estimate Decreased (Normal); Polychromasia 1+
--- NOTE | 2021-10-22 20:03 | Consultation Report ---
DATE OF SERVICE: 10/22/2021. REASON FOR CONSULT: DIC. HISTORY OF PRESENT ILLNESS: Mr. Armenta is a 61-year-old gentleman who presented to the ED on 10/20/2021 after being found unresponsive at home by a family member. Of note, he has a medical history significant for liver cirrhosis secondary to alcohol abuse with resultant portal hypertension, esophageal varices. He also has a history of severe malnutrition, Crohn's disease, hepatitis B. At the time of my evaluation of patient today, he was intubated, but responded to calling his name. On arrival to the ER, he was found to be unresponsive with labs revealing ammonia level of 96, elevated lactic acid of 3.6, elevated troponin of 23. Labs were significant for mild leukocytosis, white count of 11.8, anemia with hemoglobin of 8.7 and hematocrit of 28.2 and normal platelet count of 146,000. CT head obtained on admission was negative for acute intracranial findings. He also had a CT abdomen and pelvis, which revealed moderate ascites and anasarca. The patient had to be intubated in the ED for airway protection and respiratory failure. Prior to this, it was noted that the patient had received oral Flagyl in the intravenous form. Shortly afterwards, the patient was noted to decline clinically and required intubation. He was subsequently noted to have abnormal bleeding from IV sites with labs demonstrating low fibrinogen of less than 50, thrombocytopenia with platelet count of 69,000, elevated D-dimer of greater than 35,000, elevated fibrin degradation product of greater than 40. Coagulation panel revealed PT of 26.0 and INR of 2.6. He has received several units of FFP, cryoprecipitate, vitamin K and tranexamic acid. PAST MEDICAL HISTORY: Unable to obtain. PAST SURGICAL HISTORY: Unable to obtain. HOME MEDICATIONS: Unable to obtain. ALLERGIES: Unable to obtain that information. SOCIAL HISTORY: Unable to obtain. REVIEW OF SYSTEMS: Unable to obtain due to patient's altered mental status and intubation. PHYSICAL EXAMINATION: VITAL SIGNS: Blood pressure 133/62, heart rate 73, respiratory rate 22, temperature 37, oxygen saturation 98% on mechanical ventilation. RESPIRATORY: Lung sounds were generally decreased bilaterally. CARDIOVASCULAR: Heart was regular rate and rhythm without significant murmur, gallops or rubs. GASTROINTESTINAL: Abdomen is distended. Unable to appreciate hepatosplenomegaly due to abdominal distention. EXTREMITIES: Mild pitting edema bilaterally. LABORATORY DATA: Significant for CBC on 10/22/2021 significant for white cell count of 17,000, hemoglobin of 7.3, hematocrit of 23, MCV of 65.6, platelet count of 69,000. PT 26, INR 2.6. Fibrinogen less than 50. FDP greater than 40. D-dimer greater than 35,200. Chemistry significant for sodium of 140, potassium 3.3, chloride 109, bicarbonate 19, anion gap of 12, BUN of 35, creatinine 1.39. Lactate 4.6. IMAGING STUDIES: CT head on 10/22/2021, impression: 1. No acute intracranial hemorrhage, evidence of acute territorial infarction or other acute intracranial disease process. 2. Arteriovenous malformation is in the left temporal lobe. CT abdomen and pelvis on 10/22/2021, impression: 1. Marked abdominal and pelvic ascites. 2. There is a large ventral abdominal wall hernia with CT findings characteristic of ileus versus gastroenteritis. 3. Cirrhosis of the liver with mild splenomegaly and esophageal varices. 4. Moderate-sized bilateral pleural effusions with compressive atelectasis/collapse of both lung bases. ASSESSMENT: 1. Disseminated intravascular coagulation. 2. Acute encephalopathy. 3. Microcytic anemia. 4. Leukocytosis. 5. Liver cirrhosis secondary to alcohol/hepatitis B. Unfortunate 61-year-old gentleman with advanced liver cirrhosis who presented with metabolic encephalopathy and subsequently required intubation for altered mental status as well as hypoxia. Labs are concerning for disseminated intravascular coagulation with low fibrinogen, elevated D-dimer, low platelet count, prolonged PT/INR as well as abnormal bleeding from multiple peripheral IV access sites. Would recommend obtaining peripheral smear review with pathology to evaluate for schistocytes. Agree with current management including transfusion with fresh frozen plasma, cryoprecipitate, vitamin K and tranexamic acid. May also consider giving platelets as it is unclear how functional his platelets are at this time. May also consider nephrology consultation for possible evaluation of whether the patient will be a candidate for hemodialysis given the wrong administration of oral Flagyl. PLAN: 1. Recommend peripheral smear review with pathology to evaluate for schistocytes. 2. Agree with cryoprecipitate with goal of maintaining fibrinogen around 150- 200, but at least greater than 100. 3. Continue with tranexamic acid. He may require about 200 mg per hour infusion if bleeding persists. 4. Consider platelet transfusion despite platelet count greater than 50,000 as I suspect his current platelets are not fully functional. 5. Recommend checking anemia panel with iron, vitamin B12 and folate levels as he would likely need repletion given severe microcytosis. Transfuse for hemoglobin less than 8. Could also give IV Venofer for iron deficiency. Thank you for this consult. Hematology will continue following the patient while hospitalized. Please feel free to call if you have any further questions. Job ID: [id number] [facility]ITAL[facility]
--- NOTE | 2021-10-22 20:30 | Hospitalist Progress Note ---
Date of Service October 22, 2021 Assessment & Plan Admission and Anticipated Discharge Date Admission Date: October 20, 2021 Subjective Last night got called that patient was given iv flagyl instead of po falgyl and his oxygenation dropping. He was saturating 70% on 15 litres while seems he was on 4lts before. Patient was here for hepatic encephalopathy.. Thought probably volume overload from iv flagyl. Advised to place on bipap, neb tx and lasix but soon radha sommers was called. Went and saw the patient and he was having pulse but was apneic. Was placed on bipap but was saturating only 40% . Transferred to ICU and was intubated and started on levophed drip . Hemodynamics seemed stabilized at that time. At that time I was notified actually oral flagyl solution was given through IV by error. ICU discussed with pharmacy and poison control.Close monitor in ICU. Results & Data Results & Data ([facility]) Vital Signs (Past 12 Hours) Vital Signs Temp Pulse Resp BP Pulse Ox 10/22/21 18:30 36.7 C 93 H 19 107/63 97 10/22/21 18:00 36.8 C 92 H 24 104/57 L 95 10/22/21 17:30 37.0 C 68 24 109/61 98 10/22/21 17:00 37.0 C 70 24 114/59 L 98 10/22/21 16:30 37.0 C 75 24 112/60 98 10/22/21 16:00 37.0 C 70 24 107/57 L 98 10/22/21 15:42 37 C 70 22 133/62 98 10/22/21 15:30 36.9 C 77 24 110/60 97 10/22/21 15:26 36.9 C 71 22 137/61 97 10/22/21 15:00 36.9 C 85 22 114/55 L 99 10/22/21 14:53 80 25 H 98 10/22/21 14:34 36.9 C 75 22 138/61 98 10/22/21 14:30 36.9 C 78 24 111/63 97 10/22/21 14:00 36.9 C 76 24 105/59 L 97 10/22/21 13:49 73 10/22/21 13:30 36.9 C 80 24 101/54 L 96 10/22/21 13:00 36.8 C 84 22 128/58 L 97 10/22/21 12:37 36.7 C 96 H 24 134/58 L 92 10/22/21 12:35 36.7 C 100 H 24 140/64 92 10/22/21 12:30 36.7 C 97 H 24 107/59 L 88 L 10/22/21 12:00 36.5 C 75 24 102/56 L 95 10/22/21 11:36 88 24 96 10/22/21 11:30 36.4 C L 78 24 102/56 L 95 10/22/21 11:00 36.2 C L 84 24 103/59 L 97 10/22/21 10:30 36.1 C L 77 24 95/59 L 96 10/22/21 10:21 35.9 C L 74 20 117/56 L 96 10/22/21 10:17 36 C L 83 20 126/59 L 95 10/22/21 10:00 35.9 C L 79 26 H 102/59 L 96 10/22/21 09:30 35.8 C L 87 26 H 93/55 L 97 10/22/21 09:26 35.8 C L 85 20 120/56 L 97 10/22/21 09:18 35.7 C L 95 H 18 135/56 L 94 10/22/21 09:11 35.6 C L 95 H 18 136/72 95 10/22/21 09:00 35.6 C L 83 26 H 96/61 L 100 10/22/21 08:55 35.5 C L 89 19 122/55 L 99 10/22/21 08:35 35.4 C L 83 26 H 107/60 100 10/22/21 08:30 35.3 C L 83 26 H 89/55 L 100 10/22/21 08:25 35.3 C L 85 26 H 91/53 L 98
[2021-10-22] MEDS ORDERED: STAT IV STA (21:12)
[2021-10-22] MEDS ORDERED: OCTREOTIDE ACETATE 50 MCG in SYRINGE 9.5 ML IV ONE (21:30)
[2021-10-22] MEDS: OCTREOTIDE ACETATE 500 MCG in DEXTROSE 5% 100 ML IV SCH (22:02)
[2021-10-22] MEDS: dexMEDEtomidine 200 MCG/50 ML BAG IV SCH (22:54)
[2021-10-23] MEDS: fentaNYL citrate 2,500 MCG/250 ML BAG IV SCH (01:09)
[2021-10-23] MEDS: NOREPINEPHRINE/D5W 4 MG/250 ML PLCT IV SCH (01:09)
[2021-10-23] MEDS: MEROPENEM 500 MG in SYRINGE 0 ML IV SCH ×4 (02:50→20:28)
[2021-10-23] MEDS: VASOPRESSIN 20 UNITS in 0.9 % SODIUM CHLORIDE 100 ML IV SCH ×2 (02:50→11:06)
[2021-10-23] MEDS: methylPREDNISolone 125 MG in SYRINGE 0 ML IV SCH ×2 (02:50→08:08)
[2021-10-23] MEDS: LACTULOSE 200GM/700ML WTR ENEMA PR SCH ×2 (02:51→11:16)
[2021-10-23 04:02] LABS: Mean Corpuscular Hgb Conc 31.7 g/dL (32-36)
[2021-10-23 04:14] LABS: Hematocrit (blood only) 26.8 % (42-52); Hemoglobin 8.5 g/dL (14.0-18.0); Mean Corpuscular Hemoglobin 22.6 pg (25-34); Mean Corpuscular Volume 71.3 fL (80-100); Platelet Count 31 K/uL (130-400); RDW Coefficient of Variation 26.4 % (11.5-14.5); RDW Standard Deviation 68.4 fL (36.4-46.3); Red Blood Count 3.76 M/uL (4.7-6.1); White Blood Count 7.52 K/uL (4.8-10.8)
[2021-10-23 04:16] LABS: Anisocytosis Present; Hypochromasia Present; Immature Granulocytes # (auto) 0.04 K/uL (0.00-0.02); Immature Granulocytes % (auto) 0.5 %; Lymphocytes # (auto) 0.37 K/uL (1.2-3.4); Lymphocytes % (auto) 4.9 %; Monocytes % (auto) 5.3 %; Neutrophils # (auto) 6.71 K/uL (1.4-6.5); Neutrophils % (auto) 89.3 %; Platelet Estimate SIGNIFIC DECREASED (Normal); Target Cells 1+
[2021-10-23 04:18] LABS: Albumin Globulin Ratio 1.3 (0.9-2); Albumin Level 2.5 gm/dl (3.4-5.0); BUN Creatinine Ratio 28.8 (10-20); Bilirubin,Total 3.9 mg/dl (0.2-1.0); Creatinine Clr Calc Pharmacy 53.3 ml/min; Est GFR (African American) 72.6 ml/min; Est GFR (Non-African American) 62.6 ml/min; Potassium 3.7 mmol/L (3.5-5.1); Total Protein 4.5 gm/dl (6.0-8.3)
[2021-10-23 04:19] LABS: BUN Creatinine Ratio 29.8 (10-20); Est GFR (African American) 75.5 ml/min; Est GFR (Non-African American) 65.1 ml/min; Magnesium 1.9 mg/dl (1.7-2.4); Phosphorus 4.2 mg/dl (2.5-4.9); Potassium 3.7 mmol/L (3.5-5.1)
[2021-10-23 04:43] LABS: Fibrinogen 162 mg/dl (184-400); INR 1.6 (0.9-1.1)
[2021-10-23 04:49] LABS: Fibrinogen 166 mg/dl (184-400); INR 1.6 (0.9-1.1)
[2021-10-23] MEDS: ICU ELECTROLYTE REPLACEMENT PROTOCOL SCH ×2 (05:15→16:39)
[2021-10-23 05:35] LABS: iSTAT Art Bld Gas pCO2 Correct 38 mmHg (35-46); iSTAT Art Bld Gas pH Corrected 7.399 (7.35-7.45); iSTAT Arterial Blood Gas HCO3 24 meg/L (19-24); iSTAT Arterial Blood Gas pCO2 38 mmHg (35-46); iSTAT Arterial Blood Gas pO2 73 mmHg (80-95); iSTAT Arterial Blood Gas pO2 C 73; iSTAT Carbon Dioxide 25 mmol/L (24-31); iSTAT FiO2 40 %; iSTAT Hematocrit 26 % (42-52); iSTAT Hemoglobin 8.8 g/dl (14.0-18.0); iSTAT Potassium 3.7 mmol/L (3.3-5.0); iSTAT Site Art Line; iSTAT Sodium 139 mmol/L (135-144)
[2021-10-23 06:03] LABS: D Dimer > 35200 ug/L FEU (0-500)
[2021-10-23] MEDS: OCTREOTIDE ACETATE 500 MCG in DEXTROSE 5% 100 ML IV SCH ×2 (06:30→16:39)
--- NOTE | 2021-10-23 07:39 | XRay Report ---
SINGLE VIEW CHEST CLINICAL HISTORY: Follow-up airspace consolidation. FINDINGS: An AP, portable, upright chest radiograph is compared to chest x-ray and chest CT dated 09/27. An endotracheal tube is unchanged in position. The heart is top normal for projection. Emphys gilles and chronic interstitial thickening is similar to previous. There are layering pleural effusions. Multifocal airspace consolidation is seen throughout both lungs. No pneumothorax is seen. The skelet al structures are osteopenic. The bony thorax is grossly intact. IMPRESSION: 1. An endotracheal tube is unchanged in position. 2. Emphysema. 3. Multifocal airspace consolidation is similar appearance to yesterday. 4. Layering pleural effusions. ACT 112: Negative or not required by law. Electronically signed by: Herson Alvarez M.D. 10/23/2021 7:38 AM
[2021-10-23] MEDS: dexMEDEtomidine 200 MCG/50 ML BAG IV SCH (07:49)
[2021-10-23] MEDS ORDERED: VANCOMYCIN HCL 1,000 MG in SODIUM CHLORIDE 0.9% 250 ML IV SCH (08:00)
[2021-10-23] MEDS ORDERED: SODIUM CHLORIDE 0.9% 250 ML IV PRN (08:03)
[2021-10-23] MEDS ORDERED: PHYTONADIONE 5 MG in DEXTROSE 5% 50 ML IV STA (08:09)
--- NOTE | 2021-10-23 08:20 | Critical Care Progress Note ---
Date of Service October 23, 2021 Assessment & Plan (1) Admitted to intensive care unit: (2) Respiratory failure: (3) Cirrhosis of liver: (4) DIC (disseminated intravascular coagulation): (5) AMS (altered mental status): Plan: 61-year-old male with a past medical history of cirrhosis, hepatic encephalopathy, Crohn's disease and ankylosing spondylitis who presented to the hospital due to portosystemic encephalopathy. Unfortunately, during this hospital stay, there were some medical air in which she received Flagyl that was meant to be given via a p.o. route through the IV. Shortly after he developed signs of DIC and worsening respiratory failure. He was moved to the ICU and has since stabilized. Neurologic: Avoid sedating medications. The patient is extubated. We will need to restart lactulose given his hyperammonemia. Continue thiamine and folic acid. Pulmonary: Wean supplemental oxygen as able. Patient has multifocal infiltrates on chest x-ray which may be related to aspiration pneumonia and embolization of medication from the medication error. Only on Solu-Medrol for the pulmonary process. Extubated 10/23/2021. Cardiovascular: Maintain mean arterial pressure above 65. Currently on low-dose Levophed and vasopressin. Echo reviewed with a normal LVEF. Gastrointestinal: History of cirrhosis. Continue lactulose. Continue Protonix and octreotide drip given concerns of GI bleed. NPO until evaluated by speech therapy. Renal: No significant issues at present. Continue monitoring urine output. Replace electrolytes per protocol. Infectious disease: Continue broad-spectrum antibiotics. Cultures negative thus far. Hematologic: Findings concerning for DIC which appear to be improving. Status post 1 unit of packed RBC yesterday. We will give an additional unit of platelets today to maintain platelet count above 50,000. We will also give an additional 5 mg of vitamin K today given that his INR is creeping up. We will hold on further cryoprecipitate at this time. Endocrine: We will wean his Solu-Medrol from 125 mg every 6 hours to 80 mg, 3 times daily. Lines and tubes: Right femoral vein central line and femoral artery central line in place on 10/22/2021. VTE prophylaxis: SCDs CODE STATUS: Full Family at bedside: Not available at bedside today. Extensively updated yesterday in person. Disposition: Likely remain in the ICU I have personally spent 42 minutes of critical care time in the direct management of this patient. This is a life/limb threatening event. This includes time spent evaluating patient, direct bedside care, chart review, placing orders, interpretation of diagnostic studies, discussion with consultants, patient, and family members, as well as other required patient management activities. This time is exclusive of all separately billable procedures, and teaching time and separate from and in addition to any other critical care service time. Thank you for allowing us to participate in the care of this patient. Admission and Anticipated Discharge Date Admission Date: October 20, 2021 Subjective Patient's hemodynamic parameters have improved substantially. We are weaning down Levophed. He remains on vasopressin. He was placed on a spontaneous breathing trial and did very well. He was ultimately extubated to an oxygen mask and is currently following commands. He continues to have some oozing from the prior paracentesis site. No fevers or chills overnight. Review of Systems Review of Systems: All systems reviewed & are unremarkable except as noted in HPI & below Physical Exam Physical Exam: Constitutional: Frail-appearing male who is thin kyphotic appearing Eyes: Pupils are equal round and reactive to light. Conjunctivae are normal. Anicteric sclera. Ears nose, mouth and throat: Mallampati class 2. Normal posterior oropharynx. Uvula is midline. Neck: Trachea is midline. Visual inspection is normal. Respiratory: Clear to auscultation bilaterally. No use of accessory muscles. No significant clubbing noted. Cardiovascular: Regular rate and rhythm. No murmurs. Gastrointestinal: Protuberant abdomen. Paracentesis puncture site appears to be losing ascitic fluid. Musculoskeletal: No cyanosis. Patient is able to move all extremities. Strength is 5 out of 5 in the upper and lower extremities. Skin: No rashes, warm dry and intact. Neurologic: Follows commands. Nonfocal. Psychiatric: Alert and oriented x3 with a euthymic affect. Results & Data Results & Data ([facility]) Vital Signs (Past 12 Hours) Vital Signs Temp Pulse Resp BP Pulse Ox 10/23/21 08:00 36.4 C L 57 L 27 H 103/51 L 93 10/23/21 07:35 55 L 11 L 88 L 10/23/21 07:30 36.5 C 57 L 21 82/50 L 90 10/23/21 07:00 36.5 C 55 L 20 97/55 L 87 L 10/23/21 06:40 36.6 C 50 L 20 92 10/23/21 06:30 36.6 C 54 L 20 103/57 L 92 10/23/21 06:20 36.7 C 46 L 20 92 10/23/21 06:10 36.7 C 48 L 20 92 10/23/21 06:00 36.8 C 46 L 20 90/53 L 91 10/23/21 05:30 36.9 C 49 L 20 92/51 L 93 10/23/21 05:00 37.1 C 53 L 20 89/53 L 97 10/23/21 04:50 37.1 C 61 20 96 10/23/21 04:40 37.2 C 75 21 94 10/23/21 04:30 37.2 C 51 L 20 94/54 L 97 10/23/21 04:20 37.2 C 49 L 20 98 10/23/21 04:10 37.2 C 48 L 20 96 10/23/21 04:00 37.2 C 51 L 20 88/50 L 96 10/23/21 03:50 37.1 C 51 L 20 97 10/23/21 03:40 37.1 C 52 L 20 96 10/23/21 03:30 37.0 C 51 L 20 88/48 L 96 10/23/21 03:20 36.8 C 51 L 20 97 10/23/21 03:10 36.7 C 51 L 20 97 10/23/21 03:00 36.6 C 51 L 20 88/51 L 98 10/23/21 02:50 36.5 C 51 L 20 98 10/23/21 02:40 36.4 C L 51 L 20 98 10/23/21 02:30 36.3 C L 51 L 20 85/50 L 97 10/23/21 02:20 36.3 C L 52 L 20 98 10/23/21 02:10 36.2 C L 53 L 20 97 10/23/21 02:00 36.2 C L 52 L 20 88/52 L 96 10/23/21 01:50 36.2 C L 57 L 20 96 10/23/21 01:45 36.2 C L 60 20 95 10/23/21 01:30 36.2 C L 59 L 20 106/64 97 10/23/21 01:17 36.2 C L 54 L 20 108/48 L 96 10/23/21 01:15 36.2 C L 60 20 96 10/23/21 01:00 36.3 C L 58 L 20 113/63 96 10/23/21 00:47 36.3 C L 53 L 20 105/48 L 95 10/23/21 00:45 36.3 C L 54 L 20 94 10/23/21 00:32 36.3 C L 53 L 20 107/48 L 94 10/23/21 00:30 36.3 C L 54 L 20 97/55 L 95 10/23/21 00:20 36.4 C L 66 20 91 10/23/21 00:14 36.4 C L 63 20 121/56 L 93 10/23/21 00:10 36.4 C L 62 20 96 10/23/21 00:04 36.4 C L 60 17 112/51 L 94 10/23/21 00:00 36.4 C L 65 20 100/60 95 10/22/21 23:50 36.4 C L 59 L 20 95 10/22/21 23:40 36.4 C L 71 21 94 10/22/21 23:30 36.4 C L 65 20 103/56 L 95 10/22/21 23:20 36.4 C L 65 20 95 10/22/21 23:10 36.4 C L 67 17 95 10/22/21 23:06 36.4 C L 66 17 113/51 L 96 10/22/21 23:00 36.5 C 69 20 91/53 L 95 10/22/21 22:50 36.5 C 68 20 94 10/22/21 22:40 36.5 C 70 17 96 10/22/21 22:36 36.5 C 71 20 115/52 L 94 10/22/21 22:30 36.5 C 70 20 101/54 L 94 10/22/21 22:21 36.5 C 71 22 110/55 L 94 10/22/21 22:20 36.5 C 72 21 93 10/22/21 22:12 36.6 C 69 21 128/60 93 10/22/21 22:10 36.5 C 64 18 89 L 10/22/21 22:03 36.6 C 76 20 116/80 91 10/22/21 22:00 36.6 C 73 20 102/53 L 95 10/22/21 21:50 36.7 C 108 H 29 H 96 10/22/21 21:40 36.7 C 73 19 93 10/22/21 21:30 36.7 C 89 20 112/54 L 93 10/22/21 21:20 36.7 C 74 20 92 10/22/21 21:10 36.7 C 73 18 93 10/22/21 21:00 36.7 C 70 20 117/58 L 93 10/22/21 20:56 68 10/22/21 20:50 36.7 C 70 18 92 10/22/21 20:40 36.7 C 82 23 92 10/22/21 20:30 36.7 C 75 22 103/58 L 93 10/22/21 20:20 36.7 C 68 20 92 10/22/21 20:10 36.6 C 72 20 92 Coding Level of Care Code Critical Care 1st 30-74 mins Diagnoses Admitted to intensive care unit Z78.9 Respiratory failure J96.90 Cirrhosis of liver K74.60 DIC (disseminated intravascular coagulation) D65 AMS (altered mental status) R41.82 Time Spent (min) 42
--- NOTE | 2021-10-23 08:51 | Hospitalist Progress Note ---
Date of Service October 23, 2021 Assessment & Plan (1) Hepatic encephalopathy: (2) Cirrhosis of liver: (3) Abdominal ascites: (4) Lactic acid acidosis: (5) Elevated troponin: (6) Chronic anemia: Plan: 61 yo M who who has significant past medical history of alcoholic cirrhosis, portal hypertension, esophageal varices, chronic anemia, severe malnutrition, ankylosing spondylitis, history of Crohn's, hx of SBO, GERD, NOLBERTO, hepatitis B, tobacco abuse, history of alcohol abuse presents to ED secondary to confusion. He was brought in by EMS, as he was found by a family member unresponsive. Hepatic encephalopathy Cirrhosis of liver Lactic acidosis Abdominal ascites Admitted to PCU Lactulose enema 2 g every 8 hours Recommend adding rifaximin when able to tolerate p.o. Repeat LFTs, INR and ammonia in a.m. - > ammonia down to 62 urine drug tox -positive for opiates and marijuana, pt takes chronic opiates but no signs of respiratory depression on admission blood cultures pending, urine ordered Started with IV Rocephin for SBP prophylaxis, on GI eval, concern for SBP (patient allergic to penicillin, therefore could not broaden to Zosyn, Flagyl added) IV Thiamine, Folic Acid and PPI Obtained Ultrasound of abdomen for ascites IMPRESSION: Moderate abdominal and pelvic ascites. CT abdomen pelvis IMPRESSION: 1. Near nondiagnostic evaluation of the abdomen and pelvis due to lack of contrast and lack of fat planes. 2. Cirrhosis. Moderate ascites. Anasarca. 3. No bowel obstruction. 4. Small bowel wall thickening. This is nonspecific although could be related to portal hypertension. 5. Small bilateral pleural effusions. Gastroenterology consulted, per their note: (pls refer to original note for further detail) Concern for possible SBP, ultrasound-guided paracentesis ordered, follow cultx, IV albumin Continue broad-spectrum antibiotics, IV PPI Troponin elevated, continue to trend, if continues to be elevated recommend cardiology consult Condition is worrisome, and family was informed 10/21 -WBC elevated today at 17,000, considering Zosyn instead of ceftriaxone, however patient has penicillin allergy. Will add Flagyl. We will try to avoid IV, due to fluid overload/anasarca/ascites. Patient is able to answer some questions appropriately, may tolerate p.o. 10/22 Overnight patient became code purple, hypoxic, required intubation and transfer to ICU. Possibly related to medication error, p.o. Flagyl given as IV. Patient was transferred to ICU, currently intubated, sedated, on pressors. Overnight also noted bleeding from IV sites, patient in DIC. Auditing Coder consulted with hematology. Patient is currently receiving FFP, cryo, 1 unit of PRBC. Patient underwent ultrasound-guided paracentesis yesterday, no signs of SBP. CT abdomen pelvis repeated, CT chest and CT head also obtained. CT abdomen shows significant abdominal and pelvic ascites, and large ventral abdominal wall hernia, with findings consistent with ileus versus gastroenteritis. Cirrhosis, esophageal varices, pleural effusions. See full detail in radiology report. CTA abd. pelvis IMPRESSION: 1. Marked abdominal and pelvic ascites. 2. There is a large ventral abdominal wall hernia with CT findings characteristic of an ileus versus gastroenteritis. 3. Cirrhosis of the liver with mild splenomegaly and esophageal varices. 4. Moderate sized bilateral pleural effusions with compressive atelectasis/collapse of both lung bases. 5. Additional nonacute findings are delineated above. CTA chest Impression: 1. No CTA evidence for pulmonary embolus. 2. Moderately large bilateral pleural effusions with compressive atelectasis/collapse involving both lower lobes. This accounts for the suspected vascular congestion on portable chest radiograph. There is no evidence for pulmonary edema. 3. Bilateral upper lobe alveolar opacities are also present bilaterally in the findings are suspicious for multi lobar pneumonia. Head CTA IMPRESSION: 1. No acute intracranial hemorrhage, evidence of acute territorial infarction, or other acute intracranial disease process. 2. 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 Antibiotic now changed to meropenem per logistics engineering manager. Further care per ICU team. Sister and POA, Mrs. Cele Zazueta updated over the phone by me and Dr. Nugent today. Elevated troponin Likely in setting of liver disease Patient without chest pain will cycle for completeness Echo ordered and pending Hypomagnesemia - replete and monitor Hypokalemia - replete and monitor Severe malnutrition Hypoalbuminemia Consult dietitian Chronic anemia Secondary to liver disease H&H 8.7 and 28.2 Known portal hypertension and esophageal varices Now patient in DIC, further care as above, per logistics engineering manager/hematology. dvt ppx: SCD/TEDS for now in setting of liver disease Dispo: ICU PCP: Dr. Black Code status: FULL CODE (CODE STATUS discussed with the patient yesterday, however patient did not say his preferences (questionable if patient could really understand the conversation); patient's sister and POA contacted, reports that patient likely would want to be DNR/DNI, she will get back to us after discussing further with family/ will also try to find record of his wishes). Prognosis remains guarded. Admission and Anticipated Discharge Date Admission Date: October 20, 2021 Subjective Patient was found unresponsive by a family member, presented to the hospital by EMS Patient admitted for hepatic encephalopathy Next day underwent diagnostic paracentesis, for concern for SBP (SBP ruled out) Overnight, however was code purple, hypoxic, intubated and transferred to ICU, per chart review, possible medication administration error occurred (? related) Found to be in DIC, hematology also consulted Currently patient is in ICU, extubated this AM (10/23) After extubation however hypoxic, required oxygen via nasal cannula, later required BiPAP Auditing Coder discussed goals of care again with family, patient's sister (POA), and patient was made DNR/DNI. Patient is currently sitting up in bed, in no acute distress, on BiPAP, with his eyes closed, unable to answer my questions. Review of Systems Review of Systems: Unobtainable due to cognitive status Physical Exam Physical Exam: Constitutional:Cachectic, chronically ill-appearing M in NAD, on BiPAP Head: Normocephalic, Atraumatic, b/l temporal wasting Respiratory:+ coarse breath sounds Cardiovascular: RRR, 1/6 colin cardiac apex, b/l nonpitting edema, b/l severe venous stasis changes Chest: normal inspection of chest Abdomen: +significant ascites noted, +BS, soft, (previously tender to palp. diffusely) Musculoskeletal:unable to assess strength Skin: b/l significant LE venous stasis changes Neurologic:Extubated, but drowsy, does not open his eyes/does not respond to voice Results & Data Results & Data ([facility]) Vital Signs (Past 12 Hours) Vital Signs Temp Pulse Resp BP Pulse Ox 10/23/21 08:15 36.4 C L 66 16 101/44 L 95 10/23/21 08:00 36.4 C L 57 L 27 H 103/51 L 93 10/23/21 07:35 55 L 11 L 88 L 10/23/21 07:30 36.5 C 57 L 21 82/50 L 90 10/23/21 07:00 36.5 C 55 L 20 97/55 L 87 L 10/23/21 06:40 36.6 C 50 L 20 92 10/23/21 06:30 36.6 C 54 L 20 103/57 L 92 10/23/21 06:20 36.7 C 46 L 20 92 10/23/21 06:10 36.7 C 48 L 20 92 10/23/21 06:00 36.8 C 46 L 20 90/53 L 91 10/23/21 05:30 36.9 C 49 L 20 92/51 L 93 10/23/21 05:00 37.1 C 53 L 20 89/53 L 97 10/23/21 04:50 37.1 C 61 20 96 10/23/21 04:40 37.2 C 75 21 94 10/23/21 04:30 37.2 C 51 L 20 94/54 L 97 10/23/21 04:20 37.2 C 49 L 20 98 10/23/21 04:10 37.2 C 48 L 20 96 10/23/21 04:00 37.2 C 51 L 20 88/50 L 96 10/23/21 03:50 37.1 C 51 L 20 97 10/23/21 03:40 37.1 C 52 L 20 96 10/23/21 03:30 37.0 C 51 L 20 88/48 L 96 10/23/21 03:20 36.8 C 51 L 20 97 10/23/21 03:10 36.7 C 51 L 20 97 10/23/21 03:00 36.6 C 51 L 20 88/51 L 98 10/23/21 02:50 36.5 C 51 L 20 98 10/23/21 02:40 36.4 C L 51 L 20 98 10/23/21 02:30 36.3 C L 51 L 20 85/50 L 97 10/23/21 02:20 36.3 C L 52 L 20 98 10/23/21 02:10 36.2 C L 53 L 20 97 10/23/21 02:00 36.2 C L 52 L 20 88/52 L 96 10/23/21 01:50 36.2 C L 57 L 20 96 10/23/21 01:45 36.2 C L 60 20 95 10/23/21 01:30 36.2 C L 59 L 20 106/64 97 10/23/21 01:17 36.2 C L 54 L 20 108/48 L 96 10/23/21 01:15 36.2 C L 60 20 96 10/23/21 01:00 36.3 C L 58 L 20 113/63 96 10/23/21 00:47 36.3 C L 53 L 20 105/48 L 95 10/23/21 00:45 36.3 C L 54 L 20 94 10/23/21 00:32 36.3 C L 53 L 20 107/48 L 94 10/23/21 00:30 36.3 C L 54 L 20 97/55 L 95 10/23/21 00:20 36.4 C L 66 20 91 10/23/21 00:14 36.4 C L 63 20 121/56 L 93 10/23/21 00:10 36.4 C L 62 20 96 10/23/21 00:04 36.4 C L 60 17 112/51 L 94 10/23/21 00:00 36.4 C L 65 20 100/60 95 10/22/21 23:50 36.4 C L 59 L 20 95 10/22/21 23:40 36.4 C L 71 21 94 10/22/21 23:30 36.4 C L 65 20 103/56 L 95 10/22/21 23:20 36.4 C L 65 20 95 10/22/21 23:10 36.4 C L 67 17 95 10/22/21 23:06 36.4 C L 66 17 113/51 L 96 10/22/21 23:00 36.5 C 69 20 91/53 L 95 10/22/21 22:50 36.5 C 68 20 94 10/22/21 22:40 36.5 C 70 17 96 10/22/21 22:36 36.5 C 71 20 115/52 L 94 10/22/21 22:30 36.5 C 70 20 101/54 L 94 10/22/21 22:21 36.5 C 71 22 110/55 L 94 10/22/21 22:20 36.5 C 72 21 93 10/22/21 22:12 36.6 C 69 21 128/60 93 10/22/21 22:10 36.5 C 64 18 89 L 10/22/21 22:03 36.6 C 76 20 116/80 91 10/22/21 22:00 36.6 C 73 20 102/53 L 95 10/22/21 21:50 36.7 C 108 H 29 H 96 10/22/21 21:40 36.7 C 73 19 93 10/22/21 21:30 36.7 C 89 20 112/54 L 93 10/22/21 21:20 36.7 C 74 20 92 10/22/21 21:10 36.7 C 73 18 93 10/22/21 21:00 36.7 C 70 20 117/58 L 93 10/22/21 20:56 68 10/22/21 20:50 36.7 C 70 18 92 Laboratory Results 10/23/21 10/23/21 10/23/21 Range/Units 07:02 05:22 05:14 WBC (4.8-10.8) K/uL RBC (4.7-6.1) M/uL Hgb (14.0-18.0) g/dL POC Hgb 8.8 L (14.0-18.0) g/dl Hct (42-52) % POC Hct 26 L (42-52) % MCV (80-100) fL MCH (25-34) pg MCHC (32-36) g/dL RDW Std Deviation (36.4-46.3) fL RDW Coeff of Ronnie (11.5-14.5) % Plt Count (130-400) K/uL Immature Gran % (Auto) % Neut % (Auto) % Lymph % (Auto) % Randolph % (Auto) % Eos % (Auto) % Baso % (Auto) % Neut # (Auto) (1.4-6.5) K/uL Lymph # (Auto) (1.2-3.4) K/uL Randolph # (Auto) (0.11-0.59) K/uL Eos # (Auto) (0-0.5) K/uL Baso # (Auto) (0-0.2) K/uL Immature Gran # (Auto) (0.00-0.02) K/uL Platelet Estimate (Normal) Polychromasia Hypochromasia Anisocytosis Microcytosis Target Cells Ovalocytes Acanthocytes (Spur) PT (9.0-12.0) Seconds INR (0.9-1.1) Fibrinogen (184-400) mg/dl Fibrin Degrad Products >40 H (<10) mcg/ml D-Dimer (0-500) ug/L FEU Specimen Type Sample Site Art Line Patient Temperature POC pH 7.40 (7.35-7.45) POC pCO2 38 (35-46) mmHg POC pO2 73 L (80-95) mmHg POC HCO3 24 (19-24) lei/L POC Total CO2 25 (24-31) mmol/L POC Base Excess -1.0 (-9-1.8) lei/L O2 Sat Pulse Oximetry ABG pH (Temp Correct) 7.399 (7.35-7.45) ABG pCO2 (Temp Corrct 38 (35-46) mmHg POC ABG pO2 at Pt Temp 73 POC ABG O2 Sat 94.0 (90-95) % Sravan Test NA O2 Delivery Device Ventilator POC O2 Rate 20 Minute Ventilation 8.1 Vent Mode POC FiO2 40 % Tidal Volume 400 End Tidal CO2 PEEP 5 POC Sodium 139 (135-144) mmol/L Sodium (136-145) mmol/L POC Potassium 3.7 (3.3-5.0) mmol/L Potassium (3.5-5.1) mmol/L Chloride (98-107) mmol/L Carbon Dioxide (21-32) mmol/L Anion Gap (3-11) BUN (6-23) mg/dl Creatinine (0.6-1.4) mg/dl Est Cr Clr Drug Dosing ml/min Est GFR ( Amer) ml/min Est GFR (Non-Af Amer) ml/min BUN/Creatinine Ratio (10-20) Glucose (70-99(Fasting)) mg/dl Lactate (0.4-2.0) mmol/L Calcium (8.5-10.1) mg/dl Phosphorus (2.5-4.9) mg/dl Magnesium (1.7-2.4) mg/dl Total Bilirubin (0.2-1.0) mg/dl Direct Bilirubin (0-0.2) mg/dl AST (13-39) U/L ALT (7-52) U/L Alkaline Phosphatase (34-104) U/L Ammonia (18-72) umol/L Lactate Dehydrogenase (86-244) U/L Total Protein (6.0-8.3) gm/dl Albumin (3.4-5.0) gm/dl Globulin (2.5-4.0) gm/dl Albumin/Globulin Ratio (0.9-2) Procalcitonin (0-0.5) ng/ml Cortisol AM Sample 23.42 H (6.2-22.6) mcg/dl Random Vancomycin (10-20) mcg/ml Blood Type Antibody Screen Crossmatch 10/23/21 10/23/21 10/23/21 Range/Units 03:25 03:25 03:25 WBC 7.52 (4.8-10.8) K/uL RBC 3.76 L (4.7-6.1) M/uL Hgb 8.5 L (14.0-18.0) g/dL POC Hgb (14.0-18.0) g/dl Hct 26.8 L (42-52) % POC Hct (42-52) % MCV 71.3 L D (80-100) fL MCH 22.6 L (25-34) pg MCHC 31.7 L (32-36) g/dL RDW Std Deviation 68.4 H (36.4-46.3) fL RDW Coeff of Ronnie 26.4 H (11.5-14.5) % Plt Count 31 L (130-400) K/uL Immature Gran % (Auto) 0.5 % Neut % (Auto) 89.3 % Lymph % (Auto) 4.9 % Randolph % (Auto) 5.3 % Eos % (Auto) 0.0 % Baso % (Auto) 0.0 % Neut # (Auto) 6.71 H (1.4-6.5) K/uL Lymph # (Auto) 0.37 L (1.2-3.4) K/uL Randolph # (Auto) 0.40 (0.11-0.59) K/uL Eos # (Auto) 0.00 (0-0.5) K/uL Baso # (Auto) 0.00 (0-0.2) K/uL Immature Gran # (Auto) 0.04 H (0.00-0.02) K/uL Platelet Estimate SIGNIFIC DECREASED (Normal) Polychromasia Hypochromasia Present Anisocytosis Present Microcytosis Target Cells 1+ Ovalocytes Acanthocytes (Spur) PT (9.0-12.0) Seconds INR (0.9-1.1) Fibrinogen (184-400) mg/dl Fibrin Degrad Products (<10) mcg/ml D-Dimer (0-500) ug/L FEU Specimen Type Sample Site Patient Temperature POC pH (7.35-7.45) POC pCO2 (35-46) mmHg POC pO2 (80-95) mmHg POC HCO3 (19-24) lei/L POC Total CO2 (24-31) mmol/L POC Base Excess (-9-1.8) lei/L O2 Sat Pulse Oximetry ABG pH (Temp Correct) (7.35-7.45) ABG pCO2 (Temp Corrct (35-46) mmHg POC ABG pO2 at Pt Temp POC ABG O2 Sat (90-95) % Sravan Test O2 Delivery Device POC O2 Rate Minute Ventilation Vent Mode POC FiO2 % Tidal Volume End Tidal CO2 PEEP POC Sodium (135-144) mmol/L Sodium (136-145) mmol/L POC Potassium (3.3-5.0) mmol/L Potassium (3.5-5.1) mmol/L Chloride (98-107) mmol/L Carbon Dioxide (21-32) mmol/L Anion Gap (3-11) BUN (6-23) mg/dl Creatinine (0.6-1.4) mg/dl Est Cr Clr Drug Dosing ml/min Est GFR ( Amer) ml/min Est GFR (Non-Af Amer) ml/min BUN/Creatinine Ratio (10-20) Glucose (70-99(Fasting)) mg/dl Lactate (0.4-2.0) mmol/L Calcium (8.5-10.1) mg/dl Phosphorus (2.5-4.9) mg/dl Magnesium (1.7-2.4) mg/dl Total Bilirubin (0.2-1.0) mg/dl Direct Bilirubin (0-0.2) mg/dl AST (13-39) U/L ALT (7-52) U/L Alkaline Phosphatase (34-104) U/L Ammonia 79.0 H (18-72) umol/L Lactate Dehydrogenase (86-244) U/L Total Protein (6.0-8.3) gm/dl Albumin (3.4-5.0) gm/dl Globulin (2.5-4.0) gm/dl Albumin/Globulin Ratio (0.9-2) Procalcitonin 5.34 H (0-0.5) ng/ml Cortisol AM Sample (6.2-22.6) mcg/dl Random Vancomycin (10-20) mcg/ml Blood Type Antibody Screen Crossmatch 10/23/21 10/23/21 10/23/21 Range/Units 03:25 03:25 03:25 WBC (4.8-10.8) K/uL RBC (4.7-6.1) M/uL Hgb (14.0-18.0) g/dL POC Hgb (14.0-18.0) g/dl Hct (42-52) % POC Hct (42-52) % MCV (80-100) fL MCH (25-34) pg MCHC (32-36) g/dL RDW Std Deviation (36.4-46.3) fL RDW Coeff of Ronnie (11.5-14.5) % Plt Count (130-400) K/uL Immature Gran % (Auto) % Neut % (Auto) % Lymph % (Auto) % Randolph % (Auto) % Eos % (Auto) % Baso % (Auto) % Neut # (Auto) (1.4-6.5) K/uL Lymph # (Auto) (1.2-3.4) K/uL Randolph # (Auto) (0.11-0.59) K/uL Eos # (Auto) (0-0.5) K/uL Baso # (Auto) (0-0.2) K/uL Immature Gran # (Auto) (0.00-0.02) K/uL Platelet Estimate (Normal) Polychromasia Hypochromasia Anisocytosis Microcytosis Target Cells Ovalocytes Acanthocytes (Spur) PT 17.0 H (9.0-12.0) Seconds INR 1.6 H (0.9-1.1) Fibrinogen 166 L (184-400) mg/dl Fibrin Degrad Products (<10) mcg/ml D-Dimer > 41108 H* (0-500) ug/L FEU Specimen Type Sample Site Patient Temperature POC pH (7.35-7.45) POC pCO2 (35-46) mmHg POC pO2 (80-95) mmHg POC HCO3 (19-24) lei/L POC Total CO2 (24-31) mmol/L POC Base Excess (-9-1.8) lei/L O2 Sat Pulse Oximetry ABG pH (Temp Correct) (7.35-7.45) ABG pCO2 (Temp Corrct (35-46) mmHg POC ABG pO2 at Pt Temp POC ABG O2 Sat (90-95) % Sravan Test O2 Delivery Device POC O2 Rate Minute Ventilation Vent Mode POC FiO2 % Tidal Volume End Tidal CO2 PEEP POC Sodium (135-144) mmol/L Sodium (136-145) mmol/L POC Potassium (3.3-5.0) mmol/L Potassium (3.5-5.1) mmol/L Chloride (98-107) mmol/L Carbon Dioxide (21-32) mmol/L Anion Gap (3-11) BUN (6-23) mg/dl Creatinine (0.6-1.4) mg/dl Est Cr Clr Drug Dosing ml/min Est GFR ( Amer) ml/min Est GFR (Non-Af Amer) ml/min BUN/Creatinine Ratio (10-20) Glucose (70-99(Fasting)) mg/dl Lactate (0.4-2.0) mmol/L Calcium (8.5-10.1) mg/dl Phosphorus (2.5-4.9) mg/dl Magnesium (1.7-2.4) mg/dl Total Bilirubin (0.2-1.0) mg/dl Direct Bilirubin (0-0.2) mg/dl AST (13-39) U/L ALT (7-52) U/L Alkaline Phosphatase (34-104) U/L Ammonia (18-72) umol/L Lactate Dehydrogenase 241 (86-244) U/L Total Protein (6.0-8.3) gm/dl Albumin (3.4-5.0) gm/dl Globulin (2.5-4.0) gm/dl Albumin/Globulin Ratio (0.9-2) Procalcitonin (0-0.5) ng/ml Cortisol AM Sample (6.2-22.6) mcg/dl Random Vancomycin 16.4 (10-20) mcg/ml Blood Type Antibody Screen Crossmatch 05/28/22 05/28/22 05/28/22 Range/Units 03:25 03:25 03:25 WBC (4.8-10.8) K/uL RBC (4.7-6.1) M/uL Hgb (14.0-18.0) g/dL POC Hgb (14.0-18.0) g/dl Hct (42-52) % POC Hct (42-52) % MCV (80-100) fL MCH (25-34) pg MCHC (32-36) g/dL RDW Std Deviation (36.4-46.3) fL RDW Coeff of Ronnie (11.5-14.5) % Plt Count (130-400) K/uL Immature Gran % (Auto) % Neut % (Auto) % Lymph % (Auto) % Randolph % (Auto) % Eos % (Auto) % Baso % (Auto) % Neut # (Auto) (1.4-6.5) K/uL Lymph # (Auto) (1.2-3.4) K/uL Randolph # (Auto) (0.11-0.59) K/uL Eos # (Auto) (0-0.5) K/uL Baso # (Auto) (0-0.2) K/uL Immature Gran # (Auto) (0.00-0.02) K/uL Platelet Estimate (Normal) Polychromasia Hypochromasia Anisocytosis Microcytosis Target Cells Ovalocytes Acanthocytes (Spur) PT (9.0-12.0) Seconds INR (0.9-1.1) Fibrinogen (184-400) mg/dl Fibrin Degrad Products (<10) mcg/ml D-Dimer (0-500) ug/L FEU Specimen Type Sample Site Patient Temperature POC pH (7.35-7.45) POC pCO2 (35-46) mmHg POC pO2 (80-95) mmHg POC HCO3 (19-24) lei/L POC Total CO2 (24-31) mmol/L POC Base Excess (-9-1.8) lei/L O2 Sat Pulse Oximetry ABG pH (Temp Correct) (7.35-7.45) ABG pCO2 (Temp Corrct (35-46) mmHg POC ABG pO2 at Pt Temp POC ABG O2 Sat (90-95) % Sravan Test O2 Delivery Device POC O2 Rate Minute Ventilation Vent Mode POC FiO2 % Tidal Volume End Tidal CO2 PEEP POC Sodium (135-144) mmol/L Sodium 140 139 (136-145) mmol/L POC Potassium (3.3-5.0) mmol/L Potassium 3.7 3.7 (3.5-5.1) mmol/L Chloride 108 H 108 H (98-107) mmol/L Carbon Dioxide 23 23 (21-32) mmol/L Anion Gap 9 8 (3-11) BUN 36 H 36 H (6-23) mg/dl Creatinine 1.21 1.25 (0.6-1.4) mg/dl Est Cr Clr Drug Dosing 55.0 53.3 ml/min Est GFR ( Amer) 75.5 72.6 ml/min Est GFR (Non-Af Amer) 65.1 62.6 ml/min BUN/Creatinine Ratio 29.8 H 28.8 H (10-20) Glucose 165 H 166 H (70-99(Fasting)) mg/dl Lactate 1.6 (0.4-2.0) mmol/L Calcium 8.0 L 8.0 L (8.5-10.1) mg/dl Phosphorus 4.2 (2.5-4.9) mg/dl Magnesium 1.9 (1.7-2.4) mg/dl Total Bilirubin 3.9 H (0.2-1.0) mg/dl Direct Bilirubin (0-0.2) mg/dl AST 23 (13-39) U/L ALT 19 (7-52) U/L Alkaline Phosphatase 55 (34-104) U/L Ammonia (18-72) umol/L Lactate Dehydrogenase (86-244) U/L Total Protein 4.5 L (6.0-8.3) gm/dl Albumin 2.5 L (3.4-5.0) gm/dl Globulin 2.0 L (2.5-4.0) gm/dl Albumin/Globulin Ratio 1.3 (0.9-2) Procalcitonin (0-0.5) ng/ml Cortisol AM Sample (6.2-22.6) mcg/dl Random Vancomycin (10-20) mcg/ml Blood Type Antibody Screen Crossmatch 10/23/21 10/22/21 10/22/21 Range/Units 03:25 19:30 18:30 WBC 15.87 H (4.8-10.8) K/uL RBC 3.32 L (4.7-6.1) M/uL Hgb 6.8 L* (14.0-18.0) g/dL POC Hgb (14.0-18.0) g/dl Hct 22.1 L (42-52) % POC Hct (42-52) % MCV 66.6 L (80-100) fL MCH 20.5 L (25-34) pg MCHC 30.8 L (32-36) g/dL RDW Std Deviation 61.8 H (36.4-46.3) fL RDW Coeff of Ronnie 26.3 H (11.5-14.5) % Plt Count 59 L (130-400) K/uL Immature Gran % (Auto) 0.9 % Neut % (Auto) 89.4 % Lymph % (Auto) 3.3 % Randolph % (Auto) 6.3 % Eos % (Auto) 0.0 % Baso % (Auto) 0.1 % Neut # (Auto) 14.19 H (1.4-6.5) K/uL Lymph # (Auto) 0.53 L (1.2-3.4) K/uL Randolph # (Auto) 1.00 H (0.11-0.59) K/uL Eos # (Auto) 0.00 (0-0.5) K/uL Baso # (Auto) 0.01 (0-0.2) K/uL Immature Gran # (Auto) 0.14 H (0.00-0.02) K/uL Platelet Estimate Decreased L (Normal) Polychromasia 1+ Hypochromasia Present Anisocytosis Present Microcytosis Present Target Cells Ovalocytes 1+ Acanthocytes (Spur) 1+ PT 17.0 H (9.0-12.0) Seconds INR 1.6 H (0.9-1.1) Fibrinogen 162 L (184-400) mg/dl Fibrin Degrad Products (<10) mcg/ml D-Dimer (0-500) ug/L FEU Specimen Type Sample Site Patient Temperature POC pH (7.35-7.45) POC pCO2 (35-46) mmHg POC pO2 (80-95) mmHg POC HCO3 (19-24) lei/L POC Total CO2 (24-31) mmol/L POC Base Excess (-9-1.8) lei/L O2 Sat Pulse Oximetry ABG pH (Temp Correct) (7.35-7.45) ABG pCO2 (Temp Corrct (35-46) mmHg POC ABG pO2 at Pt Temp POC ABG O2 Sat (90-95) % Sravan Test O2 Delivery Device POC O2 Rate Minute Ventilation Vent Mode POC FiO2 % Tidal Volume End Tidal CO2 PEEP POC Sodium (135-144) mmol/L Sodium (136-145) mmol/L POC Potassium (3.3-5.0) mmol/L Potassium (3.5-5.1) mmol/L Chloride (98-107) mmol/L Carbon Dioxide (21-32) mmol/L Anion Gap (3-11) BUN (6-23) mg/dl Creatinine (0.6-1.4) mg/dl Est Cr Clr Drug Dosing ml/min Est GFR ( Amer) ml/min Est GFR (Non-Af Amer) ml/min BUN/Creatinine Ratio (10-20) Glucose (70-99(Fasting)) mg/dl Lactate 2.7 H* (0.4-2.0) mmol/L Calcium (8.5-10.1) mg/dl Phosphorus (2.5-4.9) mg/dl Magnesium (1.7-2.4) mg/dl Total Bilirubin (0.2-1.0) mg/dl Direct Bilirubin (0-0.2) mg/dl AST (13-39) U/L ALT (7-52) U/L Alkaline Phosphatase (34-104) U/L Ammonia (18-72) umol/L Lactate Dehydrogenase (86-244) U/L Total Protein (6.0-8.3) gm/dl Albumin (3.4-5.0) gm/dl Globulin (2.5-4.0) gm/dl Albumin/Globulin Ratio (0.9-2) Procalcitonin (0-0.5) ng/ml Cortisol AM Sample (6.2-22.6) mcg/dl Random Vancomycin (10-20) mcg/ml Blood Type Antibody Screen Crossmatch 10/22/21 10/22/21 10/22/21 Range/Units 15:06 15:06 15:06 WBC (4.8-10.8) K/uL RBC (4.7-6.1) M/uL Hgb (14.0-18.0) g/dL POC Hgb (14.0-18.0) g/dl Hct (42-52) % POC Hct (42-52) % MCV (80-100) fL MCH (25-34) pg MCHC (32-36) g/dL RDW Std Deviation (36.4-46.3) fL RDW Coeff of Ronnie (11.5-14.5) % Plt Count (130-400) K/uL Immature Gran % (Auto) % Neut % (Auto) % Lymph % (Auto) % Randolph % (Auto) % Eos % (Auto) % Baso % (Auto) % Neut # (Auto) (1.4-6.5) K/uL Lymph # (Auto) (1.2-3.4) K/uL Randolph # (Auto) (0.11-0.59) K/uL Eos # (Auto) (0-0.5) K/uL Baso # (Auto) (0-0.2) K/uL Immature Gran # (Auto) (0.00-0.02) K/uL Platelet Estimate (Normal) Polychromasia Hypochromasia Anisocytosis Microcytosis Target Cells Ovalocytes Acanthocytes (Spur) PT 15.1 H (9.0-12.0) Seconds INR 1.4 H (0.9-1.1) Fibrinogen 186 D (184-400) mg/dl Fibrin Degrad Products >40 H (<10) mcg/ml D-Dimer > 34381 H* (0-500) ug/L FEU Specimen Type Sample Site Patient Temperature POC pH (7.35-7.45) POC pCO2 (35-46) mmHg POC pO2 (80-95) mmHg POC HCO3 (19-24) lei/L POC Total CO2 (24-31) mmol/L POC Base Excess (-9-1.8) lei/L O2 Sat Pulse Oximetry ABG pH (Temp Correct) (7.35-7.45) ABG pCO2 (Temp Corrct (35-46) mmHg POC ABG pO2 at Pt Temp POC ABG O2 Sat (90-95) % Sravan Test O2 Delivery Device POC O2 Rate Minute Ventilation Vent Mode POC FiO2 % Tidal Volume End Tidal CO2 PEEP POC Sodium (135-144) mmol/L Sodium (136-145) mmol/L POC Potassium (3.3-5.0) mmol/L Potassium (3.5-5.1) mmol/L Chloride (98-107) mmol/L Carbon Dioxide (21-32) mmol/L Anion Gap (3-11) BUN (6-23) mg/dl Creatinine (0.6-1.4) mg/dl Est Cr Clr Drug Dosing ml/min Est GFR ( Amer) ml/min Est GFR (Non-Af Amer) ml/min BUN/Creatinine Ratio (10-20) Glucose (70-99(Fasting)) mg/dl Lactate (0.4-2.0) mmol/L Calcium (8.5-10.1) mg/dl Phosphorus (2.5-4.9) mg/dl Magnesium (1.7-2.4) mg/dl Total Bilirubin (0.2-1.0) mg/dl Direct Bilirubin (0-0.2) mg/dl AST (13-39) U/L ALT (7-52) U/L Alkaline Phosphatase (34-104) U/L Ammonia (18-72) umol/L Lactate Dehydrogenase 264 H (86-244) U/L Total Protein (6.0-8.3) gm/dl Albumin (3.4-5.0) gm/dl Globulin (2.5-4.0) gm/dl Albumin/Globulin Ratio (0.9-2) Procalcitonin (0-0.5) ng/ml Cortisol AM Sample (6.2-22.6) mcg/dl Random Vancomycin (10-20) mcg/ml Blood Type Antibody Screen Crossmatch 10/22/21 10/22/21 10/22/21 Range/Units 15:02 15:02 10:44 WBC (4.8-10.8) K/uL RBC (4.7-6.1) M/uL Hgb (14.0-18.0) g/dL POC Hgb (14.0-18.0) g/dl Hct (42-52) % POC Hct (42-52) % MCV (80-100) fL MCH (25-34) pg MCHC (32-36) g/dL RDW Std Deviation (36.4-46.3) fL RDW Coeff of Ronnie (11.5-14.5) % Plt Count (130-400) K/uL Immature Gran % (Auto) % Neut % (Auto) % Lymph % (Auto) % Randolph % (Auto) % Eos % (Auto) % Baso % (Auto) % Neut # (Auto) (1.4-6.5) K/uL Lymph # (Auto) (1.2-3.4) K/uL Randolph # (Auto) (0.11-0.59) K/uL Eos # (Auto) (0-0.5) K/uL Baso # (Auto) (0-0.2) K/uL Immature Gran # (Auto) (0.00-0.02) K/uL Platelet Estimate (Normal) Polychromasia Hypochromasia Anisocytosis Microcytosis Target Cells Ovalocytes Acanthocytes (Spur) PT (9.0-12.0) Seconds INR (0.9-1.1) Fibrinogen (184-400) mg/dl Fibrin Degrad Products (<10) mcg/ml D-Dimer (0-500) ug/L FEU Specimen Type Sample Site Patient Temperature POC pH (7.35-7.45) POC pCO2 (35-46) mmHg POC pO2 (80-95) mmHg POC HCO3 (19-24) lei/L POC Total CO2 (24-31) mmol/L POC Base Excess (-9-1.8) lei/L O2 Sat Pulse Oximetry ABG pH (Temp Correct) (7.35-7.45) ABG pCO2 (Temp Corrct (35-46) mmHg POC ABG pO2 at Pt Temp POC ABG O2 Sat (90-95) % Sravan Test O2 Delivery Device POC O2 Rate Minute Ventilation Vent Mode POC FiO2 % Tidal Volume End Tidal CO2 PEEP POC Sodium (135-144) mmol/L Sodium 141 (136-145) mmol/L POC Potassium (3.3-5.0) mmol/L Potassium 3.2 L (3.5-5.1) mmol/L Chloride 107 (98-107) mmol/L Carbon Dioxide 22 (21-32) mmol/L Anion Gap 12 H (3-11) BUN 35 H (6-23) mg/dl Creatinine 1.33 (0.6-1.4) mg/dl Est Cr Clr Drug Dosing 50.1 ml/min Est GFR ( Amer) 67.3 ml/min Est GFR (Non-Af Amer) 58.1 ml/min BUN/Creatinine Ratio 26.3 H (10-20) Glucose 153 H (70-99(Fasting)) mg/dl Lactate 4.6 H* (0.4-2.0) mmol/L Calcium 8.2 L (8.5-10.1) mg/dl Phosphorus (2.5-4.9) mg/dl Magnesium (1.7-2.4) mg/dl Total Bilirubin 3.5 H (0.2-1.0) mg/dl Direct Bilirubin (0-0.2) mg/dl AST 28 (13-39) U/L ALT 20 (7-52) U/L Alkaline Phosphatase 62 (34-104) U/L Ammonia (18-72) umol/L Lactate Dehydrogenase (86-244) U/L Total Protein 5.0 L (6.0-8.3) gm/dl Albumin 2.8 L (3.4-5.0) gm/dl Globulin 2.2 L (2.5-4.0) gm/dl Albumin/Globulin Ratio 1.3 (0.9-2) Procalcitonin (0-0.5) ng/ml Cortisol AM Sample (6.2-22.6) mcg/dl Random Vancomycin 10.8 (10-20) mcg/ml Blood Type Antibody Screen Crossmatch 10/22/21 10/22/21 10/22/21 Range/Units 10:19 08:33 08:33 WBC (4.8-10.8) K/uL RBC (4.7-6.1) M/uL Hgb (14.0-18.0) g/dL POC Hgb 7.8 L (14.0-18.0) g/dl Hct (42-52) % POC Hct 23 L (42-52) % MCV (80-100) fL MCH (25-34) pg MCHC (32-36) g/dL RDW Std Deviation (36.4-46.3) fL RDW Coeff of Ronnie (11.5-14.5) % Plt Count (130-400) K/uL Immature Gran % (Auto) % Neut % (Auto) % Lymph % (Auto) % Randolph % (Auto) % Eos % (Auto) % Baso % (Auto) % Neut # (Auto) (1.4-6.5) K/uL Lymph # (Auto) (1.2-3.4) K/uL Randolph # (Auto) (0.11-0.59) K/uL Eos # (Auto) (0-0.5) K/uL Baso # (Auto) (0-0.2) K/uL Immature Gran # (Auto) (0.00-0.02) K/uL Platelet Estimate (Normal) Polychromasia Hypochromasia Anisocytosis Microcytosis Target Cells Ovalocytes Acanthocytes (Spur) PT (9.0-12.0) Seconds INR (0.9-1.1) Fibrinogen (184-400) mg/dl Fibrin Degrad Products (<10) mcg/ml D-Dimer (0-500) ug/L FEU Specimen Type Sample Site Art Line Patient Temperature POC pH 7.36 (7.35-7.45) POC pCO2 35 (35-46) mmHg POC pO2 62 L (80-95) mmHg POC HCO3 20 (19-24) lei/L POC Total CO2 21 L (24-31) mmol/L POC Base Excess -6.0 (-9-1.8) lei/L O2 Sat Pulse Oximetry ABG pH (Temp Correct) 7.374 (7.35-7.45) ABG pCO2 (Temp Corrct 33 L (35-46) mmHg POC ABG pO2 at Pt Temp 58 POC ABG O2 Sat 91.0 (90-95) % Sravan Test NA O2 Delivery Device Ventilator POC O2 Rate 26 Minute Ventilation 10.4 Vent Mode POC FiO2 40 % Tidal Volume 400 End Tidal CO2 PEEP 5 POC Sodium 142 (135-144) mmol/L Sodium (136-145) mmol/L POC Potassium 3.0 L (3.3-5.0) mmol/L Potassium (3.5-5.1) mmol/L Chloride (98-107) mmol/L Carbon Dioxide (21-32) mmol/L Anion Gap (3-11) BUN (6-23) mg/dl Creatinine (0.6-1.4) mg/dl Est Cr Clr Drug Dosing ml/min Est GFR ( Amer) ml/min Est GFR (Non-Af Amer) ml/min BUN/Creatinine Ratio (10-20) Glucose (70-99(Fasting)) mg/dl Lactate 4.8 H* (0.4-2.0) mmol/L Calcium (8.5-10.1) mg/dl Phosphorus (2.5-4.9) mg/dl Magnesium (1.7-2.4) mg/dl Total Bilirubin 2.7 H (0.2-1.0) mg/dl Direct Bilirubin 1.0 H (0-0.2) mg/dl AST 33 (13-39) U/L ALT 21 (7-52) U/L Alkaline Phosphatase 58 (34-104) U/L Ammonia (18-72) umol/L Lactate Dehydrogenase (86-244) U/L Total Protein 4.1 L (6.0-8.3) gm/dl Albumin 2.2 L (3.4-5.0) gm/dl Globulin (2.5-4.0) gm/dl Albumin/Globulin Ratio (0.9-2) Procalcitonin (0-0.5) ng/ml Cortisol AM Sample (6.2-22.6) mcg/dl Random Vancomycin (10-20) mcg/ml Blood Type Antibody Screen Crossmatch 10/22/21 10/22/21 10/22/21 Range/Units 08:33 08:33 08:33 WBC (4.8-10.8) K/uL RBC (4.7-6.1) M/uL Hgb (14.0-18.0) g/dL POC Hgb (14.0-18.0) g/dl Hct (42-52) % POC Hct (42-52) % MCV (80-100) fL MCH (25-34) pg MCHC (32-36) g/dL RDW Std Deviation (36.4-46.3) fL RDW Coeff of Ronnie (11.5-14.5) % Plt Count (130-400) K/uL Immature Gran % (Auto) % Neut % (Auto) % Lymph % (Auto) % Randolph % (Auto) % Eos % (Auto) % Baso % (Auto) % Neut # (Auto) (1.4-6.5) K/uL Lymph # (Auto) (1.2-3.4) K/uL Randolph # (Auto) (0.11-0.59) K/uL Eos # (Auto) (0-0.5) K/uL Baso # (Auto) (0-0.2) K/uL Immature Gran # (Auto) (0.00-0.02) K/uL Platelet Estimate (Normal) Polychromasia Hypochromasia Anisocytosis Microcytosis Target Cells Ovalocytes Acanthocytes (Spur) PT 26.0 H (9.0-12.0) Seconds INR 2.6 H (0.9-1.1) Fibrinogen < 50 L* (184-400) mg/dl Fibrin Degrad Products >40 H (<10) mcg/ml D-Dimer > 01254 H* (0-500) ug/L FEU Specimen Type Sample Site Patient Temperature POC pH (7.35-7.45) POC pCO2 (35-46) mmHg POC pO2 (80-95) mmHg POC HCO3 (19-24) lei/L POC Total CO2 (24-31) mmol/L POC Base Excess (-9-1.8) lei/L O2 Sat Pulse Oximetry ABG pH (Temp Correct) (7.35-7.45) ABG pCO2 (Temp Corrct (35-46) mmHg POC ABG pO2 at Pt Temp POC ABG O2 Sat (90-95) % Sravan Test O2 Delivery Device POC O2 Rate Minute Ventilation Vent Mode POC FiO2 % Tidal Volume End Tidal CO2 PEEP POC Sodium (135-144) mmol/L Sodium (136-145) mmol/L POC Potassium (3.3-5.0) mmol/L Potassium (3.5-5.1) mmol/L Chloride (98-107) mmol/L Carbon Dioxide (21-32) mmol/L Anion Gap (3-11) BUN (6-23) mg/dl Creatinine (0.6-1.4) mg/dl Est Cr Clr Drug Dosing ml/min Est GFR ( Amer) ml/min Est GFR (Non-Af Amer) ml/min BUN/Creatinine Ratio (10-20) Glucose (70-99(Fasting)) mg/dl Lactate (0.4-2.0) mmol/L Calcium (8.5-10.1) mg/dl Phosphorus (2.5-4.9) mg/dl Magnesium (1.7-2.4) mg/dl Total Bilirubin (0.2-1.0) mg/dl Direct Bilirubin (0-0.2) mg/dl AST (13-39) U/L ALT (7-52) U/L Alkaline Phosphatase (34-104) U/L Ammonia (18-72) umol/L Lactate Dehydrogenase 302 H (86-244) U/L Total Protein (6.0-8.3) gm/dl Albumin (3.4-5.0) gm/dl Globulin (2.5-4.0) gm/dl Albumin/Globulin Ratio (0.9-2) Procalcitonin (0-0.5) ng/ml Cortisol AM Sample (6.2-22.6) mcg/dl Random Vancomycin (10-20) mcg/ml Blood Type Antibody Screen Crossmatch 10/22/21 10/22/21 10/20/21 Range/Units 04:16 02:30 16:35 WBC (4.8-10.8) K/uL RBC (4.7-6.1) M/uL Hgb (14.0-18.0) g/dL POC Hgb 8.5 L 8.8 L (14.0-18.0) g/dl Hct (42-52) % POC Hct 25 L 26 L (42-52) % MCV (80-100) fL MCH (25-34) pg MCHC (32-36) g/dL RDW Std Deviation (36.4-46.3) fL RDW Coeff of Ronnie (11.5-14.5) % Plt Count (130-400) K/uL Immature Gran % (Auto) % Neut % (Auto) % Lymph % (Auto) % Randolph % (Auto) % Eos % (Auto) % Baso % (Auto) % Neut # (Auto) (1.4-6.5) K/uL Lymph # (Auto) (1.2-3.4) K/uL Randolph # (Auto) (0.11-0.59) K/uL Eos # (Auto) (0-0.5) K/uL Baso # (Auto) (0-0.2) K/uL Immature Gran # (Auto) (0.00-0.02) K/uL Platelet Estimate (Normal) Polychromasia Hypochromasia Anisocytosis Microcytosis Target Cells Ovalocytes Acanthocytes (Spur) PT (9.0-12.0) Seconds INR (0.9-1.1) Fibrinogen (184-400) mg/dl Fibrin Degrad Products (<10) mcg/ml D-Dimer (0-500) ug/L FEU Specimen Type Arterial Arterial Sample Site Art Line R Brachial Patient Temperature 33.6 34.0 POC pH 7.34 L 7.31 L (7.35-7.45) POC pCO2 39 43 (35-46) mmHg POC pO2 59 L 91 (80-95) mmHg POC HCO3 21 22 (19-24) lei/L POC Total CO2 22 L 23 L (24-31) mmol/L POC Base Excess -5.0 -4.0 (-9-1.8) lei/L O2 Sat Pulse Oximetry 98 ABG pH (Temp Correct) 7.383 7.355 (7.35-7.45) ABG pCO2 (Temp Corrct 33 L 38 (35-46) mmHg POC ABG pO2 at Pt Temp 46 75 POC ABG O2 Sat 88.0 L 96.0 H (90-95) % Sravan Test Not Performed Acceptable O2 Delivery Device Ventilator POC O2 Rate 26 Minute Ventilation Vent Mode AC POC FiO2 % Tidal Volume 400 End Tidal CO2 19 21 PEEP 8 POC Sodium 142 143 (135-144) mmol/L Sodium (136-145) mmol/L POC Potassium 2.9 L 2.8 L (3.3-5.0) mmol/L Potassium (3.5-5.1) mmol/L Chloride (98-107) mmol/L Carbon Dioxide (21-32) mmol/L Anion Gap (3-11) BUN (6-23) mg/dl Creatinine (0.6-1.4) mg/dl Est Cr Clr Drug Dosing ml/min Est GFR ( Amer) ml/min Est GFR (Non-Af Amer) ml/min BUN/Creatinine Ratio (10-20) Glucose (70-99(Fasting)) mg/dl Lactate (0.4-2.0) mmol/L Calcium (8.5-10.1) mg/dl Phosphorus (2.5-4.9) mg/dl Magnesium (1.7-2.4) mg/dl Total Bilirubin (0.2-1.0) mg/dl Direct Bilirubin (0-0.2) mg/dl AST (13-39) U/L ALT (7-52) U/L Alkaline Phosphatase (34-104) U/L Ammonia (18-72) umol/L Lactate Dehydrogenase (86-244) U/L Total Protein (6.0-8.3) gm/dl Albumin (3.4-5.0) gm/dl Globulin (2.5-4.0) gm/dl Albumin/Globulin Ratio (0.9-2) Procalcitonin (0-0.5) ng/ml Cortisol AM Sample (6.2-22.6) mcg/dl Random Vancomycin (10-20) mcg/ml Blood Type O Positive Antibody Screen NEGATIVE Crossmatch See Detail Medications Administered Current Inpatient Medications Thiamine HCl 100 mg/ Syringe 10 mls @ [facility] Stop: 11/20/21 08:59 Last Admin: 10/22/21 10:54 Dose: 2 mls/min Documented by: Folic Acid 1 mg/ Syringe 10 mls @ 5 mls/min IV QAM [facility] Stop: 11/20/21 08:59 Last Admin: 10/22/21 10:54 Dose: 5 mls/min Documented by: Norepinephrine Bitartrate (Levophed/D5w) 4 mg in 250 mls @ 11.175 mls/hr IV .[id number] [facility]; Protocol Stop: 11/21/21 03:14 Last Titration: 10/23/21 08:47 Dose: 0.1 mcg/kg/min, 22.4 mls/hr Documented by: Vasopressin 20 units/ Sodium (Chloride) 101 mls @ 12.12 mls/hr IV .[id number] [facility] Stop: 11/21/21 03:29 Last Infusion: 10/23/21 06:56 Dose: 0.04 unit/min, 12.1 mls/hr Documented by: Octreotide Acetate 500 mcg/ (Dextrose) 100.5 mls @ 10.05 mls/hr IV .Q10H [facility] Stop: 06/26/22 21:14 Last Admin: 10/23/21 06:30 Dose: 50 mcg/hr, 10.1 mls/hr Documented by: Pantoprazole Sodium 40 mg/ (Syringe) 10 mls @ 5 mls/min IV BID [facility] Stop: 11/21/21 21:14 Last Admin: 10/22/21 22:03 Dose: 5 mls/min Documented by: Meropenem 500 mg/ Syringe 10 mls @ 2 mls/min IV Q6H [facility]; Protocol Stop: 11/02/21 08:59 Vancomycin HCl 1,000 mg/ (Sodium Chloride) 270 mls @ 200 mls/hr IV Q18H [facility] Stop: 10/30/21 07:59 Sodium Chloride (Nss) 250 mls @ 15 mls/hr IV .[id number] PRN PRN Reason: For Transfusion Stop: 10/23/21 18:03 Methylprednisolone 80 mg/ (Syringe) 1.28 mls @ 1.5 mls/min IV TID [facility] Stop: 11/22/21 08:59 Magnesium Sulfate/Dextrose (Magnesium Sulfate / D5w) 1 gm in 100 mls @ 50 mls/hr IV Q2H [facility] Stop: 10/23/21 12:44 Potassium Chloride (K Sergo / Wtr) 20 meq in 100 mls @ 50 mls/hr IV Q2H [facility] Stop: 10/23/21 10:44 Lactulose (Lactulose 200gm/700ml Wtr Enema) 200 gm IN Q8H [facility] Stop: 11/20/21 02:59 Last Admin: 10/23/21 02:51 Dose: Not Given Documented by: Magnesium Hydroxide (Magnesium Hydroxide Susp 30 Ml Udc) 30 ml PO Q12H PRN PRN Reason: Constipation Stop: 11/19/21 20:25 Miscellaneous (Icu Electrolyte Replacement Protocol) 1 ea N/A BID@ [facility]; Protocol Stop: 10/29/21 17:59 Last Admin: 10/23/21 05:15 Dose: Not Given Documented by: Miscellaneous (Icu Electrolyte Replacement Protocol) 1 ea N/A BID@ [facility]; Protocol Stop: 10/30/21 17:59 Miscellaneous Information (Vancomycin Consult Active) 1 ea N/A UD PRN PRN Reason: Consult Stop: 11/21/21 03:58 Miscellaneous Information (Meropenem Consult Active) 1 ea N/A UD PRN PRN Reason: Consult Stop: 11/21/21 10:47 Ondansetron HCl (Ondansetron Inj 2 Mg/Ml 2 Ml Vial) 4 mg IV Q6H PRN PRN Reason: Nausea Stop: 11/19/21 20:25 Polyethylene Glycol (Polyethylene (Miralax) 17 Gm Pack) 17 gm PO DAILY PRN PRN Reason: Constipation Stop: 11/19/21 20:25
[2021-10-23] MEDS: methylPREDNISolone 80 MG in SYRINGE 0 ML IV SCH ×3 (09:03→20:28)
[2021-10-23] MEDS: FOLIC ACID 1 MG in SYRINGE 9.8 ML IV SCH (09:04)
[2021-10-23] MEDS: PANTOprazole 40 MG in SYRINGE 0 ML IV SCH ×2 (09:18→20:28)
[2021-10-23] MEDS: POTASSIUM CHLORIDE / WTR 20 MEQ/100 ML PLCT IV SCH ×2 (09:19→11:06)
[2021-10-23] MEDS: THIAMINE HCL 100 MG in SYRINGE 9 ML IV SCH (09:19)
[2021-10-23] MEDS: MAGNESIUM SULFATE / D5W 1 GM/100 ML BAG IV SCH ×2 (09:19→11:06)
--- NOTE | 2021-10-23 10:00 | Gastroenterology Progress Note ---
Date of Service October 23, 2021 Assessment & Plan (1) Hepatic encephalopathy: Plan: The patient is quite ill as result of his recent iatrogenic complication. From the gastroenterology standpoint there is not any new recommendations aside from continued use of lactulose to help with his underlying encephalopathy. If the patient is able to take orals then perhaps the patient would benefit from starting rifaximin 550 mg twice daily. If the patient is unable to take orals then transitioning to lactulose enemas would be of benefit Recommendations Consider starting rifaximin 550 mg twice daily If patient unable to take p.o. would then recommend lactulose enemas Admission and Anticipated Discharge Date Admission Date: October 20, 2021 Subjective The patient is a 61 yo male, w hx of Crohn's disease, ELIAN/ANG cirrhosis (MELD 13) complicated by esophageal, gastric varices, anemia, ascites, portal HTN who was admitted with AMS. Unfortunately it appears that he received metronidazole oral solution intravenously which resulted in respiratory distress and intubation. Of note he was extubated early this morning and appears to be slowly improving. Physical Exam Neck: trachea midline, no thyromegaly Respiratory: Auscultation: + diminished lung sounds, + crackles and + rales Cardiovascular: Heart Sounds: + murmur Gastrointestinal (Abdomen): Percussion/Palpation: abdomen nontender, no guarding and abdomen not rigid Results & Data ([facility]) Vital Signs (Past 12 Hours) Vital Signs Temp Pulse Resp BP Pulse Ox 10/23/21 08:15 36.4 C L 66 16 101/44 L 95 10/23/21 08:00 36.4 C L 57 L 27 H 103/51 L 93 10/23/21 07:35 55 L 11 L 88 L 10/23/21 07:30 36.5 C 57 L 21 82/50 L 90 10/23/21 07:00 36.5 C 55 L 20 97/55 L 87 L 10/23/21 06:40 36.6 C 50 L 20 92 10/23/21 06:30 36.6 C 54 L 20 103/57 L 92 10/23/21 06:20 36.7 C 46 L 20 92 10/23/21 06:10 36.7 C 48 L 20 92 10/23/21 06:00 36.8 C 46 L 20 90/53 L 91 05/28/22 05:30 36.9 C 49 L 20 92/51 L 93 10/23/21 05:00 37.1 C 53 L 20 89/53 L 97 10/23/21 04:50 37.1 C 61 20 96 10/23/21 04:40 37.2 C 75 21 94 10/23/21 04:30 37.2 C 51 L 20 94/54 L 97 10/23/21 04:20 37.2 C 49 L 20 98 10/23/21 04:10 37.2 C 48 L 20 96 10/23/21 04:00 37.2 C 51 L 20 88/50 L 96 10/23/21 03:50 37.1 C 51 L 20 97 10/23/21 03:40 37.1 C 52 L 20 96 10/23/21 03:30 37.0 C 51 L 20 88/48 L 96 10/23/21 03:20 36.8 C 51 L 20 97 10/23/21 03:10 36.7 C 51 L 20 97 10/23/21 03:00 36.6 C 51 L 20 88/51 L 98 10/23/21 02:50 36.5 C 51 L 20 98 10/23/21 02:40 36.4 C L 51 L 20 98 10/23/21 02:30 36.3 C L 51 L 20 85/50 L 97 10/23/21 02:20 36.3 C L 52 L 20 98 10/23/21 02:10 36.2 C L 53 L 20 97 10/23/21 02:00 36.2 C L 52 L 20 88/52 L 96 10/23/21 01:50 36.2 C L 57 L 20 96 10/23/21 01:45 36.2 C L 60 20 95 10/23/21 01:30 36.2 C L 59 L 20 106/64 97 10/23/21 01:17 36.2 C L 54 L 20 108/48 L 96 10/23/21 01:15 36.2 C L 60 20 96 10/23/21 01:00 36.3 C L 58 L 20 113/63 96 10/23/21 00:47 36.3 C L 53 L 20 105/48 L 95 10/23/21 00:45 36.3 C L 54 L 20 94 10/23/21 00:32 36.3 C L 53 L 20 107/48 L 94 10/23/21 00:30 36.3 C L 54 L 20 97/55 L 95 10/23/21 00:20 36.4 C L 66 20 91 10/23/21 00:14 36.4 C L 63 20 121/56 L 93 10/23/21 00:10 36.4 C L 62 20 96 10/23/21 00:04 36.4 C L 60 17 112/51 L 94 10/23/21 00:00 36.4 C L 65 20 100/60 95 10/22/21 23:50 36.4 C L 59 L 20 95 10/22/21 23:40 36.4 C L 71 21 94 10/22/21 23:30 36.4 C L 65 20 103/56 L 95 10/22/21 23:20 36.4 C L 65 20 95 10/22/21 23:10 36.4 C L 67 17 95 10/22/21 23:06 36.4 C L 66 17 113/51 L 96 10/22/21 23:00 36.5 C 69 20 91/53 L 95 10/22/21 22:50 36.5 C 68 20 94 10/22/21 22:40 36.5 C 70 17 96 10/22/21 22:36 36.5 C 71 20 115/52 L 94 10/22/21 22:30 36.5 C 70 20 101/54 L 94 10/22/21 22:21 36.5 C 71 22 110/55 L 94 10/22/21 22:20 36.5 C 72 21 93 10/22/21 22:12 36.6 C 69 21 128/60 93 10/22/21 22:10 36.5 C 64 18 89 L 10/22/21 22:03 36.6 C 76 20 116/80 91 10/22/21 22:00 36.6 C 73 20 102/53 L 95 Laboratory Results Laboratory Results - last 24 hr 10/20/21 10/22/21 10/22/21 16:35 04:16 10:19 WBC RBC Hgb POC Hgb 8.5 L 7.8 L Hct POC Hct 25 L 23 L MCV MCH MCHC RDW Std Deviation RDW Coeff of Ronnie Plt Count Immature Gran % (Auto) Neut % (Auto) Lymph % (Auto) Redwood % (Auto) Eos % (Auto) Baso % (Auto) Neut # (Auto) Lymph # (Auto) Redwood # (Auto) Eos # (Auto) Baso # (Auto) Immature Gran # (Auto) Platelet Estimate Polychromasia Hypochromasia Anisocytosis Microcytosis Target Cells Ovalocytes Acanthocytes (Spur) PT INR Fibrinogen Fibrin Degrad Products D-Dimer Specimen Type Arterial Sample Site Art Line Art Line Patient Temperature 33.6 POC pH 7.34 L 7.36 POC pCO2 39 35 POC pO2 59 L 62 L POC HCO3 21 20 POC Total CO2 22 L 21 L POC Base Excess -5.0 -6.0 O2 Sat Pulse Oximetry 98 ABG pH (Temp Correct) 7.383 7.374 ABG pCO2 (Temp Corrct 33 L 33 L POC ABG pO2 at Pt Temp 46 58 POC ABG O2 Sat 88.0 L 91.0 Sravan Test Not Performed NA O2 Delivery Device Ventilator Ventilator POC O2 Rate 26 26 Minute Ventilation 10.4 Vent Mode AC POC FiO2 40 Tidal Volume 400 400 End Tidal CO2 19 PEEP 8 5 POC Sodium 142 142 Sodium POC Potassium 2.9 L 3.0 L Potassium Chloride Carbon Dioxide Anion Gap BUN Creatinine Est Cr Clr Drug Dosing Est GFR ( Amer) Est GFR (Non-Af Amer) BUN/Creatinine Ratio Glucose Lactate Calcium Phosphorus Magnesium Total Bilirubin AST ALT Alkaline Phosphatase Ammonia Lactate Dehydrogenase Total Protein Albumin Globulin Albumin/Globulin Ratio Procalcitonin Cortisol AM Sample Random Vancomycin Blood Type O Positive Antibody Screen NEGATIVE Crossmatch See Detail 10/22/21 10/22/21 10/22/21 10:44 15:02 15:02 WBC RBC Hgb POC Hgb Hct POC Hct MCV MCH MCHC RDW Std Deviation RDW Coeff of Ronnie Plt Count Immature Gran % (Auto) Neut % (Auto) Lymph % (Auto) Redwood % (Auto) Eos % (Auto) Baso % (Auto) Neut # (Auto) Lymph # (Auto) Redwood # (Auto) Eos # (Auto) Baso # (Auto) Immature Gran # (Auto) Platelet Estimate Polychromasia Hypochromasia Anisocytosis Microcytosis Target Cells Ovalocytes Acanthocytes (Spur) PT INR Fibrinogen Fibrin Degrad Products D-Dimer Specimen Type Sample Site Patient Temperature POC pH POC pCO2 POC pO2 POC HCO3 POC Total CO2 POC Base Excess O2 Sat Pulse Oximetry ABG pH (Temp Correct) ABG pCO2 (Temp Corrct POC ABG pO2 at Pt Temp POC ABG O2 Sat Sravan Test O2 Delivery Device POC O2 Rate Minute Ventilation Vent Mode POC FiO2 Tidal Volume End Tidal CO2 PEEP POC Sodium Sodium 141 POC Potassium Potassium 3.2 L Chloride 107 Carbon Dioxide 22 Anion Gap 12 H BUN 35 H Creatinine 1.33 Est Cr Clr Drug Dosing 50.1 Est GFR ( Amer) 67.3 Est GFR (Non-Af Amer) 58.1 BUN/Creatinine Ratio 26.3 H Glucose 153 H Lactate 4.6 H* Calcium 8.2 L Phosphorus Magnesium Total Bilirubin 3.5 H AST 28 ALT 20 Alkaline Phosphatase 62 Ammonia Lactate Dehydrogenase Total Protein 5.0 L Albumin 2.8 L Globulin 2.2 L Albumin/Globulin Ratio 1.3 Procalcitonin Cortisol AM Sample Random Vancomycin 10.8 Blood Type Antibody Screen Crossmatch 10/22/21 10/22/21 10/22/21 15:06 15:06 15:06 WBC RBC Hgb POC Hgb Hct POC Hct MCV MCH MCHC RDW Std Deviation RDW Coeff of Ronnie Plt Count Immature Gran % (Auto) Neut % (Auto) Lymph % (Auto) Redwood % (Auto) Eos % (Auto) Baso % (Auto) Neut # (Auto) Lymph # (Auto) Redwood # (Auto) Eos # (Auto) Baso # (Auto) Immature Gran # (Auto) Platelet Estimate Polychromasia Hypochromasia Anisocytosis Microcytosis Target Cells Ovalocytes Acanthocytes (Spur) PT 15.1 H INR 1.4 H Fibrinogen 186 D Fibrin Degrad Products >40 H D-Dimer > 65260 H* Specimen Type Sample Site Patient Temperature POC pH POC pCO2 POC pO2 POC HCO3 POC Total CO2 POC Base Excess O2 Sat Pulse Oximetry ABG pH (Temp Correct) ABG pCO2 (Temp Corrct POC ABG pO2 at Pt Temp POC ABG O2 Sat Sravan Test O2 Delivery Device POC O2 Rate Minute Ventilation Vent Mode POC FiO2 Tidal Volume End Tidal CO2 PEEP POC Sodium Sodium POC Potassium Potassium Chloride Carbon Dioxide Anion Gap BUN Creatinine Est Cr Clr Drug Dosing Est GFR ( Amer) Est GFR (Non-Af Amer) BUN/Creatinine Ratio Glucose Lactate Calcium Phosphorus Magnesium Total Bilirubin AST ALT Alkaline Phosphatase Ammonia Lactate Dehydrogenase 264 H Total Protein Albumin Globulin Albumin/Globulin Ratio Procalcitonin Cortisol AM Sample Random Vancomycin Blood Type Antibody Screen Crossmatch 10/22/21 10/22/21 10/23/21 18:30 19:30 03:25 WBC 15.87 H RBC 3.32 L Hgb 6.8 L* POC Hgb Hct 22.1 L POC Hct MCV 66.6 L MCH 20.5 L MCHC 30.8 L RDW Std Deviation 61.8 H RDW Coeff of Ronnie 26.3 H Plt Count 59 L Immature Gran % (Auto) 0.9 Neut % (Auto) 89.4 Lymph % (Auto) 3.3 Redwood % (Auto) 6.3 Eos % (Auto) 0.0 Baso % (Auto) 0.1 Neut # (Auto) 14.19 H Lymph # (Auto) 0.53 L Redwood # (Auto) 1.00 H Eos # (Auto) 0.00 Baso # (Auto) 0.01 Immature Gran # (Auto) 0.14 H Platelet Estimate Decreased L Polychromasia 1+ Hypochromasia Present Anisocytosis Present Microcytosis Present Target Cells Ovalocytes 1+ Acanthocytes (Spur) 1+ PT 17.0 H INR 1.6 H Fibrinogen 162 L Fibrin Degrad Products D-Dimer Specimen Type Sample Site Patient Temperature POC pH POC pCO2 POC pO2 POC HCO3 POC Total CO2 POC Base Excess O2 Sat Pulse Oximetry ABG pH (Temp Correct) ABG pCO2 (Temp Corrct POC ABG pO2 at Pt Temp POC ABG O2 Sat Sravan Test O2 Delivery Device POC O2 Rate Minute Ventilation Vent Mode POC FiO2 Tidal Volume End Tidal CO2 PEEP POC Sodium Sodium POC Potassium Potassium Chloride Carbon Dioxide Anion Gap BUN Creatinine Est Cr Clr Drug Dosing Est GFR ( Amer) Est GFR (Non-Af Amer) BUN/Creatinine Ratio Glucose Lactate 2.7 H* Calcium Phosphorus Magnesium Total Bilirubin AST ALT Alkaline Phosphatase Ammonia Lactate Dehydrogenase Total Protein Albumin Globulin Albumin/Globulin Ratio Procalcitonin Cortisol AM Sample Random Vancomycin Blood Type Antibody Screen Crossmatch 10/23/21 10/23/21 10/23/21 03:25 03:25 03:25 WBC RBC Hgb POC Hgb Hct POC Hct MCV MCH MCHC RDW Std Deviation RDW Coeff of Ronnie Plt Count Immature Gran % (Auto) Neut % (Auto) Lymph % (Auto) Redwood % (Auto) Eos % (Auto) Baso % (Auto) Neut # (Auto) Lymph # (Auto) Redwood # (Auto) Eos # (Auto) Baso # (Auto) Immature Gran # (Auto) Platelet Estimate Polychromasia Hypochromasia Anisocytosis Microcytosis Target Cells Ovalocytes Acanthocytes (Spur) PT INR Fibrinogen Fibrin Degrad Products D-Dimer Specimen Type Sample Site Patient Temperature POC pH POC pCO2 POC pO2 POC HCO3 POC Total CO2 POC Base Excess O2 Sat Pulse Oximetry ABG pH (Temp Correct) ABG pCO2 (Temp Corrct POC ABG pO2 at Pt Temp POC ABG O2 Sat Sravan Test O2 Delivery Device POC O2 Rate Minute Ventilation Vent Mode POC FiO2 Tidal Volume End Tidal CO2 PEEP POC Sodium Sodium 139 140 POC Potassium Potassium 3.7 3.7 Chloride 108 H 108 H Carbon Dioxide 23 23 Anion Gap 8 9 BUN 36 H 36 H Creatinine 1.25 1.21 Est Cr Clr Drug Dosing 53.3 55.0 Est GFR ( Amer) 72.6 75.5 Est GFR (Non-Af Amer) 62.6 65.1 BUN/Creatinine Ratio 28.8 H 29.8 H Glucose 166 H 165 H Lactate 1.6 Calcium 8.0 L 8.0 L Phosphorus 4.2 Magnesium 1.9 Total Bilirubin 3.9 H AST 23 ALT 19 Alkaline Phosphatase 55 Ammonia Lactate Dehydrogenase Total Protein 4.5 L Albumin 2.5 L Globulin 2.0 L Albumin/Globulin Ratio 1.3 Procalcitonin Cortisol AM Sample Random Vancomycin Blood Type Antibody Screen Crossmatch 10/23/21 10/23/21 10/23/21 03:25 03:25 03:25 WBC RBC Hgb POC Hgb Hct POC Hct MCV MCH MCHC RDW Std Deviation RDW Coeff of Ronnie Plt Count Immature Gran % (Auto) Neut % (Auto) Lymph % (Auto) Redwood % (Auto) Eos % (Auto) Baso % (Auto) Neut # (Auto) Lymph # (Auto) Redwood # (Auto) Eos # (Auto) Baso # (Auto) Immature Gran # (Auto) Platelet Estimate Polychromasia Hypochromasia Anisocytosis Microcytosis Target Cells Ovalocytes Acanthocytes (Spur) PT 17.0 H INR 1.6 H Fibrinogen 166 L Fibrin Degrad Products D-Dimer > 50842 H* Specimen Type Sample Site Patient Temperature POC pH POC pCO2 POC pO2 POC HCO3 POC Total CO2 POC Base Excess O2 Sat Pulse Oximetry ABG pH (Temp Correct) ABG pCO2 (Temp Corrct POC ABG pO2 at Pt Temp POC ABG O2 Sat Sravan Test O2 Delivery Device POC O2 Rate Minute Ventilation Vent Mode POC FiO2 Tidal Volume End Tidal CO2 PEEP POC Sodium Sodium POC Potassium Potassium Chloride Carbon Dioxide Anion Gap BUN Creatinine Est Cr Clr Drug Dosing Est GFR ( Amer) Est GFR (Non-Af Amer) BUN/Creatinine Ratio Glucose Lactate Calcium Phosphorus Magnesium Total Bilirubin AST ALT Alkaline Phosphatase Ammonia Lactate Dehydrogenase 241 Total Protein Albumin Globulin Albumin/Globulin Ratio Procalcitonin Cortisol AM Sample Random Vancomycin 16.4 Blood Type Antibody Screen Crossmatch 10/23/21 10/23/21 10/23/21 03:25 03:25 03:25 WBC 7.52 RBC 3.76 L Hgb 8.5 L POC Hgb Hct 26.8 L POC Hct MCV 71.3 L D MCH 22.6 L MCHC 31.7 L RDW Std Deviation 68.4 H RDW Coeff of Ronnie 26.4 H Plt Count 31 L Immature Gran % (Auto) 0.5 Neut % (Auto) 89.3 Lymph % (Auto) 4.9 Redwood % (Auto) 5.3 Eos % (Auto) 0.0 Baso % (Auto) 0.0 Neut # (Auto) 6.71 H Lymph # (Auto) 0.37 L Redwood # (Auto) 0.40 Eos # (Auto) 0.00 Baso # (Auto) 0.00 Immature Gran # (Auto) 0.04 H Platelet Estimate SIGNIFIC DECREASED Polychromasia Hypochromasia Present Anisocytosis Present Microcytosis Target Cells 1+ Ovalocytes Acanthocytes (Spur) PT INR Fibrinogen Fibrin Degrad Products D-Dimer Specimen Type Sample Site Patient Temperature POC pH POC pCO2 POC pO2 POC HCO3 POC Total CO2 POC Base Excess O2 Sat Pulse Oximetry ABG pH (Temp Correct) ABG pCO2 (Temp Corrct POC ABG pO2 at Pt Temp POC ABG O2 Sat Sravan Test O2 Delivery Device POC O2 Rate Minute Ventilation Vent Mode POC FiO2 Tidal Volume End Tidal CO2 PEEP POC Sodium Sodium POC Potassium Potassium Chloride Carbon Dioxide Anion Gap BUN Creatinine Est Cr Clr Drug Dosing Est GFR ( Amer) Est GFR (Non-Af Amer) BUN/Creatinine Ratio Glucose Lactate Calcium Phosphorus Magnesium Total Bilirubin AST ALT Alkaline Phosphatase Ammonia 79.0 H Lactate Dehydrogenase Total Protein Albumin Globulin Albumin/Globulin Ratio Procalcitonin 5.34 H Cortisol AM Sample Random Vancomycin Blood Type Antibody Screen Crossmatch 10/23/21 10/23/21 10/23/21 05:14 05:22 07:02 WBC RBC Hgb POC Hgb 8.8 L Hct POC Hct 26 L MCV MCH MCHC RDW Std Deviation RDW Coeff of Ronnie Plt Count Immature Gran % (Auto) Neut % (Auto) Lymph % (Auto) Redwood % (Auto) Eos % (Auto) Baso % (Auto) Neut # (Auto) Lymph # (Auto) Redwood # (Auto) Eos # (Auto) Baso # (Auto) Immature Gran # (Auto) Platelet Estimate Polychromasia Hypochromasia Anisocytosis Microcytosis Target Cells Ovalocytes Acanthocytes (Spur) PT INR Fibrinogen Fibrin Degrad Products >40 H D-Dimer Specimen Type Sample Site Art Line Patient Temperature POC pH 7.40 POC pCO2 38 POC pO2 73 L POC HCO3 24 POC Total CO2 25 POC Base Excess -1.0 O2 Sat Pulse Oximetry ABG pH (Temp Correct) 7.399 ABG pCO2 (Temp Corrct 38 POC ABG pO2 at Pt Temp 73 POC ABG O2 Sat 94.0 Sravan Test NA O2 Delivery Device Ventilator POC O2 Rate 20 Minute Ventilation 8.1 Vent Mode POC FiO2 40 Tidal Volume 400 End Tidal CO2 PEEP 5 POC Sodium 139 Sodium POC Potassium 3.7 Potassium Chloride Carbon Dioxide Anion Gap BUN Creatinine Est Cr Clr Drug Dosing Est GFR ( Amer) Est GFR (Non-Af Amer) BUN/Creatinine Ratio Glucose Lactate Calcium Phosphorus Magnesium Total Bilirubin AST ALT Alkaline Phosphatase Ammonia Lactate Dehydrogenase Total Protein Albumin Globulin Albumin/Globulin Ratio Procalcitonin Cortisol AM Sample 23.42 H Random Vancomycin Blood Type Antibody Screen Crossmatch
[2021-10-23] MEDS ORDERED: FUROSEMIDE 40 MG/4 ML VIAL IV ONE ×2 (11:33→11:48)
[2021-10-23] MEDS ORDERED: RAPID SEQUENCE INDUCTION BAG ONE (11:39)
[2021-10-23 11:51] LABS: iSTAT Arterial Blood Gas HCO3 27 meg/L (19-24); iSTAT Arterial Blood Gas pCO2 85 mmHg (35-46); iSTAT Arterial Blood Gas pH 7.11 (7.35-7.45); iSTAT Arterial Blood Gas pO2 61 mmHg (80-95); iSTAT Carbon Dioxide 30 mmol/L (24-31); iSTAT FiO2 100 %; iSTAT Site Art Line
--- NOTE | 2021-10-23 12:13 | Communication Note ---
Date of Service: October 23, 2021 I presented to the patient's bedside due to worsening hypoxemia. He is now on BiPAP. ABG was drawn which demonstrated acute hypercapnic respiratory failure with hypoxemia. 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 He does take deeper breaths when coached. I called the patient's sister who is the POA. She notes that she does not think that he would want heroic measures such as CPR, ACLS or reintubation in the event of a cardiac or respiratory failure. She is agreeable to trialing him on her current measures which include BiPAP and low-dose vasopressors. Should his condition worsen, she is agreeable to transitioning his care to comfort measures only which she feels is very much in line with what he would want. Of note, I did do a chest ultrasound. I did note small bilateral pleural effusions which do not appear amenable to thoracentesis at this time. B-lines were noted. He was given 40 mg of IV Lasix to improve his volume status. Ascitic fluid was also noted on abdominal ultrasound which appeared to be loculated. Will continue ICU care at this time. CRITICAL CARE TIME - I have personally spent 38 minutes of critical care time in the direct management of this patient. This is a life/limb threatening event. This includes time spent evaluating patient, direct bedside care, chart review, placing orders, interpretation of diagnostic studies, discussion with consultants, patient, and family members, as well as other required patient management activities. This time is exclusive of all separately billable procedures, and teaching time and separate from and in addition to any other critical care service time. Coding Level of Care Code Critical Care kathy [email or web address] 30 min Time Spent (min) 38
[2021-10-23] MEDS: LACTULOSE SYRUP 20 GM/30 ML UDC PO SCH ×2 (12:44→20:28)
[2021-10-23 13:19] LABS: Codeine Urine NEGATIVE ng/mL (<50); Hydrocodone Urine NEGATIVE ng/mL (<50); Hydromor Urine NEGATIVE ng/mL (<50); Marijuana Quant, GCMS Urine 56 ng/mL (<5); Morphine Urine NEGATIVE ng/mL (<50); Norhydrocodone Conf Ur NEGATIVE ng/mL (<50); Noroxycodone Urine 3680 ng/mL (<50); Oxycodone Urine 2230 ng/mL (<50); Oxymorph Urine 6530 ng/mL (<50)
--- NOTE | 2021-10-23 13:47 | Pharmacy Report ---
Pharmacy PK ABX Note - Date of Service October 23, 2021 - Assessment and Plan Assessment 10/23/21 * Blood cultures (10/22/21) show no growth at 24 hours * Improvement in SCr from yesterday (1.39 -> 1.21 mg/dL), baseline SCr ~1 * Urine output ~425 mL yesterday * Noted improvement in leukocytosis as well (WBC 17 K -> 7.5 K) * Patient with worsening hypoxemia, on BiPAP 10/22/21 * 61 year old M receiving meropenem and vancomycin for PNA, SBP prophylaxis and exposure of bloodstream from oral metronidazole suspension given intravenously overnight last night * Pertinent culture data includes positive MRSA nasal swab * Patient currently in ICU being treated aggressively for ?DIC and requiring pressor support * SCr with notable increase from yesterday and UOP trending down per ICU rounds discussion. Will dose vancomycin via level for now Plan * Random vancomycin level this morning of 16.4 mcg/mL, redosed at 1 g IV q18h to achieve target AUC:JOSHUA * Will order early trough level prior to steady-state overnight in light of patient's unstable condition * Meropenem adjusted to 500 mg IV q6h based on eCrCl > 49 mL/min Pharmacy will continue to follow and will adjust dose/frequency as necessary. Thank you. Pharmacy has transitioned to AUC monitoring for vancomycin. AUC/JOSHUA is the preferred PK/PD target and is associated with decreased risk of nephrotoxicity compared to traditional trough targets.
[2021-10-23 14:10] LABS: iSTAT Arterial Blood Gas HCO3 27 meg/L (19-24); iSTAT Arterial Blood Gas pCO2 80 mmHg (35-46); iSTAT Arterial Blood Gas pH 7.13 (7.35-7.45); iSTAT Arterial Blood Gas pO2 63 mmHg (80-95); iSTAT Carbon Dioxide 29 mmol/L (24-31); iSTAT FiO2 80 %; iSTAT Site Art Line
[2021-10-23] MEDS ORDERED: ALBUMIN 5% 250 ML IV ONE (14:48)
[2021-10-23] MEDS ORDERED: STAT IV Infusion **Titration per Protocol STA (15:08)
[2021-10-23] MEDS ORDERED: LORazepam 2 MG/1 ML VIAL IV PRN (15:08)
[2021-10-23] MEDS ORDERED: ONDANSETRON INJ 2 MG/ML 2 ML VIAL IV PRN (15:08)
[2021-10-23] MEDS ORDERED: MoRPHine SULFATE 2 MG/ML CARP IV PRN (15:08)
[2021-10-23] MEDS ORDERED: MoRPHine SULFATE 5 MG/0.25 ML UDP PO PRN (15:08)
[2021-10-23] MEDS ORDERED: GLYCOPYRROLATE 0.2 MG/ML VIAL IV PRN (15:08)
[2021-10-23] MEDS ORDERED: MoRPHine SULF/NSS 250 MG/250 ML BTL IV SCH (15:15)
[2021-10-23] MEDS ORDERED: ICU ELECTROLYTE REPLACEMENT PROTOCOL SCH (18:00)
--- NOTE | 2021-10-23 21:02 | Death Pronouncement Note ---
Date of Service October 23, 2021 Pronouncement Note Admission Date Admission Date: October 20, 2021 Date and Time of Date of : 10/23/21 Time of : 20:45 PCOD Preliminary cause of : Cirrhosis of liver Contributing Factors (1) Cirrhosis of liver: (2) Hepatic encephalopathy: (3) Abdominal ascites: (4) Lactic acid acidosis: (5) Elevated troponin: (6) Chronic anemia: (7) DIC (disseminated intravascular coagulation): (8) Respiratory failure: Hospital Course Hospital Course: Patient initially admitted to this institution on 10/20 with increasing confusion in the setting of hepatic encephalopathy with ongoing diagnosis of cirrhosis of the liver and abdominal ascites. Patient did require lactulose and enemas throughout his stay. Additionally, patient is with chronic history of severe protein malnutrition and appears generally cachectic. Unfortunately, his mental status continued to wane. During this period of decline, patient was also unfortunately received a medication error which may have further contributed to his ongoing decline in status. He was brought emergently to the ICU on the night of 10/21 where he required intubation for airway protection and appropriate oxygenation/ventilation. Patient developed a profound coagulopathy with progression to DIC. Thankfully, through the course of aggressive treatment and resuscitative medicine, the patient did show improvement mentally (was awake and communicative), from a respiratory standpoint (required minimal ventilator settings), and medically (improved coagulopathy/electrolytes). Patient was able to be liberated from the ventilator on 10/23. Unfortunately, patient developed respiratory distress with increased work of breathing and poor inspiratory effort. He was placed back on BiPAP for support of work of breathing. When family arrived at bedside (sister - Cele), it was felt that the patient would not wish to undergo ongoing heroic measures. Additionally, given his ongoing decline and poor baseline status, it was felt that the patient would not wish to be reintubated. At this point, decision was made by family to proceed with COMFORT MEASURES ONLY. Patient was provided comfort orders as well as morphine gtt for work of breathing. Patient ceased to breath at 2044. Family updated at bedside and provided emotional support. All questions were answered to the best of my ability. Nursing sintering plant supervisor present at bedside to obtain information for certificate. Additional Data Confirmation of : no pulse, no respirations, no heart sounds and pupils fixed and dilated Family: at bedside Attending/PCP notified?: No Attending physician: Davon Vásquez MD Was code activated?: No Autopsy requested?: No land title examiner notified?: Yes Organ bank notified?: Yes Advance directives: No Coding Level of Care Code D/C DAY MANAGEMENT <30 MINS Diagnoses Hepatic encephalopathy K72.90 Cirrhosis of liver K74.60 Abdominal ascites R18.8 Lactic acid acidosis E87.2 Elevated troponin R77.8 Chronic anemia D64.9 DIC (disseminated intravascular coagulation) D65 Respiratory failure J96.90 Time Spent (min) 25
[2021-10-24] MEDS ORDERED: VANCOMYCIN TROUGH ONE (01:30)
--- NOTE | 2021-10-24 09:04 | Discharge Summary ---
Date of Service October 24, 2021 Admission HPI Per Admitting Provider This is a 61-year-old male who who has significant past medical history of alcoholic cirrhosis, portal hypertension, esophageal varices, chronic anemia, severe malnutrition, ankylosing spondylitis, history of Crohn's, hx of SBO, GERD, NOLBERTO, hepatitis B, tobacco abuse, history of alcohol abuse presents to ED secondary to confusion. ROS and history unobtainable by patient as he has encephalopathic. Per patient's nurse he was brought in by EMS secondary to being found by family member and unresponsive. It is felt that he was last seen in his normal state approximately 24 hours ago. In ED patient was hemodynamically stable although severely encephalopathic. Lab work significant for elevated ammonia level at 96, hypomagnesemia at 1.0, lactic acidosis with a lactic acid of 3.6, elevated troponin 23.3, INR 1.4 WBC 11.87, H&H 8.7 and 28.2, platelet count 146. Head CT was negative for acute abnormality. Patient refused chest x-ray. An EKG was performed with very poor quality secondary to movement, no apparent ischemic change. In ED he received IV thiamine, 1 L of IV fluid, 1 g magnesium sulfate and 1 g calcium gluconate. Principal Diagnosis Hepatic encephalopathy in the setting of liver cirrhosis Severe protein calorie malnutrition, failure to thrive, cachexia Ascites, anasarca Respiratory failure Coagulopathy, DIC Discharge Data Allergies Allergy/AdvReac Type Severity Reaction Status Date / Time adalimumab Allergy Severe LEGS & Verified 10/20/21 17:52 FEET SWELLED, ABCESS ON ANKLE etanercept Allergy Severe SEVERE Verified 10/20/21 17:52 CUTANEOUS LOCAL REACTION tromethamine Allergy Severe RASH Verified 10/20/21 17:52 bee venom protein (honey bee) Allergy Intermediate PASSED OUT Verified 10/20/21 17:52 benzyl alcohol Allergy Intermediate RASH Verified 10/20/21 17:52 mouse protein Allergy Intermediate FACE AND Verified 10/20/21 17:52 MOUTH SWELL Penicillins Allergy Intermediate PASSED OUT Verified 10/20/21 17:52 secukinumab Allergy Intermediate FACE AND Verified 10/20/21 17:52 MOUTH SWELL shellfish derived Allergy Intermediate HYPERTENSION-CLAMS Verified 10/20/21 17:52 & CRABSS sorbitan esters Allergy Intermediate FACE AND Verified 10/20/21 17:52 MOUTH SWELL varenicline AdvReac Intermediate VEINS IN Verified 10/20/21 17:52 FEET BLEW Consultations 10/20/21 17:49 ED Decision to Admit Stat 10/20/21 20:26 Consult Gastroenterology Routine 10/22/21 00:09 Consult [employer] Routine 10/22/21 08:18 Consult Hematology Routine Ordered Studies 10/20/21 16:11 CT head/brain wo con Stat 10/20/21 18:30 CT abd pelvis wo con Urgent 10/20/21 20:26 US abdomen ltd ascites Routine 10/21/21 10:26 US paracentesis abd w/image Routine 10/21/21 23:54 CT head/brain wo con Urgent 10/22/21 00:09 CT abd pelvis IV con only Urgent CT angio chest PE protocol Urgent CT angio head w con Urgent 10/22/21 00:20 US point of care ultrasound Urgent Discharge Plan Discharge Items Patient Disposition: Other Date/Time: 10/23/21 20:45
== END 2021-10-23 21:45 | disposition expired | DRG 441 ==
LOC: ED 15:35 → SUATTDRO 17:53 → 2S 17:53 → 1E 10-21 23:12